=== PATIENT | male | born 1960 | race Caucasian/White ===

== ENCOUNTER → 2017-10-24 13:58 | Outpatient (CLI) | payer BC, SELFPAY ==
[2017-10-24 16:08] LABS: Absolute Lymphocyte Count 1.31 X10^3/ul (0.83-4.51); Absolute Neutrophil Count 2.4 X10^3/uL (2.0-7.7); Basophil% 2.2 % (0-1); Eosinophil# 0.24 X10^3/uL; Eosinophils% 5.2 % (0-5); Hematocrit 38.8 % (40-54); Hemoglobin 12.6 g/dl (13.0-16.5); Lymphocyte # 1.31 X10^3/ul (4.0); Lymphocyte % 28.4 % (19-41); Mean Corp Hgb Conc 32.5 g/gl (32-36); Mean Corpuscular Hgb 29.5 pg (27.0-32.0); Mean Corpuscular Volume 90.9 fL (80-94); Mean Platelet Vol. 10.8 fl (6.2-12.0); Monocyte% 10.8 % (0-10); Neutrophil % 52.1 % (47-70); Platelet Count 272 K/mm3 (150-450); RBC Distribution Width CV 14.1 % (11.6-14.6); RBC Distribution Width SD 45.7 fl (35.1-43.9); Red Blood Count 4.27 M/mm3 (4.6-6.2); White Blood Count 4.6 K/mm3 (4.4-11.0)
[2017-10-24 16:16] LABS: POSITIVE COUNT NO; POSITIVE DIFFERENTIAL NO; POSITIVE MORPHOLOGY NO
[2017-10-24 16:40] LABS: ALB/GLOB Ratio 1.1 RATIO (0.9-2.4); AST(SGOT) 14 U/L (15-37); Alanine Aminotransfer ALT/SGPT 26 U/L (16-61); Albumin, Serum 3.8 g/dL (3.2-5.0); Alkaline Phosphatase 80 U/L (45-117); Anion Gap 5 (5-15); BUN 19 mg/dL (7-18); BUN/Creat Ratio 21.9 RATIO (10-20); Calcium,Total 8.7 mg/dL (8.5-10.1); Chloride 103 mmol/L (98-107); Creatinine, Serum 0.87 mg/dL (0.70-1.30); EST Glomerular Filtration Rate 97 mL/min (>60); Est Glom Filt Rate - Afr Amer 117 mL/min (>60); Globulin 3.4 g/dL (2.2-4.2); Glucose 77 mg/dL (74-106); Potassium 3.8 mmol/L (3.5-5.1); Protein, Total 7.2 g/dL (6.4-8.2); Sodium Level 139 mmol/L (136-145)
== END ==
PROVIDERS: Family Provider Family Medicine; PCP Family Medicine; Visit Provider Internal Medicine Rheumatology
DX: L40.59 Other psoriatic arthropathy (principal); Z79.899 Other long term (current) drug therapy; L40.8 Other psoriasis; M18.11 Unilateral primary osteoarthritis of first carpometacarpal joint, right hand
CPT/HCPCS: 36415; 80053; 85025

== ENCOUNTER → 2018-01-25 16:25 | Outpatient (CLI) | payer BC, SELFPAY ==
[2018-01-25 17:05] LABS: Absolute Lymphocyte Count 1.27 X10^3/ul (0.83-4.51); Absolute Neutrophil Count 3.2 X10^3/uL (2.0-7.7); Basophil# 0.11 X10^3/uL; Basophil% 2.1 % (0-1); Eosinophil# 0.27 X10^3/uL; Hematocrit 38.2 % (40-54); Hemoglobin 12.3 g/dl (13.0-16.5); Lymphocyte # 1.27 X10^3/ul (4.0); Lymphocyte % 23.7 % (19-41); Mean Corp Hgb Conc 32.2 g/gl (32-36); Mean Corpuscular Hgb 29.2 pg (27.0-32.0); Mean Corpuscular Volume 90.7 fL (80-94); Mean Platelet Vol. 10.5 fl (6.2-12.0); Monocyte# 0.52 X10^3/uL; Monocyte% 9.7 % (0-10); Neutrophil # 3.16 X10^3/uL (2.7-7.7); Neutrophil % 58.9 % (47-70); Platelet Count 288 K/mm3 (150-450); RBC Distribution Width SD 45.9 fl (35.1-43.9); Red Blood Count 4.21 M/mm3 (4.6-6.2); White Blood Count 5.4 K/mm3 (4.4-11.0)
[2018-01-25 17:33] LABS: ALB/GLOB Ratio 1.3 RATIO (0.9-2.4); AST(SGOT) 24 U/L (15-37); Alanine Aminotransfer ALT/SGPT 30 U/L (16-61); Albumin, Serum 4.1 g/dL (3.2-5.0); Alkaline Phosphatase 76 U/L (45-117); Anion Gap 6 (5-15); BUN 17 mg/dL (7-18); BUN/Creat Ratio 16.3 RATIO (10-20); Calcium,Total 8.6 mg/dL (8.5-10.1); Chloride 106 mmol/L (98-107); Creatinine, Serum 1.04 mg/dL (0.70-1.30); EST Glomerular Filtration Rate 78 mL/min (>60); Est Glom Filt Rate - Afr Amer 95 mL/min (>60); Globulin 3.1 g/dL (2.2-4.2); Glucose 85 mg/dL (74-106); Potassium 3.7 mmol/L (3.5-5.1); Protein, Total 7.2 g/dL (6.4-8.2); Sodium Level 141 mmol/L (136-145)
[2018-01-25 17:41] LABS: POSITIVE COUNT NO; POSITIVE DIFFERENTIAL NO; POSITIVE MORPHOLOGY NO
== END ==
PROVIDERS: Family Provider Family Medicine; PCP Family Medicine; Visit Provider Internal Medicine Rheumatology
DX: L40.59 Other psoriatic arthropathy (principal); Z79.899 Other long term (current) drug therapy; L40.8 Other psoriasis; M18.11 Unilateral primary osteoarthritis of first carpometacarpal joint, right hand; M21.40 Flat foot [pes planus] (acquired), unspecified foot; I10 Essential (primary) hypertension; E03.9 Hypothyroidism, unspecified; E78.5 Hyperlipidemia, unspecified; M51.37 Other intervertebral disc degeneration, lumbosacral region
CPT/HCPCS: 36415; 80053; 85025

== ENCOUNTER → 2018-05-10 11:43 | Outpatient (CLI) | payer BC, SELFPAY ==
[2018-05-10 14:45] LABS: Absolute Lymphocyte Count 1.12 X10^3/ul (0.83-4.51); Absolute Neutrophil Count 2.6 X10^3/uL (2.0-7.7); Basophil# 0.08 X10^3/uL; Basophil% 1.8 % (0-1); Eosinophil# 0.17 X10^3/uL; Eosinophils% 3.9 % (0-5); Hematocrit 40.4 % (40-54); Hemoglobin 12.7 g/dl (13.0-16.5); Lymphocyte # 1.12 X10^3/ul (4.0); Lymphocyte % 25.7 % (19-41); Mean Corp Hgb Conc 31.4 g/gl (32-36); Mean Corpuscular Hgb 28.7 pg (27.0-32.0); Mean Corpuscular Volume 91.4 fL (80-94); Mean Platelet Vol. 10.6 fl (6.2-12.0); Monocyte# 0.41 X10^3/uL; Monocyte% 9.4 % (0-10); Neutrophil # 2.56 X10^3/uL (2.7-7.7); Platelet Count 277 K/mm3 (150-450); RBC Distribution Width SD 45.9 fl (35.1-43.9); Red Blood Count 4.42 M/mm3 (4.6-6.2); White Blood Count 4.4 K/mm3 (4.4-11.0)
[2018-05-10 14:50] LABS: POSITIVE COUNT NO; POSITIVE DIFFERENTIAL NO; POSITIVE MORPHOLOGY NO
[2018-05-10 14:59] LABS: ALB/GLOB Ratio 1.2 RATIO (0.9-2.4); AST(SGOT) 16 U/L (15-37); Alanine Aminotransfer ALT/SGPT 29 U/L (16-61); Albumin, Serum 3.9 g/dL (3.2-5.0); Alkaline Phosphatase 73 U/L (45-117); Anion Gap 8 (5-15); BUN 13 mg/dL (7-18); BUN/Creat Ratio 11.4 RATIO (10-20); Chloride 103 mmol/L (98-107); Creatinine, Serum 1.14 mg/dL (0.70-1.30); EST Glomerular Filtration Rate 70 mL/min (>60); Est Glom Filt Rate - Afr Amer 85 mL/min (>60); Globulin 3.2 g/dL (2.2-4.2); Glucose 86 mg/dL (74-106); Potassium 3.7 mmol/L (3.5-5.1); Protein, Total 7.1 g/dL (6.4-8.2); Sodium Level 140 mmol/L (136-145)
== END ==
PROVIDERS: Family Provider Family Medicine; PCP Family Medicine; Visit Provider Internal Medicine Rheumatology
DX: L40.59 Other psoriatic arthropathy (principal); Z79.899 Other long term (current) drug therapy; L40.8 Other psoriasis; M18.11 Unilateral primary osteoarthritis of first carpometacarpal joint, right hand
CPT/HCPCS: 36415; 80053; 85025

== ENCOUNTER → 2018-05-23 12:44 | Outpatient (CLI) | payer BC, SELFPAY ==
--- NOTE | 2018-05-23 12:46 | CT_ITS ---
STUDY: CT ABDOMEN AND PELVIS WITH CONTRAST REASON FOR EXAM: Male, 57 years old. Weight loss. Diarrhea. Abdominal pain RADIATION DOSAGE (If Supplied By Facility): CTDIvol = ( 17.05 ) mGy, DLP = ( 1172.72 ) mGycm TECHNIQUE: Transaxial images were obtained from the dome of the diaphragm to the symphysis pubis with oral contrast. 100 ml of Isovue 300 contrast was administered. Sagittal and coronal images were reconstructed. Individualized dose optimization techniques were used for this CT. COMPARISON: December 22, 2015 FINDINGS: The visualized lung bases are unremarkable. The visualized portions of the heart are within normal limits. There is hepatomegaly with diffuse hepatic enlargement. Normal gallbladder and extrahepatic biliary system. Normal spleen. There are pancreatic calcifications in the head and uncinate process consistent with chronic pancreatitis. Normal bilateral adrenal glands. Normal right kidney. Normal left kidney. Normal visualized stomach. Normal small intestine. There are multiple colonic diverticula consistent with diverticulosis. There is moderate stool. The appendix is visualized and appears normal. There is atherosclerotic calcification of the abdominal aorta with elongation and tortuosity, but without a demonstrated aneurysm. Normal inferior vena cava. Normal retroperitoneum. Normal urinary bladder. There is enlargement of the prostate gland. There is no free fluid in the abdomen or pelvis. Normal abdominal wall. There is levoscoliosis with degenerative change of the spine. There is sclerosis at the sacroiliac joints. CT/Abdomen/Pelvis WITH Contrast IMPRESSION: No dominant mass or obstruction. Colonic diverticulosis. Hepatomegaly. Pancreatic calcifications consistent with chronic pancreatitis Electronically Signed: Willis Jaffe MD at 9:49 EDT , Service support ,
== END ==
PROVIDERS: Family Provider Family Medicine; PCP Family Medicine; Visit Provider Surgery
DX: R10.10 Upper abdominal pain, unspecified (principal); R19.7 Diarrhea, unspecified; R63.4 Abnormal weight loss
CPT/HCPCS: 74177; Q9967

== ENCOUNTER 2018-05-29 09:30 | Day surgery (SDC) | payer BC, SELFPAY ==
--- NOTE | 2018-05-29 | COLBX_PTH ---
PATIENT: MYRANDA OLEA LOC: EN U#:[id number] AGE/SX: 57/M ROOM: RE05/29/[address]: Dr. Justin Aragon MD : 1960 BED: DIS: 05/29/2018 SPEC #: [id number] RECD: 05/29/18 11:47 STATUS: GERMAIN RADHA #: [id number] MIGUEL: 05/29/18 00:[address]: Justin Aragon DEPT: SURGICAL PATHOLOGY RECD BY: Antony Munoz ENTERED: 05/29/18 11:48 SP TYPE: COLON BX OTHR DR: Dr. William Amado DO Tissues: A - Small intestine biopsy B - Gastric mucous membrane C - Descending colon Procedures: Surgery Specimen Level IV HEADER OPERATION: Colonoscopy, EGD ([facility]) PRE-OP DIAGNOSIS: Pain of upper abdomen, diarrhea, weight loss TISSUE SUBMITTED: A - Small bowel biopsy, B - Antral biopsy for histo and H. pylori, C - Descending polyp MICROSCOPIC DIAGNOSIS A. Small bowel, biopsy: A fragment of small intestinal mucosa, no pathologic diagnosis. B. Antral biopsy: Mild gastritis. See microscopic description and comment. C. Descending colon polyp, biopsy: Tubular adenoma. SJ:ruthie 05/30/18 COMMENT B. The results of immunohistochemistry for Helicobacter pylori will be reported separately ([id number]). MICROSCOPIC DESCRIPTION Slides are reviewed. B. The specimen shows fragments of gastric mucosa with chronic inflammatory cell infiltrates in the lamina propria consisting of lymphocytes and plasma cells, consistent with mild chronic gastritis. GROSS DESCRIPTION A - Received in fixative is one container labeled with the patient's name and designated small bowel biopsy. The specimen consists of one irregular fragment of light dsouza soft tissue that measures 0.4 x 0.3 x 0.1 cm. The specimen is totally submitted in one cassette. B - Received in fixative is one container labeled with the patient's name and designated antral biopsy. The specimen consists of one irregular fragment of light dsouza soft tissue that measures 0.6 x 0.2 x 0.1 cm. The specimen is totally submitted in one cassette. C - Received in fixative is one container labeled with the patient's name and designated descending polyp. The specimen consists of a piece of dsouza-pink polyp measuring 0.4 x 0.4 x 0.3 cm. The specimen is totally submitted in one cassette. / SJ:rg 05/29/18 TC:4 CPT: 78394 x3
--- NOTE | 2018-05-29 | IMM_PTH ---
PATIENT: MYRANDA OLEA LOC: EN U#:[id number] AGE/SX: 57/M ROOM: RE05/29/[address]: Dr. Justin Aragon MD : 1960 BED: DIS: 05/29/2018 SPEC #: [id number] RECD: 05/29/18 11:54 STATUS: GERMAIN RENickolas #: [id number] MIGUEL: 05/29/18 00:[address]: Justin Aragon DEPT: IMMUNOHISTOCHEMISTRY RECD BY: Silvia Quintero ENTERED: 05/29/18 11:55 SP TYPE: IMMUNO OTHR DR: Dr. William Amado DO Tissues: B - Stomach, NOS Procedures: H Pylori (initial) PHYSICIAN & INSTITUTION [place] [id number] SPECIMEN INFORMATION: Tissue Source: B - Antral biopsy Clinical Info: Pain of upper abdomen, diarrhea, weight loss Specimen Number: [id number] CPT code: 42505 METHODOLOGY: Deparaffinized sections of prefer/formalin-fixed tissue or PAP/DQ stained slides are incubated with monoclonal/polyclonal antibodies/oligonucleotide probes. Localization is made via biotin free immunoperoxidase method. Appropriate controls are performed and reacted as expected. Results on target cell population are indicated in the following table: RESULTS: ANTIBODY / CLONE RESULT Block B H Pylori (polyclonal) negative These tests were developed and their performance characteristics determined by [facility]. They may not have been cleared or approved by the [place]. Food and Drug Administration. The FDA has determined that such clearance or approval is not necessary. INTERPRETATION: B. Antral biopsy: Negative for Helicobacter pylori organisms. SJ:ruthie 05/31/18
[2018-05-29 09:49] VITALS: BP 132/79; PULSE 57; RESP 16; TEMP 35.9; O2SAT 100; BMI 28.3
[2018-05-29 11:00] VITALS: BP 132/79; BP 96/62; PULSE 61; RESP 14; TEMP 36.8; O2SAT 99
--- NOTE | 2018-05-29 11:00 | OP.ENDO_ITS ---
Patient Name: Sunny Morrison Procedure Date: 05/29/2018 10:28 AM Date of : 1960 Age: 57 Procedure: Upper GI endoscopy Indications: Upper abdominal pain, Endoscopy to assess diarrhea in patient suspected of having celiac disease Providers: Justin Aragon MD Referring MD: Justin Aragon MD Medicines: See the Anesthesia note for documentation of the administered medications Patient Profile: Patient has symptoms of chronic epigastric abdominal pain and chronic abdominal pain. Complications: No immediate complications. Procedure: Pre-Anesthesia Assessment: - Prior to the procedure, a History and Physical was performed, and patient medications and allergies were reviewed. The patient's tolerance of previous anesthesia was also reviewed. The risks and benefits of the procedure and the sedation options and risks were discussed with the patient. All questions were answered, and informed consent was obtained. Prior Anticoagulants: The patient has taken aspirin, last dose was 1 day prior to procedure. ASA Grade Assessment: III - A patient with severe systemic disease. After reviewing the risks and benefits, the patient was deemed in satisfactory condition to undergo the procedure. After obtaining informed consent, the endoscope was passed under direct vision. Throughout the procedure, the patient's blood pressure, pulse, and oxygen saturations were monitored continuously. The gastroscope was introduced through the mouth, and advanced to the second part of duodenum. The upper GI endoscopy was accomplished without difficulty. The patient tolerated the procedure well. Scope In: 10:35:54 AM Scope Out: 10:38:43 AM Total Procedure Duration Time 0 hours 2 minutes 49 seconds Findings: The examined esophagus was normal. Diffuse moderate inflammation characterized by erythema and linear erosions was found in the gastric antrum. Biopsies were taken with a cold forceps for Helicobacter pylori testing. The examined duodenum was normal. Biopsies for histology were taken with a cold forceps for evaluation of celiac disease. Impression: - Normal esophagus. - Gastritis. Biopsied. - Normal examined duodenum. Biopsied. Recommendation: - Await pathology results. - Repeat upper endoscopy in 3 years for surveillance. - Return to my office in 1 week. - Continue present medications. Procedure Code(s): --- Professional --- 87590, Esophagogastroduodenoscopy, flexible, transoral; with biopsy, single or multiple Diagnosis Code(s): --- Professional --- K29.70, Gastritis, unspecified, without bleeding R10.10, Upper abdominal pain, unspecified R19.7, Diarrhea, unspecified CPT copyright 2017 [employer]. All rights reserved. The codes documented in this report are preliminary and upon coffee roaster helper review may be revised to meet current compliance requirements. MD Justin Martinez MD 05/29/2018 10:59:32 AM This report has been signed electronically. Number of Addenda: 0 Note Initiated On: 05/29/2018 10:28 AM
[2018-05-29 11:05] VITALS: BP 105/69; BP 132/79; PULSE 55; RESP 16; O2SAT 99
--- NOTE | 2018-05-29 11:06 | OP.ENDO_ITS ---
Patient Name: Sunny Morrison Procedure Date: 05/29/2018 10:40 AM Date of : 1960 Age: 57 Procedure: Colonoscopy Indications: Upper abdominal pain, Chronic diarrhea Providers: Justin Aragon MD Referring MD: Justin Aragon MD Medicines: See the Anesthesia note for documentation of the administered medications Patient Profile: Patient has symptoms of chronic epigastric abdominal pain and chronic abdominal pain. Last Colonoscopy: 2010. Patient has symptoms of chronic diarrhea. Complications: No immediate complications. Procedure: Pre-Anesthesia Assessment: - Prior to the procedure, a History and Physical was performed, and patient medications and allergies were reviewed. The patient's tolerance of previous anesthesia was also reviewed. The risks and benefits of the procedure and the sedation options and risks were discussed with the patient. All questions were answered, and informed consent was obtained. Prior Anticoagulants: The patient has taken aspirin, last dose was 1 day prior to procedure. ASA Grade Assessment: III - A patient with severe systemic disease. After reviewing the risks and benefits, the patient was deemed in satisfactory condition to undergo the procedure. - Prior to the procedure, a History and Physical was performed, and patient medications and allergies were reviewed. The patient's tolerance of previous anesthesia was also reviewed. The risks and benefits of the procedure and the sedation options and risks were discussed with the patient. All questions were answered, and informed consent was obtained. Prior Anticoagulants: The patient has taken aspirin, last dose was 7 days prior to procedure. ASA Grade Assessment: III - A patient with severe systemic disease. After reviewing the risks and benefits, the patient was deemed in satisfactory condition to undergo the procedure. After I obtained informed consent, the scope was passed under direct vision. Throughout the procedure, the patient's blood pressure, pulse, and oxygen saturations were monitored continuously. The adult colonoscope was introduced through the anus and advanced to the cecum, identified by appendiceal orifice and ileocecal valve. The colonoscopy was performed without difficulty. The patient tolerated the procedure well. The quality of the bowel preparation was good. Scope In: 10:41:06 AM Scope Withdrawal Time 0 hours 7 minutes 36 seconds Scope Out: 10:51:48 AM Total Procedure Duration Time 0 hours 10 minutes 42 seconds Findings: The perianal and digital rectal examinations were normal. Pertinent negatives include normal sphincter tone and normal prostate (size, shape, and consistency). A 5 mm polyp was found in the descending colon. The polyp was sessile. The polyp was removed with a hot snare. Resection and retrieval were complete. The exam was otherwise without abnormality on direct and retroflexion views. The mucosa of the entire colon was normal. No biopsy were done. A few small-mouthed diverticula were found in the sigmoid colon. Impression: - One 5 mm polyp in the descending colon, removed with a hot snare. Resected and retrieved. - The examination was otherwise normal on direct and retroflexion views. Recommendation: - Discharge patient to home. - Resume previous diet. - Continue present medications. - Await pathology results. - Repeat colonoscopy in 3 years for surveillance. - Return to my office in 1 week. Procedure Code(s): --- Professional --- 23617, Colonoscopy, flexible; with removal of tumor(s), polyp(s), or other lesion(s) by snare technique Diagnosis Code(s): --- Professional --- D12.4, Benign neoplasm of descending colon R10.10, Upper abdominal pain, unspecified K52.9, Noninfective gastroenteritis and colitis, unspecified CPT copyright 2017 [employer]. All rights reserved. The codes documented in this report are preliminary and upon associate software development engineer review may be revised to meet current compliance requirements. MD Justin Martinez MD 05/29/2018 11:05:58 AM This report has been signed electronically. Number of Addenda: 0 Note Initiated On: 05/29/2018 10:40 AM
[2018-05-29 11:10] VITALS: BP 108/72; BP 132/79; PULSE 56; RESP 16; O2SAT 99
[2018-05-29 11:15] VITALS: BP 109/76; BP 132/79; PULSE 56; RESP 16; TEMP 36.5; O2SAT 99
[2018-05-29 11:45] VITALS: BP 132/79
== END 2018-05-29 11:57 | disposition home or self-care (01) ==
LOC: EN 09:30 → AC 09:32
PROVIDERS: Family Provider Family Medicine; PCP Family Medicine; Visit Provider Surgery
PROC: 0DJD8ZZ Inspection of Lower Intestinal Tract, Via Natural or Artificial Opening Endoscopic (ICD-10-PCS; CPT 45378; principal; 2018-05-29 10:40)
DX: K29.70 Gastritis, unspecified, without bleeding (principal); D12.4 Benign neoplasm of descending colon; K57.30 Diverticulosis of large intestine without perforation or abscess without bleeding; E03.9 Hypothyroidism, unspecified; E78.00 Pure hypercholesterolemia, unspecified; D64.9 Anemia, unspecified; M06.9 Rheumatoid arthritis, unspecified; I10 Essential (primary) hypertension; E66.9 Obesity, unspecified; G47.30 Sleep apnea, unspecified; Z87.19 Personal history of other diseases of the digestive system; Z90.49 Acquired absence of other specified parts of digestive tract; Z79.82 Long term (current) use of aspirin; Z79.899 Other long term (current) drug therapy
CPT/HCPCS: 43239; 45385; 88305; 88342; J7120

== ENCOUNTER → 2018-07-11 10:59 | Outpatient (CLI) | payer BC, SELFPAY | PROVIDERS: Family Provider Family Medicine; PCP Family Medicine; Referring Provider Internal Medicine Gastroenterology; Visit Provider Internal Medicine Gastroenterology | DX: R19.7 Diarrhea, unspecified (principal) | CPT/HCPCS: 36415 ==

== ENCOUNTER → 2018-08-04 10:34 | Outpatient (CLI) | payer BC, SELFPAY ==
[2018-08-04 12:19] LABS: Absolute Lymphocyte Count 1.23 X10^3/ul (0.83-4.51); Absolute Neutrophil Count 2.9 X10^3/uL (2.0-7.7); Eosinophil# 0.26 X10^3/uL; Eosinophils% 5.1 % (0-5); Hematocrit 38.4 % (40-54); Hemoglobin 12.3 g/dl (13.0-16.5); Lymphocyte # 1.23 X10^3/ul (4.0); Lymphocyte % 24.1 % (19-41); Mean Corpuscular Hgb 29.4 pg (27.0-32.0); Mean Corpuscular Volume 91.9 fL (80-94); Mean Platelet Vol. 10.7 fl (6.2-12.0); Monocyte# 0.54 X10^3/uL; Monocyte% 10.6 % (0-10); Neutrophil # 2.92 X10^3/uL (2.7-7.7); Neutrophil % 57.2 % (47-70); Platelet Count 269 K/mm3 (150-450); RBC Distribution Width CV 14.3 % (11.6-14.6); RBC Distribution Width SD 46.9 fl (35.1-43.9); Red Blood Count 4.18 M/mm3 (4.6-6.2); White Blood Count 5.1 K/mm3 (4.4-11.0)
[2018-08-04 12:27] LABS: POSITIVE COUNT NO; POSITIVE DIFFERENTIAL NO; POSITIVE MORPHOLOGY NO
[2018-08-04 12:33] LABS: ALB/GLOB Ratio 1.2 RATIO (0.9-2.4); AST(SGOT) 22 U/L (15-37); Alanine Aminotransfer ALT/SGPT 52 U/L (16-61); Albumin, Serum 3.7 g/dL (3.2-5.0); Alkaline Phosphatase 89 U/L (45-117); Anion Gap 9 (5-15); BUN 23 mg/dL (7-18); BUN/Creat Ratio 24.2 RATIO (10-20); Calcium,Total 8.7 mg/dL (8.5-10.1); Chloride 104 mmol/L (98-107); Creatinine, Serum 0.95 mg/dL (0.70-1.30); EST Glomerular Filtration Rate 86 mL/min (>60); Est Glom Filt Rate - Afr Amer 105 mL/min (>60); Globulin 3.2 g/dL (2.2-4.2); Glucose 89 mg/dL (74-106); Potassium 3.4 mmol/L (3.5-5.1); Protein, Total 6.9 g/dL (6.4-8.2); Sodium Level 142 mmol/L (136-145)
--- OUTSIDE RECORDS SUMMARY | 2018-09-29 06:39 | XMS RPT_ITS ---
:1960 Author Organization OHIP Support Name Relationship Address Phone REDLOB Unavailable [address] + [place] [address] SIGIFREDO OLEAE Unavailable [address] + [place] [address] MERARI OLEA Unavailable [address] + [place] [address] ZOUP Unavailable [address] [place] [address] KATHRYN OLEAYCE Unavailable [address] + [place] [address] ZOUP Unavailable [address] [place] [address] KATHRYN OLEAYCE Unavailable [address] + [place] [address] ZOUP Unavailable [address] [place] [address] KATHRYN OLEAYCE Unavailable [address] + [place] [address] ZOUP Unavailable [address] [place] [address] KATHRYN OLEAYCE Unavailable [address] + [place] [address] ZOUP Unavailable [address] [place] [address] KATHRYN OLEAYCE Unavailable [address] + [place] [address] ZOUP Unavailable [address] [place] [address] KATHRYN OLEAYCE Unavailable [address] + [place] [address] ZOUP Unavailable [address] [place] [address] KATHRYN OLEAYCE Unavailable [address] + [place] [address] ZOUP Unavailable [address] [place] [address] KATHRYN OLEAYCE Unavailable [address] + [place] [address] ZOUP Unavailable [address] [place] [address] REDLOB Unavailable [address] + [place] [address] KATHRYN OLEAYCE Unavailable [address] + [place] [address] REDLOB Unavailable [address] + [place] [address] KATHRYN OLEAYCE Unavailable [address] + [place] [address] REDLOB Unavailable [address] + [place] [address] KATHRYN OLEAYCE Unavailable [address] + [place] [address] REDLOB Unavailable [address] + [place] [address] KATHRYN OLEAYCE Unavailable [address] + [place] [address] REDLOB Unavailable [address] + [place] [address] KATHRYN OLEAYCE Unavailable [address] + [place] [address] REDLOB Unavailable [address] + [place] [address] SIGIFREDO OLEAE Unavailable [address] + [place] [address] REDLOB Unavailable [address] + [place] [address] KATHRYN OLEAYCE Unavailable [address] + [place] [address] Care Team Providers Name Role Phone Jay Villegas Attending Unavailable RENETTA AMADO Referring Unavailable RENETTA AMADO Primary Care Unavailable Jay Villegas Attending Unavailable RENETTA AMADO Primary Care Unavailable Jay Villegas Attending Unavailable RENETTA AMADO Primary Care Unavailable Jay Villegas Attending Unavailable PETRILLA, RENETTA Referring Unavailable PETRILLA, RENETTA Primary Care Unavailable Vellanki, Argenis Attending Unavailable Vellanki, Argenis Referring Unavailable PETRILLA, RENETTA Primary Care Unavailable DossiIvette vargas D.C. Attending Unavailable PETRILLA, RENETTA Referring Unavailable PETRILLA, RENETTA Primary Care Unavailable Vellanki, Argenis Attending Unavailable Vellanki, Argenis Referring Unavailable PETRILLA, RENETTA Primary Care Unavailable DossiIvette vargas D.C. Attending Unavailable PETRILLA, RENETTA Referring Unavailable PETRILLA, RENETTA Primary Care Unavailable Vellanki, Argenis Attending Unavailable Vellanki, Argenis Referring Unavailable PETRILLA, RENETTA Primary Care Unavailable Mahesh, Justin Attending Unavailable PETRILLA, RENETTA Referring Unavailable PETRILLA, RENETTA Primary Care Unavailable Mahesh, Justin Attending Unavailable [place], Justin Referring Unavailable PETRILLA, RENETTA Primary Care Unavailable Mahesh, Justin Attending Unavailable [place], Justin Referring Unavailable PETRILLA, RENETTA Primary Care Unavailable [place], Justin Attending Unavailable PETRILLA, RENETTA Referring Unavailable [place], Justin Attending Unavailable Kefalas, Buzz H Attending Unavailable Kefalas, Buzz H Referring Unavailable PETRILLA, RENETTA Primary Care Unavailable Vellanki, Argenis Attending Unavailable Vellanki, Argenis Referring Unavailable PETRILLA, RENETTA Primary Care Unavailable DossieIvette D.C. Attending Unavailable PETRILLA, RENETTA Referring Unavailable PETRILLA, RENETTA Primary Care Unavailable PROBLEMS PROBLEMS DATE TYPE CONDITION / CODE ATTENDING STATUS SOURCE 07/17/2018 Unknown R19.7 - Diarrhea, Donald Scotts Active [place] unspecified / H Community R19.7(ICD-10) Hospital Repository 06/15/2018 Unknown R10.10 - Upper Justin Aragon Active [place] abdominal pain, Community unspecified / Hospital R10.10(ICD-10) Repository 06/15/2018 Unknown K29.70 - Gastritis, MaheshJustin Active [facility] unspecified, without Community bleeding / Hospital K29.70(ICD-10) Repository 05/17/2018 Unknown R63.4 - Abnormal Justin Aragon Active [place] weight loss / Community R63.4(ICD-10) Hospital Repository 10/24/2017 Unknown L40.59 - Other Vellanki, Argenis Active [facility] psoriatic arthropathy Community / L40.59(ICD-10) Hospital Repository 10/24/2017 Unknown Z79.899 - Other long Argenis Varela Active [place] term (current) drug Community therapy / Hospital Z79.899(ICD-10) Repository 10/24/2017 Unknown L40.8 - Other Argenis Varela Active [place] psoriasis / Community L40.8(ICD-10) Hospital Repository 10/24/2017 Unknown M18.11 - Unilateral Argenis Varela Active [facility] primary Community osteoarthritis of Hospital first carpometacarpal Repository joint, right hand / M18.11(ICD-10) 09/12/2017 Unknown M75.101 - Unspecified Jay Villegas Active [place] rotator cuff tear or Community rupture of right Hospital shoulder, not Repository specified as traumatic / M75.101(ICD-10) 08/24/2017 Unknown M25.511 - Pain in Jay Villegas Active [place] right shoulder / Community M25.511(ICD-10) Hospital Repository 08/18/2017 Unknown M99.05 - Segmental Dossie, Ivette Active [facility] and somatic D.C. Community dysfunction of pelvic Hospital region / Repository M99.05(ICD-10) 08/18/2017 Unknown M99.03 - Segmental Dossie, Ivette Active [place] and somatic [facility] Community dysfunction of lumbar Hospital region / Repository M99.03(ICD-10) 08/18/2017 Unknown M99.02 - Segmental Dossie, Ivette Active [facility] and somatic [facility] Community dysfunction of Hospital thoracic region / Repository M99.02(ICD-10) 08/18/2017 Unknown M06.9 - Rheumatoid Dossie, Ivette Active [place] arthritis, [facility] Community unspecified / Hospital M06.9(ICD-10) Repository 08/18/2017 Unknown M99.01 - Segmental Dossie, Ivette Active [place] and somatic [facility]. Community dysfunction of Hospital cervical region / Repository M99.01(ICD-10) PROCEDURES PROCEDURES No Procedure Records FoundRESULTS RESULTS CBC W/DIFF, AUTOMATED Collected: 08/04/2018 Status: F Source: [place] 10:39 AM [facility] TYPE CODE TESTS RESULT OUT OF RANGE REFERENCE UNITS LAB L100.1000 4.4-11.0 K/mm3 Normal WBC 5.1 LAB L100.1200 4.6-6.2 M/mm3 Low RBC 4.18 LAB L100.1300 13.0-16.5 g/dl Low HGB 12.3 LAB L100.1400 40-54 % Low HCT 38.4 LAB L100.1500 80-94 fL Normal MCV 91.9 LAB L100.1600 27.0-32.0 pg Normal MCH 29.4 LAB L100.1700 32-36 g/gl Normal MCHC 32.0 LAB L100.1810 11.6-14.6 % Normal RDW CV 14.3 LAB L100.1820 35.1-43.9 fl High RDW SD 46.9 LAB L100.1900 150-450 K/mm3 Normal PLT 269 LAB L100.2000 6.2-12.0 fl Normal MPV 10.7 LAB L100.2100 47-70 % Normal NEUT% 57.2 LAB L100.2200 19-41 % Normal LY% 24.1 LAB L100.2300 0-10 % High MONO% 10.6 LAB L100.2400 0-5 % High EO% 5.1 LAB L100.2500 0-1 % High BASO% 2.0 LAB L100.2550 0.0-0.9 % High IM GRAN % 1.000 Result Comment: IG% - Immature Granulocytes (promyelocytes, myelocytes and metamyelocytes) > 1% indicates that a LEFT SHIFT is Present. LAB L100.2620 2.0-7.7 X10 3/uL Normal Absolute Neut 2.9 LAB L100.2720 0.83-4.51 X10 3/ul Normal Absolute Lymph 1.23 Performed By: #### L100.0100 #### [facility] [address] [place], [place] [address], [address] COMPREHENSIVE METABOLIC Collected: 08/04/2018 Status: F Source: [facility] 10:39 AM [facility] REPOSITORY TYPE CODE TESTS RESULT OUT OF RANGE REFERENCE UNITS LAB L501.0100 74-106 mg/dL Normal GLU 89 Result Comment: Please note revised GLUCOSE reference range effective 2017. LAB L501.1000 7-18 mg/dL High BUN 23 LAB L501.1100 0.70-1.30 mg/dL Normal CREAT,SERUM 0.95 Result Comment: The validity of the calculated GFR AND GFRAA in patients over 70 years has not been determined. Clinical correlation is essential. LAB L501.1110 >60 mL/min Normal EST GFR 86 Result Comment: Non- GFR Calc LAB L501.1115 >60 mL/min Normal EST GFR - AA 105 Result Comment: GFR Calc LAB L501.1300 10-20 RATIO High BUN/CRE 24.2 LAB L501.1500 6.4-8.2 g/dL T Normal PROT 6.9 LAB L501.1800 3.2-5.0 g/dL Normal ALB 3.7 LAB L501.1950 2.2-4.2 g/dL Normal GLOB 3.2 LAB L501.2000 0.9-2.4 RATIO Normal A/G 1.2 LAB L501.2200 8.5-10.1 mg/dL CA Normal 8.7 LAB L501.4100 15-37 U/L Normal AST 22 LAB L501.4305 45-117 U/L Normal ALK P 89 LAB L501.4405 16-61 U/L Normal ALT 52 LAB L501.4600 0.20-1.00 mg/dL T Normal BILI 0.60 LAB L501.5300 136-145 mmol/L NA Normal 142 LAB L501.5600 3.5-5.1 mmol/L Low K 3.4 LAB L501.5900 98-107 mmol/L CL Normal 104 LAB L501.6100 21.0-32.0 mmol/L Normal CO2 29.0 LAB L501.6200 5-15 Normal GAP 9 Performed By: #### L500.4050 #### [facility] [address] [place], [place], [address] MISCELLANEOUS LAB Collected: 07/11/2018 Status: F Source: [place] PROCEDURE 2 11:03 AM [facility] REPOSITORY Order Comment: Comments: [id number] AND [id number] List Test(s) Ordered by Physician: GLIADIN IGG [id number] SST RT TYPE CODE TESTS RESULT OUT OF RANGE REFERENCE UNITS LAB L801.[address] [facility] [place] 2 Result Comment: TEST RESULT UNITS REF INTERVAL Antigliadin Abs, IgG Deamidated Gliadin Abs, IgG 2 units 0 - 19 Negative 0 - 19 Weak Positive 20 - 30 Moderate to Strong Positive >30 TESTING PERFORMED AT [facility]. ORIGINAL REPORT ON FILE IN LAB CONTAINS ADDITIONAL TEST SITE INFORMATION. Performed By: #### L801.1543 #### [facility] [address] [place], [address] MISCELLANEOUS LAB Collected: 07/11/2018 Status: F Source: [place] PROCEDURE 11:03 AM [facility] REPOSITORY Order Comment: Comments: [id number] AND [id number] Test(s) Ordered: GLIADIN IGA [id number] SST/RT TYPE CODE TESTS RESULT OUT OF RANGE REFERENCE UNITS LAB L801.[address] [facility] [place] Result Comment: TEST RESULT UNITS REF INTERVAL Antigliadin Abs, IgA Deamidated Gliadin Abs, IgA 5 units 0 - 19 Negative 0 - 19 Weak Positive 20 - 30 Moderate to Strong Positive >30 TESTING PERFORMED AT [facility]. ORIGINAL REPORT ON FILE IN LAB CONTAINS ADDITIONAL TEST SITE INFORMATION. Performed By: #### L801.1541 #### [facility] [address] [place], [address] SURGERY VISIT REPORT Observed: 06/06/2018 Status: F Source: [place] 9:47 AM [facility] REPOSITORY [facility] [address] [place] [address] OFFICE VISIT Date of Service: 06/05/18 MR#: [id number] Acct: [id number] Name: SUNNY OLEA Rep #: [id number] : 1960 Provider: Justin Aragon MD Age/Sex: 57/M Location: [facility] Status: Signed Intake Intake Visit Reasons: 1 WK F/U UPPER AND LOWER SCOPE 05/29 Chief Complaint: neck and back pain Allergies diltiazem [From Cardizem] Allergy (Unknown, Verified 06/05/18 08:13) Unknown gluten Allergy (Verified 06/05/18 08:13) Abd cramps/diarrhea Milk Containing Products Allergy (Verified 06/05/18 08:13) Diarrhea Medications Apremilast [Otezla] 30 mg PO BID 12/22/15 [History Confirmed 06/05/18] Aspirin [Adult Low Dose Aspirin EC] 81 mg PO DAILY 12/22/15 [History Confirmed 06/05/18] Carvedilol [Coreg] 25 mg PO BID 12/22/15 [History Confirmed 06/05/18] Finasteride [Proscar] 5 mg PO DAILY 12/22/15 [History Confirmed 06/05/18] Hydralazine HCl 100 mg PO TID 12/22/15 [History Confirmed 06/05/18] Levothyroxine [Synthroid] 50 mcg PO DAILY 12/22/15 [History Confirmed 06/05/18] Lisinopril [Zestril] 40 mg PO DAILY 12/22/15 [History Confirmed 06/05/18] Loratadine [Claritin] 10 mg PO DAILY PRN 12/22/15 [History Confirmed 06/05/18] Meloxicam [Mobic] 15 mg PO DAILY PRN PRN 12/22/15 [History Confirmed 06/05/18] methotrexate sodium 2.5 mg tablet 12.5 mg PO QWEEK 08/19/17 [History Confirmed 06/05/18] multivitamin tablet 1 tab PO QAM 08/19/17 [History Confirmed 06/05/18] clonidine HCl 0.1 mg tablet 0.1 mg PO BID tab 09/09/17 [History Confirmed 10/01/18] fluticasone 50 mcg/actuation nasal spray,suspension 1 spray INTRANASAL DAILY PRN 05/17/18 [History Confirmed 06/05/18] prednisone 10 mg tablet 10 mg PO DAILY PRN 05/17/18 [History Confirmed 06/05/18] Bismuth Subsalicylate [Pepto-Bismol] 262 mg PO TID 05/25/18 [History Confirmed 06/05/18] leucovorin tablet 15 mg PO QWEEK 05/25/18 [History Confirmed 06/05/18] Subjective Details: Patient is here for follow-up from an upper and lower endoscopy completed at [facility] on 05/29/2018. This was done for upper abdominal pain diarrhea and weight loss. Prior to this procedure obtain a CAT scan of his abdomen which showed some calcifications within the pancreas itself consistent with probable chronic pancreatitis. His upper endoscopy showed mild gastritis biopsy for H. pylori was negative. In addition I biopsied his small bowel which showed a fragment of small intestine with no pathologic diagnosis. Patient has been on a gluten-free diet for quite some time. Colonoscopy revealed entirely normal looking mucosa and a tubular adenoma in the descending colon which was subsequently removed. The patient has been using Nexium [id number] 2 pills daily and has noticed some improvement in his epigastric discomfort. He still is getting a lot of abdominal bloating. Objective Details: Patient's lungs are clear to auscultation Heart is regular rate and rhythm Abdomen is soft nontender nondistended normal active bowel sounds. No palpable masses and no abdominal bruits. Assessment AND Plan Problems 1. Abdominal pain R10.9 2. Diarrhea R19.7 3. Weight loss, non-intentional R63.4 4. Gastritis K29.70 5. Pancreatic calcification K86.89 Plan At this point I think I am going to have to get him to a bellhop service captain to be evaluated for chronic pancreatitis his CAT scan does not reveal any ductal dilatation and it is been over 2 years since I removed his gallbladder for acute cholecystitis. I have continued to encourage a low-fat diet. Patient is currently on methotrexate for his rheumatoid arthritis. And I have encouraged him to get back to the senior front end developer to make sure that his methotrexate dose does not need to be adjusted given the fact that he is taking a proton pump inhibitor. Patient would like to be seen by gastroenterology department at [facility] for evaluation for potential ERCP and/or pancreatic enzyme replacement. I will try to give the bellhop service captain to call to identify if there is any other test that he/she would like me to order prior to the appointment. Plan Detail Goals Decrease pain and spasm Barriers RA Coding Level of Care Code Off vis,est,level 2 Diagnoses Abdominal pain R10.9 Diarrhea R19.7 Weight loss, non-intentional R63.4 Gastritis K29.70 Pancreatic calcification K86.89 06/06/18 0947 <Electronically signed by Justin Aragon MD> Date Justin Aragon MD Cosigner Signature: Date (if applicable) CC: DIDI Amado OPERATIVE REPORT - Observed: 05/29/2018 Status: F Source: [facility] 11:06 AM [facility] REPOSITORY [facility] Medical Records Department [address] [place] [address] Operative Report - Endoscopy MR#: [id number] Acct: [id number] Name: SUNNY OLEA Rep #: [id number] : 1960 57 From: Justin Aragon MD PCP: DIDI Mar Status: REG [facility] Patient Name: Sunny Olea Procedure Date: 05/29/2018 10:40 AM Date of : 1960 Age: 57 Procedure: Colonoscopy Indications: Upper abdominal pain, Chronic diarrhea Providers: Justin Aragon MD Referring MD: Justin Aragon MD Medicines: See the Anesthesia note for documentation of the administered medications Patient Profile: Patient has symptoms of chronic epigastric abdominal pain and chronic abdominal pain. Last Colonoscopy: 2010. Patient has symptoms of chronic diarrhea. Complications: No immediate complications. Procedure: Pre-Anesthesia Assessment: - Prior to the procedure, a History and Physical was performed, and patient medications and allergies were reviewed. The patient's tolerance of previous anesthesia was also reviewed. The risks and benefits of the procedure and the sedation options and risks were discussed with the patient. All questions were answered, and informed consent was obtained. Prior Anticoagulants: The patient has taken aspirin, last dose was 1 day prior to procedure. ASA Grade Assessment: III - A patient with severe systemic disease. After reviewing the risks and benefits, the patient was deemed in satisfactory condition to undergo the procedure. - Prior to the procedure, a History and Physical was performed, and patient medications and allergies were reviewed. The patient's tolerance of previous anesthesia was also reviewed. The risks and benefits of the procedure and the sedation options and risks were discussed with the patient. All questions were answered, and informed consent was obtained. Prior Anticoagulants: The patient has taken aspirin, last dose was 7 days prior to procedure. ASA Grade Assessment: III - A patient with severe systemic disease. After reviewing the risks and benefits, the patient was deemed in satisfactory condition to undergo the procedure. After I obtained informed consent, the scope was passed under direct vision. Throughout the procedure, the patient's blood pressure, pulse, and oxygen saturations were monitored continuously. The adult colonoscope was introduced through the anus and advanced to the cecum, identified by appendiceal orifice and ileocecal valve. The colonoscopy was performed without difficulty. The patient tolerated the procedure well. The quality of the bowel preparation was good. Scope In: 10:41:06 AM Scope Withdrawal Time 0 hours 7 minutes 36 seconds Scope Out: 10:51:48 AM Total Procedure Duration Time 0 hours 10 minutes 42 seconds Findings: The perianal and digital rectal examinations were normal. Pertinent negatives include normal sphincter tone and normal prostate (size, shape, and consistency). A 5 mm polyp was found in the descending colon. The polyp was sessile. The polyp was removed with a hot snare. Resection and retrieval were complete. The exam was otherwise without abnormality on direct and retroflexion views. The mucosa of the entire colon was normal. No biopsy were done. A few small-mouthed diverticula were found in the sigmoid colon. Impression: - One 5 mm polyp in the descending colon, removed with a hot snare. Resected and retrieved. - The examination was otherwise normal on direct and retroflexion views. Recommendation: - Discharge patient to home. - Resume previous diet. - Continue present medications. - Await pathology results. - Repeat colonoscopy in 3 years for surveillance. - Return to my office in 1 week. Procedure Code(s): --- Professional --- 18421, Colonoscopy, flexible; with removal of tumor(s), polyp(s), or other lesion(s) by snare technique Diagnosis Code(s): --- Professional --- D12.4, Benign neoplasm of descending colon R10.10, Upper abdominal pain, unspecified K52.9, Noninfective gastroenteritis and colitis, unspecified CPT copyright 2017 [employer]. All rights reserved. The codes documented in this report are preliminary and upon controller mechanic review may be revised to meet current compliance requirements. MD Justin Martinez MD 05/29/2018 11:05:58 AM This report has been signed electronically. Number of Addenda: 0 Note Initiated On: 05/29/2018 10:40 AM 05/29/18 1106 Date [facility] Signature: Date (if indicated) CC: DIDI Amado; Justin Aragon MD Date Dictated: 05/29/18 1040 Date Transcribed: Marketing Specialist: GENARO Signed OPERATIVE REPORT - Observed: 05/29/2018 Status: F Source: [facility] 11:00 AM [facility] REPOSITORY [facility] Medical Records Department [address] [place] [address] Operative Report - Endoscopy MR#: [id number] Acct: [id number] Name: SUNNY OLEA Rep #: [id number] : 1960 57 From: Justin Aragon MD PCP: DIDI Mar Status: REG [facility] Patient Name: Sunny Olea Procedure Date: 05/29/2018 10:28 AM Date of : 1960 Age: 57 Procedure: Upper GI endoscopy Indications: Upper abdominal pain, Endoscopy to assess diarrhea in patient suspected of having celiac disease Providers: Justin Aragon MD Referring MD: Justin Araogn MD Medicines: See the Anesthesia note for documentation of the administered medications Patient Profile: Patient has symptoms of chronic epigastric abdominal pain and chronic abdominal pain. Complications: No immediate complications. Procedure: Pre-Anesthesia Assessment: - Prior to the procedure, a History and Physical was performed, and patient medications and allergies were reviewed. The patient's tolerance of previous anesthesia was also reviewed. The risks and benefits of the procedure and the sedation options and risks were discussed with the patient. All questions were answered, and informed consent was obtained. Prior Anticoagulants: The patient has taken aspirin, last dose was 1 day prior to procedure. ASA Grade Assessment: III - A patient with severe systemic disease. After reviewing the risks and benefits, the patient was deemed in satisfactory condition to undergo the procedure. After obtaining informed consent, the endoscope was passed under direct vision. Throughout the procedure, the patient's blood pressure, pulse, and oxygen saturations were monitored continuously. The gastroscope was introduced through the mouth, and advanced to the second part of duodenum. The upper GI endoscopy was accomplished without difficulty. The patient tolerated the procedure well. Scope In: 10:35:54 AM Scope Out: 10:38:43 AM Total Procedure Duration Time 0 hours 2 minutes 49 seconds Findings: The examined esophagus was normal. Diffuse moderate inflammation characterized by erythema and linear erosions was found in the gastric antrum. Biopsies were taken with a cold forceps for Helicobacter pylori testing. The examined duodenum was normal. Biopsies for histology were taken with a cold forceps for evaluation of celiac disease. Impression: - Normal esophagus. - Gastritis. Biopsied. - Normal examined duodenum. Biopsied. Recommendation: - Await pathology results. - Repeat upper endoscopy in 3 years for surveillance. - Return to my office in 1 week. - Continue present medications. Procedure Code(s): --- Professional --- 93755, Esophagogastroduodenoscopy, flexible, transoral; with biopsy, single or multiple Diagnosis Code(s): --- Professional --- K29.70, Gastritis, unspecified, without bleeding R10.10, Upper abdominal pain, unspecified R19.7, Diarrhea, unspecified CPT copyright 2017 [employer]. All rights reserved. The codes documented in this report are preliminary and upon controller mechanic review may be revised to meet current compliance requirements. MD Justin Martinez MD 05/29/2018 10:59:32 AM This report has been signed electronically. Number of Addenda: 0 Note Initiated On: 05/29/2018 10:28 AM 05/29/18 1059 Date Justin Aragon MD Cosign Signature: Date (if indicated) CC: DIDI Amado; Justin Aragon MD Date Dictated: 05/29/18 1028 Date Transcribed: Marketing Specialist: GENARO Signed COLON BIOPSY (CHOOSE Observed: 05/29/2018 Status: F Source: [facility]) 12:00 AM [facility] REPOSITORY Patient: SUNNY OLEA : 1960 (57/M) Acct Num: [id number] Phys: Justin Aragon MD Unit Num: [id number] Loc: EN Specimen: [id number] Received: 05/29/18 - 1147 Spec Type: COLON BX TISSUES 1 TISSUES: A. Small intestine biopsy B. Gastric mucous membrane C. Descending colon COMMENT B. The results of immunohistochemistry for Helicobacter pylori will be reported separately ([id number]). GROSS DESCRIPTION A - Received in fixative is one container labeled with the patient's name and designated small bowel biopsy. The specimen consists of one irregular fragment of light dsouza soft tissue that measures 0.4 x 0.3 x 0.1 cm. The specimen is totally submitted in one cassette. B - Received in fixative is one container labeled with the patient's name and designated antral biopsy. The specimen consists of one irregular fragment of light dsouza soft tissue that measures 0.6 x 0.2 x 0.1 cm. The specimen is totally submitted in one cassette. C - Received in fixative is one container labeled with the patient's name and designated descending polyp. The specimen consists of a piece of dsouza-pink polyp measuring 0.4 x 0.4 x 0.3 cm. The specimen is totally submitted in one cassette. / SJ:ruthie 05/29/18 TC:4 CPT: 17024 x3 HEADER OPERATION: Colonoscopy, EGD ([facility]) PRE-OP DIAGNOSIS: Pain of upper abdomen, diarrhea, weight loss TISSUE SUBMITTED: A - Small bowel biopsy, B - Antral biopsy for histo and H. pylori, C - Descending polyp MICROSCOPIC DESCRIPTION Slides are reviewed. B. The specimen shows fragments of gastric mucosa with chronic inflammatory cell infiltrates in the lamina propria consisting of lymphocytes and plasma cells, consistent with mild chronic gastritis. MICROSCOPIC DIAGNOSIS A. Small bowel, biopsy: A fragment of small intestinal mucosa, no pathologic diagnosis. B. Antral biopsy: Mild gastritis. See microscopic description and comment. C. Descending colon polyp, biopsy: Tubular adenoma. MIKE:ruthie 05/30/18 Signed Luis Wesley 05/30/18 <signature on file> Performed By: #### PCOLBX #### [facility] [address] [place], [address] IMMUNOHISTOCHEMISTRY Observed: 05/29/2018 Status: F Source: [place] 12:00 AM [facility] REPOSITORY Patient: SUNNY OLEA : 1960 (57/M) Acct Num: [id number] Phys: Justin Aragon MD Unit Num: [id number] Loc: EN Specimen: [id number] Received: 05/29/18 - 1154 Spec Type: IMMUNO TISSUES 1 TISSUES: B. Stomach, NOS SPECIMEN INFORMATION: Tissue Source: B - Antral biopsy Clinical Info: Pain of upper abdomen, diarrhea, weight loss Specimen Number: [id number] CPT code: 54475 METHODOLOGY: Deparaffinized sections of prefer/formalin-fixed tissue or PAP/DQ stained slides are incubated with monoclonal/polyclonal antibodies/oligonucleotide probes. Localization is made via biotin free immunoperoxidase method. Appropriate controls are performed and reacted as expected. Results on target cell population are indicated in the following table: RESULTS: ANTIBODY / CLONE RESULT Block B H Pylori (polyclonal) negative These tests were developed and their performance characteristics determined by [facility]. They may not have been cleared or approved by the U.S. Food and Drug Administration. The FDA has determined that such clearance or approval is not necessary. INTERPRETATION: B. Antral biopsy: Negative for Helicobacter pylori organisms. SJ:ruthie 05/31/18 PHYSICIAN AND INSTITUTION [facility] [address] [place] [address] Signed Luis Wesley 05/31/18 <signature on file> Performed By: #### PIMM #### [facility] [address] [place] [address]. [place], [address] ABDOMEN/PELVIS WITH Observed: 05/23/2018 Status: F Source: [place] CONTRAST 12:46 PM [facility] REPOSITORY [facility] Imaging Services [address] [place] [id number] Abdomen/Pelvis WITH Contrast MR#: [id number] Acct: [id number] Name: SUNNY OLEA Rep #: [id number] : 1960 M 57 From: Willis Jaffe MD PCP: DIDI Mar Status: REG CLI Study: Abdomen/Pelvis WITH Contrast Date of Exam: 05/23/18 Exam# [id number] Ordering Dr: Justin Aragon MD STUDY: CT ABDOMEN AND PELVIS WITH CONTRAST REASON FOR EXAM: Male, 57 years old. Weight loss. Diarrhea. Abdominal pain RADIATION DOSAGE (If Supplied By Facility): CTDIvol = ( 17.05 ) mGy, DLP = ( 1172.72 ) mGycm TECHNIQUE: Transaxial images were obtained from the dome of the diaphragm to the symphysis pubis with oral contrast. 100 ml of Isovue 300 contrast was administered. Sagittal and coronal images were reconstructed. Individualized dose optimization techniques were used for this CT. COMPARISON: December 22, 2015 FINDINGS: The visualized lung bases are unremarkable. The visualized portions of the heart are within normal limits. There is hepatomegaly with diffuse hepatic enlargement. Normal gallbladder and extrahepatic biliary system. Normal spleen. There are pancreatic calcifications in the head and uncinate process consistent with chronic pancreatitis. Normal bilateral adrenal glands. Normal right kidney. Normal left kidney. Normal visualized stomach. Normal small intestine. There are multiple colonic diverticula consistent with diverticulosis. There is moderate stool. The appendix is visualized and appears normal. There is atherosclerotic calcification of the abdominal aorta with elongation and tortuosity, but without a demonstrated aneurysm. Normal inferior vena cava. Normal retroperitoneum. Normal urinary bladder. There is enlargement of the prostate gland. There is no free fluid in the abdomen or pelvis. Normal abdominal wall. There is levoscoliosis with degenerative change of the spine. There is sclerosis at the sacroiliac joints. CT/Abdomen/Pelvis WITH Contrast IMPRESSION: No dominant mass or obstruction. Colonic diverticulosis. Hepatomegaly. Pancreatic calcifications consistent with chronic pancreatitis Electronically Signed: Willis Jaffe MD at 9:49 EDT , Service support , CC: DIDI Amado; Justin Aragon MD Marketing Specialist: Signed SURGERY VISIT REPORT Observed: 05/17/2018 Status: F Source: [place] 10:14 AM [facility] [address] [place] [address] [address] [place] [address] OFFICE VISIT Date of Service: 05/17/18 MR#: [id number] Acct: [id number] Name: SUNNY OLEA Rep #: [id number] : 1960 Provider: Justin Aragon MD Age/Sex: 57/M Location: [facility] Status: Signed Intake Intake Visit Reasons: Abdominal Pain/Diarrhea Chief Complaint: neck and back pain Allergies gluten Allergy (Verified 09/09/17 14:30) Abd cramps/diarrhea Milk Containing Products Allergy (Verified 09/09/17 14:30) Diarrhea Medications Apremilast [Otezla] 30 mg PO BID 12/22/15 [History Confirmed 09/09/17] Aspirin [Adult Low Dose Aspirin EC] 81 mg PO DAILY 12/22/15 [History Confirmed 09/09/17] Carvedilol [Coreg] 25 mg PO BID 12/22/15 [History Confirmed 09/09/17] Finasteride [Proscar] 5 mg PO DAILY 12/22/15 [History Confirmed 09/09/17] Hydralazine HCl 100 mg PO TID 12/22/15 [History Confirmed 09/09/17] Levothyroxine [Synthroid] 50 mcg PO DAILY 12/22/15 [History Confirmed 09/09/17] Lisinopril [Zestril] 40 mg PO DAILY 12/22/15 [History Confirmed 09/09/17] Loratadine [Claritin] 10 mg PO DAILY PRN 12/22/15 [History Confirmed 09/09/17] Meloxicam [Mobic] 15 mg PO DAILY PRN PRN 12/22/15 [History Confirmed 09/09/17] methotrexate sodium 2.5 mg tablet 2.5 mg PO ONCE 08/19/17 [History Confirmed 09/09/17] multivitamin tablet 1 tab PO QAM 08/19/17 [History Confirmed 09/09/17] tamsulosin 0.4 mg capsule 0.4 mg PO QDAY 08/19/17 [History Confirmed 09/09/17] clonidine HCl 0.1 mg tablet 0.1 mg PO BID tab 09/09/17 [History Confirmed 09/09/17] [facility] Medical History Lactose intolerance (Acute) DJD (degenerative joint disease), lumbar (Acute) Eosinophilic esophagitis (Acute) Hypothyroid (Acute) Hypertriglyceridemia (Acute) Anemia (Chronic) Seasonal allergies (Chronic) Bilateral cataracts (Chronic) Rheumatoid arthritis (Chronic) Hypertension (Chronic) Obesity (Chronic) Acute cholecystitis (Acute) Segmental and somatic dysfunction of lumbar region (Acute) Segmental and somatic dysfunction of thoracic region (Acute) Segmental and somatic dysfunction of cervical region (Acute) Surgical History History of esophagogastroduodenoscopy (EGD) (Acute) Hx of tonsillectomy (Acute) Hx of colonoscopy (Acute) Hx of cholecystectomy (Acute) S/P cholecystectomy (Inactive) Family History Mother Cancer Hypertension Father Diabetes Social History Smoking Status: Never smoker HPI HPI HPI: SUNNY OLEA, is a 57 M who presents to the office today for generalized upper abdominal pain, diarrhea, and abnormal weight loss. Patient has had about a 6 week history of stomach cramps bilaterally primarily coming on after he eats. In addition to this he has had significant burping as well as diarrhea with this initially started he thought he was having a flareup of his rheumatoid arthritis. He subsequently took some prednisone but this did not relieve his symptoms. Patient has also had some unintentional weight loss approximately 15 pounds over the last 6 weeks he has been complaining of a significant amount of fatigue he has not had any fevers or chills. Reports no real nausea or vomiting. Patient has had a battery of stool cultures all of which have been negative. Patient had a colonoscopy in 2010 and then approximately a couple years after that he had an upper endoscopy both of these done at the [facility] and I do not have access to these records. Exam Const General: well developed, no acute distress, well hydrated Orientation: oriented to person, oriented to place, oriented to time [facility] Head: normocephalic, atraumatic Ears: external ears normal Mouth: moist mucous membranes Eyes Sclera: sclerae normal Pupils: normal by confrontation Neck Neck: no lymphadenopathy noted Neck mass: No Thyroid: symmetrical, thyroid normal Chest Chest palpation AND inspection: normal inspection of the chest Resp Effort AND Inspection: normal respiratory effort Auscultation: clear to auscultation bilaterally Percussion: percussion normal Cardio Rate: regular rate Rhythm: regular rhythm GI Palpation: soft, no masses, no hepatosplenomegaly, nontender Rectal Exam: other Other: Rectal exam deferred. Extrem General: no clubbing, cyanosis or edema, normal to inspection Assessment AND Plan Problems 1. Pain of upper abdomen R10.10 2. Diarrhea, unspecified type R19.7 3. Weight loss, non-intentional R63.4 Plan I have discussed the above with the patient. I have offered the patient colonoscopy as well as an esophageal duodenoscopy for evaluation. I have explained the risks/benefits of the procedure and described the procedure. I have discussed the risks with the patient, including but not limited to: infection, bleeding, perforation of the GI tract requiring emergency surgery, inability to complete the procedure, injury to any internal organs, complications of anesthesia, etc. - the patient understands and agrees to proceed. I have answered all the patient's questions to the patient's satisfaction and the patient has no further questions. The patient has been given instructions for the colon cleansing preparation. Patient will need to have random colon biopsies as well as biopsies of his upper esophagus and duodenum and stomach. Prior to these tests being completed the patient will need to have a CAT scan of his abdomen and pelvis with IV and p.o. contrast. Orders Orders: Plan Detail Goals Decrease pain and spasm Barriers RA Coding Level of Care Code Off vis,est,level 3 Diagnoses Pain of upper abdomen R10.10 Abdominal location: upper abdomen, unspecified Diarrhea, unspecified type R19.7 Diarrhea type: unspecified type Weight loss, non-intentional R63.4 05/17/18 1014 <Electronically signed by Justin Aragon MD> Date Justin Aragon MD Cosigner Signature: Date (if applicable) CC: DIDI Amado CBC W/DIFF, AUTOMATED Collected: 05/10/2018 Status: F Source: [place] 11:46 AM [facility] REPOSITORY TYPE CODE TESTS RESULT OUT OF RANGE REFERENCE UNITS LAB L100.1000 4.4-11.0 K/mm3 Normal WBC 4.4 LAB L100.1200 4.6-6.2 M/mm3 Low RBC 4.42 LAB L100.1300 13.0-16.5 g/dl Low HGB 12.7 LAB L100.1400 40-54 % Normal HCT 40.4 LAB L100.1500 80-94 fL Normal MCV 91.4 LAB L100.1600 27.0-32.0 pg Normal MCH 28.7 LAB L100.1700 32-36 g/gl Low MCHC 31.4 LAB L100.1810 11.6-14.6 % Normal RDW CV 14.0 LAB L100.1820 35.1-43.9 fl High RDW SD 45.9 LAB L100.1900 150-450 K/mm3 Normal PLT 277 LAB L100.2000 6.2-12.0 fl Normal MPV 10.6 LAB L100.2100 47-70 % Normal NEUT% 59.0 LAB L100.2200 19-41 % Normal LY% 25.7 LAB L100.2300 0-10 % Normal MONO% 9.4 LAB L100.2400 0-5 % Normal EO% 3.9 LAB L100.2500 0-1 % High BASO% 1.8 LAB L100.2550 0.0-0.9 % Normal IM GRAN % 0.200 Result Comment: IG% - Immature Granulocytes (promyelocytes, myelocytes and metamyelocytes) > 1% indicates that a LEFT SHIFT is Present. LAB L100.2620 2.0-7.7 X10 3/uL Normal Absolute Neut 2.6 LAB L100.2720 0.83-4.51 X10 3/ul Normal Absolute Lymph 1.12 Performed By: #### L100.0100 #### [facility] [address] [place], [address] COMPREHENSIVE METABOLIC Collected: 05/10/2018 Status: F Source: [facility] 11:46 AM [facility] REPOSITORY TYPE CODE TESTS RESULT OUT OF RANGE REFERENCE UNITS LAB L501.0100 74-106 mg/dL Normal GLU 86 Result Comment: Please note revised GLUCOSE reference range effective 2017. LAB L501.1000 7-18 mg/dL Normal BUN 13 LAB L501.1100 0.70-1.30 mg/dL Normal CREAT,SERUM 1.14 Result Comment: The validity of the calculated GFR AND GFRAA in patients over 70 years has not been determined. Clinical correlation is essential. LAB L501.1110 >60 mL/min Normal EST GFR 70 Result Comment: Non- GFR Calc LAB L501.1115 >60 mL/min Normal EST GFR - AA 85 Result Comment: GFR Calc LAB L501.1300 10-20 RATIO Normal BUN/CRE 11.4 LAB L501.1500 6.4-8.2 g/dL T Normal PROT 7.1 LAB L501.1800 3.2-5.0 g/dL Normal ALB 3.9 LAB L501.1950 2.2-4.2 g/dL Normal GLOB 3.2 LAB L501.2000 0.9-2.4 RATIO Normal A/G 1.2 LAB L501.2200 8.5-10.1 mg/dL CA Normal 9.0 LAB L501.4100 15-37 U/L Normal AST 16 LAB L501.4305 45-117 U/L Normal ALK P 73 LAB L501.4405 16-61 U/L Normal ALT 29 LAB L501.4600 0.20-1.00 mg/dL T Normal BILI 0.80 LAB L501.5300 136-145 mmol/L NA Normal 140 LAB L501.5600 3.5-5.1 mmol/L K Normal 3.7 LAB L501.5900 98-107 mmol/L CL Normal 103 LAB L501.6100 21.0-32.0 mmol/L Normal CO2 29.0 LAB L501.6200 5-15 Normal GAP 8 Performed By: #### L500.4050 #### [facility] [address] [place], [place], [address] CHIROPRACTIC REPORT Observed: 04/05/2018 Status: F Source: [place] 2:20 PM [facility] REPOSITORY [facility] [address] [place], [place] [id number] OFFICE VISIT Date of Service: 03/30/18 MR#: [id number] Acct: [id number] Name: SUNNY OLEA Derrick Rep #: [id number] : 1960 Provider: Ivette Lai D.C. Age/Sex: 57/M Location: [facility] Status: Signed Intake Vital Signs04/03/18 Height 5 ft 8 in 04/03/18 Weight: 198 lb 04/03/18 Body Mass Index (BMI) 30.1 Intake Visit Reasons: neck pain Chief Complaint: neck and back pain Is patient in pain?: Yes Allergies gluten Allergy (Verified 09/09/17 14:30) Abd cramps/diarrhea Milk Containing Products Allergy (Verified 09/09/17 14:30) Diarrhea Medications Apremilast [Otezla] 30 mg PO BID 12/22/15 [History Confirmed 09/09/17] Aspirin [Adult Low Dose Aspirin EC] 81 mg PO DAILY 12/22/15 [History Confirmed 09/09/17] Carvedilol [Coreg] 25 mg PO BID 12/22/15 [History Confirmed 09/09/17] Finasteride [Proscar] 5 mg PO DAILY 12/22/15 [History Confirmed 09/09/17] Hydralazine HCl 100 mg PO TID 12/22/15 [History Confirmed 09/09/17] Levothyroxine [Synthroid] 50 mcg PO DAILY 12/22/15 [History Confirmed 09/09/17] Lisinopril [Zestril] 40 mg PO DAILY 12/22/15 [History Confirmed 09/09/17] Loratadine [Claritin] 10 mg PO DAILY PRN 12/22/15 [History Confirmed 09/09/17] Meloxicam [Mobic] 15 mg PO DAILY PRN PRN 12/22/15 [History Confirmed 09/09/17] methotrexate sodium 2.5 mg tablet 2.5 mg PO ONCE 08/19/17 [History Confirmed 09/09/17] multivitamin tablet 1 tab PO QAM 08/19/17 [History Confirmed 09/09/17] tamsulosin 0.4 mg capsule 0.4 mg PO QDAY 08/19/17 [History Confirmed 09/09/17] clonidine HCl 0.1 mg tablet 0.1 mg PO BID tab 09/09/17 [History Confirmed 09/09/17] [facility] Medical History Anemia (Chronic) Bilateral cataracts (Chronic) Seasonal allergies (Chronic) Surgical History S/P cholecystectomy (Inactive) Family History Mother Cancer Hypertension Father Diabetes Social History Smoking Status: Never smoker HPI neck pain : Chief Complaint: neck and low back pain Visit Number: 2 Details: SUNNY OLEA is a 57 year old M who presents with neck and low back pain. He states that recently he has been working more causing him to increase the amount of bending and lifting that he doing. Today the patient rates his pain a 4/10 and describes it as a deep ache that bands across the shoulder blades, Graeme also complains of low back pain. The low back pain is a dull ache that bands across the back with a tight pulling sensation. Bending, lifting, twisting and looking down all cause increased pain, although Graeme denies any numbness, tingling, or radiculopathy. Onset: 03/20/18 Location: neck and low back Duration: intermittent Aggravating or associated factors: bending, lifting and rotation of the neck Relieving factors: chiro Pain Quality: aching, dull, cramping, sharp Exam Musc General: Yes normal posture, normal gait and joint tenderness (C6, T5, T8, L3, L5) Cervical Spine: cervical spasm (upper traps, bilateral), loss of normal cervical lordosis Thoracic/Lumbar Spine: thoracic and lumbar spine normal to inspection, thoraco-lumbar spasm on the right greater than left (Lower trap and rhomboid, QL), lumbar spinal tenderness at L3, at L4 and at L5 Sacroiliac joints: on the right Office Procedures Chiropractic Treatments Procedures Manipulation: 3-4 regions (C6, T5, T8, L3, L5) Assessment AND Plan Problems 1. Segmental and somatic dysfunction of cervical region M99.01 2. Segmental and somatic dysfunction of thoracic region M99.02 3. Segmental and somatic dysfunction of lumbar region M99.03 Plan Follow up PRN. Orders Orders: Plan Detail Goals Decrease pain and spasm Barriers RA Follow Up PRN Coding Level of Care Code No Charge Diagnoses Segmental and somatic dysfunction of cervical region M99.01 Segmental and somatic dysfunction of thoracic region M99.02 Segmental and somatic dysfunction of lumbar region M99.03 Additional Codes Procedures - Manipulation: 3-4 regions (12259) 04/05/18 1420 <Electronically signed by Ivette Lai D.C.> Date Ivette Lai D.C. Cosigner Signature: Date (if applicable) CC: COMPREHENSIVE METABOLIC Collected: 01/25/2018 Status: F Source: [facility] 4:30 PM [facility] REPOSITORY TYPE CODE TESTS RESULT OUT OF RANGE REFERENCE UNITS LAB L501.0100 74-106 mg/dL Normal GLU 85 Result Comment: Please note revised GLUCOSE reference range effective 2017. LAB L501.1000 7-18 mg/dL Normal BUN 17 LAB L501.1100 0.70-1.30 mg/dL Normal CREAT,SERUM 1.04 Result Comment: The validity of the calculated GFR AND GFRAA in patients over 70 years has not been determined. Clinical correlation is essential. LAB L501.1110 >60 mL/min Normal EST GFR 78 Result Comment: Non- GFR Calc LAB L501.1115 >60 mL/min Normal EST GFR - AA 95 Result Comment: GFR Calc LAB L501.1300 10-20 RATIO Normal BUN/CRE 16.3 LAB L501.1500 6.4-8.2 g/dL T Normal PROT 7.2 LAB L501.1800 3.2-5.0 g/dL Normal ALB 4.1 LAB L501.1950 2.2-4.2 g/dL Normal GLOB 3.1 LAB L501.2000 0.9-2.4 RATIO Normal A/G 1.3 LAB L501.2200 8.5-10.1 mg/dL CA Normal 8.6 LAB L501.4100 15-37 U/L Normal AST 24 LAB L501.4305 45-117 U/L Normal ALK P 76 LAB L501.4405 16-61 U/L Normal ALT 30 LAB L501.4600 0.20-1.00 mg/dL T Normal BILI 0.80 LAB L501.5300 136-145 mmol/L NA Normal 141 LAB L501.5600 3.5-5.1 mmol/L K Normal 3.7 LAB L501.5900 98-107 mmol/L CL Normal 106 LAB L501.6100 21.0-32.0 mmol/L Normal CO2 29.0 LAB L501.6200 5-15 Normal GAP 6 Performed By: #### L500.4050 #### [facility] [address] [place], [address] CBC W/DIFF, AUTOMATED Collected: 01/25/2018 Status: F Source: [place] 4:30 PM [facility] REPOSITORY TYPE CODE TESTS RESULT OUT OF RANGE REFERENCE UNITS LAB L100.1000 4.4-11.0 K/mm3 Normal WBC 5.4 LAB L100.1200 4.6-6.2 M/mm3 Low RBC 4.21 LAB L100.1300 13.0-16.5 g/dl Low HGB 12.3 LAB L100.1400 40-54 % Low HCT 38.2 LAB L100.1500 80-94 fL Normal MCV 90.7 LAB L100.1600 27.0-32.0 pg Normal MCH 29.2 LAB L100.1700 32-36 g/gl Normal MCHC 32.2 LAB L100.1810 11.6-14.6 % Normal RDW CV 14.0 LAB L100.1820 35.1-43.9 fl High RDW SD 45.9 LAB L100.1900 150-450 K/mm3 Normal PLT 288 LAB L100.2000 6.2-12.0 fl Normal MPV 10.5 LAB L100.2100 47-70 % Normal NEUT% 58.9 LAB L100.2200 19-41 % Normal LY% 23.7 LAB L100.2300 0-10 % Normal MONO% 9.7 LAB L100.2400 0-5 % Normal EO% 5.0 LAB L100.2500 0-1 % High BASO% 2.1 LAB L100.2550 0.0-0.9 % Normal IM GRAN % 0.600 Result Comment: IG% - Immature Granulocytes (promyelocytes, myelocytes and metamyelocytes) > 1% indicates that a LEFT SHIFT is Present. LAB L100.2620 2.0-7.7 X10 3/uL Normal Absolute Neut 3.2 LAB L100.2720 0.83-4.51 X10 3/ul Normal Absolute Lymph 1.27 Performed By: #### L100.0100 #### [facility] [address] [place], [address] CHIROPRACTIC REPORT Observed: 12/12/2017 Status: F Source: [place] 8:03 AM [facility] REPOSITORY [facility] [address] [place] [id number] OFFICE VISIT Date of Service: 12/06/17 MR#: [id number] Acct: [id number] Name: SUNNY OLEA Rep #: [id number] : 1960 Provider: Ivette Lai D.C. Age/Sex: 57/M Location: [facility] Status: Signed Intake Vital Signs12/06/17 Height 5 ft 8 in 12/06/17 Weight: 200 lb 12/06/17 Body Mass Index (BMI) 30.4 Intake Visit Reasons: ADJUSTMENT Chief Complaint: neck and lower back pain Is patient in pain?: Yes (neck and lower back ) Pain scale (1-10): 2 Allergies gluten Allergy (Verified 09/09/17 14:30) Abd cramps/diarrhea Milk Containing Products Allergy (Verified 09/09/17 14:30) Diarrhea Medications Apremilast [Otezla] 30 mg PO BID 12/22/15 [History Confirmed 09/09/17] Aspirin [Adult Low Dose Aspirin EC] 81 mg PO DAILY 12/22/15 [History Confirmed 09/09/17] Carvedilol [Coreg] 25 mg PO BID 12/22/15 [History Confirmed 09/09/17] Finasteride [Proscar] 5 mg PO DAILY 12/22/15 [History Confirmed 09/09/17] Hydralazine HCl 100 mg PO TID 12/22/15 [History Confirmed 09/09/17] Levothyroxine [Synthroid] 50 mcg PO DAILY 12/22/15 [History Confirmed 09/09/17] Lisinopril [Zestril] 40 mg PO DAILY 12/22/15 [History Confirmed 09/09/17] Loratadine [Claritin] 10 mg PO DAILY PRN 12/22/15 [History Confirmed 09/09/17] Meloxicam [Mobic] 15 mg PO DAILY PRN PRN 12/22/15 [History Confirmed 09/09/17] methotrexate sodium 2.5 mg tablet 2.5 mg PO ONCE 08/19/17 [History Confirmed 09/09/17] multivitamin tablet 1 tab PO QAM 08/19/17 [History Confirmed 09/09/17] tamsulosin 0.4 mg capsule 0.4 mg PO QDAY 08/19/17 [History Confirmed 09/09/17] clonidine HCl 0.1 mg tablet 0.1 mg PO BID tab 09/09/17 [History Confirmed 09/09/17] [facility] Medical History Anemia (Chronic) Bilateral cataracts (Chronic) Seasonal allergies (Chronic) Surgical History S/P cholecystectomy (Inactive) Family History Mother Cancer Hypertension Father Diabetes Social History Smoking Status: Never smoker HPI ADJUSTMENT: Chief Complaint: neck and back pain Visit Number: 3 Details: SUNNY OLEA is a 57 year old M here today for intermittent low back and neck pain. Today, he rates his pain at a 2/10 and describes it as a dull ache. He states that stretching and laying flat helps to relieve the pain and discomfort. Prolonged standing and bending cause increased pain specifically after working a long shift. The pain stays localized to the low back, he denies any numbness or tingling. Location: neck and lower back Duration: intermittent Aggravating or associated factors: standing for prolonged periods, walking, and bending Relieving factors: rest, laying flat, and stretching Treatment: adjustments Pain Quality: aching, cramping, dull Exam Musc General: Yes normal posture, normal gait and joint tenderness (C6, T5, T8, L3, L5) Cervical Spine: cervical spasm (upper traps, bilateral), loss of normal cervical lordosis Thoracic/Lumbar Spine: thoracic and lumbar spine normal to inspection, thoraco-lumbar spasm on the right greater than left (Lower trap and rhomboid, QL), lumbar spinal tenderness at L3, at L4 and at L5 Sacroiliac joints: on the right Office Procedures Chiropractic Treatments Procedures Manipulation: 3-4 regions (C6, T5, T8, L3, L5) Assessment AND Plan Problems 1. Segmental and somatic dysfunction of lumbar region M99.03 2. Segmental and somatic dysfunction of thoracic region M99.02 3. Segmental and somatic dysfunction of cervical region M99.01 4. Rheumatoid arthritis involving right shoulder, unspecified rheumatoid factor presence M06.9 Plan Follow up PRN. Orders Orders: Plan Detail Goals Decrease pain and spasm Barriers RA Follow Up PRN Coding Level of Care Code No Charge Diagnoses Segmental and somatic dysfunction of lumbar region M99.03 Segmental and somatic dysfunction of thoracic region M99.02 Segmental and somatic dysfunction of cervical region M99.01 Rheumatoid arthritis involving right shoulder, unspecified rheumatoid factor presence M06.9 Rheumatoid arthritis location: shoulder Rheumatoid factor presence: unspecified presence Laterality: right Additional Codes Procedures - Manipulation: 3-4 regions (08662) 12/12/17 0803 <Electronically signed by Ivette Lai D.C.> Date Ivette Lai D.C. Cosigner Signature: Date (if applicable) CC: CBC W/DIFF, AUTOMATED Collected: 10/24/2017 Status: F Source: [place] 2:15 PM [facility] REPOSITORY TYPE CODE TESTS RESULT OUT OF RANGE REFERENCE UNITS LAB L100.1000 4.4-11.0 K/mm3 Normal WBC 4.6 LAB L100.1200 4.6-6.2 M/mm3 Low RBC 4.27 LAB L100.1300 13.0-16.5 g/dl Low HGB 12.6 LAB L100.1400 40-54 % Low HCT 38.8 LAB L100.1500 80-94 fL Normal MCV 90.9 LAB L100.1600 27.0-32.0 pg Normal MCH 29.5 LAB L100.1700 32-36 g/gl Normal MCHC 32.5 LAB L100.1810 11.6-14.6 % Normal RDW CV 14.1 LAB L100.1820 35.1-43.9 fl High RDW SD 45.7 LAB L100.1900 150-450 K/mm3 Normal PLT 272 LAB L100.2000 6.2-12.0 fl Normal MPV 10.8 LAB L100.2100 47-70 % Normal NEUT% 52.1 LAB L100.2200 19-41 % Normal LY% 28.4 LAB L100.2300 0-10 % High MONO% 10.8 LAB L100.2400 0-5 % High EO% 5.2 LAB L100.2500 0-1 % High BASO% 2.2 LAB L100.2550 0.0-0.9 % High IM GRAN % 1.300 Result Comment: IG% - Immature Granulocytes (promyelocytes, myelocytes and metamyelocytes) > 1% indicates that a LEFT SHIFT is Present. LAB L100.2620 2.0-7.7 X10 3/uL Normal Absolute Neut 2.4 LAB L100.2720 0.83-4.51 X10 3/ul Normal Absolute Lymph 1.31 Performed By: #### L100.0100 #### [facility] [address] [place], [address] COMPREHENSIVE METABOLIC Collected: 10/24/2017 Status: F Source: [facility] 2:15 PM [facility] REPOSITORY TYPE CODE TESTS RESULT OUT OF RANGE REFERENCE UNITS LAB L501.0100 74-106 mg/dL Normal GLU 77 Result Comment: Please note revised GLUCOSE reference range effective 2017. LAB L501.1000 7-18 mg/dL High BUN 19 LAB L501.1100 0.70-1.30 mg/dL Normal CREAT,SERUM 0.87 Result Comment: The validity of the calculated GFR AND GFRAA in patients over 70 years has not been determined. Clinical correlation is essential. LAB L501.1110 >60 mL/min Normal EST GFR 97 Result Comment: Non- GFR Calc LAB L501.1115 >60 mL/min Normal EST GFR - AA 117 Result Comment: GFR Calc LAB L501.1300 10-20 RATIO High BUN/CRE 21.9 LAB L501.1500 6.4-8.2 g/dL T Normal PROT 7.2 LAB L501.1800 3.2-5.0 g/dL Normal ALB 3.8 LAB L501.1950 2.2-4.2 g/dL Normal GLOB 3.4 LAB L501.2000 0.9-2.4 RATIO Normal A/G 1.1 LAB L501.2200 8.5-10.1 mg/dL CA Normal 8.7 LAB L501.4100 15-37 U/L Low AST 14 LAB L501.4305 45-117 U/L Normal ALK P 80 LAB L501.4405 16-61 U/L Normal ALT 26 Result Comment: Please note revised ALT reference range effective 2017. LAB L501.4600 0.20-1.00 mg/dL Normal T BILI 0.90 LAB L501.5300 136-145 mmol/L Normal NA 139 LAB L501.5600 3.5-5.1 mmol/L Normal K 3.8 LAB L501.5900 98-107 mmol/L Normal CL 103 LAB L501.6100 21.0-32.0 mmol/L Normal CO2 31.0 LAB L501.6200 5-15 Normal GAP 5 Performed By: #### L500.4050 #### [facility] [address] [place], [address] CHIROPRACTIC REPORT Observed: 10/18/2017 Status: F Source: [place] 11:13 AM [facility] REPOSITORY [facility] [address] [place] [address] [id number] OFFICE VISIT Date of Service: 08/10/17 MR#: [id number] Acct: [id number] Name: LEFTYSUNNY Derrick Rep #: [id number] : 1960 Provider: Ivette Lai D.C. Age/Sex: 57/M Location: [facility] [place] Status: Signed Intake Vital Signs08/10/17 Height 5 ft 8 in 08/10/17 Weight: 200 lb 08/10/17 Body Mass Index (BMI) 30.4 Intake Visit Reasons: ADJUSTMENT Chief Complaint: Neck AND low back pain Is patient in pain?: Yes Allergies gluten Allergy (Verified 12/24/15 07:38) Abd cramps/diarrhea Milk Containing Products Allergy (Verified 12/24/15 04:38) Diarrhea Medications Apremilast [Otezla] 30 mg PO BID 12/22/15 [History Confirmed 12/23/15] Aspirin [Adult Low Dose Aspirin EC] 81 mg PO DAILY 12/22/15 [History Confirmed 12/23/15] Carvedilol [Coreg] 25 mg PO BID 12/22/15 [History Confirmed 12/23/15] Finasteride [Proscar] 5 mg PO DAILY 12/22/15 [History Confirmed 12/23/15] Fluticasone 0.05% [Flonase Nasal [place]] 1 spray NASAL DAILY PRN 12/22/15 [History Confirmed 12/23/15] Hydralazine HCl 100 mg PO TID 12/22/15 [History Confirmed 12/23/15] Levothyroxine [Synthroid] 50 mcg PO DAILY 12/22/15 [History Confirmed 12/23/15] Lisinopril [Zestril] 40 mg PO DAILY 12/22/15 [History Confirmed 12/23/15] Loratadine [Claritin] 10 mg PO DAILY PRN 12/22/15 [History Confirmed 12/22/15] Meloxicam [Mobic] 15 mg PO DAILY PRN PRN 12/22/15 [History Confirmed 12/23/15] Prednisone 10 mg PO DAILY PRN PRN 12/22/15 [History Confirmed 12/23/15] Oxycodone HCl/Acetaminophen [Percocet 5-325] 1 - 2 tab PO Q6H PRN PRN #30 tab 12/25/15 [Rx] PFSH Medical History Rheumatoid arthritis (Chronic) Hypertension (Chronic) Obesity (Chronic) Acute cholecystitis (Acute) Social History Smoking Status: Never smoker HPI ADJUSTMENT: Chief Complaint: Neck AND low back pain Visit Number: 2 Details: SUNNY OLEA is a 57 year old M who presents with neck and low back pain. The patient presents with tightness and soreness in the neck and low back with slight radiation and tightness in the upper thighs. Today Graeme rates his pain a 3/10 and describes it as a tight ache that comes and goes; standing and prolonged walking increases the patients pain. Graeme denies any numbness or tingling. Location: Neck AND low back pain Duration: intermittent Aggravating or associated factors: standing, prolonged walking, and bending Relieving factors: rest Pain Quality: aching, cramping Exam Musc General: Yes normal posture, normal gait and joint tenderness (C6, T5, T8, L3, L5) Cervical Spine: cervical spasm (upper traps, bilateral), loss of normal cervical lordosis Thoracic/Lumbar Spine: thoracic and lumbar spine normal to inspection, thoraco-lumbar spasm on the right greater than left (Lower trap and rhomboid, QL), lumbar spinal tenderness at L3, at L4 and at L5 Sacroiliac joints: on the right Office Procedures Chiropractic Treatments Procedures Manipulation: 3-4 regions (C5, T4, T8, L3, L5) Assessment AND Plan Problems 1. Rheumatoid arthritis M06.9 2. Segmental and somatic dysfunction of cervical region M99.01 3. Segmental and somatic dysfunction of thoracic region M99.02 4. Segmental and somatic dysfunction of lumbar region M99.03 Plan Follow up PRN. Patient Instructions Reviewed piriformis stretch to loosen his hips. Orders Orders: Plan Detail Goals Decrease pain and spasm Barriers RA Follow Up PRN 10/18/17 1113 <Electronically signed by Ivette Lai D.C.> Date Ivette Lai D.C. Cosigner Signature: Date (if applicable) CC: ORTHOPEDIC VISIT Observed: 09/12/2017 Status: F Source: [facility]EL REPORT 9:[address] [facility] [address] [place] [address] OFFICE VISIT Date of Service: 09/09/17 MR#: [id number] Acct: [id number] Name: SUNNY OLEA Derrick Rep #: [id number] : 1960 Provider: Jay Villegas DO Age/Sex: 57/M Location: [facility] [place] Status: Signed Intake Intake Visit Reasons: RT SHOULDER Is patient in pain?: Yes Pain scale (1-10): 2 Allergies gluten Allergy (Verified 09/09/17 14:30) Abd cramps/diarrhea Milk Containing Products Allergy (Verified 09/09/17 14:30) Diarrhea Medications Apremilast [Otezla] 30 mg PO BID 12/22/15 [History Confirmed 09/09/17] Aspirin [Adult Low Dose Aspirin EC] 81 mg PO DAILY 12/22/15 [History Confirmed 09/09/17] Carvedilol [Coreg] 25 mg PO BID 12/22/15 [History Confirmed 09/09/17] Finasteride [Proscar] 5 mg PO DAILY 12/22/15 [History Confirmed 09/09/17] Hydralazine HCl 100 mg PO TID 12/22/15 [History Confirmed 09/09/17] Levothyroxine [Synthroid] 50 mcg PO DAILY 12/22/15 [History Confirmed 09/09/17] Lisinopril [Zestril] 40 mg PO DAILY 12/22/15 [History Confirmed 09/09/17] Loratadine [Claritin] 10 mg PO DAILY PRN 12/22/15 [History Confirmed 09/09/17] Meloxicam [Mobic] 15 mg PO DAILY PRN PRN 12/22/15 [History Confirmed 09/09/17] methotrexate sodium 2.5 mg tablet 2.5 mg PO ONCE 08/19/17 [History Confirmed 09/09/17] multivitamin tablet 1 tab PO QAM 08/19/17 [History Confirmed 09/09/17] tamsulosin 0.4 mg capsule 0.4 mg PO QDAY 08/19/17 [History Confirmed 09/09/17] clonidine HCl 0.1 mg tablet 0.1 mg PO BID tab 09/09/17 [History Confirmed 09/09/17] PFSH Medical History Rheumatoid arthritis (Chronic) Hypertension (Chronic) Obesity (Chronic) Acute cholecystitis (Acute) Segmental and somatic dysfunction of lumbar region (Acute) Segmental and somatic dysfunction of thoracic region (Acute) Segmental and somatic dysfunction of cervical region (Acute) Anemia (Chronic) Bilateral cataracts (Chronic) Seasonal allergies (Chronic) Surgical History S/P cholecystectomy (Inactive) Family History Mother Cancer Hypertension Father Diabetes Social History Smoking Status: Never smoker HPI RT SHOULDER: Details: SUNNY OLEA is a 57 year old M here today to discuss MRI of right shoulder. He complains of intermittent lateral and posterior shoulder pain that radiates slightly down his deltoid. No tingling/numbness. He denies clicking, popping or catching. He uses Aspercreme and stretches for pain. ROS Const Reports system reviewed and no additional complaints, except as docu Eyes Reports system reviewed and no additional complaints, except as docu ENT Reports system reviewed and no additional complaints, except as docu Card Reports system reviewed and no additional complaints, except as docu Resp Reports system reviewed and no additional complaints, except as docu GI Reports system reviewed and no additional complaints, except as docu Reports system reviewed and no additional complaints, except as docu Musc Reports joint pain Skin/Breast Reports system reviewed and no additional complaints, except as docu Psych Reports system reviewed and no additional complaints, except as docu Endo Reports system reviewed and no additional complaints, except as docu Adonay/Lymph Reports system reviewed and no additional complaints, except as docu Aller/Immun Reports system reviewed and no additional complaints, except as docu Ortho Exam Right Shoulder Testing: Positive Hawkin's and Neer's SHOULDER: Patient is alert oriented 3 in no distress with eye contact and affect. Patient still has a positive Molina and Neer's otherwise improved. He has mild tender palpation across the biceps. Continues have a O'Briens and crank maneuver but again these appear to be mildly improved as well. Patient's cuff strength in the abducted position is 5 out of 5 is negative belly press negative liftoff. Pain with empty can testing but improved. Overall passive range of motion has improved as well to about 160 for elevation abduction X rotation about 8585. External rotation at the side is about 40. MRI: Evaluated by myself with patient-rotator cuff appears to be normal fluid consistent with subacromial bursitis patient has signal change concerning for high-grade SLAP lesion from roughly the bicipital groove knee posteriorly to about 10:00. He has some thickening to the axillary capsule but no other obvious signs of arthrosis. He has some bone bruising anteriorly that is from a previous injection that he had more contusion but otherwise subscapularis appears to be normal. Left Shoulder Skin/Wound: Yes CDI Contralateral Normal: Yes Testing: Yes AROM-Forward Elevation 0-180, Yes AROM-External Rotation at side 0-60, Yes PROM-External Rotation at side 0-60, Yes AROM-External Rotation at 90 0-60, Yes PROM-Forward Elevation 0-180, Yes PROM-External Rotation at 90 0-60 Internal Rotation: Tip of Scapula Assessment AND Plan Problems 1. Rheumatoid arthritis involving right shoulder, unspecified rheumatoid factor presence M06.9; M06.9; M06.9; M06.9 2. Type 2 superior labrum extending from anterior to posterior (SLAP) lesion of right shoulder, initial encounter S43.431A; S43.431A 3. Impingement syndrome of right shoulder M75.41 Plan Assessment: Right shoulder pain right shoulder impingement right shoulder SLAP lesion history of rheumatoid arthritis. Plan: MRI and physical examination were evaluated myself with the patient. At this point time the patient's overall shoulder appears to be making some improvement. We will continue with his home exercise program and on the reissue the AOS program for him. If the patient were to fail conservative measures need to consider a repeat injection to include intra-articular injection especially in the face of rheumatoid arthritis or we talked about operative intervention. The surgery that I would recommend for the patient this point time would be a diagnostic shoulder scope evaluation of the capsule labral complex and biceps insertion site and whether not a labral tear would be appropriate for this patient or if this is just typical aging phenomenon to the superior labral tissue of the shoulder. If the patient were to show significant biceps issue and instability the biceps root and I talked to patient about a biceps tenotomy versus tenodesis and a subsequent subacromial bursectomy/decompression. For now continue physical therapy see the patient back 6 weeks as needed. The patient fails conservative measures will consider operative intervention at that time. Patient agrees with plan. Plan Detail Goals Decrease pain and spasm Barriers RA 09/12/17 0928 <Electronically signed by Jay Villegas DO> Date Jay Villegas DO Cosigner Signature: Date (if applicable) CC: UPPER EXT JOINT Observed: 09/02/2017 Status: F Source: [facility]HAEL ONLY(ROUTINE) 12:00 AM [facility] REPOSITORY [facility] Imaging Services [address] [place] [address] Upper Ext Joint Only(Routine) MR#: [id number] Acct: [id number] Name: SUNNY OLEA Rep #: [id number] : 1960 M 57 From: Willis Jaffe MD PCP: RENETTA AMADO Status: REG CLI Study: Upper Ext Joint Only(Routine) Date of Exam: 09/02/17 Exam# [id number] Ordering Dr: Jay Villegas DO STUDY: MRI RIGHT SHOULDER REASON FOR EXAM: Male, 57 years old. Right shoulder pain. TECHNIQUE: Standardized fat and water weighted pulse sequences were obtained in all 3 orthogonal planes. COMPARISON: X-ray August 24, 2017 FINDINGS: There is supraspinatus tendinosis with tendon thickening, but without a demonstrated tendon tear. Normal infraspinatus tendon. There is subscapularis tendinosis with tendon thickening, but without a demonstrated tendon tear. Normal teres minor tendon. Normal supraspinatus muscle. Normal infraspinatus muscle. Normal subscapularis muscle. Normal teres minor muscle. There is a small volume joint effusion of the glenohumeral joint. Normal humeral head and visualized proximal humerus. Normal biceps labral complex. Normal intracapsular long biceps tendon. There is tear of the superior labrum adjacent to the biceps anchor, series 4 images 08/24 and . There is tear of the posterior labrum with 0.3 cm perilabral cyst, series 6 images 06/26 and 07/27. Normal capsulo- ligamentous complex. Normal rotator interval. 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 There is a Type II morphology (curved acromion), with a neutral orientation. There is minimal fluid distention of the subacromial bursa, consistent with mild subacromial-subdeltoid bursitis. Normal visualized coracohumeral and coracoacromial ligaments. Normal quadrilateral space. Normal axillary space. Normal deltoid muscle. Normal trapezius muscle. MRI/Upper Ext Joint Only(Routine) IMPRESSION: Tears of the superior and posterior glenoid labrum. No rotator cuff tear. Tendinosis of the supraspinatus and subscapularis. Acromioclavicular spurring with impingement. Electronically Signed: Willis Jaffe MD at 15:59 EST , Service support , CC: RENETTA AMADO; Jay Villegas DO Marketing Specialist: Signed ORTHOPEDIC VISIT Observed: 08/25/2017 Status: F Source: [place] REPORT 10:[address] [facility] Orth[facility] [address] [place] [address] [place] [address] OFFICE VISIT Date of Service: 08/24/17 MR#: [id number] Acct: [id number] Name: SUNNY OLEA Rep #: [id number] : 1960 Provider: Jay Villegas DO Age/Sex: 57/M [place] [facility] [place] [place]: Signed Intake Vital Signs08/24/17 Height 5 ft 8 in 08/24/17 Weight: 200 lb 08/24/17 Body Mass Index (BMI) 30.4 08/24/17 Blood Pressure 161/88 08/24/17 Blood Pressure Location Lt popliteal Intake Visit Reasons: RIGHT SHOULDER Is patient in pain?: Yes Pain scale (1-10): 3 Allergies gluten Allergy (Verified 08/24/17 10:32) Abd cramps/diarrhea Milk Containing Products Allergy (Verified 08/24/17 10:32) Diarrhea Medications Apremilast [Otezla] 30 mg PO BID 12/22/15 [History Confirmed 08/24/17] Aspirin [Adult Low Dose Aspirin EC] 81 mg PO DAILY 12/22/15 [History Confirmed 08/24/17] Carvedilol [Coreg] 25 mg PO BID 12/22/15 [History Confirmed 08/24/17] Finasteride [Proscar] 5 mg PO DAILY 12/22/15 [History Confirmed 08/24/17] Hydralazine HCl 100 mg PO TID 12/22/15 [History Confirmed 08/24/17] Levothyroxine [Synthroid] 50 mcg PO DAILY 12/22/15 [History Confirmed 08/24/17] Lisinopril [Zestril] 40 mg PO DAILY 12/22/15 [History Confirmed 08/24/17] Loratadine [Claritin] 10 mg PO DAILY PRN 12/22/15 [History Confirmed 08/24/17] Meloxicam [Mobic] 15 mg PO DAILY PRN PRN 12/22/15 [History Confirmed 08/24/17] clonidine HCl 0.1 mg tablet 0.1 mg PO ONCE tab 08/19/17 [History Confirmed 08/24/17] methotrexate sodium 2.5 mg tablet 2.5 mg PO ONCE 08/19/17 [History Confirmed 08/24/17] multivitamin tablet 1 tab PO QAM 08/19/17 [History Confirmed 08/24/17] tamsulosin 0.4 mg capsule 0.4 mg PO QDAY 08/19/17 [History Confirmed 08/24/17] PFSH Medical History Rheumatoid arthritis (Chronic) Hypertension (Chronic) Obesity (Chronic) Acute cholecystitis (Acute) Segmental and somatic dysfunction of lumbar region (Acute) Segmental and somatic dysfunction of thoracic region (Acute) Segmental and somatic dysfunction of cervical region (Acute) Anemia (Chronic) Bilateral cataracts (Chronic) Seasonal allergies (Chronic) Surgical History S/P cholecystectomy (Inactive) Family History Mother Cancer Hypertension Father Diabetes Social History Smoking Status: Never smoker HPI RIGHT SHOULDER: Details: SUNNY OLEA is a 57 year old M here today for right shoulder pain, he was referred by Dr Varela who has treated him with injections for years but wants him to be evaluated by ortho for RTC tear. He has full rom, only pain in FE at the end range. He has no done any PT recently. Denies numbness, tingling or other associated symptoms. He also states that this morning his eye doctor wanted his BP checked and monitored because it's running high. ROS Const Reports system reviewed and no additional complaints, except as docu Eyes Reports system reviewed and no additional complaints, except as docu ENT Reports system reviewed and no additional complaints, except as docu Card Reports system reviewed and no additional complaints, except as docu Resp Reports system reviewed and no additional complaints, except as docu GI Reports system reviewed and no additional complaints, except as docu Musc Reports joint pain Skin/Breast Reports system reviewed and no additional complaints, except as docu Neuro Yes system reviewed and no additional complaints, except as docu Psych Reports system reviewed and no additional complaints, except as docu Endo Reports system reviewed and no additional complaints, except as docu Ortho Exam Right Shoulder Skin/Wound: Yes CDI Contralateral Normal: Yes Testing: Positive AROM-External Rotation at 90 0-60, PROM- External Rotation at side 0-60, PROM-Forward Elevation 0-180, PROM-External Rotation at 90 0-60, AROM-External Rotation at side 0-60, AROM-Forward Elevation 0-180, Hawkin's, Neer's, TTP Biceps and Yergason's Internal Rotation: Tip of Scapula SHOULDER: Alert and oriented 3 in no acute distress. From an eye contact affect. Otherwise intact from C5-T2 distributions. He has +2 pulses. He has no adenopathy. Right shoulder examination shows a positive Molina and Neer's. Patient has tenderness palpation across the posterior aspect of the shoulder with load shift. Patient has weakness with external rotation at the side of the abducted position of probably 4/5 which causes pain. Supraspinatus otherwise appears relatively normal though mildly painful. Patient has a negative belly press. Mild tender to palpation across the biceps with a positive speeds. He has no pain across the AC joint and negative crossarm. Range of motion otherwise remained supple. Left Shoulder Skin/Wound: Yes CDI Contralateral Normal: Yes Testing: Yes AROM-Forward Elevation 0-180, Yes AROM-External Rotation at side 0-60, Yes PROM-External Rotation at side 0-60, Yes AROM-External Rotation at 90 0-60, Yes PROM-Forward Elevation 0-180, Yes PROM-External Rotation at 90 0-60 Internal Rotation: Tip of Scapula Assessment AND Plan Problems 1. 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 Chronic right shoulder pain M25.511; M25.511; G89.29; G89.29 3. Impingement syndrome of right shoulder M75.41 Plan Assessment: Right shoulder rotator cuff tear, right shoulder pain, right shoulder impingement. Mild biceps tendinitis. X-rays: Evaluated by myself with the patient. No obvious bony abnormalities appreciated. Acromiohumeral distance is otherwise maintained. Glenohumeral joint appears to have limited degenerative change although the AP shows perhaps some cystic changes within the glenoid itself. Plan: At this point time the patient has failed conservative measures to include NSAIDs activity modifications physical therapy and home exercise program that was provided by an outside provider. Patient's had multiple injections into the shoulder. He has a history of rheumatoid arthritis. My recommendation is for an MRI to evaluate the glenohumeral joint and determine whether not there is more degenerative change and appreciated on the plain radiograph. Also of concern the patient may have a posterior superior tear pattern of his rotator cuff and recommend MRI for evaluation of rotator cuff pathology. Patient was reinstructed on physical therapy program to include AAOS shoulder regimen. Patient will follow-up after MRI completed. A major issues return. Orders Orders: Plan Detail Goals Decrease pain and spasm Barriers RA 08/25/17 1005 <Electronically signed by Jay Villegas DO> Date Jay Villegas DO Cosigner Signature: Date (if applicable) CC: SHOULDER MIN 2 VIEWS Observed: 08/24/2017 Status: F Source: [place] 10:27 AM [facility] REPOSITORY [facility] Imaging Services [address] [place] [id number] Shoulder min 2 Views MR#: [id number] Acct: [id number] Name: SUNNY OLEA Derrick Rep #: [id number] : 1960 M 57 From: Theodore Noel MD PCP: RENETTA AMADO Status: REG CLI Study: Shoulder min 2 Views Date of Exam: 08/24/17 Exam# [id number] Ordering Dr: Jay Villegas DO STUDY: X-RAY - RIGHT SHOULDER REASON FOR EXAM: Male, 57 years old. Pain TECHNIQUE: 3 view(s) of the shoulder. COMPARISON: None. FINDINGS: Normal glenohumeral articulation. Normal acromioclavicular joint. Normal acromion. Normal humeral head and visualized proximal humerus. The soft tissue structures are unremarkable. Normal visualized pulmonary apex. RAD/Shoulder min 2 Views IMPRESSION: Normal x-ray examination of the shoulder. Electronically Signed: Theodore Noel MD at 22:16 EST Tel , Service support , CC: RENETTA AMADO; Jay Villegas DO Marketing Specialist: Signed ALLERGIES ALLERGIES DATE TYPE / CODE NAME / CODE REACTION SEVERITY SOURCE 06/05/2018 Drug Milk Containing Diarrhea Unknown [place] Allergy/416 Products/[id number] Community 821467([place] [address](RXNORM) [facility] ED CT) Repository 06/05/2018 Drug gluten/[id number] Abd Unknown [place] Allergy/416 (RXNORM) cramps/diarrhea Community 417965([facility] ED CT) Repository 06/05/2018 Drug diltiazem/[id number] Unknown Unknown [place] Allergy/416 514(RXNORM) [facility] 824428([facility] ED CT) Repository ENCOUNTERS ENCOUNTERS ADMIT/DISCHARGE ACCOUNT ADMITTING ENCOUNTER LOCATION SOURCE NUMBER CLASS 08/04/2018 [id number] Ambulatory [place] [facility] 1 [facility] ing:MTLAB Repository 07/11/2018 [id number] Ambulatory [place] 4 [facility] ing:MTLAB Repository 06/05/2018/ [id number] Ambulatory BMSBuilding:B [place] 8 4 [facility] Repository 05/29/2018/ [id number] Ambulatory Michael [place] 8 9 [facility] ing:EN Repository 05/29/2018/ [id number] Ambulatory BMSBuilding:B [place] 8 9 MS.[facility] Repository 05/23/2018 [id number] Ambulatory [place] 5 [facility] ing:CT Repository 05/17/2018/ [id number] Ambulatory BMSBuilding:B [place] 8 3 [facility] Repository 05/10/2018 [id number] Ambulatory [place] 9 [facility] ing:LAB Repository 03/30/2018/ [id number] Ambulatory BMSBuilding:B [place] 8 2 [facility] Repository 01/25/2018 [id number] Ambulatory [place] 1 [facility] ing:LAB Repository 12/06/2017/ [id number] Ambulatory BMSBuilding:B [place] 8 5 [facility] Repository 10/24/2017 [id number] Ambulatory [place] 4 [facility] ing:LAB Repository 09/09/2017/ [id number] Ambulatory BMSBuilding:B [place] 8 0 [facility] Repository 09/02/2017 [id number] Ambulatory [place] 2 [facility] ing:MRI Repository 08/24/2017 [id number] Ambulatory Michael Michael 3 [facility] ing:HPRAD Repository 08/24/2017/ [id number] Ambulatory BMSBuilding:B [place] 7 8 [facility] Repository 08/10/2017/ [id number] Ambulatory BMSBuilding:B [place] 7 0 [facility] Repository PAYERS PAYERS ENCOUNTER GUARANTOR PAYER SUBSCRIBER SOURCE 08/04/2018 SUNNY Meza Primary MERARI A [place] [id number] Insurance:ANTHEMPolic SPEICHERDOB: [facility] Number: [id number] [place] [id number] Repository 43571Luw: 330) Date:4801-64-55FX [phone] () [place]OQAVZLC, [place] [address]SG: 08/04/2018 Secondary NOT GIVENUNK [place] Insurance:SELF PAY [facility] Number: Effective Repository Date:2018-08-04 07/11/2018 SUNNY Meza Primary MERARI A [place] [id number] Insurance:ANTHEMPolic SPEICHERDOB: [facility] y Number: [id number] [place] [id number] Repository 39[address]Yia: (330) Date:5729-54-40SV [phone] () [id number] [place] [address] 58[address]PX: 07/11/2018 Secondary NOT GIVENUNK [place] Insurance:SELF PAY [facility] Number: Effective Repository Date:2018-07-11 06/05/2018 SUNNY Meza Primary MERARI A Michael [id number] Insurance:ANTHEMPolic SPEICHERDOB: [facility] y Number: [id number] [place] [id number] Repository 100[address]Ynh: (330) Date:2750-06-19HL [phone] () [id number] [place] [address] 95348UU: 06/05/2018 Secondary NOT GIVENUNK [place] Insurance:SELF PAY [facility] Number: Effective Repository Date:2018-06-05 05/29/2018 SUNNY Meza Primary MERARI A [place] [id number] Insurance:ANTHEMPolic SPEICHERDOB: [facility] y Number: [id number] [place] [id number] Repository 946[address]Vzm: (330) Date:5332-22-82NA [phone] () [id number] [place] [address]14[address]OW: 05/29/2018 Secondary NOT GIVENUNK [place] Insurance:SELF PAY [facility] Number: Effective Repository Date:2018-05-17 05/29/2018 SUNNY Meza Primary MERARI A [place] [id number] Insurance:ANTHEMPolic SPEICHERDOB: [facility] y Number: [id number] [place] [id number] Repository 183[address]Nuc: (330) Date:4192-00-31WI [phone] () [address] [place] [address] [place] [address]ZF: 05/29/2018 Secondary NOT GIVENUNK [place] Insurance:SELF PAY [facility] Number: Effective Repository Date:2018-05-29 05/23/2018 SUNNY Meza Primary MERARI A [place] [id number] Insurance:ANTHEMPolic SPEICHERDOB: [facility] y Number: [id number] [place] [id number] Repository [address]Pab: (330) Date:4092-32-87SI [phone] () [id number] [place] [address] 300[address]YU: 05/23/2018 Secondary NOT GIVENUNK [place] Insurance:SELF PAY [facility] Number: Effective Repository Date:2018-05-17 05/17/2018 SUNNY Meza Primary MERARI A [place] [id number] Insurance:ANTHEMPolic SPEICHERDOB: [facility] y Number: [id number] [place] [id number] Repository 24[address]Lxe: (330) Date:9791-97-41GP [phone] () [address] [place] [address] [place] [address]FH: 05/17/2018 Secondary NOT GIVENUNK [place] Insurance:SELF PAY [facility] Number: Effective Repository Date:2018-05-17 05/10/2018 SUNNY Meza Primary MERARI A [place] [id number] Insurance:ANTHEMPolic SPEICHERDOB: [facility] y Number: [id number] [place] [id number] Repository 20[address]Uqs: (330) Date:9604-35-67GO [phone] () [address] [place] [address] [place] [address]ET: 05/10/2018 Secondary NOT GIVENUNK [place] Insurance:SELF PAY [facility] Number: Effective Repository Date:2018-05-10 03/30/2018 SUNNY Meza Primary MERARI A [place] [id number] Insurance:ANTHEMPolic SPEICHERDOB: [facility] y Number: [id number] [place] [id number] Repository 83[address]Xxw: (330) Date:0763-63-42GO [phone] () [id number], [place] [address]DF: 03/30/2018 Secondary NOT GIVENUNK [place] Insurance:SELF PAY [facility] Number: Effective Repository Date:2018-03-30 01/25/2018 SUNNY P Primary SUNNY P [place] [id number] Insurance:ANTHEMPolic SPEICHERDOB: [facility] y Number: [id number] [place] [id number] Repository [address]84[address]Gsl: (330) vijay Date:1854-26-36AX [phone] () [address]FWM, [place] [address]VC: 01/25/2018 Secondary NOT GIVENUNK [place] Insurance:SELF PAY [facility] Number: Effective Repository Date:2018-01-25 12/06/2017 SUNNY P Primary SUNNY P [place] [id number] Insurance:ANTHEMPolic SPEICHERDOB: [facility] y Number: [id number] [place], [place] [id number] Repository 307[address]Fre: (330) vijay Date:4705-63-83SS [phone] () [address]SMQFFCL, [place] [address]BG: 12/06/2017 Secondary NOT GIVENUNK [place] Insurance:SELF PAY [facility] Number: Effective Repository Date:2017-12-06 10/24/2017 SUNNY P Primary SUNNY P [place] [id number] Insurance:ANTHEMPolic SPEICHERDOB: [facility] y Number: [id number] [place] [id number] Repository [address]Epm: (330) vijay Date:3709-50-68ZY [phone] () [address]CZRKFUC, [place] [address]TM: 10/24/2017 Secondary NOT GIVENUNK [place] Insurance:SELF PAY [facility] Number: Effective Repository Date:2017-10-24 09/09/2017 SUNNY Meza Primary MERARI [place] [id number] Insurance:ANTHEMPolic SPEICHERDOB: [facility] y Number: [id number] [place], [place] [id number] Repository 933[address]Wir: (330) Date:2524-33-12TQ [phone] () [id number] [place] [address]SA: 09/09/2017 Secondary NOT GIVENUNK [place] Insurance:SELF PAY [facility] Number: Effective Repository Date:2017-09-06 09/02/2017 SUNNY Meza Primary MERARI [place] [id number] Insurance:ANTHEMPolic SPEICHERDOB: [facility] y Number: [id number] [place] [id number] Repository [address]Dhm: (330) Date:5105-67-35KL [phone] () [id number], [place] [address]TY: 09/02/2017 Secondary NOT GIVENUNK [place] Insurance:SELF PAY [facility] Number: Effective Repository Date:2017-08-26 08/24/2017 SUNNY Meza Primary MERARI [place] [id number] Insurance:ANTHEMPolic SPEICHERDOB: [facility] y Number: [id number] [place], [place] [id number] Repository 86[address]Emk: (330) Date:6025-24-79HK [phone] () 059291JBEHKLY, [place] [address]WN: 08/24/2017 Secondary NOT GIVENUNK [place] Insurance:SELF PAY [facility] Number: Effective Repository Date:2017-08-24 08/24/2017 SUNNY Meza Primary MERARI [place] [id number] Insurance:ANTHEMPolic SPEICHERDOB: [facility] y Number: [id number] [place] [id number] Repository 28[address]Ist: (330) Date:6624-49-78DC [phone] () [id number] [place] [address]LS: 08/24/2017 Secondary NOT GIVENUNK [place] Insurance:SELF PAY [facility] Number: Effective Repository Date:2017-08-24 08/10/2017 SUNNY Meza Primary MERARI [place] [id number] Insurance:VERNA UMANAB: Community [place] [employer] PPOPolicy [id number] [place], [place] Number: Repository 411[address]Dyb: 330 [id number] [phone] () Date:2975-71-08QT [address]FIZHILC, [place] [address]VV: 08/10/2017 Secondary NOT GIVENUNK [place] Insurance:SELF PAY [facility] Number: Effective Repository Date:2017-08-10
== END ==
PROVIDERS: Family Provider Family Medicine; PCP Family Medicine; Referring Provider Internal Medicine Rheumatology; Visit Provider Internal Medicine Rheumatology
DX: L40.59 Other psoriatic arthropathy (principal); Z79.899 Other long term (current) drug therapy; L40.8 Other psoriasis; M18.11 Unilateral primary osteoarthritis of first carpometacarpal joint, right hand; M21.40 Flat foot [pes planus] (acquired), unspecified foot; I10 Essential (primary) hypertension; E03.9 Hypothyroidism, unspecified; E78.5 Hyperlipidemia, unspecified; M51.37 Other intervertebral disc degeneration, lumbosacral region
CPT/HCPCS: 36415; 80053; 85025

== ENCOUNTER → 2018-10-31 17:18 | Outpatient (CLI) | payer BC, SELFPAY ==
[2018-10-31 17:50] LABS: Absolute Neutrophil Count 2.9 X10^3/uL (2.0-7.7); Basophil# 0.08 X10^3/uL; Basophil% 1.6 % (0-1); Eosinophil# 0.24 X10^3/uL; Eosinophils% 4.8 % (0-5); Hematocrit 37.5 % (40-54); Hemoglobin 12.2 g/dl (13.0-16.5); Mean Corp Hgb Conc 32.5 g/gl (32-36); Mean Corpuscular Hgb 29.8 pg (27.0-32.0); Mean Corpuscular Volume 91.7 fL (80-94); Mean Platelet Vol. 9.8 fl (6.2-12.0); Monocyte# 0.55 X10^3/uL; Neutrophil # 2.89 X10^3/uL (2.7-7.7); Platelet Count 224 K/mm3 (150-450); RBC Distribution Width CV 13.7 % (11.6-14.6); Red Blood Count 4.09 M/mm3 (4.6-6.2)
[2018-10-31 17:56] LABS: POSITIVE COUNT NO; POSITIVE DIFFERENTIAL NO; POSITIVE MORPHOLOGY NO
[2018-10-31 18:29] LABS: ALB/GLOB Ratio 1.3 RATIO (0.9-2.4); AST(SGOT) 21 U/L (15-37); Alanine Aminotransfer ALT/SGPT 40 U/L (16-61); Alkaline Phosphatase 91 U/L (45-117); Anion Gap 10 (5-15); BUN 18 mg/dL (7-18); BUN/Creat Ratio 17.8 RATIO (10-20); Calcium,Total 8.6 mg/dL (8.5-10.1); Chloride 104 mmol/L (98-107); Creatinine, Serum 1.01 mg/dL (0.70-1.30); EST Glomerular Filtration Rate 81 mL/min (>60); Est Glom Filt Rate - Afr Amer 98 mL/min (>60); Glucose 99 mg/dL (74-106); Potassium 3.6 mmol/L (3.5-5.1); Sodium Level 142 mmol/L (136-145)
== END ==
PROVIDERS: Family Provider Family Medicine; PCP Family Medicine; Referring Provider Internal Medicine Rheumatology; Visit Provider Internal Medicine Rheumatology
DX: L40.59 Other psoriatic arthropathy (principal); L40.8 Other psoriasis; M18.11 Unilateral primary osteoarthritis of first carpometacarpal joint, right hand; M21.40 Flat foot [pes planus] (acquired), unspecified foot; I10 Essential (primary) hypertension; E03.9 Hypothyroidism, unspecified; E78.5 Hyperlipidemia, unspecified; M51.37 Other intervertebral disc degeneration, lumbosacral region; Z79.899 Other long term (current) drug therapy
CPT/HCPCS: 36415; 80053; 85025

== ENCOUNTER → 2019-01-24 | Outpatient (CLI) | payer BC, SELFPAY ==
[2019-01-24 17:38] LABS: Absolute Lymphocyte Count 1.31 X10^3/ul (0.83-4.51); Absolute Neutrophil Count 3.7 X10^3/uL (2.0-7.7); Basophil# 0.06 X10^3/uL; Eosinophil# 0.23 X10^3/uL; Eosinophils% 3.9 % (0-5); Hematocrit 38.2 % (40-54); Hemoglobin 12.4 g/dl (13.0-16.5); Lymphocyte # 1.31 X10^3/ul (4.0); Lymphocyte % 22.2 % (19-41); Mean Corp Hgb Conc 32.5 g/gl (32-36); Mean Corpuscular Hgb 29.2 pg (27.0-32.0); Mean Corpuscular Volume 89.9 fL (80-94); Mean Platelet Vol. 10.1 fl (6.2-12.0); Monocyte# 0.57 X10^3/uL; Monocyte% 9.7 % (0-10); Neutrophil % 62.7 % (47-70); Platelet Count 261 K/mm3 (150-450); RBC Distribution Width CV 14.6 % (11.6-14.6); RBC Distribution Width SD 47.5 fl (35.1-43.9); Red Blood Count 4.25 M/mm3 (4.6-6.2); White Blood Count 5.9 K/mm3 (4.4-11.0)
[2019-01-24 17:44] LABS: POSITIVE COUNT NO; POSITIVE DIFFERENTIAL NO; POSITIVE MORPHOLOGY NO
[2019-01-24 18:01] LABS: ALB/GLOB Ratio 1.2 RATIO (0.9-2.4); AST(SGOT) 21 U/L (15-37); Alanine Aminotransfer ALT/SGPT 33 U/L (16-61); Alkaline Phosphatase 80 U/L (45-117); Anion Gap 6 (5-15); BUN 16 mg/dL (7-18); BUN/Creat Ratio 15.7 RATIO (10-20); Calcium,Total 8.7 mg/dL (8.5-10.1); Chloride 107 mmol/L (98-107); Creatinine, Serum 1.02 mg/dL (0.70-1.30); EST Glomerular Filtration Rate 80 mL/min (>60); Est Glom Filt Rate - Afr Amer 96 mL/min (>60); Globulin 3.4 g/dL (2.2-4.2); Glucose 86 mg/dL (74-106); Potassium 3.7 mmol/L (3.5-5.1); Protein, Total 7.4 g/dL (6.4-8.2); Sodium Level 141 mmol/L (136-145)
== END | disposition home or self-care (01) ==
LOC: LAB 17:19
PROVIDERS: Family Provider Family Medicine; PCP Family Medicine; Referring Provider Internal Medicine Rheumatology; Visit Provider Internal Medicine Rheumatology
DX: L40.59 Other psoriatic arthropathy (principal); Z79.899 Other long term (current) drug therapy; L40.8 Other psoriasis; M18.11 Unilateral primary osteoarthritis of first carpometacarpal joint, right hand; M21.40 Flat foot [pes planus] (acquired), unspecified foot; I10 Essential (primary) hypertension; E03.9 Hypothyroidism, unspecified; E78.5 Hyperlipidemia, unspecified; M51.37 Other intervertebral disc degeneration, lumbosacral region
CPT/HCPCS: 36415; 80053; 85025

== ENCOUNTER → 2019-04-18 | Outpatient (CLI) | payer BC, SELFPAY ==
[2019-04-18 18:29] LABS: Absolute Lymphocyte Count 1.28 X10^3/uL (0.83-4.51); Absolute Neutrophil Count 3.5 X10^3/uL (2.0-7.7); Basophil# 0.07 X10^3/uL; Basophil% 1.2 % (0-1); Eosinophil# 0.23 X10^3/uL; Hemoglobin 12.8 g/dL (13.0-16.5); Lymphocyte # 1.28 X10^3/ul (4.0); Lymphocyte % 22.3 % (19-41); Mean Corp Hgb Conc 32.8 g/dL (32-36); Mean Corpuscular Hgb 29.7 pg (27.0-32.0); Mean Corpuscular Volume 90.5 fL (80-94); Mean Platelet Vol. 10.1 fl (6.2-12.0); Monocyte# 0.59 X10^3/uL; Monocyte% 10.3 % (0-10); NRBC Flagged by Analyzer 0 % (0-5); Neutrophil # 3.52 X10^3/uL (2.7-7.7); Neutrophil % 61.3 % (47-70); Platelet Count 262 K/mm3 (150-450); RBC Distribution Width CV 13.9 % (11.6-14.6); RBC Distribution Width SD 45.6 fl (35.1-43.9); Red Blood Count 4.31 M/mm3 (4.6-6.2); White Blood Count 5.7 K/mm3 (4.4-11.0)
[2019-04-18 18:49] LABS: Anion Gap 9 (5-15); BUN 18 mg/dL (7-18); BUN/Creat Ratio 17.8 RATIO (10-20); Calcium,Total 8.8 mg/dL (8.5-10.1); Chloride 106 mmol/L (98-107); Creatinine, Serum 1.01 mg/dL (0.70-1.30); EST Glomerular Filtration Rate 80 mL/min (>60); Est Glom Filt Rate - Afr Amer 97 mL/min (>60); Glucose 94 mg/dL (74-106); Potassium 3.6 mmol/L (3.5-5.1); Sodium Level 143 mmol/L (136-145)
== END | disposition home or self-care (01) ==
PROVIDERS: Family Provider Family Medicine; PCP Family Medicine; Referring Provider Internal Medicine Rheumatology; Visit Provider Internal Medicine Rheumatology
DX: L40.59 Other psoriatic arthropathy (principal); Z79.899 Other long term (current) drug therapy; L40.8 Other psoriasis; M18.11 Unilateral primary osteoarthritis of first carpometacarpal joint, right hand; M21.40 Flat foot [pes planus] (acquired), unspecified foot; I10 Essential (primary) hypertension; E03.9 Hypothyroidism, unspecified; E78.5 Hyperlipidemia, unspecified; M51.37 Other intervertebral disc degeneration, lumbosacral region
CPT/HCPCS: 36415; 80048; 85025

== ENCOUNTER → 2019-04-24 | Outpatient (CLI) | payer BC, SELFPAY ==
[2019-04-24 17:58] LABS: AST(SGOT) 18 U/L (15-37); Alanine Aminotransfer ALT/SGPT 30 U/L (16-61); Albumin, Serum 3.9 g/dL (3.2-5.0); Alkaline Phosphatase 82 U/L (45-117); Bilirubin, Direct 0.19 mg/dL (0.00-0.30); Globulin 3.2 g/dL (2.2-4.2); Protein, Total 7.1 g/dL (6.4-8.2)
== END | disposition home or self-care (01) ==
LOC: MTLAB 16:35
PROVIDERS: Family Provider Family Medicine; PCP Family Medicine; Referring Provider Internal Medicine Rheumatology; Visit Provider Internal Medicine Rheumatology
DX: L40.59 Other psoriatic arthropathy (principal); Z79.899 Other long term (current) drug therapy; L40.8 Other psoriasis; M18.11 Unilateral primary osteoarthritis of first carpometacarpal joint, right hand; M21.40 Flat foot [pes planus] (acquired), unspecified foot; I10 Essential (primary) hypertension; E03.9 Hypothyroidism, unspecified; E78.5 Hyperlipidemia, unspecified; M51.37 Other intervertebral disc degeneration, lumbosacral region
CPT/HCPCS: 36415; 80076

== ENCOUNTER → 2019-06-23 09:35 | Outpatient (CLI) | payer BC, SELFPAY ==
[2019-06-23 11:13] LABS: Hemoglobin A1c 5.4 % (4.2-6.3)
[2019-06-23 11:33] LABS: Cholesterol 139 mg/dL (200); High Density Lipoprotein 34 mg/dL; PSA,Total - Annual Screen 1.47 ng/mL (0.00-4.00); Thyroid Stim Hormone (TSH) 2.58 uIU/mL (0.358-3.74); Triglycerides 137 mg/dL; Very Low Density Lipoprotein 27 mg/dL (5-40)
== END ==
PROVIDERS: Family Provider Family Medicine; PCP Family Medicine; Referring Provider Family Medicine; Visit Provider Family Medicine
DX: E78.1 Pure hyperglyceridemia (principal); Z12.5 Encounter for screening for malignant neoplasm of prostate; R73.03 Prediabetes; E03.9 Hypothyroidism, unspecified
CPT/HCPCS: 36415; 80061; 83036; 84153; 84443; G0103

== ENCOUNTER → 2019-07-14 10:36 | Outpatient (CLI) | payer BC, SELFPAY ==
[2019-07-14 11:03] LABS: Absolute Lymphocyte Count 1.11 X10^3/uL (0.83-4.51); Absolute Neutrophil Count 3.5 X10^3/uL (2.0-7.7); Basophil# 0.06 X10^3/uL; Basophil% 1.1 % (0-1); Eosinophil# 0.22 X10^3/uL; Eosinophils% 4.1 % (0-5); Hematocrit 39.2 % (40-54); Hemoglobin 12.7 g/dL (13.0-16.5); Lymphocyte # 1.11 X10^3/ul (4.0); Lymphocyte % 20.4 % (19-41); Mean Corp Hgb Conc 32.4 g/dL (32-36); Mean Corpuscular Hgb 29.3 pg (27.0-32.0); Mean Corpuscular Volume 90.3 fL (80-94); Mean Platelet Vol. 10.4 fl (6.2-12.0); Monocyte# 0.55 X10^3/uL; Monocyte% 10.1 % (0-10); NRBC Flagged by Analyzer 0 % (0-5); Neutrophil # 3.45 X10^3/uL (2.7-7.7); Neutrophil % 63.6 % (47-70); Platelet Count 270 K/mm3 (150-450); RBC Distribution Width CV 14.6 % (11.6-14.6); RBC Distribution Width SD 47.6 fl (35.1-43.9); Red Blood Count 4.34 M/mm3 (4.6-6.2); White Blood Count 5.4 K/mm3 (4.4-11.0)
[2019-07-14 11:35] LABS: AST(SGOT) 34 U/L (15-37); Alanine Aminotransfer ALT/SGPT 32 U/L (16-61); Albumin, Serum 3.8 g/dL (3.2-5.0); Alkaline Phosphatase 79 U/L (45-117); Anion Gap 7 (5-15); BUN 24 mg/dL (7-18); BUN/Creat Ratio 22.2 RATIO (10-20); Bilirubin, Direct 0.15 mg/dL (0.00-0.30); Calcium,Total 8.6 mg/dL (8.5-10.1); Chloride 107 mmol/L (98-107); Creatinine, Serum 1.08 mg/dL (0.70-1.30); EST Glomerular Filtration Rate 74 mL/min (>60); Est Glom Filt Rate - Afr Amer 90 mL/min (>60); Globulin 3.5 g/dL (2.2-4.2); Glucose 102 mg/dL (74-106); Protein, Total 7.3 g/dL (6.4-8.2); Sodium Level 140 mmol/L (136-145)
== END ==
PROVIDERS: Family Provider Family Medicine; PCP Family Medicine; Referring Provider Internal Medicine Rheumatology; Visit Provider Internal Medicine Rheumatology
DX: L40.59 Other psoriatic arthropathy (principal); Z79.899 Other long term (current) drug therapy; L40.8 Other psoriasis; M18.11 Unilateral primary osteoarthritis of first carpometacarpal joint, right hand; M21.40 Flat foot [pes planus] (acquired), unspecified foot; I10 Essential (primary) hypertension; E03.9 Hypothyroidism, unspecified; E78.5 Hyperlipidemia, unspecified; M51.37 Other intervertebral disc degeneration, lumbosacral region
CPT/HCPCS: 36415; 80048; 80076; 85025

== ENCOUNTER → 2019-10-20 09:35 | Outpatient (CLI) | payer BC, SELFPAY ==
[2019-10-20 10:17] LABS: Absolute Lymphocyte Count 1.22 X10^3/uL (0.83-4.51); Absolute Neutrophil Count 2.7 X10^3/uL (2.0-7.7); Basophil# 0.06 X10^3/uL; Basophil% 1.3 % (0-1); Eosinophils% 4.3 % (0-5); Hematocrit 40.1 % (40-54); Hemoglobin 12.8 g/dL (13.0-16.5); Lymphocyte # 1.22 X10^3/ul (4.0); Lymphocyte % 26.2 % (19-41); Mean Corp Hgb Conc 31.9 g/dL (32-36); Mean Corpuscular Hgb 28.9 pg (27.0-32.0); Mean Corpuscular Volume 90.5 fL (80-94); Mean Platelet Vol. 9.9 fl (6.2-12.0); Monocyte% 10.7 % (0-10); NRBC Flagged by Analyzer 0 % (0-5); Neutrophil # 2.65 X10^3/uL (2.7-7.7); Neutrophil % 56.9 % (47-70); Platelet Count 249 K/mm3 (150-450); RBC Distribution Width CV 14.3 % (11.6-14.6); RBC Distribution Width SD 47.8 fl (35.1-43.9); Red Blood Count 4.43 M/mm3 (4.6-6.2); White Blood Count 4.7 K/mm3 (4.4-11.0)
[2019-10-20 11:11] LABS: ALB/GLOB Ratio 1.2 RATIO (0.9-2.4); AST(SGOT) 14 U/L (15-37); Alanine Aminotransfer ALT/SGPT 26 U/L (16-61); Albumin, Serum 3.7 g/dL (3.2-5.0); Alkaline Phosphatase 66 U/L (45-117); Anion Gap 3 (5-15); BUN 22 mg/dL (7-18); BUN/Creat Ratio 20.6 RATIO (10-20); Calcium,Total 8.6 mg/dL (8.5-10.1); Chloride 108 mmol/L (98-107); Creatinine, Serum 1.07 mg/dL (0.70-1.30); EST Glomerular Filtration Rate 75 mL/min (>60); Est Glom Filt Rate - Afr Amer 91 mL/min (>60); Globulin 3.1 g/dL (2.2-4.2); Glucose 100 mg/dL (74-106); Potassium 3.6 mmol/L (3.5-5.1); Protein, Total 6.8 g/dL (6.4-8.2); Sodium Level 140 mmol/L (136-145)
== END ==
PROVIDERS: PCP Family Medicine; Referring Provider Internal Medicine Rheumatology; Visit Provider Internal Medicine Rheumatology
DX: L40.59 Other psoriatic arthropathy (principal); M18.11 Unilateral primary osteoarthritis of first carpometacarpal joint, right hand; M21.40 Flat foot [pes planus] (acquired), unspecified foot; I10 Essential (primary) hypertension; E03.9 Hypothyroidism, unspecified; E78.5 Hyperlipidemia, unspecified; M51.37 Other intervertebral disc degeneration, lumbosacral region; Z79.899 Other long term (current) drug therapy
CPT/HCPCS: 36415; 80053; 85025

== ENCOUNTER → 2019-12-29 08:57 | Outpatient (CLI) | payer BC, SELFPAY ==
[2019-12-29 09:46] LABS: Hemoglobin A1c 5.9 % (4.2-6.3)
[2019-12-29 10:02] LABS: Cholesterol 147 mg/dL (200); High Density Lipoprotein 34 mg/dL; PSA,Total - Annual Screen 1.18 ng/mL (0.00-4.00); Thyroid Stim Hormone (TSH) 2.56 uIU/mL (0.358-3.74); Triglycerides 171 mg/dL; Very Low Density Lipoprotein 34 mg/dL (5-40)
== END ==
PROVIDERS: PCP Family Medicine; Visit Provider Family Medicine
DX: Z12.5 Encounter for screening for malignant neoplasm of prostate (principal); E78.1 Pure hyperglyceridemia; R73.03 Prediabetes; E03.9 Hypothyroidism, unspecified
CPT/HCPCS: 36415; 80061; 83036; 84153; 84443; G0103

== ENCOUNTER → 2020-01-12 09:47 | Outpatient (CLI) | payer BC, SELFPAY ==
[2020-01-12 10:41] LABS: Absolute Lymphocyte Count 1.22 X10^3/uL (0.83-4.51); Absolute Neutrophil Count 3.4 X10^3/uL (2.0-7.7); Basophil# 0.07 X10^3/uL; Basophil% 1.3 % (0-1); Eosinophil# 0.23 X10^3/uL; Eosinophils% 4.1 % (0-5); Hematocrit 42.7 % (40-54); Hemoglobin 13.5 g/dL (13.0-16.5); Lymphocyte # 1.22 X10^3/ul (4.0); Lymphocyte % 21.9 % (19-41); Mean Corp Hgb Conc 31.6 g/dL (32-36); Mean Corpuscular Hgb 29.2 pg (27.0-32.0); Mean Corpuscular Volume 92.4 fL (80-94); Mean Platelet Vol. 10.6 fl (6.2-12.0); Monocyte# 0.58 X10^3/uL; Monocyte% 10.4 % (0-10); NRBC Flagged by Analyzer 0 % (0-5); Neutrophil # 3.42 X10^3/uL (2.7-7.7); Neutrophil % 61.2 % (47-70); Platelet Count 276 K/mm3 (150-450); RBC Distribution Width CV 14.1 % (11.6-14.6); RBC Distribution Width SD 47.4 fl (35.1-43.9); Red Blood Count 4.62 M/mm3 (4.6-6.2); White Blood Count 5.6 K/mm3 (4.4-11.0)
[2020-01-12 10:55] LABS: ALB/GLOB Ratio 1.2 RATIO (0.9-2.4); AST(SGOT) 18 U/L (15-37); Alanine Aminotransfer ALT/SGPT 29 U/L (16-61); Alkaline Phosphatase 78 U/L (45-117); Anion Gap 8 (5-15); BUN 20 mg/dL (7-18); BUN/Creat Ratio 18.7 RATIO (10-20); Calcium,Total 8.6 mg/dL (8.5-10.1); Chloride 106 mmol/L (98-107); Creatinine, Serum 1.07 mg/dL (0.70-1.30); EST Glomerular Filtration Rate 75 mL/min (>60); Est Glom Filt Rate - Afr Amer 91 mL/min (>60); Globulin 3.3 g/dL (2.2-4.2); Glucose 98 mg/dL (74-106); Potassium 3.5 mmol/L (3.5-5.1); Protein, Total 7.3 g/dL (6.4-8.2); Sodium Level 143 mmol/L (136-145)
== END ==
PROVIDERS: PCP Family Medicine; Referring Provider Internal Medicine Rheumatology; Visit Provider Internal Medicine Rheumatology
DX: L40.59 Other psoriatic arthropathy (principal); M18.11 Unilateral primary osteoarthritis of first carpometacarpal joint, right hand; M21.40 Flat foot [pes planus] (acquired), unspecified foot; I10 Essential (primary) hypertension; E03.9 Hypothyroidism, unspecified; E78.5 Hyperlipidemia, unspecified; M51.37 Other intervertebral disc degeneration, lumbosacral region; Z79.899 Other long term (current) drug therapy
CPT/HCPCS: 36415; 80053; 85025

== ENCOUNTER → 2020-04-05 08:12 | Outpatient (CLI) | payer BC, SELFPAY ==
[2020-02-14 17:53] VITALS: BMI 28.3
[2020-04-05 08:54] LABS: Absolute Lymphocyte Count 1.36 X10^3/uL (0.83-4.51); Absolute Neutrophil Count 3.1 X10^3/uL (2.0-7.7); Basophil# 0.08 X10^3/uL; Basophil% 1.5 % (0-1); Eosinophil# 0.25 X10^3/uL; Eosinophils% 4.5 % (0-5); Hematocrit 39.4 % (40-54); Hemoglobin 12.7 g/dL (13.0-16.5); Lymphocyte # 1.36 X10^3/ul (4.0); Lymphocyte % 24.7 % (19-41); Mean Corp Hgb Conc 32.2 g/dL (32-36); Mean Corpuscular Hgb 29.7 pg (27.0-32.0); Mean Corpuscular Volume 92.1 fL (80-94); Mean Platelet Vol. 10.2 fl (6.2-12.0); Monocyte# 0.63 X10^3/uL; Monocyte% 11.5 % (0-10); NRBC Flagged by Analyzer 0 % (0-5); Neutrophil % 56.3 % (47-70); Platelet Count 265 K/mm3 (150-450); RBC Distribution Width CV 14.5 % (11.6-14.6); RBC Distribution Width SD 48.2 fl (35.1-43.9); Red Blood Count 4.28 M/mm3 (4.6-6.2); White Blood Count 5.5 K/mm3 (4.4-11.0)
[2020-04-05 09:28] LABS: ALB/GLOB Ratio 1.2 RATIO (0.9-2.4); AST(SGOT) 15 U/L (15-37); Alanine Aminotransfer ALT/SGPT 26 U/L (16-61); Albumin, Serum 3.8 g/dL (3.2-5.0); Alkaline Phosphatase 78 U/L (45-117); Anion Gap 2 (5-15); BUN 18 mg/dL (7-18); Calcium,Total 8.4 mg/dL (8.5-10.1); Chloride 107 mmol/L (98-107); EST Glomerular Filtration Rate 81 mL/min (>60); Est Glom Filt Rate - Afr Amer 98 mL/min (>60); Globulin 3.3 g/dL (2.2-4.2); Glucose 100 mg/dL (74-106); Potassium 3.4 mmol/L (3.5-5.1); Protein, Total 7.1 g/dL (6.4-8.2); Sodium Level 140 mmol/L (136-145)
== END ==
PROVIDERS: PCP Family Medicine; Referring Provider Internal Medicine Rheumatology; Visit Provider Internal Medicine Rheumatology
DX: L40.59 Other psoriatic arthropathy (principal); M18.11 Unilateral primary osteoarthritis of first carpometacarpal joint, right hand; G56.02 Carpal tunnel syndrome, left upper limb; M21.40 Flat foot [pes planus] (acquired), unspecified foot; I10 Essential (primary) hypertension; E03.9 Hypothyroidism, unspecified; E78.5 Hyperlipidemia, unspecified; M51.37 Other intervertebral disc degeneration, lumbosacral region; Z79.899 Other long term (current) drug therapy
CPT/HCPCS: 36415; 80053; 85025

== ENCOUNTER → 2020-04-11 17:41 | Outpatient (CLI) | payer BC, SELFPAY ==
[2020-02-14 17:53] VITALS: BMI 28.3
--- NOTE | 2020-04-11 17:45 | CT_ITS ---
STUDY: CT FACIAL BONES WITHOUT CONTRAST REASON FOR EXAM: Male, 59 years old. PT STATED CHRONIC CONGESTION FOR YEARS, POSSIBLE [facility] SURGERY RADIATION DOSAGE (If Supplied By Facility): CTDIvol = ( 33.45 ) mGy, DLP = ( 905.99 ) mGycm TECHNIQUE: The patient was scanned in a multi detector CT scanner. Sagittal and coronal images were reconstructed. Individualized dose optimization techniques were used for this CT. COMPARISON: None. FINDINGS: Facial bones are intact. Paranasal sinuses are clear with miniscule right mucosal retention cyst in the maxillary sinus and retained unerupted tooth in the side the left maxillary sinus with mucosal coverage. There is no acute or chronic paranasal sinus disease. Orbits are normal. Sella turcica is enlarged with a dehiscent lower and mildly enlarged gland measuring 1.6 cm. There is probably no extension into the suprasellar compartment, although evaluation is limited on CT. CT/Sinus/Facial Bone IMPRESSION: 1. Unremarkable paranasal sinuses without acute or chronic illness. 2. 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 Refer to MR and endocrinologic laboratory assessment. Electronically Signed: Jerome Simons, at 18:22 EDT Tel , Service support ,
== END ==
PROVIDERS: PCP Family Medicine; Referring Provider Otolaryngology; Visit Provider Otolaryngology
DX: J32.9 Chronic sinusitis, unspecified (principal)
CPT/HCPCS: 70486

== ENCOUNTER → 2020-04-21 17:00 | Outpatient (CLI) | payer BC, SELFPAY ==
[2020-04-21 13:36] VITALS: BMI 28.3
== END ==
PROVIDERS: PCP Family Medicine; Referring Provider Physician Assistant Surgical; Visit Provider Physician Assistant Surgical
DX: Z20.828 Contact with and (suspected) exposure to other viral communicable diseases (principal)
CPT/HCPCS: 87635; 94799; U0003

== ENCOUNTER → 2020-06-25 17:27 | Outpatient (CLI) | payer BC, SELFPAY ==
[2020-06-11 13:07] VITALS: BMI 28.3
[2020-06-25 17:50] LABS: Absolute Lymphocyte Count 1.28 X10^3/uL (0.83-4.51); Absolute Neutrophil Count 4.2 X10^3/uL (2.0-7.7); Basophil# 0.07 X10^3/uL; Basophil% 1.1 % (0-1); Eosinophil# 0.18 X10^3/uL; Eosinophils% 2.9 % (0-5); Hematocrit 40.6 % (40-54); Hemoglobin 12.8 g/dL (13.0-16.5); Lymphocyte # 1.28 X10^3/ul (4.0); Lymphocyte % 20.3 % (19-41); Mean Corp Hgb Conc 31.5 g/dL (32-36); Mean Corpuscular Hgb 28.7 pg (27.0-32.0); Mean Platelet Vol. 9.5 fl (6.2-12.0); Monocyte# 0.53 X10^3/uL; Monocyte% 8.4 % (0-10); NRBC Flagged by Analyzer 0 % (0-5); Neutrophil # 4.18 X10^3/uL (2.7-7.7); Neutrophil % 66.3 % (47-70); Platelet Count 282 K/mm3 (150-450); RBC Distribution Width CV 14.1 % (11.6-14.6); RBC Distribution Width SD 46.5 fl (35.1-43.9); Red Blood Count 4.46 M/mm3 (4.6-6.2); White Blood Count 6.3 K/mm3 (4.4-11.0)
[2020-06-25 18:17] LABS: ALB/GLOB Ratio 1.1 RATIO (0.9-2.4); AST(SGOT) 18 U/L (15-37); Alanine Aminotransfer ALT/SGPT 30 U/L (16-61); Albumin, Serum 3.9 g/dL (3.2-5.0); Alkaline Phosphatase 81 U/L (45-117); Anion Gap 6 (5-15); BUN 21 mg/dL (7-18); BUN/Creat Ratio 13.2 RATIO (10-20); Calcium,Total 8.8 mg/dL (8.5-10.1); Chloride 104 mmol/L (98-107); Creatinine, Serum 1.59 mg/dL (0.70-1.30); EST Glomerular Filtration Rate 48 mL/min (>60); Est Glom Filt Rate - Afr Amer 57 mL/min (>60); Globulin 3.6 g/dL (2.2-4.2); Glucose 131 mg/dL (74-106); Potassium 3.8 mmol/L (3.5-5.1); Protein, Total 7.5 g/dL (6.4-8.2); Sodium Level 138 mmol/L (136-145)
== END ==
PROVIDERS: PCP Family Medicine; Referring Provider Internal Medicine Rheumatology; Visit Provider Internal Medicine Rheumatology
DX: L40.59 Other psoriatic arthropathy (principal); M18.11 Unilateral primary osteoarthritis of first carpometacarpal joint, right hand; G56.02 Carpal tunnel syndrome, left upper limb; M21.40 Flat foot [pes planus] (acquired), unspecified foot; I10 Essential (primary) hypertension; E03.9 Hypothyroidism, unspecified; E78.5 Hyperlipidemia, unspecified; M51.37 Other intervertebral disc degeneration, lumbosacral region; Z79.899 Other long term (current) drug therapy
CPT/HCPCS: 36415; 80053; 85025

== ENCOUNTER → 2020-07-14 17:34 | Outpatient (CLI) | payer BC, SELFPAY ==
[2020-06-11 13:07] VITALS: BMI 28.3
== END ==
PROVIDERS: PCP Family Medicine; Referring Provider Otolaryngology; Visit Provider Otolaryngology
DX: Z20.828 Contact with and (suspected) exposure to other viral communicable diseases (principal)
CPT/HCPCS: 87635; C9803; U0003

== ENCOUNTER → 2020-08-01 11:40 | Outpatient (CLI) | payer BC, SELFPAY ==
[2020-06-11 13:07] VITALS: BMI 28.3
[2020-08-01 12:39] LABS: ALB/GLOB Ratio 1.2 RATIO (0.9-2.4); AST(SGOT) 30 U/L (15-37); Alanine Aminotransfer ALT/SGPT 45 U/L (16-61); Albumin, Serum 3.8 g/dL (3.2-5.0); Alkaline Phosphatase 65 U/L (45-117); Anion Gap 2 (5-15); BUN 18 mg/dL (7-18); BUN/Creat Ratio 16.5 RATIO (10-20); Calcium,Total 8.6 mg/dL (8.5-10.1); Chloride 107 mmol/L (98-107); Creatinine, Serum 1.09 mg/dL (0.70-1.30); EST Glomerular Filtration Rate 73 mL/min (>60); Est Glom Filt Rate - Afr Amer 89 mL/min (>60); Globulin 3.3 g/dL (2.2-4.2); Glucose 118 mg/dL (74-106); Potassium 3.8 mmol/L (3.5-5.1); Protein, Total 7.1 g/dL (6.4-8.2); Sodium Level 141 mmol/L (136-145)
== END ==
PROVIDERS: PCP Family Medicine; Referring Provider Internal Medicine Rheumatology; Visit Provider Internal Medicine Rheumatology
DX: L40.59 Other psoriatic arthropathy (principal); M18.11 Unilateral primary osteoarthritis of first carpometacarpal joint, right hand; G56.02 Carpal tunnel syndrome, left upper limb; M21.40 Flat foot [pes planus] (acquired), unspecified foot; I10 Essential (primary) hypertension; E03.9 Hypothyroidism, unspecified; E78.5 Hyperlipidemia, unspecified; M51.37 Other intervertebral disc degeneration, lumbosacral region; Z79.899 Other long term (current) drug therapy
CPT/HCPCS: 36415; 80053

== ENCOUNTER → 2020-11-08 09:27 | Outpatient (CLI) | payer BC, SELFPAY ==
[2020-06-11 13:07] VITALS: BMI 28.3
[2020-11-08 09:56] LABS: Absolute Lymphocyte Count 1.44 X10^3/uL (0.83-4.51); Absolute Neutrophil Count 2.6 X10^3/uL (2.0-7.7); Basophil# 0.08 X10^3/uL; Basophil% 1.6 % (0-1); Eosinophil# 0.22 X10^3/uL; Eosinophils% 4.5 % (0-5); Hematocrit 41.1 % (40-54); Hemoglobin 13.2 g/dL (13.0-16.5); Lymphocyte # 1.44 X10^3/ul (4.0); Lymphocyte % 29.2 % (19-41); Mean Corp Hgb Conc 32.1 g/dL (32-36); Mean Corpuscular Hgb 28.9 pg (27.0-32.0); Mean Corpuscular Volume 89.9 fL (80-94); Mean Platelet Vol. 10.2 fl (6.2-12.0); Monocyte# 0.54 X10^3/uL; NRBC Flagged by Analyzer 0 % (0-5); Neutrophil # 2.57 X10^3/uL (2.7-7.7); Neutrophil % 52.1 % (47-70); Platelet Count 271 K/mm3 (150-450); RBC Distribution Width CV 13.2 % (11.6-14.6); RBC Distribution Width SD 43.1 fl (35.1-43.9); Red Blood Count 4.57 M/mm3 (4.6-6.2); White Blood Count 4.9 K/mm3 (4.4-11.0)
[2020-11-08 10:26] LABS: ALB/GLOB Ratio 1.1 RATIO (0.9-2.4); AST(SGOT) 19 U/L (15-37); Alanine Aminotransfer ALT/SGPT 32 U/L (16-61); Albumin, Serum 3.9 g/dL (3.2-5.0); Alkaline Phosphatase 77 U/L (45-117); Anion Gap 5 (5-15); BUN 21 mg/dL (7-18); BUN/Creat Ratio 19.3 RATIO (10-20); Calcium,Total 8.8 mg/dL (8.5-10.1); Chloride 105 mmol/L (98-107); Creatinine, Serum 1.09 mg/dL (0.70-1.30); EST Glomerular Filtration Rate 73 mL/min (>60); Est Glom Filt Rate - Afr Amer 89 mL/min (>60); Globulin 3.4 g/dL (2.2-4.2); Glucose 115 mg/dL (74-106); Potassium 3.7 mmol/L (3.5-5.1); Protein, Total 7.3 g/dL (6.4-8.2); Sodium Level 141 mmol/L (136-145)
== END ==
PROVIDERS: PCP Family Medicine; Referring Provider Internal Medicine Rheumatology; Visit Provider Internal Medicine Rheumatology
DX: L40.59 Other psoriatic arthropathy (principal); M18.11 Unilateral primary osteoarthritis of first carpometacarpal joint, right hand; G56.02 Carpal tunnel syndrome, left upper limb; M51.37 Other intervertebral disc degeneration, lumbosacral region; M21.40 Flat foot [pes planus] (acquired), unspecified foot; I10 Essential (primary) hypertension; E78.5 Hyperlipidemia, unspecified; E03.9 Hypothyroidism, unspecified
CPT/HCPCS: 36415; 80053; 85025

== ENCOUNTER → 2021-02-21 09:27 | Outpatient (CLI) | payer BC, SELFPAY ==
[2021-02-05 17:39] VITALS: BMI 35.2
[2021-02-21 10:25] LABS: Absolute Lymphocyte Count 1.32 X10^3/uL (0.83-4.51); Absolute Neutrophil Count 2.9 X10^3/uL (2.0-7.7); Basophil# 0.07 X10^3/uL; Basophil% 1.4 % (0-1); Eosinophil# 0.21 X10^3/uL; Eosinophils% 4.1 % (0-5); Hematocrit 41.7 % (40-54); Hemoglobin 13.3 g/dL (13.0-16.5); Lymphocyte # 1.32 X10^3/ul (0.83-4.51); Lymphocyte % 25.8 % (19-41); Mean Corp Hgb Conc 31.9 g/dL (32-36); Mean Corpuscular Hgb 28.2 pg (27.0-32.0); Mean Corpuscular Volume 88.5 fL (80-94); Mean Platelet Vol. 10.4 fl (6.2-12.0); Monocyte% 11.7 % (0-10); NRBC Flagged by Analyzer 0 % (0-5); Neutrophil # 2.85 X10^3/uL (2.7-7.7); Neutrophil % 55.8 % (47-70); Platelet Count 275 K/mm3 (150-450); RBC Distribution Width CV 13.5 % (11.6-14.6); RBC Distribution Width SD 43.9 fl (35.1-43.9); Red Blood Count 4.71 M/mm3 (4.6-6.2); White Blood Count 5.1 K/mm3 (4.4-11.0)
[2021-02-21 10:57] LABS: ALB/GLOB Ratio 1.1 RATIO (0.9-2.4); AST(SGOT) 24 U/L (15-37); Alanine Aminotransfer ALT/SGPT 41 U/L (16-61); Albumin, Serum 3.9 g/dL (3.2-5.0); Alkaline Phosphatase 85 U/L (45-117); Anion Gap 6 (5-15); BUN 12 mg/dL (7-18); BUN/Creat Ratio 12.1 RATIO (10-20); Calcium,Total 8.8 mg/dL (8.5-10.1); Chloride 102 mmol/L (98-107); Creatinine, Serum 0.99 mg/dL (0.70-1.30); EST Glomerular Filtration Rate 82 mL/min (>60); Est Glom Filt Rate - Afr Amer 99 mL/min (>60); Globulin 3.5 g/dL (2.2-4.2); Glucose 104 mg/dL (74-106); Potassium 3.7 mmol/L (3.5-5.1); Protein, Total 7.4 g/dL (6.4-8.2); Sodium Level 140 mmol/L (136-145)
== END ==
PROVIDERS: PCP Family Medicine; Referring Provider Internal Medicine Rheumatology; Visit Provider Internal Medicine Rheumatology
DX: L40.59 Other psoriatic arthropathy (principal); M18.11 Unilateral primary osteoarthritis of first carpometacarpal joint, right hand; G56.02 Carpal tunnel syndrome, left upper limb; M21.40 Flat foot [pes planus] (acquired), unspecified foot; I10 Essential (primary) hypertension; E03.9 Hypothyroidism, unspecified; E78.5 Hyperlipidemia, unspecified; M51.37 Other intervertebral disc degeneration, lumbosacral region; Z79.899 Other long term (current) drug therapy
CPT/HCPCS: 36415; 80053; 85025

== ENCOUNTER → 2021-05-16 09:40 | Outpatient (CLI) | payer BC, SELFPAY ==
[2021-05-16 10:24] LABS: Absolute Lymphocyte Count 1.48 X10^3/uL (0.83-4.51); Absolute Neutrophil Count 3.5 X10^3/uL (2.0-7.7); Basophil% 1.7 % (0-1); Eosinophil# 0.39 X10^3/uL; Eosinophils% 6.4 % (0-5); Hemoglobin 13.3 g/dL (13.0-16.5); Lymphocyte # 1.48 X10^3/ul (0.83-4.51); Lymphocyte % 24.5 % (19-41); Mean Corp Hgb Conc 31.7 g/dL (32-36); Mean Corpuscular Hgb 28.3 pg (27.0-32.0); Mean Corpuscular Volume 89.4 fL (80-94); Mean Platelet Vol. 10.2 fl (6.2-12.0); Monocyte# 0.54 X10^3/uL; Monocyte% 8.9 % (0-10); NRBC Flagged by Analyzer 0 % (0-5); Neutrophil # 3.46 X10^3/uL (2.7-7.7); Neutrophil % 57.2 % (47-70); Platelet Count 288 K/mm3 (150-450); RBC Distribution Width CV 13.4 % (11.6-14.6); RBC Distribution Width SD 44.3 fl (35.1-43.9); White Blood Count 6.1 K/mm3 (4.4-11.0)
[2021-05-16 10:53] LABS: AST(SGOT) 27 U/L (15-37); Alanine Aminotransfer ALT/SGPT 33 U/L (16-61); Albumin, Serum 3.7 g/dL (3.2-5.0); Alkaline Phosphatase 72 U/L (45-117); Anion Gap 5 (5-15); BUN 21 mg/dL (7-18); BUN/Creat Ratio 19.1 RATIO (10-20); Calcium,Total 8.8 mg/dL (8.5-10.1); Chloride 103 mmol/L (98-107); EST Glomerular Filtration Rate 72 mL/min (>60); Est Glom Filt Rate - Afr Amer 88 mL/min (>60); Globulin 3.7 g/dL (2.2-4.2); Glucose 118 mg/dL (74-106); Potassium 3.8 mmol/L (3.5-5.1); Protein, Total 7.4 g/dL (6.4-8.2); Sodium Level 140 mmol/L (136-145)
== END ==
PROVIDERS: PCP Family Medicine; Referring Provider Internal Medicine Rheumatology; Visit Provider Internal Medicine Rheumatology
DX: L40.59 Other psoriatic arthropathy (principal); M18.11 Unilateral primary osteoarthritis of first carpometacarpal joint, right hand; G56.02 Carpal tunnel syndrome, left upper limb; I10 Essential (primary) hypertension; E03.9 Hypothyroidism, unspecified; E78.5 Hyperlipidemia, unspecified; M51.37 Other intervertebral disc degeneration, lumbosacral region; M21.40 Flat foot [pes planus] (acquired), unspecified foot; Z79.899 Other long term (current) drug therapy
CPT/HCPCS: 36415; 80053; 85025

== ENCOUNTER → 2021-05-29 07:19 | Outpatient (CLI) | payer BC, SELFPAY ==
[2021-06-01 16:50] LABS: ANTINUCLEAR ANTIBODIES DIRECT Negative (Negative); Anti-Mitochondrial AB <20.0 Units (0.0-20.0)
[2021-06-01 16:54] LABS: Anti-Smooth Muscle ABS 17 Units (0-19); Carbohydrate Ag 19-9 2261 10 U/mL (0-35); Immunoglobulin G 781 mg/dL (603-1613)
== END ==
PROVIDERS: PCP Family Medicine; Referring Provider Internal Medicine Gastroenterology; Visit Provider Internal Medicine Gastroenterology
DX: K86.1 Other chronic pancreatitis (principal)
CPT/HCPCS: 36415; 82784; 83516; 86038; 86225; 86235; 86301

== ENCOUNTER 2021-06-15 07:00 | Day surgery (SDC) | payer BC, SELFPAY ==
[2021-06-15] VITALS (7 sets, daily range): BP systolic 101–159; BP diastolic 59–85; PULSE 57–65; RESP 16; TEMP 36.1–36.4; O2SAT 95–100; BMI 35.2
--- NOTE | 2021-06-15 | COLBX_PTH ---
PATIENT: MYRANDA OLEA LOC: EN U#:[id number] AGE/SX: 60/M ROOM: RE06/15/[address]: Dr. Mitchel Zuniga DO : 1960 BED: DIS: 06/15/2021 SPEC #: [id number] RECD: 06/15/21 12:33 STATUS: GERMAIN RADHA #: [id number] MIGUEL: 06/15/21 00:[address]: Mitchel Zuniga DEPT: SURGICAL PATHOLOGY RECD BY: Antony Munoz ENTERED: 06/15/21 12:34 SP TYPE: COLON BX OTHR DR: Dr. William Amado DO Tissues: A - Descending colon B - Sigmoid colon biopsy Procedures: Surgery Specimen Level IV HEADER OPERATION: Colonoscopy (MAC) PRE-OP DIAGNOSIS: Chronic pancreatitis, history of colon polyps TISSUE SUBMITTED: A ? Descending polyp biopsy, B ? Sigmoid polyps (2) MICROSCOPIC DIAGNOSIS A. Descending colon polyp, biopsy: Tubular adenoma. B. Sigmoid polyp, biopsy: Fragments of hyperplastic polyp (larger polyp). Tubular adenoma (smaller polyp). MIKE:ruthie 06/16/2021 MICROSCOPIC DESCRIPTION Slides are reviewed. GROSS DESCRIPTION A - Received in fixative is one container labeled with the patient's name and designated descending polyp biopsy. The specimen consists of one irregular fragment of light dsouza soft tissue that measures 0.3 x 0.3 x 0.1 cm. The specimen is totally submitted in one cassette. B - Received in fixative is one container labeled with the patient's name and designated sigmoid polyp. The specimen consists of three pieces of dsouza-pink polyp, the largest piece measuring 0.7 x 0.5 x 0.5 cm. This piece is bisected. The smaller two pieces measure in aggregate 1 x 0.5 x 0.3 cm. The entire specimen is submitted in one cassette. / MIKE:ruthie 06/15/21 TC:1 CPT: 83350 x2
[2021-06-15] MEDS: Lactated Ringers 1,000 ML 100 ML IV (07:40)
--- NOTE | 2021-06-15 08:37 | OP.COLON_ITS ---
Patient Name: Sunny Morrison Procedure Date: 06/15/2021 7:57 AM Date of : 1960 Age: 60 Procedure: Colonoscopy Indications: Last colonoscopy: May 2018 Providers: Mitchel Zuniga DO Medicines: Propofol per Anesthesia Patient Profile: This is a 60 year old male. Refer to note in patient chart for documentation of history and physical. Last Colonoscopy: 3 years ago. Complications: No immediate complications. Procedure: Pre-Anesthesia Assessment: - Prior to the procedure, a History and Physical was performed, and patient medications and allergies were reviewed. The patient is competent. The risks and benefits of the procedure and the sedation options and risks were discussed with the patient. All questions were answered and informed consent was obtained. Patient identification and proposed procedure were verified by the physician in the pre-procedure area. Mental Status Examination: alert and oriented. Airway Examination: normal oropharyngeal airway and neck mobility. Respiratory Examination: clear to auscultation. CV Examination: normal. Prophylactic Antibiotics: The patient does not require prophylactic antibiotics. Prior Anticoagulants: The patient has taken no previous anticoagulant or antiplatelet agents. ASA Grade Assessment: II - A patient with mild systemic disease. After reviewing the risks and benefits, the patient was deemed in satisfactory condition to undergo the procedure. The anesthesia plan was to use moderate sedation / analgesia (conscious sedation). Immediately prior to administration of medications, the patient was re-assessed for adequacy to receive sedatives. The heart rate, respiratory rate, oxygen saturations, blood pressure, adequacy of pulmonary ventilation, and response to care were monitored throughout the procedure. The physical status of the patient was re-assessed after the procedure. After I obtained informed consent, the scope was passed under direct vision. Throughout the procedure, the patient's blood pressure, pulse, and oxygen saturations were monitored continuously. The Colonoscope was introduced through the anus and advanced to the cecum, identified by appendiceal orifice and ileocecal valve. The colonoscopy was performed without difficulty. The patient tolerated the procedure well. The quality of the bowel preparation was good. Moderate Sedation: Moderate (conscious) sedation was administered by the endoscopy nurse and supervised by the endoscopist. The patient's oxygen saturation, heart rate, blood pressure and response to care were monitored. Total physician intraservice time was 15 minutes. Scope In: 8:10:55 AM Scope Withdrawal Time 0 hours 15 minutes 49 seconds Scope Out: 8:31:04 AM Total Procedure Duration Time 0 hours 20 minutes 9 seconds Findings: The perianal and digital rectal examinations were normal. Two sessile polyps were found in the sigmoid colon, proximal sigmoid colon and distal sigmoid colon. The polyps were 1 to 2 mm in size. These polyps were removed with a hot snare. Resection and retrieval were complete. Verification of patient identification for the specimen was done. Estimated blood loss was minimal. A 5 mm polyp was found in the descending colon. The polyp was sessile. The polyp was removed with a jumbo cold forceps. Resection and retrieval were complete. Verification of patient identification for the specimen was done. Estimated blood loss was minimal. Multiple medium-mouthed diverticula were found in the sigmoid colon, descending colon and splenic flexure. The exam was otherwise without abnormality on direct and retroflexion views. Impression: - Two 1 to 2 mm polyps in the sigmoid colon, in the proximal sigmoid colon and in the distal sigmoid colon, removed with a hot snare. Resected and retrieved. - One 5 mm polyp in the descending colon, removed with a jumbo cold forceps. Resected and retrieved. - Diverticulosis in the sigmoid colon, in the descending colon and at the splenic flexure. - The examination was otherwise normal on direct and retroflexion views. Recommendation: - Discharge patient to home. - Resume previous diet. - Continue present medications. - Await pathology results. - Repeat colonoscopy in 3 years for surveillance based on pathology results. - Return to GI office in 2 weeks. Procedure Code(s): --- Professional --- 86266, Colonoscopy, flexible; with removal of tumor(s), polyp(s), or other lesion(s) by snare technique 34274, 59, Colonoscopy, flexible; with biopsy, single or multiple G0500, Moderate sedation services provided by the same physician or other qualified health health care marketing specialist performing a gastrointestinal endoscopic service that sedation supports, requiring the presence of an independent trained observer to assist in the monitoring of the patient's level of consciousness and physiological status; initial 15 minutes of intra-service time; patient age 5 years or older (additional time may be reported with 08133, as appropriate) CPT copyright 2017 [employer]. All rights reserved. The codes documented in this report are preliminary and upon order processor review may be revised to meet current compliance requirements. Mitchel Zuniga DO 06/15/2021 8:37:34 AM This report has been signed electronically. Number of Addenda: 1 Note Initiated On: 06/15/2021 7:57 AM Addendum Number: 1 Addendum Date: 05/06/2022 4:28:19 PM MAC was used instead of moderate sedation for this patient. Mitchel Zuniga DO 05/06/2022 4:28:24 PM This report has been signed electronically.
--- NOTE | 2021-06-15 08:38 | OP.CCLET_ITS ---
05/06/2022 William Amado Re : Colonoscopy procedure for Sunny Morrison Dear Aneudy This procedure was performed on Tuesday, June 15, 2021. My impressions and recommendations are as follows: Impressions : - Two 1 to 2 mm polyps in the sigmoid colon, in the proximal sigmoid colon and in the distal sigmoid colon, removed with a hot snare. Resected and retrieved. - One 5 mm polyp in the descending colon, removed with a jumbo cold forceps. Resected and retrieved. - Diverticulosis in the sigmoid colon, in the descending colon and at the splenic flexure. - The examination was otherwise normal on direct and retroflexion views. Recommendations : - Discharge patient to home. - Resume previous diet. - Continue present medications. - Await pathology results. - Repeat colonoscopy in 3 years for surveillance based on pathology results. - Return to GI office in 2 weeks. My findings are described in the full procedure note, which is enclosed. If I can be of further assistance, please feel free to contact me at . Sincerely, Mitchel Zuniga, 06/15/2021 8:37:34 AM This report has been signed electronically.
--- NOTE | 2021-06-15 08:39 | HP.PCM_ITS ---
History and Physical Date of Admission: 06/15/21 [facility][1] [id number] [place] [address] OFFICE VISITDate of Service: 05/25/21 MR#:[id number]: LEFTYMYRANDA PRep #:[id number]:[id number] Provider:Mitchel Friend, DOAge/Sex: 60/M [place] [place] Intake Vital Signs 05/25/21 15:49 Height 5 ft 8 in Weight: 229 lb 2 oz BMI 34.8 Intake Visit Reasons: SCREEN FOR COLONOSCOPY Chief Complaint: Neck and Low Back Pain Allergies diltiazem [From Cardizem] Allergy (Unknown, Verified 05/25/21 15:48) Unknown gluten Allergy (Verified 05/25/21 15:48) Abd cramps/diarrhea Milk Containing Products Allergy (Verified 05/25/21 15:48) Diarrhea Medications apremilast 30 mg PO BID 12/22/15 [History Confirmed 05/25/21] carvedilol 25 mg PO BID 12/22/15 [History Confirmed 05/25/21] finasteride 5 mg PO DAILY 12/22/15 [History Confirmed 05/25/21] hydralazine 100 mg PO TID 12/22/15 [History Confirmed 05/25/21] levothyroxine 50 mcg PO DAILY 12/22/15 [History Confirmed 05/25/21] lisinopril 40 mg PO DAILY 12/22/15 [History Confirmed 05/25/21] methotrexate sodium 2.5 mg tablet 12.5 mg PO QWEEK 08/19/17 [History Confirmed 04/21/20] multivitamin 1 tab PO QAM 08/19/17 [History Confirmed 05/25/21] clonidine HCl 0.1 mg tablet 0.1 mg PO BID tab 09/09/17 [History Confirmed 05/25/21] prednisone 10 mg tablet 10 mg PO DAILY PRN 05/17/18 [History Confirmed 05/25/21] bismuth subsalicylate 262 mg PO TID 05/25/18 [History Confirmed 04/21/20] bisacodyl 5 mg tablet,delayed release 5 mg PO ONCE 1 Days #4 tab 05/25/21 [Rx Confirmed 05/25/21] hydrocortisone 2.5 % topical cream 1 applic TOPICAL BID PRN 05/25/21 [History Confirmed 05/25/21] ketoconazole 2 % shampoo 1 applic TOPICAL 2XW 05/25/21 [History Confirmed 05/25/21] mirabegron 50 mg tablet,extended release 24 hr 50 mg PO DAILY 05/25/21 [History Confirmed 05/25/21] oxybutynin chloride 10 mg tablet,extended release 24 hr 10 mg PO DAILY 05/25/21 [History Confirmed 05/25/21] polyethylene glycol 3350 17 gram/dose oral powder 17 g PO Q10M #238 g 05/25/21 [Rx Confirmed 05/25/21] [facility] Medical History (Updated 05/25/21 @ 16:[address] Grullon Friend, DO) Acute cholecystitis Anemia Bilateral cataracts Chronic pancreatitis DJD (degenerative joint disease), lumbar Eosinophilic esophagitis History of colon polyps Hypertension Hypertriglyceridemia Hypothyroid Lactose intolerance Obesity pre-diabetic Rheumatoid arthritis Seasonal allergies Segmental and somatic dysfunction of cervical region Segmental and somatic dysfunction of lumbar region Segmental and somatic dysfunction of thoracic region Surgical History History of esophagogastroduodenoscopy (EGD) History of esophagogastroduodenoscopy (EGD) (~05/29/18) Hx of cholecystectomy Hx of colonoscopy Hx of tonsillectomy S/P cholecystectomy S/P colonoscopy (~05/29/18) Family History Mother Cancer Hypertension Father Diabetes Social History Smoking Status: Never smoker HPI HPI Chief Complaint: Neck and Low Back Pain Details: MYRANDA OLEA, is a 60 M who presents to the office today for a personal history of adenomatous polyps. He had a colonoscopy 3 years ago. He had a large polyp which was removed. There was no cancer in the polyp. He was also discovered to have diverticular disease and mild hemorrhoids. He has been doing well without any change in bowel habits. He is not having any nausea vomiting or diarrhea. He been watching his weight. His blood pressures been stable. He was concerned because 3 years ago he had a CAT scan which did show some calcifications on his pancreas possibly secondary to chronic pancreatitis. He has no history of alcohol usage. He does not smoke. He has no family history of pancreatic disease. He has no history of cystic fibrosis. He has never had any infections that have affected the pancreas that he knows of. He is prediabetic but controls it with diet and exercise. ROS Const Constitutional: No anorexia, fatigue, fever(s), weight change or sleep problems Eyes Eyes: No change in vision ENT ENT: Positive for nasal congestion; No abnormal hearing Resp Respiratory: No cough or shortness of breath Cardio Cardiology: No chest pain at rest, chest pain with exertion, shortness of breath or dyspnea on exertion Gastro GI: Positive for bloating and heartburn Genitourinary Male: Positive for urinary frequency and urinary urgency Musc Musculoskeletal: Positive for joint pain, back pain, joint swelling, stiffness and Arthritis Skin Skin: Positive for itchy eyes Neuro Neurology: No abnormal hearing, abnormal movements, confusion, unsteady ga it/balance or memory loss Psych Psychiatric: No anxiety, No confusion and No memory loss Endo Endocrine: No fatigue or weight change Aller/Imm Allergy/Immunologic: Positive for itchy eyes Adonay/Lymp Hematologic/Lymphatic: No easy bleeding, easy bruising or enlarged lymph nodes Exam Const General: cooperative and comfortable Nutritional Appearance: average body habitus and well nourished HENMT Head: normal to inspection Ears: hearing grossly normal bilaterally Nose: external nose normal Face and sinus: normal facial exam Mouth: oral mucosae normal Throat: posterior oropharynx normal Eyes General: appearance normal, both eyes and all related structures Neck Neck: normal visual inspection Chest Chest palpation & inspection: normal inspection of the chest and normal palpation of entire chest wall Resp Effort & Inspection: normal respiratory effort Auscultation: Bilateral: Clear to Auscultation Cardio Palpation: normal PMI Rate: regular rate Rhythm: regular rhythm GI Inspection: normal to inspection Auscultation: normal bowel sounds Percussion: normal to percussion Palpation: no hepatosplenomegaly Skin General: no rashes or lesions noted Neuro General: patient alert Extrem General: normal to inspection Psych Affect: normal affect Quality Reporting Tobacco Screening ([facility] 138) Smoking Status: Never smoker Assessment and Plan Assessment and Plan (1) Chronic pancreatitis: Status: Chronic Orders: Orders: CA 19-9 Serial Monitor Today Plan - Dr. Grullon Friend, DO: He has some very small calcifications of his pancreas that I am not sure is secondary to chronic pancreatitis. This is because he has no risk factors for chronic pancreatitis. Asymptomatic calcifications of the pancreas. There is an entity called idiopathic calcifications of the pancreas but that is usually present in children. There is an entity such as autoimmune pancreatitis that could be the reason why he developed asymptomatic calcifications of the pancreas. I will check an IgG level, amylase, lipase, ESR, CRP, DEVEN, CA 19-9 (2) History of colon polyps: Status: Acute Plan - Dr. Grullon Friend, DO: Patient will undergo colonoscopy. He was explained alternatives, risk, benefits including not withstanding bleeding, infection, sepsis, perforation, need for emergent surgery . He will have a ASA of 1. Plan Details Other Medications: New: polyethylene glycol 3350 (Miralax) 17 grams PO Q10M 238 grams 0RF bisacodyl 5 mg PO ONCE 1 day 4 tabs 0RF Coding Level of Care Code Off vis,new,level 4 Diagnoses Chronic pancreatitis K86.1 History of colon polyps Z86.010
== END 2021-06-15 09:32 ==
LOC: EN 07:03 → AC 07:04
PROVIDERS: PCP Family Medicine; Referring Provider Family Medicine; Visit Provider Internal Medicine Gastroenterology
PROC: 0DJD8ZZ Inspection of Lower Intestinal Tract, Via Natural or Artificial Opening Endoscopic (ICD-10-PCS; CPT 45378; principal; 2021-06-15 07:55)
DX: Z12.11 Encounter for screening for malignant neoplasm of colon (principal); D12.4 Benign neoplasm of descending colon; D12.5 Benign neoplasm of sigmoid colon; K57.30 Diverticulosis of large intestine without perforation or abscess without bleeding; K86.1 Other chronic pancreatitis; I10 Essential (primary) hypertension; E03.9 Hypothyroidism, unspecified; E78.1 Pure hyperglyceridemia; R73.03 Prediabetes; M06.9 Rheumatoid arthritis, unspecified; E66.9 Obesity, unspecified; Z79.52 Long term (current) use of systemic steroids; Z79.890 Hormone replacement therapy; Z79.899 Other long term (current) drug therapy; Z86.010 Personal history of colon polyps
CPT/HCPCS: 45380; 45385; 88305; J7120; J2405

== ENCOUNTER 2021-10-19 16:28 | Outpatient (CLI) | payer BC, SELFPAY ==
--- NOTE | 2021-10-19 | IMM_PTH ---
PATIENT: MYRANDA OLEA LOC: [facility] U#:[id number] AGE/SX: 61/M ROOM: RE10/19/[address]: Dr. Phani Lutz MD : 1960 BED: DIS: 10/19/2021 SPEC #: [id number] RECD: 10/22/21 13:51 STATUS: GERMAIN REQ #: [id number] MIGUEL: 10/19/21 00:[address]: Phani Lutz DEPT: IMMUNOHISTOCHEMISTRY RECD BY: Silvia Quintero ENTERED: 10/22/21 13:52 SP TYPE: IMMUNO OTHR DR: Dr. William Amado, DO Tissues: D - PROSTATE LEFT B - PROSTATE RIGHT Procedures: 34BE12 (add) P40 (add) 34BE12 (initial) PHYSICIAN & INSTITUTION [place] [id number] SPECIMEN INFORMATION: Tissue Source: B ? Right prostate, mid, core biopsy, D - Left prostate, apex, core biopsy Clinical Info: Elevated PSA Specimen Number: [id number] B & D CPT code: 80465, 65297 x3 METHODOLOGY: Deparaffinized sections of prefer/formalin-fixed tissue or PAP/DQ stained slides are incubated with monoclonal/polyclonal antibodies/oligonucleotide probes. Localization is made via biotin free immunoperoxidase method. Appropriate controls are performed and reacted as expected. Results on target cell population are indicated in the following table: RESULTS: ANTIBODY / CLONE RESULT Block B P40 (BC28) positive 34BE12 (34BE12) positive Block D P40 (BC28) negative 34BE12 (34BE12) negative These tests were developed and their performance characteristics determined by [facility]. They may not have been cleared or approved by the U.S. Food and Drug Administration. The FDA has determined that such clearance or approval is not necessary. The above immunohistochemical/dualISH markers are ordered and reviewed by the Pathologist. INTERPRETATION: B. Right prostate, mid, core biopsy: Focal high-grade prostatic intraepithelial neoplasia (HGPIN). D. Left prostate, apex, core biopsy: Focal atypical small acinar proliferation (NED). SJ:ruthie 10/23/2021
--- NOTE | 2021-10-19 08:00 | PROSBIL_PTH ---
PATIENT: MYRANDA OLEA [facility] U#:[id number] AGE/SX: 61/M ROOM: RE10/19/[address]: Dr. Phani Lutz MD : 1960 BED: DIS: 10/19/2021 SPEC #: [id number] RECD: 10/20/21 09:58 STATUS: GERMAIN RENickolas #: [id number] MIGUEL: 10/19/21 08:[address]: Phani Lutz DEPT: SURGICAL PATHOLOGY RECD BY: Magaly Abdul ENTERED: 10/20/21 09:58 SP TYPE: PROST BX NEGRO DR: Dr. William Amado DO Tissues: A - PROSTATE RIGHT B - PROSTATE RIGHT C - PROSTATE RIGHT D - PROSTATE LEFT E - PROSTATE LEFT F - PROSTATE LEFT Procedures: PROSTATE BX HEADER OPERATION: Prostate biopsy PRE-OP DIAGNOSIS: Elevated PSA TISSUE SUBMITTED: A - Right apex, B - Right mid, C - Right base, D - Left apex, E - Left mid, F - Left base MICROSCOPIC DIAGNOSIS A. Right prostate, apex, core biopsy: Prostatic tissue, negative for malignancy. B. Right prostate, mid, core biopsy: Focal high-grade prostatic intraepithelial neoplasia (HGPIN). Focal mild chronic inflammation. See comment. C. Right prostate, base, core biopsy: Prostatic tissue, negative for malignancy. Focal mild chronic inflammation. D. Left prostate, apex, core biopsy: Focal atypical small acinar proliferation (NED). See comment. E. Left prostate, mid, core biopsy: Prostatic tissue, negative for malignancy. Focal mild chronic inflammation. F. Left prostate, base, core biopsy: Prostatic tissue, negative for malignancy. SJ:ruthie 10/21/2021 COMMENT B & D. Immunohistochemistry ([id number]) supports the above diagnosis. Case has been reviewed in consultation with Dr. Roman who concurs with the above diagnosis. IDC:AM MICROSCOPIC DESCRIPTION Slides are reviewed. GROSS DESCRIPTION A - Received is one container designated prostate, right apex. The specimen consists of two elongated fragments of light dsouza-white soft tissue each measuring 1 cm in length and 0.1 cm in diameter. The specimen is totally submitted in one cassette. B - Received is one container designated prostate, right mid. The specimen consists of two elongated fragments of light dsouza-white soft tissue each measuring 1 cm in length and 0.1 cm in diameter. The specimen is totally submitted in one cassette. C - Received is one container designated prostate, right base. The specimen consists of two elongated fragments of light dsouza-white soft tissue each measuring 0.9 cm in length and 0.1 cm in diameter. The specimen is totally submitted in one cassette. D - Received is one container designated prostate, left apex. The specimen consists of two elongated fragments of light dsouza-white soft tissue each measuring 1 cm in length and 0.1 cm in diameter. The specimen is totally submitted in one cassette. E - Received is one container designated prostate, left mid. The specimen consists of two elongated fragments of light dsouza-white soft tissue each measuring 1.3 cm in length and 0.1 cm in diameter. The specimen is totally submitted in one cassette. F - Received is one container designated prostate, left base. The specimen consists of two elongated fragments of light dsouza-white soft tissue each measuring 1 cm in length and 0.1 cm in diameter. The specimen is totally submitted in one cassette. / SJ:rg 10/20/2021 TC:5 CPT: 74554 x6
== END 2021-10-19 23:59 | disposition home or self-care (01) ==
LOC: LABSPEC 16:29
PROVIDERS: PCP Family Medicine; Visit Provider Urology
DX: R97.20 Elevated prostate specific antigen [PSA] (principal)
CPT/HCPCS: 88305; 88341; 88342; G0416

== ENCOUNTER 2021-11-09 17:26 | Outpatient (CLI) | payer BC, SELFPAY ==
[2021-11-09 18:07] LABS: Absolute Lymphocyte Count 1.22 X10^3/uL (0.83-4.51); Basophil# 0.08 X10^3/uL; Basophil% 1.5 % (0-1); Eosinophil# 0.27 X10^3/uL; Eosinophils% 5.2 % (0-5); Hematocrit 40.3 % (40-54); Hemoglobin 13.1 g/dL (13.0-16.5); Lymphocyte # 1.22 X10^3/ul (0.83-4.51); Lymphocyte % 23.4 % (19-41); Mean Corp Hgb Conc 32.5 g/dL (32-36); Mean Corpuscular Hgb 28.9 pg (27.0-32.0); Mean Platelet Vol. 10.1 fl (6.2-12.0); Monocyte# 0.59 X10^3/uL; Monocyte% 11.3 % (0-10); NRBC Flagged by Analyzer 0 % (0-5); Neutrophil # 2.96 X10^3/uL (2.7-7.7); Neutrophil % 56.7 % (47-70); Platelet Count 291 K/mm3 (150-450); RBC Distribution Width SD 45.4 fl (35.1-43.9); Red Blood Count 4.53 M/mm3 (4.6-6.2); White Blood Count 5.2 K/mm3 (4.4-11.0)
[2021-11-09 18:35] LABS: ALB/GLOB Ratio 1.1 RATIO (0.9-2.4); AST(SGOT) 19 U/L (15-37); Alanine Aminotransfer ALT/SGPT 38 U/L (16-61); Alkaline Phosphatase 78 U/L (45-117); Anion Gap 8 (5-15); BUN 15 mg/dL (7-18); BUN/Creat Ratio 15.6 RATIO (10-20); Calcium,Total 8.8 mg/dL (8.5-10.1); Chloride 104 mmol/L (98-107); Creatinine, Serum 0.96 mg/dL (0.70-1.30); EST Glomerular Filtration Rate 85 mL/min (>60); Est Glom Filt Rate - Afr Amer 102 mL/min (>60); Globulin 3.6 g/dL (2.2-4.2); Glucose 144 mg/dL (74-106); Potassium 3.2 mmol/L (3.5-5.1); Protein, Total 7.6 g/dL (6.4-8.2); Sodium Level 139 mmol/L (136-145)
[2021-11-09 19:13] LABS: Thyroid Stim Hormone (TSH) 2.27 uIU/mL (0.358-3.74)
[2021-11-14 16:08] LABS: Testosterone, Free 3.59 ng/dL (5.00-21.00)
[2021-11-14 22:45] LABS: Adrenocorticotropic Hormone 41.1 pg/mL (7.2-63.3); Somatomedin C 132 ng/mL (64-240); Testosterone, Total 138 ng/dL (264-916)
== END 2021-11-09 23:59 | disposition home or self-care (01) ==
LOC: LAB 17:28
PROVIDERS: Internal Medicine Endocrinology, Diabetes & Metabolism; PCP Family Medicine; Visit Provider Internal Medicine Rheumatology
DX: L40.59 Other psoriatic arthropathy (principal); L40.8 Other psoriasis; M18.11 Unilateral primary osteoarthritis of first carpometacarpal joint, right hand; G56.02 Carpal tunnel syndrome, left upper limb; M21.40 Flat foot [pes planus] (acquired), unspecified foot; I10 Essential (primary) hypertension; E03.9 Hypothyroidism, unspecified; E78.5 Hyperlipidemia, unspecified; M51.37 Other intervertebral disc degeneration, lumbosacral region; Z79.899 Other long term (current) drug therapy
CPT/HCPCS: 36415; 80053; 82024; 82533; 84305; 84402; 84403; 84439; 84443; 84481; 85025

== ENCOUNTER → 2022-04-24 | Outpatient (CLI) | payer BC, SELFPAY ==
[2022-04-24 09:43] LABS: PSA,Total - Annual Screen 1.73 ng/mL (0.00-4.00)
== END | disposition home or self-care (01) ==
LOC: LAB 08:47
PROVIDERS: PCP Family Medicine; Referring Provider Urology; Visit Provider Urology
DX: R97.20 Elevated prostate specific antigen [PSA] (principal)
CPT/HCPCS: 36415; 84153; G0103

== ENCOUNTER → 2022-05-13 | Outpatient (CLI) | payer BC, SELFPAY ==
[2022-05-13 10:08] LABS: Absolute Lymphocyte Count 1.71 X10^3/uL (0.83-4.51); Absolute Neutrophil Count 4.2 X10^3/uL (2.0-7.7); Basophil# 0.11 X10^3/uL; Basophil% 1.5 % (0-1); Eosinophil# 0.31 X10^3/uL; Eosinophils% 4.3 % (0-5); Hematocrit 41.4 % (40-54); Hemoglobin 13.4 g/dL (13.0-16.5); Lymphocyte # 1.71 X10^3/ul (0.83-4.51); Lymphocyte % 23.9 % (19-41); Mean Corp Hgb Conc 32.4 g/dL (32-36); Mean Corpuscular Hgb 29.6 pg (27.0-32.0); Mean Corpuscular Volume 91.4 fL (80-94); Monocyte# 0.65 X10^3/uL; Monocyte% 9.1 % (0-10); NRBC Flagged by Analyzer 0 % (0-5); Neutrophil # 4.19 X10^3/uL (2.7-7.7); Neutrophil % 58.8 % (47-70); Platelet Count 278 K/mm3 (150-450); RBC Distribution Width CV 13.8 % (11.6-14.6); RBC Distribution Width SD 47.2 fl (35.1-43.9); Red Blood Count 4.53 M/mm3 (4.6-6.2); White Blood Count 7.1 K/mm3 (4.4-11.0)
[2022-05-13 10:43] LABS: ALB/GLOB Ratio 1.1 RATIO (0.9-2.4); AST(SGOT) 16 U/L (15-37); Alanine Aminotransfer ALT/SGPT 43 U/L (16-61); Albumin, Serum 3.9 g/dL (3.2-5.0); Alkaline Phosphatase 63 U/L (45-117); Anion Gap 6 (5-15); BUN 24 mg/dL (7-18); BUN/Creat Ratio 18.3 RATIO (10-20); Calcium,Total 9.2 mg/dL (8.5-10.1); Chloride 102 mmol/L (98-107); Creatinine, Serum 1.31 mg/dL (0.70-1.30); EST Glomerular Filtration Rate 59 mL/min (>60); Est Glom Filt Rate - Afr Amer 71 mL/min (>60); Globulin 3.6 g/dL (2.2-4.2); Glucose 129 mg/dL (74-106); Potassium 4.6 mmol/L (3.5-5.1); Protein, Total 7.5 g/dL (6.4-8.2); Sodium Level 136 mmol/L (136-145)
== END | disposition home or self-care (01) ==
LOC: LAB 09:11
PROVIDERS: PCP Family Medicine; Referring Provider Internal Medicine Rheumatology; Visit Provider Internal Medicine Rheumatology
DX: L40.59 Other psoriatic arthropathy (principal); L40.8 Other psoriasis; M18.11 Unilateral primary osteoarthritis of first carpometacarpal joint, right hand; G56.02 Carpal tunnel syndrome, left upper limb; M21.40 Flat foot [pes planus] (acquired), unspecified foot; I10 Essential (primary) hypertension; E03.9 Hypothyroidism, unspecified; E78.5 Hyperlipidemia, unspecified; M51.37 Other intervertebral disc degeneration, lumbosacral region; Z79.899 Other long term (current) drug therapy
CPT/HCPCS: 36415; 80053; 85025

== ENCOUNTER → 2022-06-26 | Outpatient (CLI) | payer BC, SELFPAY ==
[2022-06-26 09:43] LABS: ALB/GLOB Ratio 1.2 RATIO (0.9-2.4); AST(SGOT) 24 U/L (15-37); Alanine Aminotransfer ALT/SGPT 47 U/L (16-61); Alkaline Phosphatase 64 U/L (45-117); Anion Gap 7 (5-15); BUN 25 mg/dL (7-18); BUN/Creat Ratio 17.9 RATIO (10-20); Calcium,Total 9.1 mg/dL (8.5-10.1); Chloride 101 mmol/L (98-107); EST Glomerular Filtration Rate 55 mL/min (>60); Est Glom Filt Rate - Afr Amer 66 mL/min (>60); Globulin 3.4 g/dL (2.2-4.2); Glucose 136 mg/dL (74-106); Potassium 4.2 mmol/L (3.5-5.1); Protein, Total 7.4 g/dL (6.4-8.2); Sodium Level 135 mmol/L (136-145)
== END | disposition home or self-care (01) ==
LOC: LAB 08:20
PROVIDERS: PCP Family Medicine; Referring Provider Internal Medicine Rheumatology; Visit Provider Internal Medicine Rheumatology
DX: L40.59 Other psoriatic arthropathy (principal); L40.8 Other psoriasis; Z79.899 Other long term (current) drug therapy
CPT/HCPCS: 36415; 80053

== ENCOUNTER → 2022-07-28 | Outpatient (CLI) | payer BC, SELFPAY ==
[2022-07-28 13:03] LABS: Vitamin D,25 Hydroxy 46.6 ng/mL
[2022-07-28 13:04] LABS: ALB/GLOB Ratio 1.2 RATIO (0.9-2.4); AST(SGOT) 16 U/L (15-37); Alanine Aminotransfer ALT/SGPT 35 U/L (16-61); Alkaline Phosphatase 62 U/L (45-117); Anion Gap 8 (5-15); BUN 33 mg/dL (7-18); BUN/Creat Ratio 19.3 RATIO (10-20); Calcium,Total 9.4 mg/dL (8.5-10.1); Chloride 102 mmol/L (98-107); Creatinine, Serum 1.71 mg/dL (0.70-1.30); EST Glomerular Filtration Rate 43 mL/min (>60); Est Glom Filt Rate - Afr Amer 52 mL/min (>60); Follicle Stimulating Hormone 2.5 mIU/mL; Free T3 1.6 pg/mL (2.18-3.98); Globulin 3.4 g/dL (2.2-4.2); Glucose 124 mg/dL (74-106); Luteinizing Hormone 2.6 mIU/mL; Potassium 4.5 mmol/L (3.5-5.1); Prolactin 13.7 ng/mL; Protein, Total 7.4 g/dL (6.4-8.2); Sodium Level 137 mmol/L (136-145); T4 Free Direct 1.11 ng/dL (0.76-1.46); Thyroid Stim Hormone (TSH) 2.01 uIU/mL (0.358-3.74)
[2022-07-28 13:17] LABS: Microalbumin,Random Urine 7.6 mg/L (NO RANGE EST.); Microalbumin:Creatinine Ratio 5.1 mg/g CRE (<30 mg/g CRE)
[2022-07-28 13:34] LABS: Hemoglobin A1c 6.6 % (3.8-5.6)
[2022-08-08 14:07] LABS: Red Blood Cell Count Test/G6PD 3.74 x10E6/uL (4.14-5.80); Testosterone, Free 5.78 ng/dL (5.00-21.00)
[2022-08-10 11:28] LABS: G6PD Quant Test 260 (127-427); Testosterone, Total 141 ng/dL (264-916)
== END | disposition home or self-care (01) ==
LOC: BIMLAB 09:31
PROVIDERS: PCP Family Medicine; Referring Provider Internal Medicine Endocrinology, Diabetes & Metabolism; Visit Provider Internal Medicine Endocrinology, Diabetes & Metabolism
DX: L40.59 Other psoriatic arthropathy (principal); D35.2 Benign neoplasm of pituitary gland; Z79.899 Other long term (current) drug therapy; L40.8 Other psoriasis; M18.11 Unilateral primary osteoarthritis of first carpometacarpal joint, right hand; G56.02 Carpal tunnel syndrome, left upper limb; M21.40 Flat foot [pes planus] (acquired), unspecified foot; I10 Essential (primary) hypertension; E03.9 Hypothyroidism, unspecified; E78.5 Hyperlipidemia, unspecified; M51.37 Other intervertebral disc degeneration, lumbosacral region; E03.8 Other specified hypothyroidism; E55.9 Vitamin D deficiency, unspecified
CPT/HCPCS: 80053; 82043; 82306; 82533; 82570; 82955; 83001; 83002; 83036; 84146; 84402; 84403; 84439; 84443; 84481

== ENCOUNTER → 2022-10-30 | Outpatient (CLI) | payer BC, SELFPAY ==
[2022-10-30 10:45] LABS: PSA,Total- Diagnostic 3.21 ng/mL (0.0-4.0)
== END | disposition home or self-care (01) ==
LOC: LAB 10:00
PROVIDERS: PCP Family Medicine; Visit Provider Urology
DX: R97.20 Elevated prostate specific antigen [PSA] (principal)
CPT/HCPCS: 36415; 84153

== ENCOUNTER → 2022-11-17 | Outpatient (CLI) | payer BC, SELFPAY ==
--- NOTE | 2022-11-17 17:51 | MRI_ITS ---
STUDY: MR PELVIS WITH AND WITHOUT CONTRAST (PROSTATE) REASON FOR EXAM: Male, 62 years old. Elevated PSA TECHNIQUE: Standardized multiparametric prostate MRI with T1, T2, DWI/ADC sequences were obtained in 3 orthogonal planes, and dynamic contrast enhancement sequences. 20CC CLARISCAN contrast material was administered intravenously for the contrast portion of the examination. COMPARISON: 05/23/2018 FINDINGS: The prostate volume measures 44.6 mm3. The contours of the prostate gland are smooth. There is not significant mass effect on the bladder base. The transition zone is homogenous. PI-RADS DWI score 2 - Hypointense within a BPH nodule on ADC. PI-RADS T2W score 2 - A mostly encapsulated nodule OR a homogeneous circumscribed nodule without encapsulation (atypical nodule) or a homogeneous mildly hypointense area between nodules.. Contrast enhancement no early or contemporaneous enhancement; or diffuse multifocal enhancement NOT corresponding to a focal finding on T2W and/or DWI or focal ehancement responding to a lesion demonstrating features of BPH onT2WI (including features of extruded BPH in the PZ). The peripheral zone is homogenous. PI-RADS DWI score 1 - No abnormality (normal) on ADC or high b-value DWI. PI-RADS T2W score 1 - Uniformaly hyperintense (normal). Contrast enhancement no early or contemporaneous enhancement; or diffuse multifocal enhancement NOT corresponding to a focal finding on T2W and/or DWI or focal enhancement responding to a lesion demonstrating features of BPH onT2WI (including features of extruded BPH in the PZ). The seminal vesicles demonstrate normal margins and T2 signal pattern. No mass lesion or invasion depicted. The rectoprostatic angles are normal. Urinary bladder is normal without wall thickening. The vascular structures of the are normal. The visualized hollow viscus structures are normal. No bone marrow edema or mass lesion depicted. Benign bone island of right ischium is stable since CT 05/23/2018. MRI/Pelvis W/WO Contrast IMPRESSION: 1. PIRADS v2.1 2019 -- 2 - Low (clinically significant cancer is unlikely). Electronically Signed: Keo Wallace (Brooks), at 8:41 EDT ,
[2022-11-17 18:20] LABS: EGFR FINGERSTICK > 60.0000 mL/min (>60)
== END | disposition home or self-care (01) ==
PROVIDERS: PCP Family Medicine; Visit Provider Registered Nurse
DX: R97.20 Elevated prostate specific antigen [PSA] (principal)
CPT/HCPCS: 72197; A9575

== ENCOUNTER → 2022-11-23 | Outpatient (CLI) | payer BC, SELFPAY ==
[2022-11-23 17:08] LABS: Basophil# 0.09 X10^3/uL; Basophil% 1.3 % (0-1); Eosinophil# 0.24 X10^3/uL; Eosinophils% 3.5 % (0-5); Hematocrit 41.7 % (40-54); Hemoglobin 13.1 g/dL (13.0-16.5); Lymphocyte % 24.6 % (19-41); Mean Corp Hgb Conc 31.4 g/dL (32-36); Mean Corpuscular Hgb 28.6 pg (27.0-32.0); Mean Platelet Vol. 9.9 fl (6.2-12.0); Monocyte# 0.81 X10^3/uL; Monocyte% 11.7 % (0-10); NRBC Flagged by Analyzer 0 % (0-5); Neutrophil # 4.03 X10^3/uL (2.7-7.7); Neutrophil % 58.2 % (47-70); Platelet Count 297 K/mm3 (150-450); RBC Distribution Width CV 13.4 % (11.6-14.6); RBC Distribution Width SD 45.1 fl (35.1-43.9); Red Blood Count 4.58 M/mm3 (4.6-6.2); White Blood Count 6.9 K/mm3 (4.4-11.0)
[2022-11-23 17:38] LABS: ALB/GLOB Ratio 1.3 RATIO (0.9-2.4); AST(SGOT) 22 U/L (15-37); Alanine Aminotransfer ALT/SGPT 40 U/L (16-61); Alkaline Phosphatase 59 U/L (45-117); Anion Gap 5 (5-15); BUN 22 mg/dL (7-18); BUN/Creat Ratio 20.2 RATIO (10-20); Calcium,Total 8.9 mg/dL (8.5-10.1); Chloride 103 mmol/L (98-107); Creatinine, Serum 1.09 mg/dL (0.70-1.30); EST Glomerular Filtration Rate 73 mL/min (>60); Est Glom Filt Rate - Afr Amer 88 mL/min (>60); Globulin 3.1 g/dL (2.2-4.2); Glucose 118 mg/dL (74-106); Potassium 3.7 mmol/L (3.5-5.1); Protein, Total 7.1 g/dL (6.4-8.2); Sodium Level 137 mmol/L (136-145)
== END | disposition home or self-care (01) ==
LOC: LAB 16:46
PROVIDERS: PCP Family Medicine; Visit Provider Internal Medicine Rheumatology
DX: L40.59 Other psoriatic arthropathy (principal); Z79.899 Other long term (current) drug therapy
CPT/HCPCS: 36415; 80053; 85025

== ENCOUNTER → 2023-05-14 | Outpatient (CLI) | payer BC, SELFPAY ==
[2023-05-14 09:41] LABS: Absolute Lymphocyte Count 1.46 X10^3/uL (0.83-4.51); Absolute Neutrophil Count 3.4 X10^3/uL (2.0-7.7); Basophil# 0.08 X10^3/uL; Basophil% 1.3 % (0-1); Eosinophil# 0.35 X10^3/uL; Eosinophils% 5.9 % (0-5); Hematocrit 39.3 % (40-54); Hemoglobin 12.7 g/dL (13.0-16.5); Lymphocyte # 1.46 X10^3/ul (0.83-4.51); Lymphocyte % 24.4 % (19-41); Mean Corp Hgb Conc 32.3 g/dL (32-36); Mean Corpuscular Hgb 27.5 pg (27.0-32.0); Mean Corpuscular Volume 85.1 fL (80-94); Mean Platelet Vol. 10.3 fl (6.2-12.0); Monocyte# 0.59 X10^3/uL; Monocyte% 9.9 % (0-10); NRBC Flagged by Analyzer 0 % (0-5); Neutrophil # 3.37 X10^3/uL (2.7-7.7); Neutrophil % 56.3 % (47-70); Platelet Count 308 K/mm3 (150-450); RBC Distribution Width CV 13.6 % (11.6-14.6); RBC Distribution Width SD 41.9 fl (35.1-43.9); Red Blood Count 4.62 M/mm3 (4.6-6.2)
[2023-05-14 10:01] LABS: ALB/GLOB Ratio 1.1 RATIO (0.9-2.4); AST(SGOT) 18 U/L (15-37); Alanine Aminotransfer ALT/SGPT 36 U/L (16-61); Albumin, Serum 3.8 g/dL (3.2-5.0); Alkaline Phosphatase 95 U/L (45-117); Anion Gap 4 (5-15); BUN 14 mg/dL (7-18); BUN/Creat Ratio 12.4 RATIO (10-20); Calcium,Total 8.8 mg/dL (8.5-10.1); Chloride 102 mmol/L (98-107); Creatinine, Serum 1.13 mg/dL (0.70-1.30); EST Glomerular Filtration Rate 70 mL/min (>60); Est Glom Filt Rate - Afr Amer 84 mL/min (>60); Globulin 3.4 g/dL (2.2-4.2); Glucose 252 mg/dL (74-106); Potassium 3.4 mmol/L (3.5-5.1); Protein, Total 7.2 g/dL (6.4-8.2); Sodium Level 135 mmol/L (136-145)
== END | disposition home or self-care (01) ==
LOC: LAB 08:52
PROVIDERS: PCP Family Medicine; Referring Provider Internal Medicine Rheumatology; Visit Provider Internal Medicine Rheumatology
DX: L40.59 Other psoriatic arthropathy (principal); L40.8 Other psoriasis; Z79.899 Other long term (current) drug therapy
CPT/HCPCS: 36415; 80053; 85025

== ENCOUNTER → 2023-12-15 | Outpatient (CLI) | payer BC, SELFPAY ==
[2023-12-15 17:14] LABS: PSA,Total- Diagnostic 3.65 ng/mL (0.0-4.0)
== END | disposition home or self-care (01) ==
PROVIDERS: PCP Family Medicine; Referring Provider Urology; Visit Provider Urology
DX: R97.20 Elevated prostate specific antigen [PSA] (principal)
CPT/HCPCS: 36415; 84153

== ENCOUNTER 2024-04-04 17:30 | Outpatient (RCR) | payer SELFPAY | END 2024-04-04 23:59 | LOC: NS 17:30 | PROVIDERS: PCP Family Medicine | DX: Z71.3 Dietary counseling and surveillance (principal) ==

== ENCOUNTER → 2024-04-07 | Outpatient (CLI) | payer BC, SELFPAY ==
[2024-04-07 08:27] LABS: Microalbumin,Random Urine 43.3 mg/L (NO RANGE EST.); Microalbumin:Creatinine Ratio 124.4 mg/g CRE (<30 mg/g CRE)
[2024-04-07 08:33] LABS: ALB/GLOB Ratio 1.2 RATIO (0.9-2.4); AST(SGOT) 31 U/L (15-37); Alanine Aminotransfer ALT/SGPT 58 U/L (16-61); Albumin, Serum 4.1 g/dL (3.2-5.0); Alkaline Phosphatase 69 U/L (45-117); Anion Gap 5 (5-15); BUN 17 mg/dL (7-18); Calcium,Total 8.8 mg/dL (8.5-10.1); Chloride 107 mmol/L (98-107); Cholesterol 109 mg/dL (200); Creatinine, Serum 1.21 mg/dL (0.70-1.30); EST Glomerular Filtration Rate 64 mL/min (>60); Est Glom Filt Rate - Afr Amer 78 mL/min (>60); Free T3 1.5 pg/mL (2.18-3.98); Globulin 3.3 g/dL (2.2-4.2); Glucose 103 mg/dL (74-106); High Density Lipoprotein 35 mg/dL; Potassium 3.4 mmol/L (3.5-5.1); Protein, Total 7.4 g/dL (6.4-8.2); Sodium Level 141 mmol/L (136-145); T4 Free Direct 0.91 ng/dL (0.76-1.46); Triglycerides 196 mg/dL; Very Low Density Lipoprotein 39 mg/dL (5-40)
[2024-04-10 11:09] LABS: Testosterone, % Free 4.13 % (1.50-4.20); Testosterone, Free 9.71 ng/dL (5.00-21.00); Testosterone, Total 235 ng/dL (264-916)
== END | disposition home or self-care (01) ==
LOC: LAB 07:38
PROVIDERS: PCP Family Medicine; Referring Provider Internal Medicine Endocrinology, Diabetes & Metabolism; Visit Provider Internal Medicine Endocrinology, Diabetes & Metabolism
DX: E11.65 Type 2 diabetes mellitus with hyperglycemia (principal); E66.01 Morbid (severe) obesity due to excess calories; E78.2 Mixed hyperlipidemia; E29.1 Testicular hypofunction; E27.49 Other adrenocortical insufficiency; I10 Essential (primary) hypertension; Z68.38 Body mass index [BMI] 38.0-38.9, adult
CPT/HCPCS: 36415; 80053; 80061; 82043; 82570; 83001; 83002; 84402; 84403; 84439; 84481

== ENCOUNTER → 2024-04-28 | Outpatient (CLI) | payer BC, SELFPAY ==
[2024-04-28 09:41] LABS: Absolute Lymphocyte Count 1.75 X10^3/uL (0.83-4.51); Absolute Neutrophil Count 2.6 X10^3/uL (2.0-7.7); Basophil# 0.08 X10^3/uL; Basophil% 1.5 % (0-1); Eosinophils% 3.8 % (0-5); Hematocrit 37.1 % (40-54); Hemoglobin 11.8 g/dL (13.0-16.5); Lymphocyte # 1.75 X10^3/ul (0.83-4.51); Lymphocyte % 33.2 % (19-41); Mean Corp Hgb Conc 31.8 g/dL (32-36); Mean Corpuscular Hgb 29.1 pg (27.0-32.0); Mean Corpuscular Volume 91.6 fL (80-94); Mean Platelet Vol. 9.6 fl (6.2-12.0); Monocyte# 0.62 X10^3/uL; Monocyte% 11.8 % (0-10); NRBC Flagged by Analyzer 0 % (0-5); Neutrophil # 2.55 X10^3/uL (2.7-7.7); Neutrophil % 48.4 % (47-70); Platelet Count 261 K/mm3 (150-450); RBC Distribution Width CV 14.6 % (11.6-14.6); RBC Distribution Width SD 48.9 fl (35.1-43.9); Red Blood Count 4.05 M/mm3 (4.6-6.2); White Blood Count 5.3 K/mm3 (4.4-11.0)
== END | disposition home or self-care (01) ==
LOC: LAB 09:18
PROVIDERS: PCP Family Medicine; Referring Provider Internal Medicine Rheumatology; Visit Provider Internal Medicine Rheumatology
DX: D64.9 Anemia, unspecified (principal)
CPT/HCPCS: 36415; 85025

== ENCOUNTER → 2024-06-09 | Outpatient (CLI) | payer BC, SELFPAY ==
[2024-06-09 09:01] LABS: Platelet Count 262 K/mm3 (150-450)
== END | disposition home or self-care (01) ==
LOC: LAB 08:47
PROVIDERS: PCP Family Medicine; Referring Provider Internal Medicine Rheumatology; Visit Provider Internal Medicine Rheumatology
DX: D69.6 Thrombocytopenia, unspecified (principal)
CPT/HCPCS: 36415; 85049

== ENCOUNTER 2024-06-18 06:09 | Day surgery (SDC) | payer BC, SELFPAY ==
[2024-06-18] VITALS (9 sets, daily range): BP systolic 83–129; BP diastolic 55–73; PULSE 64–70; RESP 12–18; TEMP 36.1–36.4; O2SAT 90–97; BMI 36.6
--- NOTE | 2024-06-18 06:42 | PCM.HP.STD ---
HPI - General General Date of Admission: 06/18/24 Date of Service: 06/18/24 Chief Complaint: Personal history of polyps HPI Narrative MYRANDA OLEA, is a 63 M who presents today for follow-up colonoscopy. He had a colonoscopy back in 2020. He had multiple adenomatous polyps with only a fair prep during that time. He also has a history of chronic pancreatitis and eosinophilic esophagitis. He is not have any other problems at this time. [facility] Medical History Mixed hyperlipidemia Secondary male hypogonadism Secondary adrenal insufficiency Uncontrolled hypertension Acute sinusitis, unspecified Diabetes Secondary hypothyroidism Pancreatic calcification Wears glasses Diabetes Thyroid disease Rheumatoid arthritis Bladder disease Anemia Excessive bleeding Back pain Non-smoker CPAP (continuous positive airway pressure) dependence Leg cramps Hypertension History of colon polyps Chronic pancreatitis Lactose intolerance DJD (degenerative joint disease), lumbar Eosinophilic esophagitis Hypertriglyceridemia Bilateral cataracts Seasonal allergies Anemia Segmental and somatic dysfunction of lumbar region Segmental and somatic dysfunction of thoracic region Segmental and somatic dysfunction of cervical region Acute cholecystitis Obesity Hypertension Rheumatoid arthritis Home Medications ?Medication ?Instructions ?Recorded ?Last Taken ?Type carvedilol 25 mg tablet 25 mg PO BID 12/22/15 06/18/24 History finasteride 5 mg tablet 5 mg PO DAILY 12/22/15 06/17/24 History hydralazine 100 mg tablet 100 mg PO TID 12/22/15 06/18/24 History lisinopril 40 mg tablet 40 mg PO DAILY 12/22/15 06/18/24 History multivitamin 1 tab PO DAILY 08/19/17 06/17/24 History hydrocortisone 2.5 % topical cream 1 applic topical BID PRN Skin 05/25/21 Unknown History Cleansing ketoconazole 2 % shampoo 1 applic topical QODAY 05/25/21 06/16/24 History oxybutynin chloride 10 mg 10 mg PO DAILY 05/25/21 06/17/24 History tablet,extended release 24 hr cholecalciferol (vitamin D3) 25 25 mcg PO DAILY 12/10/22 06/17/24 History mcg (1,000 unit) capsule blood sugar diagnostic ([employer] #100 ea 06/30/23 Unknown Rx Verio test strips) blood-glucose meter ([employer] #1 ea 06/30/23 Unknown Rx Verio Reflect Meter) lancets 33 gauge ([employer] #100 ea 07/05/23 Unknown Rx Plus Lancet) sulfasalazine 500 mg 1,000 mg PO BID 12/15/23 06/17/24 History tablet,delayed release Trulicity 1.5 mg/0.5 mL 1.5 mg (0.5 mL) subcut QWEEK #2 mL 03/29/24 06/06/24 Rx subcutaneous pen injector (dulaglutide) atorvastatin 20 mg tablet 20 mg PO QPM #90 tabs 03/29/24 06/17/24 Rx clonidine HCl 0.3 mg tablet 0.3 mg PO TID 03/29/24 06/18/24 History hydrocortisone 10 mg tablet 10 mg PO TID #270 tabs 03/29/24 06/17/24 Rx levothyroxine 75 mcg tablet 75 mcg PO DAILY 06/14/24 06/18/24 History levothyroxine 75 mcg tablet 150 mcg PO CLEARY 06/14/24 06/17/24 History (Euthyrox) Allergy/AdvReac Type Severity Reaction Status Date / Time diltiazem (From Cardizem) Allergy Unknown PT UNSURE Verified 06/18/24 06:29 OF REACTION Family History Mother Cancer Hypertension Father Diabetes Surgical History History of pituitary surgery History of esophagogastroduodenoscopy (EGD) (~05/29/18) S/P colonoscopy (~05/29/18) History of esophagogastroduodenoscopy (EGD) Hx of tonsillectomy Hx of colonoscopy Hx of cholecystectomy S/P cholecystectomy Social History household members: spouse current occupational status: employed current occupation: [employer] Smoking Status: Never smoker substance use type: does not use ROS Review of Systems ROS Unobtainable: other Constitutional Constitutional: Denies fatigue, fever(s), poor appetite, weight gain or weight loss ENT HEENT: Denies mouth lesions Cardiovascular Cardiovascular: Denies abdominal bloating, abdominal edema or abdominal pain Respiratory/Chest Respiratory/Chest: Denies change in mental status, change in phlegm color, chest congestion or chest tightness Gastrointestinal Gastrointestinal: Denies belching, bloating, change in bowel habits, change in stool character, chewing difficulty, coffee ground emesis, constipation, cramping, diarrhea, dyspepsia, dysphagia, early satiety, excessive flatus, fecal incontinence, heartburn, hematemesis, hematochezia, hemorrhoids, loose stools, melena, nausea, odynophagia, rectal bleeding, tenesmus, vomiting or weight changes Genitourinary Genitourinary: Denies abdominal discomfort, burning urination or itching Musculoskeletal Musculoskeletal: Reports as per HPI; Denies muscle weakness or myalgias Integumentary Integumentary: Denies jaundice Neurologic Neurologic: Denies lack of coordination or weakness Psychiatric Psychiatric: Denies confusion, depression, memory loss, mood swings, paranoia or suicidal ideation Endocrine Endocrinology: Denies systems reviewed and no addt'l complaints, except as documented Hematologic/Lymphatic Hematologic/Lymphatic: Denies anemia, easy bleeding, easy bruising or lymphadenopathy Allergic/Immunologic Allergic/Immunologic: Denies systems reviewed and no addt'l complaints, except as documented Vital Signs Vital Signs Vital Signs: 06/18/24 06:31 06/18/24 06:31 Temperature 97.0 F L Temperature Source Temporal Pulse Rate 64 Respiratory Rate 12 Respiratory Pattern Normal Blood Pressure 129/73 H Blood Pressure Mean 91 Blood Pressure Source Monitor Blood Pressure Position Semi-Fowlers Blood Pressure Location Left Arm Pulse Ox 97 Oxygen Delivery Method Room Air Weight Weight: 230 lb 2.601 oz Body Mass Index (BMI) 36.6 Physical Exam Const alert General Appearance: cooperative Orientation / Consciousness: oriented to person HEENT hearing grossly normal bilaterally Head and Scalp: normal to inspection Face and Sinus: face symmetric Nose: external nose normal Mouth: oral and palatal mucosa normal Eyes conjunctivae normal General Eye: normal appearance of both eyes Neck full ROM General: normal visual inspection Lymph Lymphatic: no lymphadenopathy noted Chest inspection of chest normal and palpation of chest normal Chest: symmetrical chest wall rise Resp normal respiratory effort Effort and Inspection: able to speak in complete sentences Cardio regular rate GI non-distended Percussion: normal to percussion Rectal Exam: deferred Neuro Speech: speech normal Gait (Neuro): normal gait Assessment & Plan Assessment/Plan (1) Encounter for screening for malignant neoplasm of colon: PLAN: He was explained alternatives including not withstanding bleeding, infection, sepsis, perforation, need for emergent urgent . He will have an ASA of 3.
--- NOTE | 2024-06-18 06:46 | PRE.ANES_ITS ---
ASA Classification* ASA Classification ASA Classification: 3 Assessment & Plan Anesthesia* Anesthesia Assessment Anesthesia Assessment: Discussed sedation and/or anesthesia options, risks, benefits, and alternatives with patient/parents/legal guardian/POA. Questions invited. The patient/parents/legal guardian/POA seems to understand and agrees to proceed with anesthesia plan. Reviewed the physical assessment, medical history, allergy history and patient home medications list prior to surgery/procedure/anesthetic and documented any changes. Performed airway and anesthesia risk assessments. Anesthesia Type Anesthesia Type: MAC Anesthesia Focused Assessment* Temperature: 97.0 F Pulse Rate: 64 Blood Pressure: 129/73 Respiratory Rate: 12 Pulse Ox: 97 Airway Assessment Mouth opens: >3 cm Mallampati Score: II Focused Labs Anesthesia Preop lab: CBC WBC 5.3 K/mm3 (4.4-11.0) 04/28/24 09:30 RBC 4.05 M/mm3 (4.6-6.2) L 04/28/24 09:30 Hgb 11.8 g/dL (13.0-16.5) L 04/28/24 09:30 Hct 37.1 % (40-54) L 04/28/24 09:30 Plt Count 262 K/mm3 (150-450) 06/09/24 08:51 CHEMISTRY Potassium 3.4 mmol/L (3.5-5.1) L 04/07/24 07:40 Sodium 141 mmol/L (136-145) 04/07/24 07:40 Magnesium 2.1 mg/dL (1.8-2.4) 12/24/15 07:15 BUN 17 mg/dL (7-18) 04/07/24 07:40 Creatinine 1.21 mg/dL (0.70-1.30) 04/07/24 07:40 Glucose 125 mg/dL (74-106) H 06/14/24 07:21 TSH 2.01 uIU/mL (0.358-3.74) 07/28/22 09:32 COAG PT 16.1 SECONDS (11.7-14.9) H 12/23/15 05:34 Pre-Assessment Diagnosis/Proposed Procedure Planned Operative Procedure(s): COLONOSCOPY Anesthesia History 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 When Was Last Pacemaker Check QUESTION #4 FULL TEXT: You/Your Family Experience fever (hyperthermia) with Anesthesia Last Oral Intake Last Oral intake: Last Oral Intake NPO since 03:15 06/18/24 06:31 Meds taken in AM with sips of Yes 06/18/24 06:31 water? Meds patient instructed to take am of surgery PONV PONV - web development intern: PONV - web development intern Female No 06/14/24 10:55 HX of Motion Sickness No 06/14/24 10:55 HX of N/V After Surgery No 06/14/24 10:55 Non-Smoker Yes 06/14/24 10:55 Duration of Surgery greater No 06/14/24 10:55 than 60 minutes Number of Risk Factors 1 06/14/24 10:55 PONV Score Low Risk 06/14/24 10:55 Height & Weight Height & Weight: Anesthesia: Height & Weight Height 5 ft 6.5 in 06/18/24 06:31 Weight: 104.4 kg 06/18/24 06:31 Body Mass Index (BMI) 36.6 06/18/24 06:31 Respiratory Assessment Respiratory Assessment - web development intern: Respiratory Tract Infection Hx - web development intern Hx Respiratory Tract Infection No 06/14/24 10:55 STOP Sleep Apnea STOP Sleep Apnea - web development intern: STOP Sleep Apnea - web development intern Hx Hypertension Yes: BP FLUCUATES 06/14/24 10:55 Hx Sleep Apnea Yes 06/14/24 10:55 CPAP No 06/14/24 10:55 BIPAP Yes 06/14/24 10:55 Do you snore loudly (louder than talking or can be heard Do you often feel tired/ fatigued/ sleepy during daytime? Has anyone observed you stop breathing during sleep? STOP Results Positive 06/14/24 10:55 QUESTION #5 FULL TEXT : Do you snore loudly (louder than talking or can be heard through closed doors)? Tobacco Use History Tobacco Use History - web development intern: Tobacco Use History - web development intern Tobacco Use Smoking Status Never smoker 06/14/24 10:55 Hx Tobacco Use No 06/14/24 10:55 Years Smoking Packs Smoked per Day Smoking Cessation Date was within the last 15 years Hx Smoking Cessation Date Hx Smoking Cessation Counseling Hematologic Medial History Hematologic Hx - web development intern: Hematologic Medical Hx - environmental safety specialist Hx of Blood Transfusion No 06/14/24 10:55 Hx of Transfusion in last 3 No 06/14/24 10:55 Months Date of Last Transfusion (if within last 3 months) Ever experience any problems No 06/14/24 10:55 with transfusion(s)? Specify any problems Hx of Preganancy in last 3 N/A 06/14/24 10:55 Months Nurse Filling Out Transfusion [email or web address] 06/14/24 10:55 & Questions: Date: 06/14/24 06/14/24 10:55 Time: 10:58 06/14/24 10:55 Patient unable to answer at this time (ie. confused, unrespo /Reproduction History /Reproductive History - web development intern: /Reproductive Hx- web development intern Hx Now Gestational Age (in weeks): EDC: Hx Hx Para Hx Section SAB No 03/31/23 15:51 PFSH Medical History Mixed hyperlipidemia Secondary male hypogonadism Secondary adrenal insufficiency Uncontrolled hypertension Acute sinusitis, unspecified Diabetes Secondary hypothyroidism Pancreatic calcification Wears glasses Diabetes Thyroid disease Rheumatoid arthritis Bladder disease Anemia Excessive bleeding Back pain Non-smoker CPAP (continuous positive airway pressure) dependence Leg cramps Hypertension History of colon polyps Chronic pancreatitis Lactose intolerance DJD (degenerative joint disease), lumbar Eosinophilic esophagitis Hypertriglyceridemia Bilateral cataracts Seasonal allergies Anemia Segmental and somatic dysfunction of lumbar region Segmental and somatic dysfunction of thoracic region Segmental and somatic dysfunction of cervical region Acute cholecystitis Obesity Hypertension Rheumatoid arthritis Home Medications ?Medication ?Instructions ?Recorded ?Last Taken ?Type carvedilol 25 mg tablet 25 mg PO BID 12/22/15 06/18/24 History finasteride 5 mg tablet 5 mg PO DAILY 12/22/15 06/17/24 History hydralazine 100 mg tablet 100 mg PO TID 12/22/15 06/18/24 History lisinopril 40 mg tablet 40 mg PO DAILY 12/22/15 06/18/24 History multivitamin 1 tab PO DAILY 08/19/17 06/17/24 History hydrocortisone 2.5 % topical cream 1 applic topical BID PRN Skin 05/25/21 Unknown History Cleansing ketoconazole 2 % shampoo 1 applic topical QODAY 05/25/21 06/16/24 History oxybutynin chloride 10 mg 10 mg PO DAILY 05/25/21 06/17/24 History tablet,extended release 24 hr cholecalciferol (vitamin D3) 25 25 mcg PO DAILY 12/10/22 06/17/24 History mcg (1,000 unit) capsule blood sugar diagnostic (OneTouch #100 ea 06/30/23 Unknown Rx Verio test strips) blood-glucose meter (OneTouch #1 ea 06/30/23 Unknown Rx Verio Reflect Meter) lancets 33 gauge (OneTouch Delica #100 ea 07/05/23 Unknown Rx Plus Lancet) sulfasalazine 500 mg 1,000 mg PO BID 12/15/23 06/17/24 History tablet,delayed release Trulicity 1.5 mg/0.5 mL 1.5 mg (0.5 mL) subcut QWEEK #2 mL 03/29/24 06/06/24 Rx subcutaneous pen injector (dulaglutide) atorvastatin 20 mg tablet 20 mg PO QPM #90 tabs 03/29/24 06/17/24 Rx clonidine HCl 0.3 mg tablet 0.3 mg PO TID 03/29/24 06/18/24 History hydrocortisone 10 mg tablet 10 mg PO TID #270 tabs 03/29/24 06/17/24 Rx levothyroxine 75 mcg tablet 75 mcg PO DAILY 06/14/24 06/18/24 History levothyroxine 75 mcg tablet 150 mcg PO CLEARY 06/14/24 06/17/24 History (Euthyrox) Allergy/AdvReac Type Severity Reaction Status Date / Time diltiazem (From Cardizem) Allergy Unknown PT UNSURE Verified 06/18/24 06:29 OF REACTION Family History Mother Cancer Hypertension Father Diabetes Surgical History History of pituitary surgery History of esophagogastroduodenoscopy (EGD) (~05/29/18) S/P colonoscopy (~05/29/18) History of esophagogastroduodenoscopy (EGD) Hx of tonsillectomy Hx of colonoscopy Hx of cholecystectomy S/P cholecystectomy Social History household members: spouse current occupational status: employed current occupation: [employer] Smoking Status: Never smoker substance use type: does not use Review of Systems (Anesthesia) ROS Narrative System reviewed and no additional complaints, except as documented.
--- NOTE | 2024-06-18 07:15 | COLBX_PTH ---
PATIENT: MYRANDA OLEA LOC: EN U#:[id number] AGE/SX: 63/M ROOM: RE06/18/[address]: Dr. Mitchel Zuniga DO : 1960 BED: DIS: 06/18/2024 SPEC #: [id number] RECD: 06/18/24 11:33 STATUS: GERMAIN RENickolas #: [id number] MIGUEL: 06/18/24 07:[address]: Mitchel Zuniga DEPT: SURGICAL PATHOLOGY RECD BY: Magaly Abdul ENTERED: 06/18/24 13:25 SP TYPE: COLON BX OTHR DR: Dr. William Amado DO Tissues: A - Transverse colon B - COLON BIOPSY C - Descending colon D - Rectum, NOS Procedures: Surgery Specimen Level IV HEADER OPERATION: Colonoscopy with biopsy of polyp PRE-OP DIAGNOSIS: Personal history of polyps TISSUE SUBMITTED: A- Transverse colon polyp biopsy, B- Splenic flexure polyp biopsy, C- Descending colon polyp biopsy, D- Rectum polyp biopsy MICROSCOPIC DIAGNOSIS A. Transverse colon polyp, biopsy: Fragments of tubular adenoma. Fragments of fecal material. B. Splenic flexure polyp, biopsy: Hyperplastic polyp. Fragments of fecal material. C. Descending colon polyp, biopsy: Tubular adenoma. D. Rectum polyp, biopsy: Inflammatory polyp. 06/19/2024 MICROSCOPIC DESCRIPTION Slides are reviewed. GROSS DESCRIPTION A. Received in fixative is one container labeled with the patient's name and designated Transverse colon polyp biopsy. The specimen consists of multiple irregular fragments of light dsouza soft tissue that in aggregate measure 2.5 x 1.0 x 0.3 cm. The specimen is totally submitted in one cassette. B. Received in fixative is one container labeled with the patient's name and designated Splenic flexure polyp biopsy. The specimen consists of multiple irregular fragments of light dsouza soft tissue mixed with fecal material that in aggregate measure 1.0 x 0.5 x 0.1 cm. The specimen is totally submitted in one cassette. C. Received in fixative is one container labeled with the patient's name and designated Descending colon polyp biopsy. The specimen consists of one irregular fragment of light dsouza soft tissue that measures 0.3 x 0.3 x 0.1 cm. The specimen is totally submitted in one cassette. D. Received in fixative is one container labeled with the patient's name and designated Rectum polyp biopsy. The specimen consists of one irregular fragment of light dsouza soft tissue that measures 0.3 x 0.3 x 0.1 cm. The specimen is totally submitted in one cassette. SJCarlosmr 06/18/2024 TC:1 CPT:98877b5
[2024-06-18 07:30] LABS: Bedside Glucose 108 mg/dL (74-106)
--- NOTE | 2024-06-18 08:00 | OP.CCLET_ITS ---
06/18/2024 William Amado Re : Colonoscopy procedure for Sunny Morrison Dear Aneudy This procedure was performed on Tuesday, June 18, 2024. My impressions and recommendations are as follows: Impressions : - Diverticulosis in the recto-sigmoid colon and in the sigmoid colon. - Four 1 to 2 mm polyps in the rectum, in the sigmoid colon, in the descending colon and in the transverse colon, removed with a cold snare. Resected and retrieved. - One 3 mm polyp in the sigmoid colon, removed with a jumbo cold forceps. Resected and retrieved. - Stool in the cecum. Recommendations : - Discharge patient to home. - Resume previous diet. - Continue present medications. - Await pathology results. - Repeat colonoscopy in 3 years for surveillance. My findings are described in the full procedure note, which is enclosed. If I can be of further assistance, please feel free to contact me at . Sincerely, Mitchel Zuniga, 06/18/2024 8:00:17 AM This report has been signed electronically.
--- NOTE | 2024-06-18 08:00 | OP.COLON_ITS ---
Patient Name: Sunny Morrison Procedure Date: 06/18/2024 7:18 AM Date of : 1960 Age: 63 Procedure: Colonoscopy Indications: High risk colon cancer surveillance: Personal history of colonic polyps Providers: Mitchel Zuniga DO Referring MD: William Amado Medicines: Monitored Anesthesia Care Patient Profile: This is a 63 year old male. Refer to note in patient chart for documentation of history and physical. Last Colonoscopy: more than 3 years ago. Complications: No immediate complications. Procedure: Pre-Anesthesia Assessment: - Prior to the procedure, a History and Physical was performed, and patient medications and allergies were reviewed. The patient is competent. The risks and benefits of the procedure and the sedation options and risks were discussed with the patient. All questions were answered and informed consent was obtained. Patient identification and proposed procedure were verified by the physician in the pre-procedure area. Mental Status Examination: alert and oriented. Airway Examination: normal oropharyngeal airway and neck mobility. Respiratory Examination: clear to auscultation. CV Examination: normal. Prophylactic Antibiotics: The patient does not require prophylactic antibiotics. Prior Anticoagulants: The patient has taken no anticoagulant or antiplatelet agents except for NSAID medication. ASA Grade Assessment: II - A patient with mild systemic disease. After reviewing the risks and benefits, the patient was deemed in satisfactory condition to undergo the procedure. The anesthesia plan was to use monitored anesthesia care (MAC). Immediately prior to administration of medications, the patient was re-assessed for adequacy to receive sedatives. The heart rate, respiratory rate, oxygen saturations, blood pressure, adequacy of pulmonary ventilation, and response to care were monitored throughout the procedure. The physical status of the patient was re-assessed after the procedure. After I obtained informed consent, the scope was passed under direct vision. Throughout the procedure, the patient's blood pressure, pulse, and oxygen saturations were monitored continuously. The pediatric colonoscope was introduced through the anus and advanced to the cecum, identified by the ileocecal valve. The colonoscopy was performed without difficulty. The patient tolerated the procedure well. The quality of the bowel preparation was adequate. Scope In: 7:29:12 AM Scope Withdrawal Time 0 hours 15 minutes 49 seconds Scope Out: 7:52:38 AM Total Procedure Duration Time 0 hours 23 minutes 26 seconds Findings: The perianal and digital rectal examinations were normal. Multiple small and large-mouthed diverticula were found in the recto-sigmoid colon and sigmoid colon. Four sessile polyps were found in the rectum, sigmoid colon, descending colon and transverse colon. The polyps were 1 to 2 mm in size. These polyps were removed with a cold snare. Resection and retrieval were complete. Verification of patient identification for the specimen was done. Estimated blood loss was minimal. A 3 mm polyp was found in the sigmoid colon. The polyp was sessile. The polyp was removed with a jumbo cold forceps. Resection and retrieval were complete. Verification of patient identification for the specimen was done. Estimated blood loss was minimal. Stool was found in the cecum, precluding visualization. Impression: - Diverticulosis in the recto-sigmoid colon and in the sigmoid colon. - Four 1 to 2 mm polyps in the rectum, in the sigmoid colon, in the descending colon and in the transverse colon, removed with a cold snare. Resected and retrieved. - One 3 mm polyp in the sigmoid colon, removed with a jumbo cold forceps. Resected and retrieved. - Stool in the cecum. Recommendation: - Discharge patient to home. - Resume previous diet. - Continue present medications. - Await pathology results. - Repeat colonoscopy in 3 years for surveillance. Procedure Code(s): --- Professional --- 78431, Colonoscopy, flexible; with removal of tumor(s), polyp(s), or other lesion(s) by snare technique 05864, 59, Colonoscopy, flexible; with biopsy, single or multiple CPT copyright 2021 [employer]. All rights reserved. The codes documented in this report are preliminary and upon interactive media marketing strategist review may be revised to meet current compliance requirements. Mitchel Zuniga DO 06/18/2024 8:00:17 AM This report has been signed electronically. Number of Addenda: 0 Note Initiated On: 06/18/2024 7:18 AM
--- NOTE | 2024-06-18 08:01 | PCM.POST.ANE ---
Anesthesia: Postop Eval I Current Vital Signs Temperature: 97.2 F Pulse Rate: 67 Blood Pressure: 93/59 Respiratory Rate: 16 Pulse Ox: 91 Oxygen Delivery Method: Room Air Assessment Airway patent: Yes Spontaneous unlabored respirations: Yes Mental status: Asleep nausea: No Vomiting: No Anesthesia Complication: No Fluid Hydration Crystalloid volume administer (ml): 30 Total IV fluid infused: 30 Progress Note Anesthesia document: Postop Eval 1 completed: Yes
--- NOTE | 2024-06-18 08:19 | PCM.POSTANE2 ---
Anesthesia Postop Eval I Sum Postop Eval Completion status Anesthesia document: Postop Eval 1 completed: Yes Anesthesia Postop Eval I Summary Anesthesia Postop Eval I Summary: Anesthesia Postop Eval I: Assessment Summary Airway patent Yes 06/18/24 08:02 [email or web address] Spontaneous unlabored Yes 06/18/24 08:02 [email or web address] respirations Mental status Asleep 06/18/24 08:02 [email or web address] nausea No 06/18/24 08:02 [email or web address] Vomiting No 06/18/24 08:02 [email or web address] Anesthesia Postop Eval I: Fluid Summary Crystalloid volume administer 30 06/18/24 08:02 [email or web address] (ml) Colloids volume administered ( ml) Blood Product volume administered (ml) Total IV fluid infused 30 06/18/24 08:02 [email or web address] Anesthesia Postop Eval I: Summary Notes Anesthesia Complication No 06/18/24 08:02 [email or web address] Anesthesia Complication Comment: Post-operative progress note Anesthesia: Postop Eval II Evaluation Mental status: Awake Pain Level: 0 nausea: No Vomiting: No
== END 2024-06-18 08:37 | disposition home or self-care (01) ==
LOC: EN 06:09 → AC 06:10
PROVIDERS: PCP Family Medicine; Referring Provider Family Medicine; Visit Provider Internal Medicine Gastroenterology
PROC: 0DJD8ZZ Inspection of Lower Intestinal Tract, Via Natural or Artificial Opening Endoscopic (ICD-10-PCS; CPT 45378; principal; 2024-06-18 07:10)
DX: Z12.11 Encounter for screening for malignant neoplasm of colon (principal); E11.9 Type 2 diabetes mellitus without complications; D12.3 Benign neoplasm of transverse colon; D12.4 Benign neoplasm of descending colon; K57.30 Diverticulosis of large intestine without perforation or abscess without bleeding; I10 Essential (primary) hypertension; K62.1 Rectal polyp; K63.5 Polyp of colon; E78.2 Mixed hyperlipidemia; Z79.85 Long-term (current) use of injectable non-insulin antidiabetic drugs; Z79.890 Hormone replacement therapy; Z79.899 Other long term (current) drug therapy; Z86.0100 Personal history of colon polyps, unspecified
CPT/HCPCS: 45380; 45385; 82962; 88305; A4216; J2405

== ENCOUNTER → 2024-08-03 | Outpatient (CLI) | payer BC, SELFPAY ==
[2024-08-03 10:40] LABS: Absolute Lymphocyte Count 2.28 X10^3/uL (0.83-4.51); Basophil# 0.13 X10^3/uL; Basophil% 1.7 % (0-1); Eosinophil# 0.22 X10^3/uL; Eosinophils% 2.9 % (0-5); Hematocrit 38.2 % (40-54); Hemoglobin 12.3 g/dL (13.0-16.5); Lymphocyte # 2.28 X10^3/ul (0.83-4.51); Lymphocyte % 30.3 % (19-41); Mean Corp Hgb Conc 32.2 g/dL (32-36); Mean Corpuscular Volume 90.1 fL (80-94); Mean Platelet Vol. 9.5 fl (6.2-12.0); Monocyte# 0.84 X10^3/uL; Monocyte% 11.2 % (0-10); NRBC Flagged by Analyzer 0 % (0-5); Neutrophil # 3.98 X10^3/uL (2.7-7.7); Neutrophil % 52.8 % (47-70); Platelet Count 309 K/mm3 (150-450); RBC Distribution Width CV 14.6 % (11.6-14.6); RBC Distribution Width SD 47.9 fl (35.1-43.9); Red Blood Count 4.24 M/mm3 (4.6-6.2); White Blood Count 7.5 K/mm3 (4.4-11.0)
[2024-08-03 11:08] LABS: Ferritin 104 ng/mL (26-388); Iron 53 ug/dL (65-175); Iron Binding Capacity,Total 306 ug/dL (250-450); PERCENT IRON SATURATION 17.3 % (15.0-55.0)
== END | disposition home or self-care (01) ==
PROVIDERS: PCP Family Medicine; Referring Provider Internal Medicine Rheumatology; Visit Provider Internal Medicine Rheumatology
DX: D64.9 Anemia, unspecified (principal)
CPT/HCPCS: 36415; 82728; 83540; 83550; 85025

== ENCOUNTER → 2024-09-15 | Outpatient (CLI) | payer BC, SELFPAY ==
[2024-09-15 11:00] LABS: Absolute Lymphocyte Count 1.75 X10^3/uL (0.83-4.51); Absolute Neutrophil Count 2.6 X10^3/uL (2.0-7.7); Basophil% 1.9 % (0-1); Eosinophil# 0.21 X10^3/uL; Hematocrit 38.2 % (40-54); Hemoglobin 12.3 g/dL (13.0-16.5); Lymphocyte # 1.75 X10^3/ul (0.83-4.51); Mean Corp Hgb Conc 32.2 g/dL (32-36); Mean Corpuscular Hgb 28.3 pg (27.0-32.0); Mean Platelet Vol. 10.1 fl (6.2-12.0); Monocyte# 0.63 X10^3/uL; Monocyte% 11.9 % (0-10); NRBC Flagged by Analyzer 0 % (0-5); Neutrophil # 2.55 X10^3/uL (2.7-7.7); Neutrophil % 48.1 % (47-70); Platelet Count 261 K/mm3 (150-450); RBC Distribution Width CV 14.9 % (11.6-14.6); RBC Distribution Width SD 48.1 fl (35.1-43.9); Red Blood Count 4.34 M/mm3 (4.6-6.2); White Blood Count 5.3 K/mm3 (4.4-11.0)
== END | disposition home or self-care (01) ==
LOC: LAB 09:59
PROVIDERS: PCP Family Medicine; Referring Provider Internal Medicine Rheumatology; Visit Provider Internal Medicine Rheumatology
DX: D64.9 Anemia, unspecified (principal)
CPT/HCPCS: 36415; 85025

== ENCOUNTER → 2024-10-27 | Outpatient (CLI) | payer BC, SELFPAY ==
[2024-10-27 10:05] LABS: Absolute Lymphocyte Count 1.92 X10^3/uL (0.83-4.51); Absolute Neutrophil Count 2.3 X10^3/uL (2.0-7.7); Basophil# 0.11 X10^3/uL; Basophil% 2.1 % (0-1); Eosinophil# 0.18 X10^3/uL; Eosinophils% 3.5 % (0-5); Hematocrit 35.5 % (40-54); Hemoglobin 11.5 g/dL (13.0-16.5); Lymphocyte # 1.92 X10^3/ul (0.83-4.51); Lymphocyte % 37.5 % (19-41); Mean Corp Hgb Conc 32.4 g/dL (32-36); Mean Corpuscular Volume 89.4 fL (80-94); Mean Platelet Vol. 9.9 fl (6.2-12.0); Monocyte# 0.56 X10^3/uL; Monocyte% 10.9 % (0-10); NRBC Flagged by Analyzer 0 % (0-5); Neutrophil # 2.28 X10^3/uL (2.7-7.7); Neutrophil % 44.6 % (47-70); Platelet Count 258 K/mm3 (150-450); RBC Distribution Width CV 15.7 % (11.6-14.6); RBC Distribution Width SD 51.5 fl (35.1-43.9); Red Blood Count 3.97 M/mm3 (4.6-6.2); White Blood Count 5.1 K/mm3 (4.4-11.0)
[2024-10-27 10:36] LABS: ALB/GLOB Ratio 1.4 RATIO (0.9-2.4); Ferritin 99 ng/mL (26-388); Free T3 1.7 pg/mL (2.18-3.98); Globulin 2.9 g/dL (2.2-4.2); Iron 83 ug/dL (65-175); Iron Binding Capacity,Total 291 ug/dL (250-450); PERCENT IRON SATURATION 28.5 % (15.0-55.0); Protein, Total 6.9 g/dL (6.4-8.2); T4 Free Direct 0.99 ng/dL (0.76-1.46)
[2024-10-29 08:26] LABS: Vitamin B12 493 pg/mL (211-911); Vitamin D,25 Hydroxy 42.8 ng/mL
[2024-10-29 15:07] LABS: Folate, RBC (Hct) Test 35.4 % (37.5-51.0); Folates, RBC Test 1390 ng/mL (>498); PROEL- A/G Ratio 1.7 (0.7-1.7); PROEL- Albumin 4.1 g/dL (2.9-4.4); PROEL- Alpha-1 Globulin 0.1 g/dL (0.0-0.4); PROEL- Alpha-2 Globulin 0.5 g/dL (0.4-1.0); PROEL- Beta Globulin 0.8 g/dL (0.7-1.3); PROEL- Globulin, Total 2.4 g/dL (2.2-3.9); PROEL- TOTAL PROTEIN 6.5 g/dL (6.0-8.5); PROEL-M-Spike Not Observed g/dL (Not Observed)
== END | disposition home or self-care (01) ==
LOC: LAB 09:10
PROVIDERS: PCP Family Medicine; Referring Provider Family Medicine; Visit Provider Family Medicine
DX: D64.9 Anemia, unspecified (principal)
CPT/HCPCS: 36415; 82306; 82607; 82728; 82747; 83540; 83550; 84155; 84165; 84439; 84443; 84481; 85014; 85025

== ENCOUNTER → 2024-11-17 | Outpatient (CLI) | payer BC, SELFPAY ==
[2024-11-17 10:18] LABS: Creatinine, Serum 1.05 mg/dL (0.70-1.20); EST Glomerular Filtration Rate 79 (>60)
== END | disposition home or self-care (01) ==
LOC: LAB 09:36
PROVIDERS: PCP Family Medicine
DX: R76.0 Raised antibody titer (principal)
CPT/HCPCS: 36415; 82565

== ENCOUNTER → 2024-12-06 | Outpatient (CLI) | payer BC, SELFPAY | END | disposition home or self-care (01) | LOC: LABSPEC 09:59 | PROVIDERS: PCP Family Medicine; Referring Provider Internal Medicine Medical Oncology; Visit Provider Internal Medicine Medical Oncology | DX: D64.9 Anemia, unspecified (principal) | CPT/HCPCS: 82274 ==

== ENCOUNTER → 2024-12-29 | Outpatient (CLI) | payer BC, SELFPAY ==
[2024-12-29 11:18] LABS: PSA,Total- Diagnostic 4.07 ng/mL (0.00-4.00)
== END | disposition home or self-care (01) ==
LOC: LAB 09:45
PROVIDERS: PCP Family Medicine; Referring Provider Urology; Visit Provider Urology
DX: R97.20 Elevated prostate specific antigen [PSA] (principal)
CPT/HCPCS: 36415; 84153

== ENCOUNTER → 2025-01-04 | Outpatient (CLI) | payer BC, SELFPAY ==
--- NOTE | 2025-01-04 15:25 | CT_ITS ---
PROCEDURE: CT CHEST, ABD, PEL W/CONTRAST 01/04/2025 REASON FOR EXAM: HIGH SERUM ERYTHROPOIETIN-IV ONLY TECHNIQUE: Chest, abdomen and pelvis CT with intravenous contrast. Coronal and Sagittal reconstruction series were provided. One or more dose reduction techniques were used (e.g., Automated exposure control, adjustment of the mA and/or kV according to patient size, use of iterative reconstruction technique. PATIENT PREPARATION: Per protocol ORAL CONTRAST TYPE: None. CONTRAST: Isovue 370 VOLUME: 100mL RADIATION DOSE SUMMARY: CTDlvol: 75 mGy DLP: 2500 mGycm COMPARISON: CT abdomen pelvis 05/23/2018. FINDINGS: CT CHEST: Hardware: None. Lymph nodes: No axillary, mediastinal or hilar lymphadenopathy. Heart and Vasculature: The heart is normal in size without pericardial effusion. Mild coronary artery and thoracic aortic calcifications. The great vessels are normal in caliber. Lungs and Airways: The central airways are patent. Low lung volumes. Visualization is slightly limited by expiratory phase imaging. Trace right pleural effusion with adjacent linear atelectasis/scarring. No pneumothorax. Bones: Cervical and thoracic spondylosis with multilevel anterior bridging vertebral body osteophytes, compatible with DISH. CT ABDOMEN/PELVIS: Liver: Normal in size with scattered hypodensities, likely cysts. The major portal veins are patent. No biliary ductal dilation. Gallbladder: Prior cholecystectomy. Spleen: Normal size. Pancreas: Unremarkable pancreas. Adrenals: No adrenal mass. Kidneys: Small bilateral renal cysts and additional hypodensities. Bilateral lower pole renal calculi. No hydronephrosis. Bladder: Moderately distended and unremarkable. Reproductive Organs: Mildly enlarged prostate which indents the bladder base. Bowel: The bowel loops are nondilated. No ascites or pneumoperitoneum. Normal appendix. Lymph nodes: No suspicious lymphadenopathy. Vasculature: The aortoiliac vessels are normal in caliber with mild mixed atherosclerotic plaque. Bones/soft tissues: Thoracolumbar spondylosis and severe degenerative disc disease, greatest in the lumbar spine. Small fat containing inguinal hernias. CT/CT Chest, Abd, Pel w/Contrast IMPRESSION: CT chest: 1. Trace right pleural effusion and adjacent atelectasis. 2. Mild coronary artery calcifications. CT abdomen/pelvis: Tiny nonobstructing renal calculi. Reading Location: [facility]
[2025-01-04 16:07] LABS: Absolute Lymphocyte Count 1.63 X10^3/uL (0.83-4.51); Absolute Neutrophil Count 3.7 X10^3/uL (2.0-7.7); Basophil# 0.11 X10^3/uL; Basophil% 1.8 % (0-1); Eosinophil# 0.17 X10^3/uL; Eosinophils% 2.8 % (0-5); Hemoglobin 12.2 g/dL (13.0-16.5); Lymphocyte # 1.63 X10^3/ul (0.83-4.51); Lymphocyte % 26.6 % (19-41); Mean Corp Hgb Conc 32.1 g/dL (32-36); Mean Corpuscular Hgb 29.1 pg (27.0-32.0); Mean Corpuscular Volume 90.7 fL (80-94); Mean Platelet Vol. 9.9 fl (6.2-12.0); Monocyte# 0.52 X10^3/uL; Monocyte% 8.5 % (0-10); NRBC Flagged by Analyzer 0 % (0-5); Neutrophil # 3.66 X10^3/uL (2.7-7.7); Neutrophil % 59.6 % (47-70); Platelet Count 267 K/mm3 (150-450); RBC Distribution Width CV 14.2 % (11.6-14.6); RBC Distribution Width SD 46.6 fl (35.1-43.9); RET-HE 31.7 pg (30-35); Red Blood Count 4.19 M/mm3 (4.6-6.2); Reticulocyte Count 2.12 % (0.5-1.5); White Blood Count 6.1 K/mm3 (4.4-11.0)
[2025-01-04 16:30] LABS: Erythrocyte Sedimentation Rate 3 mm/hr (0-20)
[2025-01-04 16:35] LABS: ALB/GLOB Ratio 1.8 RATIO (0.9-2.4); AST(SGOT) 36 U/L (<=37); Alanine Aminotransfer ALT/SGPT 44 U/L (<=46); Albumin, Serum 4.8 g/dL (3.4-4.8); Alkaline Phosphatase 69 U/L (40-129); Anion Gap 12 (5-15); BUN 17 mg/dL (4-19); BUN/Creat Ratio 15.4 RATIO (10-20); Calcium,Total 9.3 mg/dL (7.6-11.0); Carbon Dioxide 26.1 mmol/L (21.0-32.0); Chloride 103 mmol/L (98-108); Creatinine, Serum 1.11 mg/dL (0.70-1.20); EST Glomerular Filtration Rate 74 (>60); Ferritin 123 ng/mL (37-417); Globulin 2.7 g/dL (2.2-4.2); Glucose 110 mg/dL (70-99); Potassium 3.8 mmol/L (3.3-5.1); Protein, Total 7.6 g/dL (5.9-8.4); Sodium Level 141 mmol/L (133-145); Total Bilirubin 0.83 mg/dL (0.00-1.30)
[2025-01-04 17:00] LABS: CRP < 3.00 mg/L (0.0-3.0); Iron 62 ug/dL (65-175); Iron Binding Capacity,Total 289 ug/dL (250-450); Iron Binding Capacity,Unsat 227 ug/dL (228-428); LDH 231 U/L (87-241); Magnesium 2.5 mg/dL (1.5-2.2); PERCENT IRON SATURATION 21.5 % (9-55); Phosphorus 3.3 mg/dL (2.7-4.5)
[2025-01-08 07:07] LABS: Deamidated Gliadin IgA 5 units (0-19); Deamidated Gliadin IgG 2 units (0-19); Endomysial Antibody IgA Negative (Negative); Erythropoietin 19.8 mIU/mL (2.6-18.5); Immunoglobulin A 178 mg/dL (61-437); t-Transglutaminase IgA <2 U/mL (0-3)
== END | disposition home or self-care (01) ==
LOC: CT 15:14
PROVIDERS: PCP Family Medicine; Referring Provider Internal Medicine Medical Oncology; Visit Provider Internal Medicine Medical Oncology
DX: R71.8 Other abnormality of red blood cells (principal); E61.1 Iron deficiency
CPT/HCPCS: 36415; 71260; 74177; 80053; 82668; 82728; 82784; 83516; 83540; 83550; 83615; 83735; 84100; 85025; 85045; 85652; 86140; 86255; Q9967; A4216

== ENCOUNTER 2025-03-01 05:55 | Day surgery (SDC) | payer BC, SELFPAY ==
[2025-03-01] VITALS (7 sets, daily range): BP systolic 110–160; BP diastolic 81–91; PULSE 61–90; RESP 16–20; TEMP 36.2–36.8; O2SAT 96–98; BMI 36.5
[2025-03-01 06:38] LABS: Bedside Glucose 108 mg/dL (74-106)
[2025-03-01] MEDS: Lactated Ringers 1,000 ML 15 ML IV (06:45)
== END 2025-03-01 08:33 | disposition home or self-care (01) ==
LOC: EN 05:56 → AC 06:01
PROVIDERS: PCP Family Medicine; Referring Provider Family Medicine; Visit Provider Internal Medicine Gastroenterology
PROC: 0DJ08ZZ Inspection of Upper Intestinal Tract, Via Natural or Artificial Opening Endoscopic (ICD-10-PCS; CPT 43235; principal; 2025-03-01 06:55)
DX: D50.9 Iron deficiency anemia, unspecified (principal); E11.43 Type 2 diabetes mellitus with diabetic autonomic (poly)neuropathy; E78.2 Mixed hyperlipidemia; I10 Essential (primary) hypertension; K90.0 Celiac disease; Z79.899 Other long term (current) drug therapy
CPT/HCPCS: 43239; 82962; 88305; J2405

== ENCOUNTER → 2025-04-27 | Outpatient (CLI) | payer BC, SELFPAY ==
--- OUTSIDE RECORDS SUMMARY | 2025-04-27 09:26 | XMS RPT_ITS | CCD ---
Author Organization [facility] Care Team Providers Care Journeyman Glazier Name Role Phone Zhane Jones Eugene F Primary Care Provider Dr. William Amado Primary Care Provider [phone] Dr. William Amado Referring Provider Ming, Dr. Steele Attending Provider 1([facility])- 25 Dr. William Amado Primary Care Provider Dr. William Amado Referring Provider Dr. Ivette Lai Attending Provider 1([facility])-[address] Monika Lovett Attending Provider Dr. William Amado Primary Care Provider Dr. William Amado Referring Provider [phone] Ivette Lai Attending Provider 1([facility])-22 25 LINDY Leon Attending Provider Dr. William Amado Primary Care Provider Dr. William Amado Referring Provider Dr. Ivette Lai Attending Provider 1([facility])-22 25 LINDY Leon Attending Provider Dr. William Amado Primary Care Provider Dr. William Amado Referring Provider Dr. Ivette Lai Attending Provider 1([facility])-22 25 William Amado Primary Care Provider Aneudy [place] [facility] [place] [phone] ANEUDY, [facility] [place] Unavailable PROVIDER, UNKNOWN Referring Unavailable Kameron Segal Unavailable Dr. William Amado Primary Care Provider Dr. William Amado Referring Provider [phone] Ivette Lai Attending Provider [phone] Monika Lovett Attending Provider Kameron Segal MD Unavailable [phone] Aneudy NICK, [facility] [place] Aneudy NICK, [facility] [place] Provider [phone] Aneudy, Dr. Thomas Primary Care Provider Dr. William Amado Referring Provider 1([facility])[phone] Dr. Ivette Lai Attending Provider [phone] Monika Lovett Attending Provider Aneudy NICK, William Primary Care Provider Dr. William Amado DO Primary Care Provider [phone] RENETTA JESUS MD Attending Provider RENETTA JESUS MD Referring Provider 1([facility])[phone] Dr. William Amado DO Referring Provider Dr. Ivette Lai DC Attending Provider Dr. William Amado DO Attending Provider RAY GUAMAN Attending Provider RAY GUAMAN Referring Provider [phone] Estephania Scott Attending Provider Unavailable Aneudy NICK, Dr. Thomas Primary Care Provider RENETTA JESUS MD Attending Provider RENETTA JESUS MD Referring Provider Renée CONN, Dr. Ramirez Attending Provider Renée CONN, Dr. Ramirez Referring Provider Aneudy NICK, William Patel Primary Care Provide r Philipp CONN, Kameron Living[place] Unavailable MELLORS, DOLLY Referring Unavailable PETRILLA, [facility] Primary Care Unavail able MELLORS, DOLLY Attending Unavailable MELLORS, DOLLY Referring Unavailable PETRILLA, [facility] Primary Care Unavail able Petrilla DO, Dr. Thomas Primary Care Provider Aneudy NICK, Dr. Thomas Referring Provider Doscristi BARKER, Dr. Steele Attending Provider Gene ONION FARMER-C, Rayna Attending Provider Nelda CONN, Dr. Phani Arroyo Attending Provider Nelda CONN, Dr. Phani Arroyo Referring Provider ANEUDY, WILLIAM Primary Care Unavailable PETRILLA, WILLIAM Attending Unavailable PETRILLA, WILLIAM Primary Care Unavailable PETRILLA, WILLIAM Attending Unavailable PETRILLA, WILLIAM Attending Unavailable PETRILLA, [place] Primary Care Unavailable Petrilla DO, Dr. Thomas Primary Care Provider Aneudy NICK, Dr. Thomas Referring Provider Dossi DC, Dr. Steele Attending Provider Efrain NICK, Dr. Grullon Attending Provider King FABIEN, Dr. Can Attending Provider [phone] Aneudy NICK, Dr. Thomas Primary Care Provider Aneudy NICK, Dr. Thomas Referring Provider [phone] Efrain NICK, Dr. Grullon Other Provider Aneudy NICK, Dr. Thomas Primary Care Provider Aneudy NICK, Dr. Thomas Referring Provider [phone] Dossi DC, Dr. Steele Attending Provider RENETTA JESUS Referring Unavailable RENETTA JESUS Attending Unavailable Aneudy, William Primary Care Unavailable RENETTA JESUS Referring Unavailable RENETTA JESUS Attending Unavailable Petrilla, William Primary Care Unavailable Petrilla, William Primary Care Unavailable NeldaPhani Attending Unavailable NeldaPhani Referring Unavailable Petrilla, William Primary Care Unavailable Petrilla, William Referring Unavailable Petrilla, William Attending Unavailable Petrilla, William Primary Care Unavailable Assessment, Health Risk Attending Unavaila adolfo Praearl, James Attending Unavailable Prah, James Referring Unavailable Petrilla, William Primary Care Unavailable Prah, James Attending Unavailable Petrilla, William Primary Care Unavailable Prah, James Referring Unavailable Prah, James Attending Unavailable Petrilla, William Primary Care Unavailable Petrilla, William Referring Unavailable Friend, Mitchel Attending Unavailable Petrilla, William Primary Care Unavailable Petrilla, William Referring Unavailable DossiIvette Attending Unavailable Petrilla, William Primary Care Unavailable Petrilla, William Referring Unavailable DossiIvette Attending Unavailable Petrilla, William Primary Care Unavailable Petrilla, William Referring Unavailable Prah, James Attending Unavailable Petrilla, William Primary Care Unavailable Petrilla, William Referring Unavailable DossiIvette Attending Unavailable Petrilla, William Primary Care Unavailable Petrilla, William Referring Unavailable DossiIvette Attending Unavailable Petrilla, William Primary Care Unavailable Petrilla, William Referring Unavailable Monika Lovett Attending Unavailable Petrilla, William Primary Care Unavailable Petrilla, William Referring Unavailable RENETTA JESUS Attending Unavailable RENETTA JESUS Referring Unavailable Petrilla, William Primary Care Unavailable RENETTA JESUS Referring Unavailable NICKWSRENETTA MELENDEZ Attending Unavailable Petrilla, William Primary Care Unavailable Friend, Mitchel Attending Unavailable Friend, Mitchel Consulting Unavailable Petrilla, William Primary Care Unavailable Petrilla, William Referring Unavailable Friend, Mitchel Consulting Unavailable Petrilla, William Primary Care Unavailable Friend, Mitchel Attending Unavailable Petrilla, William Referring Unavailable DossiIvette Attending Unavailable Petrilla, William Primary Care Unavailable Petrilla, William Referring Unavailable BonyMonika Attending Unavailable Petrilla, William Primary Care Unavailable Petrilla, William Referring Unavailable Friend, Mitchel Attending Unavailable Petrilla, William Primary Care Unavailable Petrilla, William Referring Unavailable Friend, Mitchel Attending Unavailable Petrilla, William Primary Care Unavailable Petrilla, William Referring Unavailable Prah, James Attending Unavailable Prah, James Referring Unavailable Petrilla, William Primary Care Unavailable Dossi, Ivette Attending Unavailable Petrilla, William Primary Care Unavailable Petrilla, William Referring Unavailable Dossi, Ivette Attending Unavailable Petrilla, William Primary Care Unavailable Petrilla, William Referring Unavailable Dossi, Ivette Attending Unavailable Petrilla, William Primary Care Unavailable Petrilla, William Referring Unavailable Dossi, Ivette Attending Unavailable Petrilla, William Primary Care Unavailable Petrilla, William Referring Unavailable Dossi, Ivette Attending Unavailable Petrilla, William Primary Care Unavailable Petrilla, William Referring Unavailable Petrilla, William Primary Care Unavailable Rayna Mills Attending Unavailable Petrilla, William Referring Unavailable Mitchel Zuniga Attending Unavailable Petrilla, William Primary Care Unavailable Petrilla, William Referring Unavailable Prah, James Attending Unavailable Petrilla, William Primary Care Unavailable Petrilla, William Referring Unavailable Dossi, Ivette Attending Unavailable Petrilla, William Primary Care Unavailable Petrilla, William Referring Unavailable Dossi, Ivette Attending Unavailable Petrilla, William Primary Care Unavailable Petrilla, William Referring Unavailable Petrilla, William Primary Care Unavailable Giovana Lovett Attending Unavailable Petrilla, William Primary Care Unavailable Estephania Scott Attending Unavailable SAEKEVIN Referring Unavailable Petrilla, William Primary Care Unavailable KEVIN QUEVEDO Attending Unavailable Allergies Allergy Classification Reported Allergen(s) Allergy Type Date of Onset Reaction(s) Facility (20 sources) Milk; Translations: [MILK] food allergy 3 GI Upset [facility] Work Phone: (4 sources) Wheat gluten extract Drug Allergy 5 Intolerance [facility] Work Phone: (20 sources) dilTIAZem Drug Allergy 5 Unknown, PT UNSURE OF REACTION [facility] (15 sources) Milk Containing Products Allergy to substance 2 Diarrhea, unknown [facility] (15 sources) Cow milk Allergy to substance 3 [facility] (1 source) Gluten Allergy to substance 5 [facility] (15 sources) Milk-Related Compounds Drug Allergy 5 [facility] (1 source) dilTIAZem Drug Allergy 5 [facility] (1 source) Milk Containing Products (Dairy) Drug allergy (disorder) [facility] Medications Current Medications Medication Drug Class(es) Dates Sig (Normalized) Sig (Original) amoxicillin 875 mg / clavulanate 125 mg oral tablet (4 sources) Penicillin-class Antibacterial Start: 07-09-2023 End: 07-19-2023 take 1 tablet by mouth twice daily amoxicillin-clav ulanate potassium (AUGMENTIN) 875-125 mg per tablet Take 1 tablet by mouth two times a day for 10 days. 20 tablet 0 07/09/2023 07/19/2023 Active Start: 03-16-2023 End: 03-30-2023 take 1 tablet by mouth twice daily amoxicillin-clavulanic acid (AUGMENTIN) 875-125 mg per tablet Take 1 tablet by mouth twice daily for 14 days. 28 tablet 0 03/16/2023 03/30/2023 Active Comment on above: Take 1 tablet by cee th twice daily for 14 days. Take 1 tablet by cee two times a day for 10 days. atorvastatin 20 mg oral tablet (20 sources) HMG-CoA Reductase Inhibitor Start: take 10 mg by mouth at bedtime Atorvastatin 20 mg tablet Active 10 mg PO AT BEDTIME December 05, 2024 2:05pm Start: 07-20-2023 End: 01-05-2026 take 1 tablet by mouth once daily atorvastatin (Lipitor) 10 MG tablet Take 1 tablet (10 mg) by mouth Nightly for 360 doses. 90 tablet 1 07/11/2024 01/10/2025 Discontinued (Reorder) Start: 08-13-2022 End: 12-05-2024 take 1 tablet by mouth once daily in the evening Atorvastatin 20 mg tablet Discontinued 20 mg PO EVERY EVENING 90 3 March 29, 2024 3:48pm December 05, 2024 2:08pm benzonatate 100 mg oral capsule (6 sources) Non-narcotic Antitussive Start: 10-13-2023 take 1 capsule by mouth every eight hours as needed benzonatate (TESSALON PERLES) 100 mg capsule Take 1 capsule by mouth three times a day as needed for cough. 14 capsule 10/13/2023 Active Comment on above: Take 1 capsule by mo [facility] three times a day as needed for cough. Blood Glucose Monitoring Suppl (OneTouch Verio Flex System) w/Device kit (1 source) Start: 07-26-2024 Blood Glucose Monitoring Suppl (OneTouch Verio Flex System) w/Device kit 07/26/2024 Active Blood-Glucose Meter (Freestyle Cora Lite) kit (3 sources) Start: 02-22-2025 Blood-Glucose Meter (Freestyle Cora Lite) kit Active 0 .Route 1 0 February 22, 2025 12:00am As directed Start: 02-22-2025 Blood-Glucose Meter (Freestyle Cora Lite) kit Active 0 .Route 1 February 22, 2025 12:00am As directed carvedilol 25 mg oral tablet (20 sources) alpha-Adrenergic Molly, beta-Adrenergic Molly Start: 12-22-2015 End: 01-10-2025 take 1 tablet by mouth twice daily Carvedilol 25 MG tablet Active 25 mg PO TWICE A DAY December 22, 2015 12:00am Comment on above: Take 25 mg by mouth twice daily with meals. cholecalciferol 0.025 mg oral capsule (20 sources) Vitamin D Start: 12-10-2022 take 1 capsule by mouth once daily Cholecalciferol (Vitamin D3) 25 mcg (1,000 unit) capsule Active 25 ug PO DAILY December 10, 2022 12:00am cholecalciferol (Vitamin D3) 25 MCG (1000 UT) tablet Take by mouth daily. Active cloNIDine hydrochloride 0.3 mg oral tablet (20 sources) Central alpha-2 Adrenergic Agonist Start: 12-05-2024 take 1 tablet by mouth twice daily Clonidine Hcl 0.3 mg tablet Active 0.3 mg PO TWICE A DAY December 05, 2024 2:05pm Start: 12-05-2024 take 2 tablets by [facility] at bedtime Clonidine Hcl 0.3 mg tablet Active 0.6 mg PO AT BEDTIME December 05, 2024 12:00am Start: 07-11-2024 End: 01-10-2025 cloNIDine (Catapres) 0.3 MG tablet One q AM , one q afternoon, then 2 q PM 360 tablet 1 01/10/2025 Active Start: 12-15-2023 End: 03-29-2024 take 0.3 mg by mouth three times daily Clonidine Hcl (Catapres) 0.1 mg tablet Discontinued 0.3 mg PO THREE TIMES A DAY December 15, 2023 3:25pm March 29, 2024 3:32pm Start: 09-15-2023 End: 12-15-2023 take 2 tablets by mouth three times daily Clonidine Hcl (Catapres) 0.1 mg tablet Discontinued 0.2 mg PO THREE TIMES A DAY September 15, 2023 9:07am December 15, 2023 3:26pm Start: 07-20-2023 End: 12-05-2024 take 1 tablet by mouth three times daily Clonidine Hcl 0.3 mg tablet Discontinued 0.3 mg PO THREE TIMES A DAY March 29, 2024 12:00am December 05, 2024 2:08pm Start: 08-13-2022 End: 07-20-2023 cloNIDine (Catapres) 0.2 MG tablet Inc to 0.2 mg tab TID Strength: 0.2 mg 270 tablet 1 01/13/2023 07/20/2023 Discontinued (Reorder) Start: 09-09-2017 End: 09-15-2023 take 1 tablet by mouth twice daily Clonidine Hcl (Catapres) 0.1 mg tablet Discontinued 0.1 mg PO TWICE A DAY September 09, 2017 3:30pm September 15, 2023 9:07am Start: 08-19-2017 End: 09-09-2017 take 1 tablet by mouth once Clonidine Hcl (Catapres) 0 .1 mg tablet Discontinued 0.1 mg PO ONCE August 19, 2017 1:00am September 09, 2017 3:30pm Start: 06-22-2017 CATAPRES 0.1 M G TABS once at night CLONIDINE HCL [id number] Ivette Lai DC take 1 tablet by cee th twice daily cloNIDine HCl (CATAPRES) 0.2 mg tablet Take 0.2 mg by mouth twice daily. 0 Active Comment on above: Take 0.2 mg by mouth twice daily. Take 0.2 mg by mouth three times daily. docusate sodium 50 mg / sennosides, senior care 8.6 mg oral tablet (20 sources) Start: 02-04-2023 take 1 tablet by mouth twice daily senna-docusate (SENNA-S) 8.6-50 mg per tablet 1 tablet by ORAL/FEEDING TUBE route twice daily. 60 tablet 02/04/2023 Active Start: 02-04-2023 take 1 tablet by cee th twice daily senna-docusate (SENNA-S) 8.6-50 mg per tablet 1 tablet by ORAL/FEEDING TUBE route twice daily. 60 tablet 0 02/04/2023 Active Comment on above: 1 tablet by ORAL/FEE DING TUBE route twice daily. Dulaglutide (20 sources) GLP-1 Receptor Agonist Start: 03-11-2025 Dulaglutide (Trulicity) 3 mg/0.5 mL pen injector Active 3 mg SC EVERY WEEK 2 3 March 11, 2025 12:00am Start: 02-27-2025 End: 03-11-2025 Dulaglutide (Trulicity) 1.5 mg/0.5 mL pen injector Discontinued 1.5 mg SC WE February 27, 2025 12:00am March 11, 2025 10:31am Start: 10-25-2023 End: 02-27-2025 Dulaglutide (Trulicity) 1.5 mg/0.5 mL pen injector Discontinued 1.5 mg SC EVERY WEEK 2 8 December 20, 2024 7:42am February 27, 2025 4:14pm Start: 09-15-2023 End: 03-29-2024 Dulaglutide (Trulicity) 0.75 mg/0.5 mL pen injector Discontinued 0.75 mg SC EVERY WEEK 2 3 October 27, 2023 1:42pm March 29, 2024 3:34pm ferrous sulfate 325 mg oral tablet (8 sources) Start: 12-20-2024 Ferrous Sulfat e (Feosol) 325 mg (65 mg iron) tablet Active 325 mg PO .2XWK December 20, 2024 12:00am take 1 tablet by cee th three times daily at mealtime ferrous sulfate 325 (65 Fe) MG EC tablet Take 325 mg by mouth 3 times daily (with meals). Do not crush, chew, or split. Active take 1 tablet by mouth two times weekly Ferrous Sulfate (iron) 325 (65 Fe) MG tablet Take 65 mg by mouth Twice a Week. Active finasteride 5 mg oral tablet (20 sources) 5-alpha Reductase Inhibitor Start: 12-22-2015 End: 07-11-2024 take 1 tablet by mouth once daily Finasteride 5 MG tablet Active 5 mg PO DAILY December 22, 2015 12:00am Comment on above: Take 5 mg by mouth o nce daily. hydrALAZINE hydrochloride 100 mg oral tablet (20 sources) Arteriolar Vasodilator Start: 06-22-2017 HYDRALAZINE HCL 10 MG TABS three times daily HYDRALAZINE HCL [id number] Ivette Lai DC Start: 12-22-2015 End: 01-10-2025 take 1 tablet by mouth three times daily Hydralazine 100 MG tablet Active 100 mg PO THREE TIMES A DAY December 22, 2015 12:00am Comment on above: Take 100 mg by mouth three times daily. hydroCHLOROthiazide 25 mg oral tablet (4 sources) Thiazide Diuretic Start : 01-10 End: 07-09 take 1 tablet by mouth once daily Hydrochlorothiazide 25 mg tablet Active 25 mg PO DAILY February 27, 2025 12:00am hydrocortisone 10 mg oral tablet (20 sources) Corticosteroid Start : 12-05 take 2 tablets by mouth three times daily in the morning, then take 1 tablet by mouth in the evening Hydrocortisone 10 mg tablet Active 10 mg PO THREE TIMES A DAY December 05, 2024 2:06pm 2 tabs in the morning and 1 tab in the evening Start: 12-05-2024 take 2 tablets by mo uth twice daily in the morning, then take 1 tablet by mouth in the evening Hydrocortisone 10 mg tablet Active 10 mg PO TWICE A DAY December 05, 2024 2:06pm 2 tabs in the morning and 1 tab in the evening Start: 08-01-2024 End: 12-05-2024 take 1 tablet by mouth three times daily Hydrocortisone 5 mg tablet Discontinued 5 mg PO THREE TIMES A DAY 90 August 01, 2024 1:00am December 05, 2024 2:08pm Start: 03-10-2023 hydrocortisone (CORTEF) 5 mg tablet Take 3 tablets daily according to the steroid weaning schedule 270 tablet 3 03/10/2023 Active Start: 02-24-2023 End: 12-05-2024 take 1 tablet by mouth three times daily Hydrocortisone 10 mg tablet Discontinued 10 mg PO THREE TIMES A DAY 270 July 27, 2024 8:26am December 05, 2024 2:08pm Start: 05-25-2021 Hydrocortisone 2.5 % cream Active 1 NMA TOPICAL TWICE A DAY as needed for Skin Cleansing May 25, 2021 12:00am Start: 05-25-2021 hydrocortisone 2.5 % cream Apply topically. 05/25/2021 Active Comment on above: Apply 1 application to affected area twice daily as needed (Skin irritation). Take 1 tablet by cee th as directed. Take 2 tabs in am and 1 tab at 2pm Take 3 tablets daily according to the steroid weaning schedule iv contrast (will be provided with radiology test) (3 sources) Start: 12-22-2023 End: 12-23-2023 iv contrast (will be provided with radiology test) MRI Pituitary Inject, intravenously, once for 1 dose. No IV access, insert saline lock prior to the beginning of sedation, infusion, injection of imaging exam. Discontinue saline lock post exam. If Pt. has a central line or IVAD, may access for administration according to line specific nursing protocol. Once exam is complete flush line and de-access according to line specific nursing protocol in the MR contrast administration guidelines link. 1 Each 0 12/22/2023 12/23/2023 Active Start: 03-17-2023 End: 03-18-2023 iv contrast (will be provide d with radiology test) Indications: Pituitary adenoma (HCC) MRI Pituitary Inject, intravenously, once for 1 dose. No IV access, insert saline lock prior to the beginning of sedation, infusion, injection of imaging exam. Discontinue saline lock post exam. If Pt. has a central line or IVAD, may access for administration according to line specific nursing protocol. Once exam is complete flush line and de-access according to line specific nursing protocol in the MR contrast administration guidelines link. 1 Each 0 03/17/2023 03/18/2023 Active Start: 12-09-2021 End: 12-10-2021 iv contrast (will be provide d with radiology test) MRI Pituitary Inject, intravenously, once for 1 dose. No IV access, insert saline lock prior to the beginning of sedation, infusion, injection of imaging exam. Discontinue saline lock post exam. If Pt. has a central line or IVAD, may access for administration according to line specific nursing protocol. Once exam is complete flush line and de-access according to line specific nursing protocol in the MR contrast administration guidelines link. 1 Each 0 12/09/2021 12/10/2021 Active Comment on above: MRI Pituitary Inject , intravenously, once for 1 dose. No IV access, insert saline lock prior to the beginning of sedation, infusion, injection of imaging exam. Discontinue saline lock post exam. If Pt. has a central line or IVAD, may access for administration according to line specific nursing protocol. Once exam is complete flush line and de-access according to line specific nursing protocol in the MR contrast administration guidelines link. ketoconazole 20 mg/ml medicated shampoo (20 sources) Azole Antifungal Start: 05-25-2021 Ketoconazole 2 % shampoo Active 1 NMA TOPICAL EVERY OTHER DAY May 25, 2021 12:00am Start: 05-25-2021 Ketoconazole A ctive 1 APPLIC TOPICAL TWICE A WEEK May 25, 2021 12:00am Start: 11-17-2020 ketoconazole ( NIZOral) 2 % shampoo 11/17/2020 Active lactobacillus acidophilus [id number] unt oral capsule (20 sources) take 1 capsule by mo ut once daily Lactobacillus acidophilus (PROBIOTIC) 10 billion cell cap Take 1 capsule by mouth once daily. Active End: 07-20-2023 Probiotic, Lactobacillus, ca psule Take by mouth daily. 0 07/20/2023 Discontinued (Therapy completed) Comment on above: Take by mouth once d aily. Take 1 capsule by mo ut once daily. lisinopril 40 mg oral tablet (20 sources) Angiotensin Converting Enzyme Inhibitor Start: 12-22-2015 End: 01-10-2025 take 1 tablet by mouth once daily Lisinopril 40 MG tablet Active 40 mg PO DAILY December 22, 2015 12:00am Comment on above: Take 40 mg by mouth once daily. Multiple Vitamins-Iron (MULTI-VITAMIN/IRON PO) (15 sources) Multiple Vitamins-Iron (MULTI-VITAMIN/IRON PO) Take by mouth. Active Multiple Vitamin s-Iron (MULTI-VITAMIN/IRON PO) Take by mouth. 0 Active Multivitamin preparation (7 sources) Start: 08-19-2017 take 1 tablet by mouth once daily in the morning Multivitamin Active 1 TABLET PO EVERY MORNING August 19, 2017 12:00am Start: 08-19-2017 [facility] daily in the [facility] Multivitamin Active 1 TABLET PO EVERY MORNING August 19, 2017 1:00am Multivitamin tablet (8 sources) Start: 08-19-2017 Multivitamin tablet Active 1 {tbl} PO DAILY August 19, 2017 1:00am mupirocin 0.02 mg/mg topical ointment (12 sources) RNA Synthetase Inhibitor Antibacterial Start: 04-04-2023 mupirocin (CENTANY) 2 % ointment Use as directed twice daily. Dispense 22 gm tubes. 7 tubes = 1mos supply 154 g 3 04/04/2023 Active Comment on above: Use as directed twic e daily. Dispense 22 gm tubes. 7 tubes = 1mos supply 24 hr oxybutynin chloride 10 mg extended release oral tablet (20 sources) Cholinergic Muscarinic Antagonist Start: 05-25-2021 take 1 tablet by mouth once daily Oxybutynin Chloride 10 mg tablet extended release 24hr Active 10 mg PO DAILY May 25, 2021 12:00am Start: 01-19-2021 oxybutynin XL (Ditropan-XL) 10 MG 24 hr tablet 01/19/2021 Active Comment on above: Take 10 mg by mouth once daily. microencapsulated potassium chloride 20 meq extended release oral tablet (20 sources) Start: 3 End: 4 take 1 tablet by mouth twice daily potassium chloride ER (KLOR-CON) 20 mEq tablet Take 1 tablet by mouth twice daily. 2 tablet 02/24/2023 Active Comment on above: Take 1 tablet by cee th twice daily. sodium chloride 0.154 meq/ml irrigation solution (20 sources) Start: 3 sodium chloride 0.9 % irrigation solution Irrigate as directed each nostril with 60cc of solution twice daily. Dispense one liter bottles 04/04/2023 Active Start: 02-04-2023 take 2 spray(s) nasa l route four times daily sodium chloride 0.65 % nasal spray Use 2 Sprays in each nostril four times daily. 208 mL 1 02/04/2023 Active Start: 02-04-2023 End: 01-18-2024 [place] 0.65 % nasal spray Comment on above: Use 2 Sprays in each nostril four times daily. Irrigate as directed each nostril with 60cc of solution twice daily. Dispense one liter bottles sulfaSALAzine 500 mg delayed release oral tablet (20 sources) Aminosalicylate Start: 12-15-19 take 1.5 g by mouth twice daily Sulfasalazine 500 mg tablet,delayed release (DR/EC) Active 1.5 g PO TWICE A DAY December 15, 2023 12:00am Start: 12-15-2023 take 2 tablets by mo uth twice daily Sulfasalazine 500 mg tablet,delayed release (DR/EC) Active 1000 mg PO TWICE A DAY December 15, 2023 12:00am Start: 12-15-2023 take 1000 mg by mout h twice daily Sulfasalazine Active 1000 MG PO TWICE A DAY December 15, 2023 12:00am Completed/Discontinued Medications Medication Drug Class(es) Dates Sig (Normalized) Sig (Original) 8 hr acetaminophen 650 mg extended release oral tablet (20 sources) Start: 11-20-2024 End: 02-21-2025 take 1 tablet by mouth every eight hours Acetaminophen 650 mg tablet extended release Discontinued 650 mg PO Q8H November 20, 2024 12:00am February 21, 2025 4:16pm Start: 02-04-2023 take 2 tablets enter al route every six hours as needed acetaminophen (TYLENOL) 500 mg tablet 2 tablets by ORAL/FEEDING TUBE route every 6 hours as needed for pain. 02/04/2023 Active Start: 02-04-2023 take 2 tablets by mo uth every six hours as needed acetaminophen (TYLENOL) 500 mg tablet 2 tablets by ORAL/FEEDING TUBE route every 6 hours as needed for pain. 0 02/04/2023 Active Comment on above: 2 tablets by ORAL/FE EDING TUBE route every 6 hours as needed for pain. acetaminophen 325 mg / oxyCODONE hydrochloride 5 mg oral tablet (15 sources) Opioid Agonist Start: 12-25-2015 End: 08-19-2017 Oxycodone-Acetaminophen 1 TABLET tablet Discontinued 1 - 2 {tbl} PO EVERY 6 HOURS NEEDED as needed for Mod/Severe (pain scale 6-10) 30 0 December 25, 2015 12:00am August 19, 2017 11:48am Start: 12-25-2015 End: 08-19-2017 take 1 tablet by mouth every six hours as needed Oxycodone-Acetaminophen Discontinued 1 - 2 TABLET PO EVERY 6 HOURS NEEDED December 25, 2015 12:00am August 19, 2017 11:48am amoxicillin 500 mg oral capsule (13 sources) Penicillin-class Antibacterial Start: 09-22-2022 End: 10-02-2022 take 1 capsule by mouth three times daily Amoxicillin 500 mg capsule Discontinued 500 mg PO THREE TIMES A DAY 30 10 0 September 22, 2022 1:00am October 01, 2022 1:00am October 02, 2022 1:11am apremilast 30 mg oral tablet (20 sources) Start: 12-22-2015 End: 01-18-2024 take 1 tablet by mouth twice daily Apremilast 30 MG tablet Discontinued 30 mg PO TWICE A DAY December 22, 2015 12:00am December 15, 2023 3:26pm Comment on above: Take 30 mg by mouth twice daily. Take 1 tablet by cee th twice daily. PLEASE DO NOT TAKE THIS MEDICATION UNTIL CLEARED TO DO SO BY ENT AT YOUR FOLLOW UP APPOINTMENT FOR WOUND CHECK aspirin 81 mg delayed release oral tablet (17 sources) Platelet Aggregation Inhibitor, Nonsteroidal Anti-inflammatory Drug Start: 12-22-2015 End: 01-13-2023 take 1 tablet by mouth once daily Aspirin 81 MG tablet,delayed release (DR/EC) Discontinued 81 mg PO DAILY December 22, 2015 12:00am May 25, 2021 3:57pm bisacodyl 5 mg delayed release oral tablet (15 sources) Stimulant Laxative Start: 05-25-2021 End: 05-26-2021 take 1 tablet by mouth once Bisacodyl 5 mg tablet,delayed release (DR/EC) Discontinued 5 mg PO ONCE 4 1 0 May 25, 2021 12:00am May 25, 2021 12:00am May 26, 2021 12:01am bismuth subsalicylate 262 mg chewable tablet (15 sources) Bismuth Start: 05-25-2018 End: 03-29-2024 take 1 tablet by mouth three times daily Bismuth Subsalicylate 262 MG tablet,chewable Discontinued 262 mg PO THREE TIMES A DAY May 25, 2018 12:00am March 29, 2024 3:32pm Blood-Glucose Meter (Onetouch Verio Reflect Meter) misc (17 sources) Start: 07-26-2024 End: 02-21-2025 Blood-Glucose Meter (Onetouch Verio Reflect Meter) misc Discontinued 0 .Route 1 0 July 26, 2024 6:02pm February 21, 2025 4:40pm Diabetes mellitus Type 2 diabetes mellitus with hyperglycemia As directed Start: 07-26-2024 End: 02-21-2025 Blood-Glucose Meter (Onetouc h Verio Reflect Meter) misc Discontinued 0 .Route 1 July 26, 2024 6:02pm February 21, 2025 4:40pm As directed Start: 07-26-2024 Blood-Glucose Meter (Onetouch Verio Reflect Meter) misc Active 0 .Route 1 July 26, 2024 6:02pm As directed Start: 06-30-2023 End: 07-26-2024 Blood-Glucose Meter (Onetouc h Verio Reflect Meter) misc Discontinued 0 .Route 1 0 June 30, 2023 12:00am July 26, 2024 6:02pm Diabetes mellitus Type 2 diabetes mellitus with hyperglycemia As directed Start: 06-30-2023 End: 07-26-2024 Blood-Glucose Meter (Onetouc h Verio Reflect Meter) misc Discontinued 0 .Route 1 June 30, 2023 12:00am July 26, 2024 6:02pm As directed Start: 06-30-2023 Blood-Glucose Meter (Onetouch Verio Reflect Meter) misc Active 0 .Route 1 June 30, 2023 12:00am As directed fluticasone propionate 0.05 mg/actuat metered dose nasal spray (20 sources) Corticosteroid Start: 05-17-2018 End: 05-25-2021 Fluticasone Propionate 50 mcg/actuation spray,suspension Discontinued 1 NMA INTRANASAL DAILY as needed for Nasal Congestion May 17, 2018 12:00am May 25, 2021 3:57pm Start: 05-17-2018 End: 05-25-2021 Fluticasone Propionate Disco ntinued 1 SPRAY INTRANASAL DAILY May 17, 2018 12:00am May 25, 2021 3:57pm Start: 12-22-2015 End: 08-19-2017 Fluticasone Propionate 1 SPR AY spray,suspension Discontinued 1 NMA NASAL DAILY as needed for Allergies December 22, 2015 12:00am August 19, 2017 11:48am Start: 12-22-2015 End: 08-19-2017 Fluticasone Propionate Disco ntinued 1 SPRAY NASAL DAILY December 22, 2015 12:00am August 19, 2017 11:48am End: 01-26-2023 FLUTICASONE PROPIONATE (FLON ASE NASAL) Use in the nose. 0 01/26/2023 Discontinued (Discontinued by Patient) FLUTICASONE PROP IONATE (FLONASE NASAL) Use in the nose. 0 Active Comment on above: Use in the nose. glimepiride 1 mg oral tablet (20 sources) Sulfonylurea Start: 12-15-2023 End: 03-29-2024 take 1 tablet by mouth once daily Glimepiride 1 mg tablet Discontinued 1 mg PO DAILY 30 3 December 15, 2023 12:00am March 29, 2024 3:33pm Start: 06-16-2023 End: 07-11-2024 take 1 tablet by mouth once daily Glimepiride 2 mg tablet Discontinued 2 mg PO DAILY 90 1 June 16, 2023 12:00am December 15, 2023 3:49pm Comment on above: Take by mouth. Inulin (5 sources) End: 01-26-2023 FIBER CHOICE ORAL Take by mo [facility]. 0 01/26/2023 Discontinued (Course of therapy completed) FIBER CHOICE ORA L Take by mouth. 0 Active Comment on above: Take by mouth. Lactobacillus Combination No.9 (Adult 50 Plus Probiotic) 4 billion cell capsule (10 sources) Start: End: take 4 capsules by mouth once daily Lactobacillus Combination No.9 (Adult 50 Plus Probiotic) 4 billion cell capsule Discontinued 4000 NMA PO DAILY December 10, 2022 12:00am March 29, 2024 3:34pm administer with a meal Start: 12-10-2022 take 4 capsules by m out once daily Lactobacillus Combination No.9 (Adult 50 Plus Probiotic) 4 billion cell capsule Active 4000 MMU CELLS PO DAILY December 10, 2022 12:00am administer with a meal leucovorin 15 mg oral tablet (20 sources) Folate Analog Start: 05-25-2018 End: 05-25-2021 take 1 tablet by mouth every week Leucovorin Calcium 15 MG tablet Discontinued 15 mg PO EVERY WEEK May 25, 2018 12:00am May 25, 2021 3:57pm End: 01-26-2023 take 1 tablet by mouth once daily leucovorin (LEUCOVORIN) 15 mg tablet Take 15 mg by mouth once daily. 0 01/26/2023 Discontinued (Course of therapy completed) Comment on above: Take 15 mg by mouth once daily. levothyroxine sodium 0.075 mg oral tablet (20 sources) l-Thyroxine Start: 01-08-2023 Levothyroxine 75 mcg tablet Active 75 ug PO MOTUWETHFRSA June 14, 2024 12:00am Start: 08-13-2022 End: 01-13-2023 levothyroxine (Synthroid, Le voxyl) 50 MCG tablet One q day except Tuesday takes 2 35 tablet 5 08/13/2022 01/13/2023 Discontinued (Med list cleanup) Start: 08-10-2022 End: 02-27-2025 take 2 tablets by mouth once daily Levothyroxine 75 mcg tablet Discontinued 75 ug PO .qd, 2 on Sundays 102 3 February 07, 2025 3:51pm February 27, 2025 4:14pm Start: 12-01-2021 End: 08-10-2022 take 1 tablet by mouth once daily Levothyroxine 75 mcg tablet Discontinued 75 ug PO DAILY 90 June 08, 2022 8:55am August 10, 2022 1:10pm Start: 12-22-2015 End: 12-01-2021 take 1 tablet by mouth once daily Levothyroxine 50 MCG tablet Discontinued 50 ug PO DAILY December 22, 2015 12:00am December 01, 2021 1:04pm take 1 capsule by [facility] once daily Levothyroxine 50 mcg cap Take 1 capsule by mouth once daily. Active Comment on above: Take 1 capsule by mo [facility] once daily. loratadine 10 mg oral capsule (20 sources) Start: 06-22-2017 CLARITIN 10 MG CAPS as needed LORATADINE [id number] Ivette Lai DC Start: 12-22-2015 End: 01-18-2024 take 1 tablet by mouth once daily as needed Loratadine 10 MG tablet Discontinued 10 mg PO DAILY as needed for Allergies December 22, 2015 12:00am May 25, 2021 3:57pm LORATADINE (CLAR ITIN ORAL) Take by mouth. 0 Active Comment on above: Take by mouth. Take 10 mg by mouth once daily. melatonin 5 mg oral tablet (1 source) End: 01-14-20 take 1 tablet by mouth every twenty-four hours as needed melatonin 5 MG tablet Take 5 mg by mouth every 24 hours as needed. 0 01/13/2023 Discontinued (Therapy completed) meloxicam 15 mg oral tablet (20 sources) Nonsteroidal Anti-inflammatory Drug Start: 12-22-19 End: 01-27-20 23 take 1 tablet by mouth once daily as needed for arthritis Meloxicam 15 MG tablet Discontinued 15 mg PO DAILY NEEDED as needed for RHEUMATOID ARTHRITIS December 22, 2015 12:00am May 25, 2021 3:57pm Comment on above: Take 15 mg by mouth as needed. methotrexate 2.5 mg oral tablet (6 sources) Folate Analog Metabolic Inhibitor Start: 06-22-20 METHOTREXATE 2.5 MG TABS 5 days per week METHOTREXATE SODIUM [id number] Ivette Lai DC End: 01-26-2023 METHOTREXATE ORAL Take 2.5 m g by mouth. 0 01/26/2023 Discontinued (Course of therapy completed) Comment on above: Take 2.5 mg by mouth . 24 hr mirabegron 50 mg extended release oral tablet (20 sources) beta3-Adrenergic Agonist Start: 08-09-2021 End: 07-11-2024 mirabegron ER (Myrbetriq) 50 MG 24 hr tablet 08/09/2021 07/11/2024 Discontinued (Therapy completed) Start: 05-25-2021 End: 03-29-2024 take 1 tablet by mouth once daily Mirabegron (Myrbetriq) 50 mg tablet extended release 24 hr Discontinued 50 mg PO DAILY May 25, 2021 12:00am March 29, 2024 3:34pm Comment on above: Take 50 mg by mouth once daily. MULTIPLE VITAMINS-MINERALS (1 source) Start: 06-22-20 KP ADULTS 50+ DAILY FORMULA TABS Once daily MULTIPLE VITAMINS-MINERALS [id number] Ivette Lai DC polyethylene glycol 3350 54245 mg powder for oral solution (20 sources) Osmotic Laxative Start: 05-25-20 End: 12-11-19 23 take 17 g by mouth once daily Polyethylene Glycol 3350 17 gram/dose powder Discontinued 17 g PO DAILY 238 0 May 29, 2021 12:00am May 29, 2021 10:17am Take starting at 4:00pm as directed for prep instructions. predniSONE 10 mg oral tablet (20 sources) Start: 12-22-19 16 End: 05-13-20 take 1 tablet by mouth once daily as needed Prednisone 10 mg tablet Discontinued 10 mg PO DAILY as needed for ra flare May 17, 2018 12:00am May 13, 2023 9:28am Comment on above: Take 10 mg by mouth as needed. SITagliptin 100 mg oral tablet (15 sources) Dipeptidyl Peptidase 4 Inhibitor Start: 04-01-20 23 End: 01-18-20 24 take 1 tablet by mouth once daily Sitagliptin Phosphate (Januvia) 100 mg tablet Discontinued 100 mg PO DAILY April 01, 2023 12:00am September 15, 2023 9:43am spironolactone 50 mg oral tablet (14 sources) Aldosterone Antagonist Start: 06-08-20 End: 12-11-19 Spironolactone 50 mg tablet Discontinued 50 mg PO June 08, 2022 12:00am December 10, 2022 4:07pm tamsulosin hydrochloride 0.4 mg oral capsule (16 sources) alpha-Adrenergic Molly Start: 08-19-20 17 End: 05-17-20 18 take 1 capsule by mouth once daily Tamsulosin (Flomax) 0.4 mg capsule,extended release 24hr Discontinued 0.4 mg PO daily August 19, 2017 1:00am May 17, 2018 10:35am Start: 06-22-2017 FLOMAX 0.4 MG CAPS PRN TAMSULOSIN HCL [id number] Ivette Lai DC Tirzepatide (Mounjaro) 5 mg/ 0.5 mL pen injector (5 sources) Start: 02-21-2025 End: 03-11-2025 Tirzepatide (Mounjaro) 5 mg/ 0.5 mL pen injector Discontinued 5 mg SC EVERY WEEK 2 February 21, 2025 12:00am March 11, 2025 10:27am On Hold: HAS NOT STARTED Start: 02-21-2025 Tirzepatide (M ounjaro) 5 mg/0.5 mL pen injector Active 5 mg SC EVERY WEEK 2 February 21, 2025 12:00am On Hold: HAS NOT STARTED Start: 02-21-2025 Tirzepatide (M ounjaro) 5 mg/0.5 mL pen injector Active 5 mg SC EVERY WEEK 2 February 21, 2025 12:00am Problems Active Problems Problem Classification Problem Date Documented Da te Episodic/Chronic Biliary tract disease (15 sources) Acute cholecystitis; Translations: [Acute cholecystitis] 05-17-2018 Episodic Cancer; other and unspecified primary (2 sources) History of pituitary adenoma; Translations: [Personal history of other benign neoplasm] Episodic Cataract (16 sources) Bilateral cataracts; Translations: [Unspecified cataract] Onset: 06-22-2017 06-22-2017 Chronic Coagulation and hemorrhagic disorders (1 source) Thrombocytopenia, unspecified; Translations: [Thrombocytopenia, unspecified] Onset: 07-03-2024 Chronic Complications of surgical procedures or medical care (6 sources) Complication of procedure; Translations: [Other postprocedural endocrine and metabolic complications and disorders] Onset: 12-24-2024 Episodic Deficiency and other anemia (17 sources) Anemia of chronic disease; Translations: [Anemia in other chronic diseases classified elsewhere] Onset: 05-07-2015 06-20-2022 Chronic Deficiency and other anemia (2 sources) Anemia in other chronic diseases classified elsewhere; Translations: [Anemia in other chronic diseases classified elsewhere] Onset: 06-20-2022 Chronic Deficiency and other anemia (20 sources) Anemia; Translations: [Anemia, unspecified] Onset: 06-09-2012 06-22-2017 Episodic Comment on above: Discussed causes of anemia and evaluation. Deficiency and other anemia (9 sources) Normocytic normochromic anemia; Translations: [Anemia, unspecified] 10-25-2024 Episodic Deficiency and other anemia (1 source) Iron deficiency anemia, unspecified; Translations: [Iron deficiency anemia, unspecified] Onset: 03-20-2025 Episodic Deficiency and other anemia (2 sources) Anemia, unspecified; Translations: [Anemia, unspecified] Onset: 12-11-2024 Episodic Diabetes mellitus with complications (3 sources) Hyperglycemia due to diabetes mellitus; Translations: [Type 2 diabetes mellitus with hyperglycemia] Onset: 02-22-2025 Chronic Diabetes mellitus without complication (20 sources) Diabetes mellitus; Translations: [Type 2 diabetes mellitus without complications] Onset: 07-20-2023 07-09-2022 Chronic Diabetes mellitus without complication (20 sources) Prediabetes; Translations: [Prediabetes] Onset: 06-06-2016 Episodic Disorders of lipid metabolism (20 sources) Hypertriglyceridemia; Translations: [Pure hyperglyceridemia] Onset: 05-07-2015 05-17-2018 Chronic Esophageal disorders (20 sources) Eosinophilic esophagitis; Translations: [Eosinophilic esophagitis] Onset: 05-07-2015 05-17-2018 Chronic Essential hypertension (20 sources) Hypertensive disorder; Translations: [Essential (primary) hypertension] Onset: 05-07-2015 06-22-2017 Chronic Hyperplasia of prostate (20 sources) Benign prostatic hyperplasia; Translations: [Benign prostatic hyperplasia without lower urinary tract symptoms] Onset: 01-26-2023 02-04-2023 Chronic Osteoarthritis (20 sources) Arthritis; Translations: [Unspecified osteoarthritis, unspecified site] Onset: 05-07-2015 06-20-2022 Chronic Other aftercare (2 sources) Follow-up status; Translations: [Encounter for follow-up examination after completed treatment for conditions other than malignant neoplasm] Episodic Other and unspecified benign neoplasm (1 source) Neoplasm of meninges; Translations: [Benign neoplasm of meninges, unspecified] 03-17-2023 Chronic Other and unspecified benign neoplasm (3 sources) Benign adenomatous neoplasm; Translations: [Benign neoplasm, unspecified site] Episodic Other and unspecified benign neoplasm (15 sources) Pituitary macroadenoma; Translations: [Benign neoplasm of pituitary gland] 09-03-2020 Episodic Other and unspecified benign neoplasm (20 sources) History of polyp of colon; Translations: [Personal history of colonic polyps] Onset: 08-10-2021 05-25-2021 Episodic Other bone disease and musculoskeletal deformities (20 sources) Segmental and somatic dysfunction; Translations: [Segmental and somatic dysfunction of cervical region] Onset: 06-22-2017 06-23-2017 Episodic Other bone disease and musculoskeletal deformities (20 sources) Segmental and somatic dysfunction of cervical region; Translations: [Nonallopathic lesions, cervical region] Onset: 04-15-2025 Episodic Other bone disease and musculoskeletal deformities (20 sources) Segmental and somatic dysfunction of lumbar region; Translations: [Nonallopathic lesions, lumbar region] Onset: 04-15-2025 Episodic Other bone disease and musculoskeletal deformities (20 sources) Segmental and somatic dysfunction of thoracic region; Translations: [Nonallopathic lesions, thoracic region] Onset: 04-15-2025 Episodic Other bone disease and musculoskeletal deformities (20 sources) Segmental and somatic dysfunction of pelvic region; Translations: [Nonallopathic lesions, pelvic region] Onset: 04-15-2025 Episodic Other diseases of bladder and urethra (20 sources) Overactive bladder; Translations: [Overactive bladder] Onset: 01-26-2023 01-26-2023 Chronic Other endocrine disorders (4 sources) Male hypogonadism; Translations: [Testicular hypofunction] Chronic Other endocrine disorders (2 sources) Disorder of pituitary gland; Translations: [Disorder of pituitary gland, unspecified] Chronic Other endocrine disorders (13 sources) Hypocortisolism secondary to another disorder; Translations: [Other adrenocortical insufficiency] 04-01-2023 Chronic Other endocrine disorders (4 sources) Other adrenocortical insufficiency; Translations: [Glucocorticoid deficiency] 04-01-2023 Chronic Other endocrine disorders (3 sources) Testicular hypofunction; Translations: [Other testicular hypofunction] 04-01-2023 Chronic Other gastrointestinal disorders (18 sources) Celiac disease; Translations: [Celiac disease] Onset: 01-10-2025 01-09-2025 Chronic Comment on above: Has tTG IgG which ma y be a sign of Gluten sensitivity. Other gastrointestinal disorders (2 sources) Celiac disease; Translations: [Celiac disease] Onset: 01-10-2025 Chronic Other inflammatory condition of skin (18 sources) Psoriatic arthritis; Translations: [Arthropathic psoriasis, unspecified] Onset: 05-07-2015 06-20-2022 Chronic Other inflammatory condition of skin (1 source) Psoriasis; Translations: [Psoriasis, unspecified] 01-18-2024 Chronic Other inflammatory condition of skin (2 sources) Arthropathic psoriasis, unspecified; Translations: [Arthropathic psoriasis, unspecified (HCC)] Onset: 06-20-2022 Chronic Other nutritional; endocrine; and metabolic disorders (20 sources) Intolerance to lactose; Translations: [Lactose intolerance, unspecified] Onset: 05-07-2015 05-17-2018 Chronic Other nutritional; endocrine; and metabolic disorders (18 sources) Obesity; Translations: [Obesity, unspecified] 05-17-2018 Chronic Other nutritional; endocrine; and metabolic disorders (20 sources) Body mass index 30+ - obesity; Translations: [Obesity, unspecified] Onset: 01-26-2023 02-04-2023 Chronic Other nutritional; endocrine; and metabolic disorders (2 sources) Obesity, unspecified; Translations: [Obesity, unspecified] 09-15-2023 Chronic Other upper respiratory disease (1 source) Seasonal allergy; Translations: [Other seasonal allergic rhinitis] Onset: 06-22-2017 06-22-2017 Chronic Other upper respiratory disease (20 sources) Seasonal allergic rhinitis; Translations: [Other seasonal allergic rhinitis] Onset: 08-10-2021 04-21-2020 Chronic Other upper respiratory infections (1 source) Chronic sinusitis, unspecified; Translations: [Unspecified sinusitis (chronic)] 07-09-2023 Chronic Other upper respiratory infections (17 sources) Acute sinusitis; Translations: [Acute sinusitis, unspecified] 09-22-2022 Episodic Pancreatic disorders (not diabetes) (15 sources) Chronic pancreatitis; Translations: [Other chronic pancreatitis] 05-25-2021 Chronic Pancreatic disorders (not diabetes) (16 sources) Disorder of pancreas; Translations: [Other specified diseases of pancreas] 07-01-2021 Episodic Residual codes; unclassified (20 sources) Sleep apnea; Translations: [Sleep apnea, unspecified] Onset: 05-07-2015 06-20-2022 Chronic Residual codes; unclassified (15 sources) Past history of procedure; Translations: [Other specified postprocedural states] 05-17-2018 Episodic Comment on above: 2011 Residual codes; unclassified (15 sources) History of colonoscopy; Translations: [Other specified postprocedural states] 05-17-2018 Episodic Comment on above: 04/2011 Residual codes; unclassified (1 source) Other specified postprocedural states; Translations: [Other postprocedural status] 04-01-2023 Episodic Residual codes; unclassified (1 source) Viral syndrome; Translations: [Other general symptoms and signs] 10-13-2023 Episodic Rheumatoid arthritis and related disease (20 sources) Rheumatoid arthritis; Translations: [Rheumatoid arthritis, unspecified] Onset: 06-22-2017 06-22-2017 Chronic Spondylosis; intervertebral disc disorders; other back problems (20 sources) Lumbar spondylosis; Translations: [Spondylosis without myelopathy or radiculopathy, lumbar region] Onset: 12-30-2016 10-08-2021 Chronic Spondylosis; intervertebral disc disorders; other back problems (20 sources) Backache; Translations: [Dorsalgia, unspecified] 09-24-2024 Episodic Comment on above: OCC Thyroid disorders (20 sources) Hypothyroidism; Translations: [Hypothyroidism, unspecified] Onset: 05-07-2015 07-09-2022 Chronic Unclassified (14 sources) High serum erythropoietin; Translations: [E61.1 - Iron deficiency,R71.8 - Other abnormality of red blood cells] Unclassified (1 source) Personal history of colon polyps, unspecified; Translations: [Personal history of colon polyps, unspecified] Onset: 06-20-2022 Unclassified (1 source) Low back pain, unspecified; Translations: [Low back pain, unspecified] Onset: 01-24-2025 Past or Other Problems Problem Classification Problem Date Documented Da te Episodic/Chronic Diseases of white blood cells (3 sources) Leukopenia; Translations: [Decreased white blood cell count, unspecified] Onset: 11-24-2012 Resolved: 03-15-2014 03-15-2014 Chronic Fluid and electrolyte disorders (20 sources) Hypokalemia; Translations: [Hypokalemia] Onset: 02-04-2023 02-04-2023 Episodic Immunizations and screening for infectious disease (17 sources) Contact with and (suspected) exposure to other viral communicable diseases; Translations: [Contact with or suspected exposure to other viral communicable disease] Onset: 11-24-2024 04-21-2020 Episodic Neoplasms of unspecified nature or uncertain behavior (17 sources) Neoplasm of pituitary gland; Translations: [Neoplasm of unspecified behavior of endocrine glands and other parts of nervous system] Onset: 02-06-2021 Episodic Nutritional deficiencies (20 sources) Iron deficiency; Translations: [Iron deficiency] Onset: 12-20-2024 Episodic Comment on above: Iron level is improv ing, now 62. Other and unspecified benign neoplasm (20 sources) Pituitary adenoma; Translations: [Benign neoplasm of pituitary gland] Onset: 02-03-2023 Episodic Other and unspecified benign neoplasm (3 sources) Benign neoplasm of pituitary gland; Translations: [Pituitary adenoma (HCC)] Onset: 02-03-2023 Episodic Other bone disease and musculoskeletal deformities (1 source) Pelvic somatic dysfunction; Translations: [Segmental and somatic dysfunction of pelvic region] Onset: 06-22-2017 06-23-2017 Episodic Other hematologic conditions (19 sources) Other abnormality of red blood cells; Translations: [High serum erythropoietin] Onset: 01-10-2025 01-09-2025 Episodic Comment on above: Need to R/O Malignan cy. CT on 01/04/2025 shows no malignancy. Other screening for suspected conditions (not mental disorders or infectious disease) (20 sources) Raised prostate specific antigen; Translations: [Elevated prostate specific antigen [PSA]] Onset: 02-11-2022 Episodic Pneumonia (except that caused by tuberculosis or sexually transmitted disease) (15 sources) Pneumonia; Translations: [Pneumonia, unspecified organism] Onset: 05-07-2015 06-20-2022 Episodic Residual codes; unclassified (16 sources) Family history of prostate cancer; Translations: [Family history of malignant neoplasm of prostate] Onset: 05-07-2015 06-20-2022 Episodic Residual codes; unclassified (15 sources) Family history of diabetes mellitus in first degree relative; Translations: [Family history of diabetes mellitus] Onset: 08-10-2021 06-20-2022 Episodic Residual codes; unclassified (2 sources) Family history of malignant neoplasm of prostate; Translations: [Family history of malignant neoplasm of prostate] Onset: 06-20-2022 Episodic Unclassified (2 sources) pre-diabetic Unclassified (1 source) Personal history of colon polyps, unspecified; Translations: [Personal history of colon polyps, unspecified] Onset: 07-11-2024 Results Test Name Value Interpretation Reference Range Facility Chiropractic Reporton 2024 Chiropractic Report [facility] Chiropractic [address] [place] [address] OFFICE VISIT Date of Service: 03/28/25 MR#: [id number] Acct: [id number] Name: MYRANDA OLEA Derrick Rep #: [id number] : 1960 Provider: MJ Pemberton Age/Sex: 64/M Location: [facility] [place] Status: Signed Intake Vital Signs 07/26/24 16:07 12/20/24 14:37 03/01/25 06:42 Height 5 ft 6.5 in 5 ft 6 in 5 ft 8 in Intake Visit Reasons: Back Pain Chief Complaint: neck and low back pain Allergies diltiazem (From Cardizem) Allergy (Unknown, Verified 03/28/25 17:24) PT UNSURE OF REACTION Milk Containing Products (Dairy) Adverse Reaction (Unknown, Verified 03/28/25 17:24) unknown Medications ???Medication ???Instructions ???Recorded ???Confirmed ???Type carvedilol 25 mg tablet 25 mg PO BID 12/22/15 03/28/25 His tory finasteride 5 mg tablet 5 mg PO DAILY 12/22/15 03/28/25 Hi story hydralazine 100 mg tablet 100 mg PO TID 12/22/15 03/28/25 Hi story lisinopril 40 mg tablet 40 mg PO DAILY 12/22/15 03/28/25 H istory multivitamin 1 tab PO DAILY 08/19/17 03/28/25 H istory hydrocortisone 2.5 % topical cream 1 applic topical BID PRN Skin 03/28/25 History Cleansing ketoconazole 2 % shampoo 1 applic topical QODAY 05/25/21 History oxybutynin chloride 10 mg 10 mg PO DAILY 05/25/21 03/28/25 H istory tablet,extended release 24 hr cholecalciferol (vitamin D3) 25 25 mcg PO DAILY 12/10/22 03/28/25 History mcg (1,000 unit) capsule sulfasalazine 500 mg 1.5 g PO BID 12/15/23 03/28/25 His tory tablet,delayed release levothyroxine 75 mcg tablet 75 mcg PO MOTUWETHFRSA 06/14/24 History lancets 33 gauge (OneTouch Delica #100 ea 10/15/24 03/28/25 Rx Plus Lancet) atorvastatin 20 mg tablet 10 mg PO QHS 12/05/24 03/28/25 His tory clonidine HCl 0.3 mg tablet 0.3 mg PO BID 12/05/24 03/28/25 Hi story clonidine HCl 0.3 mg tablet 0.6 mg PO QHS 12/05/24 03/28/25 Hi story hydrocortisone 10 mg tablet 10 mg PO TID 12/05/24 03/28/25 His tory ferrous sulfate 325 mg (65 mg 325 mg PO .2XWK 12/20/24 03/28/25 History iron) tablet (Feosol) blood sugar diagnostic (FreeStyle #100 ea 02/22/25 03/28/25 Rx Lite Strips) blood-glucose meter (FreeStyle #1 ea 02/22/25 03/28/25 Rx Cora Lite kit) lancets 28 gauge (FreeStyle #100 ea 02/22/25 03/28/25 Rx Lancets) hydrochlorothiazide 25 mg tablet 25 mg PO DAILY 02/27/25 03/28/25 H istory levothyroxine 75 mcg tablet 150 mcg PO CLEARY 02/27/25 03/28/25 Hi story dulaglutide 3 mg/0.5 mL 3 mg (0.5 mL) subcut QWEEK #2 mL 0 03/11/25 03/28/25 Rx subcutaneous pen injector ([employer]) [facility] Medical History Prostate disease Low iron Injury of back Dietary restriction Shortness of breath on exertion History of pain when walking History of edema Mixed hyperlipidemia Secondary adrenal insufficiency Acute sinusitis, unspecified Secondary hypothyroidism Pancreatic calcification Wears glasses Diabetes Thyroid disease Rheumatoid arthritis Bladder disease Anemia Back pain Non-smoker CPAP (continuous positive airway pressure) dependence Leg cramps Hypertension History of colon polyps Chronic pancreatitis Lactose intolerance DJD (degenerative joint disease), lumbar Eosinophilic esophagitis Hypertriglyceridemia Bilateral cataracts Seasonal allergies Anemia Segmental and somatic dysfunction of lumbar region Segmental and somatic dysfunction of thoracic region Segmental and somatic dysfunction of cervical region Acute cholecystitis Obesity Hypertension Rheumatoid arthritis Surgical History Hx of colonoscopy with polypectomy History of pituitary surgery History of esophagogastroduodenosco py (EGD) ( 05/29/18) S/P colonoscopy ( 05/29/18) History of esophagogastroduodenosco py (EGD) Hx of tonsillectomy Hx of colonoscopy Hx of cholecystectomy S/P cholecystectomy Family History Mother Cancer Hypertension Father Diabetes Prostate cancer Heart disease stent placed High cholesterol Hypertension Social History household members: spouse current occupational status: employed current occupation: [employer] Smoking Status: Never smoker alcohol intake: never substance use type: does not use HPI Back Pain Chief Complaint: Neck and Low Back Pain Visit Number: 6 Details: MYRANDA OLEA is a 64 year old male here to follow up on ongoing neck and low back discomfort. Pt. states he is experiencing some mild neck stiffness equal bilaterally. The discomfort extends into his traps and across hi (more content not included)... [facility] Gastroenterology Visit Repor ton 03-12-2025 Gastroenterology Visit Report [facility] Gastroenterology [address] [place] [address] OFFICE VISIT Date of Service: 03/12/25 MR#: [id number] Acct: [id number] Name: MYRANDA OLEA Rep #: [id number] : 1960 Provider: Mitchel Zuniga DO Age/Sex: 64/M Location: [facility] [place] Status: Signed Intake Vital Signs 03/01/25 06:42 Height 5 ft 8 in Intake Visit Reasons: Test Result Allergies diltiazem (From Cardizem) Allergy (Unknown, Verified 02/27/25 16:06) PT UNSURE OF REACTION Milk Containing Products (Dairy) Adverse Reaction (Unknown, Verified 02/27/25 16:06) unknown Medications ???Medication ???Instructions ???Recorded ???Confirmed ???Type carvedilol 25 mg tablet 25 mg PO BID 12/22/15 03/12/25 His tory finasteride 5 mg tablet 5 mg PO DAILY 12/22/15 03/12/25 Hi story hydralazine 100 mg tablet 100 mg PO TID 12/22/15 03/12/25 Hi story lisinopril 40 mg tablet 40 mg PO DAILY 12/22/15 03/12/25 H istory multivitamin 1 tab PO DAILY 08/19/17 03/12/25 H istory hydrocortisone 2.5 % topical cream 1 applic topical BID PRN Skin 03/12/25 History Cleansing ketoconazole 2 % shampoo 1 applic topical QODAY 05/25/21 History oxybutynin chloride 10 mg 10 mg PO DAILY 05/25/21 03/12/25 H istory tablet,extended release 24 hr cholecalciferol (vitamin D3) 25 25 mcg PO DAILY 12/10/22 03/12/25 History mcg (1,000 unit) capsule sulfasalazine 500 mg 1.5 g PO BID 12/15/23 03/12/25 His tory tablet,delayed release levothyroxine 75 mcg tablet 75 mcg PO MOTUWETHFRSA 06/14/24 History lancets 33 gauge ([employer] #100 ea 10/15/24 03/12/25 Rx Plus Lancet) atorvastatin 20 mg tablet 10 mg PO QHS 12/05/24 03/12/25 His tory clonidine HCl 0.3 mg tablet 0.3 mg PO BID 12/05/24 03/12/25 Hi story clonidine HCl 0.3 mg tablet 0.6 mg PO QHS 12/05/24 03/12/25 Hi story hydrocortisone 10 mg tablet 10 mg PO TID 12/05/24 03/12/25 His tory ferrous sulfate 325 mg (65 mg 325 mg PO .2XWK 12/20/24 03/12/25 History iron) tablet (Feosol) blood sugar diagnostic (FreeStyle #100 ea 02/22/25 03/12/25 Rx Lite Strips) blood-glucose meter (FreeStyle #1 ea 02/22/25 03/12/25 Rx Cora Lite kit) lancets 28 gauge (FreeStyle #100 ea 02/22/25 03/12/25 Rx Lancets) hydrochlorothiazide 25 mg tablet 25 mg PO DAILY 02/27/25 03/12/25 H istory levothyroxine 75 mcg tablet 150 mcg PO CLEARY 02/27/25 03/12/25 Hi story dulaglutide 3 mg/0.5 mL 3 mg (0.5 mL) subcut QWEEK #2 mL 0 03/11/25 03/12/25 Rx subcutaneous pen injector ([employer]) [facility] Medical History Prostate disease Low iron Injury of back Dietary restriction Shortness of breath on exertion History of pain when walking History of edema Mixed hyperlipidemia Secondary adrenal insufficiency Acute sinusitis, unspecified Secondary hypothyroidism Pancreatic calcification Wears glasses Diabetes Thyroid disease Rheumatoid arthritis Bladder disease Anemia Back pain Non-smoker CPAP (continuous positive airway pressure) dependence Leg cramps Hypertension History of colon polyps Chronic pancreatitis Lactose intolerance DJD (degenerative joint disease), lumbar Eosinophilic esophagitis Hypertriglyceridemia Bilateral cataracts Seasonal allergies Anemia Segmental and somatic dysfunction of lumbar region Segmental and somatic dysfunction of thoracic region Segmental and somatic dysfunction of cervical region Acute cholecystitis Obesity Hypertension Rheumatoid arthritis Surgical History Hx of colonoscopy with polypectomy History of pituitary surgery History of esophagogastroduodenosco py (EGD) ( 05/29/18) S/P colonoscopy ( 05/29/18) History of esophagogastroduodenosco py (EGD) Hx of tonsillectomy Hx of colonoscopy Hx of cholecystectomy S/P cholecystectomy Family History Mother Cancer Hypertension Father Diabetes Prostate cancer Heart disease stent placed High cholesterol Hypertension Social History household members: spouse current occupational status: employed current occupation: [employer] Smoking Status: Never smoker alcohol intake: never substance use type: does not use HPI HPI Details: MYRANDA OLEA, is a 64 M who presents to the office today for follow up. *BGI established 4.17.25, referred by Oncology/ Hematology for Anemia. LV reports Labs completed 12/05/2024 reveal hemoglobin of 12.4. Colonoscopy revealed tubular adenomas June 2024. He denies any heartburn, nausea, vomiting, weight loss or pain. EGD 6.27.25 Z-line irregu (more content not included)... [facility] Bedside Glucoseon 03-01-2025 FINGERSTICK GLU 108 mg/dL High 74-106 [facility] Comment on above: Result Comment: ANASTACIA KEYS OF PATIENT CARE PER NURSING PROTOCOL Performed By: #### L [id number] ####[facility] [id number] [facility] [address] [place], [place], [id number] EGD Reporton 03-01-2025 EGD Report [facility] Medical Records Department [address] [place] [address] EGD Report MR#: [id number] Acct: [id number] Name: LEFTYMYRANDA Meza Rep #: [id number] : 1960 64 From: Mitchel Zuniga DO PCP: Dr. William Amado DO Status:[facility] Patient Name: Myranda Olea Procedure Date: 03/01/2025 7:23 AM Date of : 1960 Age: 64 Procedure: Upper GI endoscopy Indications: Iron deficiency anemia, Celiac disease, Positive celiac serologies Providers: Mitchel Zuniga DO Referring MD: William Amado Medicines: Monitored Anesthesia Care Patient Profile: This is a 64 year old male. Refer to note in patient chart for documentation of history and physical. Patient has symptoms. Complications: No immediate complications. Procedure: Pre-Anesthesia Assessment: - Prior to the procedure, a History and Physical was performed, and patient medications and allergies were reviewed. The patient is competent. The risks and benefits of the procedure and the sedation options and risks were discussed with the patient. All questions were answered and informed consent was obtained. Patient identification and proposed procedure were verified by the physician. Mental Status Examination: normal. Respiratory Examination: clear to auscultation. Prophylactic Antibiotics: The patient does not require prophylactic antibiotics. Prior Anticoagulants: The patient has taken no anticoagulant or antiplatelet agents except for NSAID medication. ASA Grade Assessment: II - A patient with mild systemic disease. After reviewing the risks and benefits, the patient was deemed in satisfactory condition to undergo the procedure. The anesthesia plan was to use general anesthesia. Immediately prior to administration of medications, the patient was re-assessed for adequacy to receive sedatives. The heart rate, respiratory rate, oxygen saturations, blood pressure, adequacy of pulmonary ventilation, and response to care were monitored throughout the procedure. The physical status of the patient was re-assessed after the procedure. After obtaining informed consent, the endoscope was passed under direct vision. Throughout the procedure, the patient's blood pressure, pulse, and oxygen saturations were monitored continuously. The Endoscope was introduced through the mouth, and advanced to the fourth part of the duodenum. Small bowel enteroscopy was deemed necessary. The upper GI endoscopy was accomplished without difficulty. The patient tolerated the procedure well. Scope In: 7:42:03 AM Scope Out: 7:46:54 AM Total Procedure Duration Time 0 hours 4 minutes 51 seconds Findings: The Z-line was irregular and was found 40 cm from the incisors. Biopsies were taken with a cold forceps for histology. Verification of patient identification for the specimen was done. Estimated blood loss was minimal. Suspect gastroparesis due to absence of peristalsis, patient symptoms and retained gastric contents. Decreased folds were found in the duodenal bulb, scalloped mucosa was found in the entire duodenum and thickened folds were found in the entire duodenum. Biopsies for histology were taken with a cold forceps for evaluation of celiac disease. Verification of patient identification for the specimen was done. Estimated blood loss was minimal. Impression: - Z-line irregular, 40 cm from the incisors. Biopsied. - Gastroparesis, secondary to diabetes mellitus type II. - Duodenal mucosal changes seen, diagnostic of celiac disease. Biopsied. Recommendation: - Discharge patient to home. - Resume previous diet. - Continue present medications. - Await pathology results. Procedure Code(s): --- Professional --- 30530, Small intestinal endoscopy, enteroscopy beyond second portion of duodenum, not including ileum; with biopsy, single or multiple CPT copyright 2021 [employer]. All rights reserved. The codes documented in this report are preliminary and upon clinical manager review may be revised to meet current compliance requirements. Mitchel Zuniga DO 03/01/2025 7:52:13 AM This report has been signed electronically. Number of Addenda: 0 Note Initiated On: 03/01/2025 7:23 AM 03/01/25 0752 Date Mitchel Zuniga DO Cosigner Signature: Date (if indicated) CC: Dr. William Amado DO; Mitchel Zuniga DO Date Dictated: 03/01/25 07 Date Transcribed: Contractor General Building: [facility] Signed [facility] deOrdered By: Mitchel Zuniga on 03-01-2025 Glucose [Mass/Vol] 108 mg/dL High 74-106 [facility] Comment on above: MANAGEMENT OF PATIEN T CARE PER NURSING PROTOCOL MR/POSTOP.Ruben 03-01-2025 MR/POSTOP.[facility] Medical Records Department [address] [place] [address] Anesthesia Postop Eval I 03/01/25 075 MR#: [id number] Acct: [id number] Name: MYRANDA OLEA P Rep #: [id number] : 1960 64 From: Estelle Palmer CRNA PCP: Dr. William Amado, DO Status:[facility] Y Race: C Location: [place] [address] Anesthesia: Postop Eval I Current Vital Signs Temperature: 97.2 F Pulse Rate: 90 Blood Pressure: 110/87 Respiratory Rate: 20 Pulse Ox: 98 Assessment Airway patent: Yes Spontaneous unlabored respirations: Yes nausea: No Vomiting: No Anesthesia Complication: No Fluid Hydration Crystalloid volume administer (ml): 300 Total IV fluid infused: 300 Progress Note Anesthesia document: Postop Eval 1 completed: Yes 03/01/25753 Date Estelle Palmer CRNA Cosigner Signature: Date CC: Signed [facility] MR/[id number] 03-01-2025 /[facility] Medical Records Department [address] [place] [address] Anesthesia Postop Eval II 03/01/25 0903 MR#: [id number] Acct: [id number] Name: MYRANDA OLEA P Rep #: [id number] : 1960 64 From: Estelle Palmer CRNA PCP: Dr. William Amado, DO Status:[facility] Y Race: C Location: [place] Anesthesia Postop Eval I Sum Postop Eval Completion status Anesthesia document: Postop Eval 1 completed: Yes Anesthesia Postop Eval I Summary Anesthesia Postop Eval I Summary: Anesthesia Postop Eval I: Assessment Summary Airway patent Yes 03/01/25 07:53 PRIMARY COUNSELOR.CSIR Spontaneous unlabored Yes 03/01/25 07:53 PRIMARY COUNSELOR.CSIR respirations Mental status nausea No 03/01/25 07:53 PRIMARY COUNSELOR.CSIR Vomiting No 03/01/25 07:53 PRIMARY COUNSELOR.CSIR Anesthesia Postop Eval I: Fluid Summary Crystalloid volume administer 300 03/01/25 07:53 PRIMARY COUNSELOR.CSIR (ml) Colloids volume administered ( ml) Blood Product volume administered (ml) Total IV fluid infused 300 03/01/25 07:53 PRIMARY COUNSELOR.CSIR Anesthesia Postop Eval I: Summary Notes Anesthesia Complication No 03/01/25 07:53 PRIMARY COUNSELOR.CSIR Anesthesia Complication Comment: Post-operative progress note Anesthesia: Postop Eval II Evaluation Mental status: Awake Pain Level: 0 nausea: No Vomiting: No 03/01/25902 Date Estelle Palmer PRIMARY COUNSELOR Cosigner Signature: Date CC: Signed [facility] Surgery Specimen Level Wing 03-01-2025 Surgery Specimen Level IV Patient Age/Sex Location Account Attending Physician MYRANDA OLEA P 64/M EN [id number] Mitchel Zuniga DO Specimen: [id number] Received: 03/01/25 Status: GERMAIN Tao Num: [id number] Spec Type: EGD BIOPSY Subm Dr: DO GIANNA Rodriguez OPERATION: EGD and biopsy PRE-OP DIAGNOSIS: Anemia, celiac disease TISSUE SUBMITTED: A- Duodenum biopsy, B- Distal esophagus biopsy MICROSCOPIC DIAGNOSIS A. Duodenum, biopsy: - Normal villous architecture with Bogdan gland hyperplasia. - Negative for increased intraepithelial lymphocytes. B. Distal esophagus, biopsy: - Columnar mucosa with reactive changes, negative for goblet cell metaplasia. - No squamous mucosa seen in these sections. MICROSCOPIC DESCRIPTION Slides are reviewed. GROSS DESCRIPTION A. Received in fixative is one container labeled with the patient's name and designated Duodenum biopsy. The specimen consists of multiple irregular fragments of light dsouza soft tissue that in aggregate measure 1.3 x 0.5 x 0.1 cm. The specimen is totally submitted in one cassette. B. Received in fixative is one container labeled with the patient's name and designated Distal esophagus biopsy. The specimen consists of three irregular fragments of light dsouza soft tissue that in aggregate measure 0.4 to 0.5 cm. The specimen is totally submitted in one cassette. AKCarlos 03/01/2025 CPT:52286s2 Patient Age/Sex Location Account Attending Physician MYRANDA OLEA 64/M EN [id number] Mitchel Zuniga DO Signed (signature on file) Dr. Jaci Li MD 03/11/25 1539 [facility] Comment on above: Performed By: #### L [id number] #### [facility] [address] [place], [id number] /Sean 02-27-2025 /MELISSA [facility] Medical Records Department [address] [place] [address] PAT - Anesthesia 02/27/25 2259 MR#: [id number] Acct: [id number] Name: MYRANDA OLEA Rep #: [id number] : 1960 64 From: Amrit Koehler MD PCP: Dr. 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 When Was Last Pacemaker Check QUESTION #4 FULL TEXT: You/Your Family Experience fever (hyperthermia) with Anesthesia Last Oral Intake Last Oral intake: Last Oral Intake NPO since Meds taken in AM with sips of water? 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 Female No 02/27/25 16:15 HX of Motion Sickness No 02/27/25 16:15 HX of N/V After Surgery No 02/27/25 16:15 Non-Smoker Yes 02/27/25 16:15 Duration of Surgery greater No 02/27/25 16:15 than 60 minutes Number of Risk Factors 1 02/27/25 16:15 PONV Score Low Risk 02/27/25 16:15 Height Weight Height Weight: Anesthesia: Height Weight Height 5 ft 6 in 12/20/24 14:37 Respiratory Assessment Respiratory Assessment - executive chairman of the board: Respiratory Tract Infection Hx - executive chairman of the board Hx Respiratory Tract Infection No 02/27/25 16:15 STOP Sleep Apnea STOP Sleep Apnea - executive chairman of the board: STOP Sleep Apnea - executive chairman of the board Hx Hypertension Yes: CONTROLLED WITH MEDS 02/27/25 16:15 Hx Sleep Apnea Yes 02/27/25 16:15 CPAP Yes 02/27/25 16:15 BIPAP No 02/27/25 16:15 Do you snore loudly (louder than talking or can be heard Do you often feel tired/ fatigued/ sleepy during daytime? Has anyone observed you stop breathing during sleep? STOP Results Positive 02/27/25 16:15 QUESTION #5 FULL TEXT : Do you snore loudly (louder than talking or can be heard through closed doors)? 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 Specify any problems Hx of Preganancy in last 3 N/A 02/27/25 16:15 Months Nurse Filling Out Transfusion DSCHRIBER 02/27/25 16:15 Questions: Date: 02/27/25 02/27/25 16:15 Time: 16:16 02/27/25 16:15 Patient unable to answer at this time (ie. 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: /Reproductive Hx- executive chairman of the board Hx Now No 02/27/25 16:15 Gestational Age (in weeks): EDC: Hx Hx Para Hx Section SAB No 02/27/25 16:15 PFSH Medical History (Updated 02/27/25 @ 16:23 by Milady Morris) Prostate disease Low iron Injury of back Dietary restriction Shortness of breath on exertion History of pain when walking History of edema Mixed hyperlipidemia Secondary adrenal insufficiency Acute sinusitis, unspecified Secondary hypothyroidism Pancreatic calcification Wears glasses Diabetes Thyroid disease Rheumatoid arthritis Bladder disease Anemia Back pain Non-smoker CPAP (continuous positive airway pressure) dependence Leg cramps Hypertension History of colon polyps Chronic pancreatitis Lactose intolerance DJD (degenerative joint disease), lumbar Eosinophilic esophagitis Hypertriglyceridemia Bilateral cataracts Seasonal allergies Anemia Segmental and somatic dysfunction of lumbar region Segmental and somatic dysfunction of thoracic region Segmental and somatic dysfunction of cervical region Acute cholecystitis Obesity Hypertension Rheumatoid arthritis Home M (more content not included)... [facility] Chiropractic Reporton 2024 Chiropractic Report [facility] Chiropractic [facility] [place] [address] OFFICE VISIT Date of Service: 02/21/25 MR#: [id number] Acct: [id number] Name: MYRANDA OLEA Rep #: [id number] : 1960 Provider: MJ Steele Do ssi Age/Sex: 64/M Location: [facility] [place] Status: Signed Intake Vital Signs 07/26/24 16:07 02/21/25 16:11 Height 5 ft 6.5 in 5 ft 6 in Weight: 242 lb 4 oz BMI 39.1 BP 153/88 H Blood Pressure Location Rt brachial Position Sitting Pulse 63 Pulse Source Monitor Pulse Oximetry (%) 96 Oxygen Delivery Method room air Intake Visit Reasons: Back Pain Chief Complaint: neck and low back pain Allergies diltiazem (From Cardizem) Allergy (Unknown, Verified 02/21/25 17:35) PT UNSURE OF REACTION Milk Containing Products (Dairy) Adverse Reaction (Unknown, Verified 02/21/25 17:35) unknown PFSH Medical History Mixed hyperlipidemia Secondary adrenal insufficiency Uncontrolled hypertension Acute sinusitis, unspecified Diabetes Secondary hypothyroidism Pancreatic calcification Wears glasses Diabetes Thyroid disease Rheumatoid arthritis Bladder disease Anemia Excessive bleeding Back pain Non-smoker CPAP (continuous positive airway pressure) dependence Leg cramps Hypertension History of colon polyps Chronic pancreatitis Lactose intolerance DJD (degenerative joint disease), lumbar Eosinophilic esophagitis Hypertriglyceridemia Bilateral cataracts Seasonal allergies Anemia Segmental and somatic dysfunction of lumbar region Segmental and somatic dysfunction of thoracic region Segmental and somatic dysfunction of cervical region Acute cholecystitis Obesity Hypertension Rheumatoid arthritis Surgical History History of pituitary surgery History of esophagogastroduodenosco py (EGD) ( 05/29/18) S/P colonoscopy ( 05/29/18) History of esophagogastroduodenosco py (EGD) Hx of tonsillectomy Hx of colonoscopy Hx of cholecystectomy S/P cholecystectomy Family History Mother Cancer Hypertension Father Diabetes Prostate cancer Heart disease stent placed High cholesterol Hypertension Social History household members: spouse current occupational status: employed current occupation: [employer] Smoking Status: Never smoker alcohol intake: never substance use type: does not use HPI Back Pain Chief Complaint: Neck and Low Back Pain Visit Number: 5 Details: MYRANDA OLEA is a 64 year old male here to follow up on ongoing neck and low back discomfort. Pt. states he is experiencing some mild neck stiffness equal bilaterally. The discomfort extends into his traps and across his shoulder blades. He also c/o low back soreness equal L injury, numbness, tingling or radiculopathy at this time. Graeme reports chiropractic adjustments are effective in relieving his discomfort but it gradually returns. Location: Neck, low back Duration: Frequent Aggravating or associated factors: Bending, reaching, cold weather Relieving factors: Chiro Pain Quality: aching, dull and cramping Exam Musc General: Yes normal posture, normal gait, joint tenderness and decreased range of motion Cervical Spine: Yes loss of normal cervical lordosis, Yes cervical muscular tenderness right greater than left lower trapezius, Yes cervical spasm (scalene, trap) right greater than left lower trapezius and paracervical muscles and Yes misalignment misalignment: C5 and C6 Thoracic/Lumber: Yes thoracic and lumbar spine normal to inspection, Yes paraspinal tenderness bilaterally in the upper thoracic and in the mid thoracic and on the left greater than right (lumbopelvic), Yes thoraco-lumbar spasm bilaterally (trap, QL) in the upper thoracic (trap, levator) and in the mid thoracic and on the left greater than right (paraspinal L3-S1, glute med) and Yes misalignment T1, T2, T3, T6, T7, T8, L3, L4, L5 and LIL Sacroiliac joints: on the left tender to palpation Office Procedures Procedures - Chiropractic Procedures Manipulation: Cervical C6, Lumbar L4, Thoracic T2 and T7 and Pelvis LIL Manipulation: 3-4 regions Traction, Mechanical: Yes Patient Response: positive Results POC A1C POC A1C 5.2 % Last Edit by Jae Goel RN on 02/21/25 16:21 Assessment and Plan Assessment and Plan (1) Segmental and somatic dysfunction of cervical region: Status: Acute (2) Segmental and somatic dysfunction of thoracic region: Status: Acute (3) Segmental and somatic dysfunction of lumbar region: Status: Acute (4) Rheumatoid arthritis: Status: Chronic Qualifiers: Rheum (more content not included)... Normal [facility] Endocrinology Visit Reporton 02-21-2025 Endocrinology Visit Report [facility] [address] [place] [address] OFFICE VISIT Date of Service: 02/21/25 MR#: [id number] Acct: [id number] Name: MYRANDA OLEA Derrick Rep #: [id number] : 1960 Provider: Adi Houser Age/Sex: 64/M Location: [facility] [place] Status: Signed Intake Vital Signs 07/26/24 16:07 12/05/24 13:55 01/09/25 13:42 02/21/25 16:11 Height 5 ft 6.5 in 5 ft 6.5 in 5 ft 6 in 5 ft 6 in Weight: 242 lb 4 oz BMI 39.1 BP 153/88 H Blood Pressure Location Rt brachial Position Sitting Pulse 63 Pulse Source Monitor Pulse Oximetry (%) 96 Oxygen Delivery Method room air Intake Visit Reasons: 6 M FU Chief Complaint: Diabetes/pituitary Is patient in pain?: No Allergies diltiazem (From Cardizem) Allergy (Unknown, Verified 02/21/25 17:35) PT UNSURE OF REACTION Milk Containing Products (Dairy) Adverse Reaction (Unknown, Verified 02/21/25 17:35) unknown Medications ???Medication ???Instructions ???Recorded ???Confirmed ???Type carvedilol 25 mg tablet 25 mg PO BID 12/22/15 02/21/25 His tory finasteride 5 mg tablet 5 mg PO DAILY 12/22/15 02/21/25 Hi story hydralazine 100 mg tablet 100 mg PO TID 12/22/15 02/21/25 Hi story lisinopril 40 mg tablet 40 mg PO DAILY 12/22/15 02/21/25 H istory multivitamin 1 tab PO DAILY 08/19/17 02/21/25 H istory hydrocortisone 2.5 % topical cream 1 applic topical BID PRN Skin 02/21/25 History Cleansing ketoconazole 2 % shampoo 1 applic topical QODAY 05/25/21 History oxybutynin chloride 10 mg 10 mg PO DAILY 05/25/21 02/21/25 H istory tablet,extended release 24 hr cholecalciferol (vitamin D3) 25 25 mcg PO DAILY 12/10/22 02/21/25 History mcg (1,000 unit) capsule sulfasalazine 500 mg 1,000 mg PO BID 12/15/23 02/21/25 History tablet,delayed release levothyroxine 75 mcg tablet 75 mcg PO DAILY 06/14/24 02/21/25 History lancets 33 gauge (OneHaouch Milvia #100 ea 10/15/24 01/24/25 Rx Plus Lancet) atorvastatin 20 mg tablet 10 mg PO QPM 12/05/24 02/21/25 His tory clonidine HCl 0.3 mg tablet 0.3 mg PO BID 12/05/24 02/21/25 Hi story clonidine HCl 0.3 mg tablet 0.6 mg PO QHS 12/05/24 02/21/25 Hi story hydrocortisone 10 mg tablet 10 mg PO BID 12/05/24 02/21/25 His tory Trulicity 1.5 mg/0.5 mL 1.5 mg (0.5 mL) subcut QWEEK #2 mL 12/20/24 02/21/25 Rx subcutaneous pen injector (dulaglutide) ferrous sulfate 325 mg (65 mg 325 mg PO .2XWK 12/20/24 02/21/25 History iron) tablet (Feosol) levothyroxine 75 mcg tablet 75 mcg PO .qd, 2 on Sundays #102 0 02/07/25 02/21/25 Rx tabs tirzepatide 5 mg/0.5 mL 5 mg (0.5 mL) subcut QWEEK #2 mL 0 02/21/25 02/21/25 Rx subcutaneous pen injector (Mounjaro) blood sugar diagnostic (FreeStyle #100 ea 02/22/25 Rx Lite Strips) blood-glucose meter (FreeStyle #1 ea 02/22/25 Rx Cora Lite kit) lancets 28 gauge (FreeStyle #100 ea 02/22/25 Rx Lancets) [facility] Medical History Mixed hyperlipidemia Secondary adrenal insufficiency Uncontrolled hypertension Acute sinusitis, unspecified Diabetes Secondary hypothyroidism Pancreatic calcification Wears glasses Diabetes Thyroid disease Rheumatoid arthritis Bladder disease Anemia Excessive bleeding Back pain Non-smoker CPAP (continuous positive airway pressure) dependence Leg cramps Hypertension History of colon polyps Chronic pancreatitis Lactose intolerance DJD (degenerative joint disease), lumbar Eosinophilic esophagitis Hypertriglyceridemia Bilateral cataracts Seasonal allergies Anemia Segmental and somatic dysfunction of lumbar region Segmental and somatic dysfunction of thoracic region Segmental and somatic dysfunction of cervical region Acute cholecystitis Obesity Hypertension Rheumatoid arthritis Surgical History History of pituitary surgery History of esophagogastroduodenosco py (EGD) ( 05/29/18) S/P colonoscopy ( 05/29/18) History of esophagogastroduodenosco py (EGD) Hx of tonsillectomy Hx of colonoscopy Hx of cholecystectomy S/P cholecystectomy Family History Mother Cancer Hypertension Father Diabetes Prostate cancer Heart disease stent placed High cholesterol Hypertension Social History household members: spouse current occupational status: employed current occupation: [employer] Smoking Status: Never smoker alcohol intake: never substance use type: does not use HPI HPI Chief Complaint: Diabetes/pituitary Details: MYRANDA OLEA, is a 64 M who presents to (more content not included)... Normal [facility] Laboratory - Hematology and Cell countsOrdered By: Monika Lovett on 02-21-2025 HbA1c (Bld) [Mass fraction] 5.2 % 4.2-6.3 [facility] 36on 01-25-2025 36 Recent Visits Date Type Provider Dept 01/10/25 Office Visit William Amado DO [facility] 07/11/24 Office Visit William Amado DO [facility] Showing recent visits within past 365 days and meeting all other requirements Future Appointments No visits were found meeting these conditions. Showing future appointments within next 90 days and meeting all other requirements Requested Prescriptions Pending Prescriptions Disp Refills hydrALAZINE (Apresoline) 100 MG tablet [Pharmacy Med Name: HYDRALAZINE HCL 100MG TABS] 270 tablet 1 Sig: TAKE ONE TABLET BY MOUTH THREE TIMES A DAY Provider: William Amado DO Verified pharmacy: yes Verified day(s) supplied: yes Verified refill(s) needed (previous prescription showing no refills in chart): Yes Have you received any controlled medications from any other provider? N/A Overdue for visit: No If yes - patient scheduled? Yes - 07/25/2025 Most recent labs completed in chart? Yes Hypertension: Lab Results Component Value Date NA 140 02/11/2022 K 4.4 02/11/2022 BUN 23 (H) 02/11/2022 CREATININE 0.95 02/11/2022 Normal [facility] Chiropractic Reporton 2024 Chiropractic Report [facility] Chiropractic [facility] [place] [address] OFFICE VISIT Date of Service: 01/24/25 MR#: [id number] Acct: [id number] Name: MYRANDA OLEA Derrick Rep #: [id number] : 1960 Provider: MJ Pemberton Age/Sex: 64/M Location[place] [facility] [place] Status: Signed Intake Vital Signs 07/26/24 16:07 01/09/25 13:42 Height 5 ft 6.5 in 5 ft 6 in Intake Visit Reasons: Back Pain Chief Complaint: Back pain Is patient in pain?: Yes (Neck, back) Pain scale (1-10): 9 Allergies diltiazem (From Cardizem) Allergy (Unknown, Verified 01/24/25 17:35) PT UNSURE OF REACTION Milk Containing Products (Dairy) Adverse Reaction (Unknown, Verified 01/24/25 17:35) unknown Medications ???Medication ???Instructions ???Recorded ???Confirmed ???Type carvedilol 25 mg tablet 25 mg PO BID 12/22/15 01/24/25 His tory finasteride 5 mg tablet 5 mg PO DAILY 12/22/15 01/24/25 Hi story hydralazine 100 mg tablet 100 mg PO TID 12/22/15 01/24/25 Hi story lisinopril 40 mg tablet 40 mg PO DAILY 12/22/15 01/24/25 H istory multivitamin 1 tab PO DAILY 08/19/17 01/24/25 H istory hydrocortisone 2.5 % topical cream 1 applic topical BID PRN Skin 01/24/25 History Cleansing ketoconazole 2 % shampoo 1 applic topical QODAY 05/25/21 History oxybutynin chloride 10 mg 10 mg PO DAILY 05/25/21 01/24/25 H istory tablet,extended release 24 hr cholecalciferol (vitamin D3) 25 25 mcg PO DAILY 12/10/22 01/24/25 History mcg (1,000 unit) capsule sulfasalazine 500 mg 1,000 mg PO BID 12/15/23 01/24/25 History tablet,delayed release levothyroxine 75 mcg tablet 75 mcg PO DAILY 06/14/24 01/24/25 History levothyroxine 75 mcg tablet 150 mcg PO CLEARY 06/14/24 01/24/25 Hi story (Euthyrox) blood sugar diagnostic (OneTouch #100 ea 07/26/24 01/24/25 Rx Verio test strips) blood-glucose meter (OneTouch #1 ea 07/26/24 01/24/25 Rx Verio Reflect Meter) lancets 33 gauge (OneTouch Delica #100 ea 10/15/24 01/24/25 Rx Plus Lancet) acetaminophen 650 mg 650 mg PO Q8H 11/20/24 01/24/25 Hi story tablet,extended release atorvastatin 20 mg tablet 10 mg PO QPM 12/05/24 01/24/25 His tory clonidine HCl 0.3 mg tablet 0.3 mg PO BID 12/05/24 01/24/25 Hi story clonidine HCl 0.3 mg tablet 0.6 mg PO QHS 12/05/24 01/24/25 Hi story hydrocortisone 10 mg tablet 10 mg PO BID 12/05/24 01/24/25 His tory Trulicity 1.5 mg/0.5 mL 1.5 mg (0.5 mL) subcut QWEEK #2 mL 12/20/24 01/24/25 Rx subcutaneous pen injector (dulaglutide) ferrous sulfate 325 mg (65 mg 325 mg PO .2XWK 12/20/24 01/24/25 History iron) tablet (Feosol) [facility] Medical History Mixed hyperlipidemia Secondary adrenal insufficiency Uncontrolled hypertension Acute sinusitis, unspecified Diabetes Secondary hypothyroidism Pancreatic calcification Wears glasses Diabetes Thyroid disease Rheumatoid arthritis Bladder disease Anemia Excessive bleeding Back pain Non-smoker CPAP (continuous positive airway pressure) dependence Leg cramps Hypertension History of colon polyps Chronic pancreatitis Lactose intolerance DJD (degenerative joint disease), lumbar Eosinophilic esophagitis Hypertriglyceridemia Bilateral cataracts Seasonal allergies Anemia Segmental and somatic dysfunction of lumbar region Segmental and somatic dysfunction of thoracic region Segmental and somatic dysfunction of cervical region Acute cholecystitis Obesity Hypertension Rheumatoid arthritis Surgical History History of pituitary surgery History of esophagogastroduodenosco py (EGD) ( 05/29/18) S/P colonoscopy ( 05/29/18) History of esophagogastroduodenosco py (EGD) Hx of tonsillectomy Hx of colonoscopy Hx of cholecystectomy S/P cholecystectomy Family History Mother Cancer Hypertension Father Diabetes Prostate cancer Heart disease stent placed High cholesterol Hypertension Social History household members: spouse current occupational status: employed current occupation: [employer] Smoking Status: Never smoker alcohol intake: never substance use type: does not use HPI Back Pain Chief Complaint: Neck and Low Back Pain Visit Number: 4 Details: MYRANDA OLEA is a 64 year old male here to follow up on ongoing neck and low back discomfort. He complains of increased pain due to the cool rainy weather. He also has been doing a lot of yard work which has also exacerbated his pain. Pt. complains of neck pain and stiffness that is worse on the right. The pain extends into his traps and across his shoulder bl (more content not included)... [facility] 36on 01-10-2025 36 PT stated he has ano ther Doc appointment in a few weeks wanted to call in and let us know what the BP is. Said he is in [place] and to get here during times he would have to take off work and is trying not to have to do that. Normal [facility] Gastroenterology Visit Repor ton 01-10-2025 Gastroenterology Visit Report [facility]enter[facility] [address] [place] [address] OFFICE VISIT Date of Service: 01/10/25 MR#: [id number] Acct: [id number] Name: MYRANDA OLEA Rep #: [id number] : 1960 Provider: Mitchel Zuniga DO Age/Sex: 64/M Location: [facility] [place] Status: Signed Intake Vital Signs 12/20/24 14:37 01/09/25 13:42 Height 5 ft 6 in 5 ft 6 in Weight: 241 lb 8 oz BMI 38.9 BP 185/94 H Blood Pressure Location Lt brachial Position Sitting Respiration 18 Pulse 64 Pulse Source Monitor Temp 98.4 F Pulse Oximetry (%) 97 Oxygen Delivery Method room air Intake Visit Reasons: Anemia Chief Complaint: F/u for CT results. Allergies diltiazem (From Cardizem) Allergy (Unknown, Verified 01/09/25 13:41) PT UNSURE OF REACTION Milk Containing Products (Dairy) Adverse Reaction (Unknown, Verified 01/09/25 13:41) unknown PFSH Medical History Mixed hyperlipidemia Secondary adrenal insufficiency Uncontrolled hypertension Acute sinusitis, unspecified Diabetes Secondary hypothyroidism Pancreatic calcification Wears glasses Diabetes Thyroid disease Rheumatoid arthritis Bladder disease Anemia Excessive bleeding Back pain Non-smoker CPAP (continuous positive airway pressure) dependence Leg cramps Hypertension History of colon polyps Chronic pancreatitis Lactose intolerance DJD (degenerative joint disease), lumbar Eosinophilic esophagitis Hypertriglyceridemia Bilateral cataracts Seasonal allergies Anemia Segmental and somatic dysfunction of lumbar region Segmental and somatic dysfunction of thoracic region Segmental and somatic dysfunction of cervical region Acute cholecystitis Obesity Hypertension Rheumatoid arthritis Surgical History History of pituitary surgery History of esophagogastroduodenosco py (EGD) ( 05/29/18) S/P colonoscopy ( 05/29/18) History of esophagogastroduodenosco py (EGD) Hx of tonsillectomy Hx of colonoscopy Hx of cholecystectomy S/P cholecystectomy Family History Mother Cancer Hypertension Father Diabetes Prostate cancer Heart disease stent placed High cholesterol Hypertension Social History household members: spouse current occupational status: employed current occupation: [employer] Smoking Status: Never smoker alcohol intake: never substance use type: does not use HPI HPI Chief Complaint: F/u for CT results. Details: MYRANDA OLEA, is a 64 M who presents to the office today for follow up. [facility]GI established 4.., referred by Oncology/ Hematology for Anemia. LV reports Labs completed 12/05/2024 reveal hemoglobin of 12.4. Colonoscopy revealed tubular adenomas June 2024. He denies any heartburn, nausea, vomiting, weight loss or pain. ROS Const Constitutional: Positive for fatigue; No fever(s) or weight change ENT ENT: No difficulty swallowing Gastro GI: Positive for bloating and excessive flatus; No abdominal pain, belching, change in bowel habits, change in stool character, coffee ground emesis, constipation, cramping, diarrhea, heartburn, difficulty swallowing, feeling full early, incontinent of stools, Vomiting blood/hematemesis, Blood in stool, loose stools, Black,tarry stools, nausea/dyspepsia, pain with swallowing, vomiting or other Musc Musculoskeletal: Positive for joint pain and joint swelling Skin Skin: No yellowing of the eye or itchy eyes Psych Psychiatric: No anxiety and No depression Endo Endocrine: Positive for fatigue; No weight change Aller/Imm Allergy/Immunologic: No itchy eyes Adonay/Lymp Hematologic/Lymphatic: No easy bleeding or easy bruising Exam Const General: cooperative, healthy appearing, no acute distress and well developed Nutritional Appearance: average body habitus and well nourished Orientation: alert and oriented x3 [facility] Head: normocephalic Ears: hearing grossly normal bilaterally Mouth: moist mucous membranes Teeth and gingiva: dentition normal Eyes Conjunctivae: conjunctivae normal Sclera: sclerae normal Neck Neck: normal visual inspection, full ROM and trachea midline Resp Effort Inspection: normal respiratory effort, able to speak in complete sentences and symmetric chest movement Auscultation: Bilateral: Clear to Auscultation Cardio Rate: regular rate Rhythm: regular rhythm GI Inspection: normal to inspection Auscultation: normal bowel sounds Palpation: soft and no hepatosplenomegaly Rectal Exam: deferred Skin General: no rashes or lesions noted and turgor normal Neuro General: patient alert and patient oriented x3 Cranial Nerve (more content not included)... Normal [facility] Office Visiton 01-10-2025 Follow-up visit [id number] Paolo Olea 1960 M Date Provider Department Center 01/10/2025 [id number] AMADO Catina [facility] Family History Problem Relation Age of Onset Lung cancer Mother 79 Comments: adeno [place], nonsmoker, age 81 in 07/2022 High Blood Pressure Mother Lymphoma Mother Comments: lymphoma Diabetes Father Prostate cancer Father 55 Comments: at age 70 in 2008 Coronary artery disease Father Prostate cancer Brother 52 Comments: s/p prostatectomy Hypertension Brother Comments: alive age 54 Prostate cancer Brother 55 Comments: age 60 in 03/26 mets to bone, spinal cord comp Hypertension Maternal Grandmother Comments: in 80s, COPD Maternal Grandfather Comments: miners lung, [place] Diabetes Paternal Grandmother Comments: age 70 Diabetes Paternal Grandfather Family Status - Relation Status Age at Mother Father 70 Brother Alive Brother Maternal Grandmother Maternal Grandfather Paternal Grandmother Paternal Grandfather Level of Service:[id number] [place] OFFICE/OUTPATIENT ESTABLISHED MOD MDM 30 MIN Reason for Visit and Comments: Follow-up [917956] - Med check Normal [facility] Progress Noteon 01-10-2025 Progress Note [facility] - [address] [facility] [id number] Visit type: Established Patient Reason for Visit: Follow-up (Med check) Assessment / Plan: Graeme was seen today for follow-up. Diagnoses and all orders for this visit: Essential hypertension (Primary) Comments: Uncontrolled, add HCTZ, continue all meds recheck BP 4 weeks Hypertriglyceridemia Comments: Stable, continue Lipitor Orders: - Lipid panel; Future - Lipid panel Anemia of chronic disease Comments: Improved, await EGD Elevated prostate specific antigen less than 10 ng/ml Comments: Noted, follow-up with urology for refills on Proscar Prediabetes Comments: Improving, recommend increasing Trulicity Inflammatory arthritis Comments: Stable, continue sulfasalazine Celiac disease Other orders - atorvastatin (Lipitor) 10 MG tablet; Take 1 tablet (10 mg) by mouth Nightly for 360 doses. - hydrALAZINE (Apresoline) 100 MG tablet; Take 1 tablet (100 mg) by mouth 3 times daily. - cloNIDine (Catapres) 0.3 MG tablet; One q AM , one q afternoon, then 2 q PM - carvedilol (Coreg) 25 MG tablet; Take 1 tablet (25 mg) by mouth 2 times daily (with meals). - lisinopril 40 MG tablet; Take 1 tablet (40 mg) by mouth daily. - Pneumococcal conjugate vaccine 20-valent IM (PREVNAR 20) - hydroCHLOROthiazide (HYDRODiuril) 25 MG tablet; Take 1 tablet (25 mg) by mouth daily. Subjective: Patient ID: Myranda Olea is a 64 y.o. male. HPI hypertension lipid management patient with prediabetes, history of elevated PSA, hypertriglyceridemia and chronic anemia probably due to either inflammatory arthritis or even celiac disease. Extensive records reviewed. Will be getting EGD for complete workup for anemia. Recent CT of the abdomen and chest apparently unremarkable. Colonoscopy was negative in June 2020 for Review of Systems he feels better. Little more energy. No recent earache sore throat or cough. Recent MRI of the head for surveillance for pituitary adenoma also very stable. No chest pain shortness of breath or cough or wheezing. No dysphagia abdominal pain. No melena or blood or early satiety. Bowels are pretty regular. No dysuria. Of note sees urology for elevated PSA and on Proscar. It is now above 4. To have a recheck study done in 6 months Allergies Allergen Reactions Milk (Cow) Other reaction(s): GI Upset cough, diarrhea, scratchy throat Other reaction(s): GI Upset Diltiazem Other reaction(s): Other (See Comments) edema Other reaction(s): Unknown Milk-Related Compounds Other reaction(s): Other (See Comments) Lactose intolerant Other reaction(s): Diarrhea Other reaction(s): Diarrhea Current Outpatient Medications: acetaminophen (Tylenol 8 Hour) 650 MG ER tablet, Take 650 mg by mouth every 8 hours as needed for mild pain (1-3). Do not crush, chew, or split., Disp: , Rfl: Blood Glucose Monitoring Suppl ([employer] Verio Flex System) w/Device kit, , Disp: , Rfl: cholecalciferol (Vitamin D3) 25 MCG (1000 UT) tablet, Take by mouth daily., Disp: , Rfl: Ferrous Sulfate (iron) 325 (65 Fe) MG tablet, Take 65 mg by mouth Twice a Week., Disp: , Rfl: finasteride (Proscar) 5 MG tablet, Take 1 tablet (5 mg) by mouth daily., Disp: 90 tablet, Rfl: 1 hydrocortisone (Cortef) 10 MG tablet, , Disp: , Rfl: hydrocortisone 2.5 % cream, Apply topically., Disp: , Rfl: ketoconazole (NIZOral) 2 % shampoo, , Disp: , Rfl: levothyroxine (Synthroid, Levoxyl) 75 MCG tablet, , Disp: , Rfl: Multiple Vitamins-Iron (MULTI-VITAMIN/IRON PO), Take by mouth., Disp: , Rfl: oxybutynin XL (Ditropan-XL) 10 MG 24 hr tablet, , Disp: , Rfl: sodium chloride 0.9 % irrigation solution, Irrigate as directed each nostril with 60cc of solution twice daily. Dispense one liter bottles, Disp: , Rfl: sulfaSALAzine 500 MG EC tablet, Take 1,000 mg by mouth 2 times daily., Disp: , Rfl: Trulicity 0.75 MG/0.5ML solution pen-injector, Inject 0.75 mg under the skin 1 (one) time per week., Disp: , Rfl: atorvastatin (Lipitor) 10 MG tablet, Take 1 tablet (10 mg) by mouth Nightly for 360 doses., Disp: 90 tablet, Rfl: 1 carvedilol (Coreg) 25 MG tablet, Take 1 tablet (25 mg) by mouth 2 times daily (with meals)., Disp: 180 tablet, Rfl: 1 cloNIDine (Catapres) 0.3 MG tablet, One q AM , one q afternoon, then 2 q PM, Disp: 360 tablet, Rfl: 1 ferrous sulfate 325 (65 Fe) MG EC tablet, Take 325 mg by mouth 3 times daily (with meals). Do not crush, chew, or split., Disp: , Rfl: Glucose Blood (Blood Glucose Test) strip, 100 strips by Other route., Disp: , Rfl: hydrALAZINE (Apresoline) 100 MG tablet, Take 1 tablet (100 mg) by mouth 3 times daily., Disp: 270 tablet, Rfl: 1 hydroCHLOROthiazide (HYDRODiuril) 25 MG tablet, Take 1 tablet (25 mg) by mouth daily., Disp: 30 tablet, Rfl: 5 Lancets (OneTouch Delica Plus [id number]) [facility] [place]p: , Rfl: lisinopril 40 MG tablet, Take 1 tablet (40 mg) by mo (more content not included)... Normal [facility] Oncology Visit Reporton Oncology Visit Report [facility] [address] [place] [address] OFFICE VISIT Date of Service: 01/09/25 1337 MR#: [id number] Acct: [id number] Name: MYRANDA OLEA Derrick Rep #: [id number] : 1960 From: James Chinchilla MD Age/Sex: 64/M Location: [facility] [place] Status: Signed HPI Subjective Date of Service 01/09/25 Chief Complaint F/u for CT results. History of Present Illness 64 y.o.man was found to have mild anemia and referred for further evaluation. He had colonoscopy last year, found to have diverticulosis and polyps. Had blood work, stool occult blood done was negative. Was found to have high Erythropoietin level. Had CT to R/O malignancy and comes for follow up. [facility] Medical History Mixed hyperlipidemia Secondary adrenal insufficiency Uncontrolled hypertension Acute sinusitis, unspecified Diabetes Secondary hypothyroidism Pancreatic calcification Wears glasses Diabetes Thyroid disease Rheumatoid arthritis Bladder disease Anemia Excessive bleeding Back pain Non-smoker CPAP (continuous positive airway pressure) dependence Leg cramps Hypertension History of colon polyps Chronic pancreatitis Lactose intolerance DJD (degenerative joint disease), lumbar Eosinophilic esophagitis Hypertriglyceridemia Bilateral cataracts Seasonal allergies Anemia Segmental and somatic dysfunction of lumbar region Segmental and somatic dysfunction of thoracic region Segmental and somatic dysfunction of cervical region Acute cholecystitis Obesity Hypertension Rheumatoid arthritis Surgical History History of pituitary surgery History of esophagogastroduodenosco py (EGD) ( 05/29/18) S/P colonoscopy ( 05/29/18) History of esophagogastroduodenosco py (EGD) Hx of tonsillectomy Hx of colonoscopy Hx of cholecystectomy S/P cholecystectomy Family History Mother Cancer Hypertension Father Diabetes Prostate cancer Heart disease stent placed High cholesterol Hypertension Social History household members: spouse current occupational status: employed current occupation: [employer] Smoking Status: Never smoker alcohol intake: never substance use type: does not use Intake Vital Signs 12/13/24 09:12 12/20/24 14:37 01/09/25 13:38 01/09/25 13:42 Height 5 ft 6.5 in 5 ft 6 in 5 ft 6 in 5 ft 6 in Weight: 109.543 kg BMI 38.9 BP 185/94 H Blood Pressure Location Lt brachial Position Sitting Respiration 18 Pulse 64 Pulse Source Monitor Temp 98.4 F Temperature Source Temporal Artery Pulse Oximetry (%) 97 Oxygen Delivery Method room air Intake Is patient in pain?: No Allergies diltiazem (From [facility]) Allergy (Unknown, Verified 01/09/25 13:41) PT UNSURE OF REACTION Milk Containing Products (Dairy) Adverse Reaction (Unknown, Verified 01/09/25 13:41) unknown Medications ???Medication ???Instructions ???Recorded ???Confirmed ???Type carvedilol 25 mg tablet 25 mg PO BID 12/22/15 01/09/25 His tory finasteride 5 mg tablet 5 mg PO DAILY 12/22/15 01/09/25 Hi story hydralazine 100 mg tablet 100 mg PO TID 12/22/15 01/09/25 Hi story lisinopril 40 mg tablet 40 mg PO DAILY 12/22/15 01/09/25 H istory multivitamin 1 tab PO DAILY 08/19/17 01/09/25 H istory hydrocortisone 2.5 % topical cream 1 applic topical BID PRN Skin 01/09/25 History Cleansing ketoconazole 2 % shampoo 1 applic topical QODAY 05/25/21 History oxybutynin chloride 10 mg 10 mg PO DAILY 05/25/21 01/09/25 H istory tablet,extended release 24 hr cholecalciferol (vitamin D3) 25 25 mcg PO DAILY 12/10/22 01/09/25 History mcg (1,000 unit) capsule sulfasalazine 500 mg 1,000 mg PO BID 12/15/23 01/09/25 History tablet,delayed release levothyroxine 75 mcg tablet 75 mcg PO DAILY 06/14/24 01/09/25 History levothyroxine 75 mcg tablet 150 mcg PO CLEARY 06/14/24 01/09/25 Hi story (Euthyrox) blood sugar diagnostic (OneTouch #100 ea 07/26/24 01/09/25 Rx Verio test strips) blood-glucose meter (OneTouch #1 ea 07/26/24 01/09/25 Rx Verio Reflect Meter) lancets 33 gauge (OneTouch Delica #100 ea 10/15/24 01/09/25 Rx Plus Lancet) acetaminophen 650 mg 650 mg PO Q8H 11/20/24 01/09/25 Hi story tablet,extended release atorvastatin 20 mg tablet 10 mg PO QPM 12/05/24 01/09/25 His tory clonidine HCl 0.3 mg tablet 0.3 mg PO BID 12/05/24 01/09/25 Hi story clonidine HCl 0.3 mg tablet 0.6 mg PO QHS 12/05/24 01/09/25 Hi story hydrocortisone 10 mg tablet 10 mg PO BID 12/05/24 01/09/25 His tory Trulicity 1.5 mg/0.5 mL 1.5 mg (0.5 m (more content not included)... Normal [facility] Celiac AB,Comprehensiveon ANTIGLIADIN IGA 5 units Normal 0-19 [facility] Comment on above: Result Comment: Nega tive 0 - 19 Weak Positive 20 - 30 Moderate to Strong Positive >30 Performed By: #### L 400.0001, L500.4050, L101.9900, L3100.1850, L100.9950, L504.2610, L503.0106, L503.6550, L3100.1350, L501.6710, L100.0100, L503.6030 #### [facility] [address] [place], [address] ANTIGLIADIN IGG 2 units Normal 0-19 [facility] Comment on above: Result Comment: Nega tive 0 - 19 Weak Positive 20 - 30 Moderate to Strong Positive >30 Performed By: #### L 400.0001, L500.4050, L101.9900, L3100.1850, L100.9950, L504.2610, L503.0106, L503.6550, L3100.1350, L501.6710, L100.0100, L503.6030 #### [facility] [address] [place], [place], [id number] ENDOMYSIAL IGA Negative Normal Negative [facility] Comment on above: Performed By: #### L 400.0001, L500.4050, L101.9900, L3100.1850, L100.9950, L504.2610, L503.0106, L503.6550, L3100.1350, L501.6710, L100.0100, L503.6030 #### [facility] [address] [place], [place], [id number] IMMUNOGLOB A QN 178 mg/dL Normal 61-437 [facility] Comment on above: Performed By: #### L 400.0001, L500.4050, L101.9900, L3100.1850, L100.9950, L504.2610, L503.0106, L503.6550, L3100.1350, L501.6710, L100.0100, L503.6030 #### [facility] [address] [facility] [place], [place], [id number] tTG IGA <2 Normal 0-3 [facility] Comment on above: Result Comment: Nega tive 0 - 3 Weak Positive 4 - 10 Positive >10 Tissue Transglutaminase (tTG) has been identified as the endomysial antigen. Studies have demonstr- ated that endomysial IgA antibodies have over 99% specificity for gluten sensitive enteropathy. Performed By: #### L 400.0001, L500.4050, L101.9900, L3100.1850, L100.9950, L504.2610, L503.0106, L503.6550, L3100.1350, L501.6710, L100.0100, L503.6030 #### [facility] [address] [place], [place], [id number] tTG IGG 7 U/mL Abnormal 0-5 [facility] Comment on above: Result Comment: Nega tive 0 - 5 Weak Positive 6 - 9 Positive >9 Performed By: #### L 400.0001, L500.4050, L101.9900, L3100.1850, L100.9950, L504.2610, L503.0106, L503.6550, L3100.1350, L501.6710, L100.0100, L503.6030 #### [facility] [address] [place], [address] Erythropoietinon 01-08-2025 ERYTHROPOIETIN 19.8 mIU/mL High 2.6-18.5 [facility] Comment on above: Result Comment: [employer] DxI 800 Immunoassay System Values obtained with different assay methods or kits cannot be used interchangeably. Results cannot be interpreted as absolute evidence of the presence or absence of malignant disease. Performed at: [address] [id number] Yoghurt Maker: Axel Cronin PhD, Phone: [phone] Performed By: #### L 400.0001, L500.4050, L101.9900, L3100.1850, L100.9950, L504.2610, L503.0106, L503.6550, L3100.1350, L501.6710, L100.0100, L503.6030 #### [facility] [address] [facility] [place], [address] Absolute lymphocyte countOrd ered By: James Chinchilla on 01-04-2025 Lymphocytes Auto (Unsp spec) [#/Vol] 1.63 10*3/uL 0.83-4.51 [facility] Absolute neutrophil countOrd ered By: James Chinchilla on 01-04-2025 Neutrophils (Bld) [#/Vol] 3.7 10*3/uL 2.0-7.7 [facility] Anion gap in Serum or Plasma Ordered By: James Karoline on 01-04-2025 Anion gap [Moles/Vol] 12 mmol/L 5-15 [facility] Automated lymphocyte count a s percentage of total leukocytesOrdered By: [facility] on 01-04-2025 Lymphocytes/100 WBC Auto (Unsp spec) 26.6 % 19- [facility] BUN/creatinine ratioOrdered By: [facility] on 01-04-2025 Urea nitrogen/Creatinine [Mass ratio] 15.4 mg/mg 10-20 [facility] Basophil percentageOrdered B y: James [facility] on 01-04-2025 Basophils/100 WBC (Bld) 1.8 % High 0-1 [facility] Bilirubin, totalOrdered By: [facility] on 01-04-2025 Bilirubin [Mass/Vol] 0.83 mg/dL 0.00-1.30 [facility] CBC W/Diff, Automatedon Absolute Lymph 1.63 X10 3/uL Normal 0.83-4.51 [facility] Comment on above: Performed By: #### L 400.0001, L500.4050, L101.9900, L3100.1850, L100.9950, L504.2610, L503.0106, L503.6550, L3100.1350, L501.6710, L100.0100, L503.6030 #### [facility] [address] [place], [place], [id number] Absolute Neut 3.7 X10 3/uL Normal 2.0-7.7 [facility] Comment on above: Performed By: #### L 400.0001, L500.4050, L101.9900, L3100.1850, L100.9950, L504.2610, L503.0106, L503.6550, L3100.1350, L501.6710, L100.0100, L503.6030 #### [facility] [address] [place], [place], [id number] (624) Basophils/100 WBC (Bld) 1.8 % High 0-1 [facility] Comment on above: Performed By: #### L 400.0001, L500.4050, L101.9900, L3100.1850, L100.9950, L504.2610, L503.0106, L503.6550, L3100.1350, L501.6710, L100.0100, L503.6030 #### [facility] [address] [place], [place], [id number] (319) Eosinophils/100 WBC (Bld) 2.8 % Normal 0-5 [facility] Comment on above: Performed By: #### L 400.0001, L500.4050, L101.9900, L3100.1850, L100.9950, L504.2610, L503.0106, L503.6550, L3100.1350, L501.6710, L100.0100, L503.6030 #### [facility] [address] [place], [address] Erythrocyte distribution width (RBC) [Ratio] 14.2 % Normal 11.6-14.6 [facility] Comment on above: Performed By: #### L 400.0001, L500.4050, L101.9900, L3100.1850, L100.9950, L504.2610, L503.0106, L503.6550, L3100.1350, L501.6710, L100.0100, L503.6030 #### [facility] [address] [place], [address] Hematocrit (Bld) [Volume fraction] 38.0 % Low 40-54 [facility] Comment on above: Performed By: #### L 400.0001, L500.4050, L101.9900, L3100.1850, L100.9950, L504.2610, L503.0106, L503.6550, L3100.1350, L501.6710, L100.0100, L503.6030 #### [facility] [address] [place], [address] (613) Hemoglobin (Bld) [Mass/Vol] 12.2 g/dL Low 13.0-16.5 [facility] Comment on above: Performed By: #### L 400.0001, L500.4050, L101.9900, L3100.1850, L100.9950, L504.2610, L503.0106, L503.6550, L3100.1350, L501.6710, L100.0100, L503.6030 #### [facility] [address] [place], [address] (493) IG% 0.700 Normal 0.0-0.9 [facility] Comment on above: Result Comment: IG% - Immature Granulocytes (promyelocytes, myelocytes and metamyelocytes) > 1% indicates that a LEFT SHIFT is Present. Performed By: #### L 400.0001, L500.4050, L101.9900, L3100.1850, L100.9950, L504.2610, L503.0106, L503.6550, L3100.1350, L501.6710, L100.0100, L503.6030 #### [facility] [address] [place], [address] (511) Lymphocytes/100 WBC (Bld) 26.6 % Normal 19-41 [facility] Comment on above: Performed By: #### L 400.0001, L500.4050, L101.9900, L3100.1850, L100.9950, L504.2610, L503.0106, L503.6550, L3100.1350, L501.6710, L100.0100, L503.6030 #### [facility] [address] [place], [address] (979) MCH (RBC) [Entitic mass] 29.1 pg Normal 27.0-32.0 [facility] Comment on above: Performed By: #### L 400.0001, L500.4050, L101.9900, L3100.1850, L100.9950, L504.2610, L503.0106, L503.6550, L3100.1350, L501.6710, L100.0100, L503.6030 #### [facility] [address] [place], [address] MCHC (RBC) [Mass/Vol] 32.1 g/dL Normal 32-36 [facility] Comment on above: Performed By: #### L 400.0001, L500.4050, L101.9900, L3100.1850, L100.9950, L504.2610, L503.0106, L503.6550, L3100.1350, L501.6710, L100.0100, L503.6030 #### [facility] [address], [address] MCV (RBC) [Entitic vol] 90.7 fL Normal 80-94 [facility] Comment on above: Performed By: #### L 400.0001, L500.4050, L101.9900, L3100.1850, L100.9950, L504.2610, L503.0106, L503.6550, L3100.1350, L501.6710, L100.0100, L503.6030 #### [facility] [address] [place], [address] Monocytes/100 WBC (Bld) 8.5 % Normal 0-10 [facility] Comment on above: Performed By: #### L 400.0001, L500.4050, L101.9900, L3100.1850, L100.9950, L504.2610, L503.0106, L503.6550, L3100.1350, L501.6710, L100.0100, L503.6030 #### [facility] [address] [place], [address] Neutrophils/100 WBC (Bld) 59.6 % Normal 47-70 [facility] Comment on above: Performed By: #### L 400.0001, L500.4050, L101.9900, L3100.1850, L100.9950, L504.2610, L503.0106, L503.6550, L3100.1350, L501.6710, L100.0100, L503.6030 #### [facility] [address] [place], [address] Nucleated RBC (Bld) [#/Vol] 0 10*3/uL Normal 0-5 [facility] Comment on above: Performed By: #### L 400.0001, L500.4050, L101.9900, L3100.1850, L100.9950, L504.2610, L503.0106, L503.6550, L3100.1350, L501.6710, L100.0100, L503.6030 #### [facility] [address] [place], [address] Platelet mean volume (Bld) [Entitic vol] 9.9 fL Normal 6.2-12.0 [facility] Comment on above: Performed By: #### L 400.0001, L500.4050, L101.9900, L3100.1850, L100.9950, L504.2610, L503.0106, L503.6550, L3100.1350, L501.6710, L100.0100, L503.6030 #### [facility] [address] [place], [address] Platelets (Bld) [#/Vol] 267 10*3/uL Normal 150-450 [facility] Comment on above: Performed By: #### L 400.0001, L500.4050, L101.9900, L3100.1850, L100.9950, L504.2610, L503.0106, L503.6550, L3100.1350, L501.6710, L100.0100, L503.6030 #### [facility] [address] [place], [place], [phone] (432) RBC (Bld) [#/Vol] 4.19 10*6/uL Low 4.6-6.2 [facility] Comment on above: Performed By: #### L 400.0001, L500.4050, L101.9900, L3100.1850, L100.9950, L504.2610, L503.0106, L503.6550, L3100.1350, L501.6710, L100.0100, L503.6030 #### [facility] [address] [place], [place], [phone] (672) RDW SD 46.6 fl High 35.1-43.9 [facility] Comment on above: Performed By: #### L 400.0001, L500.4050, L101.9900, L3100.1850, L100.9950, L504.2610, L503.0106, L503.6550, L3100.1350, L501.6710, L100.0100, L503.6030 #### [facility] [address] [place], [place], [id number] (237) WBC (Bld) [#/Vol] 6.1 10*3/uL Normal 4.4-11.0 [facility] Comment on above: Performed By: #### L 400.0001, L500.4050, L101.9900, L3100.1850, L100.9950, L504.2610, L503.0106, L503.6550, L3100.1350, L501.6710, L100.0100, L503.6030 #### [facility] [address] [place], [address] CRPon 01-04-2025 C-REACTIVE PROT < 3.00 Normal 0.0-3.0 [facility] Comment on above: Performed By: #### L 400.0001, L500.4050, L101.9900, L3100.1850, L100.9950, L504.2610, L503.0106, L503.6550, L3100.1350, L501.6710, L100.0100, L503.6030 #### [facility] [address] [facility] [place], [place], [id number] CT Chest, Abd, Pel w/Contras ton 01-04-2025 CT Chest, Abd, Pel w/Contrast [facility] [address] [place], [place] [address] CT Chest, Abd, Pel w/Contrast MR#: [id number] Acct: [id number] Name: MYRANDA OLEA Rep #: [id number] : 1960 M 64 From: Sofai Lunsford nd, MD PCP: Dr. William Amado, DO Status: REG CLI Study: CT Chest, Abd, Pel w/Contrast Date of Exam: Exam# [id number] Ordering Dr: James Chinchilla MD PROCEDURE: CT CHEST, ABD, PEL W/CONTRAST 01/04/2025 REASON FOR EXAM: HIGH SERUM ERYTHROPOIETIN-IV ONLY TECHNIQUE: Chest, abdomen and pelvis CT with intravenous contrast. Coronal and Sagittal reconstruction series were provided. One or more dose reduction techniques were used (e.g., Automated exposure control, adjustment of the mA and/or kV according to patient size, use of iterative reconstruction technique. PATIENT PREPARATION: Per protocol ORAL CONTRAST TYPE: None. CONTRAST: Isovue 370 VOLUME: 100mL RADIATION DOSE SUMMARY: CTDlvol: 75 mGy DLP: 2500 mGycm COMPARISON: CT abdomen pelvis 05/23/2018. FINDINGS: CT CHEST: Hardware: None. Lymph nodes: No axillary, mediastinal or hilar lymphadenopathy. Heart and Vasculature: The heart is normal in size without pericardial effusion. Mild coronary artery and thoracic aortic calcifications. The great vessels are normal in caliber. Lungs and Airways: The central airways are patent. Low lung volumes. Visualization is slightly limited by expiratory phase imaging. Trace right pleural effusion with adjacent linear atelectasis/scarring. No pneumothorax. Bones: Cervical and thoracic spondylosis with multilevel anterior bridging vertebral body osteophytes, compatible with DISH. CT ABDOMEN/PELVIS: Liver: Normal in size with scattered hypodensities, likely cysts. The major portal veins are patent. No biliary ductal dilation. Gallbladder: Prior cholecystectomy. Spleen: Normal size. Pancreas: Unremarkable pancreas. Adrenals: No adrenal mass. Kidneys: Small bilateral renal cysts and additional hypodensities. Bilateral lower pole renal calculi. No hydronephrosis. Bladder: Moderately distended and unremarkable. Reproductive Organs: Mildly enlarged prostate which indents the bladder base. Bowel: The bowel loops are nondilated. No ascites or pneumoperitoneum. Normal appendix. Lymph nodes: No suspicious lymphadenopathy. Vasculature: The aortoiliac vessels are normal in caliber with mild mixed atherosclerotic plaque. Bones/soft tissues: Thoracolumbar spondylosis and severe degenerative disc disease, greatest in the lumbar spine. Small fat containing inguinal hernias. CT/CT Chest, Abd, Pel w/Contrast IMPRESSION: CT chest: 1. Trace right pleural effusion and adjacent atelectasis. 2. Mild coronary artery calcifications. CT abdomen/pelvis: Tiny nonobstructing renal calculi. Reading Location: [facility] CC: Dr. Wliliam Amado DO; Dr. James Chinchilla MD [employer] Building: Signed Normal [facility] Carbon dioxide, total [Moles /volume] in Central venous bloodOrdered By: James Chinchilla on 01-04-2025 CO2 [Moles/Vol] 26.1 mmol/L 21.0-32.0 [facility] Chloride assayOrdered By: Shonna Chinchilla on 01-04-2025 Chloride [Moles/Vol] 103 mmol/L 98-108 [facility] Comprehensive Metabolic Prof ilon 01-04-2025 Albumin [Mass/Vol] 4.8 g/dL Normal 3.4-4.8 [facility] Comment on above: Performed By: #### L 400.0001, L500.4050, L101.9900, L3100.1850, L100.9950, L504.2610, L503.0106, L503.6550, L3100.1350, L501.6710, L100.0100, L503.6030 #### [facility] [address] [place], [address] (726) Albumin/Globulin [Mass ratio] 1.8 {ratio} Normal 0.9-2.4 [facility] Comment on above: Performed By: #### L 400.0001, L500.4050, L101.9900, L3100.1850, L100.9950, L504.2610, L503.0106, L503.6550, L3100.1350, L501.6710, L100.0100, L503.6030 #### [facility] [address] [place], [address] (748) ALK PHOS 69 U/L Normal 40-129 [facility] Comment on above: Performed By: #### L 400.0001, L500.4050, L101.9900, L3100.1850, L100.9950, L504.2610, L503.0106, L503.6550, L3100.1350, L501.6710, L100.0100, L503.6030 #### [facility] [address] [facility] [place], [place], [id number] (481) ALT [Catalytic activity/Vol] 44 U/L Normal <=46 [facility] Comment on above: Performed By: #### L 400.0001, L500.4050, L101.9900, L3100.1850, L100.9950, L504.2610, L503.0106, L503.6550, L3100.1350, L501.6710, L100.0100, L503.6030 #### [facility] [address] [place], [address] (112) AST [Catalytic activity/Vol] 36 U/L Normal <=37 [facility] Comment on above: Performed By: #### L 400.0001, L500.4050, L101.9900, L3100.1850, L100.9950, L504.2610, L503.0106, L503.6550, L3100.1350, L501.6710, L100.0100, L503.6030 #### [facility] [address] [place], [address] (497) Bilirubin [Mass/Vol] 0.83 mg/dL Normal 0.00-1.30 [facility] Comment on above: Performed By: #### L 400.0001, L500.4050, L101.9900, L3100.1850, L100.9950, L504.2610, L503.0106, L503.6550, L3100.1350, L501.6710, L100.0100, L503.6030 #### [facility] [address] [place], [address] BUN/CRE 15.4 RATIO Normal 10-20 [facility] Comment on above: Performed By: #### L 400.0001, L500.4050, L101.9900, L3100.1850, L100.9950, L504.2610, L503.0106, L503.6550, L3100.1350, L501.6710, L100.0100, L503.6030 #### [facility] [address] [place], [place], [id number] Calcium [Mass/Vol] 9.3 mg/dL Normal 7.6-11.0 [facility] Comment on above: Performed By: #### L 400.0001, L500.4050, L101.9900, L3100.1850, L100.9950, L504.2610, L503.0106, L503.6550, L3100.1350, L501.6710, L100.0100, L503.6030 #### [facility] [address] [place], [address] Chloride [Moles/Vol] 103 mmol/L Normal 98-108 [facility] Comment on above: Performed By: #### L 400.0001, L500.4050, L101.9900, L3100.1850, L100.9950, L504.2610, L503.0106, L503.6550, L3100.1350, L501.6710, L100.0100, L503.6030 #### [facility] [address] [place], [place], [id number] (204) CO2 [Moles/Vol] 26.1 mmol/L Normal 21.0-32.0 [facility] Comment on above: Performed By: #### L 400.0001, L500.4050, L101.9900, L3100.1850, L100.9950, L504.2610, L503.0106, L503.6550, L3100.1350, L501.6710, L100.0100, L503.6030 #### [facility] [address] [place], [place], [id number] Creatinine [Mass/Vol] 1.11 mg/dL Normal 0.70-1.20 [facility] Comment on above: Performed By: #### L 400.0001, L500.4050, L101.9900, L3100.1850, L100.9950, L504.2610, L503.0106, L503.6550, L3100.1350, L501.6710, L100.0100, L503.6030 #### [facility] [address] [place], [place], [id number] GAP 12 Normal 5-15 [facility] Comment on above: Performed By: #### L 400.0001, L500.4050, L101.9900, L3100.1850, L100.9950, L504.2610, L503.0106, L503.6550, L3100.1350, L501.6710, L100.0100, L503.6030 #### [facility] [address] [place], [address] GFR/1.73 sq M.predicted among non-blacks MDRD (S/P/Bld) [Vol rate/Area] 74 mL/min/{1.73_m2} Normal >60 [facility] Comment on above: Result Comment: mL/m in/1.73m2 CKD-EPI Creatinine Equation (2020) Performed By: #### L 400.0001, L500.4050, L101.9900, L3100.1850, L100.9950, L504.2610, L503.0106, L503.6550, L3100.1350, L501.6710, L100.0100, L503.6030 #### [facility] [address] [place], [address] Globulin (S) [Mass/Vol] 2.7 g/dL Normal 2.2-4.2 [facility] Comment on above: Performed By: #### L 400.0001, L500.4050, L101.9900, L3100.1850, L100.9950, L504.2610, L503.0106, L503.6550, L3100.1350, L501.6710, L100.0100, L503.6030 #### [facility] [address] [place], [address] Glucose [Mass/Vol] 110 mg/dL High 70-99 [facility] Comment on above: Performed By: #### L 400.0001, L500.4050, L101.9900, L3100.1850, L100.9950, L504.2610, L503.0106, L503.6550, L3100.1350, L501.6710, L100.0100, L503.6030 #### [facility] [address] [place], [address] Potassium [Moles/Vol] 3.8 mmol/L Normal 3.3-5.1 [facility] Comment on above: Performed By: #### L 400.0001, L500.4050, L101.9900, L3100.1850, L100.9950, L504.2610, L503.0106, L503.6550, L3100.1350, L501.6710, L100.0100, L503.6030 #### [facility] [address] [place], [place], [id number] ([phone]) Sodium [Moles/Vol] 141 mmol/L Normal 133-145 [facility] Comment on above: Performed By: #### L 400.0001, L500.4050, L101.9900, L3100.1850, L100.9950, L504.2610, L503.0106, L503.6550, L3100.1350, L501.6710, L100.0100, L503.6030 #### [facility] [address] [place], [place], [id number] T PROT 7.6 g/dL Normal 5.9-8.4 [facility] Comment on above: Performed By: #### L 400.0001, L500.4050, L101.9900, L3100.1850, L100.9950, L504.2610, L503.0106, L503.6550, L3100.1350, L501.6710, L100.0100, L503.6030 #### [facility] [address] [place], [place], [id number] Urea nitrogen [Mass/Vol] 17 mg/dL Normal 4-19 [facility] Comment on above: Performed By: #### L 400.0001, L500.4050, L101.9900, L3100.1850, L100.9950, L504.2610, L503.0106, L503.6550, L3100.1350, L501.6710, L100.0100, L503.6030 #### [facility] [address] [place], [address] Eosinophil percentageOrdered By: James Chinchilla on 01-04-2025 Eosinophils/100 WBC (Bld) 2.8 % 0-5 [facility] Erythrocyte Sed Rateon 01-04 SED RATE 3 mm/hr Normal 0-20 [facility] Comment on above: Performed By: #### L 400.0001, L500.4050, L101.9900, L3100.1850, L100.9950, L504.2610, L503.0106, L503.6550, L3100.1350, L501.6710, L100.0100, L503.6030 #### [facility] [address] [place], [address] Erythrocyte distribution wid th ratioOrdered By: James Chinchilla on 01-04-2025 Erythrocyte distribution width (RBC) [Ratio] 14.2 % 11.6-14.6 [facility] Erythrocyte distribution wid th standard deviationOrdered By: James Chinchilla on 01-04-2025 Erythrocyte distribution width (RBC) [Ratio] 46.6 fl High 35.1-43.9 [facility] Erythrocyte sedimentation ra teOrdered By: James Chinchilla on 01-04-2025 ESR (Bld) [Velocity] 3 mm/h 0-20 [facility] Ferritinon 01-04-2025 Ferritin [Mass/Vol] 123 ng/mL Normal 37-417 [facility] Comment on above: Performed By: #### L 400.0001, L500.4050, L101.9900, L3100.1850, L100.9950, L504.2610, L503.0106, L503.6550, L3100.1350, L501.6710, L100.0100, L503.6030 #### [facility] [address] [place], [address] Glomerular filtration rate ( GFR) estimation/1.73 sq m using serum, plasma, or whole bOrdered By: James Chinchilla on 01-04-2025 GFR/1.73 sq M.predicted among non-blacks MDRD (S/P/Bld) [Vol rate/Area] 74 mL/min/{1.73_m2} >60 [facility] Comment on above: mL/min/1.73m2 CKD-EP I Creatinine Equation (2020) Hematocrit Auto (Bld) [Volum e fraction]Ordered By: James Chinchilla on 01-04-2025 Hematocrit (Bld) [Volume fraction] 38.0 % Low 40-54 [facility] Hemoglobin measurementOrdere d By: James Chinchilla on 01-04-2025 Hemoglobin (Bld) [Mass/Vol] 12.2 g/dL Low 13.0-16.5 [facility] Immature granulocytes/100 WB C Auto (Bld)Ordered By: James Chinchilla on 01-04-2025 Immature granulocytes/100 WBC (Bld) 0.700 % 0.0-0.9 [facility] Comment on above: IG% - Immature Granu locytes (promyelocytes, myelocytes and metamyelocytes) > 1% indicates that a LEFT SHIFT is Present. Iron measurement (mass/mass) Ordered By: James Chinchilla on 01-04-2025 Iron (Unsp spec) [Mass/Mass] 62 ug/dL Low 65-175 [facility] Iron+Iron Binding Capacityon 01-04-2025 Iron [Mass/Vol] 62 ug/dL Low 65-175 [facility] Comment on above: Performed By: #### L 400.0001, L500.4050, L101.9900, L3100.1850, L100.9950, L504.2610, L503.0106, L503.6550, L3100.1350, L501.6710, L100.0100, L503.6030 #### [facility] [address] [place], [address] UIBC 227 ug/dL Low 228-428 [facility] Comment on above: Performed By: #### L 400.0001, L500.4050, L101.9900, L3100.1850, L100.9950, L504.2610, L503.0106, L503.6550, L3100.1350, L501.6710, L100.0100, L503.6030 #### [facility] [address] [place], [address] LDHon 01-04-2025 LDH 231 U/L Normal 87-241 [facility] Comment on above: Order Comment: 1 Performed By: #### L 400.0001, L500.4050, L101.9900, L3100.1850, L100.9950, L504.2610, L503.0106, L503.6550, L3100.1350, L501.6710, L100.0100, L503.6030 #### [facility] [address] [place], [address] Laboratory - Chemistry and C hemistry - challengeOrdered By: James Chinchilla on 01-04-2025 AST [Catalytic activity/Vol] 36 U/L <38 [facility] Lactate dehydrogenase (LDH) measurementOrdered By: James Chinchilla on 01-04-2025 LDH [Catalytic activity/Vol] 231 U/L 87-241 [facility] MCV (mean corpuscular volume ) determinationOrdered By: James Chinchilla on 01-04-2025 MCV (RBC) [Entitic vol] 90.7 fL 80-94 [facility] Magnesiumon 01-04-2025 Magnesium [Mass/Vol] 2.5 mg/dL High 1.5-2.2 [facility] Comment on above: Performed By: #### L 400.0001, L500.4050, L101.9900, L3100.1850, L100.9950, L504.2610, L503.0106, L503.6550, L3100.1350, L501.6710, L100.0100, L503.6030 #### [facility] [address] [place], [place], [id number] Magnesium measurement (mass/ volume)Ordered By: James Chinchilla on 01-04-2025 Magnesium (Unsp spec) [Mass/Vol] 2.5 mg/dL High 1.5-2.2 [facility] Mean corpuscular hemoglobin (MCH) determinationOrdered By: James Chinchilla on 01-04-2025 MCH (RBC) [Entitic mass] 29.1 pg 27.0-32.0 [facility] Mean corpuscular hemoglobin concentration (MCHC) determinationOrdered By: James Chinchilla on 01-04-2025 MCHC (RBC) [Mass/Vol] 32.1 g/dL 32-36 [facility] Mean platelet volume determi nationOrdered By: James Chinchilla on 01-04-2025 Platelet mean volume (Bld) [Entitic vol] 9.9 fL 6.2-12.0 [facility] Monocyte percentageOrdered B y: James Chinchilla on 01-04-2025 Monocytes/100 WBC (Bld) 8.5 % 0-10 [facility] Neutrophil percentageOrdered By: James Chinchilla on 01-04-2025 Neutrophils/100 WBC (Bld) 59.6 % 47-70 [facility] No Panel InformationOrdered By: James Chinchilla on 01-04-2025 Tissue Transglutaminase IgG Ab 7 U/mL High 0-5 [facility] Comment on above: Negative 0 - 5 Weak Positive 6 - 9 Positive >9 Unsaturated Iron Binding Capacity 227 ug/dL Low 228-428 [facility] Nucleated red blood cell per centageOrdered By: James Chinchilla on 01-04-2025 Nucleated RBC/100 WBC (Bld) [Ratio] 0 % 0-5 [facility] Phosphoruson 01-04-2025 Phosphate [Mass/Vol] 3.3 mg/dL Normal 2.7-4.5 [facility] Comment on above: Performed By: #### L 400.0001, L500.4050, L101.9900, L3100.1850, L100.9950, L504.2610, L503.0106, L503.6550, L3100.1350, L501.6710, L100.0100, L503.6030 #### [facility] [address] [place], [address] Platelet countOrdered By: Shonna Chinchilla on 01-04-2025 Platelets (Bld) [#/Vol] 267 10*3/uL 150-450 [facility] Potassium measurement (mass/ volume)Ordered By: James Chinchilla on 01-04-2025 Potassium (Unsp spec) [Mass/Vol] 3.8 mmol/L 3.3-5.1 [facility] RBC Auto (Bld) [#/Vol]Ordere d By: James Chinchilla on 01-04-2025 RBC (Bld) [#/Vol] 4.19 10*6/uL Low 4.6-6.2 [facility] Retic Panelon 01-04-2025 IM RET FRACTION 14.30 Normal 3.00-15.90 [facility] Comment on above: Performed By: #### L 400.0001, L500.4050, L101.9900, L3100.1850, L100.9950, L504.2610, L503.0106, L503.6550, L3100.1350, L501.6710, L100.0100, L503.6030 #### [facility] [address] [place], [place], [id number] RET-HE 31.7 pg Normal 30-35 [facility] Comment on above: Performed By: #### L 400.0001, L500.4050, L101.9900, L3100.1850, L100.9950, L504.2610, L503.0106, L503.6550, L3100.1350, L501.6710, L100.0100, L503.6030 #### [facility] [address] [place], [address] Retic Count 2.12 High 0.5-1.5 [facility] Comment on above: Performed By: #### L 400.0001, L500.4050, L101.9900, L3100.1850, L100.9950, L504.2610, L503.0106, L503.6550, L3100.1350, L501.6710, L100.0100, L503.6030 #### [facility] [address] [place], [address] Reticulocyte hemoglobin equi valent (RET-He) measurementOrdered By: James Chinchilla on 01-04-2025 Hemoglobin (Reticulocytes) [Entitic mass] 31.7 pg 30-35 [facility] Reticulocytes Auto (Bld) [#/ Vol]Ordered By: James Chinchilla on 01-04-2025 Reticulocytes/100 RBC (Bld) 2.12 % High 0.5-1.5 [facility] Serum creatinine measurement (mass/volume)Ordered By: James Chinchilla on 01-04-2025 Creatinine [Mass/Vol] 1.11 mg/dL 0.70-1.20 [facility] Serum globulin measurementOr dered By: James Chinchilla on 01-04-2025 Globulin (S) [Mass/Vol] 2.7 g/dL 2.2-4.2 [facility] Serum glucose measurement (m ass/volume)Ordered By: James Chinchilla on 01-04-2025 Glucose [Mass/Vol] 110 mg/dL High 70-99 [facility] Serum or plasma C reactive p rotein measurement (mass/volume)Ordered By: James Chinchilla on 01-04-2025 CRP [Mass/Vol] mg/L 0.0-3.0 [facility] Serum or plasma alanine mims otransferase (ALT) measurementOrdered By: James Chinchilla on 01-04-2025 ALT [Catalytic activity/Vol] 44 U/L <47 [facility] Serum or plasma albumin brenda urement (mass/volume)Ordered By: James Chinchilla on 01-04-2025 Albumin [Mass/Vol] 4.8 g/dL 3.4-4.8 [facility] Serum or plasma albumin/glob ulin mass ratioOrdered By: James Chinchilla on 01-04-2025 Albumin/Globulin [Mass ratio] 1.8 {ratio} 0.9-2.4 [facility] Serum or plasma alkaline leighann sphatase measurementOrdered By: James Chinchilla on 01-04-2025 ALP [Catalytic activity/Vol] 69 U/L 40-129 [facility] Serum or plasma calcium brenda urement (mass/volume)Ordered By: James Chinchilla on 01-04-2025 Calcium [Mass/Vol] 9.3 mg/dL 7.6-11.0 [facility] Serum or plasma erythropoiet in (EPO) measurement (units/volume)Ordered By: James Chinchilla on 01-04-2025 Erythropoietin (EPO) Qn 19.8 mIU/mL High 2.6-18.5 [facility] Comment on above: Alek beneSol UniC el DxI 800 Immunoassay SystemValues obtained with different assay methods or kits cannotbe used interchangeably. Results cannot be interpreted asabsolute evidence of the presence or absence of malignantdisease.Performed at: [facility] [employer] [id number] Director: Axel Croinn PhD, Phone: [phone] Serum or plasma ferritin ella surement (mass/volume)Ordered By: James Chinchilla on 01-04-2025 Ferritin [Mass/Vol] 123 ng/mL 37-417 [facility] Serum or plasma iron saturat ion measurement (mass fraction)Ordered By: James Chinchilla on 01-04-2025 Iron saturation [Mass fraction] 21.5 % 9-55 [facility] Comment on above: Previous reported re sult: 21.0 %Edited by: EARL on 01/04/25:1700 AMENDED REPORT 01/04/25 1700 IRON SATURATION previously reported as: 21.0 % Serum or plasma urea nitroge n measurement (mass/volume)Ordered By: James Chinchilla on 01-04-2025 Urea nitrogen [Mass/Vol] 17 mg/dL 4-19 [facility] Serum tissue transglutaminas e (tTG) IgA antibody assay (units/volume)Ordered By: James Chinchilla on 01-04-2025 tTG IgA Qn (S) <2 U/mL 0-3 [facility] Comment on above: Negative 0 - 3 Weak Positive 4 - 10 Positive >10 Tissue Transglutaminase (tTG) has been identified as the endomysial antigen. Studies have demonstr- ated that endomysial IgA antibodies have over 99% specificity for gluten sensitive enteropathy. Sodium levelOrdered By: Eze Chinchilla on 01-04-2025 Sodium [Moles/Vol] 141 mmol/L 133-145 [facility] Total proteinOrdered By: Sha Chinchilla on 01-04-2025 Protein [Mass/Vol] 7.6 g/dL 5.9-8.4 [facility] White blood cell (WBC) count Ordered By: James Chinchilla on 01-04-2025 WBC (Bld) [#/Vol] 6.1 10*3/uL 4.4-11.0 [facility] PSA,Total- Diagnosticon 04- PSA, DIAGNOSTIC 4.07 ng/mL High 0.00-4.00 [facility] Comment on above: Result Comment: This test was performed using the [employer] tPSA method. Measured values of a patient??sample can vary depending on the testing procedure used. PSA values determined on patient samples by different testing procedures cannot be used interchangeably. If there is a change in PSA assays while monitoring therapy, sequential testing should be performed to confirm baseline values. Performed By: #### L 501.9940 #### [facility] [address] [place], [address] MR Pituitary and Sella turci ca WO and W contrast Wing 12-24-2024 Radiology Study observation (narrative) [facility] IMPRESSION: Unchanged examination. Postsurgical changes of pituitary adenoma resection without evidence of enlarging lesion. [facility] Transcribe Date/Time: Dec 24 2024 2:19P Dictated by : DANNA JORGE MD This examination was interpreted and the report reviewed and electronically signed by: ADNNA JORGE MD on Dec 24 2024 2:29PM [facility] DIVISION OF RADIOLOGY * * *Final Report* * * DATE OF EXAM: Dec 24 2024 12:47PM [facility] 0314 - MRI PITUITARY WO/W IVCON / PROCEDURE REASON: Other postprocedural endocrine and metabolic complications and disorders * * * * Physician Interpretation * * * * EXAMINATION: MRI PITUITARY WO/W IVCON CLINICAL HISTORY: Incidental asymptomatic pituitary adenoma status post endoscopic endonasal transsphenoidal resection on 02/03/2023. TECHNIQUE: High resolution sagittal and coronal T1, coronal T2, and gadolinium enhanced, fat-suppressed sagittal and coronal T1-weighted images of the pituitary region. Contrast: 5 mL Elucirem IV COMPARISON: Multiple prior MRIs of the pituitary, most recently 12/20/2023 RESULT: Postop Changes: Remote postsurgical changes of endoscopic endonasal resection of pituitary adenoma. Adenohypophysis: Residual pituitary tissue is noted along the floor and dorsal aspect of the sella. Thickening of the pituitary stalk appears grossly unchanged since 12/20/2023. Neurohypophysis: Suspected residual neurohypophysis along the dorsal aspect of the sella in close proximity to the thickened pituitary infundibulum. Suprasellar Region: No evidence of a suprasellar mass. The optic apparatus is normal in appearance. Cavernous Sinuses: The cavernous sinuses are normal in appearance. A normal flow void is noted in the carotid siphons suggesting patency by spin echo criteria. Brain Parenchyma: Scattered T2 hyperintensities in the visualized brain parenchyma, compatible with mild chronic microvascular ischemia. Skull Base: No evidence of a marrow replacement process in the underlying skull base. Mucous retention cyst in the right maxillary sinus. Paranasal sinuses otherwise appear well aerated. DIVISION OF RADIOLOGY Provider, [facility] - 12/24/2024 * * *Final Report* * * DATE OF EXAM: Dec 24 2024 12:47PM [facility] 0314 - MRI PITUITARY WO/W IVCON / PROCEDURE REASON: Other postprocedural endocrine and metabolic complications and disorders * * * * Physician Interpretation * * * * EXAMINATION: MRI PITUITARY WO/W IVCON CLINICAL HISTORY: Incidental asymptomatic pituitary adenoma status post endoscopic endonasal transsphenoidal resection on 02/03/2023. TECHNIQUE: High resolution sagittal and coronal T1, coronal T2, and gadolinium enhanced, fat-suppressed sagittal and coronal T1-weighted images of the pituitary region. Contrast: 5 mL Elucirem IV COMPARISON: Multiple prior MRIs of the pituitary, most recently 12/20/2023 RESULT: Postop Changes: Remote postsurgical changes of endoscopic endonasal resection of pituitary adenoma. Adenohypophysis: Residual pituitary tissue is noted along the floor and dorsal aspect of the sella. Thickening of the pituitary stalk appears grossly unchanged since 12/20/2023. Neurohypophysis: Suspected residual neurohypophysis along the dorsal aspect of the sella in close proximity to the thickened pituitary infundibulum. Suprasellar Region: No evidence of a suprasellar mass. The optic apparatus is normal in appearance. Cavernous Sinuses: The cavernous sinuses are normal in appearance. A normal flow void is noted in the carotid siphons suggesting patency by spin echo criteria. Brain Parenchyma: Scattered T2 hyperintensities in the visualized brain parenchyma, compatible with mild chronic microvascular ischemia. Skull Base: No evidence of a marrow replacement process in the underlying skull base. Mucous retention cyst in the right maxillary sinus. Paranasal sinuses otherwise appear well aerated. IMPRESSION IMPRESSION: Unchanged examination. Postsurgical changes of pituitary adenoma resection without evidence of enlarging lesion. [employer] Building: [facility] Transcribe Date/Time: Dec 24 2024 2:19P Dictated by : DANNA JORGE MD This examination was interpreted and the report reviewed and electronically signed by: DANNA JORGE MD on Dec 24 2024 2:29PM EST [facility] MR Pituitary and Sella turci ca WO and W contrast IVOrdered By: [facility] Provider on 12-24-2024 [facility] MRI PITUITARY WO/W IVCONon 0 12-24-2024 MRI PITUITARY WO/W IVCON * * *Final Report* * * DATE OF EXAM: Dec 24 2024 12:47PM [facility] 0314 - MRI PITUITARY WO/W IVCON / PROCEDURE REASON: Other postprocedural endocrine and metabolic complications and disorders * * * * Physician Interpretation * * * * EXAMINATION: MRI PITUITARY WO/W IVCON CLINICAL HISTORY: Incidental asymptomatic pituitary adenoma status post endoscopic endonasal transsphenoidal resection on 02/03/2023. TECHNIQUE: High resolution sagittal and coronal T1, coronal T2, and gadolinium enhanced, fat-suppressed sagittal and coronal T1-weighted images of the pituitary region. Contrast: 5 mL Elucirem IV COMPARISON: Multiple prior MRIs of the pituitary, most recently 12/20/2023 RESULT: Postop Changes: Remote postsurgical changes of endoscopic endonasal resection of pituitary adenoma. Adenohypophysis: Residual pituitary tissue is noted along the floor and dorsal aspect of the sella. Thickening of the pituitary stalk appears grossly unchanged since 12/20/2023. Neurohypophysis: Suspected residual neurohypophysis along the dorsal aspect of the sella in close proximity to the thickened pituitary infundibulum. Suprasellar Region: No evidence of a suprasellar mass. The optic apparatus is normal in appearance. Cavernous Sinuses: The cavernous sinuses are normal in appearance. A normal flow void is noted in the carotid siphons suggesting patency by spin echo criteria. Brain Parenchyma: Scattered T2 hyperintensities in the visualized brain parenchyma, compatible with mild chronic microvascular ischemia. Skull Base: No evidence of a marrow replacement process in the underlying skull base. Mucous retention cyst in the right maxillary sinus. Paranasal sinuses otherwise appear well aerated. IMPRESSION: Unchanged examination. Postsurgical changes of pituitary adenoma resection without evidence of enlarging lesion. [employer] Building: [facility] Transcribe Date/Time: Dec 24 2024 2:19P Dictated by : DANNA JORGE MD This examination was interpreted and the report reviewed and electronically signed by: DANNA JORGE MD on Dec 24 2024 2:29PM EST [id number] Normal [facility] Chiropractic Reporton 2024 Chiropractic Report [facility] [address] [place] [address] OFFICE VISIT Date of Service: 12/20/24 MR#: [id number] Acct: [id number] Name: MYRANDA OLEA Rep #: [id number] : 1960 Provider: MJ Pemberton Age/Sex: 64/M Location: [facility] Status: Signed Intake Vital Signs 07/26/24 16:07 12/20/24 14:37 Height 5 ft 6.5 in 5 ft 6 in Intake Visit Reasons: Back Pain Chief Complaint: neck and low back pain Is patient in pain?: Yes (low back ) Pain scale (1-10): 8 Allergies diltiazem (From Cardizem) Allergy (Unknown, Verified 12/20/24 17:32) PT UNSURE OF REACTION Milk Containing Products (Dairy) Adverse Reaction (Unknown, Verified 12/20/24 17:32) unknown Medications ???Medication ???Instructions ???Recorded ???Confirmed ???Type carvedilol 25 mg tablet 25 mg PO BID 12/22/15 12/20/24 His tory finasteride 5 mg tablet 5 mg PO DAILY 12/22/15 12/20/24 Hi story hydralazine 100 mg tablet 100 mg PO TID 12/22/15 12/20/24 Hi story lisinopril 40 mg tablet 40 mg PO DAILY 12/22/15 12/20/24 H istory multivitamin 1 tab PO DAILY 08/19/17 12/20/24 H istory hydrocortisone 2.5 % topical cream 1 applic topical BID PRN Skin 12/20/24 History Cleansing ketoconazole 2 % shampoo 1 applic topical QODAY 05/25/21 History oxybutynin chloride 10 mg 10 mg PO DAILY 05/25/21 12/20/24 H istory tablet,extended release 24 hr cholecalciferol (vitamin D3) 25 25 mcg PO DAILY 12/10/22 12/20/24 History mcg (1,000 unit) capsule sulfasalazine 500 mg 1,000 mg PO BID 12/15/23 12/20/24 History tablet,delayed release levothyroxine 75 mcg tablet 75 mcg PO DAILY 06/14/24 12/20/24 History levothyroxine 75 mcg tablet 150 mcg PO CLEARY 06/14/24 12/20/24 Hi story (Euthyrox) blood sugar diagnostic (OneTouch #100 ea 07/26/24 12/20/24 Rx Verio test strips) blood-glucose meter (OneTouch #1 ea 07/26/24 12/20/24 Rx Verio Reflect Meter) lancets 33 gauge (OneTouch Delica #100 ea 10/15/24 12/20/24 Rx Plus Lancet) acetaminophen 650 mg 650 mg PO Q8H 11/20/24 12/20/24 Hi story tablet,extended release atorvastatin 20 mg tablet 10 mg PO QPM 12/05/24 12/20/24 His tory clonidine HCl 0.3 mg tablet 0.3 mg PO BID 12/05/24 12/20/24 Hi story clonidine HCl 0.3 mg tablet 0.6 mg PO QHS 12/05/24 12/20/24 Hi story hydrocortisone 10 mg tablet 10 mg PO BID 12/05/24 12/20/24 His tory Trulicity 1.5 mg/0.5 mL 1.5 mg (0.5 mL) subcut QWEEK #2 mL 12/20/24 12/20/24 Rx subcutaneous pen injector (dulaglutide) ferrous sulfate 325 mg (65 mg 325 mg PO .2XWK 12/20/24 12/20/24 History iron) tablet (Feosol) [facility] Medical History Mixed hyperlipidemia Secondary adrenal insufficiency Uncontrolled hypertension Acute sinusitis, unspecified Diabetes Secondary hypothyroidism Pancreatic calcification Wears glasses Diabetes Thyroid disease Rheumatoid arthritis Bladder disease Anemia Excessive bleeding Back pain Non-smoker CPAP (continuous positive airway pressure) dependence Leg cramps Hypertension History of colon polyps Chronic pancreatitis Lactose intolerance DJD (degenerative joint disease), lumbar Eosinophilic esophagitis Hypertriglyceridemia Bilateral cataracts Seasonal allergies Anemia Segmental and somatic dysfunction of lumbar region Segmental and somatic dysfunction of thoracic region Segmental and somatic dysfunction of cervical region Acute cholecystitis Obesity Hypertension Rheumatoid arthritis Surgical History History of pituitary surgery History of esophagogastroduodenosco py (EGD) ( 05/29/18) S/P colonoscopy ( 05/29/18) History of esophagogastroduodenosco py (EGD) Hx of tonsillectomy Hx of colonoscopy Hx of cholecystectomy S/P cholecystectomy Family History Mother Cancer Hypertension Father Diabetes Prostate cancer Heart disease stent placed High cholesterol Hypertension Social History household members: spouse current occupational status: employed current occupation: [employer] Smoking Status: Never smoker alcohol intake: never substance use type: does not use HPI Back Pain Chief Complaint: Neck and Low Back Pain Visit Number: 4 Details: MYRANDA OLEA is a 64 year old male here to follow up on ongoing neck and low back discomfort. Pt. complains of neck pain and stiffness but denies recent headaches today. He rates his neck/upper back pain 7/10 and states his pain is equal bilaterally and extends into his upper back. He also states his low back is a deep, constant, painful, ache equal bi (more content not included)... Normal [facility] Gastroenterology Visit Repor ton 12-20-2024 Gastroenterology Visit Report [facility] G[facility]enter[facility] [address] [place] [address] OFFICE VISIT Date of Service: 12/20/24 MR#: [id number] Acct: [id number] Name: MYRANDA OLEA Rep #: [id number] : 1960 Provider: ONION FARMER-C Rayna A nthony Age/Sex: 64/M Location: [facility] Status: Signed Intake Vital Signs 12/13/24 09:12 12/20/24 14:37 Height 5 ft 6.5 in 5 ft 6 in Weight: 243 lb 5 oz 241 lb 4 oz BMI 38.7 38.9 BP 168/90 H 165/94 H Blood Pressure Location Lt brachial Position Sitting Respiration 18 16 Pulse 71 64 Pulse Source Monitor Temp 98.6 F Pulse Oximetry (%) 96 94 Oxygen Delivery Method room air room air Intake Visit Reasons: CONSULT UPPER GI ENDOSCOPY Chief Complaint: F/u for anemia evaluation. Reel Film Inspector Required: No Accompanied by: Is patient in pain?: No Allergies diltiazem (From Cardizem) Allergy (Unknown, Verified 12/20/24 14:44) PT UNSURE OF REACTION Milk Containing Products (Dairy) Adverse Reaction (Unknown, Verified 12/20/24 14:44) unknown Medications ???Medication ???Instructions ???Recorded ???Confirmed ???Type carvedilol 25 mg tablet 25 mg PO BID 12/22/15 12/20/24 His tory finasteride 5 mg tablet 5 mg PO DAILY 12/22/15 12/20/24 Hi story hydralazine 100 mg tablet 100 mg PO TID 12/22/15 12/20/24 Hi story lisinopril 40 mg tablet 40 mg PO DAILY 12/22/15 12/20/24 H istory multivitamin 1 tab PO DAILY 08/19/17 12/20/24 H istory hydrocortisone 2.5 % topical cream 1 applic topical BID PRN Skin 12/20/24 History Cleansing ketoconazole 2 % shampoo 1 applic topical QODAY 05/25/21 History oxybutynin chloride 10 mg 10 mg PO DAILY 05/25/21 12/20/24 H istory tablet,extended release 24 hr cholecalciferol (vitamin D3) 25 25 mcg PO DAILY 12/10/22 12/20/24 History mcg (1,000 unit) capsule sulfasalazine 500 mg 1,000 mg PO BID 12/15/23 12/20/24 History tablet,delayed release levothyroxine 75 mcg tablet 75 mcg PO DAILY 06/14/24 12/20/24 History levothyroxine 75 mcg tablet 150 mcg PO CLEARY 06/14/24 12/20/24 Hi story (Euthyrox) blood sugar diagnostic (OneTouch #100 ea 07/26/24 12/20/24 Rx Verio test strips) blood-glucose meter (OneTouch #1 ea 07/26/24 12/20/24 Rx Verio Reflect Meter) lancets 33 gauge (OneTouch Delica #100 ea 10/15/24 12/20/24 Rx Plus Lancet) acetaminophen 650 mg 650 mg PO Q8H 11/20/24 12/20/24 Hi story tablet,extended release atorvastatin 20 mg tablet 10 mg PO QPM 12/05/24 12/20/24 His tory clonidine HCl 0.3 mg tablet 0.3 mg PO BID 12/05/24 12/20/24 Hi story clonidine HCl 0.3 mg tablet 0.6 mg PO QHS 12/05/24 12/20/24 Hi story hydrocortisone 10 mg tablet 10 mg PO BID 12/05/24 12/20/24 His tory Trulicity 1.5 mg/0.5 mL 1.5 mg (0.5 mL) subcut QWEEK #2 mL 12/20/24 12/20/24 Rx subcutaneous pen injector (dulaglutide) ferrous sulfate 325 mg (65 mg 325 mg PO .2XWK 12/20/24 12/20/24 History iron) tablet (Feosol) [facility] Medical History Mixed hyperlipidemia Secondary adrenal insufficiency Uncontrolled hypertension Acute sinusitis, unspecified Diabetes Secondary hypothyroidism Pancreatic calcification Wears glasses Diabetes Thyroid disease Rheumatoid arthritis Bladder disease Anemia Excessive bleeding Back pain Non-smoker CPAP (continuous positive airway pressure) dependence Leg cramps Hypertension History of colon polyps Chronic pancreatitis Lactose intolerance DJD (degenerative joint disease), lumbar Eosinophilic esophagitis Hypertriglyceridemia Bilateral cataracts Seasonal allergies Anemia Segmental and somatic dysfunction of lumbar region Segmental and somatic dysfunction of thoracic region Segmental and somatic dysfunction of cervical region Acute cholecystitis Obesity Hypertension Rheumatoid arthritis Surgical History History of pituitary surgery History of esophagogastroduodenosco py (EGD) ( 05/29/18) S/P colonoscopy ( 05/29/18) History of esophagogastroduodenosco py (EGD) Hx of tonsillectomy Hx of colonoscopy Hx of cholecystectomy S/P cholecystectomy Family History Mother Cancer Hypertension Father Diabetes Prostate cancer Heart disease stent placed High cholesterol Hypertension Social History household members: spouse current occupational status: employed current occupation: [employer] Smoking Status: Never smoker alcohol intake: never substance use type: does not use HPI HPI Chief Complaint: F/u for anemia evaluation. Details: aron LANDIN (more content not included)... Normal [facility] Oncology Visit Reporton 12-04 Oncology Visit Report [facility] [address] [place] [address] OFFICE VISIT Date of Service: 12/13/24911 MR#: [id number] Acct: [id number] Name: SRINIVASDIANAMYRANDA Meza Rep #: [id number] : 1960 From: James Chinchilla MD Age/Sex: 64/M Location: [place] Status: Signed HPI Subjective Date of Service 12/13/24 Chief Complaint F/u for anemia evaluation. History of Present Illness 64 y.o.man was found to have mild anemia and referred for further evaluation. He had colonoscopy last year, found to have diverticulosis and polyps. Had blood work, stool occult blood done and comes for follow up. [facility] Medical History Mixed hyperlipidemia Secondary adrenal insufficiency Uncontrolled hypertension Acute sinusitis, unspecified Diabetes Secondary hypothyroidism Pancreatic calcification Wears glasses Diabetes Thyroid disease Rheumatoid arthritis Bladder disease Anemia Excessive bleeding Back pain Non-smoker CPAP (continuous positive airway pressure) dependence Leg cramps Hypertension History of colon polyps Chronic pancreatitis Lactose intolerance DJD (degenerative joint disease), lumbar Eosinophilic esophagitis Hypertriglyceridemia Bilateral cataracts Seasonal allergies Anemia Segmental and somatic dysfunction of lumbar region Segmental and somatic dysfunction of thoracic region Segmental and somatic dysfunction of cervical region Acute cholecystitis Obesity Hypertension Rheumatoid arthritis Surgical History History of pituitary surgery History of esophagogastroduodenosco py (EGD) ( 05/29/18) S/P colonoscopy ( 05/29/18) History of esophagogastroduodenosco py (EGD) Hx of tonsillectomy Hx of colonoscopy Hx of cholecystectomy S/P cholecystectomy Family History Mother Cancer Hypertension Father Diabetes Prostate cancer Heart disease stent placed Social History household members: spouse current occupational status: employed current occupation: [employer] Smoking Status: Never smoker alcohol intake: never substance use type: does not use Intake Vital Signs 12/05/24 13:55 12/13/24 09:12 Height 5 ft 6.5 in 5 ft 6.5 in Weight: 111.385 kg 110.365 kg BMI 39.0 38.7 BP 166/80 H 168/90 H Blood Pressure Location Lt brachial Lt brachial Position Sitting Sitting Respiration 18 18 Pulse 65 71 Pulse Source Monitor Monitor Temp 98.4 F 98.6 F Temperature Source Temporal Artery Temporal Artery Pulse Oximetry (%) 97 96 Oxygen Delivery Method room air room air Intake Is patient in pain?: No Allergies diltiazem (From Cardizem) Allergy (Unknown, Verified 12/13/24 09:14) PT UNSURE OF REACTION Milk Containing Products (Dairy) Adverse Reaction (Unknown, Verified 12/13/24 09:14) unknown Medications ???Medication ???Instructions ???Recorded ???Confirmed ???Type carvedilol 25 mg tablet 25 mg PO BID 12/22/15 12/13/24 His tory finasteride 5 mg tablet 5 mg PO DAILY 12/22/15 12/13/24 Hi story hydralazine 100 mg tablet 100 mg PO TID 12/22/15 12/13/24 Hi story lisinopril 40 mg tablet 40 mg PO DAILY 12/22/15 12/13/24 H istory multivitamin 1 tab PO DAILY 08/19/17 12/13/24 H istory hydrocortisone 2.5 % topical cream 1 applic topical BID PRN Skin 12/13/24 History Cleansing ketoconazole 2 % shampoo 1 applic topical QODAY 05/25/21 History oxybutynin chloride 10 mg 10 mg PO DAILY 05/25/21 12/13/24 H istory tablet,extended release 24 hr cholecalciferol (vitamin D3) 25 25 mcg PO DAILY 12/10/22 12/13/24 History mcg (1,000 unit) capsule sulfasalazine 500 mg 1,000 mg PO BID 12/15/23 12/13/24 History tablet,delayed release Trulicity 1.5 mg/0.5 mL 1.5 mg (0.5 mL) subcut QWEEK #2 mL 03/29/24 12/13/24 Rx subcutaneous pen injector (dulaglutide) Held on 06/14/24. Instructions: FOR COLONOSCOPY 06/18/2024 levothyroxine 75 mcg tablet 75 mcg PO DAILY 06/14/24 12/13/24 History levothyroxine 75 mcg tablet 150 mcg PO CLEARY 06/14/24 12/13/24 Hi story (Euthyrox) blood sugar diagnostic (OneTouch #100 ea 07/26/24 12/13/24 Rx Verio test strips) blood-glucose meter (OneTouch #1 ea 07/26/24 12/13/24 Rx Verio Reflect Meter) lancets 33 gauge (OneTouch Delica #100 ea 10/15/24 12/13/24 Rx Plus Lancet) acetaminophen 650 mg 650 mg PO Q8H 11/20/24 12/13/24 Hi story tablet,extended release atorvastatin 20 mg tablet 10 mg PO QPM 12/05/24 12/13/24 His tory clonidine HCl 0.3 mg tablet 0.3 mg PO BID 12/05/24 12/13/24 Hi story clonidine HCl 0.3 mg tablet 0.6 mg PO QHS (more content not included)... Normal [facility] Erythropoietinon 12-07-2024 ERYTHROPOIETIN 23.3 mIU/mL High 2.6-18.5 [facility] Comment on above: Result Comment: [employer] DxI 800 Immunoassay System Values obtained with different assay methods or kits cannot be used interchangeably. Results cannot be interpreted as absolute evidence of the presence or absence of malignant disease. Performed By: #### L 400.0001, L500.4050, L101.9900, L3100.1850, L100.9950, L504.2610, L503.0106, L503.6550, L3100.1350, L501.6710, L100.0100, L503.6030 ####[facility] [address] [place], [place], [address] Haptoglobinon 12-07-2024 HAPTOGLOBIN 73 mg/dL Normal 32-363 [facility] Comment on above: Result Comment: Perf ormed at: - [facility] [address] [id number] Yoghurt Maker: Axel Cronin PhD, Phone: [phone] Performed By: #### L 400.0001, L500.4050, L101.9900, L3100.1850, L100.9950, L504.2610, L503.0106, L503.6550, L3100.1350, L501.6710, L100.0100, L503.6030 ####[facility] [address] [place], [place], [phone] Lower GI hemoglobin IA Ql (S tl)Ordered By: James Chinchilla on 12-06-2024 Stool Occult Blood (SHERICE) [facility] Stool Occult Blood iFOBon STOB Negative Normal [facility] Comment on above: Performed By: #### L 501.9940 #### [facility] [address] [facility] [place], [place], [phone] Stool gastrointestinal hemog lobin detection by immunologic methodOrdered By: James Chinchilla on 12-06-2024 Lower GI hemoglobin IA Ql (Stl) [facility] Absolute lymphocyte countOrd ered By: James Chinchilla on 12-05-2024 Lymphocytes Auto (Unsp spec) [#/Vol] 1.68 10*3/uL 0.83-4.51 [facility] Absolute neutrophil countOrd ered By: James Chinchilla on 12-05-2024 Neutrophils (Bld) [#/Vol] 4.1 10*3/uL 2.0-7.7 [facility] Anion gap in Serum or Plasma Ordered By: James Chinchilla on 12-05-2024 Anion gap [Moles/Vol] 10 mmol/L 5-15 [facility] Automated lymphocyte count a s percentage of total leukocytesOrdered By: James Rameyearl on 12-05-2024 Lymphocytes/100 WBC Auto (Unsp spec) 25.0 % 19-41 [facility] BUN/creatinine ratioOrdered By: [facility] on 12-05-2024 Urea nitrogen/Creatinine [Mass ratio] 17.9 mg/mg 10-20 [facility] Basophil percentageOrdered B y: James Rameyearl on 12-05-2024 Basophils/100 WBC (Bld) 1.5 % High 0-1 [facility] Bilirubin Test strip Ql (U)O rdered By: James Rameyearl on 12-05-2024 Bilirubin Ql (U) Negative Negative [facility] Bilirubin, totalOrdered By: James Rameyearl on 12-05-2024 Bilirubin [Mass/Vol] 0.67 mg/dL 0.00-1.30 [facility] CBC W/Diff, Automatedon Absolute Lymph 1.68 X10 3/uL Normal 0.83-4.51 [facility] Comment on above: Performed By: #### L 400.0001, L500.4050, L101.9900, L3100.1850, L100.9950, L504.2610, L503.0106, L503.6550, L3100.1350, L501.6710, L100.0100, L503.6030 #### [facility] [address] [facility] [place], [place], [phone] Absolute Neut 4.1 X10 3/uL Normal 2.0-7.7 [facility] Comment on above: Performed By: #### L 400.0001, L500.4050, L101.9900, L3100.1850, L100.9950, L504.2610, L503.0106, L503.6550, L3100.1350, L501.6710, L100.0100, L503.6030 #### [facility] [address] [facility] [place], [address] Basophils/100 WBC (Bld) 1.5 % High 0-1 [facility] Comment on above: Performed By: #### L 400.0001, L500.4050, L101.9900, L3100.1850, L100.9950, L504.2610, L503.0106, L503.6550, L3100.1350, L501.6710, L100.0100, L503.6030 #### [facility] [address] [place], [place], [phone] ([phone] Eosinophils/100 WBC (Bld) 3.1 % Normal 0-5 [facility] Comment on above: Performed By: #### L 400.0001, L500.4050, L101.9900, L3100.1850, L100.9950, L504.2610, L503.0106, L503.6550, L3100.1350, L501.6710, L100.0100, L503.6030 #### [facility] [address] [place], [address] (115) Erythrocyte distribution width (RBC) [Ratio] 14.1 % Normal 11.6-14.6 [facility] Comment on above: Performed By: #### L 400.0001, L500.4050, L101.9900, L3100.1850, L100.9950, L504.2610, L503.0106, L503.6550, L3100.1350, L501.6710, L100.0100, L503.6030 #### [facility] [address] [place], [address] (840) Hematocrit (Bld) [Volume fraction] 38.2 % Low 40-54 [facility] Comment on above: Performed By: #### L 400.0001, L500.4050, L101.9900, L3100.1850, L100.9950, L504.2610, L503.0106, L503.6550, L3100.1350, L501.6710, L100.0100, L503.6030 #### [facility] [address] [place], [address] Hemoglobin (Bld) [Mass/Vol] 12.4 g/dL Low 13.0-16.5 [facility] Comment on above: Performed By: #### L 400.0001, L500.4050, L101.9900, L3100.1850, L100.9950, L504.2610, L503.0106, L503.6550, L3100.1350, L501.6710, L100.0100, L503.6030 #### [facility] [address] [place], [address] IG% 0.700 Normal 0.0-0.9 [facility] Comment on above: Result Comment: IG% - Immature Granulocytes (promyelocytes, myelocytes and metamyelocytes) > 1% indicates that a LEFT SHIFT is Present. Performed By: #### L 400.0001, L500.4050, L101.9900, L3100.1850, L100.9950, L504.2610, L503.0106, L503.6550, L3100.1350, L501.6710, L100.0100, L503.6030 #### [facility] [address] [place], [address] Lymphocytes/100 WBC (Bld) 25.0 % Normal 19-41 [facility] Comment on above: Performed By: #### L 400.0001, L500.4050, L101.9900, L3100.1850, L100.9950, L504.2610, L503.0106, L503.6550, L3100.1350, L501.6710, L100.0100, L503.6030 #### [facility] [address] [place], [address] MCH (RBC) [Entitic mass] 29.6 pg Normal 27.0-32.0 [facility] Comment on above: Performed By: #### L 400.0001, L500.4050, L101.9900, L3100.1850, L100.9950, L504.2610, L503.0106, L503.6550, L3100.1350, L501.6710, L100.0100, L503.6030 #### [facility] [address] [place], [place], [phone] MCHC (RBC) [Mass/Vol] 32.5 g/dL Normal 32-36 [facility] Comment on above: Performed By: #### L 400.0001, L500.4050, L101.9900, L3100.1850, L100.9950, L504.2610, L503.0106, L503.6550, L3100.1350, L501.6710, L100.0100, L503.6030 #### [facility] [address] [place], [place], [phone] MCV (RBC) [Entitic vol] 91.2 fL Normal 80-94 [facility] Comment on above: Performed By: #### L 400.0001, L500.4050, L101.9900, L3100.1850, L100.9950, L504.2610, L503.0106, L503.6550, L3100.1350, L501.6710, L100.0100, L503.6030 #### [facility] [address] [place], [place], [id number] Monocytes/100 WBC (Bld) 8.6 % Normal 0-10 [facility] Comment on above: Performed By: #### L 400.0001, L500.4050, L101.9900, L3100.1850, L100.9950, L504.2610, L503.0106, L503.6550, L3100.1350, L501.6710, L100.0100, L503.6030 #### [facility] [address] [place], [address] Neutrophils/100 WBC (Bld) 61.1 % Normal 47-70 [facility] Comment on above: Performed By: #### L 400.0001, L500.4050, L101.9900, L3100.1850, L100.9950, L504.2610, L503.0106, L503.6550, L3100.1350, L501.6710, L100.0100, L503.6030 #### [facility] [address] [place], [address] Nucleated RBC (Bld) [#/Vol] 0 10*3/uL Normal 0-5 [facility] Comment on above: Performed By: #### L 400.0001, L500.4050, L101.9900, L3100.1850, L100.9950, L504.2610, L503.0106, L503.6550, L3100.1350, L501.6710, L100.0100, L503.6030 #### [facility] [address] [facility] [place], [address] Platelet mean volume (Bld) [Entitic vol] 9.9 fL Normal 6.2-12.0 [facility] Comment on above: Performed By: #### L 400.0001, L500.4050, L101.9900, L3100.1850, L100.9950, L504.2610, L503.0106, L503.6550, L3100.1350, L501.6710, L100.0100, L503.6030 #### [facility] [address] [place], [address] Platelets (Bld) [#/Vol] 251 10*3/uL Normal 150-450 [facility] Comment on above: Performed By: #### L 400.0001, L500.4050, L101.9900, L3100.1850, L100.9950, L504.2610, L503.0106, L503.6550, L3100.1350, L501.6710, L100.0100, L503.6030 #### [facility] [address] [place], [address] RBC (Bld) [#/Vol] 4.19 10*6/uL Low 4.6-6.2 [facility] Comment on above: Performed By: #### L 400.0001, L500.4050, L101.9900, L3100.1850, L100.9950, L504.2610, L503.0106, L503.6550, L3100.1350, L501.6710, L100.0100, L503.6030 #### [facility] [address] [place], [address] RDW SD 47.0 fl High 35.1-43.9 [facility] Comment on above: Performed By: #### L 400.0001, L500.4050, L101.9900, L3100.1850, L100.9950, L504.2610, L503.0106, L503.6550, L3100.1350, L501.6710, L100.0100, L503.6030 #### [facility] [address] [place], [address] WBC (Bld) [#/Vol] 6.7 10*3/uL Normal 4.4-11.0 [facility] Comment on above: Performed By: #### L 400.0001, L500.4050, L101.9900, L3100.1850, L100.9950, L504.2610, L503.0106, L503.6550, L3100.1350, L501.6710, L100.0100, L503.6030 #### [facility] [address] [place], [address] CRPon 12-05-2024 C-REACTIVE PROT < 3.00 Normal 0.0-3.0 [facility] Comment on above: Performed By: #### L 400.0001, L500.4050, L101.9900, L3100.1850, L100.9950, L504.2610, L503.0106, L503.6550, L3100.1350, L501.6710, L100.0100, L503.6030 ####[facility] [address] [place], [address] CRP [Mass/Vol]Ordered By: Shonna Chinchilla on 12-05-2024 C-Reactive Protein Extended Range < 3.00 mg/L 0.0-3.0 [facility] Calculated total iron bindin g capacityOrdered By: James Chinchilla on 12-05-2024 Total Iron Binding Capacity 290 ug/dL 250-450 [facility] Carbon dioxide, total [Moles /volume] in Central venous bloodOrdered By: James Chinchilla on 12-05-2024 CO2 [Moles/Vol] 26.7 mmol/L 21.0-32.0 [facility] Chloride assayOrdered By: Shonna Chinchilla on 12-05-2024 Chloride [Moles/Vol] 101 mmol/L 98-108 [facility] Comprehensive Metabolic Prof ilon 12-05-2024 Albumin [Mass/Vol] 5.0 g/dL High 3.4-4.8 [facility] Comment on above: Performed By: #### L 400.0001, L500.4050, L101.9900, L3100.1850, L100.9950, L504.2610, L503.0106, L503.6550, L3100.1350, L501.6710, L100.0100, L503.6030 #### [facility] [address] [place], [place], [id number] Albumin/Globulin [Mass ratio] 1.9 {ratio} Normal 0.9-2.4 [facility] Comment on above: Performed By: #### L 400.0001, L500.4050, L101.9900, L3100.1850, L100.9950, L504.2610, L503.0106, L503.6550, L3100.1350, L501.6710, L100.0100, L503.6030 #### [facility] [address] [place], [address] (514) ALK PHOS 64 U/L Normal 40-129 [facility] Comment on above: Performed By: #### L 400.0001, L500.4050, L101.9900, L3100.1850, L100.9950, L504.2610, L503.0106, L503.6550, L3100.1350, L501.6710, L100.0100, L503.6030 #### [facility] [address] [facility] [place], [address] ALT [Catalytic activity/Vol] 42 U/L Normal <=46 [facility] Comment on above: Performed By: #### L 400.0001, L500.4050, L101.9900, L3100.1850, L100.9950, L504.2610, L503.0106, L503.6550, L3100.1350, L501.6710, L100.0100, L503.6030 #### [facility] [address] [facility] [place], [address] (127) AST [Catalytic activity/Vol] 32 U/L Normal <=37 [facility] Comment on above: Performed By: #### L 400.0001, L500.4050, L101.9900, L3100.1850, L100.9950, L504.2610, L503.0106, L503.6550, L3100.1350, L501.6710, L100.0100, L503.6030 #### [facility] [address] [place], [address] Bilirubin [Mass/Vol] 0.67 mg/dL Normal 0.00-1.30 [facility] Comment on above: Performed By: #### L 400.0001, L500.4050, L101.9900, L3100.1850, L100.9950, L504.2610, L503.0106, L503.6550, L3100.1350, L501.6710, L100.0100, L503.6030 #### [facility] [address] [place], [place], [phone] (160) BUN/CRE 17.9 RATIO Normal 10-20 [facility] Comment on above: Performed By: #### L 400.0001, L500.4050, L101.9900, L3100.1850, L100.9950, L504.2610, L503.0106, L503.6550, L3100.1350, L501.6710, L100.0100, L503.6030 #### [facility] [address] [place], [place], [phone] (369) Calcium [Mass/Vol] 9.5 mg/dL Normal 7.6-11.0 [facility] Comment on above: Performed By: #### L 400.0001, L500.4050, L101.9900, L3100.1850, L100.9950, L504.2610, L503.0106, L503.6550, L3100.1350, L501.6710, L100.0100, L503.6030 #### [facility] [address] [place], [place], [phone] (875) Chloride [Moles/Vol] 101 mmol/L Normal 98-108 [facility] Comment on above: Performed By: #### L 400.0001, L500.4050, L101.9900, L3100.1850, L100.9950, L504.2610, L503.0106, L503.6550, L3100.1350, L501.6710, L100.0100, L503.6030 #### [facility] [address] [place], [place], [phone] (789) CO2 [Moles/Vol] 26.7 mmol/L Normal 21.0-32.0 [facility] Comment on above: Performed By: #### L 400.0001, L500.4050, L101.9900, L3100.1850, L100.9950, L504.2610, L503.0106, L503.6550, L3100.1350, L501.6710, L100.0100, L503.6030 #### [facility] [address] [place], [place], [id number] Creatinine [Mass/Vol] 0.99 mg/dL Normal 0.70-1.20 [facility] Comment on above: Performed By: #### L 400.0001, L500.4050, L101.9900, L3100.1850, L100.9950, L504.2610, L503.0106, L503.6550, L3100.1350, L501.6710, L100.0100, L503.6030 #### [facility] [address] [place], [place], [id number] GAP 10 Normal 5-15 [facility] Comment on above: Performed By: #### L 400.0001, L500.4050, L101.9900, L3100.1850, L100.9950, L504.2610, L503.0106, L503.6550, L3100.1350, L501.6710, L100.0100, L503.6030 #### [facility] [address] [place], [place], [id number] GFR/1.73 sq M.predicted among non-blacks MDRD (S/P/Bld) [Vol rate/Area] 85 mL/min/{1.73_m2} Normal >60 [facility] Comment on above: Result Comment: mL/m in/1.73m2 CKD-EPI Creatinine Equation (2020) Performed By: #### L 400.0001, L500.4050, L101.9900, L3100.1850, L100.9950, L504.2610, L503.0106, L503.6550, L3100.1350, L501.6710, L100.0100, L503.6030 #### [facility] [address] [place], [address] Globulin (S) [Mass/Vol] 2.6 g/dL Normal 2.2-4.2 [facility] Comment on above: Performed By: #### L 400.0001, L500.4050, L101.9900, L3100.1850, L100.9950, L504.2610, L503.0106, L503.6550, L3100.1350, L501.6710, L100.0100, L503.6030 #### [facility] [address] [place], [address] Glucose [Mass/Vol] 116 mg/dL High 70-99 [facility] Comment on above: Performed By: #### L 400.0001, L500.4050, L101.9900, L3100.1850, L100.9950, L504.2610, L503.0106, L503.6550, L3100.1350, L501.6710, L100.0100, L503.6030 #### [facility] [address] [place], [address] Potassium [Moles/Vol] 3.9 mmol/L Normal 3.3-5.1 [facility] Comment on above: Performed By: #### L 400.0001, L500.4050, L101.9900, L3100.1850, L100.9950, L504.2610, L503.0106, L503.6550, L3100.1350, L501.6710, L100.0100, L503.6030 #### [facility] [address] [place], [address] Sodium [Moles/Vol] 138 mmol/L Normal 133-145 [facility] Comment on above: Performed By: #### L 400.0001, L500.4050, L101.9900, L3100.1850, L100.9950, L504.2610, L503.0106, L503.6550, L3100.1350, L501.6710, L100.0100, L503.6030 #### [facility] [address] [place], [address] T PROT 7.5 g/dL Normal 5.9-8.4 [facility] Comment on above: Performed By: #### L 400.0001, L500.4050, L101.9900, L3100.1850, L100.9950, L504.2610, L503.0106, L503.6550, L3100.1350, L501.6710, L100.0100, L503.6030 #### [facility] [address] [place], [address] Urea nitrogen [Mass/Vol] 18 mg/dL Normal 4-19 [facility] Comment on above: Performed By: #### L 400.0001, L500.4050, L101.9900, L3100.1850, L100.9950, L504.2610, L503.0106, L503.6550, L3100.1350, L501.6710, L100.0100, L503.6030 #### [facility] [address] [place], [address] Eosinophil percentageOrdered By: James Chinchilla on 12-05-2024 Eosinophils/100 WBC (Bld) 3.1 % 0-5 [facility] Epithelial cells.squamous LM Ql (Urine sed)Ordered By: James Chinchilla on 12-05-2024 Epithelial cells.squamous LM.HPF (Urine sed) [#/Area] 0 /[HPF] 0-5 [facility] Erythrocyte Sed Rateon 12-05 SED RATE 4 mm/hr Normal 0-20 [facility] Comment on above: Performed By: #### L 400.0001, L500.4050, L101.9900, L3100.1850, L100.9950, L504.2610, L503.0106, L503.6550, L3100.1350, L501.6710, L100.0100, L503.6030 #### [facility] [address] [place], [place], [id number] Erythrocyte distribution wid th (RBC) [Ratio]Ordered By: James Chinchilla on 12-05-2024 Erythrocyte distribution width (RBC) [Entitic vol] 47.0 fL High 35.1-43.9 [facility] Erythrocyte distribution wid th ratioOrdered By: [facility] on 12-05-2024 Erythrocyte distribution width (RBC) [Ratio] 14.1 % 11.6-14.6 [facility] Erythrocyte distribution wid th standard deviationOrdered By: [facility] on 12-05-2024 Erythrocyte distribution width (RBC) [Ratio] 47.0 fl High 35.1-43.9 [facility] Erythrocyte sedimentation ra teOrdered By: James [facility] on 12-05-2024 ESR (Bld) [Velocity] 4 mm/h 0-20 [facility] Erythropoietin (EPO) QnOrder ed By: James Chinchilla on 12-05-2024 Erythropoietin 23.3 mIU/mL High 2.6-18.5 [facility] Comment on above: [employer] el DxI 800 Immunoassay SystemValues obtained with different assay methods or kits cannotbe used interchangeably. Results cannot be interpreted asabsolute evidence of the presence or absence of malignantdisease. Ferritinon 12-05-2024 Ferritin [Mass/Vol] 113 ng/mL Normal 37-417 [facility] Comment on above: Performed By: #### L 400.0001, L500.4050, L101.9900, L3100.1850, L100.9950, L504.2610, L503.0106, L503.6550, L3100.1350, L501.6710, L100.0100, L503.6030 ####[facility] [address] [place], [place], [id number] GFR/1.73 sq M.predicted bina g non-blacks MDRD (S/P/Bld) [Vol rate/Area]Ordered By: James Chinchilla on 12-05-2024 Estimated GFR (MDRD) Non-Af Amer 85 >60 [facility] Comment on above: mL/min/1.73m2 CKD-EP I Creatinine Equation (2020) Glomerular filtration rate ( GFR) estimation/1.73 sq m using serum, plasma, or whole bOrdered By: James Chinchilla on 12-05-2024 GFR/1.73 sq M.predicted among non-blacks MDRD (S/P/Bld) [Vol rate/Area] 85 mL/min/{1.73_m2} >60 [facility] Comment on above: mL/min/1.73m2 CKD-EP I Creatinine Equation (2020) Glucose Ql (U)Ordered By: Shonna Chinchilla on 12-05-2024 Urine Glucose (UA) Normal mg/dl Normal [facility] HaptoglobinOrdered By: Gilmer Chinchilla on 12-05-2024 Haptoglobin 73 mg/dL 32-363 [facility] Comment on above: Performed at: [address] Director: Axel Cronin PhD, Phone: [phone] Hematocrit Auto (Bld) [Volum e fraction]Ordered By: James Chinchilla on 12-05-2024 Hematocrit (Bld) [Volume fraction] 38.2 % Low 40-54 [facility] Hemoglobin (Reticulocytes) [ Entitic mass]Ordered By: James Chinchilla on 12-05-2024 Reticulocyte Hemoglobin Equivalent 32.2 pg 30-35 [facility] Hemoglobin measurementOrdere d By: James Chinchilla on 12-05-2024 Hemoglobin (Bld) [Mass/Vol] 12.4 g/dL Low 13.0-16.5 [facility] Immature granulocytes/100 WB C Auto (Bld)Ordered By: James Chinchilla on 12-05-2024 Immature granulocytes/100 WBC (Bld) 0.700 % 0.0-0.9 [facility] Comment on above: IG% - Immature Granu locytes (promyelocytes, myelocytes and metamyelocytes) > 1% indicates that a LEFT SHIFT is Present. Immature reticulocyte fracti onOrdered By: James Chinchilla on 12-05-2024 Immature Reticulocyte Fraction 17.40 % High 3.00-15.90 [facility] Iron (Unsp spec) [Mass/Mass] Ordered By: James Chinchilla on 12-05-2024 Iron [Mass/Vol] 54 ug/dL Low 65-175 [facility] Iron measurement (mass/mass) Ordered By: James Chinchilla on 12-05-2024 Iron (Unsp spec) [Mass/Mass] 54 ug/dL Low 65-175 [facility] Iron saturation [Mass fracti on]Ordered By: James Chinchilla on 12-05-2024 Iron Saturation 18.6 % 9-55 [facility] Comment on above: Previous reported re sult: 19.0 %Edited by: EARL on 12/05/24:1606 AMENDED REPORT 12/05/24 1606 IRON SATURATION previously reported as: 19.0 % Iron+Iron Binding Capacityon 12-05-2024 Iron [Mass/Vol] 54 ug/dL Low 65-175 [facility] Comment on above: Performed By: #### L 400.0001, L500.4050, L101.9900, L3100.1850, L100.9950, L504.2610, L503.0106, L503.6550, L3100.1350, L501.6710, L100.0100, L503.6030 ####[facility] [address] [place], [place], [id number] UIBC 236 ug/dL Normal 228-428 [facility] Comment on above: Performed By: #### L 400.0001, L500.4050, L101.9900, L3100.1850, L100.9950, L504.2610, L503.0106, L503.6550, L3100.1350, L501.6710, L100.0100, L503.6030 ####[facility] [address] [place], [place], [id number] Ketones Test strip Ql (U)Ord ered By: James Chinchilla on 12-05-2024 Ketones Ql (U) Negative Negative [facility] L503.0106on 12-05-2024 Cobalamin (Vitamin B12) [Mass/Vol] 609 pg/mL Normal 180-914 [facility] Comment on above: Performed By: #### L 400.0001, L500.4050, L101.9900, L3100.1850, L100.9950, L504.2610, L503.0106, L503.6550, L3100.1350, L501.6710, L100.0100, L503.6030 #### [facility] [address] [place], [place], [id number] LDHon 12-05-2024 LDH 221 U/L Normal 87-241 [facility] Comment on above: Order Comment: 1 Performed By: #### L 400.0001, L500.4050, L101.9900, L3100.1850, L100.9950, L504.2610, L503.0106, L503.6550, L3100.1350, L501.6710, L100.0100, L503.6030 ####[facility] [address] [facility] [place], [place], [id number] Laboratory - Chemistry and C hemistry - challengeOrdered By: James Chinchilla on 12-05-2024 AST [Catalytic activity/Vol] 32 U/L <38 [facility] Lactate dehydrogenase (LDH) measurementOrdered By: James Chinchilla on 12-05-2024 LDH [Catalytic activity/Vol] 221 U/L 87-241 [facility] Lymphocytes Auto (Unsp spec) [#/Vol]Ordered By: James Chinchilla on 12-05-2024 Lymphocytes (Bld) [#/Vol] 1.68 10*3/uL 0.83-4.51 [facility] Lymphocytes/100 WBC Auto (Un sp spec)Ordered By: James Chinchilla on 12-05-2024 Lymphocytes/100 WBC (Bld) 25.0 % 19-41 [facility] MCV (mean corpuscular volume ) determinationOrdered By: James Chinchilla on 12-05-2024 MCV (RBC) [Entitic vol] 91.2 fL 80-94 [facility] Mean corpuscular hemoglobin (MCH) determinationOrdered By: James Chinchilla on 12-05-2024 MCH (RBC) [Entitic mass] 29.6 pg 27.0-32.0 [facility] Mean corpuscular hemoglobin concentration (MCHC) determinationOrdered By: James Chinchilla on 12-05-2024 MCHC (RBC) [Mass/Vol] 32.5 g/dL 32-36 [facility] Mean platelet volume determi nationOrdered By: James Chinchilla on 12-05-2024 Platelet mean volume (Bld) [Entitic vol] 9.9 fL 6.2-12.0 [facility] Microscopic analysis of urin e for red blood cells (RBC)Ordered By: James Chinchilla on 12-05-2024 Microscopic analysis of urine for red blood cells (RBC) 0 SEEN /hpf 0-5 [facility] Urine RBC 0 SEEN /hpf 0-5 [facility] Monocyte percentageOrdered B y: James Chinchilla on 12-05-2024 Monocytes/100 WBC (Bld) 8.6 % 0-10 [facility] Mucus LM Ql (Urine sed)Order ed By: James Chinchilla on 12-05-2024 Mucus Ql (Urine sed) 0 SEEN /hpf [facility] Neutrophil percentageOrdered By: James Chinchilla on 12-05-2024 Neutrophils/100 WBC (Bld) 61.1 % 47-70 [facility] Nitrite Test strip Ql (U)Ord ered By: James Chinchilla on 12-05-2024 Nitrite Ql (U) Negative Negative [facility] No Panel InformationOrdered By: James Chinchilla on 12-05-2024 Unsaturated Iron Binding Capacity 236 ug/dL 228-428 [facility] Nucleated red blood cell per centageOrdered By: James Chinchilla on 12-05-2024 Nucleated RBC/100 WBC (Bld) [Ratio] 0 % 0-5 [facility] Oncology Visit Reporton Oncology Visit Report [facility] [place] [address] OFFICE VISIT Date of Service: 12/05/24 1355 MR#: [id number] Acct: [id number] Name: MYRANDA OLEA Rep #: [id number] : 1960 From: James Chinchilla MD Age/Sex: 64/M Location: [facility] Status: Signed HPI Subjective Date of Service 12/05/24 Chief Complaint Referred for anemia evaluation. History of Present Illness 64 y.o.man was found to have mild anemia and referred for further evaluation. He had colonoscopy last year, found to have diverticulosis and polyps. [facility] Medical History Mixed hyperlipidemia Secondary adrenal insufficiency Uncontrolled hypertension Acute sinusitis, unspecified Diabetes Secondary hypothyroidism Pancreatic calcification Wears glasses Diabetes Thyroid disease Rheumatoid arthritis Bladder disease Anemia Excessive bleeding Back pain Non-smoker CPAP (continuous positive airway pressure) dependence Leg cramps Hypertension History of colon polyps Chronic pancreatitis Lactose intolerance DJD (degenerative joint disease), lumbar Eosinophilic esophagitis Hypertriglyceridemia Bilateral cataracts Seasonal allergies Anemia Segmental and somatic dysfunction of lumbar region Segmental and somatic dysfunction of thoracic region Segmental and somatic dysfunction of cervical region Acute cholecystitis Obesity Hypertension Rheumatoid arthritis Surgical History History of pituitary surgery History of esophagogastroduodenosco py (EGD) ( 05/29/18) S/P colonoscopy ( 05/29/18) History of esophagogastroduodenosco py (EGD) Hx of tonsillectomy Hx of colonoscopy Hx of cholecystectomy S/P cholecystectomy Family History Mother Cancer Hypertension Father Diabetes Prostate cancer Heart disease stent placed Social History household members: spouse current occupational status: employed current occupation: [employer] Smoking Status: Never smoker alcohol intake: never substance use type: does not use ROS Constitutional Constitutional: Reports systems reviewed and no addt'l complaints, except as documented Eyes Eyes: Reports systems reviewed and no addt'l complaints, except as documented ENT HEENT: Reports systems reviewed and no addt'l complaints, except as documented Cardiovascular Cardiovascular: Reports systems reviewed and no addt'l complaints, except as documented Respiratory/Chest Respiratory/Chest: Reports systems reviewed and no addt'l complaints, except as documented Gastrointestinal Gastrointestinal: Reports systems reviewed and no addt'l complaints, except as documented Genitourinary Genitourinary: Reports systems reviewed and no addt'l complaints, except as documented Musculoskeletal Musculoskeletal: Reports systems reviewed and no addt'l complaints, except as documented Integumentary Integumentary: Reports systems reviewed and no addt'l complaints, except as documented Neurologic Neurologic: Reports systems reviewed and no addt'l complaints, except as documented Psychiatric Psychiatric: Reports systems reviewed and no addt'l complaints, except as documented Endocrine Endocrinology: Reports systems reviewed and no addt'l complaints, except as documented Hematologic/Lymphatic Hematologic/Lymphatic: Reports systems reviewed and no addt'l complaints, except as documented Allergic/Immunologic Allergic/Immunologic: Reports systems reviewed and no addt'l complaints, except as documented Intake Vital Signs 07/26/24 16:07 12/05/24 13:55 Height 5 ft 6.5 in 5 ft 6.5 in Weight: 111.385 kg BMI 39.0 BP 166/80 H Blood Pressure Location Lt brachial Position Sitting Respiration 18 Pulse 65 Pulse Source Monitor Temp 98.4 F Temperature Source Temporal Artery Pulse Oximetry (%) 97 Oxygen Delivery Method room air Intake Is patient in pain?: No Allergies diltiazem (From Cardizem) Allergy (Unknown, Verified 12/05/24 14:05) PT UNSURE OF REACTION Milk Containing Products (Dairy) Adverse Reaction (Unknown, Verified 12/05/24 14:05) unknown Medications ???Medication ???Instructions ???Recorded ???Confirmed ???Type carvedilol 25 mg tablet 25 mg PO BID 12/22/15 12/05/24 His tory finasteride 5 mg tablet 5 mg PO DAILY 12/22/15 12/05/24 Hi story hydralazine 100 mg tablet 100 mg PO TID 12/22/15 12/05/24 Hi story lisinopril 40 mg tablet 40 mg PO DAILY 12/22/15 12/05/24 H istory multivitamin 1 tab PO DAILY 08/19/17 12/05/24 H istory hydrocortisone 2.5 % topical cream 1 applic topical BID PRN Skin 12/05/24 History (more content not included)... Normal [facility] Platelet countOrdered By: Shonna linton Renée on 12-05-2024 Platelets (Bld) [#/Vol] 251 10*3/uL 150-450 [facility] Potassium (Unsp spec) [Mass/ Vol]Ordered By: James Renée on 12-05-2024 Potassium [Moles/Vol] 3.9 mmol/L 3.3-5.1 [facility] Potassium measurement (mass/ volume)Ordered By: James Chinchilla on 12-05-2024 Potassium (Unsp spec) [Mass/Vol] 3.9 mmol/L 3.3-5.1 [facility] Protein Test strip Ql (U)Ord ered By: James Chinchilla on 12-05-2024 Protein Ql (U) 15 mg/dl High Negative [facility] RBC Auto (Bld) [#/Vol]Ordere d By: James Chinchilla on 12-05-2024 RBC (Bld) [#/Vol] 4.19 10*6/uL Low 4.6-6.2 [facility] Retic Panelon 12-05-2024 IM RET FRACTION 17.40 High 3.00-15.90 [facility] Comment on above: Performed By: #### L 400.0001, L500.4050, L101.9900, L3100.1850, L100.9950, L504.2610, L503.0106, L503.6550, L3100.1350, L501.6710, L100.0100, L503.6030 #### [facility] [address] [place], [place], [id number] RET-HE 32.2 pg Normal 30-35 [facility] Comment on above: Performed By: #### L 400.0001, L500.4050, L101.9900, L3100.1850, L100.9950, L504.2610, L503.0106, L503.6550, L3100.1350, L501.6710, L100.0100, L503.6030 #### [facility] [address] [place], [address] Retic Count 2.32 High 0.5-1.5 [facility] Comment on above: Performed By: #### L 400.0001, L500.4050, L101.9900, L3100.1850, L100.9950, L504.2610, L503.0106, L503.6550, L3100.1350, L501.6710, L100.0100, L503.6030 #### [facility] [address] [place], [place], [id number] Reticulocyte hemoglobin equi valent (RET-He) measurementOrdered By: James Chinchilla on 12-05-2024 Hemoglobin (Reticulocytes) [Entitic mass] 32.2 pg 30-35 [facility] Reticulocytes Auto (Bld) [#/ Vol]Ordered By: James Chinchilla on 12-05-2024 Reticulocyte Count 2.32 % High 0.5-1.5 [facility] Reticulocytes/100 RBC (Bld) 2.32 % High 0.5-1.5 [facility] Serum creatinine measurement (mass/volume)Ordered By: James Chinchilla on 12-05-2024 Creatinine [Mass/Vol] 0.99 mg/dL 0.70-1.20 [facility] Serum globulin measurementOr dered By: James Chinchilla on 12-05-2024 Globulin (S) [Mass/Vol] 2.6 g/dL 2.2-4.2 [facility] Serum glucose measurement (m ass/volume)Ordered By: James Chinchilla on 12-05-2024 Glucose [Mass/Vol] 116 mg/dL High 70-99 [facility] Serum or plasma C reactive p rotein measurement (mass/volume)Ordered By: James Chinchilla on 12-05-2024 CRP [Mass/Vol] mg/L 0.0-3.0 [facility] Serum or plasma alanine mims otransferase (ALT) measurementOrdered By: James Chinchilla on 12-05-2024 ALT [Catalytic activity/Vol] 42 U/L <47 [facility] Serum or plasma albumin brenda urement (mass/volume)Ordered By: James Chinchilla on 12-05-2024 Albumin [Mass/Vol] 5.0 g/dL High 3.4-4.8 [facility] Serum or plasma albumin/glob ulin mass ratioOrdered By: James Chinchilla on 12-05-2024 Albumin/Globulin [Mass ratio] 1.9 {ratio} 0.9-2.4 [facility] Serum or plasma alkaline leighann sphatase measurementOrdered By: James Chinchilla on 12-05-2024 ALP [Catalytic activity/Vol] 64 U/L 40-129 [facility] Serum or plasma calcium brenda urement (mass/volume)Ordered By: James Chinchilla on 12-05-2024 Calcium [Mass/Vol] 9.5 mg/dL 7.6-11.0 [facility] Serum or plasma erythropoiet in (EPO) measurement (units/volume)Ordered By: James Chinchilla on 12-05-2024 Erythropoietin (EPO) Qn 23.3 mIU/mL High 2.6-18.5 [facility] Comment on above: [employer] DxI 800 Immunoassay SystemValues obtained with different assay methods or kits cannotbe used interchangeably. Results cannot be interpreted asabsolute evidence of the presence or absence of malignantdisease. Serum or plasma ferritin ella surement (mass/volume)Ordered By: James Chinchilla on 12-05-2024 Ferritin [Mass/Vol] 113 ng/mL 37-417 [facility] Serum or plasma iron saturat ion measurement (mass fraction)Ordered By: James Chinchilla on 12-05-2024 Iron saturation [Mass fraction] 18.6 % 9-55 [facility] Comment on above: Previous reported re sult: 19.0 %Edited by: EARL on 12/05/24:1606 AMENDED REPORT 12/05/24 1606 IRON SATURATION previously reported as: 19.0 % Serum or plasma urea nitroge n measurement (mass/volume)Ordered By: James Chinchilla on 12-05-2024 Urea nitrogen [Mass/Vol] 18 mg/dL 4-19 [facility] Sodium levelOrdered By: Eze Chinchilla on 12-05-2024 Sodium [Moles/Vol] 138 mmol/L 133-145 [facility] Squamous epithelial cells de tection in urine sediment by light microscopyOrdered By: James Chinchilla on 12-05-2024 Epithelial cells.squamous LM Ql (Urine sed) 0 SEEN /hpf 0-5 [facility] Total proteinOrdered By: Sha Chinchilla on 12-05-2024 Protein [Mass/Vol] 7.5 g/dL 5.9-8.4 [facility] Urinalysis, Completeon 12-05 BACTERIA 0 SEEN Normal None Seen [facility] Comment on above: Order Comment: ARABELLA CTOR TO SPECIFY Performed By: #### L 400.0001, L500.4050, L101.9900, L3100.1850, L100.9950, L504.2610, L503.0106, L503.6550, L3100.1350, L501.6710, L100.0100, L503.6030 #### [facility] [address] [place], [place], [id number] EPI,SQUAMOUS 0 SEEN Normal 0-5 [facility] Comment on above: Order Comment: ARABELLA CTOR TO SPECIFY Performed By: #### L 400.0001, L500.4050, L101.9900, L3100.1850, L100.9950, L504.2610, L503.0106, L503.6550, L3100.1350, L501.6710, L100.0100, L503.6030 #### [facility] [address] [place], [place], [id number] Mucus Ql (Urine sed) 0 SEEN Normal [facility] Comment on above: Order Comment: ARABELLA CTOR TO SPECIFY Performed By: #### L 400.0001, L500.4050, L101.9900, L3100.1850, L100.9950, L504.2610, L503.0106, L503.6550, L3100.1350, L501.6710, L100.0100, L503.6030 #### [facility] [address] [place], [place], [id number] RBC 0 SEEN Normal 0-5 [facility] Comment on above: Order Comment: ARABELLA CTOR TO SPECIFY Performed By: #### L 400.0001, L500.4050, L101.9900, L3100.1850, L100.9950, L504.2610, L503.0106, L503.6550, L3100.1350, L501.6710, L100.0100, L503.6030 #### [facility] [address] [place], [place], [id number] WBC 0 SEEN Normal 0-5 [facility] Comment on above: Order Comment: ARABELLA CTOR TO SPECIFY Performed By: #### L 400.0001, L500.4050, L101.9900, L3100.1850, L100.9950, L504.2610, L503.0106, L503.6550, L3100.1350, L501.6710, L100.0100, L503.6030 #### [facility] [address] [place], [place], [id number] Urine blood detectionOrdered By: James Chinchilla on 12-05-2024 Urine Occult Blood Negative Negative [facility] Urine clarityOrdered By: Sha Chinchilla on 12-05-2024 Clarity (U) Clear Clear [facility] Urine color determinationOrd ered By: James Chinchilla on 12-05-2024 Color (U) Yellow Yellow [facility] Urine glucose detectionOrder ed By: James Chinchilla on 12-05-2024 Glucose Ql (U) Normal mg/dl Normal [facility] Urine leukocyte esterase det ection by dipstickOrdered By: James Chinchilla on 12-05-2024 Leukocyte esterase Test strip Ql (U) Negative Negative [facility] Urine pHOrdered By: James herman on 12-05-2024 pH (U) 7.0 [pH] 5.0 - 8.0 [facility] Urine sediment bacteria coun t by microscopy (number/high power field)Ordered By: James Chinchilla on 12-05-2024 Bacteria LM.HPF (Urine sed) [#/Area] 0 /[HPF] None Seen [facility] Urine specific gravity measu rementOrdered By: Jmaes Chinchilla on 12-05-2024 Specific gravity (U) [Rel density] 1.005 1.002-1.03 0 [facility] Urine urobilinogen measureme ntOrdered By: James Chinchilla on 12-05-2024 Urobilinogen Ql (U) Normal mg/dl Normal [facility] Urobilinogen Ql (U)Ordered B y: James Chinchilla on 12-05-2024 Urine Urobilinogen Normal mg/dl Normal [facility] Vitamin B12 ser/plasOrdered By: James Chinchilla on 12-05-2024 Cobalamin (Vitamin B12) [Mass/Vol] 609 pg/mL 180-914 [facility] White blood cell (WBC) count Ordered By: James Chinchilla on 12-05-2024 WBC (Bld) [#/Vol] 6.7 10*3/uL 4.4-11.0 [facility] White blood cell countOrdere d By: James Chinchilla on 12-05-2024 Urine WBC 0 SEEN /hpf 0-5 [facility] White blood cell count 0 SEEN /hpf 0-5 [facility] GFR/1.73 sq M.predicted bina g non-blacks MDRD (S/P/Bld) [Vol rate/Area]on 11-17-2024 Estimated GFR (MDRD) Non-Af Amer 79 >60 [facility] Comment on above: mL/min/1.73m2 CKD-EP I Creatinine Equation (2020) Glomerular filtration rate ( GFR) estimation/1.73 sq m using serum, plasma, or whole bon 11-17-2024 GFR/1.73 sq M.predicted among non-blacks MDRD (S/P/Bld) [Vol rate/Area] 79 mL/min/{1.73_m2} >60 [facility] Comment on above: mL/min/1.73m2 CKD-EP I Creatinine Equation (2020) Serum Creatinine AND GFRon 0 11-17-2024 Creatinine [Mass/Vol] 1.05 mg/dL Normal 0.70-1.20 [facility] Comment on above: Performed By: #### L 501.1105 ####[facility] [id number] [place], [place], [id number] GFR/1.73 sq M.predicted among non-blacks MDRD (S/P/Bld) [Vol rate/Area] 79 mL/min/{1.73_m2} Normal >60 [facility] Comment on above: Result Comment: mL/m in/1.73m2 CKD-EPI Creatinine Equation (2020) Performed By: #### L 501.1105 ####[facility] [address] [place], [place], [address] Serum creatinine measurement (mass/volume)on 11-17-2024 Creatinine [Mass/Vol] 1.05 mg/dL 0.70-1.20 [facility] 36on 11-16-2024 36 Referral and records faxed [facility] 36 To Sharda to follow up [facility] 36 Name of caller: Dereck santana Contact phone number: [phone] Relationship to Patient: [facility] Care Provider: Dr. Amado Practice: [facility] Chief Complaint/Reason for Call: Indigo states that she received a call from the patient's stating the patient was referred to them with diagnosis of anemia. Indigo states they have not received a referral yet. Indigo states to please fax a referral to them at fax [phone] and please include all office notes, related labs, and blood work. Please send referral. Best time of day caller can be reached: any Patient advised that office/PCP has 24-48 business hours to return their call: N/A [facility] 29on 11-15-2024 29 Addended by: WILLIAM SQUIRES on: 11/15/2024 12:06 PM Modules accepted: Orders [facility] 29 Addended by: CLAUDIA SAAVEDAR on: 11/15/2024 08:43 AM Modules accepted: Orders [facility] Chiropractic Reporton 2024 Chiropractic Report [facility] Chiropractic [facility] [place], [place] [address] OFFICE VISIT Date of Service: 11/15/24 MR#: [id number] Acct: [id number] Name: MYRANDA OLEA Rep #: [id number] : 1960 Provider: MJ Steele Do ssi Age/Sex: 64/M Location: [facility] Status: Signed Intake Vital Signs 07/26/24 16:07 Height 5 ft 6.5 in Intake Visit Reasons: Back Pain Chief Complaint: neck and low Back pain Is patient in pain?: Yes (neck and low back) Pain scale (1-10): 7 Allergies diltiazem (From Cardizem) Allergy (Unknown, Verified 11/15/24 17:04) PT UNSURE OF REACTION Medications ???Medication ???Instructions ???Recorded ???Confirmed ???Type carvedilol 25 mg tablet 25 mg PO BID 12/22/15 11/15/24 His tory finasteride 5 mg tablet 5 mg PO DAILY 12/22/15 11/15/24 Hi story hydralazine 100 mg tablet 100 mg PO TID 12/22/15 11/15/24 Hi story lisinopril 40 mg tablet 40 mg PO DAILY 12/22/15 11/15/24 H istory multivitamin 1 tab PO DAILY 08/19/17 11/15/24 H istory hydrocortisone 2.5 % topical cream 1 applic topical BID PRN Skin 11/15/24 History Cleansing ketoconazole 2 % shampoo 1 applic topical QODAY 05/25/21 History oxybutynin chloride 10 mg 10 mg PO DAILY 05/25/21 11/15/24 H istory tablet,extended release 24 hr cholecalciferol (vitamin D3) 25 25 mcg PO DAILY 12/10/22 11/15/24 History mcg (1,000 unit) capsule sulfasalazine 500 mg 1,000 mg PO BID 12/15/23 11/15/24 History tablet,delayed release Trulicity 1.5 mg/0.5 mL 1.5 mg (0.5 mL) subcut QWEEK #2 mL 03/29/24 11/15/24 Rx subcutaneous pen injector (dulaglutide) Held on 06/14/24. Instructions: FOR COLONOSCOPY 06/18/2024 atorvastatin 20 mg tablet 20 mg PO QPM #90 tabs 03/29/24 Rx clonidine HCl 0.3 mg tablet 0.3 mg PO TID 03/29/24 11/15/24 Hi story levothyroxine 75 mcg tablet 75 mcg PO DAILY 06/14/24 11/15/24 History levothyroxine 75 mcg tablet 150 mcg PO CLEARY 06/14/24 11/15/24 Hi story (Euthyrox) blood sugar diagnostic (Reg[employer] BiomaterialsTouch #100 ea 07/26/24 11/15/24 Rx Verio test strips) blood-glucose meter (OneTouch #1 ea 07/26/24 11/15/24 Rx Verio Reflect Meter) hydrocortisone 10 mg tablet 10 mg PO TID #270 tabs 07/27/24 Rx hydrocortisone 5 mg tablet 5 mg PO TID #90 tabs 08/01/2411/03 Rx lancets 33 gauge (OneTouch Delica #100 ea 10/15/24 11/15/24 Rx Plus Lancet) Have you fallen in the past year?: No PFSH Medical History Mixed hyperlipidemia Secondary adrenal insufficiency Uncontrolled hypertension Acute sinusitis, unspecified Diabetes Secondary hypothyroidism Pancreatic calcification Wears glasses Diabetes Thyroid disease Rheumatoid arthritis Bladder disease Anemia Excessive bleeding Back pain Non-smoker CPAP (continuous positive airway pressure) dependence Leg cramps Hypertension History of colon polyps Chronic pancreatitis Lactose intolerance DJD (degenerative joint disease), lumbar Eosinophilic esophagitis Hypertriglyceridemia Bilateral cataracts Seasonal allergies Anemia Segmental and somatic dysfunction of lumbar region Segmental and somatic dysfunction of thoracic region Segmental and somatic dysfunction of cervical region Acute cholecystitis Obesity Hypertension Rheumatoid arthritis Surgical History History of pituitary surgery History of esophagogastroduodenosco py (EGD) ( 05/29/18) S/P colonoscopy ( 05/29/18) History of esophagogastroduodenosco py (EGD) Hx of tonsillectomy Hx of colonoscopy Hx of cholecystectomy S/P cholecystectomy Family History Mother Cancer Hypertension Father Diabetes Social History household members: spouse current occupational status: employed current occupation: [employer] Smoking Status: Never smoker substance use type: does not use HPI Back Pain Chief Complaint: Neck and Low Back Pain Visit Number: 3 Details: MYRANDA OLEA is a 64 year old male here to follow up on ongoing neck and low back discomfort. Pt continues to complains of neck pain and stiffness but denies recent headaches today. He also states his low back is a painful ache equal bilaterally across. He rates his overall pain 7/10 today. Pt. denies new injury, numbness, tingling or radiculopathy at this time. Graeme reports chiropractic adjustments are effective in relieving his discomfort but it gradually returns. Location: Neck, low back Duration: Frequent Aggravating or associated factors: Bending, reaching, cold weather Relieving factors: Chiro Pain Quality: aching, dull and cramping Exa (more content not included)... [facility] 11-13-2024 Patient read his [employer] message [facility] 11-12-2024 Spoke with Adela and let her know we have received the labs they are on Dr Amado's desk to review. [facility] 11-11-2024 36 Report patient that I received all the lab work on his workup for his anemia. In summary I think he has anemia of chronic disease specifically his inflammatory arthritis. He has had a waxing and waning of his blood count for at least 14 years. Recent labs shows no evidence of iron or B12 deficiency, thyroid issues, or chronic renal or liver issues that can contribute to anemia. There is no signs of abnormal bone marrow proteins like multiple myeloma. To reassure his physician surgeon and himself I would recommend an opinion from staff physician. Refer to [place] Dr. Atkinson for another opinion. Of note because he is not iron deficient I do not think he is bleeding anywhere but for completeness sake he should consider getting an upper endoscopy again. In my previous notes Dr. Aragon recommended him to have 1 in follow-up after getting an EGD in 2018. But hematology and rheumatology might recommend that as well. Send a copy of this lab to his talent acquisition specialist Dr. Zuniga who just did his colonoscopy last fall for him to consider doing an EGD. At this time I have no recommendations on his meds. [facility] 11-09-2024 36 Name of caller: Bonita vargas Contact phone number: [phone] Relationship to Patient: spouse/SO Provider: Dr. Amado Practice: [facility] Chief Complaint/Reason for Call: Adela is calling back to see if the office received a fax regarding the patients lab results from [facility]. Please advise. Best time of day caller can be reached: Any Patient advised that office/PCP has 24-48 business hours to return their call: No Normal [facility] 36on 11-08-2024 36 Name of caller: Bonita vargas Contact phone number: [phone] Relationship to Patient: patient Provider: Dr Amado Practice: [facility] Chief Complaint/Reason for Call: Adela is calling to see if [facility] faxed over the recent lab results. Adela states okay to send a [employer] message to let her know that you have received them. Thank you Best time of day caller can be reached: any Patient advised that office/PCP has 24-48 business hours to return their call: No Normal [facility] Folates, RBCon 10-29-2024 Fol.,Hemolysate 492.0 ng/mL Normal Not Estab. [facility] Comment on above: Performed By: #### L 501.89939, L503.6030, L501.9520, L506.1000, L100.0100, L506.0400, L503.0105, L3100.1725, L503.6550, L3100.3450, L001.0705 ####[facility] [address] [place], [place], [id number] Folate, RBC 1390 ng/mL Normal >498 [facility] Comment on above: Result Comment: Perf ormed at: - [facility] [id number] Yoghurt Maker: Axel Cronin PhD, Phone: [phone] Performed By: #### L 501.98620, L503.6030, L501.9520, L506.1000, L100.0100, L506.0400, L503.0105, L3100.1725, L503.6550, L3100.3450, L001.0705 ####[facility] [address] [place], [address] Hematocrit (Bld) [Volume fraction] 35.4 % Low 37.5-51.0 [facility] Comment on above: Performed By: #### L 501.86267, L503.6030, L501.9520, L506.1000, L100.0100, L506.0400, L503.0105, L3100.1725, L503.6550, L3100.3450, L001.0705 ####[facility] [address] [place], [address] Protein Electroph, Son 10-29 Albumin [Mass/Vol] 4.1 g/dL Normal 2.9-4.4 [facility] Comment on above: Performed By: #### L 501.72662, L503.6030, L501.9520, L506.1000, L100.0100, L506.0400, L503.0105, L3100.1725, L503.6550, L3100.3450, L001.0705 ####[facility] [address] [place], [address] Albumin/Globulin [Mass ratio] 1.7 {ratio} Normal 0.7-1.7 [facility] Comment on above: Performed By: #### L 501.96917, L503.6030, L501.9520, L506.1000, L100.0100, L506.0400, L503.0105, L3100.1725, L503.6550, L3100.3450, L001.0705 ####[facility] [address] [place], [address] ALPHA-1 GLOBUL 0.1 g/dL Normal 0.0-0.4 [facility] Comment on above: Performed By: #### L 501.98715, L503.6030, L501.9520, L506.1000, L100.0100, L506.0400, L503.0105, L3100.1725, L503.6550, L3100.3450, L001.0705 ####[facility] [address] [place], [address] ALPHA-2 GLOBUL 0.5 g/dL Normal 0.4-1.0 [facility] Comment on above: Performed By: #### L 501.58124, L503.6030, L501.9520, L506.1000, L100.0100, L506.0400, L503.0105, L3100.1725, L503.6550, L3100.3450, L001.0705 ####[facility] [address] [place], [address] BETA GLOBULIN 0.8 g/dL Normal 0.7-1.3 [facility] Comment on above: Performed By: #### L 501.71736, L503.6030, L501.9520, L506.1000, L100.0100, L506.0400, L503.0105, L3100.1725, L503.6550, L3100.3450, L001.0705 ####[facility] [address] [place], [address] GAMMA GLOBULIN 1.0 g/dL Normal 0.4-1.8 [facility] Comment on above: Performed By: #### L 501.81391, L503.6030, L501.9520, L506.1000, L100.0100, L506.0400, L503.0105, L3100.1725, L503.6550, L3100.3450, L001.0705 ####[facility] [address] [place], [address] Globulin (S) [Mass/Vol] 2.4 g/dL Normal 2.2-3.9 [facility] Comment on above: Performed By: #### L 501.38059, L503.6030, L501.9520, L506.1000, L100.0100, L506.0400, L503.0105, L3100.1725, L503.6550, L3100.3450, L001.0705 ####[facility] [address] [place], [place], [phone](363) INTERPRETATION Comment Normal . [facility] Comment on above: Result Comment: Prot ein electrophoresis scan will follow via computer, mail, or drum sander setter delivery. Performed By: #### L 501.45449, L503.6030, L501.9520, L506.1000, L100.0100, L506.0400, L503.0105, L3100.1725, L503.6550, L3100.3450, L001.0705 ####[facility] [address] [place], [place], [id number] M-SPIKE Not Observed Normal Not Observed [facility] Comment on above: Performed By: #### L 501.59266, L503.6030, L501.9520, L506.1000, L100.0100, L506.0400, L503.0105, L3100.1725, L503.6550, L3100.3450, L001.0705 ####[facility] [address] [place], [place], [id number] NOTE: Comment Normal . [facility] Comment on above: Result Comment: The SPE pattern appears unremarkable. Evidence of monoclonal protein is not apparent. Performed By: #### L 501.72932, L503.6030, L501.9520, L506.1000, L100.0100, L506.0400, L503.0105, L3100.1725, L503.6550, L3100.3450, L001.0705 ####[facility] [address] [place], [place], [id number] Protein [Mass/Vol] 6.5 g/dL Normal 6.0-8.5 [facility] Comment on above: Performed By: #### L 501.65880, L503.6030, L501.9520, L506.1000, L100.0100, L506.0400, L503.0105, L3100.1725, L503.6550, L3100.3450, L001.0705 ####[facility] [address] [place], [place], [phone](379) Vitamin B12on 10-29-2024 Cobalamin (Vitamin B12) [Mass/Vol] 493 pg/mL Normal 211-911 [facility] Comment on above: Performed By: #### L 501.00558, L503.6030, L501.9520, L506.1000, L100.0100, L506.0400, L503.0105, L3100.1725, L503.6550, L3100.3450, L001.0705 ####[facility] [address] [place], [place], [id number] Vitamin D,25 Hydroxyon 10-29 Vitamin D 25-OH 42.8 ng/mL Normal [facility] Comment on above: Result Comment: Svetlana min D 25(OH) Status Range Deficiency <20 ng/mL (50nmol/L) Insufficiency 20 - 30 ng/mL (50 - 75 nmol/L) Sufficiency 30 - 100 ng/mL (75 - 250 nmol/L) Toxicity >100 ng/mL (>250 nmol/L) Performed By: #### L 501.03403, L503.6030, L501.9520, L506.1000, L100.0100, L506.0400, L503.0105, L3100.1725, L503.6550, L3100.3450, L001.0705 ####[facility] [address] [place], [place], [id number] 18-RB-Ikfrfdk DOrdered By: Desean Amado on 10-27-2024 Vitamin D 25-Hydroxy 42.8 ng/mL [facility] Comment on above: Vitamin D 25(OH) Sta tus Range Deficiency <20 ng/mL (50nmol/L) Insufficiency 20 - 30 ng/mL (50 - 75 nmol/L) Sufficiency 30 - 100 ng/mL (75 - 250 nmol/L) Toxicity >100 ng/mL (>250 nmol/L) Absolute lymphocyte countOrd ered By: William Amado on 10-27-2024 Lymphocytes Auto (Unsp spec) [#/Vol] 1.92 10*3/uL 0.83-4.51 [facility] Absolute neutrophil countOrd ered By: William Amado on 10-27-2024 Neutrophils (Bld) [#/Vol] 2.3 10*3/uL 2.0-7.7 [facility] Addendum DocumentOrdered By: William Amado on 10-27-2024 Protein Electrophoresis Note Comment . [facility] Comment on above: The SPE pattern appe ars unremarkable. Evidence ofmonoclonal protein is not apparent. Albumin Elph [Mass/Vol]Order ed By: William Amado on 10-27-2024 Albumin [Mass/Vol] 4.1 g/dL 2.9-4.4 [facility] Albumin to globulin ratioOrd ered By: William Amado on 10-27-2024 Albumin/Globulin [Mass ratio] 1.4 {ratio} 0.9-2.4 [facility] Albumin/Globulin Elph [Mass ratio]Ordered By: William Amado on 10-27-2024 Albumin/Globulin (PEP) 1.7 0.7-1.7 [facility] Mgfxk-3-ykqhifqx measurement by protein electrophoresisOrdered By: William Amado on 10-27-2024 Qbdzh-1-Itlzcgupy 0.1 g/dL 0.0-0.4 [facility] Lvpre-7-pwlozcdi measurement by protein electrophoresisOrdered By: William Amado on 10-27-2024 Skxjg-9-Iqwczkcbu 0.5 g/dL 0.4-1.0 [facility] Automated lymphocyte count a s percentage of total leukocytesOrdered By: William Amado on 10-27-2024 Lymphocytes/100 WBC Auto (Unsp spec) 37.5 % 19-41 [facility] Basophil percentageOrdered B y: William Amado on 10-27-2024 Basophils/100 WBC (Bld) 2.1 % High 0-1 [facility] Beta globulin Elph [Mass/Vol ]Ordered By: William Amado on 10-27-2024 Beta Globulins 0.8 g/dL 0.7-1.3 [facility] CBC W/Diff, Automatedon 10-07 Absolute Lymph 1.92 X10 3/uL Normal 0.83-4.51 [facility] Comment on above: Performed By: #### L 501.25997, L503.6030, L501.9520, L506.1000, L100.0100, L506.0400, L503.0105, L3100.1725, L503.6550, L3100.3450, L001.0705 ####[facility] [address] [place], [address] Absolute Neut 2.3 X10 3/uL Normal 2.0-7.7 [facility] Comment on above: Performed By: #### L 501.94595, L503.6030, L501.9520, L506.1000, L100.0100, L506.0400, L503.0105, L3100.1725, L503.6550, L3100.3450, L001.0705 ####[facility] [address] [place], [address] Basophils/100 WBC (Bld) 2.1 % High 0-1 [facility] Comment on above: Performed By: #### L 501.70455, L503.6030, L501.9520, L506.1000, L100.0100, L506.0400, L503.0105, L3100.1725, L503.6550, L3100.3450, L001.0705 ####[facility] [address] [place], [address] Eosinophils/100 WBC (Bld) 3.5 % Normal 0-5 [facility] Comment on above: Performed By: #### L 501.34337, L503.6030, L501.9520, L506.1000, L100.0100, L506.0400, L503.0105, L3100.1725, L503.6550, L3100.3450, L001.0705 ####[facility] [address] [place], [place], [phone](124) Erythrocyte distribution width (RBC) [Ratio] 15.7 % High 11.6-14.6 [facility] Comment on above: Performed By: #### L 501.28949, L503.6030, L501.9520, L506.1000, L100.0100, L506.0400, L503.0105, L3100.1725, L503.6550, L3100.3450, L001.0705 ####[facility] [address] [place], [place], [phone](101) Hematocrit (Bld) [Volume fraction] 35.5 % Low 40-54 [facility] Comment on above: Performed By: #### L 501.57463, L503.6030, L501.9520, L506.1000, L100.0100, L506.0400, L503.0105, L3100.1725, L503.6550, L3100.3450, L001.0705 ####[facility] [address] [place], [place], [phone](096) Hemoglobin (Bld) [Mass/Vol] 11.5 g/dL Low 13.0-16.5 [facility] Comment on above: Performed By: #### L 501.27737, L503.6030, L501.9520, L506.1000, L100.0100, L506.0400, L503.0105, L3100.1725, L503.6550, L3100.3450, L001.0705 ####[facility] [address] [place], [place], [phone](364) IG% 1.400 High 0.0-0.9 [facility] Comment on above: Result Comment: IG% - Immature Granulocytes (promyelocytes, myelocytes and metamyelocytes) > 1% indicates that a LEFT SHIFT is Present. Performed By: #### L 501.94784, L503.6030, L501.9520, L506.1000, L100.0100, L506.0400, L503.0105, L3100.1725, L503.6550, L3100.3450, L001.0705 ####[facility] [address] [place], [address] Lymphocytes/100 WBC (Bld) 37.5 % Normal 19-41 [facility] Comment on above: Performed By: #### L 501.07438, L503.6030, L501.9520, L506.1000, L100.0100, L506.0400, L503.0105, L3100.1725, L503.6550, L3100.3450, L001.0705 ####[facility] [address] [place], [address] MCH (RBC) [Entitic mass] 29.0 pg Normal 27.0-32.0 [facility] Comment on above: Performed By: #### L 501.74678, L503.6030, L501.9520, L506.1000, L100.0100, L506.0400, L503.0105, L3100.1725, L503.6550, L3100.3450, L001.0705 ####[facility] [address] [place], [address] MCHC (RBC) [Mass/Vol] 32.4 g/dL Normal 32-36 [facility] Comment on above: Performed By: #### L 501.97812, L503.6030, L501.9520, L506.1000, L100.0100, L506.0400, L503.0105, L3100.1725, L503.6550, L3100.3450, L001.0705 ####[facility] [address] [place], [address] MCV (RBC) [Entitic vol] 89.4 fL Normal 80-94 [facility] Comment on above: Performed By: #### L 501.37849, L503.6030, L501.9520, L506.1000, L100.0100, L506.0400, L503.0105, L3100.1725, L503.6550, L3100.3450, L001.0705 ####[facility] [address] [place], [address] Monocytes/100 WBC (Bld) 10.9 % High 0-10 [facility] Comment on above: Performed By: #### L 501.40221, L503.6030, L501.9520, L506.1000, L100.0100, L506.0400, L503.0105, L3100.1725, L503.6550, L3100.3450, L001.0705 ####[facility] [address] [place], [address] Neutrophils/100 WBC (Bld) 44.6 % Low 47-70 [facility] Comment on above: Performed By: #### L 501.08041, L503.6030, L501.9520, L506.1000, L100.0100, L506.0400, L503.0105, L3100.1725, L503.6550, L3100.3450, L001.0705 ####[facility] [address] [place], [address] Nucleated RBC (Bld) [#/Vol] 0 10*3/uL Normal 0-5 [facility] Comment on above: Performed By: #### L 501.59394, L503.6030, L501.9520, L506.1000, L100.0100, L506.0400, L503.0105, L3100.1725, L503.6550, L3100.3450, L001.0705 ####[facility] [address] [place], [address] Platelet mean volume (Bld) [Entitic vol] 9.9 fL Normal 6.2-12.0 [facility] Comment on above: Performed By: #### L 501.65753, L503.6030, L501.9520, L506.1000, L100.0100, L506.0400, L503.0105, L3100.1725, L503.6550, L3100.3450, L001.0705 ####[facility] [address] [place], [address] Platelets (Bld) [#/Vol] 258 10*3/uL Normal 150-450 [facility] Comment on above: Performed By: #### L 501.70753, L503.6030, L501.9520, L506.1000, L100.0100, L506.0400, L503.0105, L3100.1725, L503.6550, L3100.3450, L001.0705 ####[facility] [address] [place], [address] RBC (Bld) [#/Vol] 3.97 10*6/uL Low 4.6-6.2 [facility] Comment on above: Performed By: #### L 501.02176, L503.6030, L501.9520, L506.1000, L100.0100, L506.0400, L503.0105, L3100.1725, L503.6550, L3100.3450, L001.0705 ####[facility] [address] [place], [address] RDW SD 51.5 fl High 35.1-43.9 [facility] Comment on above: Performed By: #### L 501.45483, L503.6030, L501.9520, L506.1000, L100.0100, L506.0400, L503.0105, L3100.1725, L503.6550, L3100.3450, L001.0705 ####[facility] [address] [place], [place], [address] WBC (Bld) [#/Vol] 5.1 10*3/uL Normal 4.4-11.0 [facility] Comment on above: Performed By: #### L 501.63593, L503.6030, L501.9520, L506.1000, L100.0100, L506.0400, L503.0105, L3100.1725, L503.6550, L3100.3450, L001.0705 ####[facility] [address] [place], [place], [id number] Direct serum free thyroxine (FT4) measurementOrdered By: William Amado on 10-27-2024 Free T4 [Mass/Vol] 0.99 ng/dL 0.76-1.46 [facility] Eosinophil percentageOrdered By: William Amado on 10-27-2024 Eosinophils/100 WBC (Bld) 3.5 % 0-5 [facility] Erythrocyte distribution wid th ratioOrdered By: William Amado on 10-27-2024 Erythrocyte distribution width (RBC) [Ratio] 15.7 % High 11.6-14.6 [facility] Erythrocyte distribution wid th standard deviationOrdered By: William Amado on 10-27-2024 Erythrocyte distribution width (RBC) [Entitic vol] 51.5 fL High 35.1-43.9 [facility] Erythrocyte distribution width (RBC) [Ratio] 51.5 fl High 35.1-43.9 [facility] Erythrocyte folate measureme ntOrdered By: William Amado on 10-27-2024 RBC Folate Hemolysate 492.0 ng/mL Not Estab. [facility] Red Blood Cell Folate 1390 ng/mL >498 [facility] Comment on above: Performed at: [address] [place], [place] [id number] Director: Axel Cronin PhD, Phone: [phone] Erythrocyte folate measureme nt with hematocritOrdered By: William Amado on 10-27-2024 Hematocrit (Bld) [Volume fraction] 35.4 % Low 37.5-51.0 [facility] Ferritinon 10-27-2024 Ferritin [Mass/Vol] 99 ng/mL Normal 26-388 [facility] Comment on above: Performed By: #### L 501.93384, L503.6030, L501.9520, L506.1000, L100.0100, L506.0400, L503.0105, L3100.1725, L503.6550, L3100.3450, L001.0705 ####[facility] [address] [place], [place], [id number] Ferritin measurementOrdered By: William Amado on 10-27-2024 Ferritin [Mass/Vol] 99 ng/mL 26-388 [facility] Free T3on 10-27-2024 Free T3 [Mass/Vol] 1.7 pg/mL Low 2.18-3.98 [facility] Comment on above: Performed By: #### L 501.40400, L503.6030, L501.9520, L506.1000, L100.0100, L506.0400, L503.0105, L3100.1725, L503.6550, L3100.3450, L001.0705 ####[facility] [id number] [place], [place], [id number] Free A6Vgmahqe By: William beckman on 10-27-2024 Free T3 [Mass/Vol] 1.7 pg/mL Low 2.18-3.98 [facility] Free Triiodothyronine (T3) pg/dL 1.7 pg/mL Low 2.18-3.98 [facility] Gamma globulin measurement b y protein electrophoresisOrdered By: William Amado on 10-27-2024 Gamma Globulins 1.0 g/dL 0.4-1.8 [facility] Globulin (S) [Mass/Vol]Order ed By: William Amado on 10-27-2024 Globulin (PEP) 2.4 g/dL 2.2-3.9 [facility] Hematocrit Auto (Bld) [Volum e fraction]Ordered By: William Amado on 10-27-2024 Hematocrit (Bld) [Volume fraction] 35.5 % Low 40-54 [facility] Hemoglobin measurementOrdere d By: William Amado on 10-27-2024 Hemoglobin (Bld) [Mass/Vol] 11.5 g/dL Low 13.0-16.5 [facility] Immature granulocytes/100 WB C Auto (Bld)Ordered By: William Amado on 10-27-2024 Immature granulocytes/100 WBC (Bld) 1.400 % High 0.0-0.9 [facility] Comment on above: IG% - Immature Granu locytes (promyelocytes, myelocytes and metamyelocytes) > 1% indicates that a LEFT SHIFT is Present. Iron (Unsp spec) [Mass/Mass] Ordered By: William Amado on 10-27-2024 Iron [Mass/Vol] 83 ug/dL 65-175 [facility] Iron measurement (mass/mass) Ordered By: William Amado on 10-27-2024 Iron (Unsp spec) [Mass/Mass] 83 ug/dL 65-175 [facility] Iron saturation [Mass fracti on]Ordered By: William Amado on 10-27-2024 Iron Saturation 28.5 % 15.0-55.0 [facility] Iron+Iron Binding Capacityon 10-27-2024 Iron [Mass/Vol] 83 ug/dL Normal 65-175 [facility] Comment on above: Performed By: #### L 501.71606, L503.6030, L501.9520, L506.1000, L100.0100, L506.0400, L503.0105, L3100.1725, L503.6550, L3100.3450, L001.0705 ####[facility] [id number] [place], [place], [id number] IRON SATURATION 28.5 Normal 15.0-55.0 [facility] Comment on above: Performed By: #### L 501.92685, L503.6030, L501.9520, L506.1000, L100.0100, L506.0400, L503.0105, L3100.1725, L503.6550, L3100.3450, L001.0705 ####[facility] [address] [place], [place], [address] TIBC 291 ug/dL Normal 250-450 [facility] Comment on above: Performed By: #### L 501.31823, L503.6030, L501.9520, L506.1000, L100.0100, L506.0400, L503.0105, L3100.1725, L503.6550, L3100.3450, L001.0705 ####[facility] [address] [place], [place], [id number] Lymphocytes Auto (Unsp spec) [#/Vol]Ordered By: William Amado on 10-27-2024 Lymphocytes (Bld) [#/Vol] 1.92 10*3/uL 0.83-4.51 [facility] Lymphocytes/100 WBC Auto (Un sp spec)Ordered By: William Amado on 10-27-2024 Lymphocytes/100 WBC (Bld) 37.5 % 19-41 [facility] MCV (mean corpuscular volume ) determinationOrdered By: William Amado on 10-27-2024 MCV (RBC) [Entitic vol] 89.4 fL 80-94 [facility] Mean corpuscular hemoglobin (MCH) determinationOrdered By: William Amado on 10-27-2024 MCH (RBC) [Entitic mass] 29.0 pg 27.0-32.0 [facility] Mean corpuscular hemoglobin concentration (MCHC) determinationOrdered By: William Amado on 10-27-2024 MCHC (RBC) [Mass/Vol] 32.4 g/dL 32-36 [facility] Mean platelet volume determi nationOrdered By: William Amado on 10-27-2024 Platelet mean volume (Bld) [Entitic vol] 9.9 fL 6.2-12.0 [facility] Monocyte percentageOrdered B y: William Arangored on 10-27-2024 Monocytes/100 WBC (Bld) 10.9 % High 0-10 [facility] Neutrophil percentageOrdered By: William Aneudy on 10-27-2024 Neutrophils/100 WBC (Bld) 44.6 % Low 47-70 [facility] No Panel InformationOrdered By: William Aneudy on 10-27-2024 Addendum Document Comment . [facility] Comment on above: The SPE pattern appe ars unremarkable. Evidence ofmonoclonal protein is not apparent. Nucleated red blood cell per centageOrdered By: William Aneudy on 10-27-2024 Nucleated RBC/100 WBC (Bld) [Ratio] 0 % 0-5 [facility] Platelet countOrdered By: Phong Amado on 10-27-2024 Platelets (Bld) [#/Vol] 258 10*3/uL 150-450 [facility] Protein Fractions Elph [Inte rp]Ordered By: William Amado on 10-27-2024 Protein Electrophoresis Interpret Comment . [facility] Comment on above: Protein electrophore sis scan will follow via computer,mail, or drum sander setter delivery. Protein Fractions [Interp] Comment . [facility] Comment on above: Protein electrophore sis scan will follow via computer,mail, or drum sander setter delivery. Protein, Totalon 10-27-2024 Albumin/Globulin [Mass ratio] 1.4 {ratio} Normal 0.9-2.4 [facility] Comment on above: Performed By: #### L 501.31348, L503.6030, L501.9520, L506.1000, L100.0100, L506.0400, L503.0105, L3100.1725, L503.6550, L3100.3450, L001.0705 ####[facility] [id number] [place], [address] Globulin (S) [Mass/Vol] 2.9 g/dL Normal 2.2-4.2 [facility] Comment on above: Performed By: #### L 501.35469, L503.6030, L501.9520, L506.1000, L100.0100, L506.0400, L503.0105, L3100.1725, L503.6550, L3100.3450, L001.0705 ####[facility] [address] [place], [address] T PROT 6.9 g/dL Normal 6.4-8.2 [facility] Comment on above: Performed By: #### L 501.98990, L503.6030, L501.9520, L506.1000, L100.0100, L506.0400, L503.0105, L3100.1725, L503.6550, L3100.3450, L001.0705 ####[facility] [address] [place], [address] Protein.monoclonal Elph [Mas s/Vol]Ordered By: William Amado on 10-27-2024 Protein Electrophoresis M-Woody Not Observed g/dL Not Observed [facility] RBC Auto (Bld) [#/Vol]Ordere d By: William Amado on 10-27-2024 RBC (Bld) [#/Vol] 3.97 10*6/uL Low 4.6-6.2 [facility] Serum albumin to globulin ra lisa by protein electrophoresisOrdered By: William Amado on 10-27-2024 Albumin/Globulin Elph [Mass ratio] 1.7 0.7-1.7 [facility] Serum globulin measurementOr dered By: William Amado on 10-27-2024 Globulin (S) [Mass/Vol] 2.9 g/dL 2.2-4.2 [facility] Serum globulin measurement ( mass/volume)Ordered By: William Amado on 10-27-2024 Globulin (S) [Mass/Vol] 2.4 g/dL 2.2-3.9 [facility] Serum or plasma beta globuli n measurement by electrophoresis (mass/volume)Ordered By: William Amado on 10-27-2024 Beta globulin Elph [Mass/Vol] 0.8 g/dL 0.7-1.3 [facility] Serum or plasma iron saturat ion measurement (mass fraction)Ordered By: William Amado on 10-27-2024 Iron saturation [Mass fraction] 28.5 % 15.0-55.0 [facility] Serum or plasma protein brenda urement (mass/volume)Ordered By: William Amado on 10-27-2024 Protein [Mass/Vol] 6.5 g/dL 6.0-8.5 [facility] Serum or plasma protein mono clonal measurement by electrophoresis (mass/volume)Ordered By: William Amado on 10-27-2024 Protein.monoclonal Elph [Mass/Vol] Not Observed g/dL Not Observed [facility] Serum or plasma thyroid stim ulating hormone (TSH) measurement (units/volume)Ordered By: William Amado on 10-27-2024 TSH Qn 2.990 uIU/mL 0.358-3.74 0 [facility] T4 Free Directon 10-27-2024 T4 FREE DIRECT 0.99 ng/dL Normal 0.76-1.46 [facility] Comment on above: Performed By: #### L 501.59164, L503.6030, L501.9520, L506.1000, L100.0100, L506.0400, L503.0105, L3100.1725, L503.6550, L3100.3450, L001.0705 ####[facility] [address] [place], [address] TIBCOrdered By: William cooley on 10-27-2024 Total Iron Binding Capacity 291 ug/dL 250-450 [facility] TSH QnOrdered By: William connell on 10-27-2024 Thyroid Stimulating Hormone (TSH) 2.990 uIU/mL 0.358-3.74 0 [facility] Thyroid Stim Hormone (TSH)on 10-27-2024 TSH 2.990 uIU/mL Normal 0.358-3.74 0 [facility] Comment on above: Performed By: #### L 501.49329, L503.6030, L501.9520, L506.1000, L100.0100, L506.0400, L503.0105, L3100.1725, L503.6550, L3100.3450, L001.0705 ####[facility] [address] [place], [address] Total proteinOrdered By: Annalisa suarez Aneudy on 10-27-2024 Protein [Mass/Vol] 6.9 g/dL 6.4-8.2 [facility] Vitamin B12 measurementOrder ed By: William Amado on 10-27-2024 Cobalamin (Vitamin B12) [Mass/Vol] 493 pg/mL 211-911 [facility] White blood cell (WBC) count Ordered By: William Amado on 10-27-2024 WBC (Bld) [#/Vol] 5.1 10*3/uL 4.4-11.0 [facility] 36on 10-25-2024 36 Pt aware. Normal [facility] 36 faxed [facility] 36 Please fax the lab orders that were done today to [facility] where this patient wants to get his lab. Thank you confirm for me and the patient that has been done. [facility] Progress Noteon 10-25-2024 Progress Note [facility] - [address] [facility] [address] Dept: [phone] Dept Loc: [phone] Patient was identified and seen today via Telehealth by agreement and consent. I used the following Telehealth technology: Audio and video capabilities. Patient location: Patient Location: Home. This patient encounter is appropriate and reasonable under the circumstances: consultation . The patient has been advised of the potential risks and limitations of this mode of treatment (including but not limited to the absence of in-person examination) and has agreed to be treated in a remote fashion in spite of them. Any and all of the patient's/patient's family's questions on this issue have been answered and I have made no promises or guarantees to the patient. The patient has also been advised to contact this office for worsening conditions or problems, and seek emergency medical treatment and/or call 911 if the patient deems either necessary. The patient stated that they are currently in the state of [place]. If the patient is a minor, permission has been obtained by the parent or guardian for the patient to receive medical care at this visit. Assessment/Plan Diagnoses and all orders for this visit: Normochromic normocytic anemia (Primary) - Ferritin; Future - Protein, Total and Protein Electrophoresis - Vitamin B12; Future - Iron and TIBC; Future - Vitamin D Deficiency Screening (Vit D 25); Future - Folate RBC; Future - CBC auto differential; Future - T4, free; Future - T3, free; Future - TSH; Future - Ferritin - Vitamin B12 - Iron and TIBC - Vitamin D Deficiency Screening (Vit D 25) - Folate RBC - CBC auto differential - T4, free - T3, free - TSH Inflammatory arthritis Psoriatic arthritis (HCC) On the video certainly alert and oriented. No acute distress. No follow-ups on file. Might need hematology versus gastroenterology consultation. See above lab orders. Subjective Myranda Olea is a 64 y.o. who presents on the video for a remote visit. Chief complaint: No chief complaint on file. Consultation for anemia workup HPI Non-smoker with a history of autoimmune arthritis/psoriatic arthritis, glucose intolerance, pituitary adenoma, eosinophilic esophagitis and colonic polyps presents to discuss recurrent mild normochromic normocytic anemia recently found on his rheumatologic lab. Interview in my records it states the patient has had mild anemia as far back as 2010. At that time he underwent upper and lower endoscopy for workup that showed no substantial GI bleeding source. Since about 2014 he has had episodes where his hemoglobin drops in the 11/2-12 and half range. Presently is in the high 12 range. Appears to be normochromic and normocytic. And in the past he has had hemoglobins as low as 11. His past ferritin was normal and iron slightly low at 53 with low normal being 65. Normal percent saturation and TIBC. Has not had any B12 or serum protein electrophoresis levels drawn. He has no upper GI complaints. No PPI use. Has not had an upper endoscopy for 6 years. Recent colonoscopy in June showed some polyps and recommended recheck in 5 years. Of note he does state his talent acquisition specialist recommended vitamin D therapy to prevent polyps. He would like that level drawn. He denies dysphagia or heartburn. No abdominal pain. Bowels are regular. No melena or blood. No constipation diarrhea. He is not a vegetarian. Allergies Allergen Reactions Milk (Cow) Other reaction(s): GI Upset cough, diarrhea, scratchy throat Other reaction(s): GI Upset Diltiazem Other reaction(s): Other (See Comments) edema Other reaction(s): Unknown Milk-Related Compounds Other reaction(s): Other (See Comments) Lactose intolerant Other reaction(s): Diarrhea Other reaction(s): Diarrhea [] PMH, allergies, and social history reviewed and updated as appropriate [] Medication list reviewed/updated [] Allergies reviewed/updated [] Problem list reviewed/updated [] Patient requests medication refills, see below for orders. William Amado, DO 10/25/2024 12:56 PM [facility] 10-23-2024 36 Name of caller: Bonita vargas Contact phone number: [phone] Relationship to Patient: spouse/SO Provider: Dr. Amado Practice: [facility] Chief Complaint/Reason for Call: The patient received a message through his My Chart : per Dr. Amado This patient had this mild anemia for 14 years. Probably due to his inflammatory arthritis. However I acknowledge he recently had a colonoscopy that excluded some type of GI bleeding from below but he should make an appointment to discuss options for either doing an upper endoscopy to exclude a GI bleed from his esophagitis or consideration for referral to staff physician. He also needs some other lab work for his anemia. The patients would like a call back as to what they should do because they didn't understand the message. Please advise. Best time of day caller can be reached: Any Patient advised that office/PCP has 24-48 business hours to return their call: No [facility] 10-22-2024 36 Last OV:07/11/24 Scheduled:01/10/25 Called and spoke to . Stated the obstetrics gynecology md advised anemia work up to due trending results from [employer]: 07/06/24- 10.8 08/03/24- 12.3 09/15/24- 12.3 - 11.7 stated they feel this is from patients medication sulfaSALAzine 500mg [facility] 36 Name of caller: Bonita vargas Contact phone number: [phone] Relationship to Patient: spouse/SO Provider: Practice: [facility] Chief Complaint/Reason for Call: Patients calling and states the obstetrics gynecology md recommends an anemia work up. requesting the orders be sent to [facility]. Please advise. Best time of day caller can be reached: any Patient advised that office/PCP has 24-48 business hours to return their call: no Normal [facility] Chiropractic Reporton 2024 Chiropractic Report [facility] [address] [place] [address] OFFICE VISIT Date of Service: 10/18/24 MR#: [id number] Acct: [id number] Name: MYRANDA OLEA Rep #: [id number] : 1960 Provider: MJ Steele Do ssi Age/Sex: 64/M Location: [facility] Status: Signed Intake Vital Signs 07/26/24 16:07 Height 5 ft 6.5 in Intake Visit Reasons: Back Pain Chief Complaint: neck and low Back pain Allergies diltiazem (From Cardizem) Allergy (Unknown, Verified 10/18/24 17:40) PT UNSURE OF REACTION Medications ???Medication ???Instructions ???Recorded ???Confirmed ???Type carvedilol 25 mg tablet 25 mg PO BID 12/22/15 10/18/24 His tory finasteride 5 mg tablet 5 mg PO DAILY 12/22/15 10/18/24 Hi story hydralazine 100 mg tablet 100 mg PO TID 12/22/15 10/18/24 Hi story lisinopril 40 mg tablet 40 mg PO DAILY 12/22/15 10/18/24 H istory multivitamin 1 tab PO DAILY 08/19/17 10/18/24 H istory hydrocortisone 2.5 % topical cream 1 applic topical BID PRN Skin 10/18/24 History Cleansing ketoconazole 2 % shampoo 1 applic topical QODAY 05/25/21 History oxybutynin chloride 10 mg 10 mg PO DAILY 05/25/21 10/18/24 H istory tablet,extended release 24 hr cholecalciferol (vitamin D3) 25 25 mcg PO DAILY 12/10/22 10/18/24 History mcg (1,000 unit) capsule sulfasalazine 500 mg 1,000 mg PO BID 12/15/23 10/18/24 History tablet,delayed release Trulicity 1.5 mg/0.5 mL 1.5 mg (0.5 mL) subcut QWEEK #2 mL 03/29/24 10/18/24 Rx subcutaneous pen injector (dulaglutide) Held on 06/14/24. Instructions: FOR COLONOSCOPY 06/18/2024 atorvastatin 20 mg tablet 20 mg PO QPM #90 tabs 03/29/24 Rx clonidine HCl 0.3 mg tablet 0.3 mg PO TID 03/29/24 10/18/24 Hi story levothyroxine 75 mcg tablet 75 mcg PO DAILY 06/14/24 10/18/24 History levothyroxine 75 mcg tablet 150 mcg PO CLEARY 06/14/24 10/18/24 Hi story (Euthyrox) blood sugar diagnostic (NavigatorMDuch #100 ea 07/26/24 10/18/24 Rx Verio test strips) blood-glucose meter (NavigatorMDuch #1 ea 07/26/24 10/18/24 Rx Verio Reflect Meter) hydrocortisone 10 mg tablet 10 mg PO TID #270 tabs 07/27/24 Rx hydrocortisone 5 mg tablet 5 mg PO TID #90 tabs 08/01/2410/06 Rx lancets 33 gauge ([employer] #100 ea 10/15/24 10/18/24 Rx Plus Lancet) [facility] Medical History Mixed hyperlipidemia Secondary adrenal insufficiency Uncontrolled hypertension Acute sinusitis, unspecified Diabetes Secondary hypothyroidism Pancreatic calcification Wears glasses Diabetes Thyroid disease Rheumatoid arthritis Bladder disease Anemia Excessive bleeding Back pain Non-smoker CPAP (continuous positive airway pressure) dependence Leg cramps Hypertension History of colon polyps Chronic pancreatitis Lactose intolerance DJD (degenerative joint disease), lumbar Eosinophilic esophagitis Hypertriglyceridemia Bilateral cataracts Seasonal allergies Anemia Segmental and somatic dysfunction of lumbar region Segmental and somatic dysfunction of thoracic region Segmental and somatic dysfunction of cervical region Acute cholecystitis Obesity Hypertension Rheumatoid arthritis Surgical History History of pituitary surgery History of esophagogastroduodenosco py (EGD) ( 05/29/18) S/P colonoscopy ( 05/29/18) History of esophagogastroduodenosco py (EGD) Hx of tonsillectomy Hx of colonoscopy Hx of cholecystectomy S/P cholecystectomy Family History Mother Cancer Hypertension Father Diabetes Social History household members: spouse current occupational status: employed current occupation: [employer] Smoking Status: Never smoker substance use type: does not use HPI Back Pain Chief Complaint: Neck and Low Back Pain Visit Number: 2 Details: MYRANDA OLEA is a 64 year old male here to follow up on ongoing neck and low back discomfort. Pt complains of neck stiffness but denies recent headaches today. He also states his low back is achy equal bilaterally across. He believes his increase in discomfort is d/t the cold temperatures. Pt. denies new injury, numbness, tingling or radiculopathy at this time. Graeme reports chiropractic adjustments are effective in relieving his discomfort but it gradually returns. Location: Neck, low back Duration: Frequent Aggravating or associated factors: Bending, reaching, cold weather Relieving factors: Chiro Pain Quality: aching, dull and cramping Exam Musc General: Yes normal posture, normal gait, joint tenderness and decreased range of motion Cervica (more content not included)... Normal [facility] Chiropractic Reporton 2024 Chiropractic Report [facility] [address] [place] [address] OFFICE VISIT Date of Service: 09/20/24 MR#: [id number] Acct: [id number] Name: MYRANDA OLEA Rep #: [id number] : 1960 Provider: MJ Pemberton Age/Sex: 64/M Location: [facility] Status: Signed Intake Vital Signs 07/26/24 16:07 Height 5 ft 6.5 in Intake Visit Reasons: Back Pain Chief Complaint: neck and low Back pain Is patient in pain?: Yes (neck and low back ) Pain scale (1-10): 7 Allergies diltiazem (From Cardizem) Allergy (Unknown, Verified 09/20/24 17:37) PT UNSURE OF REACTION Medications ???Medication ???Instructions ???Recorded ???Confirmed ???Type carvedilol 25 mg tablet 25 mg PO BID 12/22/15 09/20/24 History finasteride 5 mg tablet 5 mg PO DAILY 12/22/15 09/20/24 History hydralazine 100 mg tablet 100 mg PO TID 12/22/15 09/20/24 History lisinopril 40 mg tablet 40 mg PO DAILY 12/22/15 09/20/24 History multivitamin 1 tab PO DAILY 08/19/17 09/20/24 History hydrocortisone 2.5 % topical cream 1 applic topical BID PRN Skin 05/25/21 09/20/24 History Cleansing ketoconazole 2 % shampoo 1 applic topical QODAY 05/25/21 09/20/24 History oxybutynin chloride 10 mg 10 mg PO DAILY 05/25/21 09/20/24 History tablet,extended release 24 hr cholecalciferol (vitamin D3) 25 25 mcg PO DAILY 12/10/22 09/20/24 History mcg (1,000 unit) capsule lancets 33 gauge ([employer] #100 ea 07/05/23 09/20/24 Rx Plus Lancet) sulfasalazine 500 mg 1,000 mg PO BID 12/15/23 09/20/24 History tablet,delayed release Trulicity 1.5 mg/0.5 mL 1.5 mg (0.5 mL) subcut QWEEK #2 mL 03/29/24 09/20/24 Rx subcutaneous pen injector (dulaglutide) atorvastatin 20 mg tablet 20 mg PO QPM #90 tabs 03/29/24 09/20/24 Rx clonidine HCl 0.3 mg tablet 0.3 mg PO TID 03/29/24 09/20/24 History levothyroxine 75 mcg tablet 75 mcg PO DAILY 06/14/24 09/20/24 History levothyroxine 75 mcg tablet 150 mcg PO CLEARY 06/14/24 09/20/24 History (Euthyrox) blood sugar diagnostic (NavigatorMDuch #100 ea 07/26/24 09/20/24 Rx Verio test strips) blood-glucose meter (OneTouch #1 ea 07/26/24 09/20/24 Rx Verio Reflect Meter) hydrocortisone 10 mg tablet 10 mg PO TID #270 tabs 07/27/24 09/20/24 Rx hydrocortisone 5 mg tablet 5 mg PO TID #90 tabs 08/01/24 09/20/24 Rx PFSH Medical History (Updated 09/24/24 @ 11:[address] Ivette Lai, MJ) Mixed hyperlipidemia Secondary adrenal insufficiency Uncontrolled hypertension Acute sinusitis, unspecified Diabetes Secondary hypothyroidism Pancreatic calcification Wears glasses Diabetes Thyroid disease Rheumatoid arthritis Bladder disease Anemia Excessive bleeding Back pain Non-smoker CPAP (continuous positive airway pressure) dependence Leg cramps Hypertension History of colon polyps Chronic pancreatitis Lactose intolerance DJD (degenerative joint disease), lumbar Eosinophilic esophagitis Hypertriglyceridemia Bilateral cataracts Seasonal allergies Anemia Segmental and somatic dysfunction of lumbar region Segmental and somatic dysfunction of thoracic region Segmental and somatic dysfunction of cervical region Acute cholecystitis Obesity Hypertension Rheumatoid arthritis Surgical History History of pituitary surgery History of esophagogastroduodenosco py (EGD) ( 05/29/18) S/P colonoscopy ( 05/29/18) History of esophagogastroduodenosco py (EGD) Hx of tonsillectomy Hx of colonoscopy Hx of cholecystectomy S/P cholecystectomy Family History Mother Cancer Hypertension Father Diabetes Social History household members: spouse current occupational status: employed current occupation: [employer] Smoking Status: Never smoker substance use type: does not use HPI Back Pain Chief Complaint: Neck and Low Back Pain Visit Number: 1 Details: MYRANDA OLEA is a 64 year old male here to follow up on ongoing neck and low back discomfort. Pt complains of increased pain with the cold weather. He states his neck is stiff and painful but denies recent headaches today. He also complains of low back pain and achiness that is equal bilaterally. He rates his overall pain 5/10. Pt. denies new injury, numbness, tingling or radiculopathy at this time. Graeme reports chiropractic adjustments are effective in relieving some of his pain but it gradually returns. Location: Neck, low back Duration: Frequent Aggravating or associated factors: Bending, reaching, cold weather Relieving factors: Chiro Pain Quality: aching, dull and cramping Exam Musc General: Yes normal posture, normal gait, joint tenderness and decreased range of motion Cervic (more content not included)... Normal [facility] Absolute lymphocyte countOrd ered By: RENETTA JESUS on 09-15-2024 Lymphocytes Auto (Unsp spec) [#/Vol] 1.75 10*3/uL 0.83-4.51 [facility] Absolute neutrophil countOrd ered By: RENETTA JESUS on 09-15-2024 Neutrophils (Bld) [#/Vol] 2.6 10*3/uL 2.0-7.7 [facility] Automated blood erythrocyte countOrdered By: RENETTA JESUS on 09-15-2024 RBC (Bld) [#/Vol] 4.34 10*6/uL Low 4.6-6.2 [facility] Comment on above: Performed By: #### L 400.0001, L500.4050, L101.9900, L3100.1850, L100.9950, L504.2610, L503.0106, L503.6550, L3100.1350, L501.6710, L100.0100, L503.6030 #### [facility] [address] [place], [place], [id number] Automated blood hematocrit ( percentage)Ordered By: RENETTA JESUS on 09-15-2024 Hematocrit (Bld) [Volume fraction] 38.2 % Low 40-54 [facility] Comment on above: Performed By: #### L 400.0001, L500.4050, L101.9900, L3100.1850, L100.9950, L504.2610, L503.0106, L503.6550, L3100.1350, L501.6710, L100.0100, L503.6030 #### [facility] [address] [place], [address] Automated lymphocyte count a s percentage of total leukocytesOrdered By: RENETTA JESUS on 09-15-2024 Lymphocytes/100 WBC (Bld) 33.0 % Normal - [facility] Comment on above: Performed By: #### L 400.0001, L500.4050, L101.9900, L3100.1850, L100.9950, L504.2610, L503.0106, L503.6550, L3100.1350, L501.6710, L100.0100, L503.6030 #### [facility] [address] [place], [place], [id number] Lymphocytes/100 WBC Auto (Unsp spec) 33.0 % [facility] Basophil percentageOrdered B y: RENETTA JESUS on 09-15-2024 Basophils/100 WBC (Bld) 1.9 % High 0-1 [facility] Comment on above: Performed By: #### L 400.0001, L500.4050, L101.9900, L3100.1850, L100.9950, L504.2610, L503.0106, L503.6550, L3100.1350, L501.6710, L100.0100, L503.6030 #### [facility] [address] [place], [place], [id number] CBC W/Diff, Automatedon 09-05 Absolute Lymph 1.75 X10 3/uL Normal 0.83-4.51 [facility] Comment on above: Performed By: #### L 400.0001, L500.4050, L101.9900, L3100.1850, L100.9950, L504.2610, L503.0106, L503.6550, L3100.1350, L501.6710, L100.0100, L503.6030 #### [facility] [address] [place], [place], [id number] Absolute Neut 2.6 X10 3/uL Normal 2.0-7.7 [facility] Comment on above: Performed By: #### L 400.0001, L500.4050, L101.9900, L3100.1850, L100.9950, L504.2610, L503.0106, L503.6550, L3100.1350, L501.6710, L100.0100, L503.6030 #### [facility] [address] [place], [place], [id number] (738) IG% 1.100 High 0.0-0.9 [facility] Comment on above: Result Comment: IG% - Immature Granulocytes (promyelocytes, myelocytes and metamyelocytes) > 1% indicates that a LEFT SHIFT is Present. Performed By: #### L 400.0001, L500.4050, L101.9900, L3100.1850, L100.9950, L504.2610, L503.0106, L503.6550, L3100.1350, L501.6710, L100.0100, L503.6030 #### [facility] [address] [place], [place], [id number] Nucleated RBC (Bld) [#/Vol] 0 10*3/uL Normal 0-5 [facility] Comment on above: Performed By: #### L 400.0001, L500.4050, L101.9900, L3100.1850, L100.9950, L504.2610, L503.0106, L503.6550, L3100.1350, L501.6710, L100.0100, L503.6030 #### [facility] [address] [place], [place], [id number] RDW SD 48.1 fl High 35.1-43.9 [facility] Comment on above: Performed By: #### L 400.0001, L500.4050, L101.9900, L3100.1850, L100.9950, L504.2610, L503.0106, L503.6550, L3100.1350, L501.6710, L100.0100, L503.6030 #### [facility] [address] [place], [address] Eosinophil percentageOrdered By: RENETTA JESUS on 09-15-2024 Eosinophils/100 WBC (Bld) 4.0 % Normal 0-5 [facility] Comment on above: Performed By: #### L 400.0001, L500.4050, L101.9900, L3100.1850, L100.9950, L504.2610, L503.0106, L503.6550, L3100.1350, L501.6710, L100.0100, L503.6030 #### [facility] [address] [place], [address] Erythrocyte distribution wid th ratioOrdered By: RENETTA JESUS on 09-15-2024 Erythrocyte distribution width (RBC) [Ratio] 14.9 % High 11.6-14.6 [facility] Comment on above: Performed By: #### L 400.0001, L500.4050, L101.9900, L3100.1850, L100.9950, L504.2610, L503.0106, L503.6550, L3100.1350, L501.6710, L100.0100, L503.6030 #### [facility] [address] [place], [address] Erythrocyte distribution wid th standard deviationOrdered By: RENETTA JESUS on 09-15-2024 Erythrocyte distribution width (RBC) [Entitic vol] 48.1 fL High 35.1-43.9 [facility] Erythrocyte distribution width (RBC) [Ratio] 48.1 fl High 35.1-43.9 [facility] Hemoglobin measurementOrdere d By: RENETTA JESUS on 09-15-2024 Hemoglobin (Bld) [Mass/Vol] 12.3 g/dL Low 13.0-16.5 [facility] Comment on above: Performed By: #### L 400.0001, L500.4050, L101.9900, L3100.1850, L100.9950, L504.2610, L503.0106, L503.6550, L3100.1350, L501.6710, L100.0100, L503.6030 #### [facility] [address] [facility] [place], [place], [id number] Immature granulocytes/100 WB C Auto (Bld)Ordered By: RENETTA JESUS on 09-15-2024 Immature granulocytes/100 WBC (Bld) 1.100 % High 0.0-0.9 [facility] Comment on above: IG% - Immature Granu locytes (promyelocytes, myelocytes and metamyelocytes) > 1% indicates that a LEFT SHIFT is Present. Lymphocytes Auto (Unsp spec) [#/Vol]Ordered By: RENETTA JESUS on 09-15-2024 Lymphocytes (Bld) [#/Vol] 1.75 10*3/uL 0.83-4.51 [facility] MCV (mean corpuscular volume ) determinationOrdered By: RENETTA JESUS on 09-15-2024 MCV (RBC) [Entitic vol] 88.0 fL Normal 80-94 [facility] Comment on above: Performed By: #### L 400.0001, L500.4050, L101.9900, L3100.1850, L100.9950, L504.2610, L503.0106, L503.6550, L3100.1350, L501.6710, L100.0100, L503.6030 #### [facility] [address] [facility] [place], [place], [id number] Mean corpuscular hemoglobin (MCH) determinationOrdered By: RENETTA JESUS on 09-15-2024 MCH (RBC) [Entitic mass] 28.3 pg Normal 27.0-32.0 [facility] Comment on above: Performed By: #### L 400.0001, L500.4050, L101.9900, L3100.1850, L100.9950, L504.2610, L503.0106, L503.6550, L3100.1350, L501.6710, L100.0100, L503.6030 #### [facility] [address] [place], [place], [id number] Mean corpuscular hemoglobin concentration (MCHC) determinationOrdered By: RENETAT JESUS on 09-15-2024 MCHC (RBC) [Mass/Vol] 32.2 g/dL Normal 32-36 [facility] Comment on above: Performed By: #### L 400.0001, L500.4050, L101.9900, L3100.1850, L100.9950, L504.2610, L503.0106, L503.6550, L3100.1350, L501.6710, L100.0100, L503.6030 #### [facility] [address] [place], [address] Mean platelet volume determi nationOrdered By: RENETTA JESUS on 09-15-2024 Platelet mean volume (Bld) [Entitic vol] 10.1 fL Normal 6.2-12.0 [facility] Comment on above: Performed By: #### L 400.0001, L500.4050, L101.9900, L3100.1850, L100.9950, L504.2610, L503.0106, L503.6550, L3100.1350, L501.6710, L100.0100, L503.6030 #### [facility] [address] [place], [place], [id number] Monocyte percentageOrdered B y: RENETTA JESUS on 09-15-2024 Monocytes/100 WBC (Bld) 11.9 % High 0-10 [facility] Comment on above: Performed By: #### L 400.0001, L500.4050, L101.9900, L3100.1850, L100.9950, L504.2610, L503.0106, L503.6550, L3100.1350, L501.6710, L100.0100, L503.6030 #### [facility] [address] [place], [address] (448) Neutrophil percentageOrdered By: RENETTA JESUS on 09-15-2024 Neutrophils/100 WBC (Bld) 48.1 % Normal 47-70 [facility] Comment on above: Performed By: #### L 400.0001, L500.4050, L101.9900, L3100.1850, L100.9950, L504.2610, L503.0106, L503.6550, L3100.1350, L501.6710, L100.0100, L503.6030 #### [facility] [address] [place], [address] Nucleated red blood cell per centageOrdered By: RENETTA JESUS on 09-15-2024 Nucleated RBC/100 WBC (Bld) [Ratio] 0 % 0-5 [facility] Platelet countOrdered By: ME MINERVA JESUS on 09-15-2024 Platelets (Bld) [#/Vol] 261 10*3/uL Normal 150-450 [facility] Comment on above: Performed By: #### L 400.0001, L500.4050, L101.9900, L3100.1850, L100.9950, L504.2610, L503.0106, L503.6550, L3100.1350, L501.6710, L100.0100, L503.6030 #### [facility] [address] [place], [address] (957) White blood cell (WBC) count Ordered By: RENETTA JESUS on 09-15-2024 WBC (Bld) [#/Vol] 5.3 10*3/uL Normal 4.4-11.0 [facility] Comment on above: Performed By: #### L 400.0001, L500.4050, L101.9900, L3100.1850, L100.9950, L504.2610, L503.0106, L503.6550, L3100.1350, L501.6710, L100.0100, L503.6030 #### [facility] [address] [place], [place], [address] Chiropractic Reporton 2023 Chiropractic Report [facility] [address] [place], [place] [address] OFFICE VISIT Date of Service: 08/23/24 MR#: [id number] Acct: [id number] Name: MYRANDA OLEA Rep #: [id number] : 1960 Provider: MJ Steele Do ssi Age/Sex: 64/M Location: [facility] [place] Status: Signed Intake Vital Signs 06/18/24 06:31 07/26/24 16:07 Height 5 ft 6.5 in 5 ft 6.5 in Weight: 234 lb 6 oz BMI 37.2 BP 148/83 H Blood Pressure Location Rt brachial Position Sitting Pulse 63 Pulse Source Monitor Pulse Oximetry (%) 96 Oxygen Delivery Method room air Intake Visit Reasons: Back Pain Chief Complaint: Back pain Is patient in pain?: Yes (Neck, LBP) Pain scale (1-10): 8 Allergies diltiazem (From Cardizem) Allergy (Unknown, Verified 08/23/24 17:28) PT UNSURE OF REACTION Medications ???Medication ???Instructions ???Recorded ???Confirmed ???Type carvedilol 25 mg tablet 25 mg PO BID 12/22/15 08/23/24 History finasteride 5 mg tablet 5 mg PO DAILY 12/22/15 08/23/24 History hydralazine 100 mg tablet 100 mg PO TID 12/22/15 08/23/24 History lisinopril 40 mg tablet 40 mg PO DAILY 12/22/15 08/23/24 History multivitamin 1 tab PO DAILY 08/19/17 08/23/24 History hydrocortisone 2.5 % topical cream 1 applic topical BID PRN Skin 05/25/21 08/23/24 History Cleansing ketoconazole 2 % shampoo 1 applic topical QODAY 05/25/21 08/23/24 History oxybutynin chloride 10 mg 10 mg PO DAILY 05/25/21 08/23/24 History tablet,extended release 24 hr cholecalciferol (vitamin D3) 25 25 mcg PO DAILY 12/10/22 08/23/24 History mcg (1,000 unit) capsule lancets 33 gauge ([employer] Milvia #100 ea 07/05/23 08/23/24 Rx Plus Lancet) sulfasalazine 500 mg 1,000 mg PO BID 12/15/23 08/23/24 History tablet,delayed release Trulicity 1.5 mg/0.5 mL 1.5 mg (0.5 mL) subcut QWEEK #2 mL 03/29/24 08/23/24 Rx subcutaneous pen injector (dulaglutide) atorvastatin 20 mg tablet 20 mg PO QPM #90 tabs 03/29/24 08/23/24 Rx clonidine HCl 0.3 mg tablet 0.3 mg PO TID 03/29/24 08/23/24 History levothyroxine 75 mcg tablet 75 mcg PO DAILY 06/14/24 08/23/24 History levothyroxine 75 mcg tablet 150 mcg PO CLEARY 06/14/24 08/23/24 History (Euthyrox) blood sugar diagnostic ([employer] #100 ea 07/26/24 08/23/24 Rx Verio test strips) blood-glucose meter ([employer] #1 ea 07/26/24 08/23/24 Rx Verio Reflect Meter) hydrocortisone 10 mg tablet 10 mg PO TID #270 tabs 07/27/24 08/23/24 Rx hydrocortisone 5 mg tablet 5 mg PO TID #90 tabs 08/01/24 08/23/24 Rx PFSH Medical History Mixed hyperlipidemia Secondary adrenal insufficiency Uncontrolled hypertension Acute sinusitis, unspecified Diabetes Secondary hypothyroidism Pancreatic calcification Wears glasses Diabetes Thyroid disease Rheumatoid arthritis Bladder disease Anemia Excessive bleeding Back pain Non-smoker CPAP (continuous positive airway pressure) dependence Leg cramps Hypertension History of colon polyps Chronic pancreatitis Lactose intolerance DJD (degenerative joint disease), lumbar Eosinophilic esophagitis Hypertriglyceridemia Bilateral cataracts Seasonal allergies Anemia Segmental and somatic dysfunction of lumbar region Segmental and somatic dysfunction of thoracic region Segmental and somatic dysfunction of cervical region Acute cholecystitis Obesity Hypertension Rheumatoid arthritis Surgical History History of pituitary surgery History of esophagogastroduodenosco py (EGD) ( 05/29/18) S/P colonoscopy ( 05/29/18) History of esophagogastroduodenosco py (EGD) Hx of tonsillectomy Hx of colonoscopy Hx of cholecystectomy S/P cholecystectomy Family History Mother Cancer Hypertension Father Diabetes Social History household members: spouse current occupational status: employed current occupation: [employer] Smoking Status: Never smoker substance use type: does not use HPI Back Pain Chief Complaint: Neck and Low Back Pain Visit Number: 12 Details: MYRANDA OLEA is a 64 year old male here to follow up on ongoing neck and low back discomfort. He complains of increased pain with the cold weather and getting ready for the holiday. He complains of neck pain and stiffness. He has been experiencing headaches lately. He also complains of low back pain and stiffness that is equal bilaterally and has increased since his last visit. He rates his pain 8/10.Pt. denies new injury, numbness or tingling at this time. Graeme reports chiropractic adjustments are effective in relieving some of his pain but it gradually returns. Location: Neck, low b (more content not included)... Normal [facility] Absolute neutrophil countOrd ered By: RENETTA JESUS on 08-03-2024 Neutrophils (Bld) [#/Vol] 4.0 10*3/uL 2.0-7.7 [facility] Basophil percentageOrdered B y: RENETTA JESUS on 08-03-2024 Basophils/100 WBC (Bld) 1.7 % High 0-1 [facility] CBC W/Diff, Automatedon 07-07 Absolute Lymph 2.28 X10 3/uL Normal 0.83-4.51 [facility] Comment on above: Performed By: #### L 400.0001, L500.4050, L101.9900, L3100.1850, L100.9950, L504.2610, L503.0106, L503.6550, L3100.1350, L501.6710, L100.0100, L503.6030 #### [facility] [address] [place], [address] Absolute Neut 4.0 X10 3/uL Normal 2.0-7.7 [facility] Comment on above: Performed By: #### L 400.0001, L500.4050, L101.9900, L3100.1850, L100.9950, L504.2610, L503.0106, L503.6550, L3100.1350, L501.6710, L100.0100, L503.6030 #### [facility] [address] [place], [address] Basophils/100 WBC (Bld) 1.7 % High 0-1 [facility] Comment on above: Performed By: #### L 400.0001, L500.4050, L101.9900, L3100.1850, L100.9950, L504.2610, L503.0106, L503.6550, L3100.1350, L501.6710, L100.0100, L503.6030 #### [facility] [address] [place], [address] Eosinophils/100 WBC (Bld) 2.9 % Normal 0-5 [facility] Comment on above: Performed By: #### L 400.0001, L500.4050, L101.9900, L3100.1850, L100.9950, L504.2610, L503.0106, L503.6550, L3100.1350, L501.6710, L100.0100, L503.6030 #### [facility] [address] [place], [address] Erythrocyte distribution width (RBC) [Ratio] 14.6 % Normal 11.6-14.6 [facility] Comment on above: Performed By: #### L 400.0001, L500.4050, L101.9900, L3100.1850, L100.9950, L504.2610, L503.0106, L503.6550, L3100.1350, L501.6710, L100.0100, L503.6030 #### [facility] [address] [place], [place], [phone] (526) Hematocrit (Bld) [Volume fraction] 38.2 % Low 40-54 [facility] Comment on above: Performed By: #### L 400.0001, L500.4050, L101.9900, L3100.1850, L100.9950, L504.2610, L503.0106, L503.6550, L3100.1350, L501.6710, L100.0100, L503.6030 #### [facility] [address] [facility] [place], [place], [id number] Hemoglobin (Bld) [Mass/Vol] 12.3 g/dL Low 13.0-16.5 [facility] Comment on above: Performed By: #### L 400.0001, L500.4050, L101.9900, L3100.1850, L100.9950, L504.2610, L503.0106, L503.6550, L3100.1350, L501.6710, L100.0100, L503.6030 #### [facility] [address] [facility] [place], [place], [id number] IG% 1.100 High 0.0-0.9 [facility] Comment on above: Result Comment: IG% - Immature Granulocytes (promyelocytes, myelocytes and metamyelocytes) > 1% indicates that a LEFT SHIFT is Present. Performed By: #### L 400.0001, L500.4050, L101.9900, L3100.1850, L100.9950, L504.2610, L503.0106, L503.6550, L3100.1350, L501.6710, L100.0100, L503.6030 #### [facility] [address] [facility] [place], [address] Lymphocytes/100 WBC (Bld) 30.3 % Normal 19-41 [facility] Comment on above: Performed By: #### L 400.0001, L500.4050, L101.9900, L3100.1850, L100.9950, L504.2610, L503.0106, L503.6550, L3100.1350, L501.6710, L100.0100, L503.6030 #### [facility] [address] [place], [address] MCH (RBC) [Entitic mass] 29.0 pg Normal 27.0-32.0 [facility] Comment on above: Performed By: #### L 400.0001, L500.4050, L101.9900, L3100.1850, L100.9950, L504.2610, L503.0106, L503.6550, L3100.1350, L501.6710, L100.0100, L503.6030 #### [facility] [address] [place], [address] MCHC (RBC) [Mass/Vol] 32.2 g/dL Normal 32-36 [facility] Comment on above: Performed By: #### L 400.0001, L500.4050, L101.9900, L3100.1850, L100.9950, L504.2610, L503.0106, L503.6550, L3100.1350, L501.6710, L100.0100, L503.6030 #### [facility] [address] [place], [address] MCV (RBC) [Entitic vol] 90.1 fL Normal 80-94 [facility] Comment on above: Performed By: #### L 400.0001, L500.4050, L101.9900, L3100.1850, L100.9950, L504.2610, L503.0106, L503.6550, L3100.1350, L501.6710, L100.0100, L503.6030 #### [facility] [address] [place], [place], [phone] ([address] Monocytes/100 WBC (Bld) 11.2 % High 0-10 [facility] Comment on above: Performed By: #### L 400.0001, L500.4050, L101.9900, L3100.1850, L100.9950, L504.2610, L503.0106, L503.6550, L3100.1350, L501.6710, L100.0100, L503.6030 #### [facility] [address] [place], [address] (801 Neutrophils/100 WBC (Bld) 52.8 % Normal 47-70 [facility] Comment on above: Performed By: #### L 400.0001, L500.4050, L101.9900, L3100.1850, L100.9950, L504.2610, L503.0106, L503.6550, L3100.1350, L501.6710, L100.0100, L503.6030 #### [facility] [address] [place], [place], [phone] (896 Nucleated RBC (Bld) [#/Vol] 0 10*3/uL Normal 0-5 [facility] Comment on above: Performed By: #### L 400.0001, L500.4050, L101.9900, L3100.1850, L100.9950, L504.2610, L503.0106, L503.6550, L3100.1350, L501.6710, L100.0100, L503.6030 #### [facility] [address] [place], [address] (981 Platelet mean volume (Bld) [Entitic vol] 9.5 fL Normal 6.2-12.0 [facility] Comment on above: Performed By: #### L 400.0001, L500.4050, L101.9900, L3100.1850, L100.9950, L504.2610, L503.0106, L503.6550, L3100.1350, L501.6710, L100.0100, L503.6030 #### [facility] [address] [place], [address] Platelets (Bld) [#/Vol] 309 10*3/uL Normal 150-450 [facility] Comment on above: Performed By: #### L 400.0001, L500.4050, L101.9900, L3100.1850, L100.9950, L504.2610, L503.0106, L503.6550, L3100.1350, L501.6710, L100.0100, L503.6030 #### [facility] [address] [place], [address] RBC (Bld) [#/Vol] 4.24 10*6/uL Low 4.6-6.2 [facility] Comment on above: Performed By: #### L 400.0001, L500.4050, L101.9900, L3100.1850, L100.9950, L504.2610, L503.0106, L503.6550, L3100.1350, L501.6710, L100.0100, L503.6030 #### [facility] [address] [place], [place], [id number] (225) RDW SD 47.9 fl High 35.1-43.9 [facility] Comment on above: Performed By: #### L 400.0001, L500.4050, L101.9900, L3100.1850, L100.9950, L504.2610, L503.0106, L503.6550, L3100.1350, L501.6710, L100.0100, L503.6030 #### [facility] [address] [place], [address] WBC (Bld) [#/Vol] 7.5 10*3/uL Normal 4.4-11.0 [facility] Comment on above: Performed By: #### L 400.0001, L500.4050, L101.9900, L3100.1850, L100.9950, L504.2610, L503.0106, L503.6550, L3100.1350, L501.6710, L100.0100, L503.6030 #### [facility] [address] [facility] [place], [address] Eosinophil percentageOrdered By: RENETTA JESUS on 08-03-2024 Eosinophils/100 WBC (Bld) 2.9 % 0-5 [facility] Erythrocyte distribution wid th ratioOrdered By: RENETTA JESUS on 08-03-2024 Erythrocyte distribution width (RBC) [Ratio] 14.6 % 11.6-14.6 [facility] Erythrocyte distribution wid th standard deviationOrdered By: RENETTA JESUS on 08-03-2024 Erythrocyte distribution width (RBC) [Entitic vol] 47.9 fL High 35.1-43.9 [facility] Ferritinon 08-03-2024 Ferritin [Mass/Vol] 104 ng/mL Normal -388 [facility] Comment on above: Order Comment: SUNIL Performed By: #### L 400.0001, L500.4050, L101.9900, L3100.1850, L100.9950, L504.2610, L503.0106, L503.6550, L3100.1350, L501.6710, L100.0100, L503.6030 #### [facility] [address] [place], [address] Ferritin measurementOrdered By: RENETTA JESUS on 08-03-2024 Ferritin [Mass/Vol] 104 ng/mL -388 [facility] Hematocrit Auto (Bld) [Volum e fraction]Ordered By: RENETTA JESUS on 08-03-2024 Hematocrit (Bld) [Volume fraction] 38.2 % Low 40-54 [facility] Hemoglobin measurementOrdere d By: RENETTA JESUS on 08-03-2024 Hemoglobin (Bld) [Mass/Vol] 12.3 g/dL Low 13.0-16.5 [facility] Immature granulocytes/100 WB C Auto (Bld)Ordered By: RENETTA JESUS on 08-03-2024 Immature granulocytes/100 WBC (Bld) 1.100 % High 0.0-0.9 [facility] Comment on above: IG% - Immature Granu locytes (promyelocytes, myelocytes and metamyelocytes) > 1% indicates that a LEFT SHIFT is Present. Iron (Unsp spec) [Mass/Mass] Ordered By: RENETTA JESUS on 08-03-2024 Iron [Mass/Vol] 53 ug/dL Low 65-175 [facility] Iron saturation [Mass fracti on]Ordered By: RENETTA JESUS on 08-03-2024 Iron Saturation 17.3 % 15.0-55.0 [facility] Iron+Iron Binding Capacityon 08-03-2024 Iron [Mass/Vol] 53 ug/dL Low 65-175 [facility] Comment on above: Order Comment: SUNIL Performed By: #### L 400.0001, L500.4050, L101.9900, L3100.1850, L100.9950, L504.2610, L503.0106, L503.6550, L3100.1350, L501.6710, L100.0100, L503.6030 #### [facility] [address] [place], [place], [id number] IRON SATURATION 17.3 Normal 15.0-55.0 [facility] Comment on above: Order Comment: SUNIL Performed By: #### L 400.0001, L500.4050, L101.9900, L3100.1850, L100.9950, L504.2610, L503.0106, L503.6550, L3100.1350, L501.6710, L100.0100, L503.6030 #### [facility] [address] [place], [place], [id number] TIBC 306 ug/dL Normal 250-450 [facility] Comment on above: Order Comment: SUNIL Performed By: #### L 400.0001, L500.4050, L101.9900, L3100.1850, L100.9950, L504.2610, L503.0106, L503.6550, L3100.1350, L501.6710, L100.0100, L503.6030 #### [facility] [address] [place], [place], [id number] Lymphocytes Auto (Unsp spec) [#/Vol]Ordered By: RENETTA JESUS on 08-03-2024 Lymphocytes (Bld) [#/Vol] 2.28 10*3/uL 0.83-4.51 [facility] Lymphocytes/100 WBC Auto (Un sp spec)Ordered By: RENETTA JESUS on 08-03-2024 Lymphocytes/100 WBC (Bld) 30.3 % 19-41 [facility] MCV (mean corpuscular volume ) determinationOrdered By: RENETTA JESUS on 08-03-2024 MCV (RBC) [Entitic vol] 90.1 fL 80-94 [facility] Mean corpuscular hemoglobin (MCH) determinationOrdered By: RENETTA JESUS on 08-03-2024 MCH (RBC) [Entitic mass] 29.0 pg 27.0-32.0 [facility] Mean corpuscular hemoglobin concentration (MCHC) determinationOrdered By: RENETTA JESUS on 08-03-2024 MCHC (RBC) [Mass/Vol] 32.2 g/dL 32-36 [facility] Mean platelet volume determi nationOrdered By: RENETTA JESUS on 08-03-2024 Platelet mean volume (Bld) [Entitic vol] 9.5 fL 6.2-12.0 [facility] Monocyte percentageOrdered B y: RENETTA JESUS on 08-03-2024 Monocytes/100 WBC (Bld) 11.2 % High 0-10 [facility] Neutrophil percentageOrdered By: RENETTA JESUS on 08-03-2024 Neutrophils/100 WBC (Bld) 52.8 % 47-70 [facility] Nucleated red blood cell per centageOrdered By: RENETTA JESUS on 08-03-2024 Nucleated RBC/100 WBC (Bld) [Ratio] 0 % 0-5 [facility] [facility] Platelet countOrdered By: ME MINERVA JESUS on 08-03-2024 Platelets (Bld) [#/Vol] 309 10*3/uL 150-450 [facility] RBC Auto (Bld) [#/Vol]Ordere d By: RENETTA JESUS on 08-03-2024 RBC (Bld) [#/Vol] 4.24 10*6/uL Low 4.6-6.2 [facility] TIBCOrdered By: RENETTA JACKSON on 08-03-2024 Total Iron Binding Capacity 306 ug/dL 250-450 [facility] White blood cell (WBC) count Ordered By: RENETTA JESUS on 08-03-2024 WBC (Bld) [#/Vol] 7.5 10*3/uL 4.4-11.0 [facility] Chiropractic Reporton 2023 Chiropractic Report [facility] [address] [place] [address] OFFICE VISIT Date of Service: 07/26/24 MR#: [id number] Acct: [id number] Name: MYRANDA OLEA Derrick Rep #: [id number] : 1960 Provider: MJ Steele Do ssi Age/Sex: 63/M [place] [facility] [place] Status: Signed Intake Vital Signs 05/15/24 11:18 07/26/24 16:07 Height 5 ft 6.5 in 5 ft 6.5 in Weight: 234 lb 6 oz BMI 37.2 BP 148/83 H Blood Pressure Location Rt brachial Position Sitting Pulse 63 Pulse Source Monitor Pulse Oximetry (%) 96 Oxygen Delivery Method room air Intake Visit Reasons: Back Pain Chief Complaint: Back pain/neck Is patient in pain?: Yes (Neck, LBP) Pain scale (1-10): 6 Allergies diltiazem (From Cardizem) Allergy (Unknown, Verified 07/26/24 17:30) PT UNSURE OF REACTION Medications ???Medication ???Instructions ???Recorded ???Confirmed ???Type carvedilol 25 mg tablet 25 mg PO BID 12/22/15 07/26/24 History finasteride 5 mg tablet 5 mg PO DAILY 12/22/15 07/26/24 History hydralazine 100 mg tablet 100 mg PO TID 12/22/15 07/26/24 History lisinopril 40 mg tablet 40 mg PO DAILY 12/22/15 07/26/24 History multivitamin 1 tab PO DAILY 08/19/17 07/26/24 History hydrocortisone 2.5 % topical cream 1 applic topical BID PRN Skin 05/25/21 07/26/24 History Cleansing ketoconazole 2 % shampoo 1 applic topical QODAY 05/25/21 07/26/24 History oxybutynin chloride 10 mg 10 mg PO DAILY 05/25/21 07/26/24 History tablet,extended release 24 hr cholecalciferol (vitamin D3) 25 25 mcg PO DAILY 12/10/22 07/26/24 History mcg (1,000 unit) capsule lancets 33 gauge ([employer] BiomaterialsTouch Delica #100 ea 07/05/23 07/26/24 Rx Plus Lancet) sulfasalazine 500 mg 1,000 mg PO BID 12/15/23 07/26/24 History tablet,delayed release Trulicity 1.5 mg/0.5 mL 1.5 mg (0.5 mL) subcut QWEEK #2 mL 03/29/24 07/26/24 Rx subcutaneous pen injector (dulaglutide) atorvastatin 20 mg tablet 20 mg PO QPM #90 tabs 03/29/24 07/26/24 Rx clonidine HCl 0.3 mg tablet 0.3 mg PO TID 03/29/24 07/26/24 History levothyroxine 75 mcg tablet 75 mcg PO DAILY 06/14/24 07/26/24 History levothyroxine 75 mcg tablet 150 mcg PO CLEARY 06/14/24 07/26/24 History (Euthyrox) blood sugar diagnostic ([employer] Bi[employer]Touch #100 ea 07/26/24 07/26/24 Rx Verio test strips) blood-glucose meter ([employer]Touch #1 ea 07/26/24 07/26/24 Rx Verio Reflect Meter) hydrocortisone 10 mg tablet 10 mg PO TID #270 tabs 07/27/24 Rx PFSH Medical History (Updated 07/30/24 @ 11:[address] Monika Lovett MD) Mixed hyperlipidemia Secondary adrenal insufficiency Uncontrolled hypertension Acute sinusitis, unspecified Diabetes Secondary hypothyroidism Pancreatic calcification Wears glasses Diabetes Thyroid disease Rheumatoid arthritis Bladder disease Anemia Excessive bleeding Back pain Non-smoker CPAP (continuous positive airway pressure) dependence Leg cramps Hypertension History of colon polyps Chronic pancreatitis Lactose intolerance DJD (degenerative joint disease), lumbar Eosinophilic esophagitis Hypertriglyceridemia Bilateral cataracts Seasonal allergies Anemia Segmental and somatic dysfunction of lumbar region Segmental and somatic dysfunction of thoracic region Segmental and somatic dysfunction of cervical region Acute cholecystitis Obesity Hypertension Rheumatoid arthritis Surgical History History of pituitary surgery History of esophagogastroduodenosco py (EGD) ( 05/29/18) S/P colonoscopy ( 05/29/18) History of esophagogastroduodenosco py (EGD) Hx of tonsillectomy Hx of colonoscopy Hx of cholecystectomy S/P cholecystectomy Family History Mother Cancer Hypertension Father Diabetes Social History household members: spouse current occupational status: employed current occupation: [employer] Smoking Status: Never smoker substance use type: does not use HPI Back Pain Chief Complaint: Neck and Low Back Pain Visit Number: 11 Details: MYRANDA OLEA is a 63 year old male here to follow up on ongoing neck and low back discomfort. He complains of increased pain with the cold weather. He complains of neck pain, stiffness and limited ROM. He denies any recent headaches. He also complains of low back pain and stiffness that is equal bilaterally. He rates his pain 6/10. Pt. continues to care for his who previously had surgery, as well as extra help around the house. Pt. denies new injury, numbness or tingling at this time. Graeme reports chiropractic adjustments are effective in relieving some of his pain but it gradually returns. Location: Neck, low back Duration: Frequent Aggravating (more content not included)... Normal [facility] Endocrinology Visit Reporton 07-26-2024 Endocrinology Visit Report [facility] [address] [place] [address] OFFICE VISIT Date of Service: 07/26/24 MR#: [id number] Acct: [id number] Name: MYRANDA OLEA Rep #: [id number] : 1960 Provider: Adi Houser Age/Sex: 63/M Location: [facility] [place] Status: Signed Intake Vital Signs 03/29/24 15:27 06/18/24 06:31 07/26/24 16:07 Height 5 ft 6.5 in 5 ft 6.5 in 5 ft 6.5 in Weight: 234 lb 6 oz BMI 37.2 BP 148/83 H Blood Pressure Location Rt brachial Position Sitting Pulse 63 Pulse Source Monitor Pulse Oximetry (%) 96 Oxygen Delivery Method room air Intake Visit Reasons: 4 M FU Chief Complaint: Diabetes/pituitary Is patient in pain?: No Allergies diltiazem (From [facility]) Allergy (Unknown, Verified 07/26/24 17:30) PT UNSURE OF REACTION Medications ???Medication ???Instructions ???Recorded ???Confirmed ???Type carvedilol 25 mg tablet 25 mg PO BID 12/22/15 07/26/24 History finasteride 5 mg tablet 5 mg PO DAILY 12/22/15 07/26/24 History hydralazine 100 mg tablet 100 mg PO TID 12/22/15 07/26/24 History lisinopril 40 mg tablet 40 mg PO DAILY 12/22/15 07/26/24 History multivitamin 1 tab PO DAILY 08/19/17 07/26/24 History hydrocortisone 2.5 % topical cream 1 applic topical BID PRN Skin 05/25/21 07/26/24 History Cleansing ketoconazole 2 % shampoo 1 applic topical QODAY 05/25/21 07/26/24 History oxybutynin chloride 10 mg 10 mg PO DAILY 05/25/21 07/26/24 History tablet,extended release 24 hr cholecalciferol (vitamin D3) 25 25 mcg PO DAILY 12/10/22 07/26/24 History mcg (1,000 unit) capsule lancets 33 gauge (OneTouch [employer] #100 ea 07/05/23 07/26/24 Rx Plus Lancet) sulfasalazine 500 mg 1,000 mg PO BID 12/15/23 07/26/24 History tablet,delayed release Trulicity 1.5 mg/0.5 mL 1.5 mg (0.5 mL) subcut QWEEK #2 mL 03/29/24 07/26/24 Rx subcutaneous pen injector (dulaglutide) atorvastatin 20 mg tablet 20 mg PO QPM #90 tabs 03/29/24 07/26/24 Rx clonidine HCl 0.3 mg tablet 0.3 mg PO TID 03/29/24 07/26/24 History levothyroxine 75 mcg tablet 75 mcg PO DAILY 06/14/24 07/26/24 History levothyroxine 75 mcg tablet 150 mcg PO CLEARY 06/14/24 07/26/24 History (Euthyrox) blood sugar diagnostic (OneTouch #100 ea 07/26/24 07/26/24 Rx Verio test strips) blood-glucose meter (OneTouch #1 ea 07/26/24 07/26/24 Rx Verio Reflect Meter) hydrocortisone 10 mg tablet 10 mg PO TID #270 tabs 07/27/24 Rx PFSH Medical History (Updated 07/30/24 @ 11:[address] Monika Lovett MD) Mixed hyperlipidemia Secondary adrenal insufficiency Uncontrolled hypertension Acute sinusitis, unspecified Diabetes Secondary hypothyroidism Pancreatic calcification Wears glasses Diabetes Thyroid disease Rheumatoid arthritis Bladder disease Anemia Excessive bleeding Back pain Non-smoker CPAP (continuous positive airway pressure) dependence Leg cramps Hypertension History of colon polyps Chronic pancreatitis Lactose intolerance DJD (degenerative joint disease), lumbar Eosinophilic esophagitis Hypertriglyceridemia Bilateral cataracts Seasonal allergies Anemia Segmental and somatic dysfunction of lumbar region Segmental and somatic dysfunction of thoracic region Segmental and somatic dysfunction of cervical region Acute cholecystitis Obesity Hypertension Rheumatoid arthritis Surgical History History of pituitary surgery History of esophagogastroduodenosco py (EGD) ( 05/29/18) S/P colonoscopy ( 05/29/18) History of esophagogastroduodenosco py (EGD) Hx of tonsillectomy Hx of colonoscopy Hx of cholecystectomy S/P cholecystectomy Family History Mother Cancer Hypertension Father Diabetes Social History household members: spouse current occupational status: employed current occupation: [employer] Smoking Status: Never smoker substance use type: does not use HPI HPI Chief Complaint: Diabetes/pituitary Details: MYRANDA OLEA, is a 63 M who presents to the office today for follow up. A1C is 5.1% He is taking Trulicity 1.5 mg weekly. H has history of pituitary surgery. He is taking levothyroxine. Last set of testosterone labs were normal. He is on hydrocortisone. He is on statin and [place] He is feeling some fatigue. He has systemic arthritis and he has joint pain. ROS Const Constitutional: Positive for fatigue; No weight change or change in appetite Eyes Eyes: No change in vision ENT ENT: No dizziness/vertigo or difficulty swallowing Cardio Cardiology: No chest pain at rest, chest pain with exertion, shortness of breath or palpitations Musc Musculo (more content not included)... Normal [facility] Office Visiton 07-11-2024 Follow-up visit [id number] Paolo Olea 1960 M Date Provider Department Center 07/11/2024 [id number] DURAN [facility] Family History Problem Relation Age of Onset Lung cancer Mother 79 Comments: adeno [place], nonsmoker, age 81 in 07/2022 High Blood Pressure Mother Lymphoma Mother Comments: lymphoma Diabetes Father Prostate cancer Father 55 Comments: at age 70 in 2008 Coronary artery disease Father Prostate cancer Brother 52 Comments: s/p prostatectomy Hypertension Brother Prostate cancer Brother 55 Comments: age 60 in 03/26 mets to bone, spinal cord comp Hypertension Maternal Grandmother Comments: in 80s, COPD Maternal Grandfather Comments: miners lung, [place] Diabetes Paternal Grandmother Comments: age 70 Diabetes Paternal Grandfather Family Status - Relation Status Age at Mother Father 70 Brother Alive Brother Maternal Grandmother Maternal Grandfather Paternal Grandmother Paternal Grandfather Level of Service:06254 [place] PERIODIC PREVENTIVE MED EST PATIENT 40-64YRS Reason for Visit and Comments: Annual Exam [83] - Physical Normal [facility] Progress Noteon 07-11-2024 Progress Note [facility] [place] [address] [facility] [id number] Visit type: Established Patient Reason for Visit: Annual Exam (Physical ) Assessment / Plan: Graeme was seen today for annual exam. Diagnoses and all orders for this visit: Annual physical exam (Primary) Inflammatory arthritis Anemia of chronic disease Comments: Stable, follow-up with endocrine and rheumatology Psoriatic arthritis (HCC) Hx of colonic polyps Comments: Noted, colonoscopy 3 years Family history of prostate cancer Hypertriglyceridemia Comments: Stable, continue Lipitor Essential hypertension Comments: Uncontrolled, increase clonidine. BP check 4 weeks continue all other meds Pituitary adenoma (HCC) Type 2 diabetes mellitus without complication, without long-term current use of insulin (CMS/HCC) (HCC) Comments: Stable, continue Trulicity Acquired hypothyroidism Comments: Stable, continue Levothyroid Elevated prostate specific antigen less than 10 ng/ml Comments: Stable, continue Proscar and obtain PSA per urology in a few months Other orders - atorvastatin (Lipitor) 10 MG tablet; Take 1 tablet (10 mg) by mouth Nightly for 360 doses. - carvedilol (Coreg) 25 MG tablet; Take 1 tablet (25 mg) by mouth 2 times daily (with meals). - cloNIDine (Catapres) 0.3 MG tablet; One q AM , one q afternoon, then 2 q PM - finasteride (Proscar) 5 MG tablet; Take 1 tablet (5 mg) by mouth daily. - hydrALAZINE (Apresoline) 100 MG tablet; Take 1 tablet (100 mg) by mouth 3 times daily. - lisinopril 40 MG tablet; Take 1 tablet (40 mg) by mouth daily. Subjective: Patient ID: Myranda Olea is a 63 y.o. male. HPI annual physical for well-controlled diabetic on Trulicity, with history of hypertension, hyperlipidemia. Pituitary tumor and elevated PSA. Overall has felt well. Last A1c per endocrine was 5.0. He recently underwent a colonoscopy show recurrent polyps and needs an exam in 3 years. Also gets his PSA followed which has been slightly elevated by urology in a few months. Review of Systems has had struggles getting off Solu-Medrol for his pituitary lesion. Still at 2030 mg a day. Glucose levels are excellent. Blood pressure does run above 130 at home and other appointments. He does not feel ill. Vaccinations up-to-date. No recent earache sore throat or cough. Denies chest pain or dyspnea. No heartburn. No abdominal pain. Bowels are regular. No melena or blood. Some nocturia but denies dysuria hematuria. No change in arthralgias. His rheumatoid is well treated with sulfasalazine. Allergies Allergen Reactions Milk (Cow) Other reaction(s): GI Upset cough, diarrhea, scratchy throat Other reaction(s): GI Upset Diltiazem Other reaction(s): Other (See Comments) edema Other reaction(s): Unknown Milk-Related Compounds Other reaction(s): Other (See Comments) Lactose intolerant Other reaction(s): Diarrhea Other reaction(s): Diarrhea Current Outpatient Medications on File Prior to Visit Medication Sig Dispense Refill acetaminophen (Tylenol 8 Hour) 650 MG ER tablet Take 650 mg by mouth every 8 hours as needed for mild pain (1-3). Do not crush, chew, or split. cholecalciferol (Vitamin D3) 25 MCG (1000 UT) tablet Take by mouth daily. hydrocortisone (Cortef) 10 MG tablet hydrocortisone 2.5 % cream Apply topically. ketoconazole (NIZOral) 2 % shampoo levothyroxine (Synthroid, Levoxyl) 75 MCG tablet Multiple Vitamins-Iron (MULTI-VITAMIN/IRON PO) Take by mouth. oxybutynin XL (Ditropan-XL) 10 MG 24 hr tablet sodium chloride 0.9 % irrigation solution Irrigate as directed each nostril with 60cc of solution twice daily. Dispense one liter bottles sulfaSALAzine 500 MG EC tablet Take 1,000 mg by mouth 2 times daily. Trulicity 0.75 MG/0.5ML solution pen-injector Inject 0.75 mg under the skin 1 (one) time per week. (Patient taking differently: Inject 0.75 mg under the skin 1 (one) time per week. 1.5) [DISCONTINUED] atorvastatin (Lipitor) 10 MG tablet Take 1 tablet (10 mg) by mouth Nightly for 360 doses. 90 tablet 1 [DISCONTINUED] carvedilol (Coreg) 25 MG tablet Take 1 tablet (25 mg) by mouth in the morning and 1 tablet (25 mg) in the evening. Take with meals. 180 tablet 1 [DISCONTINUED] cloNIDine (Catapres) 0.3 MG tablet Inc to 0.3 mg tab TID 270 tablet 1 [DISCONTINUED] finasteride (Proscar) 5 MG tablet Take 1 tablet (5 mg) by mouth daily. 90 tablet 1 [DISCONTINUED] hydrALAZINE (Apresoline) 100 MG tablet Take 1 tablet (100 mg) by mouth 3 times daily. 270 tablet 1 [DISCONTINUED] lisinopril 40 MG tablet Take 1 tablet (40 mg) by mouth daily. 90 tablet 1 Glucose Blood (Blood Glucose Test) strip 100 strips by Other route. Lancets (OneTouch Delica Plus [id number]) [facility] [place] Verio test strip [DISCONTINUED] glimepiride (Amaryl) 2 MG tablet (Patient not taking: Reported on 07/11/2024) [DISCONTINUED] mirabegron ER (Myrbetriq) 50 MG 24 (more content not included)... Normal [facility] Chiropractic Reporton 2023 Chiropractic Report [facility] [address] [place] [address] OFFICE VISIT Date of Service: 07/05/24 MR#: [id number] Acct: [id number] Name: MYRANDA OLEA Derrick Rep #: [id number] : 1960 Provider: MJ Steele Do ssi Age/Sex: 63/M Location[place] [facility] [place] Status: Signed Intake Vital Signs 03/29/24 15:27 06/18/24 06:31 Height 5 ft 6.5 in 5 ft 6.5 in Intake Visit Reasons: Back Pain Chief Complaint: Back pain/neck Is patient in pain?: Yes (Neck, LBp) Pain scale (1-10): 7 Allergies diltiazem (From Cardizem) Allergy (Unknown, Verified 07/05/24 17:33) PT UNSURE OF REACTION Medications ???Medication ???Instructions ???Recorded ???Confirmed ???Type carvedilol 25 mg tablet 25 mg PO BID 12/22/15 07/05/24 History finasteride 5 mg tablet 5 mg PO DAILY 12/22/15 07/05/24 History hydralazine 100 mg tablet 100 mg PO TID 12/22/15 07/05/24 History lisinopril 40 mg tablet 40 mg PO DAILY 12/22/15 07/05/24 History multivitamin 1 tab PO DAILY 08/19/17 07/05/24 History hydrocortisone 2.5 % topical cream 1 applic topical BID PRN Skin 05/25/21 07/05/24 History Cleansing ketoconazole 2 % shampoo 1 applic topical QODAY 05/25/21 07/05/24 History oxybutynin chloride 10 mg 10 mg PO DAILY 05/25/21 07/05/24 History tablet,extended release 24 hr cholecalciferol (vitamin D3) 25 25 mcg PO DAILY 12/10/22 07/05/24 History mcg (1,000 unit) capsule blood sugar diagnostic ([employer] #100 ea 06/30/23 07/05/24 Rx Verio test strips) blood-glucose meter (OneTouch #1 ea 06/30/23 07/05/24 Rx Verio Reflect Meter) lancets 33 gauge (OneTouch [employer]ica #100 ea 07/05/23 07/05/24 Rx Plus Lancet) sulfasalazine 500 mg 1,000 mg PO BID 12/15/23 07/05/24 History tablet,delayed release Trulicity 1.5 mg/0.5 mL 1.5 mg (0.5 mL) subcut QWEEK #2 mL 03/29/24 07/05/24 Rx subcutaneous pen injector (dulaglutide) atorvastatin 20 mg tablet 20 mg PO QPM #90 tabs 03/29/24 07/05/24 Rx clonidine HCl 0.3 mg tablet 0.3 mg PO TID 03/29/24 07/05/24 History hydrocortisone 10 mg tablet 10 mg PO TID #270 tabs 03/29/24 07/05/24 Rx levothyroxine 75 mcg tablet 75 mcg PO DAILY 06/14/24 07/05/24 History levothyroxine 75 mcg tablet 150 mcg PO CLEARY 06/14/24 07/05/24 History (Euthyrox) [facility] Medical History Mixed hyperlipidemia Secondary male hypogonadism Secondary adrenal insufficiency Uncontrolled hypertension Acute sinusitis, unspecified Diabetes Secondary hypothyroidism Pancreatic calcification Wears glasses Diabetes Thyroid disease Rheumatoid arthritis Bladder disease Anemia Excessive bleeding Back pain Non-smoker CPAP (continuous positive airway pressure) dependence Leg cramps Hypertension History of colon polyps Chronic pancreatitis Lactose intolerance DJD (degenerative joint disease), lumbar Eosinophilic esophagitis Hypertriglyceridemia Bilateral cataracts Seasonal allergies Anemia Segmental and somatic dysfunction of lumbar region Segmental and somatic dysfunction of thoracic region Segmental and somatic dysfunction of cervical region Acute cholecystitis Obesity Hypertension Rheumatoid arthritis Surgical History History of pituitary surgery History of esophagogastroduodenosco py (EGD) ( 05/29/18) S/P colonoscopy ( 05/29/18) History of esophagogastroduodenosco py (EGD) Hx of tonsillectomy Hx of colonoscopy Hx of cholecystectomy S/P cholecystectomy Family History Mother Cancer Hypertension Father Diabetes Social History household members: spouse current occupational status: employed current occupation: [employer] Smoking Status: Never smoker substance use type: does not use HPI Back Pain Chief Complaint: Neck and Low Back Pain Visit Number: 10 Details: MYRANDA OLEA is a 63 year old M here to f/u on ongoing neck and low back discomfort. He complains of increased pain in his neck today, he denies headaches. He reports limited ROM in his neck. Rates his neck pain at a 6/10. He also complains of low back pain that has also increased today he continues this to the weather change. He rates his back pain 7/10. Pt. continues to care for his who previously had surgery, as well as extra help around the house. Pt. denies new injury, numbness or tingling at this time. Graeme reports chiropractic adjustments are effective in relieving some of his pain but it gradually returns. Location: Neck, low back Duration: Frequent Aggravating or associated factors: Bending, reaching, lifting Relieving factors: Chiro Pain Quality: aching, dull and cramping Exam Musc General: Yes norm (more content not included)... Normal [facility] Bedside Glucoseon 06-18-2024 FINGERSTICK GLU 108 mg/dL High 74-106 [facility] Comment on above: Result Comment: ANASTACIA KEYS OF PATIENT CARE PER NURSING PROTOCOL Performed By: #### L 501.080 ####[facility] [id number] [place], [address] Colonoscopy Reporton 024 Colonoscopy Report [facility] Medical Records Department [address] [place] [address] Colonoscopy Report MR#: [id number] Acct: [id number] Name: MYRANDA OLEA Rep #: [id number] : 1960 63 From: Mitchel Zuniga DO PCP: Dr. William Amado DO Status:[facility] Patient Name: Myranda Olea Procedure Date: 06/18/2024 7:18 AM Date of : 1960 Age: 63 Procedure: Colonoscopy Indications: High risk colon cancer surveillance: Personal history of colonic polyps Providers: Mitchel Zuniga DO Referring MD: William Amado Medicines: Monitored Anesthesia Care Patient Profile: This is a 63 year old male. Refer to note in patient chart for documentation of history and physical. Last Colonoscopy: more than 3 years ago. Complications: No immediate complications. Procedure: Pre-Anesthesia Assessment: - Prior to the procedure, a History and Physical was performed, and patient medications and allergies were reviewed. The patient is competent. The risks and benefits of the procedure and the sedation options and risks were discussed with the patient. All questions were answered and informed consent was obtained. Patient identification and proposed procedure were verified by the physician in the pre-procedure area. Mental Status Examination: alert and oriented. Airway Examination: normal oropharyngeal airway and neck mobility. Respiratory Examination: clear to auscultation. CV Examination: normal. Prophylactic Antibiotics: The patient does not require prophylactic antibiotics. Prior Anticoagulants: The patient has taken no anticoagulant or antiplatelet agents except for NSAID medication. ASA Grade Assessment: II - A patient with mild systemic disease. After reviewing the risks and benefits, the patient was deemed in satisfactory condition to undergo the procedure. The anesthesia plan was to use monitored anesthesia care (MAC). Immediately prior to administration of medications, the patient was re-assessed for adequacy to receive sedatives. The heart rate, respiratory rate, oxygen saturations, blood pressure, adequacy of pulmonary ventilation, and response to care were monitored throughout the procedure. The physical status of the patient was re-assessed after the procedure. After I obtained informed consent, the scope was passed under direct vision. Throughout the procedure, the patient's blood pressure, pulse, and oxygen saturations were monitored continuously. The pediatric colonoscope was introduced through the anus and advanced to the cecum, identified by the ileocecal valve. The colonoscopy was performed without difficulty. The patient tolerated the procedure well. The quality of the bowel preparation was adequate. Scope In: 7:29:12 AM Scope Withdrawal Time 0 hours 15 minutes 49 seconds Scope Out: 7:52:38 AM Total Procedure Duration Time 0 hours 23 minutes 26 seconds Findings: The perianal and digital rectal examinations were normal. Multiple small and large-mouthed diverticula were found in the recto-sigmoid colon and sigmoid colon. Four sessile polyps were found in the rectum, sigmoid colon, descending colon and transverse colon. The polyps were 1 to 2 mm in size. These polyps were removed with a cold snare. Resection and retrieval were complete. Verification of patient identification for the specimen was done. Estimated blood loss was minimal. A 3 mm polyp was found in the sigmoid colon. The polyp was sessile. The polyp was removed with a jumbo cold forceps. Resection and retrieval were complete. Verification of patient identification for the specimen was done. Estimated blood loss was minimal. Stool was found in the cecum, precluding visualization. Impression: - Diverticulosis in the recto-sigmoid colon and in the sigmoid colon. - Four 1 to 2 mm polyps in the rectum, in the sigmoid colon, in the descending colon and in the transverse colon, removed with a cold snare. Resected and retrieved. - One 3 mm polyp in the sigmoid colon, removed with a jumbo cold forceps. Resected and retrieved. - Stool in the cecum. Recommendation: - Discharge patient to home. - Resume previous diet. - Continue present medications. - Await pathology results. - Repeat colonoscopy in 3 years for surveillance. Procedure Code(s): --- Professional --- 41040, Colonoscopy, flexible; with removal of tumor(s), polyp(s), or other lesion(s) by snare technique 67056, 59, Colonoscopy, flexible; with biopsy, single or multiple CPT copyright 2021 [employer]. All rights reserved. The codes documented in this report are preliminary and upon clinical manager review may be revised to meet current compliance requirements. Mitchel Zuniga DO 06/18/2024 8:00:17 AM This report has been signed electronically. Number of Addenda: 0 Note Initiated On: 06/18/2024 7 (more content not included)... [facility] [email or web address] 06-18-2024 MR/POSTOP.[facility] Medical Records Department [address] [place] [address] Anesthesia Postop Eval I 06/18/24 08 MR#: [id number] Acct: [id number] Name: MYRANDA OLEA P Rep #: [id number] : 1960 63 From: Tommy Martinez PCP: Dr. William Amado, DO Status:REG SDC Y Race: C Location: [place] [address] Anesthesia: Postop Eval I Current Vital Signs Temperature: 97.2 F Pulse Rate: 67 Blood Pressure: 93/59 Respiratory Rate: 16 Pulse Ox: 91 Oxygen Delivery Method: Room Air Assessment Airway patent: Yes Spontaneous unlabored respirations: Yes Mental status: Asleep nausea: No Vomiting: No Anesthesia Complication: No Fluid Hydration Crystalloid volume administer (ml): 30 Total IV fluid infused: 30 Progress Note Anesthesia document: Postop Eval 1 completed: Yes 06/18/24801 Date Tommy Salinas Signature: Date CC: Signed [facility] [email or web address] 06-18-2024 MR/POSTOPAN2 [facility] Medical Records Department [address] [place] [address] Anesthesia Postop Eval II 06/18/24818 MR#: [id number] Acct: [id number] Name: MYRANDA OLEA P Rep #: [id number] : 1960 63 From: Jovan Kapoor MD PCP: Dr. William Amado, DO Status:REG SDC Y Race: C Location: [place] [address] Anesthesia Postop Eval I Sum Postop Eval Completion status Anesthesia document: Postop Eval 1 completed: Yes Anesthesia Postop Eval I Summary Anesthesia Postop Eval I Summary: Anesthesia Postop Eval I: Assessment Summary Airway patent Yes 06/18/24 08:02 [email or web address] Spontaneous unlabored Yes 06/18/24 08:02 [email or web address] respirations Mental status Asleep 06/18/24 08:02 [email or web address] nausea No 06/18/24 08:02 [email or web address] Vomiting No 06/18/24 08:02 [email or web address] Anesthesia Postop Eval I: Fluid Summary Crystalloid volume administer 30 06/18/24 08:02 [email or web address] (ml) Colloids volume administered ( ml) Blood Product volume administered (ml) Total IV fluid infused 30 06/18/24 08:02 [email or web address] Anesthesia Postop Eval I: Summary Notes Anesthesia Complication No 06/18/24 08:02 [email or web address] Anesthesia Complication Comment: Post-operative progress note Anesthesia: Postop Eval II Evaluation Mental status: Awake Pain Level: 0 nausea: No Vomiting: No 06/18/24818 Date Jovan Salinas Signature: Date CC: Signed Normal [facility] Surgery Specimen Level Wing 06-18-2024 Surgery Specimen Level IV Patient Age/Sex Location Account Attending Physician MYRANDA OLEA 63/M EN [id number] Mitchel Zuniga DO Specimen: [id number] Received: 06/18/24 Status: GERMAIN Tao Num: [id number] Spec Type: COLON BX Subm Dr: DO GIANNA Rodriguez OPERATION: Colonoscopy with biopsy of polyp PRE-OP DIAGNOSIS: Personal history of polyps TISSUE SUBMITTED: A- Transverse colon polyp biopsy, B- Splenic flexure polyp biopsy, C- Descending colon polyp biopsy, D- Rectum polyp biopsy MICROSCOPIC DIAGNOSIS A. Transverse colon polyp, biopsy: Fragments of tubular adenoma. Fragments of fecal material. B. Splenic flexure polyp, biopsy: Hyperplastic polyp. Fragments of fecal material. C. Descending colon polyp, biopsy: Tubular adenoma. D. Rectum polyp, biopsy: Inflammatory polyp. MIKE. 06/19/2024 MICROSCOPIC DESCRIPTION Slides are reviewed. GROSS DESCRIPTION A. Received in fixative is one container labeled with the patient's name and designated Transverse colon polyp biopsy. The specimen consists of multiple irregular fragments of light dsouza soft tissue that in aggregate measure 2.5 x 1.0 x 0.3 cm. The specimen is totally submitted in one cassette. B. Received in fixative is one container labeled with the patient's name and designated Splenic flexure polyp biopsy. The specimen consists of multiple irregular fragments of light dsouza soft tissue mixed with fecal material that in aggregate measure 1.0 x 0.5 x 0.1 cm. The specimen is totally submitted in one cassette. C. Received in fixative is one container labeled with the patient's name and designated Descending colon polyp biopsy. The specimen consists of one irregular fragment of light dsouza soft tissue that measures 0.3 x 0.3 x 0.1 cm. The specimen is totally submitted in one cassette. D. Received in fixative is one container labeled with the patient's name and designated Rectum polyp biopsy. The specimen consists of one irregular fragment of light dsouza soft tissue that measures 0.3 x 0.3 x 0.1 cm. The specimen is totally submitted in one cassette. 06/18/2024 TC:1 [facility]:[id number] Patient Age/Sex Location Account Attending Physician MYRANDA OLEA/Adi EN [id number] Mitchel Zuniga DO Signed (signature on file) Dr. Luis Wesley MD 06/19/24 1230 Normal [facility] Comment on above: Performed By: #### L 400.0001, L500.4050, L101.9900, L3100.1850, L100.9950, L504.2610, L503.0106, L503.6550, L3100.1350, L501.6710, L100.0100, L503.6030 #### [facility] [address] [place], [place], [address] Glucoseon 06-14-2024 Glucose [Mass/Vol] 125 mg/dL High 74-106 [facility] Comment on above: Result Comment: Fast ing Glucose result from 100 to 125 mg/dL suggests IMPAIRED HOMEOSTASIS per A.D.A. criteria. Performed By: #### L 501.9940 #### [facility] [address] [place], [place], [address] Lipid Profileon 06-14-2024 Cholesterol [Mass/Vol] 129 mg/dL Normal 200 [facility] Comment on above: Result Comment: <200 mg/dL Desirable 200-240 mg/dL Borderline >240 mg/dL High Risk Performed By: #### L 501.9940 #### [facility] [address] [place], [place], [address] Cholesterol in HDL [Mass/Vol] 34 mg/dL Low [facility] Comment on above: Result Comment: The drugs N-Acetylcysteine and Metamizole may falsely depress this assay. Reference Range HDL <40 mg/dL Low HDL Cholesterol HDL >or= 60 mg/dL High HDL Cholesterol Performed By: #### L 501.9940 #### [facility] [address] [place], [address] Cholesterol in LDL [Mass/Vol] 56 mg/dL Normal 0-130 [facility] Comment on above: Performed By: #### L 501.9940 #### [facility] [address] [place], [address] Cholesterol in VLDL [Mass/Vol] 39 mg/dL Normal 5-40 [facility] Comment on above: Performed By: #### L 501.9940 #### [facility] [address] [place], [address] Triglyceride [Mass/Vol] 197 mg/dL Normal [facility] Comment on above: Result Comment: The drugs N-Acetylcysteine and Metamizole may falsely depress this assay. Serum Triglycerides Reference Interval Normal <150 mg/dL Borderline high 150 - 199 mg/dL High 200 - 499 mg/dL Very High > or = 500 mg/dL Performed By: #### L 501.9940 #### [facility] [address] [place], [address] PLATELET COUNTon 06-09-2024 Platelets (Bld) [#/Vol] 262 10*3/uL Normal 150-450 [facility] Comment on above: Performed By: #### L 400.0001, L500.4050, L101.9900, L3100.1850, L100.9950, L504.2610, L503.0106, L503.6550, L3100.1350, L501.6710, L100.0100, L503.6030 #### [facility] [address] [place], [address] Chiropractic Reporton 2023 Chiropractic Report [facility] Chiropractic [facility] [place] [address] OFFICE VISIT Date of Service: 06/07/24 MR#: [id number] Acct: [id number] Name: MYRANDA OLEA Rep #: [id number] : 1960 Provider: MJ Pemberton Age/Sex: 63/M Location: [facility] Status: Signed Intake Vital Signs 03/29/24 15:27 05/15/24 11:18 Height 5 ft 6.5 in 5 ft 6.5 in Intake Visit Reasons: Back Pain Chief Complaint: Back pain/neck Is patient in pain?: Yes Pain scale (1-10): 7 Allergies diltiazem (From Cardizem) Allergy (Unknown, Verified 06/07/24 17:29) PT UNSURE OF REACTION PFSH Medical History Mixed hyperlipidemia Secondary male hypogonadism Secondary adrenal insufficiency Uncontrolled hypertension Acute sinusitis, unspecified Diabetes Secondary hypothyroidism Pancreatic calcification Wears glasses Diabetes Thyroid disease Rheumatoid arthritis Bladder disease Anemia Excessive bleeding Back pain Non-smoker CPAP (continuous positive airway pressure) dependence Leg cramps Hypertension History of colon polyps Chronic pancreatitis Lactose intolerance DJD (degenerative joint disease), lumbar Eosinophilic esophagitis Hypertriglyceridemia Bilateral cataracts Seasonal allergies Anemia Segmental and somatic dysfunction of lumbar region Segmental and somatic dysfunction of thoracic region Segmental and somatic dysfunction of cervical region Acute cholecystitis Obesity Hypertension Rheumatoid arthritis Surgical History History of pituitary surgery History of esophagogastroduodenosco py (EGD) ( 05/29/18) S/P colonoscopy ( 05/29/18) History of esophagogastroduodenosco py (EGD) Hx of tonsillectomy Hx of colonoscopy Hx of cholecystectomy S/P cholecystectomy Family History Mother Cancer Hypertension Father Diabetes Social History household members: spouse current occupational status: employed current occupation: [employer] Smoking Status: Never smoker substance use type: does not use HPI Back Pain Chief Complaint: Neck and Low Back Pain Visit Number: 9 Details: MYRANDA OLEA is a 63 year old M here to f/u on ongoing neck and low back discomfort. He complains of neck pain and stiffness that is equal bilaterally, but denies any headache or radiating into the arms. He does state that he has limited ROM when turning his head. Rates his neck pain at a 8/10. He also c/o low back pain and tightness that is equal bilaterally, this pain is a 7/10. Pt. continues to care for his who previously had surgery, as well as extra help around the house. Pt. denies new injury, numbness or tingling at this time. Graeme reports chiropractic adjustments are effective in relieving some of his pain but it gradually returns. Location: Neck, low back Duration: Frequent Aggravating or associated factors: Bending, reaching, lifting Relieving factors: Chiro Pain Quality: aching, dull and cramping Exam Musc General: Yes normal posture, normal gait, joint tenderness and decreased range of motion Cervical Spine: Yes loss of normal cervical lordosis, Yes cervical muscular tenderness right greater than left lower trapezius, Yes cervical spasm (scalene, trap) right greater than left lower trapezius and paracervical muscles and Yes misalignment misalignment: C5 and C6 Thoracic/Lumber: Yes thoracic and lumbar spine normal to inspection, Yes paraspinal tenderness bilaterally in the upper thoracic and in the mid thoracic and on the left greater than right (lumbopelvic), Yes thoraco-lumbar spasm bilaterally (trap, QL) in the upper thoracic (trap, levator) and in the mid thoracic and on the left greater than right (paraspinal L3-S1, glute med) and Yes misalignment T1, T2, T3, T6, T7, T8, L3, L4, L5 and LIL Sacroiliac joints: on the left tender to palpation Office Procedures Procedures - Chiropractic Procedures Manipulation: Cervical C6, Lumbar L3, Thoracic T3 and Pelvis LIL Manipulation: 3-4 regions Patient Response: positive Assessment and Plan Assessment and Plan (1) Segmental and somatic dysfunction of cervical region: Status: Acute (2) Segmental and somatic dysfunction of thoracic region: Status: Acute (3) Segmental and somatic dysfunction of lumbar region: Status: Acute (4) DJD (degenerative joint disease), lumbar: Status: Chronic Qualifiers: 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 Normal [facility] Chiropractic Reporton 2023 Chiropractic Report [facility] Chiropractic [address] [place] [address] OFFICE VISIT Date of Service: 05/10/24 MR#: [id number] Acct: [id number] Name: MYRANDA OLEA Rep #: [id number] : 1960 Provider: MJ Pemberton Age/Sex: 63/M Location[place] [facility] [place]: Signed Intake Vital Signs 12/15/23 15:20 03/29/24 15:27 Height 5 ft 6.5 in 5 ft 6.5 in Intake Visit Reasons: Back Pain Chief Complaint: Back pain Is patient in pain?: Yes Pain scale (1-10): 8 Allergies diltiazem (From Cardizem) Allergy (Unknown, Verified 05/10/24 17:33) Unknown Milk Containing Products (Dairy) (Milk Containing Products) Allergy (Verified 05/10/24 17:33) Diarrhea PFSH Medical History Mixed hyperlipidemia Secondary male hypogonadism Secondary adrenal insufficiency Uncontrolled hypertension Acute sinusitis, unspecified Diabetes Secondary hypothyroidism Pancreatic calcification Wears glasses Diabetes Thyroid disease Rheumatoid arthritis Bladder disease Anemia Excessive bleeding Back pain Non-smoker CPAP (continuous positive airway pressure) dependence Leg cramps Hypertension History of colon polyps Chronic pancreatitis Lactose intolerance DJD (degenerative joint disease), lumbar Eosinophilic esophagitis Hypertriglyceridemia Bilateral cataracts Seasonal allergies Anemia Segmental and somatic dysfunction of lumbar region Segmental and somatic dysfunction of thoracic region Segmental and somatic dysfunction of cervical region Acute cholecystitis Obesity Hypertension Rheumatoid arthritis Surgical History History of pituitary surgery History of esophagogastroduodenosco py (EGD) ( 05/29/18) S/P colonoscopy ( 05/29/18) History of esophagogastroduodenosco py (EGD) Hx of tonsillectomy Hx of colonoscopy Hx of cholecystectomy S/P cholecystectomy Family History Mother Cancer Hypertension Father Diabetes Social History Smoking Status: Never smoker HPI Back Pain Chief Complaint: Neck and Low Back Pain Visit Number: 8 Details: MYRANDA OLEA is a 63 year old M here to f/u on ongoing neck and low back discomfort. He complains of neck pain and stiffness that is equal bilaterally, states it was a very stressful day and that contributed to his discomfort. Rates his neck pain at a 8/10. He also c/o low back pain that is equal bilaterally, this pain is a 7/10. Pt. continues to care for his who recently had back surgery and he is having to do all the cooking and cleaning. Pt. denies new injury, numbness or tingling at this time. Graeme reports chiropractic adjustments are effective in relieving some of his pain but it gradually returns. Location: Neck, low back Duration: Frequent Aggravating or associated factors: Bending, reaching, lifting Relieving factors: Chiro Pain Quality: aching, dull and cramping Exam Musc General: Yes normal posture, normal gait, joint tenderness and decreased range of motion Cervical Spine: Yes loss of normal cervical lordosis, Yes cervical muscular tenderness right greater than left lower trapezius, Yes cervical spasm (scalene, trap) right greater than left lower trapezius and paracervical muscles and Yes misalignment misalignment: C5 and C6 Thoracic/Lumber: Yes thoracic and lumbar spine normal to inspection, Yes paraspinal tenderness bilaterally in the upper thoracic and in the mid thoracic and on the left greater than right (lumbopelvic), Yes thoraco-lumbar spasm bilaterally (trap, QL) in the upper thoracic (trap, levator) and in the mid thoracic and on the left greater than right (paraspinal L3-S1, glute med) and Yes misalignment T1, T2, T3, T6, T7, T8, L3, L4, L5 and LIL Sacroiliac joints: on the left tender to palpation Office Procedures Procedures - Chiropractic Procedures Manipulation: Cervical C6, Lumbar L3, Thoracic T3 and Pelvis LIL Manipulation: 3-4 regions Patient Response: positive Assessment and Plan Assessment and Plan (1) Segmental and somatic dysfunction of cervical region: Status: Acute (2) Segmental and somatic dysfunction of thoracic region: Status: Acute (3) Segmental and somatic dysfunction of lumbar region: Status: Acute (4) DJD (degenerative joint disease), lumbar: Status: Chronic Qualifiers: Spinal osteoarthritis complication: without myelopathy or radiculopathy Qualified Code(s): M47.816 - Spondylosis without myelopathy or radiculopathy, lumbar region (5) Rheumatoid arthritis: Status: Chronic Qualifiers: Rheumatoid arthritis location: multiple sites Rheumatoid factor presence: unspecified presence Qualified Code(s): M06.9 - Rheumatoi (more content not included)... Normal [facility] CBC W/Diff, Automatedon 08-2 Absolute Lymph 1.75 X10 3/uL Normal 0.83-4.51 [facility] Comment on above: Performed By: #### L 400.0001, L500.4050, L101.9900, L3100.1850, L100.9950, L504.2610, L503.0106, L503.6550, L3100.1350, L501.6710, L100.0100, L503.6030 #### [facility] [address] [place], [address] Absolute Neut 2.6 X10 3/uL Normal 2.0-7.7 [facility] Comment on above: Performed By: #### L 400.0001, L500.4050, L101.9900, L3100.1850, L100.9950, L504.2610, L503.0106, L503.6550, L3100.1350, L501.6710, L100.0100, L503.6030 #### [facility] [address] [place], [address] Basophils/100 WBC (Bld) 1.5 % High 0-1 [facility] Comment on above: Performed By: #### L 400.0001, L500.4050, L101.9900, L3100.1850, L100.9950, L504.2610, L503.0106, L503.6550, L3100.1350, L501.6710, L100.0100, L503.6030 #### [facility] [address] [place], [address] Eosinophils/100 WBC (Bld) 3.8 % Normal 0-5 [facility] Comment on above: Performed By: #### L 400.0001, L500.4050, L101.9900, L3100.1850, L100.9950, L504.2610, L503.0106, L503.6550, L3100.1350, L501.6710, L100.0100, L503.6030 #### [facility] [address] [place], [place], [id number] (987) Erythrocyte distribution width (RBC) [Ratio] 14.6 % Normal 11.6-14.6 [facility] Comment on above: Performed By: #### L 400.0001, L500.4050, L101.9900, L3100.1850, L100.9950, L504.2610, L503.0106, L503.6550, L3100.1350, L501.6710, L100.0100, L503.6030 #### [facility] [address] [place], [place], [id number] (689) Hematocrit (Bld) [Volume fraction] 37.1 % Low 40-54 [facility] Comment on above: Performed By: #### L 400.0001, L500.4050, L101.9900, L3100.1850, L100.9950, L504.2610, L503.0106, L503.6550, L3100.1350, L501.6710, L100.0100, L503.6030 #### [facility] [address] [place], [place], [id number] (167) Hemoglobin (Bld) [Mass/Vol] 11.8 g/dL Low 13.0-16.5 [facility] Comment on above: Performed By: #### L 400.0001, L500.4050, L101.9900, L3100.1850, L100.9950, L504.2610, L503.0106, L503.6550, L3100.1350, L501.6710, L100.0100, L503.6030 #### [facility] [address] [place], [place], [id number] (713) IG% 1.300 High 0.0-0.9 [facility] Comment on above: Result Comment: IG% - Immature Granulocytes (promyelocytes, myelocytes and metamyelocytes) > 1% indicates that a LEFT SHIFT is Present. Performed By: #### L 400.0001, L500.4050, L101.9900, L3100.1850, L100.9950, L504.2610, L503.0106, L503.6550, L3100.1350, L501.6710, L100.0100, L503.6030 #### [facility] [address] [place], [address] (245) Lymphocytes/100 WBC (Bld) 33.2 % Normal 19-41 [facility] Comment on above: Performed By: #### L 400.0001, L500.4050, L101.9900, L3100.1850, L100.9950, L504.2610, L503.0106, L503.6550, L3100.1350, L501.6710, L100.0100, L503.6030 #### [facility] [address] [place], [place], [phone] (706) MCH (RBC) [Entitic mass] 29.1 pg Normal 27.0-32.0 [facility] Comment on above: Performed By: #### L 400.0001, L500.4050, L101.9900, L3100.1850, L100.9950, L504.2610, L503.0106, L503.6550, L3100.1350, L501.6710, L100.0100, L503.6030 #### [facility] [address] [place], [address] MCHC (RBC) [Mass/Vol] 31.8 g/dL Low 32-36 [facility] Comment on above: Performed By: #### L 400.0001, L500.4050, L101.9900, L3100.1850, L100.9950, L504.2610, L503.0106, L503.6550, L3100.1350, L501.6710, L100.0100, L503.6030 #### [facility] [address] [place], [address] MCV (RBC) [Entitic vol] 91.6 fL Normal 80-94 [facility] Comment on above: Performed By: #### L 400.0001, L500.4050, L101.9900, L3100.1850, L100.9950, L504.2610, L503.0106, L503.6550, L3100.1350, L501.6710, L100.0100, L503.6030 #### [facility] [address] [place], [address] Monocytes/100 WBC (Bld) 11.8 % High 0-10 [facility] Comment on above: Performed By: #### L 400.0001, L500.4050, L101.9900, L3100.1850, L100.9950, L504.2610, L503.0106, L503.6550, L3100.1350, L501.6710, L100.0100, L503.6030 #### [facility] [address] [place], [address] Neutrophils/100 WBC (Bld) 48.4 % Normal 47-70 [facility] Comment on above: Performed By: #### L 400.0001, L500.4050, L101.9900, L3100.1850, L100.9950, L504.2610, L503.0106, L503.6550, L3100.1350, L501.6710, L100.0100, L503.6030 #### [facility] [address] [place], [address] Nucleated RBC (Bld) [#/Vol] 0 10*3/uL Normal 0-5 [facility] Comment on above: Performed By: #### L 400.0001, L500.4050, L101.9900, L3100.1850, L100.9950, L504.2610, L503.0106, L503.6550, L3100.1350, L501.6710, L100.0100, L503.6030 #### [facility] [address] [place], [address] Platelet mean volume (Bld) [Entitic vol] 9.6 fL Normal 6.2-12.0 [facility] Comment on above: Performed By: #### L 400.0001, L500.4050, L101.9900, L3100.1850, L100.9950, L504.2610, L503.0106, L503.6550, L3100.1350, L501.6710, L100.0100, L503.6030 #### [facility] [address] [place], [address] Platelets (Bld) [#/Vol] 261 10*3/uL Normal 150-450 [facility] Comment on above: Performed By: #### L 400.0001, L500.4050, L101.9900, L3100.1850, L100.9950, L504.2610, L503.0106, L503.6550, L3100.1350, L501.6710, L100.0100, L503.6030 #### [facility] [address] [place], [address] RBC (Bld) [#/Vol] 4.05 10*6/uL Low 4.6-6.2 [facility] Comment on above: Performed By: #### L 400.0001, L500.4050, L101.9900, L3100.1850, L100.9950, L504.2610, L503.0106, L503.6550, L3100.1350, L501.6710, L100.0100, L503.6030 #### [facility] [address] [place], [place], [address] RDW SD 48.9 fl High 35.1-43.9 [facility] Comment on above: Performed By: #### L 400.0001, L500.4050, L101.9900, L3100.1850, L100.9950, L504.2610, L503.0106, L503.6550, L3100.1350, L501.6710, L100.0100, L503.6030 #### [facility] [address] [place], [place], [id number] WBC (Bld) [#/Vol] 5.3 10*3/uL Normal 4.4-11.0 [facility] Comment on above: Performed By: #### L 400.0001, L500.4050, L101.9900, L3100.1850, L100.9950, L504.2610, L503.0106, L503.6550, L3100.1350, L501.6710, L100.0100, L503.6030 #### [facility] [address] [address] [place], [place], [id number] [facility] Telephone ([facility]) -------- MYRANDA OLEA ([id number]) 1960 M Date Time Provider Department 01/24/24 MONIKA PATEL [facility] During your visit today, we recorded the following information about you: Monika Patel RN 01/24/2024 11:16 AM Signed Unable to reach patient by phone at this time. Left voicemail with contact information for call back. Allergies As of Date: 01/24/2024 Noted Allergy Reaction MILK 10/25/2012 8 - GI Upset Comments: cough, diarrhea, scratchy throat Date Reviewed: 10/13/2023 Reviewed by: Hoa Alcala LPN - Fully Assessed Reason for Visit: Appointment [186] Prescriptions as of 01/24/2024 - TRULICITY 0.75 mg/0.5 mL pen injector - benzonatate (TESSALON PERLES) 100 mg capsule Take 1 capsule by mouth three times a day as needed for cough. - glimepiride (AMARYL) 2 mg tablet Take by mouth. - mupirocin (CENTANY) 2 % ointment Use as directed twice daily. Dispense 22 gm tubes. 7 tubes = 1mos supply - sodium chloride 0.9 % IRRIGATION Irrigate as directed each nostril with 60cc of solution twice daily. Dispense one liter bottles - hydrocortisone (CORTEF) 5 mg tablet Take 3 tablets daily according to the steroid weaning schedule - potassium chloride ER (KLOR-CON) 20 mEq tablet Take 1 tablet by mouth twice daily. - hydrocortisone (CORTEF) 10 mg tablet Take 1 tablet by mouth as directed. Take 2 tabs in am and 1 tab at 2pm - apremilast (OTEZLA) 30 mg tablet Take 1 tablet by mouth twice daily. PLEASE DO NOT TAKE THIS MEDICATION UNTIL CLEARED TO DO SO BY ENT AT YOUR FOLLOW UP APPOINTMENT FOR WOUND CHECK - acetaminophen (TYLENOL) 500 mg tablet 2 tablets by ORAL/FEEDING TUBE route every 6 hours as needed for pain. - senna-docusate (SENNA-S) 8.6-50 mg per tablet 1 tablet by ORAL/FEEDING TUBE route twice daily. - sodium chloride 0.65 % nasal spray Use 2 Sprays in each nostril four times daily. - hydrocortisone 2.5 % cream Apply 1 application to affected area twice daily as needed (Skin irritation). - mirabegron (MYRBETRIQ) 50 mg Tb24 Take 50 mg by mouth once daily. - oxybutynin ER (DITROPAN XL) 10 mg 24 hr tablet Take 10 mg by mouth once daily. - cloNIDine HCl (CATAPRES) 0.2 mg tablet Take 0.2 mg by mouth three times daily. - Lactobacillus acidophilus (PROBIOTIC) 10 billion cell cap Take 1 capsule by mouth once daily. - loratadine (CLARITIN) 10 mg tablet Take 10 mg by mouth once daily. - finasteride 5 mg tablet Take 5 mg by mouth once daily. - hydrALAZINE 100 mg tablet Take 100 mg by mouth three times daily. - carvedilol 25 mg tablet Take 25 mg by mouth twice daily with meals. - Levothyroxine 50 mcg cap Take 1 capsule by mouth once daily. - lisinopril 40 mg tablet Take 40 mg by mouth once daily. Problem List As Of Date 01/24/2024 Noted Resolved Anemia, unspecified [D64.9] 06/09/2012 Leukopenia [D72.819] 11/24/2012 03/15/2014 Eosinophilic esophagitis [K20.0] 05/07/2015 Essential hypertension [I10] 05/07/2015 Hypothyroid [E03.9] 05/07/2015 Prediabetes [R73.03] 06/06/2016 Sleep apnea [G47.30] 05/07/2015 Rheumatoid arthritis (HCC) [M06.9] 06/22/2017 OAB (overactive bladder) [N32.81] 01/26/2023 BPH (benign prostatic hyperplasia) [N40.0] 01/26/2023 Obesity (BMI 35.0-39.9 without comorbidity) [E6*01/26/2023 Pituitary adenoma (HCC) [D35.2] 02/03/2023 Hypokalemia [E87.6] 02/04/2023 Encounter Status:Closed by MONIKA PATEL on 01/24/24 [facility] 01-23-2024 CNPN Telephone ([facility]) -------- MYRANDA OLEA ([id number]) 1960 M Date Time Provider Department 01/23/24 DOLLY LUCAS [facility] During your visit today, we recorded the following information about you: Dolly Lucas APRN.CNP 01/23/2024 9:21 AM Signed Reviewed case with Dr. Weaver and he is recommending patient see Dr. Causey to see if cortef can be weaned. Left voicemail for patient to call back. VIKY Acevedo Beth, APRN.CNP 01/23/2024 9:51 AM Signed Per the patient was weaned from cortef, but become symptomatic with adrenal insufficiency. Goal with OSH obstetrics gynecology md is to trial the wean again. Patient declines referral to see Dr. Job Tracy. Dolly Lucas APRN.CNP Allergies As of Date: 01/23/2024 Noted Allergy Reaction MILK 10/25/2012 8 - GI Upset Comments: cough, diarrhea, scratchy throat Date Reviewed: 10/13/2023 Reviewed by: Hoa Alcala LPN - Fully Assessed Reason for Visit: Results [95] Prescriptions as of 01/23/2024 - TRULICITY 0.75 mg/0.5 mL pen injector - benzonatate (TESSALON PERLES) 100 mg capsule Take 1 capsule by mouth three times a day as needed for cough. - glimepiride (AMARYL) 2 mg tablet Take by mouth. - mupirocin (CENTANY) 2 % ointment Use as directed twice daily. Dispense 22 gm tubes. 7 tubes = 1mos supply - sodium chloride 0.9 % IRRIGATION Irrigate as directed each nostril with 60cc of solution twice daily. Dispense one liter bottles - hydrocortisone (CORTEF) 5 mg tablet Take 3 tablets daily according to the steroid weaning schedule - potassium chloride ER (KLOR-CON) 20 mEq tablet Take 1 tablet by mouth twice daily. - hydrocortisone (CORTEF) 10 mg tablet Take 1 tablet by mouth as directed. Take 2 tabs in am and 1 tab at 2pm - apremilast (OTEZLA) 30 mg tablet Take 1 tablet by mouth twice daily. PLEASE DO NOT TAKE THIS MEDICATION UNTIL CLEARED TO DO SO BY ENT AT YOUR FOLLOW UP APPOINTMENT FOR WOUND CHECK - acetaminophen (TYLENOL) 500 mg tablet 2 tablets by ORAL/FEEDING TUBE route every 6 hours as needed for pain. - senna-docusate (SENNA-S) 8.6-50 mg per tablet 1 tablet by ORAL/FEEDING TUBE route twice daily. - sodium chloride 0.65 % nasal spray Use 2 Sprays in each nostril four times daily. - hydrocortisone 2.5 % cream Apply 1 application to affected area twice daily as needed (Skin irritation). - mirabegron (MYRBETRIQ) 50 mg Tb24 Take 50 mg by mouth once daily. - oxybutynin ER (DITROPAN XL) 10 mg 24 hr tablet Take 10 mg by mouth once daily. - cloNIDine HCl (CATAPRES) 0.2 mg tablet Take 0.2 mg by mouth three times daily. - Lactobacillus acidophilus (PROBIOTIC) 10 billion cell cap Take 1 capsule by mouth once daily. - loratadine (CLARITIN) 10 mg tablet Take 10 mg by mouth once daily. - finasteride 5 mg tablet Take 5 mg by mouth once daily. - hydrALAZINE 100 mg tablet Take 100 mg by mouth three times daily. - carvedilol 25 mg tablet Take 25 mg by mouth twice daily with meals. - Levothyroxine 50 mcg cap Take 1 capsule by mouth once daily. - lisinopril 40 mg tablet Take 40 mg by mouth once daily. Problem List As Of Date 01/23/2024 Noted Resolved Anemia, unspecified [D64.9] 06/09/2012 Leukopenia [D72.819] 11/24/2012 03/15/2014 Eosinophilic esophagitis [K20.0] 05/07/2015 Essential hypertension [I10] 05/07/2015 Hypothyroid [E03.9] 05/07/2015 Prediabetes [R73.03] 06/06/2016 Sleep apnea [G47.30] 05/07/2015 Rheumatoid arthritis (HCC) [M06.9] 06/22/2017 OAB (overactive bladder) [N32.81] 01/26/2023 BPH (benign prostatic hyperplasia) [N40.0] 01/26/2023 Obesity (BMI 35.0-39.9 without comorbidity) [E6*01/26/2023 Pituitary adenoma (HCC) [D35.2] 02/03/2023 Hypokalemia [E87.6] 02/04/2023 Encounter Status:Closed by DOLLY LUCAS on 01/23/24 Normal [facility] MR Pituitary and Sella turci ca WO and W contrast Wing 12-20-2023 [facility] Basophil percentageOrdered B y: ONION FARMER Kylie Mora on 12-15-2023 Basophil percentage 3.65 ng/mL 0.0-4.0 [facility] Comment on above: This test was perfor med using the TPSA assay method for theLela chemistry system. Values obtained with differentassay methods cannot be used interchangably.When changing PSA assays in the course of monitoring apatient, additional sequential testing should be carriedout to confirm baseline values. Laboratory - Hematology and Cell countson 12-15-2023 HbA1c (Bld) [Mass fraction] 6.0 % 4.2-6.3 [facility] INFLUENZA A&B MOLECULAR (POC )on 10-13-2023 Flu A (POCT) Negative Negative [facility] Flu B (POCT) Negative Negative [facility] Procedural Control Valid [facility] Laboratory - Hematology and Cell countson 09-15-2023 HbA1c (Bld) [Mass fraction] 7.5 % 4.2-6.3 [facility] Absolute lymphocyte countOrd ered By: Argenis Varela on 05-14-2023 Lymphocytes Auto (Unsp spec) [#/Vol] 1.46 10*3/uL 0.83-4.51 [facility] Basophil percentageOrdered B y: Argenis Varela on 05-14-2023 Basophils/100 WBC (Bld) 1.3 % 0-1 [facility] Bilirubin [Mass/Vol] 0.70 mg/dL 0.20-1.00 [facility] Comment on above: For patients on eltr ombopag therapy, use of Dimension [place] TBIL is not recommended. Chloride [Moles/Vol] 102 mmol/L 98-107 [facility] Eosinophils/100 WBC (Bld) 5.9 % 0-5 [facility] Glucose [Mass/Vol] 252 mg/dL 74-106 [facility] Comment on above: Glucose result great er than or equal to 200 mg/dLsuggests DIABETES MELLITUS per A.D.A. criteria. Neutrophils (Bld) [#/Vol] 3.4 10*3/uL 2.0-7.7 [facility] Neutrophils/100 WBC (Bld) 56.3 % 47-70 [facility] Potassium [Moles/Vol] 3.4 mmol/L 3.5-5.1 [facility] Protein [Mass/Vol] 7.2 g/dL 6.4-8.2 [facility] Sodium [Moles/Vol] 135 mmol/L 136-145 [facility] WBC (Bld) [#/Vol] 6.0 10*3/uL 4.4-11.0 [facility] Blood erythrocytes count (nu mber/volume)Ordered By: Argenis Varela on 05-14-2023 RBC (Bld) [#/Vol] 4.62 10*6/uL 4.6-6.2 [facility] Blood hemoglobin measurement (mass/volume)Ordered By: Argenis Varela on 05-14-2023 Hemoglobin (Bld) [Mass/Vol] 12.7 g/dL 13.0-16.5 [facility] Blood lymphocytes/100 leukoc ytesOrdered By: Argenis Varela on 05-14-2023 Lymphocytes/100 WBC (Bld) 24.4 % 19-41 [facility] Blood monocytes/100 leukocyt esOrdered By: Argenis Varela on 05-14-2023 Monocytes/100 WBC (Bld) 9.9 % 0-10 [facility] Blood platelet mean volumeOr dered By: Argenis Varela on 05-14-2023 Platelet mean volume (Bld) [Entitic vol] 10.3 fL 6.2-12.0 [facility] Determination of erythrocyte mean corpuscular volume (MCV)Ordered By: Argenis Varela on 05-14-2023 MCV (RBC) [Entitic vol] 85.1 fL 80-94 [facility] Hematocrit Auto (Bld) [Volum e fraction]Ordered By: Argenis Varela on 05-14-2023 Hematocrit (Bld) [Volume fraction] 39.3 % 40-54 [facility] Laboratory - Chemistry and C hemistry - challengeOrdered By: Argenis Varela on 05-14-2023 ALP [Catalytic activity/Vol] 95 U/L 45-117 [facility] ALT [Catalytic activity/Vol] 36 U/L 16-61 [facility] CO2 [Moles/Vol] 29.0 mmol/L 21.0-32.0 [facility] Globulin (S) [Mass/Vol] 3.4 g/dL 2.2-4.2 [facility] Urea nitrogen/Creatinine [Mass ratio] 12.4 mg/mg 10-20 [facility] Laboratory - Hematology and Cell countsOrdered By: Argenis Varela on 05-14-2023 Erythrocyte distribution width (RBC) [Entitic vol] 41.9 fL 35.1-43.9 [facility] Erythrocyte distribution width (RBC) [Ratio] 13.6 % 11.6-14.6 [facility] Immature granulocytes/100 WBC (Bld) 2.200 % 0.0-0.9 [facility] Comment on above: IG% - Immature Granu locytes (promyelocytes, myelocytes and metamyelocytes) > 1% indicates that a LEFT SHIFT is Present. MCH (RBC) [Entitic mass] 27.5 pg 27.0-32.0 [facility] Nucleated RBC/100 WBC (Bld) [Ratio] 0 % 0-5 [facility] MCHC Auto (RBC) [Mass/Vol]Or dered By: Argenis Varela on 05-14-2023 MCHC (RBC) [Mass/Vol] 32.3 g/dL 32-36 [facility] No Panel InformationOrdered By: Argenis Varela on 05-14-2023 Estimated GFR (MDRD) Amer 84 mL/min >60 [facility] Comment on above: GFR Calc Estimated GFR (MDRD) Non-Af Amer 70 mL/min >60 [facility] Comment on above: Non- GFR Calc Platelets bldOrdered By: Tyler Varela on 05-14-2023 Platelets (Bld) [#/Vol] 308 10*3/uL 150-450 [facility] Serum or plasma albumin brenda urement (mass/volume)Ordered By: Argenis Varela on 05-14-2023 Albumin [Mass/Vol] 3.8 g/dL 3.2-5.0 [facility] Serum or plasma albumin/glob ulin mass ratioOrdered By: Argenis Varela on 05-14-2023 Albumin/Globulin [Mass ratio] 1.1 {ratio} 0.9-2.4 [facility] Serum or plasma calcium brenda urement (mass/volume)Ordered By: Argenis Varela on 05-14-2023 Calcium [Mass/Vol] 8.8 mg/dL 8.5-10.1 [facility] Serum or plasma creatinine m easurement (mass/volume)Ordered By: Argenismiguel ángel Varela on 05-14-2023 Creatinine [Mass/Vol] 1.13 mg/dL 0.70-1.30 [facility] Comment on above: The validity of the calculated GFR & GFRAA in patients over 70 years has not been determined. Clinical correlation is essential. Serum or plasma urea nitroge n measurement (mass/volume)Ordered By: Argenismiguel ángel Varela on 05-14-2023 Urea nitrogen [Mass/Vol] 14 mg/dL 7-18 [facility] Thin prep Papanicolaou smear with manual screeningOrdered By: [facility] [place] Nichole on 05-14-2023 Thin prep Papanicolaou smear with manual screening 18 U/L 15-37 [facility] Thin prep Papanicolaou smear with manual screening 4 5-15 [facility] Laboratory - Hematology and Cell countson 04-01-2023 HbA1c (Bld) [Mass fraction] 7.0 % 4.2-6.3 [facility] MRI PITUITARY WO/W IVCONon 0 03-16-2023 MRI PITUITARY WO/W IVCON * * *Final Report* * * DATE OF EXAM: Mar 16 2023 6:16PM [facility] 0314 - MRI PITUITARY WO/W IVCON / PROCEDURE REASON: D35.2-Pituitary adenoma (HCC) * * * * Physician Interpretation * * * * EXAMINATION: MRI PITUITARY WO/W IVCON CLINICAL HISTORY: 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 TECHNIQUE: High resolution sagittal and coronal T1, coronal T2, and gadolinium enhanced, fat-suppressed sagittal and coronal T1-weighted images of the pituitary region. Contrast: 10 mL Dotarem IV COMPARISON: 01/26/2023 and 12/20/2022 RESULT: Postop Changes: There are bony defects in the nasal septum, the margins of the sphenoid and posterior ethmoid air cells and the floor of the sella from a prior transphenoidal procedure. There is thick irregular enhancement of the mucosal flap with gadolinium along the planum sphenoidale, floor of the sella and margins of the sphenoid sinuses. Adenohypophysis: The large bilobed extra-axial soft tissue mass within the sella and subjacent sphenoid sinuses has been decompressed and likely resected in entirety. There is residual confluent soft tissue within the sella which is now hypointense on T2 in contrast to the heterogeneous hyperintensity preoperatively and the residual tissue enhances more heterogeneously than the original mass, suggesting the mass has been resected in entirety and the current findings reflect postop granulation tissue. Neurohypophysis: Posterior pituitary gland is again noted to be situated at the caudal extent of the infundibulum. Suprasellar Region: There is no evidence of a suprasellar mass. There is only slight caudal tethering of the cisternal segment of the left optic nerve. Cavernous Sinuses: The cavernous sinuses are normal in appearance. A normal flow void is noted in the carotid siphons suggesting patency by spin echo criteria. Brain Parenchyma: The overlying hypothalamus appears to be within normal limits. A few scattered punctate and linear foci of hyperintensity are noted in the visualized supratentorial white matter on T2 which may represent prominent perivascular spaces. The visualized brain parenchyma is otherwise within normal limits of signal intensity and morphology. Skull Base: No evidence of a marrow replacement process in the underlying skull base. Retained fluid is noted in the residual sphenoid sinuses, prominent lobulated mucosal thickening is noted in the maxillary sinuses and moderate mucosal thickening is noted in the residual posterior ethmoid air cells compatible with the recent manipulation. IMPRESSION: Postop changes with findings suggesting gross total resection of the pituitary macroadenoma since 12/20/2022 as outlined above. [employer] Building: JONAS Transcribe Date/Time: Mar 17 2023 7:32A Dictated by : REBEL MACDONALD MD This examination was interpreted and the report reviewed and electronically signed by: REBEL MACDONALD MD on Mar 17 2023 7:47AM EST [id number] [facility] Basic metabolic 2000 panelon 02-23-2023 Anion gap [Moles/Vol] 12 mmol/L 9 - 18 mmol/L [facility] Calcium [Mass/Vol] 9.1 mg/dL 8.5 - 10. 2 mg/dL [facility] Chloride [Moles/Vol] 101 mmol/L 97 - 10 5 mmol/L [facility] CO2 [Moles/Vol] 26 mmol/L 22 - 30 mmol/L [facility] Creatinine [Mass/Vol] 1.17 mg/dL 0.73 - 1.22 mg/dL [facility] Estimated Glomerular Filtration Rate 70 mL/min/1.73m >=60 mL/min/1.7 3m [facility] Glucose [Mass/Vol] 131 mg/dL High 74 - 99 mg/dL [facility] Potassium [Moles/Vol] 3.3 mmol/L Low 3.7 - 5.1 mmol/L [facility] Sodium [Moles/Vol] 139 mmol/L 136 - 144 mmol/L [facility] Urea nitrogen [Mass/Vol] 11 mg/dL 9 - 24 mg/dL [facility] CBC panel Auto (Bld)on 02-23 Erythrocyte distribution width (RBC) [Ratio] 13.5 % 11.5 - 15.0 % [facility] Hematocrit (Bld) [Volume fraction] 36.6 % Low 39.0 - 51.0 % [facility] Hemoglobin (Bld) [Mass/Vol] 12.1 g/dL Low 13.0 - 17.0 g/dL [facility] MCH (RBC) [Entitic mass] 28.1 pg 26.0 - 34.0 pg [facility] MCHC (RBC) [Mass/Vol] 33.1 g/dL 30.5 - 36.0 g/dL [facility] MCV (RBC) [Entitic vol] 85.1 fL 80.0 - 100.0 fL [facility] Nucleated RBC (Bld) [#/Vol] <0.01 k/uL [facility] Platelet mean volume (Bld) [Entitic vol] 9.8 fL 9.0 - 12.7 fL [facility] Platelets (Bld) [#/Vol] 295 10*3/uL 150 - 400 k/uL [facility] RBC (Bld) [#/Vol] 4.30 10*6/uL 4.20 - 6.00 m/uL [facility] WBC (Bld) [#/Vol] 5.63 10*3/uL 3.70 - 11.00 k/uL [facility] MRI PITUITARY WO/W IVCONon 0 - [facility] Absolute lymphocyte countOrd ered By: Dr. Varela on 11-23-2022 Lymphocytes Auto (Unsp spec) [#/Vol] 1.70 10*3/uL 0.83-4.51 [facility] Basophil percentageOrdered B y: Dr. Varela on 11-23-2022 Basophils/100 WBC (Bld) 1.3 % 0-1 [facility] Bilirubin [Mass/Vol] 0.60 mg/dL 0.20-1.00 [facility] Comment on above: For patients on eltr ombopag therapy, use of Dimension [place] TBIL is not recommended. Chloride [Moles/Vol] 103 mmol/L 98-107 [facility] Eosinophils/100 WBC (Bld) 3.5 % 0-5 [facility] Glucose [Mass/Vol] 118 mg/dL 74-106 [facility] Comment on above: Fasting Glucose resu lt from 100 to 125 mg/dL suggests IMPAIRED HOMEOSTASIS per A.D.A. criteria. Neutrophils (Bld) [#/Vol] 4.0 10*3/uL 2.0-7.7 [facility] Neutrophils/100 WBC (Bld) 58.2 % 47-70 [facility] Potassium [Moles/Vol] 3.7 mmol/L 3.5-5.1 [facility] Protein [Mass/Vol] 7.1 g/dL 6.4-8.2 [facility] Sodium [Moles/Vol] 137 mmol/L 136-145 [facility] WBC (Bld) [#/Vol] 6.9 10*3/uL 4.4-11.0 [facility] Blood erythrocytes count (nu mber/volume)Ordered By: Dr. Varela on 11-23-2022 RBC (Bld) [#/Vol] 4.58 10*6/uL 4.6-6.2 [facility] Blood hemoglobin measurement (mass/volume)Ordered By: Dr. Varela on 11-23-2022 Hemoglobin (Bld) [Mass/Vol] 13.1 g/dL 13.0-16.5 [facility] Blood lymphocytes/100 leukoc ytesOrdered By: Dr. Varela on 11-23-2022 Lymphocytes/100 WBC (Bld) 24.6 % 19-41 [facility] Blood monocytes/100 leukocyt esOrdered By: Dr. Varela on 11-23-2022 Monocytes/100 WBC (Bld) 11.7 % 0-10 [facility] Blood platelet mean volumeOr dered By: Dr. Varela on 11-23-2022 Platelet mean volume (Bld) [Entitic vol] 9.9 fL 6.2-12.0 [facility] Determination of erythrocyte mean corpuscular volume (MCV)Ordered By: Dr. Varela on 11-23-2022 MCV (RBC) [Entitic vol] 91.0 fL 80-94 [facility] Hematocrit Auto (Bld) [Volum e fraction]Ordered By: Dr. Varela on 11-23-2022 Hematocrit (Bld) [Volume fraction] 41.7 % 40-54 [facility] Laboratory - Chemistry and C hemistry - challengeOrdered By: Dr. Varela on 11-23-2022 ALP [Catalytic activity/Vol] 59 U/L 45-117 [facility] ALT [Catalytic activity/Vol] 40 U/L 16-61 [facility] CO2 [Moles/Vol] 29.0 mmol/L 21.0-32.0 [facility] Globulin (S) [Mass/Vol] 3.1 g/dL 2.2-4.2 [facility] Urea nitrogen/Creatinine [Mass ratio] 20.2 mg/mg 10-20 [facility] Laboratory - Hematology and Cell countsOrdered By: Dr. Varela on 11-23-2022 Erythrocyte distribution width (RBC) [Entitic vol] 45.1 fL 35.1-43.9 [facility] Erythrocyte distribution width (RBC) [Ratio] 13.4 % 11.6-14.6 [facility] Immature granulocytes/100 WBC (Bld) 0.700 % 0.0-0.9 [facility] Comment on above: IG% - Immature Granu locytes (promyelocytes, myelocytes and metamyelocytes) > 1% indicates that a LEFT SHIFT is Present. MCH (RBC) [Entitic mass] 28.6 pg 27.0-32.0 [facility] Nucleated RBC/100 WBC (Bld) [Ratio] 0 % 0-5 [facility] MCHC Auto (RBC) [Mass/Vol]Or dered By: Dr. Varela on 11-23-2022 MCHC (RBC) [Mass/Vol] 31.4 g/dL 32-36 [facility] No Panel InformationOrdered By: Dr. Varela on 11-23-2022 Estimated GFR (MDRD) Amer 88 mL/min >60 [facility] Comment on above: GFR Calc Estimated GFR (MDRD) Non-Af Amer 73 mL/min >60 [facility] Comment on above: Non- GFR Calc Platelets bldOrdered By: Dr. Varela on 11-23-2022 Platelets (Bld) [#/Vol] 297 10*3/uL 150-450 [facility] Serum or plasma albumin brenda urement (mass/volume)Ordered By: Dr. Varela on 11-23-2022 Albumin [Mass/Vol] 4.0 g/dL 3.2-5.0 [facility] Serum or plasma albumin/glob ulin mass ratioOrdered By: Dr. Varela on 11-23-2022 Albumin/Globulin [Mass ratio] 1.3 {ratio} 0.9-2.4 [facility] Serum or plasma calcium brenda urement (mass/volume)Ordered By: Dr. Varela on 11-23-2022 Calcium [Mass/Vol] 8.9 mg/dL 8.5-10.1 [facility] Serum or plasma creatinine m easurement (mass/volume)Ordered By: Dr. Varela on 11-23-2022 Creatinine [Mass/Vol] 1.09 mg/dL 0.70-1.30 [facility] Comment on above: The validity of the calculated GFR & GFRAA in patients over 70 years has not been determined. Clinical correlation is essential. Serum or plasma urea nitroge n measurement (mass/volume)Ordered By: Dr. Varela on 11-23-2022 Urea nitrogen [Mass/Vol] 22 mg/dL 7-18 [facility] Thin prep Papanicolaou smear with manual screeningOrdered By: Dr. Varela on 11-23-2022 Thin prep Papanicolaou smear with manual screening 22 U/L 15-37 [facility] Thin prep Papanicolaou smear with manual screening 5 5-15 [facility] Basophil percentageOrdered B y: ONION FARMER Kylie Morgan on 11-17-2022 Creatinine [Mass/Vol] 1.0 mg/dL 0.70-1.30 [facility] No Panel InformationOrdered By: ONION FARMER Kylie Morgan on 11-17-2022 Bedside Estimated GFR (eGFR) > 60.0000 mL/min >60 [facility] No Panel InformationOrdered By: Dr. Lutz on 10-30-2022 Prostate Specific Antigen Total 3.21 ng/mL 0.0-4.0 [facility] Comment on above: This test was perfor med using the TPSA assay method for theLela chemistry system. Values obtained with differentassay methods cannot be used interchangably.When changing PSA assays in the course of monitoring apatient, additional sequential testing should be carriedout to confirm baseline values. Basophil percentageOrdered B y: Dr. Lovett on 07-28-2022 Bilirubin [Mass/Vol] 0.60 mg/dL 0.20-1.00 [facility] [facility] Comment on above: For patients on eltr ombopag therapy, use of Dimension [place] TBIL is not recommended. Chloride [Moles/Vol] 102 mmol/L 98-107 [facility] Glucose [Mass/Vol] 124 mg/dL 74-106 [facility] Comment on above: Fasting Glucose resu lt from 100 to 125 mg/dL suggests IMPAIRED HOMEOSTASIS per A.D.A. criteria. Potassium [Moles/Vol] 4.5 mmol/L 3.5-5.1 [facility] Protein [Mass/Vol] 7.4 g/dL 6.4-8.2 [facility] Sodium [Moles/Vol] 137 mmol/L 136-145 [facility] Testosterone [Mass/Vol] 141 ng/dL [phone] [facility] Comment on above: Adult male reference interval is based on a population ofhealthy nonobese males (BMI <30) between 19 and 39 yearsold. juan ramon [place]. JCEM 2017,102;[id number]. PMID:[id number]. Blood erythrocytes count (nu mber/volume)Ordered By: Dr. Lovett on 07-28-2022 RBC (Bld) [#/Vol] 3.74 10*6/uL 4.14-5.80 [facility] Erythrocyte [id number] ate dehydrogenase (enzymatic activity/mass)Ordered By: Dr. Lovett on 07-28-2022 G6PD (RBC) [Catalytic activity/Mass] 260 127-427 [facility] Comment on above: Result Units: U/10E1 2 RBCWhen decreased, G-6-PD, Quant. values are associated withacute hemolytic anemia when deficient individuals areexposed to oxidative stress, such as with certainmedications (e.g., primaquine), infection, or ingestion offava beans. Caution: In patients with acute hemolysis(e.g., abnormally low RBC values), testing for G-6-PD maybe falsely normal because older erythrocytes with a higherenzyme deficiency have been hemolyzed. Young erythrocytesand reticulocytes have normal or near-normal enzymeactivity. Normal values of G-6-PD may be measured forseveral weeks following a hemolytic event. Free testosterone percentage Ordered By: Dr. Lovett on 07-28-2022 Testosterone Free/Testosterone.total [Mass fraction] 4.10 % 1.50-4.20 [facility] Comment on above: Performed at: [address] [id number] Director: Axel Cronin PhD, Phone: [phone] at: [facility] [address] [id number] Director: Eden Dominguez MD, Phone: [phone] Laboratory - Chemistry and C hemistry - challengeOrdered By: Dr. Lovett on 07-28-2022 ALP [Catalytic activity/Vol] 62 U/L 45-117 [facility] ALT [Catalytic activity/Vol] 35 U/L 16-61 [facility] CO2 [Moles/Vol] 27.0 mmol/L 21.0-32.0 [facility] Free T4 [Mass/Vol] 1.11 ng/dL 0.76-1.46 [facility] Globulin (S) [Mass/Vol] 3.4 g/dL 2.2-4.2 [facility] Urea nitrogen/Creatinine [Mass ratio] 19.3 mg/mg 10-20 [facility] No Panel InformationOrdered By: Dr. Lovett on 07-28-2022 Urine Microalbumin/Creatinine Ratio 5.1 mg/g CRE <30 [facility] Estimated GFR (MDRD) Amer 52 mL/min >60 [facility] Comment on above: GFR Calc Estimated GFR (MDRD) Non-Af Amer 43 mL/min >60 [facility] Comment on above: Non- GFR Calc Follicle Stimulating Hormone 2.5 mIU/mL [facility] Comment on above: NORMAL REFERENCE RAN [facility] FEMALE FOLLICULAR 2.3 - 12.6 mIU/mL MID-CYCLE PEAK 5.2 - 17.5 mIU/mL LUTEAL 1.7 - 12.9 mIU/mL POST-MENOPAUSAL ON MHT 5.9 - 72.8 mIU/mL NOT ON MHT 12.7 - 132.2 mlU/mL MALE 0.7 - 10.8 mIU/mL Free Triiodothyronine (T3) pg/dL 1.6 pg/mL 2.18-3.98 [facility] Luteinizing Hormone 2.6 mIU/mL [facility] Comment on above: NORMAL REFERENCE [facility] FEMALE FOLLICULAR 1.9 - 26.2 mIU/mL MID-CYCLE PEAK 22.8 - 76.1 mIU/mL LUTEAL 0.6 - 16.6 mIU/mL POST-MENOPAUSAL ON MHT 1.1 - 52.4 mIU/mL NOT ON MHT 8.6 - 61.8 mIU/mL MALE 1.2 - 10.6 mIU/mL Thyroid Stimulating Hormone (TSH) 2.01 uIU/mL 0.358-3.74 [facility] Vitamin D 25-Hydroxy 46.6 ng/mL [facility] Comment on above: Vitamin D 25(OH) Sta tus Range Deficiency <20 ng/mL (50nmol/L) Insufficiency 20 - 30 ng/mL (50 - 75 nmol/L) Sufficiency 30 - 100 ng/mL (75 - 250 nmol/L) Toxicity >100 ng/mL (>250 nmol/L) Serum or plasma albumin brenda urement (mass/volume)Ordered By: Dr. Lovett on 07-28-2022 Albumin [Mass/Vol] 4.0 g/dL 3.2-5.0 [facility] Serum or plasma albumin/glob ulin mass ratioOrdered By: Dr. Lovett on 07-28-2022 Albumin/Globulin [Mass ratio] 1.2 {ratio} 0.9-2.4 [facility] Serum or plasma calcium bredna urement (mass/volume)Ordered By: Dr. Lovett on 07-28-2022 Calcium [Mass/Vol] 9.4 mg/dL 8.5-10.1 [facility] Serum or plasma cortisol ella surement (mass/volume)Ordered By: Dr. Lovett on 07-28-2022 Cortisol [Mass/Vol] 17.00 ug/dL 3.44-22.45 [facility] Comment on above: Adult (AM) 5.27 - 22 .45 ug/dL Adult (PM) 3.44 - 16.76 ug/dLPlease note revised CORTISOL reference range effective 2019. Serum or plasma creatinine m easurement (mass/volume)Ordered By: Dr. Lovett on 07-28-2022 Creatinine [Mass/Vol] 1.71 mg/dL 0.70-1.30 [facility] Comment on above: The validity of the calculated GFR & GFRAA in patients over 70 years has not been determined. Clinical correlation is essential. Serum or plasma prolactin me asurement (mass/volume)Ordered By: Dr. Lovett on 07-28-2022 Prolactin [Mass/Vol] 13.7 ng/mL [facility] Comment on above: NORMAL REFERENCE RAN GES FEMALE NON- 2.2 - 30.3 ng/mL 8.1 - 347.6 ng/mL POST-MENOPAUSAL 0.7 - 31.5 ng/mL MALE 2.5 - 17.4 ng/mL Serum or plasma testosterone free measurement (mass/volume)Ordered By: Dr. Lovett on 07-28-2022 Testosterone Free [Mass/Vol] 5.78 ng/dL 5.00-21.00 [facility] Serum or plasma urea nitroge n measurement (mass/volume)Ordered By: Dr. Lovett on 07-28-2022 Urea nitrogen [Mass/Vol] 33 mg/dL 7-18 [facility] Thin prep Papanicolaou smear with manual screeningOrdered By: Dr. Lovett on 07-28-2022 Thin prep Papanicolaou smear with manual screening 7.6 mg/L NO RANGE EST. [facility] Thin prep Papanicolaou smear with manual screening 16 U/L 15-37 [facility] Thin prep Papanicolaou smear with manual screening 8 5-15 [facility] Urine creatinine measurement (mass/volume)Ordered By: Dr. Lovett on 07-28-2022 Creatinine (U) [Mass/Vol] 148.00 mg/dL NO RANGE EST. [facility] Whole blood hemoglobin A1c/t otal hemoglobin ratio (mass fraction)Ordered By: Dr. Lovett on 07-28-2022 HbA1c (Bld) [Mass fraction] 6.6 % 3.8-5.6 [facility] Comment on above: Normal < 5.7 % Predi abetic 5.7 - 6.4 % Diabetic >or= 6.5 % Please note range changes. Basophil percentageon 2021 Bilirubin [Mass/Vol] 0.70 mg/dL 0.20-1.00 [facility] Work Phone: Comment on above: For patients on eltr ombopag therapy, use of Dimension [place] TBIL is not recommended. Chloride [Moles/Vol] 101 mmol/L 98-107 [facility] Work Phone: Glucose [Mass/Vol] 136 mg/dL 74-106 [facility] Work Phone: Comment on above: Fasting Glucose resu lt greater than or equal to 126 mg/dL suggests DIABETES MELLITUS per A.D.A. criteria. Potassium [Moles/Vol] 4.2 mmol/L 3.5-5.1 [facility] Work Phone: Protein [Mass/Vol] 7.4 g/dL 6.4-8.2 [facility] Work Phone: Sodium [Moles/Vol] 135 mmol/L 136-145 [facility] Work Phone: Laboratory - Chemistry and C hemistry - challengeon 06-26-2022 ALP [Catalytic activity/Vol] 64 U/L 45-117 [facility] Work Phone: ALT [Catalytic activity/Vol] 47 U/L 16-61 [facility] Work Phone: CO2 [Moles/Vol] 27.0 mmol/L 21.0-32.0 [facility] Work Phone: Globulin (S) [Mass/Vol] 3.4 g/dL 2.2-4.2 [facility] Work Phone: Urea nitrogen/Creatinine [Mass ratio] 17.9 mg/mg 10-20 [facility] Work Phone: No Panel Informationon 06-26 Estimated GFR (MDRD) Amer 66 mL/min >60 [facility] Work Phone: Comment on above: GFR Calc Estimated GFR (MDRD) Non-Af Amer 55 mL/min >60 [facility] Work Phone: Comment on above: Non- GFR Calc Serum or plasma albumin brenda urement (mass/volume)on 06-26-2022 Albumin [Mass/Vol] 4.0 g/dL 3.2-5.0 [facility] Work Phone: Serum or plasma albumin/glob ulin mass ratioon 06-26-2022 Albumin/Globulin [Mass ratio] 1.2 {ratio} 0.9-2.4 [facility] Work Phone: Serum or plasma calcium brenda urement (mass/volume)on 06-26-2022 Calcium [Mass/Vol] 9.1 mg/dL 8.5-10.1 [facility] Work Phone: Serum or plasma creatinine m easurement (mass/volume)on 06-26-2022 Creatinine [Mass/Vol] 1.40 mg/dL 0.70-1.30 [facility] Work Phone: Comment on above: The validity of the calculated GFR & GFRAA in patients over 70 years has not been determined. Clinical correlation is essential. Serum or plasma urea nitroge n measurement (mass/volume)on 06-26-2022 Urea nitrogen [Mass/Vol] 25 mg/dL 7-18 [facility] Work Phone: Thin prep Papanicolaou smear with manual screeningon 06-26-2022 Thin prep Papanicolaou smear with manual screening 24 U/L 15-37 [facility] Work Phone: Thin prep Papanicolaou smear with manual screening 7 5-15 [facility] Work Phone: Laboratory - Hematology and Cell countson 06-08-2022 HbA1c (Bld) [Mass fraction] 6.6 % [facility] Work Phone: Absolute lymphocyte counton 05-13-2022 Lymphocytes Auto (Unsp spec) [#/Vol] 1.71 10*3/uL 0.83-4.51 [facility] Work Phone: Basophil percentageon 2021 Basophils/100 WBC (Bld) 1.5 % 0-1 [facility] Work Phone: Bilirubin [Mass/Vol] 0.80 mg/dL 0.20-1.00 [facility] Work Phone: Comment on above: For patients on eltr ombopag therapy, use of Dimension [place] TBIL is not recommended. Chloride [Moles/Vol] 102 mmol/L 98-107 [facility] Work Phone: Eosinophils/100 WBC (Bld) 4.3 % 0-5 [facility] Work Phone: Glucose [Mass/Vol] 129 mg/dL 74-106 [facility] Work Phone: Comment on above: Fasting Glucose resu lt greater than or equal to 126 mg/dL suggests DIABETES MELLITUS per A.D.A. criteria. Neutrophils (Bld) [#/Vol] 4.2 10*3/uL 2.0-7.7 [facility] Work Phone: Neutrophils/100 WBC (Bld) 58.8 % 47-70 [facility] Work Phone: Potassium [Moles/Vol] 4.6 mmol/L 3.5-5.1 [facility] Work Phone: Protein [Mass/Vol] 7.5 g/dL 6.4-8.2 [facility] Work Phone: Sodium [Moles/Vol] 136 mmol/L 136-145 [facility] Work Phone: WBC (Bld) [#/Vol] 7.1 10*3/uL 4.4-11.0 [facility] Work Phone: Blood erythrocytes count (nu mber/volume)on 05-13-2022 RBC (Bld) [#/Vol] 4.53 10*6/uL 4.6-6.2 [facility]: Blood hemoglobin measurement (mass/volume)on 05-13-2022 Hemoglobin (Bld) [Mass/Vol] 13.4 g/dL 13.0-16.5 [facility] Work Phone: Blood lymphocytes/100 leukoc yteson 05-13-2022 Lymphocytes/100 WBC (Bld) 23.9 % 19-41 [facility] Work Phone: Blood monocytes/100 leukocyt eson 05-13-2022 Monocytes/100 WBC (Bld) 9.1 % 0-10 [facility] Work Phone: Blood platelet mean volumeon 05-13-2022 Platelet mean volume (Bld) [Entitic vol] 10.0 fL 6.2-12.0 [facility] Work Phone: Determination of erythrocyte mean corpuscular volume (MCV)on 05-13-2022 MCV (RBC) [Entitic vol] 91.4 fL 80-94 [facility] Work Phone: Hematocrit Auto (Bld) [Volum e fraction]on 05-13-2022 Hematocrit (Bld) [Volume fraction] 41.4 % 40-54 [facility] Work Phone: Laboratory - Chemistry and C hemistry - challengeon 05-13-2022 ALP [Catalytic activity/Vol] 63 U/L 45-117 [facility] Work Phone: [phone] ALT [Catalytic activity/Vol] 43 U/L 16-61 [facility] Work Phone: [phone] CO2 [Moles/Vol] 28.0 mmol/L 21.0-32.0 [facility] Work Phone: [phone] Globulin (S) [Mass/Vol] 3.6 g/dL 2.2-4.2 [facility] Work Phone: [phone] Urea nitrogen/Creatinine [Mass ratio] 18.3 mg/mg 10-20 [facility] Work Phone: [phone] Laboratory - Hematology and Cell countson 05-13-2022 Erythrocyte distribution width (RBC) [Entitic vol] 47.2 fL 35.1-43.9 [facility] Work Phone: [phone] Erythrocyte distribution width (RBC) [Ratio] 13.8 % 11.6-14.6 [facility] Work Phone: [phone] Immature granulocytes/100 WBC (Bld) 2.400 % 0.0-0.9 [facility] Work Phone: Comment on above: IG% - Immature Granu locytes (promyelocytes, myelocytes and metamyelocytes) > 1% indicates that a LEFT SHIFT is Present. MCH (RBC) [Entitic mass] 29.6 pg 27.0-32.0 [facility] Work Phone: [phone] Nucleated RBC/100 WBC (Bld) [Ratio] 0 % 0-5 [facility] Work Phone: [phone] MCHC Auto (RBC) [Mass/Vol]on 05-13-2022 MCHC (RBC) [Mass/Vol] 32.4 g/dL 32-36 [facility] Work Phone: No Panel Informationon 05-13 Estimated GFR (MDRD) Amer 71 mL/min >60 [facility] Work Phone: Comment on above: GFR Calc Estimated GFR (MDRD) Non-Af Amer 59 mL/min >60 [facility] Work Phone: Comment on above: Non- GFR Calc Platelets bldon 05-13-2022 Platelets (Bld) [#/Vol] 278 10*3/uL 150-450 [facility] Work Phone: Serum or plasma albumin brenda urement (mass/volume)on 05-13-2022 Albumin [Mass/Vol] 3.9 g/dL 3.2-5.0 [facility] Work Phone: Serum or plasma albumin/glob ulin mass ratioon 05-13-2022 Albumin/Globulin [Mass ratio] 1.1 {ratio} 0.9-2.4 [facility] Work Phone: Serum or plasma calcium brenda urement (mass/volume)on 05-13-2022 Calcium [Mass/Vol] 9.2 mg/dL 8.5-10.1 [facility] Work Phone: Serum or plasma creatinine m easurement (mass/volume)on 05-13-2022 Creatinine [Mass/Vol] 1.31 mg/dL 0.70-1.30 [facility] Work Phone: Comment on above: The validity of the calculated GFR & GFRAA in patients over 70 years has not been determined. Clinical correlation is essential. Serum or plasma urea nitroge n measurement (mass/volume)on 05-13-2022 Urea nitrogen [Mass/Vol] 24 mg/dL 7-18 [facility] Work Phone: Thin prep Papanicolaou smear with manual screeningon 05-13-2022 Thin prep Papanicolaou smear with manual screening 16 U/L 15-37 [facility] Work Phone: Thin prep Papanicolaou smear with manual screening 6 5-15 [facility] Work Phone: No Panel Informationon 04-24 Prostate Specific Antigen Screen 1.73 ng/mL 0.00-4.00 [facility] Work Phone: Comment on above: This test was perfor med using the TPSA assay method for [employer] chemistry system. Values obtained with differentassay methods cannot be used interchangably.When changing PSA assays in the course of monitoring apatient, additional sequential testing should be carriedout to confirm baseline values. MRI PITUITARY WO/W IVCONon 0 12-07-2021 [facility] Office Visit: Spine Visit- N EWon 06-22-2017 Protein mass conc Done Invalid Interpretation Code [facility] Work Phone: [phone] Tobacco smoking status NHIS Never Invalid Interpretation Code [facility] Work Phone: [phone] Tobacco smoking status [facility] Never smoker Invalid Interpretation Code [facility] Work Phone: [phone] Vital Signs Date Time Vital Sign Value Performing Clinician Facility 03-01-2025 08:01-0400 Body temperature 98.2 [degF] Dr. William Amado DO Work Phone: [facility] 03-01-2025 08:01-0400 Diastolic blood pressure 81 mm[Hg] Dr. William Amado DO Work Phone: [facility] 03-01-2025 08:01-0400 Heart rate 61 /min Dr. William Amado DO Work Phone: [facility] 03-01-2025 08:01-0400 Respiratory rate 16 /min Dr. William Amado DO Work Phone: [facility] 03-01-2025 08:01-0400 SaO2% (BldA) [Mass fraction] 96 % Dr. William Amado DO Work Phone: [facility] 03-01-2025 08:01-0400 Systolic blood pressure 144 mm[Hg] Dr. William Amado DO Work Phone: [facility] 03-01-2025 06:42-0400 Body height 172.[address] William Amado DO Work Phone: [facility] 03-01-2025 06:42-0400 Body mass index (BMI) [Ratio] 36.5 kg/m2 Dr. William Amado DO Work Phone: [facility] 03-01-2025 06:42-0400 Body weight [address] William Amado DO Work Phone: [facility] 02-21-2025 16:11-0400 Body height 167.[address] William Amado DO Work Phone: [facility] 02-21-2025 16:11-0400 Body mass index (BMI) [Ratio] 39.1 kg/m2 Dr. William Amado DO Work Phone: [facility] 02-21-2025 16:11-0400 Body weight 109.[address] William Amado DO Work Phone: [facility] 02-21-2025 16:11-0400 Diastolic blood pressure 88 mm[Hg] Dr. William Amado DO Work Phone: [facility] 02-21-2025 16:11-0400 Heart rate 63 /min Dr. William Amado DO Work Phone: [facility] 02-21-2025 16:11-0400 SaO2% (BldA) [Mass fraction] 96 % Dr. William Amado DO Work Phone: [facility] 02-21-2025 16:11-0400 Systolic blood pressure 153 mm[Hg] Dr. William Amado DO Work Phone: [facility] 01-10-2025 07:20-0400 Diastolic blood pressure 78 mm[Hg] William Amado DO Work Phone: [facility] 01-10-2025 07:20-0400 Heart rate 68 /min William Amado DO Work Phone: [facility] 01-10-2025 07:20-0400 Systolic blood pressure 144 mm[Hg] William Amado DO Work Phone: [facility] 01-10-2025 06:51-0400 Body height 172.7 cm William Amado DO Work Phone: [facility] 01-10-2025 06:51-0400 Body mass index (BMI) [Ratio] 36.34 kg/m2 William Amado DO Work Phone: [facility] 01-10-2025 06:51-0400 Body temperature 98.2 [degF] William Amado DO Work Phone: [facility] 01-10-2025 06:51-0400 Body weight 108.41 kg William Amado DO Work Phone: [facility] 01-10-2025 06:51-0400 SaO2% (BldA) [Mass fraction] 98 % William Amado DO Work Phone: [facility] 01-09-2025 13:42-0400 Body height 167.[address] William Amado DO Work Phone: [facility] 01-09-2025 13:42-0400 Body mass index (BMI) [Ratio] 38.9 kg/m2 Dr. William Amado DO Work Phone: [facility] 01-09-2025 13:42-0400 Body temperature 98.4 [degF] Dr. William Amado DO Work Phone: [facility] 01-09-2025 13:42-0400 Body weight 109.[address] William Amado DO Work Phone: [facility] 01-09-2025 13:42-0400 Diastolic blood pressure 94 mm[Hg] Dr. William Amado DO Work Phone: [facility] 01-09-2025 13:42-0400 Heart rate 64 /min Dr. William Amado DO Work Phone: [facility] 01-09-2025 13:42-0400 Respiratory rate 18 /min Dr. William Amado DO Work Phone: [facility] 01-09-2025 13:42-0400 SaO2% (BldA) [Mass fraction] 97 % Dr. William Amado DO Work Phone: [facility] 01-09-2025 13:42-0400 Systolic blood pressure 185 mm[Hg] Dr. William Amado DO Work Phone: [facility] 12-20-2024 14:37-0400 Body mass index (BMI) [Ratio] 38.9 kg/m2 Dr. William Amado DO Work Phone: [facility] 12-20-2024 14:37-0400 Body weight 109.[address] William Amado DO Work Phone: [facility] 12-20-2024 14:37-0400 Diastolic blood pressure 94 mm[Hg] Dr. William Amado DO Work Phone: [facility] 12-20-2024 14:37-0400 Heart rate 64 /min Dr. William Amado DO Work Phone: [facility] 12-20-2024 14:37-0400 Respiratory rate 16 /min Dr. William Amado DO Work Phone: [facility] 12-20-2024 14:37-0400 SaO2% (BldA) [Mass fraction] 94 % Dr. William Amado DO Work Phone: [facility] 12-20-2024 14:37-0400 Systolic blood pressure 165 mm[Hg] Dr. William Amado DO Work Phone: [facility] 12-13-2024 09:12-0400 Body mass index (BMI) [Ratio] 38.7 kg/m2 Dr. William Amado DO Work Phone: [facility] 12-13-2024 09:12-0400 Body temperature 98.6 [degF] Dr. William Amado DO Work Phone: [facility] 12-13-2024 09:12-0400 Body weight 110.[address] William Amado DO Work Phone: [facility] 12-13-2024 09:12-0400 Diastolic blood pressure 90 mm[Hg] Dr. William Amado DO Work Phone: [facility] 12-13-2024 09:12-0400 Heart rate 71 /min Dr. William Amado DO Work Phone: [facility] 12-13-2024 09:12-0400 Respiratory rate 18 /min Dr. William Amado DO Work Phone: [facility] 12-13-2024 09:12-0400 SaO2% (BldA) [Mass fraction] 96 % Dr. William Amado DO Work Phone: [facility] 12-13-2024 09:12-0400 Systolic blood pressure 168 mm[Hg] Dr. William Amado DO Work Phone: [facility] 12-05-2024 13:55-0400 Body height 168.[address] William Amado DO Work Phone: [facility] 12-05-2024 13:55-0400 Body mass index (BMI) [Ratio] 39 kg/m2 Dr. William Amado DO Work Phone: [facility] 12-05-2024 13:55-0400 Body temperature 98.4 [degF] Dr. William Amado DO Work Phone: [facility] 12-05-2024 13:55-0400 Body weight 111.[address] William Amado DO Work Phone: [facility] 12-05-2024 13:55-0400 Diastolic blood pressure 80 mm[Hg] Dr. William Amado DO Work Phone: [facility] 12-05-2024 13:55-0400 Heart rate 65 /min Dr. William Amado DO Work Phone: [facility] 12-05-2024 13:55-0400 Respiratory rate 18 /min Dr. William Amado DO Work Phone: [facility] 12-05-2024 13:55-0400 SaO2% (BldA) [Mass fraction] 97 % Dr. William Amado DO Work Phone: [facility] 12-05-2024 13:55-0400 Systolic blood pressure 166 mm[Hg] Dr. William Amado DO Work Phone: [facility] 07-11-2024 08:03-0500 Diastolic blood pressure 84 mm[Hg] William Amado DO Work Phone: [facility] 07-11-2024 08:03-0500 Heart rate 68 /min William Amado DO Work Phone: [facility] 07-11-2024 08:03-0500 Systolic blood pressure 142 mm[Hg] William Amado DO Work Phone: [facility] 07-11-2024 07:06-0500 Body height 172.7 cm William Amado DO Work Phone: [facility] 07-11-2024 07:06-0500 Body mass index (BMI) [Ratio] 35.73 kg/m2 William Amado DO Work Phone: [facility] 07-11-2024 07:06-0500 Body temperature 97.5 [degF] William Amado DO Work Phone: [facility] 07-11-2024 07:06-0500 Body weight 106.59 kg William Amado DO Work Phone: [facility] 07-11-2024 07:06-0500 SaO2% (BldA) [Mass fraction] 96 % William Amado DO Work Phone: [facility] 01-18-2024 07:52-0400 Body height 172.7 cm William Amado DO Work Phone: [facility] 01-18-2024 07:52-0400 Body mass index (BMI) [Ratio] 36.95 kg/m2 William Ortizmiltonred NICK Work Phone: [facility] 01-18-2024 07:52-0400 Body temperature 97.3 [degF] William Amado DO Work Phone: [facility] 01-18-2024 07:52-0400 Body weight 110.22 kg William Amado DO Work Phone: [facility] 01-18-2024 07:52-0400 Diastolic blood pressure 70 mm[Hg] William Ardenmiltonred NICK Work Phone: [facility] 01-18-2024 07:52-0400 Heart rate 76 /min William Ardenmiltonred NICK Work Phone: [facility] 01-18-2024 07:52-0400 SaO2% (BldA) [Mass fraction] 96 % William Amado DO Work Phone: [facility] 01-18-2024 07:52-0400 Systolic blood pressure 132 mm[Hg] William Amado Work Phone: [facility] 12-15-2023 15:20-0400 Body height 168.[address] William Amado Work Phone: [facility] 12-15-2023 15:20-0400 Body mass index (BMI) [Ratio] 38.1 kg/m2 Dr. William Amado Work Phone: [facility] 12-15-2023 15:20-0400 Body weight 108.[address] William Amado Work Phone: [facility] 12-15-2023 15:20-0400 Diastolic blood pressure 88 mm[Hg] Dr. William mAado Work Phone: [facility] 12-15-2023 15:20-0400 Heart rate 69 /min Dr. William Amado Work Phone: [facility] 12-15-2023 15:20-0400 SaO2% (BldA) [Mass fraction] 96 % Dr. William Amado Work Phone: [facility] 12-15-2023 15:20-0400 Systolic blood pressure 156 mm[Hg] Dr. William Amado Work Phone: [facility] 10-13-2023 15:57-0500 Body temperature 99 [degF] Krislyn Aberegg PA Work Phone: [facility] 10-13-2023 15:57-0500 Body weight 109.32 kg Krislyn Aberegg PA Work Phone: [facility] 10-13-2023 15:57-0500 Diastolic blood pressure 90 mm[Hg] Krislyn Aberegg PA Work Phone: [facility] 10-13-2023 15:57-0500 Heart rate 78 /min Krislyn Aberegg PA Work Phone: [facility] 10-13-2023 15:57-0500 Respiratory rate 20 /min Krislyn Aberegg PA Work Phone: [facility] 10-13-2023 15:57-0500 SaO2% (BldA) [Mass fraction] 97 % Krislyn Aberegg PA Work Phone: [facility] 10-13-2023 15:57-0500 Systolic blood pressure 153 mm[Hg] Krislyn Aberegg PA Work Phone: [facility] 09-15-2023 07:58-0500 Body mass index (BMI) [Ratio] 39.3 kg/m2 Dr. William Amado Work Phone: [facility] 09-15-2023 07:58-0500 Body temperature 98.9 [degF] Dr. William Amado Work Phone: [facility] 09-15-2023 07:58-0500 Body weight 112.[address] William Amado Work Phone: [facility] 09-15-2023 07:58-0500 Diastolic blood pressure 74 mm[Hg] Dr. William Amado Work Phone: [facility] 09-15-2023 07:58-0500 Heart rate 72 /min Dr. William Amado Work Phone: [facility] 09-15-2023 07:58-0500 Respiratory rate 16 /min Dr. William Amado Work Phone: [facility] 09-15-2023 07:58-0500 SaO2% (BldA) [Mass fraction] 98 % Dr. William Amado Work Phone: [facility] 09-15-2023 07:58-0500 Systolic blood pressure 134 mm[Hg] Dr. William Amado Work Phone: [facility] 07-20-2023 07:57-0500 Body height 172.7 cm William Amado DO Work Phone: [facility] 07-20-2023 07:57-0500 Body mass index (BMI) [Ratio] 36.04 kg/m2 William Amado DO Work Phone: [facility] 07-20-2023 07:57-0500 Body temperature 98.1 [degF] William Amado DO Work Phone: [facility] 07-20-2023 07:57-0500 Body weight 107.5 kg William Amado DO Work Phone: [facility] 07-20-2023 07:57-0500 Diastolic blood pressure 89 mm[Hg] William Amado DO Work Phone: [facility] 07-20-2023 07:57-0500 Heart rate 75 /min William Amado DO Work Phone: [facility] 07-20-2023 07:57-0500 SaO2% (BldA) [Mass fraction] 99 % William Amado DO Work Phone: [facility] 07-20-2023 07:57-0500 Systolic blood pressure 139 mm[Hg] William Amado DO Work Phone: [facility] 07-09-2023 13:47-0400 Body temperature 99.1 [degF] Jodi Richardson [employer].STRATEGIC ACCOUNTS MANAGER Work Phone: [facility] 07-09-2023 13:47-0400 Body weight 108.23 kg Jodi Richardson MECH[employer]IC GENERAL [employer]PERATIONAL TEST.STRATEGIC ACCOUNTS MANAGER Work Phone: [facility] 07-09-2023 13:47-0400 Diastolic blood pressure 82 mm[Hg] Jodi Richardson MECH[employer]IC GENERAL OPERATIONAL TEST.STRATEGIC ACCOUNTS MANAGER Work Phone: [facility] 07-09-2023 13:47-0400 Heart rate 83 /min Jodi Richardson MECH[employer]IC GENERAL OPERATIONAL TEST.STRATEGIC ACCOUNTS MANAGER Work Phone: [facility] 07-09-2023 13:47-0400 Respiratory rate 16 /min Jodi Richardson MECH[employer]IC GENERAL OPERATIONAL TEST.STRATEGIC ACCOUNTS MANAGER Work Phone: [facility] 07-09-2023 13:47-0400 SaO2% (BldA) [Mass fraction] 96 % Jodi Richardson MECH[employer]IC GENERAL OPERATIONAL TEST.STRATEGIC ACCOUNTS MANAGER Work Phone: [facility] 07-09-2023 13:47-0400 Systolic blood pressure 144 mm[Hg] Jodi Richardson MECH[employer]IC GENERAL OPERATIONAL TEST.STRATEGIC ACCOUNTS MANAGER Work Phone: [facility] 05-13-2023 08:34-0400 Body height 168.[address] William Amado Work Phone: [facility] 05-13-2023 08:34-0400 Body mass index (BMI) [Ratio] 38.9 kg/m2 Dr. William Amado Work Phone: [facility] 05-13-2023 08:34-0400 Body temperature 98.2 [degF] Dr. William Amado Work Phone: [facility] 05-13-2023 08:34-0400 Body weight 111.[address] William Amado Work Phone: [facility] 05-13-2023 08:34-0400 Diastolic blood pressure 72 mm[Hg] Dr. William Amado Work Phone: [facility] 05-13-2023 08:34-0400 Heart rate 82 /min Dr. William Amado Work Phone: [facility] 05-13-2023 08:34-0400 Respiratory rate 18 /min Dr. William Amado Work Phone: [facility] 05-13-2023 08:34-0400 SaO2% (BldA) [Mass fraction] 97 % Dr. William Amado Work Phone: [facility] 05-13-2023 08:34-0400 Systolic blood pressure 160 mm[Hg] Dr. William Amado Work Phone: [facility] 04-01-2023 09:00-0400 Body mass index (BMI) [Ratio] 37 kg/m2 Dr. William Amado Work Phone: [facility] 04-01-2023 09:00-0400 Body temperature 98.6 [degF] Dr. William Amado Work Phone: [facility] 04-01-2023 09:00-0400 Body weight 105.[address] William Amado Work Phone: [facility] 04-01-2023 09:00-0400 Diastolic blood pressure 100 mm[Hg] Dr. William Amado Work Phone: [facility] 04-01-2023 09:00-0400 Heart rate 73 /min Dr. William Amado Work Phone: [facility] 04-01-2023 09:00-0400 Respiratory rate 16 /min Dr. William Amado Work Phone: [facility] 04-01-2023 09:00-0400 SaO2% (BldA) [Mass fraction] 96 % Dr. William Amado Work Phone: [facility] 04-01-2023 09:00-0400 Systolic blood pressure 174 mm[Hg] Dr. William Amado Work Phone: [facility] 03-17-2023 12:18-0400 Body temperature 98.1 [degF] Misha Weaver MD Work Phone: [facility] 03-17-2023 12:18-0400 Body weight 104.51 kg Misha Weaver MD Work Phone: [facility] 03-17-2023 12:18-0400 Diastolic blood pressure 79 mm[Hg] Misha Weaver MD Work Phone: [facility] 03-17-2023 12:18-0400 Heart rate 70 /min Misha Weaver MD Work Phone: [facility] 03-17-2023 12:18-0400 Respiratory rate 17 /min Misha Weaver MD Work Phone: [facility] 03-17-2023 12:18-0400 SaO2% (BldA) [Mass fraction] 98 % Misha Weaver MD Work Phone: [facility] 03-17-2023 12:18-0400 Systolic blood pressure 162 mm[Hg] Misha Weaver MD Work Phone: [facility] 01-13-2023 08:25-0400 Diastolic blood pressure 80 mm[Hg] William Amado DO Work Phone: [facility] 01-13-2023 08:25-0400 Heart rate 68 /min William Amado DO Work Phone: [facility] 01-13-2023 08:25-0400 Systolic blood pressure 138 mm[Hg] William Amado DO Work Phone: [facility] 01-13-2023 07:53-0400 Body height 172.7 cm William Amado DO Work Phone: [facility] 01-13-2023 07:53-0400 Body mass index (BMI) [Ratio] 35.34 kg/m2 William Amado DO Work Phone: [facility] 01-13-2023 07:53-0400 Body temperature 97.5 [degF] William Amado DO Work Phone: [facility] 01-13-2023 07:53-0400 Body weight 105.42 kg William Amado DO Work Phone: [facility] 01-13-2023 07:53-0400 SaO2% (BldA) [Mass fraction] 99 % William Amado DO Work Phone: [facility] 09-22-2022 17:22-0500 Body temperature 97.8 [degF] Dr. William Amado Work Phone: [facility] 09-22-2022 17:22-0500 Diastolic blood pressure 88 mm[Hg] Dr. William Amado Work Phone: [facility] 09-22-2022 17:22-0500 Heart rate 62 /min Dr. William Amado Work Phone: [facility] 09-22-2022 17:22-0500 Respiratory rate 14 /min Dr. William Amado Work Phone: [facility] 09-22-2022 17:22-0500 SaO2% (BldA) [Mass fraction] 99 % Dr. William Amado Work Phone: [facility] 09-22-2022 17:22-0500 Systolic blood pressure 176 mm[Hg] Dr. William Amado Work Phone: [facility] 06-08-2022 08:09-0400 Body height 168.[address] William Amado Work Phone: [facility] Work Phone: 06-08-2022 08:09-0400 Body mass index (BMI) [Ratio] 38.3 kg/m2 Dr. William Amado Work Phone: [facility] Work Phone: 06-08-2022 08:09-0400 Body temperature 96.4 [degF] Dr. William Amado Work Phone: [facility] Work Phone: 06-08-2022 08:09-0400 Body weight 109.[address] William Amado Work Phone: [facility] Work Phone: 06-08-2022 08:09-0400 Diastolic blood pressure 69 mm[Hg] Dr. William Amado Work Phone: [facility] Work Phone: 06-08-2022 08:09-0400 Heart rate 80 /min Dr. William Amado Work Phone: [facility] Work Phone: 06-08-2022 08:09-0400 Respiratory rate 18 /min Dr. William Amado Work Phone: [facility] Work Phone: 06-08-2022 08:09-0400 SaO2% (BldA) [Mass fraction] 94 % Dr. William Amado Work Phone: [facility] Work Phone: 06-08-2022 08:09-0400 Systolic blood pressure 133 mm[Hg] Dr. William Amado Work Phone: [facility] Work Phone: 06-22-2017 08:49-0400 BMI (Body Mass Index) 30.41 kg/m2 Zhane Jones [facility] Work Phone: 06-22-2017 08:49-0400 Height 172.72 cm [facility] Work Phone: 06-22-2017 08:49-0400 Pulse (Heart Rate) 83 /min Zhane Jones [facility] Work Phone: 06-22-2017 08:49-0400 Respiratory Rate 19 /min Zhane Buenoimes [facility] Work Phone: 06-22-2017 08:49-0400 Weight 90.72 kg [facility]ane [facility] Work Phone: Encounters Encounter Date Encounter Type Care Provider Facility Start: 03-28-2025 End: 03-28-[address] William Amado DO Work Phone: -[facility] Start: 03-28-2025 End: 03-28-[address] Ivette Lai DC -[facility] Work Phone: Start: 03-12-2025 End: 03-12-2025 Patient encounter procedure Mitchel Zuniga DO -[facility] Work Phone: Start: 03-12-2025 End: 03-12-[address] William Amado DO Work Phone: -[facility] Start: 03-01-2025 ambulatory Mitchel Zuniga Facility :[facility] Start: 03-01-2025 Non-patient / Non-visit Mitchel Marcumdesean shira DO -[facility] Start: 03-01-2025 End: 03-01-2025 Admission to same day surgery center Mitchel Zuniga DO -Endoscopy Work Phone: Start: 03-01-2025 End: 03-01-[address] William Amado DO Work Phone: [facility] Work Phone: Start: 02-21-2025 End: 02-21-[address] Ivette Lai DC -[facility] Work Phone: Start: 02-21-2025 End: 02-21-[address] William Amado DO Work Phone: [facility] Work Phone: Start: 02-21-2025 End: 02-21-[address] Monika Lovett MD -[facility] Work Phone: Start: 02-21-2025 End: 02-21-[address] William Amado DO Work Phone: [facility] Work Phone: Start: 01-24-2025 End: 01-24-[address] Ivette Lai DC -[facility] Work Phone: Start: 01-24-2025 End: 01-24-2025 ambulatory Ivette Lai Facility:[facility] Start: 01-10-2025 End: 01-10-2025 Patient encounter procedure Mitchel Zuniga DO -[facility] Work Phone: Start: 01-10-2025 End: 01-10-2025 ambulatory Mitchel Zuniga Facility:[facility] Start: 01-10-2025 End: 01-10-2025 Office outpatient visit 25 minutes William Amado DO Work Phone: [facility] [place] Comment on above: Essential hypertensi on (Primary Dx); Hypertriglyceridemia; Anemia of chronic disease; Elevated prostate specific antigen less than 10 ng/ml; Prediabetes; Inflammatory arthritis; Celiac disease Start: 01-10-2025 End: 01-10-2025 ambulatory WILLIAM [facility] Start: 01-09-2025 End: 01-09-[address] James Chinchilla MD -[facility] Work Phone: Start: 01-09-2025 End: 01-09-2025 ambulatory James Chinchilla Facility:[facility] Start: 01-04-2025 End: 01-04-[address] William Amado DO Work Phone: [facility] Work Phone: Start: 01-04-2025 End: 01-04-[address] James Chinchilla MD -Cat Scan, [facility] Work Phone: Start: 01-04-2025 End: 01-04-[facility] Start: 12-29-2024 End: 12-29-[address] Phani Lutz MD -Laboratory Work Phone: Start: 12-29-2024 End: 12-29-2024 ambulatory William Amado Facility:[facility] Start: 12-26-2024 End: 12-26-2024 ambulatory [facility] Facility:[facility] Start: 12-24-2024 ambulatory [facility] Facility:[facility] Start: 12-24-2024 End: 12-24-2024 Subsequent hospital visit by physician [facility] (I-Stat/1.5t) Work Phone: Radiology Comment on above: Other postprocedural endocrine and metabolic complications and disorders [E89.89] Start: 12-20-2024 End: 12-20-[address] Ivette Lai DC -[facility] Work Phone: Start: 12-20-2024 End: 12-20-2024 ambulatory Ivette Lai Facility:[facility] Start: 12-20-2024 End: 12-20-2024 Patient encounter procedure Rayna LLANES -[facility] Work Phone: Start: 12-20-2024 End: 12-20-2024 ambulatory William Amado Facility:[facility] Start: 12-13-2024 End: 12-13-[address] James Chinchilla MD -[facility] Work Phone: Start: 12-13-2024 End: 12-13-2024 ambulatory James Chinchilla Facility:[facility] Start: 12-06-2024 End: 12-06-[address] William Amado DO Work Phone: [facility] Work Phone: Start: 12-06-2024 End: 12-06-[address] James Chinchilla MD -Laboratory, Specimen Work Phone: Start: 12-05-[address] James Chinchilla MD -[facility] Start: 12-05-2024 End: 12-05-[address] James Chinchilla MD -[facility] Work Phone: Start: 12-05-2024 End: 12-06-2024 ambulatory James Chinchilla Facility:[facility] Start: 11-20-2024 Non-patient / Non-visit Estephania Garcia -[facility] Work Phone: Start: 11-20-2024 ambulatory William Amado Facilit y:[facility] Start: 11-17-2024 End: 11-17-[address] William Amado DO Work Phone: [facility] Work Phone: Start: 11-17-2024 End: 11-17-[address] William Amado DO Work Phone: -Laboratory Work Phone: Start: 11-17-2024 End: 11-17-2024 ambulatory [facility] Facility:[facility] Start: 11-16-2024 End: 11-29-2024 Telephone encounter William Amado DO Work Phone: [facility] Comment on above: Referral Start: 11-15-2024 End: 11-15-[address] Ivette Lai DC -[facility] Work Phone: Start: 11-15-2024 End: 11-15-2024 ambulatory Ivette Lai Facility:[facility] Start: 11-11-2024 End: 11-13-2024 Telephone encounter William Amado DO Work Phone: [facility] Comment on above: Referral (Dr Evert delacruz) Start: 10-27-2024 End: 10-27-[address] William Amado DO -Laboratory Work Phone: Start: 10-27-2024 End: 10-27-2024 ambulatory William Amado Facility:[facility] Start: 10-25-2024 End: 10-25-2024 Office outpatient visit 15 minutes William Amado DO Work Phone: [facility] [place] Comment on above: Normochromic normocy tic anemia (Primary Dx); Inflammatory arthritis; Psoriatic arthritis (HCC) Start: 10-25-2024 End: 10-25-2024 ambulatory [facility] Start: 10-23-2024 End: 11-01-2024 Telephone encounter William Amado DO Work Phone: [facility] Comment on above: Other Start: 10-22-2024 End: 12-07-2024 Telephone encounter William Amado DO Work Phone: [facility] Comment on above: Labs Only Start: 10-18-2024 End: 10-18-[address] Ivette Lai DC -[facility] Work Phone: Start: 10-18-2024 End: 10-18-2024 ambulatory Ivette Lai Facility:[facility] Start: 09-20-2024 End: 09-20-[address] Ivette Lai DC -[facility] Work Phone: Start: 09-20-2024 End: 09-20-2024 ambulatory Ivette Lai Facility:[facility] Start: 09-15-2024 End: 09-15-2024 Patient encounter procedure RENETTA JESUS MD -Laboratory Work Phone: Start: 09-15-2024 End: 09-15-2024 ambulatory RENETTA JESUS Facility:[facility] Start: 08-23-2024 End: 08-23-[address] Ivette Lai DC -[facility] Work Phone: Start: 08-23-2024 End: 08-23-2024 ambulatory Ivette Lai Facility:[facility] Start: 08-03-2024 End: 08-03-2024 Patient encounter procedure RENETTA JESUS MD -Laboratory Work Phone: Start: 08-03-2024 End: 08-03-2024 ambulatory RENETTA JESUS Facility:[facility] Start: 07-26-2024 End: 07-26-2024 ambulatory Ivette Lai Facility:[facility] Start: 07-26-2024 End: 07-26-2024 ambulatory Monika Lovett Facility:[facility] Start: 07-11-2024 End: 07-11-2024 Patient encounter procedure William Dominique Nbared DO Work Phone: [facility] Start: 07-11-2024 End: 07-11-2024 Periodic preventive med est patient 40-64yrs William Dominique Aneudy DO Work Phone: [facility] [place] Comment on above: Annual physical exam (Primary Dx); Inflammatory arthritis; Anemia of chronic disease; Psoriatic arthritis (HCC); Hx of colonic polyps; Family history of prostate cancer; Hypertriglyceridemia; Essential hypertension; Pituitary adenoma (HCC); Type 2 diabetes mellitus without complication, without long-term current use of insulin (CMS/HCC) (HCC); Acquired hypothyroidism; Elevated prostate specific antigen less than 10 ng/ml Start: 07-11-2024 End: 07-11-2024 ambulatory [facility] Start: 07-11-2024 End: 07-11-2024 Encounter for general adult medical examination without abnormal findings [facility] Start: 07-05-2024 End: 07-05-2024 ambulatory Ivette Lai Facility:[facility] Start: 06-18-2024 End: 06-18-2024 ambulatory Mitchel Zuniga Facility:[facility] Start: 06-14-2024 ambulatory William Ardenlenora Roel y:[facility] Start: 06-09-2024 End: 06-09-2024 ambulatory RENETTA JESUS Facility:[facility] Start: 06-07-2024 End: 06-07-2024 ambulatory Ivette Lai Facility:[facility] Start: 05-15-2024 ambulatory William Amado Roel y:[facility] Start: 05-10-2024 End: 05-10-2024 ambulatory Ivette Lai Facility:[facility] Start: 04-28-2024 End: 04-28-2024 ambulatory RENETTA JESUS Facility:[facility] Start: 01-24-2024 Telephone encounter Monika Patel RN [facility] [place] Comment on above: Appointment Start: 01-23-2024 Telephone encounter Dolly de la rosa MECH[employer] GENERAL [employer]PERATIONAL TEST.STRATEGIC ACCOUNTS MANAGER Work Phone: [facility] Comment on above: Results Start: 01-19-2024 Refill William cooley DO Work Phone: [facility] Start: 01-18-2024 End: 01-18-2024 Office outpatient visit 15 minutes William Amado DO Work Phone: [facility] Comment on above: Essential hypertensi on (Primary Dx); Rheumatoid arthritis, involving unspecified site, unspecified whether rheumatoid factor present (HCC); Hypertriglyceridemia; Acquired hypothyroidism; Psoriasis; Type 2 diabetes mellitus without complication, without long-term current use of insulin ([facility]/HCC) (HCC); Pituitary adenoma (HCC) Start: 12-22-2023 End: 12-22-2023 [facility] Dolly Lucas MECHANIC GENERAL OPERATIONAL TEST.STRATEGIC ACCOUNTS MANAGER Work Phone: [facility] Comment on above: Other postprocedural endocrine and metabolic complications and disorders (Primary Dx) Start: 12-20-2023 End: 12-20-2023 Subsequent hospital visit by physician [facility] (I-Stat/1.5t) Work Phone: Radiology Comment on above: Pituitary adenoma (H CC) [D35.2] Start: 12-15-2023 End: 12-15-[address] William Amado Work Phone: [facility] Work Phone: Start: 12-15-2023 End: 12-15-[address] William Amado Work Phone: [facility] Work Phone: Start: 12-15-2023 End: 12-15-[address] William Amado Work Phone: [facility] Work Phone: Start: 11-17-2023 End: 11-17-[address] William Amado Work Phone: [facility] Work Phone: Start: 10-20-2023 End: 10-20-[address] William Amado Work Phone: [facility] Work Phone: Start: 10-13-2023 End: 10-13-2023 Patient encounter procedure Chaparro ISRAEL Work Phone: [facility] Comment on above: Flu-like symptoms (P rimary Dx); Exposure to influenza; Essential hypertension Start: 09-22-2023 End: 09-22-[address] William Amado Work Phone: [facility] Work Phone: Start: 09-15-2023 End: 09-15-[address] William Amado Work Phone: [facility] Work Phone: Start: 08-25-2023 End: 08-25-[address] William Amado Work Phone: [facility] Work Phone: Start: 08-09-2023 Refill William cooley DO Work Phone: [facility] Start: 07-20-2023 End: 07-20-2023 Office outpatient visit 15 minutes William Amado DO Work Phone: [facility] Comment on above: Essential hypertensi on (Primary Dx); Inflammatory arthritis; Type 2 diabetes mellitus without complication, without long-term current use of insulin ([facility]) (HCC); Pituitary neoplasm; Psoriatic arthritis (HCC); Hypothyroidism, unspecified type; Hypertriglyceridemia Start: 07-09-2023 End: 07-09-2023 Patient encounter procedure Jodi Dylan WALDRONSTRATEGIC ACCOUNTS MANAGER Work Phone: [facility] Comment on above: Rhinosinusitis (Prim fidel Dx) Start: 05-14-2023 End: 05-14-[address] William Amado Work Phone: [facility] Work Phone: Start: 05-14-2023 End: 05-14-[address] William Amado Work Phone: [facility] Work Phone: Start: 05-13-2023 End: 05-13-[address] William Amado Work Phone: [facility] Work Phone: Start: 05-12-2023 End: 05-12-[address] William Amado Work Phone: [facility] Work Phone: Start: 04-18-2023 ambulatory Alayna glynn MD Work Phone: [facility] Comment on above: APPT Start: 04-18-2023 E-mail encounter fro m caregiver Alayna Causey MD Work Phone: [facility] Start: 04-14-2023 End: 04-14-2023 [facility] Alayna Causey MD Work Phone: Endocrinology Comment on above: History of pituitary adenoma (Primary Dx); History of pituitary surgery; Low testosterone; Hypogonadism in male; Acquired hypothyroidism; Pituitary disorder (HCC); Other postprocedural endocrine and metabolic complications and disorders; Follow-up exam Start: 04-13-2023 End: 04-13-[address] William Amado Work Phone: [facility] Work Phone: Start: 04-11-2023 Telephone encounter Alayna Malcolm MD Work Phone: Endocrinology Comment on above: Labs Returning Patient's Call Start: 04-01-2023 ambulatory Adelaida Lagunas [employer].STRATEGIC ACCOUNTS MANAGER Work Phone: Otolaryngology Comment on above: Infection Start: 04-01-2023 End: 04-01-[address] William Amado Work Phone: [facility] Work Phone: Start: 03-18-2023 Orders Only Alayna glynn MD Work Phone: [facility] Comment on above: Pituitary adenoma (H CC) (Primary Dx) Start: 03-17-2023 End: 03-17-2023 Patient encounter procedure Misha Weaevr MD Work Phone: [facility] Comment on above: Meningioma (HCC) (Pr imary Dx) Start: 03-16-2023 ambulatory WILLIAM AMADO [facility] Start: 03-16-2023 End: 03-16-2023 Patient encounter procedure Adelaida Lagunas APRN.STRATEGIC ACCOUNTS MANAGER Work Phone: Otolaryngology Comment on above: Pituitary adenoma (H CC) (Primary Dx); Acute sphenoidal sinusitis, recurrence not specified Start: 03-11-2023 ambulatory Alayna glynn MD Work Phone: [facility] Comment on above: APPT Start: 03-11-2023 E-mail encounter fro m caregiver Alayna Causey MD Work Phone: [facility] Start: 03-10-2023 End: 03-10-2023 [facility] Alayna Causey MD Work Phone: Endocrinology Comment on above: History of pituitary adenoma (Primary Dx); History of pituitary surgery; Low testosterone; Hypogonadism in male; Acquired hypothyroidism; Pituitary disorder (HCC); Oth postproc endocrine and metabolic comp and disorders; Follow-up exam Start: 02-24-2023 Telephone encounter Dolly de la rosa APRN.CNP Work Phone: [facility] Comment on above: Results NED f/u 2 weeks Start: 02-23-2023 Orders Only Dolly Lucas APRN.CNP Work Phone: [facility] Comment on above: Pituitary adenoma (H CC) (Primary Dx) Start: 02-07-2023 Telephone encounter Cna Pct RN [facility] Comment on above: Post Op Start: 01-13-2023 End: 01-13-2023 Office outpatient visit 15 minutes William Amado DO Work Phone: [facility] Comment on above: Essential hypertensi on (Primary Dx); Hypothyroidism, unspecified type; Hypertriglyceridemia; Pituitary neoplasm; Prediabetes; Elevated prostate specific antigen less than 10 ng/ml Start: 12-27-2022 Admission to [facility] Katherin Ruff RN Work Phone: [facility] Comment on above: Surgery Dates Start: 12-27-2022 E-mail encounter fro m caregiver Katherin Ruff RN Work Phone: [facility] Start: 12-24-2022 Telephone encounter Dolly de la rosa APRN.CNP Work Phone: [facility] Comment on above: Results Start: 12-20-2022 End: 12-20-2022 Subsequent hospital visit by physician [facility] (I-Stat/1.5t) Work Phone: Radiology Comment on above: Microadenoma [D36.9] Start: 11-25-2022 End: 11-25-[address] William Amado Work Phone: [facility] Start: 11-23-2022 End: 11-23-[address] William Amado Work Phone: [facility] Work Phone: Start: 11-23-2022 End: 11-23-[address] William Amado Work Phone: [facility] Start: 11-17-2022 End: 11-17-[address] William Amado Work Phone: [facility] Work Phone: Start: 11-17-2022 End: 11-17-[address] William Amado Work Phone: [facility] Start: 10-30-2022 End: 10-30-[address] William Amado Work Phone: [facility] Work Phone: Start: 10-30-2022 End: 10-30-[address] William Amado Work Phone: [facility] Start: 10-21-2022 End: 10-21-[address] William Amado Work Phone: [facility] Start: 09-23-2022 End: 09-23-[address] William Amado Work Phone: [facility] Start: 09-22-2022 End: 09-22-[address] William Amado Work Phone: [facility] Start: 08-24-2022 End: 08-24-[address] William Amado Work Phone: [facility] Start: 08-05-2022 End: 08-05-[address] William Amado Work Phone: [facility] Start: 07-28-2022 End: 07-28-[address] William Amado Work Phone: [facility] Start: 07-28-2022 End: 07-28-[address] William Amado Work Phone: [facility] [place] Start: 06-26-2022 End: 06-26-[address] William Amado Work Phone: [facility] Work Phone: Start: 06-26-2022 End: 06-26-[address] William Amado Work Phone: [facility] Start: 06-24-2022 End: 06-24-[address] William Amado Work Phone: [facility] Start: 06-08-2022 End: 06-08-[address] William Amado Work Phone: [facility] Start: 05-13-2022 End: 05-13-[address] William Amado Work Phone: [facility] Start: 05-13-2022 End: 05-13-[address] William Amado Work Phone: [facility] Start: 04-24-2022 End: 04-24-[address] William Amado Work Phone: [facility] Work Phone: Start: 04-24-2022 End: 04-24-[address] William Amado Work Phone: [facility] Start: 04-22-2022 End: 04-22-[address] William Amado Work Phone: [facility] Start: 03-25-2022 End: 03-25-[address] William Amado Work Phone: [facility] Start: 03-11-2022 End: 03-11-[address] William Amado Work Phone: [facility] Start: 02-25-2022 End: 02-25-[address] William Amado Work Phone: [facility] Start: 01-28-2022 End: 01-28-[address] William Amado Work Phone: [facility] Start: 12-31-2021 End: 12-31-[address] William Amado Work Phone: [facility] Start: 12-09-2021 End: 12-09-2021 ambulatory Dolly Lucas VIKY Work Phone: [facility] Comment on above: Microadenoma Start: 12-09-2021 End: 12-09-2021 Telemedicine consultation with patient Dolly Lucas APRSTEPHEN Work Phone: [facility] Start: 12-07-2021 End: 12-07-2021 Subsequent hospital visit by physician [facility] (I-Stat/1.5t) Work Phone: Radiology Comment on above: Microadenoma [D36.9] Procedures Date Procedure Procedure Detail Performing Clinician Start: 03-01-[address] William Amado DO Work Phone: Start: 01-04-2025 CT of thorax, abdomen and pelvis with contrast Dr. William Amado DO Work Phone: Start: 01-04-2025 Endomysial antibody IgA level Dr. William Amado DO Work Phone: Start: 01-04-2025 Gliadin antibody, IgA measurement Dr. Phong Amado DO Work Phone: Comment on above: Negative 0 - 19 Weak Positive 20 - 30 Mo derate to Strong Positive >30 Start: 01-04-2025 Gliadin antibody, IgG measurement Dr. Phong Amado DO Work Phone: Comment on above: Negative 0 - 19 Weak Positive 20 - 30 Mo derate to Strong Positive >30 Start: 01-04-[address] Esme Amado DO Work Phone: Start: 01-04-2025 Measurement of immunoglobulin A in serum specimen Dr. William Amado DO Work Phone: Start: 01-04-2025 Serum inorganic phosphate measurement Dr. William Amado DO Work Phone: Start: 01-04-2025 Total iron binding capacity measurement Dr. William Amado DO Work Phone: Start: 12-29-2024 Assay of prostate specific antigen total Dr. William Amado DO Work Phone: Comment on above: This test was performed using the [employer] tPSA method. Measured values of a patient sample can vary depending on the testing procedure used. PSA values determined on patient samples by different testing procedures cannot be used interchangeably. If there is a change in PSA assays while monitoring therapy, sequential testing should be performed to confirm baseline values. Start: 12-24-2024 Mri brain brain stem w/o w/contrast material Dolly Lucas APRN.STRATEGIC ACCOUNTS MANAGER Work Phone: Start: 12-06-2024 Measurement of occult blood in stool specimen using immunoassay Dr. William Amado DO Work Phone: Start: 12-05-[address] Esme Amado DO Work Phone: Start: 12-05-[address] William Amado DO Work Phone: Comment on above: Performed [facility] [id number] [place], [place] [id number] Director: Axel Cronin PhD, Phone: [phone] Start: 12-05-2024 Total iron binding capacity measurement Dr. William Amado DO Work Phone: Start: 12-05-2024 Urnls dip stick/tablet reagent auto microscopy Dr. William Amado DO Work Phone: Start: 10-27-2024 Electrophoresis: [id number] Dr. Phong Amado DO Work Phone: Start: 10-27-2024 Electrophoresis: [id number] Dr. Phong Amado DO Work Phone: Start: 10-27-2024 Electrophoresis: gamma globulin Dr. Timoteo Amado DO Work Phone: Start: 10-27-2024 Folic acid measurement, RBC Dr. William Amado DO Work Phone: Comment on above: Performed at: [employer] [id number] [place], [place] [id number] Director: Axel Cronin PhD, Phone: [phone] Start: 10-27-2024 Total iron binding capacity measurement Dr. William Amado DO Work Phone: Start: 10-27-2024 Vitamin D, 25-hydroxy measurement Dr. Phong Amado DO Work Phone: Comment on above: Vitamin D 25(OH) Status Range Deficiency <20 ng/mL (50nmol/L) Insufficiency 20 - 30 ng/mL (50 - 75 nmol/L) Sufficiency 30 - 100 ng/mL (75 - 250 nmol/L) Toxicity >100 ng/mL (>250 nmol/L) Start: 10-25-2024 Adult depression screening assessment William Amado DO Work Phone: Start: 07-11-2024 Adult depression screening assessment William Amado DO Work Phone: Start: 06-18-2024 Colonoscopy William Amado DO Work Phone: Start: 01-18-2024 Lipid 1996 panel - Serum or Plasma William Amado DO Work Phone: Start: 12-20-2023 Mri brain brain stem w/o w/contrast material Misha Weaver MD Work Phone: Start: 10-13-2023 INFLUENZA A&B MOLECULAR (POC) [place] Work Phone: Start: 04-12-2023 Thyrotropin [Units/volume] in Serum or Plasma William Amado DO Work Phone: Start: 01-13-2023 Lipid 1996 panel - Serum or Plasma William Amado DO Work Phone: Start: 12-20-2022 Mri brain brain stem w/o w/contrast material Dolly Lucas APRN.STRATEGIC ACCOUNTS MANAGER Work Phone: Start: 11-17-2022 MRI of pelvis with contrast Dr. William Amado Work Phone: Start: 05-13-2022 Lipid 1996 panel - Serum or Plasma William Amado DO Work Phone: Start: 12-07-2021 Mri brain brain stem w/o w/contrast material Dolly Lucas [employer]CH[employer]IC GENERAL [employer]PERATIONAL TEST.STRATEGIC ACCOUNTS MANAGER Work Phone: Start: 06-15-2021 Colonoscopy William Ortizmiltonred DO Work Phone: Start: 05-29-2018 Colonoscopy Mri (I-Stat/1.5t) Work Phone: Start: 06-22-2017 End: 06-23-2017 Appl modality 1/> areas elec stimj unattended Ivette B Dossi DC Work Phone: Start: 06-22-2017 End: 06-23-2017 Appl modality 1/> areas traction mechanical Ivette B Dossi DC Work Phone: Start: 06-22-2017 End: 06-23-2017 Chiropractic manipulative tx spinal 3-4 regions Ivette B Dossi DC Work Phone: Start: 06-22-2017 End: 06-22-2017 Dietary management education, guidance, and counseling Zhane Jones Start: 04-21-2011 Colonoscopy Dolly Lucas APRN.CNP Work Phone: H/O: surgery History of pitui tary surgery Alayna Causey MD Work Phone: H/O: surgery History of pitui tary surgery Alayna Causey MD Work Phone: H/O: surgery History of pitui tary surgery Dr. William Amado Work Phone: Comment on above: BRAIN SURGERY FOR PITUITARY TUMOR 2022 History of cholecystectomy Hx of cholecys tectomy Dr. William Amado Work Phone: Comment on above: 12/2015 History of tonsillectomy Hx of tonsillect michelle Dr. William Amado Work Phone: Plan of Treatment Date Care Activity Detail Author Start: 06-15-2031 Screening for malignant neoplasm of colon [facility] Start: 01-17-2029 Lipid panel Lipid Screening [facility] Start: 05-29-2028 Colonoscopy COLONOSCOPY [facility] Start: 05-29-2028 COLORECTAL CANCER SCREENING COLORECTAL CANCER SCREENING [facility] Start: 01-14-2028 Lipid panel Lipid Screening [facility] Start: 06-18-2027 Screening for malignant neoplasm of colon [facility] Start: 02-23-2026 Diabetes Screening Diabetes Screening [facility] Start: 12-19-2025 Glaucoma screening Diabetes: Retinopathy Screening [facility] Start: 10-25-2025 Depression Screening Depression Screening [facility] Start: 2025 Pneumococcal Vaccine: Pediatrics (0 to 5 Years) and At-Risk Patients (6 to 64 Years) (3 - PPSV23 or PCV20) Pneumococcal Vaccine: Pediatrics (0 to 5 Years) and At-Risk Patients (6 to 64 Years) (3 - PPSV23 or PCV20) [facility] Start: 2025 Pneumococcal Vaccine: Pediatrics (0 to 5 Years) and At-Risk Patients (6 to 64 Years) (3 of 3 - PPSV23 or PCV20) Pneumococcal Vaccine: Pediatrics (0 to 5 Years) and At-Risk Patients (6 to 64 Years) (3 of 3 - PPSV23 or PCV20) [facility] Start: 07-25-2025 End: 07-25-2025 Patient encounter procedure 07/25/2025 7:00 AM EST Office Visit [facility] [place] [address] [place] [id number] William Amado, [address] [place] [address] [facility] Start: 07-11-2025 Depression Screening Depression Screening [facility] Start: 03-01-2025 Egd transoral biopsy single/multiple EGD BIOPSY SINGLE/MULTIPLE [facility] Start: 03-01-2025 Patient discharge [facility] Start: 01-17-2025 Lipid panel Lipid Panel [facility] Start: 01-16-2025 Covid-19 Vaccine (7 - Moderna risk season) Covid-19 Vaccine (7 - Moderna risk season) [facility] Start: 01-10-2025 End: 01-10-2026 Lipid 1996 panel - Serum or Plasma Lipid panel Lab Routine Hypertriglyceridemia Expected: 01/10/2025 (Approximate), Expires: 01/10/2026 [facility] Work Phone: Comment on above: Expected: 01/10/2025 (Approximate), Expi res: 01/10/2026 Start: 01-10-2025 End: 01-10-2025 Patient encounter procedure 01/10/2025 7:00 AM EDT Office Visit [facility] [place] [address] [place] [address] William Amado, [address] [place] [address] [facility] Start: 12-13-2024 Patient referral [facility] Work Phone: Start: 12-01-2024 Glaucoma screening Diabetes: Retinopathy Screening [facility] Start: 10-25-2024 End: 10-25-2025 25-hydroxyvitamin D3 [Mass/volume] in Serum or Plasma Vitamin D Deficiency Screening (Vit D 25) Lab Routine Normochromic normocytic anemia Expected: 10/25/2024 (Approximate), Expires: 10/25/2025 [facility] Comment on above: Expected: 10/25/2024 (Approximate), Expi res: 10/25/2025 Start: 10-25-2024 End: 10-25-2025 CBC W Auto Differential panel - Blood CBC auto differential Lab Routine Normochromic normocytic anemia Expected: 10/25/2024 (Approximate), Expires: 10/25/2025 [facility] Comment on above: Expected: 10/25/2024 (Approximate), Expi res: 10/25/2025 Start: 10-25-2024 End: 10-25-2025 Cobalamin (Vitamin B12) [Mass/volume] in Serum or Plasma Vitamin B12 Lab Routine Normochromic normocytic anemia Expected: 10/25/2024 (Approximate), Expires: 10/25/2025 [facility] Comment on above: Expected: 10/25/2024 (Approximate), Expi res: 10/25/2025 Start: 10-25-2024 End: 10-25-2025 Ferritin [Mass/volume] in Serum or Plasma Ferritin Lab Routine Normochromic normocytic anemia Expected: 10/25/2024 (Approximate), Expires: 10/25/2025 [facility] Work Phone: Comment on above: Expected: 10/25/2024 (Approximate), Expi res: 10/25/2025 Start: 10-25-2024 End: 10-25-2025 Folate RBC Folate RBC Lab Routine Normochromic normocytic anemia Expected: 10/25/2024 (Approximate), Expires: 10/25/2025 [facility] Comment on above: Expected: 10/25/2024 (Approximate), Expi res: 10/25/2025 Start: 10-25-2024 End: 10-25-2025 Iron and Iron binding capacity panel - Serum or Plasma Iron and TIBC Lab Routine Normochromic normocytic anemia Expected: 10/25/2024 (Approximate), Expires: 10/25/2025 [facility] Comment on above: Expected: 10/25/2024 (Approximate), Expi res: 10/25/2025 Start: 10-25-2024 End: 10-25-2025 Thyrotropin [Units/volume] in Serum or Plasma TSH Lab Routine Normochromic normocytic anemia Expected: 10/25/2024 (Approximate), Expires: 10/25/2025 [facility] Comment on above: Expected: 10/25/2024 (Approximate), Expi res: 10/25/2025 Start: 10-25-2024 End: 10-25-2025 Thyroxine (T4) free [Mass/volume] in Serum or Plasma T4, free Lab Routine Normochromic normocytic anemia Expected: 10/25/2024 (Approximate), Expires: 10/25/2025 [facility] Comment on above: Expected: 10/25/2024 (Approximate), Expi res: 10/25/2025 Start: 10-25-2024 End: 10-25-2025 Triiodothyronine (T3) Free [Mass/volume] in Serum or Plasma T3, free Lab Routine Normochromic normocytic anemia Expected: 10/25/2024 (Approximate), Expires: 10/25/2025 [facility] Comment on above: Expected: 10/25/2024 (Approximate), Expi res: 10/25/2025 Start: 07-11-2024 End: 07-11-2024 Patient encounter procedure 07/11/2024 7:30 AM EST Office Visit [facility] [address] [place] [address] William Amado DO [address] [place] [address] [place] [address] [facility] Start: 05-06-2024 COVID-19 Vaccine ( season) COVID-19 Vaccine ( season) [facility] Start: 05-06-2024 Influenza vaccination Influenza Vaccine (Season Ended) [facility] Start: 04-12-2024 Thyroid stimulating hormone measurement TSH Level [facility] Start: 02-24-2024 Diabetes: Estimated Glomerular Filtration Rate for Kidney Health Diabetes: Estimated Glomerular Filtration Rate for Kidney Health [facility] Start: 01-18-2024 End: 01-17-2025 Lipid 1996 panel - Serum or Plasma Lipid panel Lab Routine Hypertriglyceridemia Expected: 01/18/2024 (Approximate), Expires: 01/17/2025 [facility] Work Phone: Comment on above: Expected: 01/18/2024 (Approximate), Expi res: 01/17/2025 Start: 01-18-2024 End: 01-18-2024 Patient encounter procedure 01/18/2024 8:00 AM EDT Office Visit [facility] [address] [place] [address] William Amado DO [address] [place] [address] [facility] Start: 01-14-2024 Hepatitis B surface antibody level LDL CHOLESTEROL [facility] Start: 01-14-2024 Lipid panel Lipid Panel [facility] Start: 11-28-2023 Glaucoma screening Diabetes: Retinopathy Screening [facility] Start: 10-27-2023 Covid-19 Vaccine () Covid-19 Vaccine () [facility] Start: 09-05-2023 Behavioral Health Screening Behavioral Health Screening [facility] Start: 09-05-2023 Depression Assessment Depression Assessment [facility] Start: 07-20-2023 End: 07-20-2023 Patient encounter procedure 07/20/2023 Office Visit Family Medicine William Amado DO [address] [place] [address] [facility] Start: 05-13-2023 Lipid panel Lipid Panel [facility] Start: 05-06-2023 Covid-19 Vaccine () Covid-19 Vaccine () [facility] Start: 05-06-2023 Influenza vaccination [facility] Start: 04-14-2023 End: 06-14-2023 Corticotropin [Mass/volume] in Plasma ACTH BLD Lab Routine History of pituitary adenoma History of pituitary surgery Low testosterone Hypogonadism in male Acquired hypothyroidism Pituitary disorder (HCC) Other postprocedural endocrine and metabolic complications and disorders Follow-up exam Expected: 04/14/2023, Expires: 06/14/2023 [facility] Work Phone: Comment on above: Expected: 04/14/2023, Expires: 3 Start: 04-14-2023 End: 06-14-2023 Cortisol [Mass/volume] in Serum or Plasma CORTISOL BLD Lab Routine History of pituitary adenoma History of pituitary surgery Low testosterone Hypogonadism in male Acquired hypothyroidism Pituitary disorder (HCC) Other postprocedural endocrine and metabolic complications and disorders Follow-up exam Expected: 04/14/2023, Expires: 06/14/2023 [facility] Work Phone: Comment on above: Expected: 04/14/2023, Expires: 3 Start: 03-18-2023 End: 05-18-2023 Corticotropin [Mass/volume] in Plasma ACTH BLD Lab Routine Pituitary adenoma (HCC) Expected: 03/18/2023, Expires: 05/18/2023 [facility] Work Phone: Comment on above: Expected: 03/18/2023, Expires: 3 Start: 03-16-2023 End: 05-16-2023 Corticotropin [Mass/volume] in Plasma ACTH BLD Lab Routine History of pituitary adenoma History of pituitary surgery Low testosterone Hypogonadism in male Acquired hypothyroidism Pituitary disorder (HCC) Oth postproc endocrine and metabolic comp and disorders Follow-up exam Expected: 03/16/2023, Expires: 05/16/2023 [facility] Work Phone: Comment on above: Expected: 03/16/2023, Expires: 3 Start: 03-16-2023 End: 05-16-2023 Cortisol [Mass/volume] in Serum or Plasma CORTISOL BLD Lab Routine History of pituitary adenoma History of pituitary surgery Low testosterone Hypogonadism in male Acquired hypothyroidism Pituitary disorder (HCC) Oth postproc endocrine and metabolic comp and disorders Follow-up exam Expected: 03/16/2023, Expires: 05/16/2023 [facility] Work Phone: Comment on above: Expected: 03/16/2023, Expires: 3 Start: 03-16-2023 End: 05-16-2023 Follitropin [Units/volume] in Serum or Plasma FSH BLD Lab Routine History of pituitary adenoma History of pituitary surgery Low testosterone Hypogonadism in male Acquired hypothyroidism Pituitary disorder (HCC) Oth postproc endocrine and metabolic comp and disorders Follow-up exam Expected: 03/16/2023, Expires: 05/16/2023 [facility] Work Phone: Comment on above: Expected: 03/16/2023, Expires: 3 Start: 03-16-2023 End: 05-16-2023 INSULIN LIK GR FAC I INSULIN LIK GR FAC I Lab Routine History of pituitary adenoma History of pituitary surgery Low testosterone Hypogonadism in male Acquired hypothyroidism Pituitary disorder (HCC) Oth postproc endocrine and metabolic comp and disorders Follow-up exam Expected: 03/16/2023, Expires: 05/16/2023 [facility] Work Phone: Comment on above: Expected: 03/16/2023, Expires: 3 Start: 03-16-2023 End: 05-16-2023 Lutropin [Units/volume] in Serum or Plasma LUTEINIZING HORMONE Lab Routine History of pituitary adenoma History of pituitary surgery Low testosterone Hypogonadism in male Acquired hypothyroidism Pituitary disorder (HCC) Oth postproc endocrine and metabolic comp and disorders Follow-up exam Expected: 03/16/2023, Expires: 05/16/2023 [facility] Work Phone: Comment on above: Expected: 03/16/2023, Expires: 3 Start: 03-16-2023 End: 05-16-2023 Prolactin [Mass/volume] in Serum or Plasma PROLACTIN BLD Lab Routine History of pituitary adenoma History of pituitary surgery Low testosterone Hypogonadism in male Acquired hypothyroidism Pituitary disorder (HCC) Oth postproc endocrine and metabolic comp and disorders Follow-up exam Expected: 03/16/2023, Expires: 05/16/2023 [facility] Work Phone: Comment on above: Expected: 03/16/2023, Expires: 3 Start: 03-16-2023 End: 05-16-2023 Somatostatin [Mass/volume] in Plasma GROWTH HORMONE Lab Routine History of pituitary adenoma History of pituitary surgery Low testosterone Hypogonadism in male Acquired hypothyroidism Pituitary disorder (HCC) Oth postproc endocrine and metabolic comp and disorders Follow-up exam Expected: 03/16/2023, Expires: 05/16/2023 [facility] Work Phone: Comment on above: Expected: 03/16/2023, Expires: 3 Start: 03-16-2023 End: 05-16-2023 Thyrotropin [Units/volume] in Serum or Plasma TSH BLD Lab Routine History of pituitary adenoma History of pituitary surgery Low testosterone Hypogonadism in male Acquired hypothyroidism Pituitary disorder (HCC) Oth postproc endocrine and metabolic comp and disorders Follow-up exam Expected: 03/16/2023, Expires: 05/16/2023 [facility] Work Phone: Comment on above: Expected: 03/16/2023, Expires: 3 Start: 03-16-2023 End: 05-16-2023 Thyroxine (T4) free [Mass/volume] in Serum or Plasma T4 FREE/FREE THYROX Lab Routine History of pituitary adenoma History of pituitary surgery Low testosterone Hypogonadism in male Acquired hypothyroidism Pituitary disorder (HCC) Oth postproc endocrine and metabolic comp and disorders Follow-up exam Expected: 03/16/2023, Expires: 05/16/2023 [facility] Work Phone: Comment on above: Expected: 03/16/2023, Expires: 3 Start: 02-23-2023 End: 04-25-2023 Cortisol [Mass/volume] in Serum or Plasma [facility] Work Phone: Comment on above: Expected: 02/23/2023, Expires: 3 Start: 02-23-2023 End: 04-25-2023 Thyrotropin [Units/volume] in Serum or Plasma [facility] Work Phone: Comment on above: Expected: 02/23/2023, Expires: 3 Start: 02-23-2023 End: 04-25-2023 Thyroxine (T4) free [Mass/volume] in Serum or Plasma [facility] Work Phone: Comment on above: Expected: 02/23/2023, Expires: 3 Start: 02-11-2023 Diabetes: Estimated Glomerular Filtration Rate for [facility] Diabetes: Estimated Glomerular Filtration Rate for Kid[facility] Health [facility] Start: 02-11-2023 Hemoglobin A1c measurement Diabetes: Hemoglobin A1C [facility] Start: 01-13-2023 End: 01-14-2024 Lipid 1996 panel - Serum or Plasma Lipid panel Lab Routine Hypertriglyceridemia Expected: 01/13/2023 (Approximate), Expires: 01/14/2024 [facility] Work Phone: Comment on above: Expected: 01/13/2023 (Approximate), Expi res: 01/14/2024 Start: 09-05-2022 DEPRESSION ASSESSMENT DEPRESSION ASSESSMENT [facility] Start: 08-13-2022 Hemoglobin A1c measurement HbA1C [facility] Start: 05-14-2022 Hemoglobin A1c measurement Diabetes: Hemoglobin A1C [facility] Start: 05-03-2022 COVID-19 VACCINE (5 - Booster for Moderna series) COVID-19 VACCINE (5 - Booster for Moderna series) [facility] Start: 05-03-2022 COVID-19 VACCINE (5 - Moderna risk series) COVID-19 VACCINE (5 - Moderna risk series) [facility] Start: 11-17-2021 Pneumococcal Vaccine: 50+ Years (3 of 3 - PCV20 or PCV21) Pneumococcal Vaccine: 50+ Years (3 of 3 - PCV20 or PCV21) [facility] Start: 11-04-2021 COVID-19 VACCINE (4 - Booster for Moderna series) COVID-19 VACCINE (4 - Booster for Moderna series) [facility] Start: 04-30-2021 DTaP/Tdap/Td Vaccines (2 - Td or Tdap) DTaP/Tdap/Td Vaccines (2 - Td or Tdap) [facility] Start: 04-30-2021 Urine microalbumin profile DTaP,Tdap,Td Vaccine (2 - Td or Tdap) [facility] Start: 04-21-2021 Colonoscopy COLONOSCOPY [facility] Start: 04-21-2021 COLORECTAL CANCER SCREENING COLORECTAL CANCER SCREENING [facility] Start: 04-21-2021 Screening for malignant neoplasm of colon [facility] Start: 2020 Hepatitis B Vaccine (1 of 3 - Risk 3-dose series) Hepatitis B Vaccine (1 of 3 - Risk 3-dose series) [facility] Start: 2020 RSV Immunization aged 60 or older (1 - 1-dose 60+ series) RSV Immunization aged 60 or older (1 - 1-dose 60+ series) [facility] Start: 2020 RSV Vaccine (1 - 1-dose 60+ series) RSV Vaccine (1 - 1-dose 60+ series) [facility] Start: 11-17-2017 Pneumococcal vaccination Pneumococcal Vaccine (3 - PPSV23 or PCV20) [facility] Start: 04-21-2017 LIPID SCREEN LIPID SCREEN [facility] Start: 04-21-2017 Pneumococcal vaccination Pneumococcal Vaccine (3 of 3 - PPSV23 or PCV20) [facility] Start: 04-21-2017 Pneumococcal Vaccine: 50+ (3 of 3 - PPSV23, PCV20 or PCV21) Pneumococcal Vaccine: 50+ (3 of 3 - PPSV23, PCV20 or PCV21) [facility] Start: 03-09-2017 DIABETES SCREEN DIABETES SCREEN [facility] Start: 2015 PROSTATE CANCER SCREENING DISCUSSION PROSTATE CANCER SCREENING DISCUSSION [facility] Start: 2015 Prostate specific antigen measurement Prostate Cancer Screening Discussion [facility] Start: 2010 SHINGRIX VACCINE (1 of 2) SHINGRIX VACCINE (1 of 2) [facility] Start: 2005 COLOGUARD (FIT-DNA) COLOGUARD (FIT-DNA) [facility] Start: [address] COLONOGRAPHY [facility] Start: 2005 FECAL OCCULT BLOOD FECAL OCCULT BLOOD [facility] Start: 2005 Screening for malignant neoplasm of colon [facility] Start: 2005 SIGMOIDOSCOPY SIGMOIDOSCOPY [facility] Start: 1979 SHINGRIX VACCINE (1 of 2) SHINGRIX VACCINE (1 of 2) [facility] Start: 1979 Urine microalbumin profile DTAP,TDAP,TD (1 - Tdap) [facility] Start: 1979 Urine screening for protein Diabetes: Urine Protein Screening [facility] Start: 1978 ANNUAL PCP TEAM CHRONIC DISEASE VISIT ANNUAL PCP TEAM CHRONIC DISEASE VISIT [facility] Start: 1978 Anxiety Screening Anxiety Screening [facility] Start: 1978 BP CONTROLLED (<130/80) BP CONTROLLED (<130/80) [facility] Start: 1978 Depression Screening Depression Screening [facility] Start: 1978 Diabetes: Urine Albumin-Creatinine Ratio for Kidney Health Diabetes: Urine Albumin-Creatinine Ratio for Kid[facility] Start: 1978 HEPATITIS C SCREENING HEPATITIS C SCREENING [facility] Start: 1978 Hepatitis C screening Hepatitis C Screening [facility] Start: 1978 HIV SCREENING HIV SCREENING [facility] Start: 1978 HIV screening HIV Screening [facility] Start: 1972 Adult depression screening assessment DEPRESSION SCREENING [facility] Start: 1970 3 comp foot exam completed DIABETIC FOOT EXAM [facility] Start: 1970 Diabetic foot examination [facility] Start: 1970 Glaucoma screening [facility] Start: 1970 Hepatitis B screening URINE ALBUMIN:CREATININE RATIO [facility] Start: 1970 Hepatitis C antibody, confirmatory test DILATED RETINAL EXAM [facility] Start: 1970 Preventive dental service Diabetes: Dental Exam [facility] Start: 1966 PNEUMOCOCCAL (1 - PCV) PNEUMOCOCCAL (1 - PCV) [facility] Start: 1965 Hemoglobin A1c/Hemoglobin.total in Blood HBA1C [facility] Start: 1961 MMR Vaccines (1 of 1 - Standard series) MMR Vaccines (1 of 1 - Standard series) [facility] Start: 1960 Hepatitis B Vaccines (1 of 3 - 3-dose series) Hepatitis B Vaccines (1 of 3 - 3-dose series) [facility] Start: 1960 HIV screening HIV Screening [facility] Start: 1960 Screening for malignant neoplasm of colon [facility] Start: 1960 Thyroglobulin Test Thyroglobulin Test [facility] Start: 1960 Thyroid Cancer Ultrasound Thyroid Cancer Ultrasound [facility] Start: 1960 Thyroid stimulating hormone measurement TSH Level [facility] CBC W Auto Different ial panel - Blood [facility] Cobalamin (Vitamin B 12) [Mass/volume] in Serum or Plasma [facility] Comprehensive metabo lic 2000 panel - Serum or Plasma [facility] COVID & INFLUENZA A/ B & RSV NAAT, ROUTINE COVID & INFLUENZA A/B & RSV NAAT, ROUTINE Microbiology Routine Flu-like symptoms 10/13/2023 4:50 PM EST [facility] Work Phone: Erythropoietin (EPO) [Units/volume] in Serum or Plasma [facility] Ferritin [Mass/volum e] in Serum or Plasma [facility] Folate [Moles/volume ] in Serum or Plasma [facility] Folate [Moles/volume ] in Serum or Plasma [facility] Iron and Iron bindin g capacity panel - Serum or Plasma [facility] Laboratory test [facility] Lactate dehydrogenas e measurement [facility] End: 01-20-2025 MR Pituitary and Sella turcica WO and W contrast IV MRI PITUITARY WO/W IVCON Radiology Routine Other postprocedural endocrine and metabolic complications and disorders 1 Occurrences starting 12/22/2023 until 01/20/2025 [facility] Work Phone: Comment on above: 1 Occurrences starting 12/22/2023 until 01/20/2025 End: 01-08-2023 Mri brain brain stem w/o w/contrast material MRI PITUITARY WO/W IVCON Radiology Routine Microadenoma 1 Occurrences starting 12/09/2021 until 01/08/2023 [facility] Work Phone: Comment on above: 1 Occurrences starting 12/09/2021 until 01/08/2023 Patient referral [facility] Work Phone: Protein [Mass/volume ] in Serum or Plasma Protein, total Lab Routine Normochromic normocytic anemia Ordered: 10/25/2024 [facility] Comment on above: Ordered: 10/25/2024 Protein, Total and Protein Electrophoresis Protein, Total and Protein Electrophoresis Lab Routine Normochromic normocytic anemia Ordered: 10/25/2024 [facility] Comment on above: Ordered: 10/25/2024 Serum Electrophoresis Serum Elec trophoresis Lab Routine Normochromic normocytic anemia Ordered: 10/25/2024 [facility] Comment on above: Ordered: 10/25/2024 Vitamin B12 measurement [facility] Work Phone: [facility] Immunizations Immunization Date Immunization Notes Care Provider Fa cility 01-10-2025 Pneumococcal Conjuga te PCV20, Pf (Prevnar 20) William Amado DO Work Phone: [facility] 07-19-2024 COVID-19, mRNA, LNP- S, PF, 50 mcg/0.5 mL William Amado DO Work Phone: [facility] 07-09-2024 influenza, seasonal, injectable William Amado DO Work Phone: [facility] 07-06-2024 influenza, high dose seasonal, preservative-free William Amado DO Work Phone: [facility] 09-01-2023 RSV, recombinant, pr otein subunit RSVpreF, adjuvant reconstituted, 0.5 mL, PF William Amado DO Work Phone: [facility] 06-10-2023 influenza, high dose seasonal, preservative-free William Arangoa DO Work Phone: [facility] 07-24-2022 zoster vaccine recombinant E ugene Petrilla DO Work Phone: [facility] 04-24-2022 zoster vaccine recombinant E ugene Ardenlla DO Work Phone: [facility] 07-05-2021 influenza, injectabl e, quadrivalent, contains preservative William Amado DO Work Phone: [facility] 07-05-2021 influenza virus vacc ine, unspecified formulation William Amado DO Work Phone: [facility] 06-13-2020 influenza, injectabl e, quadrivalent, preservative free William Ortizlla DO Work Phone: [facility] 06-16-2018 influenza, injectabl e, quadrivalent, contains preservative William Ortizlla DO Work Phone: [facility] 11-17-2016 pneumococcal conjuga te vaccine, 13 valent William Ortizlla DO Work Phone: [facility] 06-06-2015 influenza virus vacc ine, unspecified formulation William Ortizlla DO Work Phone: [facility] 06-06-2015 influenza virus vacc ine, whole virus William Ortizlla DO Work Phone: [facility] 11-04-2014 influenza virus vacc ine, whole virus William Ortizlla DO Work Phone: [facility] 07-06-2013 influenza virus vacc ine, unspecified formulation William Arangoa DO Work Phone: [facility] 07-06-2013 influenza virus vacc ine, whole virus William Ortizlla DO Work Phone: [facility] 04-21-2012 pneumococcal polysac charide vaccine, 23 valent William Ortizlla DO Work Phone: [facility] 04-30-2011 tetanus toxoid, redu eduardo diphtheria toxoid, and acellular pertussis vaccine, adsorbed William Amado DO Work Phone: [facility] 07-04-2009 influenza virus vacc ine, whole virus William Ortizlla DO Work Phone: [facility] Payers Date Payer Category Payer Self-pay [id number] 2022 Justo Wilkins [facility] VERNA BREWER [id number] 2019 [employer] Blue Shield BLUE ACCE SS PPO [id number] 2019 Unknown ANTHEM BLUE ACCE SS PPO [id number] 2019-Present [phone] [id number] PPO [id number] 2019 Unknown [id number]. [id number] 2015 Unknown [id number] Medicare ANTHEM MEDICARE PPO [id number] Unknown [id number] [id number]. 2.462 Unknown [id number] 2.0.1.446296.3.579. 2.462 Unknown [id number] 2.0.1.908144.3.579. 2.462 Unknown [id number] 2.0.1.717442.3.579. 2.462 Unknown [id number] 2.16.840.1.105145.3.579. 2.462 Unknown [id number] 2.16.840.1.014654.3.579. 2.462 Unknown [id number] 2.16.840.1.369143.3.579. 2.462 Unknown [id number] 2.16.840.1.120454.3.579. 2.462 Unknown [id number] 2.16840.1.450883.3.579. 2.462 Unknown [id number] 2.16840.1.940816.3.579. 2.462 Unknown [id number] 2.16840.1.725176.3.579. 2.462 Unknown [id number] 2.840.1.446552.3.579. 2.462 Unknown [id number] 2.840.1.237716.3.579. 2.462 Unknown [id number] 2.840.1.677383.3.579. 2.462 Unknown [id number] 2.840.1.623222.3.579. 2.462 Unknown [id number] 2.840.1.331325.3.579. 2.462 Unknown [id number] 2.840.1.666797.3.579. 2.462 Unknown [id number] 2.16840.1.477606.3.579. 2.462 Unknown [id number] 2.16840.1.895407.3.579. 2.462 Unknown [id number] 2.16.840.1.446656.3.579. 2.462 Unknown [id number] 2.16840.1.540588.3.579. 2.462 Unknown [id number] 2.16840.1.605656.3.579. 2.462 Unknown [id number] 2.16.840.1.184123.3.579. 2.462 Unknown [id number] 2.16.840.1.983103.3.579. 2.462 Unknown [id number] 2.16.840.1.805931.3.579. 2.462 Unknown [id number] 2.16.840.1.767899.3.579. 2.462 Unknown [id number] 2.16.840.1.558002.3.579. 2.462 Unknown [id number] 2.16.840.1.506446.3.579. 2.462 Unknown [id number] 2.16.840.1.116589.3.579. 2.462 Unknown [id number] 2.16840.1.935662.3.579. 2.462 Unknown [id number] 2.16840.1.105841.3.579. 2.462 Unknown [id number] 2.16.840.1.911809.3.579. 2.462 Unknown [id number] 2.16840.1.564574.3.579. 2.462 Unknown [id number] 2.16840.1.679825.3.579. 2.462 Unknown [id number] 2.16840.1.579156.3.579. 2.462 Unknown [id number] 2.16840.1.975230.3.579. 2.462 Unknown [id number] 2.16840.1.022481.3.579. 2.462 Social History Date Type Detail Facility Start: 05-24-2012 End: 02-27-2025 Tobacco smoking status NHIS Never smoked tobacco [facility] Start: 05-24-2012 Tobacco use and exposure Smokeless tobacco non-user [facility] Start: 05-14-2020 End: 01-10-2025 Alcohol intake Current non-drinker of alcohol (finding) [facility] Start: 1960 Sex Assigned At Not on file [facility] Start: 04-22-2022 End: 12-15-2023 Tobacco smoking status NHIS Unknown if ever smoked [facility] Start: 1960 Sex Assigned At Male [facility] Start: 01-13-2023 End: 07-11-2024 Alcohol intake [facility] Start: 01-03-2023 End: 01-13-2023 Exposure to SARS-CoV-2 (event) Not sure [facility] Start: 03-16-2023 End: 07-11-2024 Tobacco use panel [facility] National Score (1-10 0), lower number is lower risk 99 [facility] Start: 08-11-2022 Gender identity Identifies as male gender (finding) [facility] Has the [employer], [employer], oil, or water company threatened to shut off services in your home in past 12Mo No [facility] Are you now , , , , never or living with a partner? [facility] Do you feel stress - tense, restless, nervous, or anxious, or unable to sleep at night because your mind is troubled all the time - these days [OSQ] Not at all [facility] (I/We) worried wheth er (my/our) food would run out before (I/we) got money to buy more. Never true [facility] Start: 04-05-2022 End: 12-11-2024 Sex Male (finding) [facility] Medical Equipment Procedure Code Equipment Code Equipment Origin al Text Equipment Identifier Dates [id number] Start: 02-11-2022 Lancets (OneTouc h Delica Plus [id number]) [facility] [place] [id number] Start: 02-11-2022 OneTouch Verio t est strip [id number] Start: 02-11-2022 Patch Durepair Bovine Collagen Matrix 1x1in Dural Resorbable Duraplasty - [id number] Start: 02-03-2023 Blood Sugar Diagnostic (Onetouch Verio Test Strips) strip Start: 06-30-2023 Lancets (Onetouc h Delica Plus Lancet) 33 gauge [facility] [place] Start: 07-05-2023 Blood Sugar Diagnostic (Onetouch Verio Test Strips) strip Start: 07-26-2024 Lancets (Onetouc h Delica Plus Lancet) 33 gauge misc Start: 10-15-2024 Blood Sugar Diagnostic (Onetouch Verio Test Strips) strip Start: 06-30-2023 End: 07-26-2024 Lancets (Onetouc h Delica Plus Lancet) 33 gauge misc Start: 07-05-2023 End: 10-15-2024 Lancets (Onetouc h Delica Plus Lancet) 33 gauge misc Start: 10-15-2024 End: 10-15-2024 Blood Sugar Diagnostic (Onetouch Verio Test Strips) strip Start: 07-26-2024 Lancets (Onetouc h Delica Plus Lancet) 33 gauge misc Start: 10-15-2024 Blood Sugar Diagnostic (Onetouch Verio Test Strips) strip Start: 06-30-2023 End: 07-26-2024 Lancets (Onetouc h Delica Plus Lancet) 33 gauge misc Start: 07-05-2023 End: 10-15-2024 Lancets (Onetouc h Delica Plus Lancet) 33 gauge misc Start: 10-15-2024 End: 10-15-2024 Blood Sugar Diagnostic (Onetouch Verio Test Strips) strip Start: 07-26-2024 Lancets (Onetouc h Delica Plus Lancet) 33 gauge misc Start: 10-15-2024 Blood Sugar Diagnostic (Onetouch Verio Test Strips) strip Start: 06-30-2023 End: 07-26-2024 Lancets (Onetouc h Delica Plus Lancet) 33 gauge misc Start: 07-05-2023 End: 10-15-2024 Lancets (Onetouc h Delica Plus Lancet) 33 gauge misc Start: 10-15-2024 End: 10-15-2024 Lancets (Onetouc h Delica Plus Lancet) 33 gauge misc Start: 10-15-2024 Blood Sugar Diagnostic (Onetouch Verio Test Strips) strip Start: 07-26-2024 End: 02-21-2025 Blood Sugar Diagnostic (Onetouch Verio Test Strips) strip Start: 06-30-2023 End: 07-26-2024 Lancets (Onetouc h Delica Plus Lancet) 33 gauge misc Start: 07-05-2023 End: 10-15-2024 Lancets (Onetouc h Delica Plus Lancet) 33 gauge misc Start: 10-15-2024 End: 10-15-2024 Lancets (Onetouc h Delica Plus Lancet) 33 gauge misc Start: 10-15-2024 Blood Sugar Diagnostic (Onetouch Verio Test Strips) strip Start: 07-26-2024 End: 02-21-2025 Blood Sugar Diagnostic (Onetouch Verio Test Strips) strip Start: 06-30-2023 End: 07-26-2024 Lancets (Onetouc h Delica Plus Lancet) 33 gauge misc Start: 07-05-2023 End: 10-15-2024 Lancets (Onetouc h Delica Plus Lancet) 33 gauge misc Start: 10-15-2024 End: 10-15-2024 Blood Sugar Diagnostic (Freestyle Lite Strips) strip Start: 02-22-2025 Lancets (Freesty le Lancets) 28 gauge misc Start: 02-22-2025 Lancets (Onetouc h Delica Plus Lancet) 33 gauge misc Start: 10-15-2024 Blood Sugar Diagnostic (Onetouch Verio Test Strips) strip Start: 07-26-2024 End: 02-21-2025 Blood Sugar Diagnostic (Onetouch Verio Test Strips) strip Start: 06-30-2023 End: 07-26-2024 Lancets (Onetouc h Delica Plus Lancet) 33 gauge misc Start: 07-05-2023 End: 10-15-2024 Lancets (Onetouc h Delica Plus Lancet) 33 gauge misc Start: 10-15-2024 End: 10-15-2024 Blood Sugar Diagnostic (Freestyle Lite Strips) strip Start: 02-22-2025 Lancets (Freesty le Lancets) 28 gauge misc Start: 02-22-2025 Lancets (Onetouc h Delica Plus Lancet) 33 gauge misc Start: 10-15-2024 Blood Sugar Diagnostic (Onetouch Verio Test Strips) strip Start: 07-26-2024 End: 02-21-2025 Blood Sugar Diagnostic (Onetouch Verio Test Strips) strip Start: 06-30-2023 End: 07-26-2024 Lancets (Onetouc h Delica Plus Lancet) 33 gauge misc Start: 07-05-2023 End: 10-15-2024 Lancets (Onetouc h Delica Plus Lancet) 33 gauge misc Start: 10-15-2024 End: 10-15-2024 Blood Sugar Diagnostic (Freestyle Lite Strips) strip Start: 02-22-2025 Lancets (Freesty le Lancets) 28 gauge misc Start: 02-22-2025 Lancets (Onetouc h Delica Plus Lancet) 33 gauge misc Start: 10-15-2024 Blood Sugar Diagnostic (Onetouch Verio Test Strips) strip Start: 07-26-2024 End: 02-21-2025 Blood Sugar Diagnostic (Onetouch Verio Test Strips) strip Start: 06-30-2023 End: 07-26-2024 Lancets (Onetouc h Delica Plus Lancet) 33 gauge misc Start: 07-05-2023 End: 10-15-2024 Lancets (Onetouc h Delica Plus Lancet) 33 gauge misc Start: 10-15-2024 End: 10-15-2024 Goals Date Patient Goal Desired Activity /State Functional Status Date Assessment Result Facility 02-05-2023 Are you deaf, or do you have serious difficulty hearing No 02/05/2023 9:47 AM Ifrah Sorto, DHIRAJ No [facility] 02-05-2023 Are you blind, or do you have serious difficulty seeing, even when wearing glasses No 02/05/2023 9:47 AM Ifrah Sorto, DHIRAJ No [facility] 02-05-2023 Do you have serious difficulty walking or climbing stairs No 02/05/2023 9:47 AM Ifrah Sorto, DHIRAJ No [facility] 02-05-2023 Do you have difficul ty dressing or bathing No 02/05/2023 9:47 AM Ifrah Sorto, DHIRAJ No [facility] 02-05-2023 Because of a physica l, mental, or emotional condition, do you have difficulty doing errands alone such as visiting a physician's office or shopping No 02/05/2023 9:47 AM EDT Ifrah Hi RN No [facility] Mental Status Date Assessment Result Facility 03-01-2025 Cognitive function Voice/Name [facility] Work Phone: 02-05-2023 Because of a physica l, mental, or emotional condition, do you have serious difficulty concentrating, remembering, or making decisions No 02/05/2023 9:47 AM EDT Ifrah Hi RN No [facility] Clinical Notes 11-24-2012 to 03-01-2025 Note Date & Type Note Facility 03-01-2025 Consult note Note Date/Time March 01, 2025 6:25am [facility] Medical Records Department [address] [place] [address] Pre-Anesthesia Evaluation 03/01/25620 MR#: [id number] Acct: [id number] Name: MYRANDA OLEA Rep #:[id number] : 1960 64 From: Estelle Palmer CRNA PCP: Dr. William Amado, DO Status: G [facility] Y Race: C Location: [place] [address] ASA Classification* ASA Classification ASA Classification: 3 Assessment & Plan Anesthesia* Anesthesia Assessment Anesthesia Assessment: Discussed sedation and/or anesthesia options, risks, benefits, and alternatives with patient/parents/legal guardian/POA. Questions invited. The patient/parents/legal guardian/POA seems to understand and agrees to proceedwith anesthesia plan. Reviewed the physical assessment, medical history, allergy history and patient home medications list prior to surgery/procedure/anesthetic and documented any changes. Performed airway and anesthesia risk assessments. Anesthesia Type Anesthesia Type: MAC History Source History Obtained from:: Patient and Chart Anesthesia Focused Assessment* Temperature: 97.7 F Pulse Rate: 63 Blood Pressure: 160/89 Respiratory Rate: 16 Pulse Ox: 98 Oxygen Delivery Method: Room Air Airway Assessment Mouth opens: >3 cm Mallampati Score: III Teeth Condition: Intact Neck Range of motion (ROM): Full ROM Labs Anesthesia Preop lab: CBC WBC 6.1 K/mm3 (4.4-11.0) 01/04/25 15:20 01/04/25 RBC 4.19 M/mm3 (4.6-6.2) L 01/04/25 15:20 01/04/25 Hgb 12.2 g/dL (13.0-16.5) L 01/04/25 15:20 5 Hct 38.0 % (40-54) L 01/04/25 15:20 01/04/25 Plt Count 267 K/mm3 (150-450) 01/04/25 15:20 01/04/25 CHEMISTRY Potassium 3.8 mmol/L (3.3-5.1) 01/04/25 15:20 01/04/25 Sodium 141 mmol/L (133-145) 01/04/25 15:20 01/04/25 Magnesium 2.5 mg/dL (1.5-2.2) H 01/04/25 15:20 01/04/25 Phosphorus 3.3 mg/dL (2.7-4.5) 01/04/25 15:20 01/04/25 BUN 17 mg/dL (4-19) 01/04/25 15:20 01/04/25 Creatinine 1.11 mg/dL (0.70-1.20) 01/04/25 15:20 01/04/25 Glucose 110 mg/dL (70-99) H 01/04/25 15:20 01/04/25 POC Glucose 108 mg/dL (74-106) H 06/18/24 06:28 06/18/24 TSH 2.990 uIU/mL (0.358-3.740) 10/27/24 09:18 10/07 10/30 COAG PT 16.1 SECONDS (11.7-14.9) H 12/23/15 05:34 12/04 05/21 Pre-Assessment Diagnosis/Proposed Procedure Planned Operative Procedure(s): EGD Anesthesia History 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 When Was Last Pacemaker Check QUESTION #4 FULL TEXT: You/Your Family Experience fever (hyperthermia) with Anesthesia Any additional information?: No Last Oral Intake Last Oral intake: Last Oral Intake NPO since Meds taken in AM with sips of water? 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 Female No 02/27/25 16:15 HX of Motion Sickness No 02/27/25 16:15 HX of N/V After Surgery No 02/27/25 16:15 Non-Smoker Yes 02/27/25 16:15 Duration of Surgery greater No 02/27/25 16:15 than 60 minutes Number of Risk Factors 1 02/27/25 16:15 PONV Score Low Risk 02/27/25 16:15 Any additional information?: No Height & Weight Height & Weight: Anesthesia: Height & Weight Height 5 ft 6 in 02/21/25 16:11 Respiratory Assessment Respiratory Assessment - executive chairman of the board: Respiratory Tract Infection Hx - executive chairman of the board Hx Respiratory Tract Infection No 02/27/25 16:15 Any additional information?: No STOP Sleep Apnea STOP Sleep Apnea - executive chairman of the board: STOP Sleep Apnea - executive chairman of the board Hx Hypertension Yes: CONTROLLED WITH MEDS 02/27/25 16:15 Hx Sleep Apnea Yes 02/27/25 16:15 CPAP Yes 02/27/25 16:15 BIPAP No 02/27/25 16:15 Do you snore loudly (louder than talking or can be heard Do you often feel tired/ fatigued/ sleepy during daytime? Has anyone observed you stop breathing during sleep? STOP Results Positive 02/27/25 16:15 QUESTION #5 FULL TEXT : Do you snore loudly (louder than talking or can be heard through closed doors)? 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 Specify any problems Hx of Preganancy in last 3 N/A 02/27/25 16:15 Months Nurse Filling Out Transfusion DSCHRIBER 02/27/25 16:15 & Questions: Date: 02/27/25 02/27/25 16:15 Time: 16:16 02/27/25 16:15 Patient unable to answer at this time (ie. 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: /Reproductive Hx- executive chairman of the board Hx Now No 02/27/25 16:15 Gestational Age (in weeks): EDC: Hx Hx Para Hx Section SAB No 02/27/25 16:15 Any additional information?: No Active Medications Active Medications: Current Medications Generic Name Dose Route Start Last Admin Trade Name Freq PRN Reason Stop Dose Admin Lactated Ringer's 1,000 mls @ 15 mls/hr 03/01/25 06:15 IV .Q48H KRISTINE PFSH Medical History Prostate disease Low iron Injury of back Dietary restriction Shortness of breath on exertion History of pain when walking History of edema Mixed hyperlipidemia Secondary adrenal insufficiency Acute sinusitis, unspecified Secondary hypothyroidism Pancreatic calcification Wears glasses Diabetes Thyroid disease Rheumatoid arthritis Bladder disease Anemia Back pain Non-smoker CPAP (continuous positive airway pressure) dependence Leg cramps Hypertension History of colon polyps Chronic pancreatitis Lactose intolerance DJD (degenerative joint disease), lumbar Eosinophilic esophagitis Hypertriglyceridemia Bilateral cataracts Seasonal allergies Anemia Segmental and somatic dysfunction of lumbar region Segmental and somatic dysfunction of thoracic region Segmental and somatic dysfunction of cervical region Acute cholecystitis Obesity Hypertension Rheumatoid arthritis Home Medications ?Medication ?Instructions ?Recorded ?Last Taken ?Type carvedilol 25 mg tablet 25 mg PO BID 12/22/15 History finasteride 5 mg tablet 5 mg PO DAILY 12/22/1506/17 History hydralazine 100 mg tablet 100 mg PO TID 12/22/1506/18 History lisinopril 40 mg tablet 40 mg PO DAILY 12/22/1506/05 History multivitamin 1 tab PO DAILY 08/19/1706/05 History hydrocortisone 2.5 % topical cream 1 applic topical BI D PRN Skin 05/25/21 Unknown History Cleansing ketoconazole 2 % shampoo 1 applic topical QODAY 05/2506/16/24 History oxybutynin chloride 10 mg 10 mg PO DAILY 05/25/2106/05 History tablet,extended release 24 hr cholecalciferol (vitamin D3) 25 25 mcg PO DAILY 06/17/24 History mcg (1,000 unit) capsule sulfasalazine 500 mg 1.5 g PO BID 12/15/23 History tablet,delayed release levothyroxine 75 mcg tablet 75 mcg PO MOTUWETHFRSA 06/2806/18/24 History lancets 33 gauge (OneTouch Delica #100 ea 10/15/24 Unk nown Rx Plus Lancet) atorvastatin 20 mg tablet 10 mg PO QHS 12/05/24 Unknow n History clonidine HCl 0.3 mg tablet 0.3 mg PO BID 12/05/24 Unk nown History clonidine HCl 0.3 mg tablet 0.6 mg PO QHS 12/05/24 Unk nown History hydrocortisone 10 mg tablet 10 mg PO TID 12/05/24 Unkn own History ferrous sulfate 325 mg (65 mg 325 mg PO .2XWK 12/20/24 Unknown History iron) tablet (Feosol) tirzepatide 5 mg/0.5 mL 5 mg (0.5 mL) subcut QWEEK # 2 mL 02/21/25 Unknown Rx subcutaneous pen injector (Ioana) Held on 02/27/25. Instructions: HAS NOT STARTED blood sugar diagnostic (FreeStyle #100 ea 02/22/25 Unk nown Rx Lite Strips) blood-glucose meter (FreeStyle #1 ea 02/22/25 Unknown Rx Cora Lite kit) lancets 28 gauge (FreeStyle #100 ea 02/22/25 Unknown R x Lancets) dulaglutide 1.5 mg/0.5 mL 1.5 mg subcut WE 02/27/25 History subcutaneous pen injector (Trulicity) hydrochlorothiazide 25 mg tablet 25 mg PO DAILY Unknown History levothyroxine 75 mcg tablet 150 mcg PO CLEARY 02/27/25 Unk nown History Allergy/AdvReac Type Severity Reaction Status Date / Time diltiazem (From Cardizem) Allergy Unknown PT UNSURE Verified 02/27/25 16:06 OF REACTION Milk Containing Products AdvReac Unknown unknown Verified 02/27/25 16:06 (Dairy) Family History Mother Cancer Hypertension Father Diabetes Prostate cancer Heart disease stent placed High cholesterol Hypertension Surgical History Hx of colonoscopy with polypectomy History of pituitary surgery History of esophagogastroduodenoscopy (EGD) (~05/29/18) S/P colonoscopy (~05/29/18) History of esophagogastroduodenoscopy (EGD) Hx of tonsillectomy Hx of colonoscopy Hx of cholecystectomy S/P cholecystectomy Social History household members: spouse current occupational status: employed current occupation: [employer] Smoking Status: Never smoker alcohol intake: never substance use type: does not use Review of Systems (Anesthesia) ROS Narrative System reviewed and no additional complaints, except as documented. 03/01/25624 <Electronically signed by Estelle moon CRNA> Date _ Estelle Palmer CRNA Cosigner Signature: Date CC: ~ Signed [facility] Work Phone: [phone] 319-362706-27-2025 Consult note [facility] Medical Records Department [facility] [place] [address] Anesthesia Postop Eval I 03/01/25 7733 MR#: [id number] Acct: [id number] Name: MYRANDA OLEA Derrick Rep #:[id number] : 1960 64 From: Estelle Palmer CRNA PCP: Dr. William Amado, DO Status:BRISA GOMEZ Y Race: C Location: [place] [address] Anesthesia: Postop Eval I Current Vital Signs Temperature: 97.2 F Pulse Rate: 90 Blood Pressure: 110/87 Respiratory Rate: 20 Pulse Ox: 98 Assessment Airway patent: Yes Spontaneous unlabored respirations: Yes nausea: No Vomiting: No Anesthesia Complication: No Fluid Hydration Crystalloid volume administer (ml): 300 Total IV fluid infused: 300 Progress Note Anesthesia document: Postop Eval 1 completed: Yes 03/01/25 0754 a PRIMARY COUNSELOR> Date _ Estelle Palmer PRIMARY COUNSELOR Cosigner Signature: Date CC: ~ Signed [facility]06-27-2025 Procedure note [facility] Medical Records Department [address] [place] [id number] EGD Report MR#: [id number] Acct: [id number] Name: MYRANDA OLEA Rep #:[id number] : 1960 64 From: Mitchel Zuniga DO PCP: Dr. William Amado, DO Status:BRISA Valentin [facility] Patient Name: Myranda Olea Procedure Date: 03/01/2025 7:23 AM Date of : 1960 Age: 64 Procedure: Upper GI endoscopy Indications: Iron deficiency anemia, Celiac disease, Positive celiac serologies Providers: Mitchel Zuniga DO Referring MD: William Amado Medicines: Monitored Anesthesia Care Patient Profile: This is a 64 year old male. Refer to note in patient chart for documentation of history and physical. Patient has symptoms. Complications: No immediate complications. Procedure: Pre-Anesthesia Assessment: - Prior to the procedure, a History and Physical was performed, and patient medications and allergies were reviewed. The patient is competent. The risks and benefits of the procedure and the sedation options and risks were discussed with the patient. All questions were answered and informed consent was obtained. Patient identification and proposed procedure were verified by the physician. Mental Status Examination: normal. Respiratory Examination: clear to auscultation. Prophylactic Antibiotics: The patient does not require prophylactic antibiotics. Prior Anticoagulants: The patient has taken no anticoagulant or antiplatelet agents except for NSAID medication. ASA Grade Assessment: II - A patient with mild systemic disease. After reviewing the risks and benefits, the patient was deemed in satisfactory condition to undergo the procedure. The anesthesia plan was to use general anesthesia. Immediately prior to administration of medications, the patient was re-assessed for adequacy to receive sedatives. The heart rate, respiratory rate, oxygen saturations, blood pressure, adequacy of pulmonary ventilation, and response to care were monitored throughout the procedure. The physical status of the patient was re-assessed after the procedure. After obtaining informed consent, the endoscope was passed under direct vision. Throughout the procedure, the patient's blood pressure, pulse, and oxygen saturations were monitored continuously. The Endoscope was introduced through the mouth, and advanced to the fourth part of the duodenum. Small bowel enteroscopy was deemed necessary. The upper GI endoscopy was accomplished without difficulty. The patient tolerated the procedure well. Scope In: 7:42:03 AM Scope Out: 7:46:54 AM Total Procedure Duration Time 0 hours 4 minutes 51 seconds Findings: The Z-line was irregular and was found 40 cm from the incisors. Biopsies were taken with a cold forceps for histology. Verification of patient identification for the specimen was done. Estimated blood loss was minimal. Suspect gastroparesis due to absence of peristalsis, patient symptoms and retained gastric contents. Decreased folds were found in the duodenal bulb, scalloped mucosa was found in the entire duodenum and thickened folds were found in the entire duodenum. Biopsies for histology were taken with a cold forceps for evaluation of celiac disease. Verification of patient identification for the specimen was done. Estimated blood loss was minimal. Impression: - Z-line irregular, 40 cm from the incisors. Biopsied. - Gastroparesis, secondary to diabetes mellitus type II. - Duodenal mucosal changes seen, diagnostic of celiac disease. Biopsied. Recommendation: - Discharge patient to home. - Resume previous diet. - Continue present medications. - Await pathology results. Procedure Code(s): --- Professional --- 92281, Small intestinal endoscopy, enteroscopy beyond second portion of duodenum, not including ileum; with biopsy, single or multiple CPT copyright 2021 [employer]. All rights reserved. The codes documented in this report are preliminary and upon clinical manager review may be revised to meet current compliance requirements. Mitchel Zuniga DO 03/01/2025 7:52:13 AM This report has been signed electronically. Number of Addenda: 0 Note Initiated On: 03/01/2025 7:23 AM 03/01/25 0752 Date _ Mitchel Zuniga DO Cosigner Signature: Date (if indicated) CC: Dr. William Amado DO; Mitchel Zuniga DO ~ Date Dictated: 03/01/25722 Date Transcribed: Contractor General Building: CARLINE Signed [facility]06-27-2025 Procedure note [facility] Medical Records Department [address] [place] [address] Operative Report - CC Letter MR#: [id number] Acct: [id number] Name: MYRANDA OLEA Rep #:[id number] : 1960 64 From: Mitchel Zuniga DO PCP: Dr. William Amado DO Status:RE G [facility] 03/01/2025 William Amado Re : Upper GI endoscopy procedure for Myranda Olea Dear Aneudy This procedure was performed on Tuesday, March 01, 2025. My impressions and recommendations are as follows: Impressions : - Z-line irregular, 40 cm from the incisors. Biopsied. - Gastroparesis, secondary to diabetes mellitus type II. - Duodenal mucosal changes seen, diagnostic of celiac disease. Biopsied. Recommendations : - Discharge patient to home. - Resume previous diet. - Continue present medications. - Await pathology results. My findings are described in the full procedure note, which is enclosed. If I can be of further assistance, please feel free to contact me at . Sincerely, Mitchel Zuniga DO 03/01/2025 7:52:13 AM This report has been signed electronically. 03/01/25 0752 Date _ Mitchel Zuniga DO Cosigner Signature: Date (if indicated) CC: Dr. William Amado DO; Mitchel Zuniga DO ~ Date Dictated: 03/01/25722 Date Transcribed: Contractor General Building: RF Signed [facility]06-27-2025 History and physical note [facility] Medical Records Department [address] [place] [address] History & Physical Exam 03/01/25718 MR#: [id number] Acct: [id number] Name: MYRANDA OLEA Rep #:[id number] : 1960 64 From: Mitchel Zuniga DO PCP: Dr. William Amado DO Status:[facility] Location: [place] [address] HPI - General General Date of Admission: 03/01/25 Date of Service: 03/01/25 Chief Complaint: Anemia and Celiac disease HPI Narrative MYRANDA OLEA, is a 64 M who presents for endoscopy regarding +TtG results forceliac disease. He was referred by Oncology/ Hematology for Anemia. reports Labs completed 12/05/2024 reveal hemoglobin of 12.4. Colonoscopy revealed tubular adenomas June 2024. He denies any heartburn, nausea, vomiting, weight loss or pain. [facility] Medical History Prostate disease Low iron Injury of back Dietary restriction Shortness of breath on exertion History of pain when walking History of edema Mixed hyperlipidemia Secondary adrenal insufficiency Acute sinusitis, unspecified Secondary hypothyroidism Pancreatic calcification Wears glasses Diabetes Thyroid disease Rheumatoid arthritis Bladder disease Anemia Back pain Non-smoker CPAP (continuous positive airway pressure) dependence Leg cramps Hypertension History of colon polyps Chronic pancreatitis Lactose intolerance DJD (degenerative joint disease), lumbar Eosinophilic esophagitis Hypertriglyceridemia Bilateral cataracts Seasonal allergies Anemia Segmental and somatic dysfunction of lumbar region Segmental and somatic dysfunction of thoracic region Segmental and somatic dysfunction of cervical region Acute cholecystitis Obesity Hypertension Rheumatoid arthritis Home Medications ?Medication ?Instructions ?Recorded ?Last Taken ?Type carvedilol 25 mg tablet 25 mg PO BID 12/22/15 History finasteride 5 mg tablet 5 mg PO DAILY 12/22/1502/28 History hydralazine 100 mg tablet 100 mg PO TID 12/22/1502/28 History lisinopril 40 mg tablet 40 mg PO DAILY 12/22/1502/04 History multivitamin 1 tab PO DAILY 08/19/1702/04 History hydrocortisone 2.5 % topical cream 1 applic topical BI D PRN Skin 05/25/21 Unknown History Cleansing ketoconazole 2 % shampoo 1 applic topical QODAY 05/2502/28/25 History oxybutynin chloride 10 mg 10 mg PO DAILY 05/25/2102/04 History tablet,extended release 24 hr cholecalciferol (vitamin D3) 25 25 mcg PO DAILY 02/28/25 History mcg (1,000 unit) capsule sulfasalazine 500 mg 1.5 g PO BID 12/15/23 History tablet,delayed release levothyroxine 75 mcg tablet 75 mcg PO MOTUWETHFRSA 06/2802/28/25 History lancets 33 gauge (OneTouch Delica #100 ea 10/15/24 Unk nown Rx Plus Lancet) atorvastatin 20 mg tablet 10 mg PO QHS 12/05/24 History clonidine HCl 0.3 mg tablet 0.3 mg PO BID 12/05/24 History clonidine HCl 0.3 mg tablet 0.6 mg PO QHS 12/05/24 History hydrocortisone 10 mg tablet 10 mg PO TID 12/05/24/02/27 History ferrous sulfate 325 mg (65 mg 325 mg PO .2XWK 12/20/24 02/25/25 History iron) tablet (Feosol) tirzepatide 5 mg/0.5 mL 5 mg (0.5 mL) subcut QWEEK # 2 mL 02/21/25 Unknown Rx subcutaneous pen injector (Mounjaro) Held on 02/27/25. Instructions: HAS NOT STARTED blood sugar diagnostic (FreeStyle #100 ea 02/22/25 Unk nown Rx Lite Strips) blood-glucose meter (FreeStyle #1 ea 02/22/25 Unknown Rx Cora Lite kit) lancets 28 gauge (FreeStyle #100 ea 02/22/25 Unknown R x Lancets) dulaglutide 1.5 mg/0.5 mL 1.5 mg subcut WE 02/27/25 History subcutaneous pen injector (Trulicity) hydrochlorothiazide 25 mg tablet 25 mg PO DAILY 02/28/25 History levothyroxine 75 mcg tablet 150 mcg PO CLEARY 02/27/25 History Allergy/AdvReac Type Severity Reaction Status Date / Time diltiazem (From Cardizem) Allergy Unknown PT UNSURE Verified 02/27/25 16:06 OF REACTION Milk Containing Products AdvReac Unknown unknown Verified 02/27/25 16:06 (Dairy) Family History Mother Cancer Hypertension Father Diabetes Prostate cancer Heart disease stent placed High cholesterol Hypertension Surgical History Hx of colonoscopy with polypectomy History of pituitary surgery History of esophagogastroduodenoscopy (EGD) (~05/29/18) S/P colonoscopy (~05/29/18) History of esophagogastroduodenoscopy (EGD) Hx of tonsillectomy Hx of colonoscopy Hx of cholecystectomy S/P cholecystectomy Social History household members: spouse current occupational status: employed current occupation: [employer] Smoking Status: Never smoker alcohol intake: never substance use type: does not use ROS Constitutional Constitutional: Denies fatigue, fever(s), poor appetite, weight gain or weight loss Gastrointestinal Gastrointestinal: Denies belching, bloating, change in bowel habits, change in stool character, chewing difficulty, coffee ground emesis, constipation, cramping, diarrhea, dyspepsia, dysphagia, earlysatiety, excessive flatus, fecalincontinence, heartburn, hematemesis, hematochezia, hemorrhoids, loose stools, melena, nausea, odynophagia, rectal bleeding, tenesmus, vomiting or weight changes Vital Signs Vital Signs Vital Signs: 03/01/25 06:25 03/01/25 06:41 03/01/25 06:42 Temperature 97.7 F L 97.7 F L Temperature Source Temporal Pulse Rate 63 63 Respiratory Rate 16 16 Respiratory Pattern Normal Blood Pressure 160/89 H 160/89 H Blood Pressure Mean 112 Blood Pressure Source Monitor Blood Pressure Position Sitting Blood Pressure Location Left Arm Pulse Ox 98 98 Oxygen Delivery Method Room Air Room Air Weight Weight: 240 lb 4.862 oz Body Mass Index (BMI) 36.5 Physical Exam Const alert, oriented x3, no apparent distress and healthy appearing General Appearance: cooperative GI normal to inspection, nondistended, normoactive bowel sounds, soft to palpation,non-tender and non-distended Percussion: normal to percussion Rectal Exam: deferred Results Lab / Micro Data Labs: Laboratory Results - last 24 hr 03/01/25 06:21: POC Glucose 108 H Assessment & Plan Assessment/Plan (1) Celiac disease: PLAN: Assessment and Plan Assessment and Plan (1) Anemia: Status: Chronic Qualifiers: Anemia type: unspecified type Qualified Code(s): D64.9 - Anemia, unspecified Comment: Discussed causes of anemia and evaluation. (2) Iron deficiency: Status: Chronic Comment: Iron level is improving, now 62. Plan 64-year-old male referred by Dr. Chinchilla for evaluation of anemia. Labs completed 12/05/2024 reveal hemoglobin of 12.4. Colonoscopy revealed tubular adenomas June 2024. He denies any heartburn, nausea,vomiting, weight loss or pain. We have scheduled him for an EGD. His tissue transglutaminase came back elevated at 7. He knows that he was diagnosed with celiac disease in the past but had another doctor tell him that he did not have it so he has not been gluten-free. I suspect his celiac disease is contributing to iron absorption which leads to his low-grade anemia. We will fully evaluate him with biopsies and endoscopic evaluation in the near future. 03/01/25721 Cosigner Signature (if applicable): CC: Dr. William Amado, DO; Mitchel Zuniga, DO~ Signed [facility]06-27-2025 [facility] Medical Records Department [address] [place] [address] History Physical Exam 03/01/25 07 MR#: [id number] Acct: [id number] Name: MYRANDA OLEA Rep #: [id number] : 1960 64 From: Mitchel Zuniga DO PCP: Dr. William Amado, Status:REG [facility] Location: [place] [address] HPI - General General Date of Admission: 03/01/25 Date of Service: 03/01/25 Chief Complaint: Anemia and Celiac disease HPI Narrative MYRANDA OLEA, is a 64 M who presents for endoscopy regarding +TtG results for celiac disease. He was referred by Oncology/ Hematology for Anemia. reports Labs completed 12/05/2024 reveal hemoglobin of 12.4. Colonoscopy revealed tubular adenomas June 2024. He denies any heartburn, nausea, vomiting, weight loss or pain. [facility] Medical History Prostate disease Low iron Injury of back Dietary restriction Shortness of breath on exertion History of pain when walking History of edema Mixed hyperlipidemia Secondary adrenal insufficiency Acute sinusitis, unspecified Secondary hypothyroidism Pancreatic calcification Wears glasses Diabetes Thyroid disease Rheumatoid arthritis Bladder disease Anemia Back pain Non-smoker CPAP (continuous positive airway pressure) dependence Leg cramps Hypertension History of colon polyps Chronic pancreatitis Lactose intolerance DJD (degenerative joint disease), lumbar Eosinophilic esophagitis Hypertriglyceridemia Bilateral cataracts Seasonal allergies Anemia Segmental and somatic dysfunction of lumbar region Segmental and somatic dysfunction of thoracic region Segmental and somatic dysfunction of cervical region Acute cholecystitis Obesity Hypertension Rheumatoid arthritis Home Medications ???Medication ???Instructions ???Recorded ???Last Taken ???Type carvedilol 25 mg tablet 25 mg PO BID 12/22/15 02/28/25 His tory finasteride 5 mg tablet 5 mg PO DAILY 12/22/15 02/28/25 Hi story hydralazine 100 mg tablet 100 mg PO TID 12/22/15 02/28/25 Hi story lisinopril 40 mg tablet 40 mg PO DAILY 12/22/15 02/28/25 H istory multivitamin 1 tab PO DAILY 08/19/17 02/25/25 H istory hydrocortisone 2.5 % topical cream 1 applic topical BID PRN Skin Unknown History Cleansing ketoconazole 2 % shampoo 1 applic topical QODAY 05/25/21 History oxybutynin chloride 10 mg 10 mg PO DAILY 05/25/21 02/28/25 H istory tablet,extended release 24 hr cholecalciferol (vitamin D3) 25 25 mcg PO DAILY 12/10/22 02/28/25 History mcg (1,000 unit) capsule sulfasalazine 500 mg 1.5 g PO BID 12/15/23 02/28/25 His tory tablet,delayed release levothyroxine 75 mcg tablet 75 mcg PO MOTUWETHFRSA 06/14/24 History lancets 33 gauge (OneTouch Delica #100 ea 10/15/24 Unknown Rx Plus Lancet) atorvastatin 20 mg tablet 10 mg PO QHS 12/05/24 02/28/25 His tory clonidine HCl 0.3 mg tablet 0.3 mg PO BID 12/05/24 02/28/25 Hi story clonidine HCl 0.3 mg tablet 0.6 mg PO QHS 12/05/24 02/28/25 Hi story hydrocortisone 10 mg tablet 10 mg PO TID 12/05/24 02/28/25 His tory ferrous sulfate 325 mg (65 mg 325 mg PO .2XWK 12/20/24 02/25/25 History iron) tablet (Feosol) tirzepatide 5 mg/0.5 mL 5 mg (0.5 mL) subcut QWEEK #2 mL 0 02/21/25 Unknown Rx subcutaneous pen injector (Ioana) Held on 02/27/25. Instructions: HAS NOT STARTED blood sugar diagnostic (FreeStyle #100 ea 02/22/25 Unknown Rx Lite Strips) blood-glucose meter (FreeStyle #1 ea 02/22/25 Unknown Rx Cora Lite kit) lancets 28 gauge (FreeStyle #100 ea 02/22/25 Unknown Rx Lancets) dulaglutide 1.5 mg/0.5 mL 1.5 mg subcut WE 02/27/25 02/20/25 History subcutaneous pen injector (Trulicity) hydrochlorothiazide 25 mg tablet 25 mg PO DAILY 02/27/25 02/28/25 H istory levothyroxine 75 mcg tablet 150 mcg PO CLEARY 02/27/25 02/24/25 Hi story Allergy/AdvReac Type Severity Reaction Status Date / Time diltiazem (From Cardizem) Allergy Unknown PT UNSURE Verified 02/27/25 16:06 OF REACTION Milk Containing Products AdvReac Unknown unknown Verified 02/27/25 16:06 (Dairy) Family History Mother Cancer Hypertension Father Diabetes Prostate cancer Heart disease stent placed High cholesterol Hypertension Surgical History Hx of colonoscopy with polypectomy History of pituitary surgery History of esophagogastroduodenoscopy (EGD) ( 05/29/18) S/P colonoscopy ( 05/29/18) History of esophagogastroduodenoscopy (EGD) Hx of tonsillectomy Hx of colonoscopy Hx of cholecystectomy S/P cholecystectomy Social History ...[facility]06-27-2025 Consult note [facility] Medical Records Department [address] [place] [address] Pre-Anesthesia Evaluation 03/01/25620 MR#: [id number] Acct: [id number] Name: MYRANDA OLEA Derrick Rep #:[id number] : 1960 64 From: Estelle Palmer CRNA PCP: Dr. William Amado DO Status:RE G SDC Y Race: C Location: [facility]-1 ASA Classification* ASA Classification ASA Classification: 3 Assessment & Plan Anesthesia* Anesthesia Assessment Anesthesia Assessment: Discussed sedation and/or anesthesia options, risks, benefits, and alternatives with patient/parents/legal guardian/POA. Questions invited. The patient/parents/legal guardian/POA seems to understand and agrees to proceedwith anesthesia plan. Reviewed the physical assessment, medical history, allergy history and patient home medications list prior to surgery/procedure/anesthetic and documented any changes. Performed airway and anesthesia risk assessments. Anesthesia Type Anesthesia Type: MAC History Source History Obtained from:: Patient and Chart Anesthesia Focused Assessment* Temperature: 97.7 F Pulse Rate: 63 Blood Pressure: 160/89 Respiratory Rate: 16 Pulse Ox: 98 Oxygen Delivery Method: Room Air Airway Assessment Mouth opens: >3 cm Mallampati Score: III Teeth Condition: Intact Neck Range of motion (ROM): Full ROM Labs Anesthesia Preop lab: CBC WBC 6.1 K/mm3 (4.4-11.0) 01/04/25 15:01/04/25 RBC 4.19 M/mm3 (4.6-6.2) L 01/04/25 15:20 01/04/25 Hgb 12.2 g/dL (13.0-16.5) L 01/04/25 15:20 5 Hct 38.0 % (40-54) L 01/04/25 15:20 01/04/25 Plt Count 267 K/mm3 (150-450) 01/04/25 15:20 01/04/25 CHEMISTRY Potassium 3.8 mmol/L (3.3-5.1) 01/04/25 15:20 01/04/25 Sodium 141 mmol/L (133-145) 01/04/25 15:20 01/04/25 Magnesium 2.5 mg/dL (1.5-2.2) H 01/04/25 15:20 01/04/25 Phosphorus 3.3 mg/dL (2.7-4.5) 01/04/25 15:20 01/04/25 BUN 17 mg/dL (4-19) 01/04/25 15:01/04/25 Creatinine 1.11 mg/dL (0.70-1.20) 01/04/25 15:20 01/04/25 Glucose 110 mg/dL (70-99) H 01/04/25 15:20 01/04/25 POC Glucose 108 mg/dL (74-106) H 06/18/24 06:06/18/24 TSH 2.990 uIU/mL (0.358-3.740) 10/27/24 09:18 10/07 10/30 COAG PT 16.1 SECONDS (11.7-14.9) H 12/23/15 05:34 12/04 05/21 Pre-Assessment Diagnosis/Proposed Procedure Planned Operative Procedure(s): EGD Anesthesia History 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 When Was Last Pacemaker Check QUESTION #4 FULL TEXT: You/Your Family Experience fever (hyperthermia) with Anesthesia Any additional information?: No Last Oral Intake Last Oral intake: Last Oral Intake NPO since Meds taken in AM with sips of water? 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 Female No 02/27/25 16:15 HX of Motion Sickness No 02/27/25 16:15 HX of N/V After Surgery No 02/27/25 16:15 Non-Smoker Yes 02/27/25 16:15 Duration of Surgery greater No 02/27/25 16:15 than 60 minutes Number of Risk Factors 1 02/27/25 16:15 PONV Score Low Risk 02/27/25 16:15 Any additional information?: No Height & Weight Height & Weight: Anesthesia: Height & Weight Height 5 ft 6 in 02/21/25 16:11 Respiratory Assessment Respiratory Assessment - executive chairman of the board: Respiratory Tract Infection Hx - executive chairman of the board Hx Respiratory Tract Infection No 02/27/25 16:15 Any additional information?: No STOP Sleep Apnea STOP Sleep Apnea - executive chairman of the board: STOP Sleep Apnea - executive chairman of the board Hx Hypertension Yes: CONTROLLED WITH MEDS 02/27/25 16:15 Hx Sleep Apnea Yes 02/27/25 16:15 CPAP Yes 02/27/25 16:15 BIPAP No 02/27/25 16:15 Do you snore loudly (louder than talking or can be heard Do you often feel tired/ fatigued/ sleepy during daytime? Has anyone observed you stop breathing during sleep? STOP Results Positive 02/27/25 16:15 QUESTION #5 FULL TEXT : Do you snore loudly (louder than talking or can be heard through closeddoors)? 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 Specify any problems Hx of Preganancy in last 3 N/A 02/27/25 16:15 Months Nurse Filling Out Transfusion DSCHRIBER 02/27/25 16:15 & Questions: Date: 02/27/25 02/27/25 16:15 Time: 16:16 02/27/25 16:15 Patient unable to answer at this time (ie. 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: /Reproductive Hx- executive chairman of the board Hx Now No 02/27/25 16:15 Gestational Age (in weeks): EDC: Hx Hx Para Hx Section SAB No 02/27/25 16:15 Any additional information?: No Active Medications Active Medications: Current Medications Generic Name Dose Route Start Last Admin Trade Name Freq PRN Reason Stop Dose Admin Lactated Ringer's 1,000 mls @ 15 mls/hr 03/01/25 06:15 IV .Q48H KRISTINE PFSH Medical History Prostate disease Low iron Injury of back Dietary restriction Shortness of breath on exertion History of pain when walking History of edema Mixed hyperlipidemia Secondary adrenal insufficiency Acute sinusitis, unspecified Secondary hypothyroidism Pancreatic calcification Wears glasses Diabetes Thyroid disease Rheumatoid arthritis Bladder disease Anemia Back pain Non-smoker CPAP (continuous positive airway pressure) dependence Leg cramps Hypertension History of colon polyps Chronic pancreatitis Lactose intolerance DJD (degenerative joint disease), lumbar Eosinophilic esophagitis Hypertriglyceridemia Bilateral cataracts Seasonal allergies Anemia Segmental and somatic dysfunction of lumbar region Segmental and somatic dysfunction of thoracic region Segmental and somatic dysfunction of cervical region Acute cholecystitis Obesity Hypertension Rheumatoid arthritis Home Medications ?Medication ?Instructions ?Recorded ?Last Taken ?Type carvedilol 25 mg tablet 25 mg PO BID 12/22/15 History finasteride 5 mg tablet 5 mg PO DAILY 12/22/1506/17 History hydralazine 100 mg tablet 100 mg PO TID 12/22/1506/18 History lisinopril 40 mg tablet 40 mg PO DAILY 12/22/1506/05 History multivitamin 1 tab PO DAILY 08/19/1706/05 History hydrocortisone 2.5 % topical cream 1 applic topical BI D PRN Skin 05/25/21 Unknown History Cleansing ketoconazole 2 % shampoo 1 applic topical QODAY 05/2506/16/24 History oxybutynin chloride 10 mg 10 mg PO DAILY 05/25/2106/05 History tablet,extended release 24 hr cholecalciferol (vitamin D3) 25 25 mcg PO DAILY 06/17/24 History mcg (1,000 unit) capsule sulfasalazine 500 mg 1.5 g PO BID 12/15/23 History tablet,delayed release levothyroxine 75 mcg tablet 75 mcg PO MOTUWETHFRSA 06/2806/18/24 History lancets 33 gauge (OneTouch [employer] #100 ea 10/15/24 Unk nown Rx Plus Lancet) atorvastatin 20 mg tablet 10 mg PO QHS 12/05/24 Unknow n History clonidine HCl 0.3 mg tablet 0.3 mg PO BID 12/05/24 Unk nown History clonidine HCl 0.3 mg tablet 0.6 mg PO QHS 12/05/24 Unk nown History hydrocortisone 10 mg tablet 10 mg PO TID 12/05/24 Unkn own History ferrous sulfate 325 mg (65 mg 325 mg PO .2XWK 12/20/24 Unknown History iron) tablet (Feosol) tirzepatide 5 mg/0.5 mL 5 mg (0.5 mL) subcut QWEEK # 2 mL 02/21/25 Unknown Rx subcutaneous pen injector (Mounjaro) Held on 02/27/25. Instructions: HAS NOT STARTED blood sugar diagnostic (FreeStyle #100 ea 02/22/25 Unk nown Rx Lite Strips) blood-glucose meter (FreeStyle #1 ea 02/22/25 Unknown Rx Cora Lite kit) lancets 28 gauge (FreeStyle #100 ea 02/22/25 Unknown R x Lancets) dulaglutide 1.5 mg/0.5 mL 1.5 mg subcut WE 02/27/25 History subcutaneous pen injector ([employer]) hydrochlorothiazide 25 mg tablet 25 mg PO DAILY Unknown History levothyroxine 75 mcg tablet 150 mcg PO CLEARY 02/27/25 Unk nown History Allergy/AdvReac Type Severity Reaction Status Date / Time diltiazem (From Cardizem) Allergy Unknown PT UNSURE Verified 02/27/25 16:06 OF REACTION Milk Containing Products AdvReac Unknown unknown Verified 02/27/25 16:06 (Dairy) Family History Mother Cancer Hypertension Father Diabetes Prostate cancer Heart disease stent placed High cholesterol Hypertension Surgical History Hx of colonoscopy with polypectomy History of pituitary surgery History of esophagogastroduodenoscopy (EGD) (~05/29/18) S/P colonoscopy (~05/29/18) History of esophagogastroduodenoscopy (EGD) Hx of tonsillectomy Hx of colonoscopy Hx of cholecystectomy S/P cholecystectomy Social History household members: spouse current occupational status: employed current occupation: [employer] Smoking Status: Never smoker alcohol intake: never substance use type: does not use Review of Systems (Anesthesia) ROS Narrative System reviewed and no additional complaints, except as documented. 03/01/25 0625 a PRIMARY COUNSELOR> Date _ Estelle Palmer PRIMARY COUNSELOR Cosigner Signature: Date CC: ~ Signed [facility]05-08-2025 History of Present illness Narrative* William Dominique Aneudy, DO - 01/10/2025 7:00 AM EDT Images from the original note were not included. [facility] - [address] [facility] [id number] Visit type: Established Patient Reason for Visit: Follow-up (Med check) Assessment / Plan: Graeme was seen today for follow-up. Diagnoses and all orders for this visit: Essential hypertension (Primary) Comments: Uncontrolled, add HCTZ, continue all meds recheck BP 4 weeks Hypertriglyceridemia Comments: Stable, continue Lipitor Orders: - Lipid panel; Future - Lipid panel Anemia of chronic disease Comments: Improved, await EGD Elevated prostate specific antigen less than 10 ng/ml Comments: Noted, follow-up with urology for refills on Proscar Prediabetes Comments: Improving, recommend increasing Trulicity Inflammatory arthritis Comments: Stable, continue sulfasalazine Celiac disease Other orders - atorvastatin (Lipitor) 10 MG tablet; Take 1 tablet (10 mg) by mouth Nightly for 360 doses. - hydrALAZINE (Apresoline) 100 MG tablet; Take 1 tablet (100 mg) by mouth 3 times daily. - cloNIDine (Catapres) 0.3 MG tablet; One q AM , one q afternoon, then 2 q PM - carvedilol (Coreg) 25 MG tablet; Take 1 tablet (25 mg) by mouth 2 times daily (with meals). - lisinopril 40 MG tablet; Take 1 tablet (40 mg) by mouth daily. - Pneumococcal conjugate vaccine 20-valent IM (PREVNAR 20) - hydroCHLOROthiazide (HYDRODiuril) 25 MG tablet; Take 1 tablet (25 mg) by mouth daily. Subjective: Patient ID: Myranda Olea is a 64 y.o. male. HPI hypertension lipid management patient with prediabetes, history of elevated PSA, hypertriglyceridemia and chronic anemia probably due to either inflammatory arthritis or even celiac disease. Extensive records reviewed. Will be getting EGD for complete workup for anemia. Recent CT of the abdomenand chest apparently unremarkable. Colonoscopy was negative in June 2020 for Review of Systems he feels better. Little more energy. No recent earache sore throat or cough. Recent MRI of the head for surveillance for pituitary adenoma also very stable. No chest pain shortness of breath or cough or wheezing. No dysphagia abdominal pain. No melena or blood or early satiety. Bowels are pretty regular. No dysuria. Of note sees urology for elevated PSA and on Proscar. It is now above 4. To have a recheck study done in 6 months Allergies Allergen Reactions Milk (Cow) Other reaction(s): GI Upset cough, diarrhea, scratchy throat Other reaction(s): GI Upset Diltiazem Other reaction(s): Other (See Comments) edema Other reaction(s): Unknown Milk-Related Compounds Other reaction(s): Other (See Comments) Lactose intolerant Other reaction(s): Diarrhea Other reaction(s): Diarrhea Current Outpatient Medications: acetaminophen (Tylenol 8 Hour) 650 MG ER tablet, Take 650 mg by mouth every 8 hours as needed for mild pain (1-3). Do not crush, chew, or split., Disp: , Rfl: Blood Glucose Monitoring Suppl (NavigatorMDuch Verio Flex System) w/Device kit, , Disp: , Rfl: cholecalciferol (Vitamin D3) 25 MCG (1000 UT) tablet, Take by mouth daily., Disp: , Rfl: Ferrous Sulfate (iron) 325 (65 Fe) MG tablet, Take 65 mg by mouth Twice a Week., Disp: , Rfl: finasteride (Proscar) 5 MG tablet, Take 1 tablet (5 mg) by mouth daily., Disp: 90 tablet, Rfl: 1 hydrocortisone (Cortef) 10 MG tablet, , Disp: , Rfl: hydrocortisone 2.5 % cream, Apply topically., Disp: , Rfl: ketoconazole (NIZOral) 2 % shampoo, , Disp: , Rfl: levothyroxine (Synthroid, Levoxyl) 75 MCG tablet, , Disp: , Rfl: Multiple Vitamins-Iron (MULTI-VITAMIN/IRON PO), Take by mouth., Disp: , Rfl: oxybutynin XL (Ditropan-XL) 10 MG 24 hr tablet, , Disp: , Rfl: sodium chloride 0.9 % irrigation solution, Irrigate as directed each nostril with 60cc of solution twice daily. Dispense one liter bottles, Disp: , Rfl: sulfaSALAzine 500 MG EC tablet, Take 1,000 mg by mouth 2 times daily., Disp: , Rfl: Trulicity 0.75 MG/0.5ML solution pen-injector, Inject 0.75 mg under the skin 1 (one) time per week., Disp: , Rfl: atorvastatin (Lipitor) 10 MG tablet, Take 1 tablet (10 mg) by mouth Nightly for 360 doses., Disp: 90 tablet, Rfl: 1 carvedilol (Coreg) 25 MG tablet, Take 1 tablet (25 mg) by mouth 2 times daily (with meals)., Disp: 180 tablet, Rfl: 1 cloNIDine (Catapres) 0.3 MG tablet, One q AM , one q afternoon, then 2 q PM, Disp: 360 tablet, Rfl:1 ferrous sulfate 325 (65 Fe) MG EC tablet, Take 325 mg by mouth 3 times daily (with meals). Do not crush, chew, or split., Disp: , Rfl: Glucose Blood (Blood Glucose Test) strip, 100 strips by Other route., Disp: , Rfl: hydrALAZINE (Apresoline) 100 MG tablet, Take 1 tablet (100 mg) by mouth 3 times daily., Disp: 270 tablet, Rfl: 1 hydroCHLOROthiazide (HYDRODiuril) 25 MG tablet, Take 1 tablet (25 mg) by mouth daily., Disp: 30 tablet, Rfl: 5 Lancets (OneTouch Delica Plus [id number]) [facility] [place] Disp: , Rfl: lisinopril 40 MG tablet, Take 1 tablet (40 mg) by mouth daily., Disp: 90 tablet, Rfl: 1 OneTouch Verio test strip, , Disp: , Rfl: Patient Active Problem List Diagnosis Pituitary neoplasm Hypertriglyceridemia Pneumonia Inflammatory arthritis Hypothyroid Prediabetes Hx of colonic polyps Anemia of chronic disease Psoriatic arthritis (HCC) Lactose intolerance Eosinophilic esophagitis Family history of prostate cancer Sleep apnea Essential hypertension Seasonal allergic rhinitis Elevated prostate specific antigen less than 10 ng/ml DJD (degenerative joint disease), lumbar Family history of diabetes mellitus in father Type 2 diabetes mellitus without complication, without long-term current use of insulin (HCC) Celiac disease Social History Tobacco Use Smoking status: Never Smokeless tobacco: Never Substance Use Topics Alcohol use: No Alcohol/week: 0.0 standard drinks of alcohol Past Surgical History: Procedure Laterality Date CHOLECYSTECTOMY 2015 COLONOSCOPY 2017 small polyp - Mahesh COLONOSCOPY 2010 Dr. Cavanaugh COLONOSCOPY W/ POLYPECTOMY 06/2021 Dr. Zuniga, few polyps/divert ds COLONOSCOPY W/ POLYPECTOMY 06/2024 Dr. Zuniga- rech due 2026 MAXILLARY SINUSOTOMY (HISTORICAL) 2019 Dr. Lo PITUITARY TUMOR RESECTION (HISTORICAL) 02/2023 [facility] PROSTATE BIOPSY 10/2021 Dr. Norwood, [place] TONSILLECTOMY (HISTORICAL) remote UPPER GASTROINTESTINAL ENDOSCOPY 05/2018 [place]- neg, due 2022 UPPER GASTROINTESTINAL ENDOSCOPY 2011 [place] Family History Problem Relation Name Age of Onset Lung cancer Mother Iraida 79 adeno CA, nonsmoker, age 81 in 07/2022 High Blood Pressure Mother Iraida Lymphoma Mother Iraida lymphoma Diabetes Father Noe Prostate cancer Father Noe 55 at age 70 in 2008 Coronary artery disease Father Noe Prostate cancer Brother Tomy 52 s/p prostatectomy Hypertension Brother Tomy alive age 54 Prostate cancer Brother Adán 55 age 60 in 03/26 mets to bone, spinal cord comp Hypertension Maternal Grandmother in 80s, COPD Maternal Grandfather [employer] [place] Diabetes Paternal Grandmother age 70 Diabetes Paternal Grandfather Objective: BP (!) 144/78 Pulse 68 Temp 36.8 C (98.2 F) (Temporal) Ht 5' 8 (1.727 m) Wt 239 lb (108 kg) SpO2 98% BMI 36.34 kg/m Physical Exam blood pressure is too high. No change in carotids thyroid or adenopathy. Heart is regular gallops or murmurs. Lungs are clear. Abdomen obese nontender without pain hepatosplenomegaly ormasses. No bruits. Extremities do have 1+ leg edema. Posterior pulses are adequate. documented in this [facility]05-03-2025 Radiology Diagnostic study note [facility] Imaging Services [address] [place], [place] [id number] CT Chest, Abd, Pel w/Contrast MR#: [id number] Acct: [id number] Name: MYRANDA OLEA Rep #: [id number] : 1960 M 64 From: Taylor Powers MD PCP: Dr. William Amado, DO Status: RE G CLI Study:CT Chest, Abd, Pel w/Contrast Date of E xam: 01/04/25 Exam# [id number] Ordering Dr: Sha Chinchilla MD PROCEDURE: CT CHEST, ABD, PEL W/CONTRAST 01/04/2025 REASON FOR EXAM: HIGH SERUM ERYTHROPOIETIN-IV ONLY TECHNIQUE: Chest, abdomen and pelvis CT with intravenous contrast. Coronal and Sagittal reconstruction series were provided. One or more dose reduction techniques were used (e.g., Automated exposure control, adjustment of the mA and/or kV according to patient size, use of iterative reconstruction technique. PATIENT PREPARATION: Per protocol ORAL CONTRAST TYPE: None. CONTRAST: Isovue 370 VOLUME: 100mL RADIATION DOSE SUMMARY: CTDlvol: 75 mGy DLP: 2500 mGycm COMPARISON: CT abdomen pelvis 05/23/2018. FINDINGS: CT CHEST: Hardware: None. Lymph nodes: No axillary, mediastinal or hilar lymphadenopathy. Heart and Vasculature: The heart is normal in size without pericardial effusion. Mild coronary artery and thoracic aortic calcifications. The great vessels are normal in caliber. Lungs and Airways: The central airways are patent. Low lung volumes. Visualization is slightly limited by expiratory phase imaging. Trace right pleural effusion with adjacent linear atelectasis/scarring. No pneumothorax. Bones: Cervical and thoracic spondylosis with multilevel anterior bridging vertebral body osteophytes, compatible with DISH. CT ABDOMEN/PELVIS: Liver: Normal in size with scattered hypodensities, likely cysts. The major portal veins are patent. No biliary ductal dilation. Gallbladder: Prior cholecystectomy. Spleen: Normal size. Pancreas: Unremarkable pancreas. Adrenals: No adrenal mass. Kidneys: Small bilateral renal cysts and additional hypodensities. Bilateral lower pole renal calculi. No hydronephrosis. Bladder: Moderately distended and unremarkable. Reproductive Organs: Mildly enlarged prostate which indents the bladder base. Bowel: The bowel loops are nondilated. No ascites or pneumoperitoneum. Normal appendix. Lymph nodes: No suspicious lymphadenopathy. Vasculature: The aortoiliac vessels are normal in caliber with mild mixed atherosclerotic plaque. Bones/soft tissues: Thoracolumbar spondylosis and severe degenerative disc disease, greatest in thelumbar spine. Small fat containing inguinal hernias. CT/CT Chest, Abd, Pel w/Contrast IMPRESSION: CT chest: 1. Trace right pleural effusion and adjacent atelectasis. 2. Mild coronary artery calcifications. CT abdomen/pelvis: Tiny nonobstructing renal calculi. Reading Location: [id number] CC: Dr. William Amado DO; Dr. James Chinchilla MD ~ [employer] Building: Signed [facility]04-23-2025 NoteHNO ID: [id number] Author: DOLLY LUCAS APRN.STRATEGIC ACCOUNTS MANAGER Service: ? Author Type: Nurse Practitioner Type: Progress Notes Filed: 12/26/2024 14:51 Note Text: Neurological [facility] NEURO-ONCOLOGY VIRTUAL VISIT NOTE I have communicated my name and active licensure. The patient's identity and physical location were verified at the time of this visit. Either the patient or their legal group sales representative has been informed of the risks and benefits of -- and alternatives to -- treatment through a remote evaluation and consents to proceed with the evaluation remotely. This is a virtual visit using HIPAA compliant video platform. It required patient-provider interaction for the medical decision making as documented below. PURPOSE OF VISIT: Ongoing patient management CHIEF COMPLAINT : MRI review for pituitary adenoma MEDICAL DECISION MAKING Assessment AND Plan 1. Incidental asymptomatic pituitary adenoma that showed interval growth on surveillance scans, now patient is s/p Endoscopic endonasal transphenoidal approach for resection of pituitary tumor (silent T-pit, Ki 3%) on 02/03/23 - MRI pituitary today appears to shows no recurrence - Images reviewed with the patient - Follow up in one year with new MRI pit in [place] and virtual visit - Continue to follow with endocrine Dr. Monika Lovett at [place] - Reviewed signs and symptoms that would prompt sooner evaluation - The patient has our contact information and was advised to call if new symptoms, questions or concerns arise prior to next scheduled visit. - All questions were answered. I spent a total of 15 minutes on the date of the service which included preparing to see the patient, [id number] patient care, completing clinical documentation, obtaining and/or reviewing separately obtained history, performing a medically appropriate examination and ordering medications, tests, or procedures. Dolly Lucas APRN.STRATEGIC ACCOUNTS MANAGER Certified Nurse Practitioner cc: Misha Weaver MD--[facility] Subjective HISTORY OF PRESENT ILLNESS: Myranda Olea is a 64 year old year old male who was found to have an incidental pituitary adenoma when he had a work up for chronic sinusitis. He last saw Dr. Weaver on 05/14/20 who recommend observation. INTERVAL HISTORY 11/26/20 Since he was last seen he denies any new symptoms. He had visual screening completed and reports no vision loss. His cortisol level and testosterone levels were slightly abnormal. He saw Dr. Lovett from endocrinology and her recommendation was to observe. He will see her in the fall of 2020 to repeat labs. 12/09/21 Since he was last seen he has seen Dr. Lovett and had his visual field testing. He reports minor TSH changes and his thyroid medication was slightly increased. He also had an elevated PSA, but is negative for prostate cancer. Overall he is feeling well, just slightly fatigued. 12/20/22 He last saw endo 3 weeks ago. The last time he had his endo labs (only TSH) was February 2022. He denies any fatigue, vision loss, he has had intentional weight loss. He has an optho appointment schedule March 25, 2023. 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 He is seeing Dr. Causey from endocrine and wished to see local obstetrics gynecology md. Currently on cortef 20mg in qAM 10mg q2pm. He is now on trulicity given hyperglycemia from cortef. He is feeling ok. Some days he feels fine other days fatigued. He is seeing Dr. Monika Lovett from endocrine. 12/26/24 He is anemic. He is seeing hematology. He is still cortef. SOCIAL HISTORY: Social History Tobacco Use Smoking status: Never Smokeless tobacco: Never Substance Use Topics Alcohol use: No Drug use: No PAST MEDICAL HISTORY Diagnosis Date Anemia Anemia Autoimmune disorder (HCC) HTN (hypertension) Hypothyroid Nonspecific abnormal finding in stool contents Other abnormal glucose Personal history of pneumonia (recurrent) Pure hyperglyceridemia Rheumatoid arthritis (HCC) FAMILY HISTORY Problem Relation Age of Onset Cancer Mother Hypertension Mother Coronary Artery Disease Father Prostate Cancer Father other (diverticulitis) Brother Anesthesia Problems No Family History Current Outpatient Medications Medication Sig TRULICITY 0.75 mg/0.5 mL pen injector benzonatate (TESSALON PERLES) 100 mg capsule Take 1 capsule by mouth three times a day as needed for cough. glimepiride (AMARYL) 2 mg tablet Take by mouth. mupirocin (CENTANY) 2 % ointment Use as directed twice daily. Dispense 22 gm tubes. 7 tubes = 1mos supply sodium chloride 0.9 % IRRIGATION Irrigate as directed each nostril with 60cc of solution twice daily. Dispense one liter bottles hydrocortisone (CORTEF) 5 mg tablet Take 3 tablets daily according to the steroid weaning schedule potassium chloride ER (KLOR-CON) 20 mEq tablet Take 1 tablet by mouth twice (more content not included)...[facility]04-21-2025 History of Present illness Narrative* Jessica Arrington RT(R) - 12/24/2024 12:30 PM EDT Radiology Service Progress Note DATE OF SERVICE: December 24, 2024 TIME: 12:25 PM PATIENT IDENTITY VERIFICATION COMPLETED USING TWO (2) STANDARD IDENTIFIERS: Name and Date of confirmed by patient verbally. FALL SCREENING: Has the patient had 2 falls in the last year or 1 fall with injury or currently using an Ambulatory Assistive Device (Walker, Cane, Wheelchair, Crutches, etc.)? No PATIENT GENDER DATA: Assigned male at PATIENT RELEVANT IMPLANT DATA REVIEWED: Yes PATIENT PRESENTS WITH AN IMPLANTABLE OR ATTACHED BUYER BROKER: No ALLERGIES: Reviewed and unchanged CONTRAST ALLERGY: NO. EXAM: MRI - CONTRAST TYPE: GROUP II PERIPHERAL IV DATA: Ambulatory: A peripheral IV was started in the Right antecubital site with a Angio cath: 22 gauge. RADIOLOGY DEPARTMENT: MR; Exam(s) Completed: Head: Pituitary SIGNATURE: RT Thea(R) PATIENT NAME: Myranda Olea DATE: December 24, 2024 TIME: 12:25 PM [facility] NoteHNO ID: [id number] Author: JESSICA ARRINGTON RT(R) Service: ? Author Type: Technologist Type: Progress Notes Filed: 12/24/2024 12:34 Note Text: Radiology Service Progress Note DATE OF SERVICE: December 24, 2024 TIME: 12:25 PM PATIENT IDENTITY VERIFICATION COMPLETED USING TWO (2) STANDARD IDENTIFIERS: Name and Date of confirmed by patient verbally. FALL SCREENING: Has the patient had 2 falls in the last year or 1 fall with injury or currently using an Ambulatory Assistive Device (Walker, Cane, Wheelchair, Crutches, etc.)? No PATIENT GENDER DATA: Assigned male at PATIENT RELEVANT IMPLANT DATA REVIEWED: Yes PATIENT PRESENTS WITH AN IMPLANTABLE OR ATTACHED BUYER BROKER: No ALLERGIES: Reviewed and unchanged CONTRAST ALLERGY: NO. EXAM: MRI - CONTRAST TYPE: GROUP II PERIPHERAL IV DATA: Ambulatory: A peripheral IV was started in the Right antecubital site with a Angio cath: 22 gauge. RADIOLOGY DEPARTMENT: MR; Exam(s) Completed: Head: Pituitary SIGNATURE: MICHELET Sidhu) PATIENT NAME: Myranda Olea DATE: December 24, 2024 TIME: 12:25 [facility] Evaluation note* Diagnosis Onset Date Resolution Status Admit Date Anemia chronic December 05 1:49pm High serum erythropoietin acute December 13, 2024 8:52am Anemia chronic December 13 8:52am Iron deficiency chronic December 8:52am Iron deficiency chronic December 2:20pm Back pain acute December 20 5:22pm Segmental and somatic dysfunction of cervical region acute A pril 2024 5:22pm Segmental and somatic dysfunction of lumbar region acute Apr il 2024 5:22pm Segmental and somatic dysfunction of pelvic region acute Apr il 2024 5:22pm Segmental and somatic dysfunction of thoracic region acute A pril 2024 5:22pm Rheumatoid arthritis chronic Apri l 2024 5:22pm Celiac disease acute January 09, 2 025 1:22pm High serum erythropoietin acute January 09, 2025 1:22pm Anemia chronic January 09, 2025 1:22pm Iron deficiency chronic January 09, 2025 1:22pm Anemia chronic January 10, 2025 10:50am Iron deficiency chronic January 10, 2025 10:50am Back pain acute January 24, 2025 5:23pm Segmental and somatic dysfunction of cervical region acute M ay 2024 5:23pm Segmental and somatic dysfunction of lumbar region acute January 24, 2025 5:23pm Segmental and somatic dysfunction of pelvic region acute January 24, 2025 5:23pm Segmental and somatic dysfunction of thoracic region acute M ay 2024 5:23pm Rheumatoid arthritis chronic January 24, 2025 5:23pm Diabetes chronic February 21 3:59pm Hypertension chronic February 21, 2 025 3:59pm Mixed hyperlipidemia chronic February 21, 2025 3:59pm Obesity chronic February 21 3:59pm Secondary adrenal insufficiency clinician oncology ronni February 21, 2025 3:59pm Secondary hypothyroidism chronic February 21, 2025 3:59pm Back pain acute February 21 5:26pm Segmental and somatic dysfunction of cervical region acute J une 2024 5:26pm Segmental and somatic dysfunction of lumbar region acute [place] [facility] 2024 5:26pm Segmental and somatic dysfunction of pelvic region acute Feb 5:26pm Segmental and somatic dysfunction of thoracic region acute J une 2024 5:26pm Rheumatoid arthritis chronic February 21, 2025 5:26pm Celiac disease acute March 01, 2025 5:55am Pancreatic calcification acute March 12, 2025 9:27am Anemia chronic March 12, 2025 9:27am Iron deficiency chronic March 12, 2025 9:27am Segmental and somatic dysfunction of cervical region acute J rita 2024 5:24pm Segmental and somatic dysfunction of lumbar region acute Javid 2024 5:24pm Segmental and somatic dysfunction of thoracic region acute J rita 2024 5:24pm [place] [employer] Work Phone: 1(923) 713-250503-14-2025 Telephone encounter Note* Telephone Encounter - Sharda Minaya - 11/16/2024 11:54 AM EDT [id number] Miscellaneous Notes* Telephone Encounter - Sharda Rei - 11/16/2024 11:54 AM EDT Referral and records faxed * Telephone Encounter - Claudia Saavedra - 11/16/2024 11:50 AM EDT To Sharda to follow up * Telephone Encounter - Charly Ye - 11/16/2024 11:25 AM EDT Name of caller: [employer]igo Contact phone number: [phone] Relationship to Patient: [facility] Provider: Dr. Amado Practice: [facility] Chief Complaint/Reason for Call: Indigo states that she received a call from the patient's stating the patient was referred to them with diagnosis of anemia. Indigo states they have not receiveda referral yet. Indigo states to please fax a referral to them at fax [phone] and please include all office notes, related labs, and blood work. Please send referral. Best time of day caller can be reached: any Patient advised that office/PCP has 24-48 business hours to return their call: N/A documented in this encounterSMadison [id number] Telephone encounter Note* Telephone Encounter - Claudia Saavedra - 11/16/2024 11:50 AM EDT To Sharda to follow [id number] Telephone encounter Note* Telephone Encounter - Charly eY - 11/16/2024 11:25 AM EDT Name of caller: [employer]igo Contact phone number: [phone] Relationship to Patient: [facility] Provider: Dr. Amado Practice: [facility] Chief Complaint/Reason for Call: Indigo states that she received a call from the patient's stating the patient was referred to them with diagnosis of anemia. Indigo states they have not receiveda referral yet. Indigo states to please fax a referral to them at fax [phone] and please include all office notes, related labs, and blood work. Please send referral. Best time of day caller can be reached: any Patient advised that office/PCP has 24-48 business hours to return their call: N/A [id number] Evaluation note* Diagnosis Onset Date Resolution Status Admit Date Back pain acute November 15 4:56pm Segmental and somatic dysfunction of cervical region acute M arch 2024 4:56pm Segmental and somatic dysfunction of lumbar region acute [facility] 2024 4:56pm Segmental and somatic dysfunction of pelvic region acute [facility] 2024 4:56pm Segmental and somatic dysfunction of thoracic region acute M arch 2024 4:56pm DJD (degenerative joint disease), lumbar chronic November 15 4:56pm Anemia chronic December 05 1:49pm High serum erythropoietin acute December 13, 2024 8:52am Anemia chronic December 13 8:52am Iron deficiency chronic December 8:52am Iron deficiency chronic December 2:20pm Back pain acute December 20 5:22pm Segmental and somatic dysfunction of cervical region acute A pril 2024 5:22pm Segmental and somatic dysfunction of lumbar region acute Apr il 2024 5:22pm Segmental and somatic dysfunction of pelvic region acute Apr il 2024 5:22pm Segmental and somatic dysfunction of thoracic region acute A pril 2024 5:22pm Rheumatoid arthritis chronic Apri l 2024 5:22pm Celiac disease acute January 09, 2 025 1:22pm High serum erythropoietin acute January 09, 2025 1:22pm Anemia chronic January 09, 2025 1:22pm Iron deficiency chronic January 09, 2025 1:22pm Anemia chronic January 10, 2025 10:50am Iron deficiency chronic January 10, 2025 10:50am Back pain acute January 24, 2025 5:23pm Segmental and somatic dysfunction of cervical region acute M ay 2024 5:23pm Segmental and somatic dysfunction of lumbar region acute January 24, 2025 5:23pm Segmental and somatic dysfunction of pelvic region acute January 24, 2025 5:23pm Segmental and somatic dysfunction of thoracic region acute M ay 2024 5:23pm Rheumatoid arthritis chronic January 24, 2025 5:23pm Segmental and somatic dysfunction of cervical region acute [facility] 2024 5:26pm Segmental and somatic dysfunction of lumbar region acute [place] [facility] 2024 5:26pm Segmental and somatic dysfunction of thoracic region acute [facility] 2024 5:26pm [facility] [employer] Work Phone: 1(225) 658-834303-13-2025 Evaluation note* Diagnosis Onset Date Resolution Status Admit Date Back pain acute November 15 4:56pm Segmental and somatic dysfunction of cervical region acute M arch 2024 4:56pm Segmental and somatic dysfunction of lumbar region acute [facility] 2024 4:56pm Segmental and somatic dysfunction of pelvic region acute [facility] 2024 4:56pm Segmental and somatic dysfunction of thoracic region acute M arch 2024 4:56pm DJD (degenerative joint disease), lumbar chronic November 15 4:56pm Anemia chronic December 05 1:49pm High serum erythropoietin acute December 13, 2024 8:52am Anemia chronic December 13 8:52am Iron deficiency chronic December 8:52am Iron deficiency chronic December 2:20pm Back pain acute December 20 5:22pm Segmental and somatic dysfunction of cervical region acute A pril 2024 5:22pm Segmental and somatic dysfunction of lumbar region acute Apr il 2024 5:22pm Segmental and somatic dysfunction of pelvic region acute Apr il 2024 5:22pm Segmental and somatic dysfunction of thoracic region acute A pril 2024 5:22pm Rheumatoid arthritis chronic Apri l 2024 5:22pm Celiac disease acute January 09, 2 025 1:22pm High serum erythropoietin acute January 09, 2025 1:22pm Anemia chronic January 09, 2025 1:22pm Iron deficiency chronic January 09, 2025 1:22pm Anemia chronic January 10, 2025 10:50am Iron deficiency chronic January 10, 2025 10:50am Back pain acute January 24, 2025 5:23pm Segmental and somatic dysfunction of cervical region acute M ay 2024 5:23pm Segmental and somatic dysfunction of lumbar region acute January 24, 2025 5:23pm Segmental and somatic dysfunction of pelvic region acute January 24, 2025 5:23pm Segmental and somatic dysfunction of thoracic region acute M ay 2024 5:23pm Rheumatoid arthritis chronic January 24, 2025 5:23pm Diabetes chronic February 21 3:59pm Hypertension chronic February 21, 2 025 3:59pm Mixed hyperlipidemia chronic February 21, 2025 3:59pm Obesity chronic February 21 3:59pm Secondary adrenal insufficiency clinician oncology ronni February 21, 2025 3:59pm Secondary hypothyroidism chronic February 21, 2025 3:59pm Back pain acute February 21 5:26pm Segmental and somatic dysfunction of cervical region acute [facility] 2024 5:26pm Segmental and somatic dysfunction of lumbar region acute Feb 5:26pm Segmental and somatic dysfunction of pelvic region acute [place] [facility] 2024 5:26pm Segmental and somatic dysfunction of thoracic region acute [facility] 2024 5:26pm Rheumatoid arthritis chronic February 21, 2025 5:26pm Celiac disease acute March 01, 2025 5:55am [facility] Work Phone: 1(256) 365-603503-13-2025 Note* Addendum Note - William Amado DO - 11/15/2024 12:06 PM EDTAddended by: WILLIAM AMADO on: 11/15/2024 12:06 PM Modules accepted: Orders [address] [id number] Note* Addendum Note - William Dominique DO Aneudy - 11/15/2024 12:06 PM EDTAddended by: WILLIAM AMADO on: 11/15/2024 12:06 PM Modules accepted: Orders [id number] Note* Addendum Note - William Dominique DO Aneudy - 11/15/2024 12:06 PM EDTAddended by: WILLIAM AMADO on: 11/15/2024 12:06 PM Modules accepted: Orders [id number] Note* Addendum Note - William Dominique ArdenmiltonDO red - 11/15/2024 12:06 PM EDTAddended by: WILLIAM AMADO on: 11/15/2024 12:06 PM Modules accepted: Orders [id number] Miscellaneous Notes* Addendum Note - William Dominique DO Aneudy - 11/15/2024 12:06 PM EDTAddended by: WILLIAM AMADO on: 11/15/2024 12:06 PM Modules accepted: Orders * Telephone Encounter - Claudia Saavedra - 11/15/2024 8:43 AM EDT Referral to Dr Parmar pended for dx and doctor's signature * Addendum Note - Claudia Saavedra - 11/15/2024 8:43 AM EDTAddended by: CLAUDIA SAAVEDRA on: 11/15/2024 08:43 AM Modules accepted: Orders * Telephone Encounter - Claudia Saavedra - 11/15/2024 8:42 AM EDT Referral to Dr Parmar pended for dx and doctor's signature * Telephone Encounter - Ermelinda Boykin LPN - 11/13/2024 11:15 AM EDT Patient read his [employer] message * Telephone Encounter - William Amado DO - 11/11/2024 9:42 PM EDT Report patient that I received all the lab work on his workup for his anemia. In summary I think hehas anemia of chronic disease specifically his inflammatory arthritis. He has had a waxing and waning of his blood count for at least 14 years. Recent labs shows no evidence of iron or B12 deficiency, thyroid issues, or chronic renal or liver issues that can contribute to anemia. There is no signs of abnormal bone marrow proteins like multiple myeloma. To reassure his physician surgeon and himself Iwould recommend an opinion from staff physician. Refer to Michael Atkinson for another opinion. Of note because he is not iron deficient I do not think he is bleeding anywhere but for completeness sake he should consider getting an upper endoscopy again. In my previous notes Dr. Aragon recommendedhim to have 1 in follow-up after getting an EGD in 2018. But hematology and rheumatology might recommend that as well. Send a copy of this lab to his talent acquisition specialist Dr. Zuniga who just did his colonoscopy last fall for him to consider doing an EGD. At this time I have no recommendations on his meds. documented in this [facility]03-13-[address] Parmar pended for dx and doctor's signatureSHelen [facility]03-13-[facility] Telephone encounter Note* Telephone Encounter - Claudia Saavedra - 11/15/2024 8:43 AM EDT Referral to Dr Parmar pended for dx and doctor's signature [place] [id number] Note* Addendum Note - Claudia Saavedra - 11/15/2024 8:43 AM EDTAddended by: CLAUDIA SAAVEDRA on: 11/15/2024 08:43 AM Modules accepted: Orders [place] [id number] Note* Addendum Note - Claudia Saavedra - 11/15/2024 8:43 AM EDTAddended by: CLAUDIA SAAVEDRA on: 11/15/2024 08:43 AM Modules accepted: Orders [place] [id number] Note* Addendum Note - Claudia Saavedra - 11/15/2024 8:43 AM EDTAddended by: CLAUDIA SAAVEDRA on: 11/15/2024 08:43 AM Modules accepted: Orders [place] [id number] Note* Addendum Note - Claudia Saavedra - 11/15/2024 8:43 AM EDTAddended by: CLAUDIA SAAVEDRA on: 11/15/2024 08:43 AM Modules accepted: Orders [place] [id number] Parmar pended for dx and doctor's signatureSHelen [facility]03-13-2025 Telephone encounter Note* Telephone Encounter - Claudia Saavedra - 11/15/2024 8:42 AM EDT Referral to Dr Parmar pended for dx and doctor's signature [id number] Telephone encounter Note* Telephone Encounter - Ermelinda Boykin LPN - 11/13/2024 11:15 AM EDT Patient read his [employer] message [facility] [id number] Telephone encounter Note* Telephone Encounter - William Dominique DO Aneudy - 11/11/2024 9:42 PM EDT Report patient that I received all the lab work on his workup for his anemia. In summary I think hehas anemia of chronic disease specifically his inflammatory arthritis. He has had a waxing and waning of his blood count for at least 14 years. Recent labs shows no evidence of iron or B12 deficiency, thyroid issues, or chronic renal or liver issues that can contribute to anemia. There is no signs of abnormal bone marrow proteins like multiple myeloma. To reassure his physician surgeon and himself Iwould recommend an opinion from staff physician. Refer to Michael Atkinson for another opinion. Of note because he is not iron deficient I do not think he is bleeding anywhere but for completeness sake he should consider getting an upper endoscopy again. In my previous notes Dr. Aragon recommendedhim to have 1 in follow-up after getting an EGD in 2018. But hematology and rheumatology might recommend that as well. Send a copy of this lab to his talent acquisition specialist Dr. Zuniga who just did his colonoscopy last fall for him to consider doing an EGD. At this time I have no recommendations on his meds. [facility] [id number] History of Present illness Narrative* William Catina DO Aneudy - 10/25/2024 12:00 PM EST Images from the original note were not included. [facility] - [address] [facility] [address] Dept: [phone] Dept Loc: [phone] Patient was identified and seen today via Telehealth by agreement and consent. I used the followingTelehealth technology: Audio and video capabilities. Patient location: Patient Location: Home. This patient encounter is appropriate and reasonable under the circumstances: consultation . The patient has been advised of the potential risks and limitations of this mode of treatment (including but not limited to the absence of in-person examination) and has agreed to be treated in a remote fashion in spite of them. Any and all of the patient's/patient's family's questions on this issue have been answered and I have made no promises or guarantees to the patient. The patient has also been advised to contact this office for worsening conditions or problems, and seek emergency medical treatment and/or call 911 if the patient deems either necessary. The patient stated that they are currently in the [facility]. If the patient is a minor, permission has been obtained by the parent or guardian for the patient to receive medical care at this visit. Assessment/Plan Diagnoses and all orders for this visit: Normochromic normocytic anemia (Primary) - Ferritin; Future - Protein, Total and Protein Electrophoresis - Vitamin B12; Future - Iron and TIBC; Future - Vitamin D Deficiency Screening (Vit D 25); Future - Folate RBC; Future - CBC auto differential; Future - T4, free; Future - T3, free; Future - TSH; Future - Ferritin - Vitamin B12 - Iron and TIBC - Vitamin D Deficiency Screening (Vit D 25) - Folate RBC - CBC auto differential - T4, free - T3, free - TSH Inflammatory arthritis Psoriatic arthritis (HCC) On the video certainly alert and oriented. No acute distress. No follow-ups on file. Might need hematology versus gastroenterology consultation. See above lab orders. Laney Olea is a 64 y.o. who presents on the video for a remote visit. Chief complaint: No chief complaint on file. Consultation for anemia workup HPI Non-smoker with a history of autoimmune arthritis/psoriatic arthritis, glucose intolerance, pituitary adenoma, eosinophilic esophagitis and colonic polyps presents to discuss recurrent mild normochromic normocytic anemia recently found on his rheumatologic lab. Interview in my records it states the patient has had mild anemia as far back as 2010. At that timehe underwent upper and lower endoscopy for workup that showed no substantial GI bleeding source. Since about 2014 he has had episodes where his hemoglobin drops in the 11/2-12 and half range. Presently is in the high 12 range. Appears to be normochromic and normocytic. And in the past he has had hem oglobins as low as 11. His past ferritin was normal and iron slightly low at 53 with low normal being 65. Normal percent saturation and TIBC. Has not had any B12 or serum protein electrophoresis levels drawn. He has no upper GI complaints. No PPI use. Has not had an upper endoscopy for 6 years. Recent colonoscopy in June showed some polyps and recommended recheck in 5 years. Of note he does state his talent acquisition specialist recommended vitamin D therapy to prevent polyps. He would like that level drawn. He denies dysphagia or heartburn. No abdominal pain. Bowels are regular. No melena or blood. No constipation diarrhea. He is not a vegetarian. Allergies Allergen Reactions Milk (Cow) Other reaction(s): GI Upset cough, diarrhea, scratchy throat Other reaction(s): GI Upset Diltiazem Other reaction(s): Other (See Comments) edema Other reaction(s): Unknown Milk-Related Compounds Other reaction(s): Other (See Comments) Lactose intolerant Other reaction(s): Diarrhea Other reaction(s): Diarrhea [] PMH, allergies, and social history reviewed and updated as appropriate [] Medication list reviewed/updated [] Allergies reviewed/updated [] Problem list reviewed/updated [] Patient requests medication refills, see below for orders. William Amado DO 10/25/2024 12:56 PM documented in this [facility]02-18-2025 Telephone encounter Note* Telephone Encounter - Jena Ring - 10/23/2024 2:05 PM EST Name of caller: Adela Contact phone number: [phone] Relationship to Patient: spouse/SO Provider: Dr. Amado Practice: [facility] Chief Complaint/Reason for Call: The patient received a message through his My Chart : per Dr. Amado This patient had this mild anemia for 14 years. Probably due to his inflammatory arthritis. HoweverI acknowledge he recently had a colonoscopy that excluded some type of GI bleeding from below but he should make an appointment to discuss options for either doing an upper endoscopy to exclude a GI bleed from his esophagitis or consideration for referral to staff physician. He also needs some other lab work for his anemia. The patients would like a call back as to what they should do because they didn't understand the message. Please advise. Best time of day caller can be reached: Any Patient advised that office/PCP has 24-48 business hours to return their call: No [facility] [id number] Miscellaneous Notes* Telephone Encounter - Jena Ring - 10/23/2024 2:05 PM EST Name of caller: Adela Contact phone number: [phone] Relationship to Patient: spouse/SO Provider: Dr. Amado Practice: [facility] Chief Complaint/Reason for Call: The patient received a message through his My Chart : per Dr. Amado This patient had this mild anemia for 14 years. Probably due to his inflammatory arthritis. HoweverI acknowledge he recently had a colonoscopy that excluded some type of GI bleeding from below but he should make an appointment to discuss options for either doing an upper endoscopy to exclude a GI bleed from his esophagitis or consideration for referral to staff physician. He also needs some other lab work for his anemia. The patients would like a call back as to what they should do because they didn't understand the message. Please advise. Best time of day caller can be reached: Any Patient advised that office/PCP has 24-48 business hours to return their call: No documented in this [facility]02-17-2025 Telephone encounter Note* Telephone Encounter - Lidia Heredia MA - 10/22/2024 10:13 AM EST Last OV:07/11/24 Scheduled:01/10/25 Called and spoke to . Stated the obstetrics gynecology md advised anemia work up to due trending results from [employer]: 07/06/24- 10.8 08/03/24- 12.3 09/15/24- 12.3 - 11.7 stated they feel this is from patients medication sulfaSALAzine 500mg [facility] [id number] Miscellaneous Notes* Telephone Encounter - Lidia Heredia MIGUEL ÁNGEL - 10/22/2024 10:13 AM EST Last OV:07/11/24 Scheduled:01/10/25 Called and spoke to . Stated the obstetrics gynecology md advised anemia work up to due trending results from [employer] [facility]: 07/06/24- 10.8 08/03/24- 12.3 09/15/24- 12.3 - 11.7 stated they feel this is from patients medication sulfaSALAzine 500mg * Telephone Encounter - Trudy Farley - 10/22/2024 9:57 AM EST Name of caller: Adela Contact phone number: [phone] Relationship to Patient: spouse/SO Provider: Practice: [facility] Chief Complaint/Reason for Call: Patients calling and states the obstetrics gynecology md recommends ananemia work up. requesting the orders be sent to [facility]. Please advise. Best time of day caller can be reached: any Patient advised that office/PCP has 24-48 business hours to return their call: no documented in this encounterSMadison [id number] Telephone encounter Note* Telephone Encounter - Trudy Farley - 10/22/2024 9:57 AM EST Name of caller: Adela Contact phone number: [phone] Relationship to Patient: spouse/SO Provider: Practice: [facility] Chief Complaint/Reason for Call: Patients calling and states the obstetrics gynecology md recommends ananemia work up. requesting the orders be sent to [facility]. Please advise. Best time of day caller can be reached: any Patient advised that office/PCP has 24-48 business hours to return their call: no [id number] Evaluation note* Diagnosis Onset Date Resolution Status Admit Date Back pain acute September 20, 2024 5:24pm Segmental and somatic dysfunction of cervical region acute J anuary 2024 5:24pm Segmental and somatic dysfunction of lumbar region acute Isai uary 2024 5:24pm Segmental and somatic dysfunction of pelvic region acute Isai uary 2024 5:24pm Segmental and somatic dysfunction of thoracic region acute J anuary 2024 5:24pm Rheumatoid arthritis chronic Neil fidel 2024 5:24pm Segmental and somatic dysfunction of cervical region acute F ebruary 2024 5:25pm Segmental and somatic dysfunction of lumbar region acute Feb ruary 2024 5:25pm Segmental and somatic dysfunction of pelvic region acute Feb ruary 2024 5:25pm Segmental and somatic dysfunction of thoracic region acute F ebruary 2024 5:25pm DJD (degenerative joint disease), lumbar chronic October 18, 2024 5:25pm Back pain acute November 15 4:56pm Segmental and somatic dysfunction of cervical region acute M arch 2024 4:56pm Segmental and somatic dysfunction of lumbar region acute [facility] 2024 4:56pm Segmental and somatic dysfunction of pelvic region acute [facility] 2024 4:56pm Segmental and somatic dysfunction of thoracic region acute M arch 2024 4:56pm DJD (degenerative joint disease), lumbar chronic November 15 4:56pm Anemia chronic December 05 1:49pm High serum erythropoietin acute December 13, 2024 8:52am Anemia chronic December 13 8:52am Iron deficiency chronic December 8:52am Iron deficiency chronic December 2:20pm Back pain acute December 20 5:22pm Segmental and somatic dysfunction of cervical region acute A pril 2024 5:22pm Segmental and somatic dysfunction of lumbar region acute Apr il 2024 5:22pm Segmental and somatic dysfunction of pelvic region acute Apr il 2024 5:22pm Segmental and somatic dysfunction of thoracic region acute A pril 2024 5:22pm Rheumatoid arthritis chronic Apri l 2024 5:22pm Celiac disease acute January 09, 2 025 1:22pm High serum erythropoietin acute January 09, 2025 1:22pm Anemia chronic January 09, 2025 1:22pm Iron deficiency chronic January 09, 2025 1:22pm [facility] Work Phone: 1(274) 462-652412-19-2024 Evaluation note* Diagnosis Onset Date Resolution Status Admit Date Segmental and somatic dysfunction of cervical region acute August 23, 2 024 5:25pm Segmental and somatic dysfunction of lumbar region acute Dec ember 2023 5:25pm Segmental and somatic dysfunction of pelvic region acute Dec emb2023 5:25pm Segmental and somatic dysfunction of thoracic region acute August 23, 024 5:25pm DJD (degenerative joint disease), lumbar chronic August 23, 2024 5:25pm Rheumatoid arthritis chronic [facility] 2023 5:25pm Back pain acute September 20, 2024 5:24pm Segmental and somatic dysfunction of cervical region acute September 20 5:24pm Segmental and somatic dysfunction of lumbar region acute [facility] 2024 5:24pm Segmental and somatic dysfunction of pelvic region acute [facility] 2024 5:24pm Segmental and somatic dysfunction of thoracic region acute September 20 5:24pm Rheumatoid arthritis chronic [facility] 2024 5:24pm Segmental and somatic dysfunction of cervical region acute October 18, 025 5:25pm Segmental and somatic dysfunction of lumbar region acute Feb ruary 2024 5:25pm Segmental and somatic dysfunction of pelvic region acute Feb ruary 2024 5:25pm Segmental and somatic dysfunction of thoracic region acute October 18, 025 5:25pm DJD (degenerative joint disease), lumbar chronic October 18, 2024 5:25pm Back pain acute November 15 4:56pm Segmental and somatic dysfunction of cervical region acute November 15, 2024 4:56pm Segmental and somatic dysfunction of lumbar region acute [facility] 2024 4:56pm Segmental and somatic dysfunction of pelvic region acute [facility] 2024 4:56pm Segmental and somatic dysfunction of thoracic region acute November 15, 2024 4:56pm DJD (degenerative joint disease), lumbar chronic November 15 4:56pm [facility] Work Phone: 1(222) 947-732212-19-2024 Evaluation note* Diagnosis Onset Date Resolution Status Admit Date Segmental and somatic dysfunction of cervical region acute August 23, 2 024 5:25pm Segmental and somatic dysfunction of lumbar region acute Aug emb2023 5:25pm Segmental and somatic dysfunction of pelvic region acute Aug emb2023 5:25pm Segmental and somatic dysfunction of thoracic region acute August 23, 2 024 5:25pm DJD (degenerative joint disease), lumbar chronic August 23, 2024 5:25pm Rheumatoid arthritis chronic [facility] mb2023 5:25pm Back pain acute September 20, 2024 5:24pm Segmental and somatic dysfunction of cervical region acute September 20 5:24pm Segmental and somatic dysfunction of lumbar region acute Isai [facility] 2024 5:24pm Segmental and somatic dysfunction of pelvic region acute Isai [facility] 2024 5:24pm Segmental and somatic dysfunction of thoracic region acute September 20 5:24pm [facility]umatoid [facility] 5:24[facility] Segmental and somatic dysfunction of cervical region acute October 18, 2 025 5:25pm Segmental and somatic dysfunction of lumbar region acute Feb ruary 2024 5:25pm Segmental and somatic dysfunction of pelvic region acute Feb ruary 2024 5:25pm Segmental and somatic dysfunction of thoracic region acute October 18, 2 025 5:25pm DJD (degenerative joint disease), lumbar chronic October 18, 2024 5:25pm Back pain acute November 15 4:56pm Segmental and somatic dysfunction of cervical region acute November 15, 2024 4:56pm Segmental and somatic dysfunction of lumbar region acute [facility] 2024 4:56pm Segmental and somatic dysfunction of pelvic region acute [facility] 2024 4:56pm Segmental and somatic dysfunction of thoracic region acute November 15, 2024 4:56pm DJD (degenerative joint disease), lumbar chronic November 15 4:56pm Anemia chronic December 05 1:49pm [facility] Work Phone: 1(607) 970-298511-06-2024 History of Present illness Narrative* William Amado DO - 07/11/2024 7:30 AM EST Images from the original note were not included. [facility] - [address] [facility] [id number] Visit type: Established Patient Reason for Visit: Annual Exam (Physical ) Assessment / Plan: Graeme was seen today for annual exam. Diagnoses and all orders for this visit: Annual physical exam (Primary) Inflammatory arthritis Anemia of chronic disease Comments: Stable, follow-up with endocrine and rheumatology Psoriatic arthritis (HCC) Hx of colonic polyps Comments: Noted, colonoscopy 3 years Family history of prostate cancer Hypertriglyceridemia Comments: Stable, continue Lipitor Essential hypertension Comments: Uncontrolled, increase clonidine. BP check 4 weeks continue all other meds Pituitary adenoma (HCC) Type 2 diabetes mellitus without complication, without long-term current use of insulin (CMS/HCC) (HCC) Comments: Stable, continue Trulicity Acquired hypothyroidism Comments: Stable, continue Levothyroid Elevated prostate specific antigen less than 10 ng/ml Comments: Stable, continue Proscar and obtain PSA per urology in a few months Other orders - atorvastatin (Lipitor) 10 MG tablet; Take 1 tablet (10 mg) by mouth Nightly for 360 doses. - carvedilol (Coreg) 25 MG tablet; Take 1 tablet (25 mg) by mouth 2 times daily (with meals). - cloNIDine (Catapres) 0.3 MG tablet; One q AM , one q afternoon, then 2 q PM - finasteride (Proscar) 5 MG tablet; Take 1 tablet (5 mg) by mouth daily. - hydrALAZINE (Apresoline) 100 MG tablet; Take 1 tablet (100 mg) by mouth 3 times daily. - lisinopril 40 MG tablet; Take 1 tablet (40 mg) by mouth daily. Subjective: Patient ID: Myranda Olea is a 63 y.o. male. HPI annual physical for well-controlled diabetic on Trulicity, with history of hypertension, hyperlipidemia. Pituitary tumor and elevated PSA. Overall has felt well. Last A1c per endocrine was 5.0. He recently underwent a colonoscopy show recurrent polyps and needs an exam in 3 years. Also gets hisPSA followed which has been slightly elevated by urology in a few months. Review of Systems has had struggles getting off Solu-Medrol for his pituitary lesion. Still at 2030mg a day. Glucose levels are excellent. Blood pressure does run above 130 at home and other appointments. He does not feel ill. Vaccinations up-to-date. No recent earache sore throat or cough. Denies chestpain or dyspnea. No heartburn. No abdominal pain. Bowels are regular. No melena or blood. Some nocturia but denies dysuria hematuria. No change in arthralgias. His rheumatoid is well treated with sulfasalazine. Allergies Allergen Reactions Milk (Cow) Other reaction(s): GI Upset cough, diarrhea, scratchy throat Other reaction(s): GI Upset Diltiazem Other reaction(s): Other (See Comments) edema Other reaction(s): Unknown Milk-Related Compounds Other reaction(s): Other (See Comments) Lactose intolerant Other reaction(s): Diarrhea Other reaction(s): Diarrhea Current Outpatient Medications on File Prior to Visit Medication Sig Dispense Refill acetaminophen (Tylenol 8 Hour) 650 MG ER tablet Take 650 mg by mouth every 8 hours as needed for mild pain (1-3). Do not crush, chew, or split. cholecalciferol (Vitamin D3) 25 MCG (1000 UT) tablet Take by mouth daily. hydrocortisone (Cortef) 10 MG tablet hydrocortisone 2.5 % cream Apply topically. ketoconazole (NIZOral) 2 % shampoo levothyroxine (Synthroid, Levoxyl) 75 MCG tablet Multiple Vitamins-Iron (MULTI-VITAMIN/IRON PO) Take by mouth. oxybutynin XL (Ditropan-XL) 10 MG 24 hr tablet sodium chloride 0.9 % irrigation solution Irrigate as directed each nostril with 60cc of solution twice daily. Dispense one liter bottles sulfaSALAzine 500 MG EC tablet Take 1,000 mg by mouth 2 times daily. Trulicity 0.75 MG/0.5ML solution pen-injector Inject 0.75 mg under the skin 1 (one) time per week. (Patient taking differently: Inject 0.75 mg under the skin 1 (one) time per week. 1.5) [DISCONTINUED] atorvastatin (Lipitor) 10 MG tablet Take 1 tablet (10 mg) by mouth Nightly for 360 doses. 90 tablet 1 [DISCONTINUED] carvedilol (Coreg) 25 MG tablet Take 1 tablet (25 mg) by mouth in the morning and 1 tablet (25 mg) in the evening. Take with meals. 180 tablet 1 [DISCONTINUED] cloNIDine (Catapres) 0.3 MG tablet Inc to 0.3 mg tab TID 270 tablet 1 [DISCONTINUED] finasteride (Proscar) 5 MG tablet Take 1 tablet (5 mg) by mouth daily. 90 tablet 1 [DISCONTINUED] hydrALAZINE (Apresoline) 100 MG tablet Take 1 tablet (100 mg) by mouth 3 times daily. 270 tablet 1 [DISCONTINUED] lisinopril 40 MG tablet Take 1 tablet (40 mg) by mouth daily. 90 tablet 1 Glucose Blood (Blood Glucose Test) strip 100 strips by Other route. Lancets ([employer] Delica Plus [id number]) mis OneTouch Verio test strip [DISCONTINUED] glimepiride (Amaryl) 2 MG tablet (Patient not taking: Reported on 07/11/2024) [DISCONTINUED] mirabegron ER (Myrbetriq) 50 MG 24 hr tablet (Patient not taking: Reported on 07/11/2024) No current facility-administered medications on file prior to visit. Patient Active Problem List Diagnosis Pituitary neoplasm Hypertriglyceridemia Pneumonia Inflammatory arthritis Hypothyroid Prediabetes Hx of colonic polyps Anemia of chronic disease Psoriatic arthritis (HCC) Lactose intolerance Eosinophilic esophagitis Family history of prostate cancer Sleep apnea Essential hypertension Seasonal allergic rhinitis Elevated prostate specific antigen less than 10 ng/ml DJD (degenerative joint disease), lumbar Family history of diabetes mellitus in father Type 2 diabetes mellitus without complication, without long-term current use of insulin ([facility]/HCC) (HCC) Social History Tobacco Use Smoking status: Never Smokeless tobacco: Never Substance Use Topics Alcohol use: No Alcohol/week: 0.0 standard drinks of alcohol Past Surgical History: Procedure Laterality Date CHOLECYSTECTOMY 2015 COLONOSCOPY 2017 small polyp - Mahesh COLONOSCOPY 2010 Dr. Cavanaugh COLONOSCOPY W/ POLYPECTOMY 06/2021 Dr. Zuniga, few polyps/divert ds- due 2023 COLONOSCOPY W/ POLYPECTOMY 06/2024 Dr. Zuniga- rech due 2026 MAXILLARY SINUSOTOMY (HISTORICAL) 2019 Dr. Lo PITUITARY TUMOR RESECTION (HISTORICAL) 02/2023 [facility] PROSTATE BIOPSY 10/2021 Dr. Norwood, Michael TONSILLECTOMY (HISTORICAL) remote UPPER GASTROINTESTINAL ENDOSCOPY 05/2018 [place]- neg, due 2022 UPPER GASTROINTESTINAL ENDOSCOPY N/A 2011 [facility] Family History Problem Relation Name Age of Onset Lung cancer Mother Iraida 79 adeno CA, nonsmoker, age 81 in 07/2022 High Blood Pressure Mother Iraida Lymphoma Mother Iraida lymphoma Diabetes Father Noe Prostate cancer Father Noe Duran at age 70 in 2008 Coronary artery disease Father Noe Prostate cancer Brother Tomy 52 s/p prostatectomy Hypertension Brother Tomy Prostate cancer Brother Adán Duran age 60 in 03/26 mets to bone, spinal cord comp Hypertension Maternal Grandmother in 80s, COPD Maternal Grandfather miners lung, [place] [employer] Diabetes Paternal Grandmother age 70 Diabetes Paternal Grandfather Objective: BP (!) 142/84 Pulse 68 Temp 36.4 C (97.5 F) (Temporal) Ht 5' 8 (1.727 m) Wt 235 lb (107 kg) SpO2 96% BMI 35.73 kg/m Physical Exam The physical exam is generally normal. Patient appears well, alert and oriented x 3, pleasant, cooperative. Vitals are as noted. No carotid bruits. Neck supple, no abnormal adenopathy, thyroid lesions or masses. Ears, nose and throat are normal without acute findings. Lungs are clear to auscultation. Heart is regular, without murmurs, gallops or ectopy. Abdomen is soft, non tender, without masses, hepatosplenomegaly, or bruits. Normal BS evident. Extremities are normal without edema. Peripheralpulses are fair. No worrisome skin lesions. Screening neurological exam is normal without focal deficits. documented in this [facility]10-14-2024 [facility] Medical Records Department [address] [place] [address] History Physical Exam 06/18/24 0642 MR#: [id number] Acct: [id number] Name: MYRANDA OLEA Rep #: [id number] : 1960 63 From: Mitchel Zuniga DO PCP: Dr. William Amado DO Status:[facility] Location: [place] [address] HPI - General General Date of Admission: 06/18/24 Date of Service: 06/18/24 Chief Complaint: Personal history of polyps HPI Narrative MYRANDA OLEA, is a 63 M who presents today for follow-up colonoscopy. He had a colonoscopy back in 2020. He had multiple adenomatous polyps with only a fair prep during that time. He also has a history of chronic pancreatitis and eosinophilic esophagitis. He is not have any other problems at this time. [facility] Medical History Mixed hyperlipidemia Secondary male hypogonadism Secondary adrenal insufficiency Uncontrolled hypertension Acute sinusitis, unspecified Diabetes Secondary hypothyroidism Pancreatic calcification Wears glasses Diabetes Thyroid disease Rheumatoid arthritis Bladder disease Anemia Excessive bleeding Back pain Non-smoker CPAP (continuous positive airway pressure) dependence Leg cramps Hypertension History of colon polyps Chronic pancreatitis Lactose intolerance DJD (degenerative joint disease), lumbar Eosinophilic esophagitis Hypertriglyceridemia Bilateral cataracts Seasonal allergies Anemia Segmental and somatic dysfunction of lumbar region Segmental and somatic dysfunction of thoracic region Segmental and somatic dysfunction of cervical region Acute cholecystitis Obesity Hypertension Rheumatoid arthritis Home Medications ???Medication ???Instructions ???Recorded ???Last Taken ???Type carvedilol 25 mg tablet 25 mg PO BID 12/22/15 06/18/24 History finasteride 5 mg tablet 5 mg PO DAILY 12/22/15 06/17/24 History hydralazine 100 mg tablet 100 mg PO TID 12/22/15 06/18/24 History lisinopril 40 mg tablet 40 mg PO DAILY 12/22/15 06/18/24 History multivitamin 1 tab PO DAILY 08/19/17 06/17/24 History hydrocortisone 2.5 % topical cream 1 applic topical BID PRN Skin 05/25/21 Unknown History Cleansing ketoconazole 2 % shampoo 1 applic topical QODAY 05/25/21 06/16/24 History oxybutynin chloride 10 mg 10 mg PO DAILY 05/25/21 06/17/24 History tablet,extended release 24 hr cholecalciferol (vitamin D3) 25 25 mcg PO DAILY 12/10/22 06/17/24 History mcg (1,000 unit) capsule blood sugar diagnostic (NavigatorMDuch #100 ea 06/30/23 Unknown Rx Verio test strips) blood-glucose meter (NavigatorMDuch #1 ea 06/30/23 Unknown Rx Verio Reflect Meter) lancets 33 gauge ([employer]Touch Delica #100 ea 07/05/23 Unknown Rx Plus Lancet) sulfasalazine 500 mg 1,000 mg PO BID 12/15/23 06/17/24 History tablet,delayed release Trulicity 1.5 mg/0.5 mL 1.5 mg (0.5 mL) subcut QWEEK #2 mL 03/29/24 06/06/24 Rx subcutaneous pen injector (dulaglutide) atorvastatin 20 mg tablet 20 mg PO QPM #90 tabs 03/29/24 06/17/24 Rx clonidine HCl 0.3 mg tablet 0.3 mg PO TID 03/29/24 06/18/24 History hydrocortisone 10 mg tablet 10 mg PO TID #270 tabs 03/29/24 06/17/24 Rx levothyroxine 75 mcg tablet 75 mcg PO DAILY 06/14/24 06/18/24 History levothyroxine 75 mcg tablet 150 mcg PO CLEARY 06/14/24 06/17/24 History (Euthyrox) Allergy/AdvReac Type Severity Reaction Status Date / Time diltiazem (From Cardizem) Allergy Unknown PT UNSURE Verified 06/18/24 06:29 OF REACTION Family History Mother Cancer Hypertension Father Diabetes Surgical History History of pituitary surgery History of esophagogastroduodenoscopy (EGD) ( 05/29/18) S/P colonoscopy ( 05/29/18) History of esophagogastroduodenoscopy (EGD) Hx of tonsillectomy Hx of colonoscopy Hx of cholecystectomy S/P cholecystectomy Social History household members: spouse current occupational status: employed current occupation: [employer] Smoking Status: Never smoker substance use type: does not use ROS Review of Systems ROS Unobtainable: other Constitutional Constitutional: Denies fatigue, fever(s), poor appetite, weight gain or weight loss ENT HEENT: Denies mouth lesions Cardiovascular Cardiovascular: Denies abdominal bloating, abdominal edema or abdominal pain Respiratory/Chest Respiratory/Chest: Denies change in mental status, change in phlegm color, chest congestion or chest tightness Gastrointestinal Gastrointestinal: Denies belching, bloating, change in bowel habits, change in stool character, chewing difficulty, coffee ground emesis, constipation, cramping, diarrhea, dyspepsia, dysphagia, early satiety, exces (more content not included)...[facility] 01-24-2024 Telephone encounter Note* Telephone Encounter - Monika Patel RN - 01/24/2024 11:14 AM EDT Unable to reach patient by phone at this time. Left voicemail with contact information for call back. [facility]05-21-2024 Miscellaneous Notes* Telephone Encounter - Monika Patel RN - 01/24/2024 11:14 AM EDT Unable to reach patient by phone at this time. Left voicemail with contact information for call back. [facility] Telephone encounter Note * Telephone Encounter - Dolly Lucas APRN.CNP - 01/23/2024 9:50 AM EDT Per the patient was weaned from cortef, but become symptomatic with adrenal insufficiency. Goal with OSH obstetrics gynecology md is to trial the wean again. Patient declines referral to see Dr. Job Tracy. Dolly Lucas APRN.CNP [facility]05-20-2024 Miscellaneous Notes* Telephone Encounter - Dolly Lucas APRN.CNP - 01/23/2024 9:50 AM EDT Per the patient was weaned from cortef, but become symptomatic with adrenal insufficiency. Goal with OSH obstetrics gynecology md is to trial the wean again. Patient declines referral to see Dr. Job Tracy. Dolly Lucas APRN.CNP * Telephone Encounter - Dolly Lucas APRN.CNP - 01/23/2024 9:20 AM EDT Reviewed case with Dr. Weaver and he is recommending patient see Dr. Etta Tracy to see if cortefcan be weaned. Left voicemail for patient to call back. Dolly Lucas APRN.STRATEGIC ACCOUNTS MANAGER [facility] Telephone encounter Note * Telephone Encounter - Dolly Lucas APRN.MADHURI - 01/23/2024 9:20 AM EDT Reviewed case with Dr. Weaver and he is recommending patient see Dr. Etta Tracy to see if cortefcan be weaned. Left voicemail for patient to call back. Dolly Lucas APRN.STRATEGIC ACCOUNTS MANAGER [facility]05-17-2024 Telephone encounter Note* Telephone Encounter - Radha Castillo MA - 01/20/2024 8:[address] Amado thought he was no longer the doctor prescribing this medication but yes, he is the prescribing doctor. [id number] Miscellaneous Notes* Telephone Encounter - Radha Castillo MA - 01/20/2024 8:[address] Amado thought he was no longer the doctor prescribing this medication but yes, he is the prescribing doctor. RX loaded documented in this encounterSMadison [id number] History of Present illness Narrative* William Amado DO - 01/18/2024 8:00 AM EDT Images from the original note were not included. [facility] [address] [place] [address] [address] [facility] [id number] Visit type: Established Patient Reason for Visit: Follow-up (Med check) Assessment / Plan: Graeme was seen today for follow-up. Diagnoses and all orders for this visit: Essential hypertension (Primary) Comments: Stable, continue hydralazine, lisinopril, clonidine and carvedilol Rheumatoid arthritis, involving unspecified site, unspecified whether rheumatoid factor present (HCC) Hypertriglyceridemia Comments: Stable, continue Lipitor Orders: - Lipid panel; Future - Lipid panel Acquired hypothyroidism Psoriasis Type 2 diabetes mellitus without complication, without long-term current use of insulin (CMS/HCC) (HCC) Pituitary adenoma (HCC) Other orders - atorvastatin (Lipitor) 10 MG tablet; Take 1 tablet (10 mg) by mouth Nightly for 360 doses. - carvedilol (Coreg) 25 MG tablet; Take 1 tablet (25 mg) by mouth in the morning and 1 tablet (25 mg) in the evening. Take with meals. - cloNIDine (Catapres) 0.3 MG tablet; Inc to 0.3 mg tab TID - hydrALAZINE (Apresoline) 100 MG tablet; Take 1 tablet (100 mg) by mouth 3 times daily. - lisinopril 40 MG tablet; Take 1 tablet (40 mg) by mouth daily. Subjective: Patient ID: Myranda Olea is a 63 y.o. male. HPI obese hypertensive patient with inflammatory arthritis, glucose intolerance, hypertriglyceridemia, hypothyroidism, pituitary adenoma status post resection presents for hypertension management. Past consultations with urology, endocrinology, urology, and rheumatology notes reviewed Review of Systems he is feeling fair. No recent earache sore throat or cough. No chest pain or palpitations. No PND orthopnea or change in mild leg edema. No abdominal pain. Bowels are regular. Colonoscopy due this fall. Will be following up with Dr. Mcgrath for panendoscopy. No change in neurologic symptoms. Recent urology consultation noted. Slight elevated PSA will be followed appropriately in the future. Noted strong family history of prostate cancer Allergies Allergen Reactions Milk (Cow) Other reaction(s): GI Upset cough, diarrhea, scratchy throat Other reaction(s): GI Upset Diltiazem Other reaction(s): Other (See Comments) edema Other reaction(s): Unknown Milk-Related Compounds Other reaction(s): Other (See Comments) Lactose intolerant Other reaction(s): Diarrhea Other reaction(s): Diarrhea Current Outpatient Medications on File Prior to Visit Medication Sig Dispense Refill cholecalciferol (Vitamin D3) 25 MCG (1000 UT) tablet Take by mouth daily. finasteride (Proscar) 5 MG tablet Take 1 tablet (5 mg) by mouth daily. 90 tablet 1 glimepiride (Amaryl) 2 MG tablet hydrocortisone (Cortef) 10 MG tablet hydrocortisone 2.5 % cream Apply topically. ketoconazole (NIZOral) 2 % shampoo levothyroxine (Synthroid, Levoxyl) 75 MCG tablet mirabegron ER (Myrbetriq) 50 MG 24 hr tablet Multiple Vitamins-Iron (MULTI-VITAMIN/IRON PO) Take by mouth. oxybutynin XL (Ditropan-XL) 10 MG 24 hr tablet sodium chloride 0.9 % irrigation solution Irrigate as directed each nostril with 60cc of solution twice daily. Dispense one liter bottles sulfaSALAzine 500 MG EC tablet Take 1,000 mg by mouth 2 times daily. Trulicity 0.75 MG/0.5ML solution pen-injector Inject 0.75 mg under the skin 1 (one) time per week. [DISCONTINUED] atorvastatin (Lipitor) 10 MG tablet Take 1 tablet (10 mg) by mouth Nightly for 90 doses. 90 tablet 3 [DISCONTINUED] carvedilol (Coreg) 25 MG tablet Take 1 tablet (25 mg) by mouth in the morning and 1 tablet (25 mg) in the evening. Take with meals. 180 tablet 1 [DISCONTINUED] cloNIDine (Catapres) 0.3 MG tablet Inc to 0.3 mg tab TID 270 tablet 1 [DISCONTINUED] hydrALAZINE (Apresoline) 100 MG tablet Take 1 tablet (100 mg) by mouth 3 times daily. 270 tablet 1 [DISCONTINUED] lisinopril 40 MG tablet Take 1 tablet (40 mg) by mouth daily. 90 tablet 1 acetaminophen (Tylenol 8 Hour) 650 MG ER tablet Take 650 mg by mouth every 8 hours as needed for mild pain (1-3). Do not crush, chew, or split. Glucose Blood (Blood Glucose Test) strip 100 strips by Other route. Lancets (OneTouch Delica Plus [id number]) [facility] [place] strip [DISCONTINUED] apremilast (Otezla) 30 MG tablet Take 30 mg by mouth in the morning and 30 mg in theevening. [DISCONTINUED] [place] 0.65 % nasal spray [DISCONTINUED] Januvia 100 MG tablet [DISCONTINUED] loratadine (Claritin) 10 MG tablet Take 10 mg by mouth in the morning. [DISCONTINUED] potassium chloride CR (Klor-Con M20) 20 MEQ ER tablet Take 20 mEq by mouth in the morning and 20 mEq in the evening. No current facility-administered medications on file prior to visit. Patient Active Problem List Diagnosis Pituitary neoplasm Hypertriglyceridemia Pneumonia Inflammatory arthritis Hypothyroid Prediabetes Hx of colonic polyps Anemia of chronic disease Psoriatic arthritis (HCC) Lactose intolerance Eosinophilic esophagitis Family history of prostate cancer Sleep apnea Essential hypertension Seasonal allergic rhinitis Elevated prostate specific antigen less than 10 ng/ml DJD (degenerative joint disease), lumbar Family history of diabetes mellitus in father Type 2 diabetes mellitus without complication, without long-term current use of insulin ([facility]/HCC) (HCC) Social History Tobacco Use Smoking status: Never Smokeless tobacco: Never Substance Use Topics Alcohol use: No Alcohol/week: 0.0 standard drinks of alcohol Past Surgical History: Procedure Laterality Date CHOLECYSTECTOMY 2015 COLONOSCOPY 2017 small polyp - Mahesh COLONOSCOPY 2010 Dr. Cavanaugh COLONOSCOPY W/ POLYPECTOMY 06/2021 Dr. Zuniga, few polyps/divert ds- due 2023 MAXILLARY SINUSOTOMY (HISTORICAL) 2019 Dr. Lo PITUITARY TUMOR RESECTION (HISTORICAL) 02/2023 [facility] PROSTATE BIOPSY 10/2021 Dr. Norwood, Michael TONSILLECTOMY (HISTORICAL) remote UPPER GASTROINTESTINAL ENDOSCOPY 05/2018 Mahesh- neg, due 2022 UPPER GASTROINTESTINAL ENDOSCOPY N/A 2011 [facility] Family History Problem Relation Name Age of Onset Lung cancer Mother Iraida 79 adeno CA, nonsmoker, age 81 in 07/2022 High Blood Pressure Mother Iraida Lymphoma Mother Iraida lymphoma Diabetes Father Noe Prostate cancer Father Noe 55 at age 70 in 2008 Coronary artery disease Father Noe Prostate cancer Brother Tomy 52 Hypertension Brother Tomy Prostate cancer Brother Adán 55 age 60 in 03/26 mets to bone, spinal cord comp Hypertension Maternal Grandmother in 80s, COPD Maternal Grandfather [employer] lung, [place] Diabetes Paternal Grandmother age 70 Diabetes Paternal Grandfather Objective: BP 132/70 (BP Location: Left arm, Patient Position: Sitting, BP Cuff Size: Large adult) Pulse 76 Temp 36.3 C (97.3 F) (Temporal) Ht 5' 8 (1.727 m) Wt 243 lb (110 kg) SpO2 96% BMI 36.95 kg/m Physical Exam The physical exam is generally normal. Patient appears well, alert and oriented x 3, pleasant, cooperative. Vitals are as noted. No carotid bruits. Neck supple, no abnormal adenopathy, thyroid lesions or masses. Ears, nose and throat are normal without acute findings. Lungs are clear to auscultation. Heart is regular, without murmurs, gallops or ectopy. Abdomen is soft, non tender, without masses, hepatosplenomegaly, or bruits. Normal BS evident. Extremities are normal with chronic trace pretibial edema. Peripheral pulses are fair. No worrisome skin lesions. Screening neurological exam is normal without focal deficits. documented in this [facility]04-18-2024 History of Present illness Narrative* Dolly Lucas APRN.[facility] - 12/22/2023 11:00 AM EDT Images from the original note were not included. Neurological [facility] NEURO-ONCOLOGY VIRTUAL VISIT NOTE I have communicated my name and active licensure. The patient's identity and physical location wereverified at the time of this visit. Either the patient or their legal group sales representative has been informed of the risks and benefits of -- and alternatives to -- treatment through a remote evaluation andconsents to proceed with the evaluation remotely. This is a virtual visit using HIPAA compliant video platform. It required patient-provider interaction for the medical decision making as documented below. PURPOSE OF VISIT: Ongoing patient management CHIEF COMPLAINT : MRI review for pituitary adenoma MEDICAL DECISION MAKING Assessment & Plan 1. Incidental asymptomatic pituitary adenoma that showed interval growth on surveillance scans, nowpatient is s/p Endoscopic endonasal transphenoidal approach for resection of pituitary tumor (silent T-pit, Ki 3%) on 02/03/23 - MRI pituitary today appears to show decrease in size of residual enhancing tissue within the sella - Images reviewed with the patient - Follow up in one year with new MRI pit and virtual visit - Continue to follow with endocrine Dr. Monika Lovett at [place]. Discussed need for close follow up with labs given silent T-pit - Reviewed signs and symptoms that would prompt sooner evaluation - The patient has our contact information and was advised to call if new symptoms, questions or concerns arise prior to next scheduled visit. - All questions were answered. I spent a total of 20 minutes on the date of the service which included preparing to see the patient, [id number] patient care, completing clinical documentation, obtaining and/or reviewing separately obtained history, performing a medically appropriate examination and ordering medications, tests, or procedures. Dolly Lucas APRN.[facility] Certified Nurse Practitioner cc: Misha Weaver MD--[facility] Subjective HISTORY OF PRESENT ILLNESS: Myranda Olea is a 63 year old year old male who was found to have an incidental pituitary adenoma when he had a work up for chronic sinusitis. He last saw Dr. Weaver on 05/14/20 who recommend observation. INTERVAL HISTORY 11/26/20 Since he was last seen he denies any new symptoms. He had visual screening completed and reports novision loss. His cortisol level and testosterone levels were slightly abnormal. He saw Dr. Lovett from endocrinology and her recommendation was to observe. He will see her in the fall of 2020 to repeat labs. 12/09/21 Since he was last seen he has seen Dr. Lovett and had his visual field testing. He reports minor TSH changes and his thyroid medication was slightly increased. He also had an elevated PSA, but is negative for prostate cancer. Overall he is feeling well, just slightly fatigued. 12/20/22 He last saw endo 3 weeks ago. The last time he had his endo labs (only TSH) was February 2022. He denies any fatigue, vision loss, he has had intentional weight loss. He has an optho appointment scheduleJuly 2022. 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 He is seeing Dr. Causey from endocrine and wished to see local obstetrics gynecology md. Currently on cortef 20mg in qAM 10mg q2pm. He is now on trulicity given hyperglycemia from cortef. Heis feeling ok. Some days he feels fine other days fatigued. He is seeing Dr. Monika Lovett from endocrin e. SOCIAL HISTORY: Social History Tobacco Use Smoking status: Never Smokeless tobacco: Never Substance Use Topics Alcohol use: No Drug use: No PAST MEDICAL HISTORY Diagnosis Date Anemia Anemia Autoimmune disorder (HCC) HTN (hypertension) Hypothyroid Nonspecific abnormal finding in stool contents Other abnormal glucose Personal history of pneumonia (recurrent) Pure hyperglyceridemia Rheumatoid arthritis (HCC) FAMILY HISTORY Problem Relation Age of Onset Cancer Mother Hypertension Mother Coronary Artery Disease Father Prostate Cancer Father other (diverticulitis) Brother Anesthesia Problems No Family History Current Outpatient Medications Medication Sig TRULICITY 0.75 mg/0.5 mL pen injector benzonatate (TESSALON PERLES) 100 mg capsule Take 1 capsule by mouth three times a day as needed for cough. glimepiride (AMARYL) 2 mg tablet Take by mouth. mupirocin (CENTANY) 2 % ointment Use as directed twice daily. Dispense 22 gm tubes. 7 tubes = 1mos supply sodium chloride 0.9 % IRRIGATION Irrigate as directed each nostril with 60cc of solution twice daily. Dispense one liter bottles hydrocortisone (CORTEF) 5 mg tablet Take 3 tablets daily according to the steroid weaning schedule potassium chloride ER (KLOR-CON) 20 mEq tablet Take 1 tablet by mouth twice daily. (Patient not taking: Reported on 05/12/2023) hydrocortisone (CORTEF) 10 mg tablet Take 1 tablet by mouth as directed. Take 2 tabs in am and 1 tab at 2pm apremilast (OTEZLA) 30 mg tablet Take 1 tablet by mouth twice daily. PLEASE DO NOT TAKE THIS MEDICATION UNTIL CLEARED TO DO SO BY ENT AT YOUR FOLLOW UP APPOINTMENT FOR WOUND CHECK (Patient not taking: Reported on 05/12/2023) acetaminophen (TYLENOL) 500 mg tablet 2 tablets by ORAL/FEEDING TUBE route every 6 hours as needed for pain. senna-docusate (SENNA-S) 8.6-50 mg per tablet 1 tablet by ORAL/FEEDING TUBE route twice daily. (Patient not taking: Reported on 05/12/2023) sodium chloride 0.65 % nasal spray Use 2 Sprays in each nostril four times daily. (Patient not taking: Reported on 10/13/2023) hydrocortisone 2.5 % cream Apply 1 application to affected area twice daily as needed (Skin irritation). mirabegron (MYRBETRIQ) 50 mg Tb24 Take 50 mg by mouth once daily. oxybutynin ER (DITROPAN XL) 10 mg 24 hr tablet Take 10 mg by mouth once daily. cloNIDine HCl (CATAPRES) 0.2 mg tablet Take 0.2 mg by mouth three times daily. Lactobacillus acidophilus (PROBIOTIC) 10 billion cell cap Take 1 capsule by mouth once daily. (Patient not taking: Reported on 10/13/2023) loratadine (CLARITIN) 10 mg tablet Take 10 mg by mouth once daily. finasteride 5 mg tablet Take 5 mg by mouth once daily. hydrALAZINE 100 mg tablet Take 100 mg by mouth three times daily. carvedilol 25 mg tablet Take 25 mg by mouth twice daily with meals. Levothyroxine 50 mcg cap Take 1 capsule by mouth once daily. lisinopril 40 mg tablet Take 40 mg by mouth once daily. No current facility-administered medications for this visit. REVIEW OF SYSTEMS : Neurological : No complaint of headache No complaint of tinnitus No complaint of decreased hearing No complaint of diplopia No complaints of blurred vision. No complaint of arm/leg numbness No problem with limb coordination No complaint of syncope No complaints of seizures. No complaints of memory changes or disorientation. General : Constitutional: No recent fever or weight loss. Eyes: No history of glaucoma or cataracts ENMT: No recent ear infection, nasal congestion, mouth sores or sore throat. CV: No history of chest pain, palpitations or leg swelling, + HTN Respiratory: No history of SOB, wheezing or recent cough.+ JULIO Gastrointestinal: No history of nausea, vomiting, dysphagia or abdominal pain. Genitourinary: No history of hematuria or dysuria. Musculoskeletal: No complaint of arthritis, unstable gait or arm/leg weakness, + RA Psychiatric: No history of hallucinations, depression, or anxiety Endo: + hypothyroidism Objective VIDEO EXAM : ( If completed, performed via video enable technology) NEUROLOGICAL EXAM: Higher integrative functions: Oriented to person, place & time. Memory: Good recent and remote. Attention Span and Concentration: Good. Language: Accurate naming of objects. Good comprehension. Fund of Knowledge: Good. IMAGING STUDIES: MRI Pituitary WO/W IVCON 12/20/23 MRI Pituitary Report MRI PITUITARY WO/W IVCON Exam End: 12/20/2023 10:12 AM (Final result) Narrative: * * *Final Report* * * DATE OF EXAM: Dec 20 2023 10:11AM [facility] 0314 - MRI PITUITARY WO/W IVCON / PROCEDURE REASON: Pituitary adenoma (HCC) * * * * Physician Interpretation * * * * EXAMINATION: MRI PITUITARY WO/W IVCON CLINICAL HISTORY: Pituitary adenoma TECHNIQUE: High resolution sagittal and coronal T1, coronal T2, and gadolinium enhanced, fat-suppressed sagittal and coronal T1-weighted images of the pituitary region. Contrast: 10 mL Dotarem IV COMPARISON: MRI 03/16/2023 RESULT: Postop Changes: Postsurgical changes of transsphenoidal hypophysectomy. Pituitary gland: Postsurgical changes of the pituitary gland with decreased volume of enhancing soft tissue in the sella with similar to slightly interval increased enhancement and thickening of the pituitary stalk. No mass effect on adjacent structures. Suprasellar Region: No evidence of a suprasellar mass. The optic apparatus is normal in appearance. Cavernous Sinuses: The cavernous sinuses are normal in appearance. A normal flow void is noted in the carotid siphons suggesting patency by spin echo criteria. Brain Parenchyma: The overlying hypothalamus is normal in appearance. The visualized parenchyma is otherwise normal in signal intensity and morphology. Skull Base: No evidence of a marrow replacement process in the underlying skull base. Additional comments: Mucosal thickening is present throughout the sphenoid sinuses. Retention cysts and mucosal thickening are also present in the bilateral maxillary sinuses. Impression: IMPRESSION: Decreased volume of residual enhancing tissue within the sella following transsphenoidal resection of adenoma. Similar to slightly interval increased enhancement and thickening of the pituitary stalk. Recommend continued attention on follow-up imaging. Contractor General Building: [facility] Transcribe Date/Time: Dec 20 2023 10:14A Dictated by : MART LAU MD This examination was interpreted and the report reviewed and electronically signed by: MART LAU MD on Dec 20 2023 10:19AM EST documented in this [facility]04-[facility] History of Present illness Narrative* Jessica Arrington, RT(R) - 12/20/2023 10:00 AM EDT Radiology Service Progress Note DATE OF SERVICE: December 20, 2023 TIME: 10:03 AM PATIENT IDENTITY VERIFICATION COMPLETED USING TWO (2) STANDARD IDENTIFIERS: Name and Date of confirmed by patient verbally. FALL SCREENING: Has the patient had 2 falls in the last year or 1 fall with injury or currently using an Ambulatory Assistive Device (Walker, Cane, Wheelchair, Crutches, etc.)? No PATIENT GENDER DATA: Male PATIENT RELEVANT IMPLANT DATA REVIEWED: Yes PATIENT PRESENTS WITH AN IMPLANTABLE OR ATTACHED BUYER BROKER: No ALLERGIES: Reviewed and unchanged CONTRAST ALLERGY: NO. EXAM: MRI - CONTRAST TYPE: GROUP II PERIPHERAL IV DATA: Ambulatory: A peripheral IV was started in the Right antecubital site with a Angio cath: 22 gauge. RADIOLOGY DEPARTMENT: MR; Exam(s) Completed: Head: Pituitary SIGNATURE: RT Thea(R) PATIENT NAME: Myranda Olea DATE: December 20, 2023 TIME: 10:03 AM documented in this [facility]02-[facility]-2024 History of Present illness Narrative* Chaparro Kramer PA - 10/13/2023 4:05 PM EST This note was created using Salsa Bear Studiosriter. Subjective Myranda Olea is a 63 year old male. HPI 63-year-old male presents for cough, congestion, sore throat, headache starting last night. Patient states he started getting cough and chest congestion last night. He states he has some shortness of breath with coughing. He has had a sore throat and headache. His tested positive for influenza A this week. Patient did get the flu shot. He has a low-grade fever here. He has had some achiness as well. No abdominal pain, vomiting, diarrhea. Still able to eat and drink. PAST MEDICAL HISTORY Diagnosis Date Anemia Anemia Autoimmune disorder (HCC) HTN (hypertension) Hypothyroid Nonspecific abnormal finding in stool contents Other abnormal glucose Personal history of pneumonia (recurrent) Pure hyperglyceridemia Rheumatoid arthritis (HCC) PAST SURGICAL HISTORY Procedure Laterality Date CHOLEYCYSTOGRAM,GALL BLADDER 2017 COLONOSCOPY 04/21/2011 Normal. ESOPHAGOGASTRODUODENOSCOPY TRANSORAL DIAGNOSTIC 06/09/2012 EGD TONSILLECTOMY HX ALLERGIES Milk MEDICATIONS TRULICITY 0.75 mg/0.5 mL pen injector glimepiride (AMARYL) 2 mg tablet Take by mouth. mupirocin (CENTANY) 2 % ointment Use as directed twice daily. Dispense 22 gm tubes. 7 tubes = 1mos supply sodium chloride 0.9 % IRRIGATION Irrigate as directed each nostril with 60cc of solution twice daily. Dispense one liter bottles hydrocortisone (CORTEF) 5 mg tablet Take 3 tablets daily according to the steroid weaning schedule hydrocortisone (CORTEF) 10 mg tablet Take 1 tablet by mouth as directed. Take 2 tabs in am and 1 tab at 2pm acetaminophen (TYLENOL) 500 mg tablet 2 tablets by ORAL/FEEDING TUBE route every 6 hours as needed for pain. mirabegron (MYRBETRIQ) 50 mg Tb24 Take 50 mg by mouth once daily. oxybutynin ER (DITROPAN XL) 10 mg 24 hr tablet Take 10 mg by mouth once daily. cloNIDine HCl (CATAPRES) 0.2 mg tablet Take 0.2 mg by mouth three times daily. loratadine (CLARITIN) 10 mg tablet Take 10 mg by mouth once daily. finasteride 5 mg tablet Take 5 mg by mouth once daily. hydrALAZINE 100 mg tablet Take 100 mg by mouth three times daily. carvedilol 25 mg tablet Take 25 mg by mouth twice daily with meals. Levothyroxine 50 mcg cap Take 1 capsule by mouth once daily. lisinopril 40 mg tablet Take 40 mg by mouth once daily. potassium chloride ER (KLOR-CON) 20 mEq tablet Take 1 tablet by mouth twice daily. (Patient not taking: Reported on 05/12/2023) apremilast (OTEZLA) 30 mg tablet Take 1 tablet by mouth twice daily. PLEASE DO NOT TAKE THIS MEDICATION UNTIL CLEARED TO DO SO BY ENT AT YOUR FOLLOW UP APPOINTMENT FOR WOUND CHECK (Patient not taking: Reported on 05/12/2023) senna-docusate (SENNA-S) 8.6-50 mg per tablet 1 tablet by ORAL/FEEDING TUBE route twice daily. (Patient not taking: Reported on 05/12/2023) sodium chloride 0.65 % nasal spray Use 2 Sprays in each nostril four times daily. (Patient not taking: Reported on 10/13/2023) hydrocortisone 2.5 % cream Apply 1 application to affected area twice daily as needed (Skin irritation). Lactobacillus acidophilus (PROBIOTIC) 10 billion cell cap Take 1 capsule by mouth once daily. (Patient not taking: Reported on 10/13/2023) FAMILY HISTORY Problem Relation Age of Onset Cancer Mother Hypertension Mother Coronary Artery Disease Father Prostate Cancer Father other (diverticulitis) Brother Anesthesia Problems No Family History Social History Tobacco Use Smoking status: Never Smokeless tobacco: Never Substance Use Topics Alcohol use: No Drug use: No Review of Systems Constitutional: Positive for fever. Negative for chills. HENT: Positive for congestion and sore throat. Respiratory: Positive for cough and shortness of breath. Gastrointestinal: Negative for diarrhea and vomiting. Musculoskeletal: Positive for myalgias. Neurological: Positive for headaches. Objective BP 153/90 Pulse 78 Temp 37.2 C (99 F) Resp 20 Wt 109.3 kg (241 lb) SpO2 97% BMI 36.64 kg/m Physical Exam Vitals and nursing note reviewed. Constitutional: General: He is not in acute distress. Appearance: Normal appearance. He is not toxic-appearing. HENT: Right Ear: Tympanic membrane and ear canal normal. Left Ear: Tympanic membrane and ear canal normal. Nose: Congestion present. Mouth/Throat: Mouth: Mucous membranes are moist. Pharynx: No oropharyngeal exudate or posterior oropharyngeal erythema. Eyes: Conjunctiva/sclera: Conjunctivae normal. Cardiovascular: Rate and Rhythm: Normal rate and regular rhythm. Pulmonary: Effort: Pulmonary effort is normal. Breath sounds: Normal breath sounds. No wheezing, rhonchi or rales. Skin: General: Skin is warm and dry. Neurological: Mental Status: He is alert. Assessment and Plan ASSESSMENT/PLAN: 1. Flu-like symptoms - ICD9: 780.99, ICD10: R68.89 (primary diagnosis) - INFLUENZA A&B MOLECULAR (POC)- NEGATIVE - COVID & INFLUENZA A/B & RSV NAAT, ROUTINE -Rx for Tessalon Perles to help with cough. -Patient is in window for Tamiflu until evening of 10/14. His rapid flu test was negative. However, if his PCR test come back positive, may treat with Tamiflu. -Patient is a candidate for antiviral if COVID-positive. Labs from 02/2023 revealed normal kidney function. Creatinine clearance calculated at 100. 2. Exposure to influenza - ICD9: V01.79, ICD10: Z20.828 - INFLUENZA A&B MOLECULAR (POC)- NEGATIVE 3. Essential hypertension - ICD9: 401.9, ICD10: I10 -Blood pressure elevated at 153/90. Appears to be elevated his past few visits. He is on several blood pressure medications. Advised patient to follow-up with PCP and keep blood pressure log at home. Diagnosis and treatment plan were discussed and questions were answered to the patient's satisfaction. Pt acknowledged understanding of concepts and follow up plan. Specific signs and symptoms that would indicate the need for higher level of care were discussed in detail warranting prompt ER evaluation. LINDY Hi [facility] Miscellaneous Notes* Telephone Encounter - Lidia Heredia MA - 08/09/2023 10:16 AM EST Last OV:07/20/23 Scheduled:01/18/24 documented in this [facility]12-05-2023 Telephone encounter Note* Telephone Encounter - Lidia Heredia MA - 08/09/2023 10:16 AM EST Last OV:07/20/23 [id number] of Present illness Narrative* William Amado DO - 07/20/2023 8:00 AM EST Images from the original note were not included. [facility] [address] [place] [address] [address] [facility] [id number] Visit type: Established Patient Reason for Visit: Follow-up (6 month med check) Assessment / Plan: Graeme was seen today for follow-up. Diagnoses and all orders for this visit: Essential hypertension (Primary) Comments: Uncontrolled, increase clonidine 0.3 3 times daily. Continue a Apresoline and lisinopril BP check 4weeks Inflammatory arthritis Type 2 diabetes mellitus without complication, without long-term current use of insulin ([facility]/HCC) (HCC) Comments: Stable, continue Amaryl Pituitary neoplasm Psoriatic arthritis (HCC) Hypothyroidism, unspecified type Comments: Stable, continue Levothyroid Hypertriglyceridemia Comments: Stable, continue Lipitor Other orders - carvedilol (Coreg) 25 MG tablet; Take 1 tablet (25 mg) by mouth in the morning and 1 tablet (25 mg) in the evening. Take with meals. - cloNIDine (Catapres) 0.3 MG tablet; Inc to 0.3 mg tab TID - hydrALAZINE (Apresoline) 100 MG tablet; Take 1 tablet (100 mg) by mouth 3 times daily. - lisinopril 40 MG tablet; Take 1 tablet (40 mg) by mouth daily. - finasteride (Proscar) 5 MG tablet; Take 1 tablet (5 mg) by mouth daily. - atorvastatin (Lipitor) 10 MG tablet; Take 1 tablet (10 mg) by mouth Nightly for 90 doses. Subjective: Patient ID: Myranda Olea is a 62 y.o. male. HPI hypertensive diabetic status post pituitary adenoma surgery presents for blood pressure management. Also on meds for overactive bladder and psoriatic arthritis. Recent lab, endocrine and rheumatologic notes reviewed. Overall patient feeling well. Blood pressure slightly elevated today Review of Systems A1c not optimal. Has been on some steroids postop. Overall feeling well without headaches chest pain cough phlegm or fever. No heartburn or dysphagia. No abdominal pain. Bowels are regular. History of elevated PSA and biopsy of his prostate due for recheck in 3 months. Due for colonoscopy next June Allergies Allergen Reactions Milk (Cow) Other reaction(s): GI Upset cough, diarrhea, scratchy throat Other reaction(s): GI Upset Diltiazem Other reaction(s): Other (See Comments) edema Other reaction(s): Unknown Milk-Related Compounds Other reaction(s): Other (See Comments) Lactose intolerant Other reaction(s): Diarrhea Other reaction(s): Diarrhea Current Outpatient Medications on File Prior to Visit Medication Sig Dispense Refill acetaminophen (Tylenol 8 Hour) 650 MG ER tablet Take 650 mg by mouth every 8 hours as needed for mild pain (1-3). Do not crush, chew, or split. apremilast (Otezla) 30 MG tablet Take 30 mg by mouth in the morning and 30 mg in the evening. Thurmont 0.65 % nasal spray cholecalciferol (Vitamin D3) 25 MCG (1000 UT) tablet Take by mouth daily. glimepiride (Amaryl) 2 MG tablet Glucose Blood (Blood Glucose Test) strip 100 strips by Other route. hydrocortisone (Cortef) 10 MG tablet hydrocortisone 2.5 % cream Apply topically. Januvia 100 MG tablet ketoconazole (NIZOral) 2 % shampoo Lancets (OneTouch Delica Plus [id number]) misc levothyroxine (Synthroid, Levoxyl) 75 MCG tablet loratadine (Claritin) 10 MG tablet Take 10 mg by mouth in the morning. mirabegron ER (Myrbetriq) 50 MG 24 hr tablet Multiple Vitamins-Iron (MULTI-VITAMIN/IRON PO) Take by mouth. OneTouch Verio test strip oxybutynin XL (Ditropan-XL) 10 MG 24 hr tablet potassium chloride CR (Klor-Con M20) 20 MEQ ER tablet Take 20 mEq by mouth in the morning and 20 mEq in the evening. sodium chloride 0.9 % irrigation solution Irrigate as directed each nostril with 60cc of solution twice daily. Dispense one liter bottles [DISCONTINUED] atorvastatin (Lipitor) 20 MG tablet Take 1 tablet (20 mg) by mouth Nightly. 90 tablet 1 [DISCONTINUED] carvedilol (Coreg) 25 MG tablet Take 1 tablet (25 mg) by mouth in the morning and 1 tablet (25 mg) in the evening. Take with meals. 180 tablet 1 [DISCONTINUED] cloNIDine (Catapres) 0.2 MG tablet Inc to 0.2 mg tab TID Strength: 0.2 mg 270 tablet1 [DISCONTINUED] finasteride (Proscar) 5 MG tablet Take 1 tablet (5 mg) by mouth daily. 90 tablet 1 [DISCONTINUED] hydrALAZINE (Apresoline) 100 MG tablet Take 1 tablet (100 mg) by mouth 3 times daily. 270 tablet 1 [DISCONTINUED] lisinopril 40 MG tablet Take 1 tablet (40 mg) by mouth daily. 90 tablet 1 [DISCONTINUED] Probiotic, Lactobacillus, capsule Take by mouth daily. No current facility-administered medications on file prior to visit. Patient Active Problem List Diagnosis Pituitary neoplasm Hypertriglyceridemia Pneumonia Inflammatory arthritis Hypothyroid Prediabetes Hx of colonic polyps Anemia of chronic disease Psoriatic arthritis (HCC) Lactose intolerance Eosinophilic esophagitis Family history of prostate cancer Sleep apnea Essential hypertension Seasonal allergic rhinitis Elevated prostate specific antigen less than 10 ng/ml DJD (degenerative joint disease), lumbar Family history of diabetes mellitus in father Type 2 diabetes mellitus without complication, without long-term current use of insulin (CMS/HCC) (HCC) Social History Tobacco Use Smoking status: Never Smokeless tobacco: Never Substance Use Topics Alcohol use: No Alcohol/week: 0.0 standard drinks of alcohol Past Surgical History: Procedure Laterality Date CHOLECYSTECTOMY 2015 COLONOSCOPY 05/2018 small polyp - Mahesh COLONOSCOPY 2010 Dr. Cavanaugh COLONOSCOPY W/ POLYPECTOMY 06/2021 Dr. Zuniga, few polyps/divert ds- due 2023 MAXILLARY SINUSOTOMY (HISTORICAL) 06/2020 Dr. Lo PITUITARY TUMOR RESECTION (HISTORICAL) 02/2023 [facility] PROSTATE BIOPSY 10/2021 Dr. Norwood, Michael TONSILLECTOMY (HISTORICAL) remote UPPER GASTROINTESTINAL ENDOSCOPY 05/2018 Mahesh- neg, due 2022 UPPER GASTROINTESTINAL ENDOSCOPY N/A 2011 [facility] Family History Problem Relation Name Age of Onset Lung cancer Mother Iraida 79 adeno CA, nonsmoker, age 81 in 07/2022 High Blood Pressure Mother Iraida Lymphoma Mother Iraida lymphoma Diabetes Father Noe Prostate cancer Father Noe 55 at age 70 in 2008 Coronary artery disease Father Noe Prostate cancer Brother Tomy 52 Hypertension Brother Tomy Prostate cancer Brother Adán 55 age 60 in 03/26 mets to bone, spinal cord comp Hypertension Maternal Grandmother in 80s, COPD Maternal Grandfather [employer], [place] Diabetes Paternal Grandmother age 70 Diabetes Paternal Grandfather Objective: BP 139/89 Pulse 75 Temp 36.7 C (98.1 F) (Temporal) Ht 5' 8 (1.727 m) Wt 237 lb (108 kg) SpO2 99% BMI 36.04 kg/m Physical Exam The physical exam is generally normal. Patient appears well, alert and oriented x 3, pleasant, cooperative. Vitals are as noted. No carotid bruits. Neck supple, no abnormal adenopathy, thyroid lesions or masses. Ears, nose and throat are normal without acute findings. Lungs are clear to auscultation. Heart is regular, without murmurs, gallops or ectopy. Abdomen is soft, non tender, without masses, hepatosplenomegaly, or bruits. Normal BS evident. Extremities are normal without edema. Peripheralpulses are fair. No worrisome skin lesions. Screening neurological exam is normal without focal deficits. documented in this [facility]11-15-2023 Instructions* Patient Instructions* William Amado DO - 07/20/2023 8:00 AM EST Blood pressure check with staff in 4 to 5 weeks documented in this [facility]11-04-2023 History of Present illness Narrative* Jodi Richardson APRN.STRATEGIC ACCOUNTS MANAGER - 07/09/2023 1:54 PM EDT This note was created using [employer]. Subjective Myranda Olea is a 62 year old male. 62 year old male with PMH HTN, sleep apnea, thyroid, RA and pre diabetic presents for illness. Acute onset 3 weeks ago +frontal sinus pressure +maxillary sinus pressure +post nasal drainage +cough +headache +sore throat Of note he had recent surgery February 03. He has been on steroids since then He attempted to be weaned off on . The history is provided by the patient. No chinese language professor was used. Cough This is a new problem. The current episode started more than 1 week ago. The problem occurs constantly. The problem has not changed since onset.The cough is Productive of sputum. The maximum temperature recorded prior to his arrival was 100 to 100.9 F. Associated symptoms include chills, ear congestion, ear pain, headaches, rhinorrhea and sore throat. Pertinent negatives include no chest pain, nosweats, no weight loss, no myalgias, no shortness of breath, no wheezing and no eye redness. He hastried decongestants for the symptoms. The treatment provided no relief. He is not a smoker. His past medical history does not include bronchitis, pneumonia, bronchiectasis, COPD, emphysema or asthma. PAST MEDICAL HISTORY Diagnosis Date Anemia Anemia Autoimmune disorder (HCC) HTN (hypertension) Hypothyroid Nonspecific abnormal finding in stool contents Other abnormal glucose Personal history of pneumonia (recurrent) Pure hyperglyceridemia Rheumatoid arthritis (HCC) PAST SURGICAL HISTORY Procedure Laterality Date CHOLEYCYSTOGRAM,GALL BLADDER 2017 COLONOSCOPY 04/21/2011 Normal. ESOPHAGOGASTRODUODENOSCOPY TRANSORAL DIAGNOSTIC 06/09/2012 EGD TONSILLECTOMY HX ALLERGIES Milk MEDICATIONS glimepiride (AMARYL) 2 mg tablet Take by mouth. JANUVIA 100 mg tablet mupirocin (CENTANY) 2 % ointment Use as directed twice daily. Dispense 22 gm tubes. 7 tubes = 1mos supply sodium chloride 0.9 % IRRIGATION Irrigate as directed each nostril with 60cc of solution twice daily. Dispense one liter bottles hydrocortisone (CORTEF) 5 mg tablet Take 3 tablets daily according to the steroid weaning schedule hydrocortisone (CORTEF) 10 mg tablet Take 1 tablet by mouth as directed. Take 2 tabs in am and 1 tab at 2pm acetaminophen (TYLENOL) 500 mg tablet 2 tablets by ORAL/FEEDING TUBE route every 6 hours as needed for pain. sodium chloride 0.65 % nasal spray Use 2 Sprays in each nostril four times daily. hydrocortisone 2.5 % cream Apply 1 application to affected area twice daily as needed (Skin irritation). mirabegron (MYRBETRIQ) 50 mg Tb24 Take 50 mg by mouth once daily. oxybutynin ER (DITROPAN XL) 10 mg 24 hr tablet Take 10 mg by mouth once daily. cloNIDine HCl (CATAPRES) 0.2 mg tablet Take 0.2 mg by mouth three times daily. Lactobacillus acidophilus (PROBIOTIC) 10 billion cell cap Take 1 capsule by mouth once daily. loratadine (CLARITIN) 10 mg tablet Take 10 mg by mouth once daily. finasteride 5 mg tablet Take 5 mg by mouth once daily. hydrALAZINE 100 mg tablet Take 100 mg by mouth three times daily. carvedilol 25 mg tablet Take 25 mg by mouth twice daily with meals. Levothyroxine 50 mcg cap Take 1 capsule by mouth once daily. lisinopril 40 mg tablet Take 40 mg by mouth once daily. amoxicillin-clavulanate potassium (AUGMENTIN) 875-125 mg per tablet Take 1 tablet by mouth two times a day for 10 days. potassium chloride ER (KLOR-CON) 20 mEq tablet Take 1 tablet by mouth twice daily. (Patient not taking: Reported on 05/12/2023) apremilast (OTEZLA) 30 mg tablet Take 1 tablet by mouth twice daily. PLEASE DO NOT TAKE THIS MEDICATION UNTIL CLEARED TO DO SO BY ENT AT YOUR FOLLOW UP APPOINTMENT FOR WOUND CHECK (Patient not taking: Reported on 05/12/2023) senna-docusate (SENNA-S) 8.6-50 mg per tablet 1 tablet by ORAL/FEEDING TUBE route twice daily. (Patient not taking: Reported on 05/12/2023) FAMILY HISTORY Problem Relation Age of Onset Cancer Mother Hypertension Mother Coronary Artery Disease Father Prostate Cancer Father other (diverticulitis) Brother Anesthesia Problems No Family History Social History Tobacco Use Smoking status: Never Smokeless tobacco: Never Substance Use Topics Alcohol use: No Drug use: No Review of Systems Constitutional: Positive for chills. Negative for weight loss. HENT: Positive for congestion, ear pain, rhinorrhea, sinus pressure, sinus pain and sore throat. Eyes: Negative for pain, discharge, redness and itching. Respiratory: Positive for cough. Negative for shortness of breath and wheezing. Cardiovascular: Negative for chest pain. Gastrointestinal: Negative for abdominal pain, constipation, diarrhea and vomiting. Musculoskeletal: Negative for arthralgias, back pain, gait problem and myalgias. Skin: Negative for color change, pallor, rash and wound. Allergic/Immunologic: Positive for food allergies. Negative for environmental allergies and immunocompromised state. Neurological: Positive for headaches. Negative for dizziness and facial asymmetry. Hematological: Negative for adenopathy. Does not bruise/bleed easily. Psychiatric/Behavioral: Negative for agitation and behavioral problems. Objective BP 144/82 Pulse 83 Temp 37.3 C (99.1 F) (Tympanic) Resp 16 Wt 108.2 kg (238 lb 9.6 oz) SpO2 96% BMI 36.28 kg/m Physical Exam Vitals and nursing note reviewed. Constitutional: General: He is not in acute distress. Appearance: Normal appearance. He is not ill-appearing, toxic-appearing or diaphoretic. HENT: Head: Normocephalic and atraumatic. Right Ear: External ear normal. Left Ear: External ear normal. Ears: Comments: +frontal sinus pressure +maxillary sinus pressure Nose: Nose normal. No congestion or rhinorrhea. Mouth/Throat: Mouth: Mucous membranes are moist. Pharynx: Oropharynx is clear. Posterior oropharyngeal erythema present. No oropharyngeal exudate. Eyes: General: Right eye: No discharge. Left eye: No discharge. Extraocular Movements: Extraocular movements intact. Conjunctiva/sclera: Conjunctivae normal. Pupils: Pupils are equal, round, and reactive to light. Cardiovascular: Rate and Rhythm: Normal rate and regular rhythm. Pulses: Normal pulses. Heart sounds: Normal heart sounds. No murmur heard. No friction rub. No gallop. Pulmonary: Effort: Pulmonary effort is normal. No respiratory distress. Breath sounds: Normal breath sounds. No stridor. No wheezing, rhonchi or rales. Chest: Chest wall: No tenderness. Abdominal: General: Abdomen is flat. There is no distension. Palpations: Abdomen is soft. There is no mass. Tenderness: There is no abdominal tenderness. There is no guarding or rebound. Hernia: No hernia is present. Musculoskeletal: General: No swelling, tenderness, deformity or signs of injury. Normal range of motion. Cervical back: Normal range of motion and neck supple. No rigidity or tenderness. Right lower leg: No edema. Left lower leg: No edema. Lymphadenopathy: Cervical: Cervical adenopathy present. Skin: General: Skin is warm and dry. Capillary Refill: Capillary refill takes less than 2 seconds. Coloration: Skin is not jaundiced or pale. Findings: No bruising, lesion or rash. Neurological: General: No focal deficit present. Mental Status: He is alert and oriented to person, place, and time. Cranial Nerves: No cranial nerve deficit. Sensory: No sensory deficit. Motor: No weakness. Coordination: Coordination normal. Gait: Gait normal. Deep Tendon Reflexes: Reflexes normal. Psychiatric: Mood and Affect: Mood normal. Behavior: Behavior normal. Thought Content: Thought content normal. Assessment and Plan ASSESSMENT/PLAN: 1. Rhinosinusitis - ICD9: 473.9, ICD10: J32.9 X 3 weeks - Will begin treatment with as per antibiotic as written, see orders - The patient should also be given OTC cough and cold meds as needed, warm salt water gargles, throat lozenges and/or OTC throat spray as needed, and nasal saline gtts and suction prn for the first 5-7 days of treatment. - Supportive care with plenty of fluids, rest, and analgesia prn. - Follow up in 3-5 days if symptoms persist or worsen. Jodi Richardson, MECHANIC GENERAL OPERATIONAL TEST.STRATEGIC ACCOUNTS MANAGER documented [facility] this [facility] History of Present illness Narrative* Alayna Causey MD - 04/14/2023 9:09 AM EDT Endocrinology/Initial Pituitary Assessment Note: Patient is being evaluated today via a Virtual Visit using a HIPPA compliant platform, zoom via [employer]. It required patient-provider interaction for the medical decision making as documented below. Patient consented to treatment I have communicated my name and active licensure. The patient's identity and physical location wereverified at the time of this visit. Either the patient or their legal group sales representative has been informed of the risks and benefits of -- and alternatives to -- treatment through a remote evaluation andconsents to proceed with the evaluation remotely. ASSESSMENT/PLAN: 62-year-old male here for evaluation of his pituitary hormone function after having had endoscopic transsphenoidal resection of pituitary tumor performed on 02/03/2023 for a macroadenoma that was increasing in size. I saw him last month and we have been reducing his steroids. 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 This may be considered more aggressive than nonfunctional adenomas, as it is hypothesized that the lack of hypercortisolism or even presence of hypocortisolism favorizes the exaggerated growth of tumoral corticotrophs. We will monitor closely. Diagnoses for today's visit: (Z86.018) History of pituitary adenoma (primary encounter diagnosis) (Z98.890) History of pituitary surgery (R79.89) Low testosterone (E29.1) Hypogonadism in male (E03.9) Acquired hypothyroidism (E23.7) Pituitary disorder (HCC) (E89.89) Oth postproc endocrine and metabolic comp and disorders (Z09) Follow-up exam PLAN: Repeat MRI in 1 postop Steroid weaning schedule: Continue Cortef 10 mg in the morning Reduce Cortef from 10 mg to 5 mg in the afternoon After 2 weeks Continue Cortef 10 mg in the morning STOP the 1 p.m. dose of Cortef -Will now be on only Cortef 10 mg in the morning At this point, please get labs done Get am ACTH, cortisol The morning of the test DO NOT take cortef. Get the labs done first and then it is okay to take the Cortef Follow-up with me in 4 weeks at which point we will review these labs. The pituitary panel will also again be rechecked once off all steroids. All the patient`s questions were answered. The patient expressed understanding of all the information relayed and has agreed to this plan. I spent a total of 30 minutes on the date of the service which included preparing to see the patient, virtual patient care, completing clinical documentation, obtaining and/or reviewing separately obtained history, performing a medically appropriate examination, counseling and educating the patient/family/caregiver, ordering medications, tests, or procedures, communicating with other HCPs (not separately reported), independently interpreting results (not separately reported), communicating results to the patient/family/caregiver and care coordination (not separately reported). Patient would like to follow-up with his local obstetrics gynecology md so I will CC this note to her : CC to [facility] Monika Lovett SIGNATURE: Alayna Causey MD CC: History of pituitary adenoma History of pituitary surgery Hypothyroidism Hypogonadism Low testosterone Referred By: Dolly Lucas APRN, CNP My final recommendations will be communicated back to the requesting physician by way of shared Medical record or letter to requesting physician via US mail. History of Present Illness: Mr. Myranda Olea is a 62 year old male coming today for evaluationof his pituitary gland 62-year-old male here for evaluation of his pituitary hormone function after having had endoscopic transsphenoidal resection of pituitary tumor performed on 02/03/2023. He has a history of a macroadenoma that was increasing in size, and hence the decision was made for resection. Postop, there was no evidence of DI and he was discharged on 02/05/2023 in stable condition. Surgical pathology showed anterior pituitary tissue with loss of acinar architecture and immunohistochemical stains showed a few scattered positive cells for SF1 and also T Pit Positive with a Ki-67 index of 3% I last saw him on 03/12/2023 All documentation from previous visit of 03/12/2023 was copied and pasted, documentation has been reviewed and edited as necessary for today's visit. He also has a history of pre-existing presumed primary hypothyroidism that was treated with Synthroid 50 mcg daily. 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 Patient Also described the following: Headaches:Yes, occasionally about 2 x per week, severity 3/10, lasts a 30-60 mins, relieved by tylenol, visual defects:No, increased thirst or urination:No,Nocturia: Yes, 1-2x discharge from breast:No, painful breast: No, Breast swelling:No, increased head/hand or shoe size:No Darkening of skin/gums:No, salt craving:No, skin stretch call:No, easy bruising:No, excess hair growth over face/chin/chest/or abdomen:No,difficulty raising arms overhead, difficulty getting up froma seated position:No Past Medical History: PAST MEDICAL HISTORY Diagnosis Date Anemia Anemia Autoimmune disorder (HCC) HTN (hypertension) Hypothyroid Nonspecific abnormal finding in stool contents Other abnormal glucose Personal history of pneumonia (recurrent) Pure hyperglyceridemia Rheumatoid arthritis (HCC) Surgical History: PAST SURGICAL HISTORY Procedure Laterality Date CHOLEYCYSTOGRAM,GALL BLADDER 2017 COLONOSCOPY 04/21/2011 Normal. ESOPHAGOGASTRODUODENOSCOPY TRANSORAL DIAGNOSTIC 06/09/2012 EGD TONSILLECTOMY HX Family Medical History: FAMILY HISTORY Problem Relation Age of Onset Cancer Mother Hypertension Mother Coronary Artery Disease Father Prostate Cancer Father other (diverticulitis) Brother Anesthesia Problems No Family History Social History: Social History Tobacco Use Smoking status: Never Smokeless tobacco: Never Substance Use Topics Alcohol use: No Drug use: No Allergies: This ALLERGIES Allergen Reactions Milk GI Upset cough, diarrhea, scratchy throat Current medications: Current Outpatient Medications Medication Sig mupirocin (CENTANY) 2 % ointment Use as directed twice daily. Dispense 22 gm tubes. 7 tubes = 1mos supply sodium chloride 0.9 % IRRIGATION Irrigate as directed each nostril with 60cc of solution twice daily. Dispense one liter bottles hydrocortisone (CORTEF) 5 mg tablet Take 3 tablets daily according to the steroid weaning schedule potassium chloride ER (KLOR-CON) 20 mEq tablet Take 1 tablet by mouth twice daily. hydrocortisone (CORTEF) 10 mg tablet Take 1 tablet by mouth as directed. Take 2 tabs in am and 1 tab at 2pm apremilast (OTEZLA) 30 mg tablet Take 1 tablet by mouth twice daily. PLEASE DO NOT TAKE THIS MEDICATION UNTIL CLEARED TO DO SO BY ENT AT YOUR FOLLOW UP APPOINTMENT FOR WOUND CHECK acetaminophen (TYLENOL) 500 mg tablet 2 tablets by ORAL/FEEDING TUBE route every 6 hours as needed for pain. senna-docusate (SENNA-S) 8.6-50 mg per tablet 1 tablet by ORAL/FEEDING TUBE route twice daily. sodium chloride 0.65 % nasal spray Use 2 Sprays in each nostril four times daily. hydrocortisone 2.5 % cream Apply 1 application to affected area twice daily as needed (Skin irritation). mirabegron (MYRBETRIQ) 50 mg Tb24 Take 50 mg by mouth once daily. oxybutynin ER (DITROPAN XL) 10 mg 24 hr tablet Take 10 mg by mouth once daily. cloNIDine HCl (CATAPRES) 0.2 mg tablet Take 0.2 mg by mouth three times daily. Lactobacillus acidophilus (PROBIOTIC) 10 billion cell cap Take 1 capsule by mouth once daily. loratadine (CLARITIN) 10 mg tablet Take 10 mg by mouth once daily. finasteride 5 mg tablet Take 5 mg by mouth once daily. hydrALAZINE 100 mg tablet Take 100 mg by mouth three times daily. carvedilol 25 mg tablet Take 25 mg by mouth twice daily with meals. Levothyroxine 50 mcg cap Take 1 capsule by mouth once daily. lisinopril 40 mg tablet Take 40 mg by mouth once daily. No current facility-administered medications for this visit. Review of Systems: Answers submitted by the patient for this visit: Core Review of Systems (Submitted on 04/12/2023) Fever : No Night Sweats: No Recent Unintentional Weight Change: No Nasal Congestion: Yes Hearing Loss: No Vision Disturbance: No A Cough: No Difficulty Breathing?: No Chest Pain: No Irregular Heart Beat: No Leg Swelling: No Nausea: No Diarrhea: No Black Tarry Stools: No Difficulty Urinating?: No Awaken at Night More Than Once to Urinate?: Yes Joint Pain or Stiffness: Yes Muscle Aches: Yes Leg or Foot Discomfort at Night?: No A Rash: No Dizziness: Yes Headaches: Yes Memory Loss: No Seizures: No Previous laboratory results: Component Latest Ref Rng & Units 02/23/2023 03/15/2023 03/21/2023 04/12/2023 Cortisol 4.8 - 19.5 ug/dL 2.5 (L) 15.7 3.5 (L) ACTH 7.2 - 63.3 pg/mL 18.6 13.4 12.9 TSH 0.270 - 4.200 mIU/L 1.710 2.510 Free T4 0.9 - 1.7 ng/dL 1.4 1.1 Prolactin 4.0 - 15.2 ng/mL 7.9 8.0 Insulin-like Growth Factor I 49 - 214 ng/mL 147 170 Growth Hormone <1.00 ng/mL 0.07 <0.05 FSH 1.5 - 12.4 mIU/mL 2.8 2.9 LH 1.8 - 10.8 mIU/mL 2.3 3.1 Component Latest Ref Rng & Units 02/04/2023 02/05/2023 02/23/2023 WBC 3.70 - 11.00 k/uL 5.63 RBC 4.20 - 6.00 m/uL 4.30 Hemoglobin 13.0 - 17.0 g/dL 12.1 (L) Hematocrit 39.0 - 51.0 % 36.6 (L) MCV 80.0 - 100.0 fL 85.1 MCH 26.0 - 34.0 pg 28.1 MCHC 30.5 - 36.0 g/dL 33.1 RDW-CV 11.5 - 15.0 % 13.5 Platelet Count 150 - 400 k/uL 295 MPV 9.0 - 12.7 fL 9.8 Absolute nRBC <0.01 k/uL <0.01 Glucose 74 - 99 mg/dL 131 (H) BUN 9 - 24 mg/dL 11 Creatinine 0.73 - 1.22 mg/dL 1.17 Sodium 136 - 144 mmol/L 139 Potassium 3.7 - 5.1 mmol/L 3.3 (L) Chloride 97 - 105 mmol/L 101 CO2 22 - 30 mmol/L 26 Anion Gap 9 - 18 mmol/L 12 Calcium 8.5 - 10.2 mg/dL 9.1 eGFR >=60 mL/min/1.73m 70 Cortisol 4.8 - 19.5 ug/dL 45.1 (H) 2.5 (L) TSH 0.270 - 4.200 mIU/L 2.310 0.977 Free T4 0.9 - 1.7 ng/dL 1.9 (H) 1.2 Testo Free Adult Male 47.0 - 244.0 pg/mL 28.7 (L) Testosterone 193 - 824 ng/dL 94 (L) Operative Report: Pathology: Pathology 02/03/2023 FINAL DIAGNOSIS Pituitary region, sellar lesion, biopsy/resection - Pituitary neuroendocrine tumor (pituitary adenoma); see comment. Diagnosis Comment Anterior pituitary tissue shows loss of acinar architecture. Immunohistochemical stains performed on block A1 for classification show the following in tumor cells: SF1 a few scattered positive cells (uncertain significance); Pit1 negative; GH negative; PRL negative; TSH negative; Tpit positive (performed twice with patchy positivity in tumor cells suggestive of corticotroph); CAM5.2 positive in usual cytoplasmic pattern; Ki-67 proliferative index 3%. Imaging: Dec 20 2022 MRI PITUITARY WO/W IVCON COMPARISON: MRI pituitary 05/13/2020-12/07/2021 RESULT: Postop Changes: None Adenohypophysis/suprasellar region: Circumscribed heterogeneous T2 hyperintense, T1 iso to hypointense, enhancing sellar mass measuring approximately 1.7 x 2.7 x 1.4 cm (TV x CC x AP) extending through the floor the sella into the sphenoid sinus along the sphenoid sinus septum. Although the intrasellar component appears unchanged size, the portion extending into the sphenoid sinus has progressively increased in size over multiple prior exams. Slight effacement of the suprasellar cistern with no abutment of the optic chiasm. Neurohypophysis: Not clearly demonstrated. Cavernous Sinuses: Unchanged abutment of the medial contours of the carotid siphons without associated encasement, luminal narrowing, or flow void disruption. Brain Parenchyma: The overlying hypothalamus is normal in appearance. Unchanged scattered punctate foci of T2 hyperintensity in the supratentorial white matter likely representing chronic microvascular ischemia. The visualized parenchyma is otherwise normal in signal intensity and morphology. Skull Base: No evidence of a marrow replacement process in the underlying skull base. Partially visualized lobulated mucosal thickening along the inferior margin of the right maxillary sinus with probable small mucous retention cyst along with mucosal thickening along the inferior margin of the left maxillary sinus. Partially visualized presumed thickening in ethmoid air cells and along the left frontal sinus drainage pathway. documented [facility]23 Miscellaneous Notes* Telephone Encounter - Xi Aguillon RN - 04/11/2023 2:06 PM EDT Spoke to patient and let him know the lab orders are in. Xi Aguillon RN documented in this encounterSal[facility]08-[facility]-2023 Miscellaneous Notes* Telephone Encounter - Aurelia Arellano - 04/11/2023 10:37 AM EDT General Call Caller : Pt Contact Reason for Call : Pt is requesting a call back once the following orders are available in Epic: Acth Cortisol & a complete Pituitary panel I'd be happy to call, let me know Patient requesting return call ? Yes * Telephone Encounter - Nona Lucero RN - 04/11/2023 8:35 AM EDT Hiro, A laboratory manager from [facility] called because this patient is currently at the lab needing his lab orders before 10 a.m. The note states full pituitary panel but I'm not sure entirely what that entails. Can you please help with this and please call laboratory manager at [phone] when lab orders are placed? Thanks, JENNIFER Davison RN [facility] documented in this encounterSalem [facility]07-31-2023 Miscellaneous Notes* Telephone Encounter - Joanie Tian RN - 04/04/2023 11:58 AM EDT Spoke with patient and reviewed Sujatha's instructions Discussed keeping mixed bottle in frig but letting the 4 ounces come to room temp before irrigatingand not irrigating with cold solution He read back instructions correctly and will let us know if he has any further questions . * Telephone Encounter - Adelaida Lagunas APRN.CNP - 04/04/2023 10:18 AM EDT Will have patient start doing bactroban rinses. Bactroban (mupirocin) 2% irrigation solution: Mix one 22gm tube of bactroban (mupirocin)2% ointment in one liter of saline. (4-5 day supply) Pour 120ml (4 ounces) of the bactroban (mupirocin)2% solution in your irrigation bottle. (if using the Delbert med rinse bottle, fill to the fci gene) Irrigate each nostril with 1/2 of the solution on each side. (60ml per nostril) Do this twice daily. This is an off label use of the medication. Keep his appt with Dr. Sheth documented in this encounterSal[facility]07-13-2023 Nurse Note* Xi Kent Ma - 03/17/2023 12:18 PM EDT Additional intake questions: Has the patient had fever, nausea, vomiting, diarrhea, constipation, fatigue for > 1 week? No Does the patient have a decreased appetite? No Does patient want to see a Road Supervisor? No (yes to any of above refer patient to schedulers for dietitian appointment) ) Does patient have any new or increased numbness or tingling of extremities? No Is patient interested in fertility information? No Does patient need any prescription refills? No Does patient have an advanced directive in place? No, Patient referred to [facility] documented in this encounterSal[facility]07-13-2023 History of Present illness Narrative* Misha Weaver MD - 03/17/2023 12:00 PM EDT Images from the original note were not included. 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 He is doing well overall. Surprisingly, he developed delayed low cortisol 1 weeks postop, which makes one wonder if there was some partial function of his presumed silent ACTH tumor.He is on cortef and weaning per Dr. Causey. He does not have any new endocrinopathy. MRI showsGTR. I recommend repeat MRI pituitary wwo in 9mo and visit with Dolly Lucas. Hopefully he'll have a durable benefit from resection of silent ACTH macroadenoma. Misha Weaver MD Staff, Skull Base & Cerebrovascular Surgery Department of Neurological Surgery [facility] SUBJECTIVE: Patient is with . Vision normal No rhinorrhea Dx with sinus infection yesterday dx based on endoscopic exam and started abx Still having some fatigue Current Outpatient Medications Medication Sig amoxicillin-clavulanic acid (AUGMENTIN) 875-125 mg per tablet Take 1 tablet by mouth twice daily for 14 days. hydrocortisone (CORTEF) 5 mg tablet Take 3 tablets daily according to the steroid weaning schedule potassium chloride ER (KLOR-CON) 20 mEq tablet Take 1 tablet by mouth twice daily. (Patient not taking: Reported on 03/16/2023) hydrocortisone (CORTEF) 10 mg tablet Take 1 tablet by mouth as directed. Take 2 tabs in am and 1 tab at 2pm apremilast (OTEZLA) 30 mg tablet Take 1 tablet by mouth twice daily. PLEASE DO NOT TAKE THIS MEDICATION UNTIL CLEARED TO DO SO BY ENT AT YOUR FOLLOW UP APPOINTMENT FOR WOUND CHECK acetaminophen (TYLENOL) 500 mg tablet 2 tablets by ORAL/FEEDING TUBE route every 6 hours as needed for pain. senna-docusate (SENNA-S) 8.6-50 mg per tablet 1 tablet by ORAL/FEEDING TUBE route twice daily. (Patient not taking: Reported on 03/16/2023) sodium chloride 0.65 % nasal spray Use 2 Sprays in each nostril four times daily. hydrocortisone 2.5 % cream Apply 1 application to affected area twice daily as needed (Skin irritation). mirabegron (MYRBETRIQ) 50 mg Tb24 Take 50 mg by mouth once daily. oxybutynin ER (DITROPAN XL) 10 mg 24 hr tablet Take 10 mg by mouth once daily. cloNIDine HCl (CATAPRES) 0.2 mg tablet Take 0.2 mg by mouth three times daily. Lactobacillus acidophilus (PROBIOTIC) 10 billion cell cap Take 1 capsule by mouth once daily. loratadine (CLARITIN) 10 mg tablet Take 10 mg by mouth once daily. finasteride 5 mg tablet Take 5 mg by mouth once daily. hydrALAZINE 100 mg tablet Take 100 mg by mouth three times daily. carvedilol 25 mg tablet Take 25 mg by mouth twice daily with meals. Levothyroxine 50 mcg cap Take 1 capsule by mouth once daily. lisinopril 40 mg tablet Take 40 mg by mouth once daily. No current facility-administered medications for this visit. PHYSICAL EXAMINATION: BP 162/79[md notified[ Pulse 70 Temp (Src) 98.1 (Oral) Resp 17 Wt 230 lb 6.4 oz (104.5kg) SpO2 98% Oriented to person, place, and time Speech: Normal fluency and comprehension 2nd cranial nerve: Full visual fountain 3rd, 4th and 6th cranial nerves: Pupils equally round and reactive to light, extraocular movements intact without nystagmus or subjective diplopia 5th cranial nerve: V1-3 intact to light touch bilaterally 7th cranial nerve: Facial muscles full and symmetric bilaterally 8th cranial nerve: hearing intact to finger rub bilaterally 9th cranial nerve: gag reflex test deferred 10th cranial nerve: Palate elevates symmetrically and uvula in the midline 11th nerve: shoulder shrug 5/5 bilaterally 12th cranial nerve: tongue protrudes in the midline Motors: 5/5 strength throughout without pronator drift Sensation: intact to light touch in all extremities Coordination: no dysmetria on finger-nose testing bilaterally Gait: able to stand and ambulate independently with normal gait DATA REVIEW: MRI: GTR documented in this encounterSal[facility]07-12-2023 NoteHNO ID: [id number] Author: JULIA Fong Service: Radiology Author Type: Technologist Type: Progress Notes Filed: 03/16/2023 5:37 PM Note Text: Radiology Service Progress Note DATE OF SERVICE: March 16, 2023 TIME: 5:37 PM PATIENT IDENTITY VERIFICATION COMPLETED USING TWO (2) STANDARD IDENTIFIERS: Name and Date of confirmed by patient verbally and Name and Date of confirmed by identification band. FALL SCREENING: Has the patient had 2 falls in the last year or 1 fall with injury or currently using an Ambulatory Assistive Device (Walker, Cane, Wheelchair, Crutches, etc.)? No PATIENT GENDER DATA: Male PATIENT RELEVANT IMPLANT DATA REVIEWED: Yes ALLERGIES: Reviewed and unchanged CONTRAST ALLERGY: NO. EXAM: MRI - CONTRAST TYPE: GROUP II PERIPHERAL IV DATA: Ambulatory: A peripheral IV was started in the Left antecubital site with a Angio cath: 22 gauge. RADIOLOGY DEPARTMENT: MR; Exam(s) Completed: Head: Pituitary SIGNATURE: JULIA Fong PATIENT NAME: Myranda Olea DATE: March 16, 2023 TIME: 5:37 PMSelect [facility] [id number] History of Present illness Narrative* Adelaida Lagunas APRN.STRATEGIC ACCOUNTS MANAGER - 03/16/2023 1:54 PM EDT Images from the original note were not included. SECTION OF RHINOLOGY, SINUS AND SKULL BASE SURGERY Head and Neck [place] FOLLOW-UP CLINIC NOTE ID: Myranda Olea is 62 year old male CC: postop HPI: Myranda Olea is a 62 year old male was seen today for postop evaluation s/p endoscopic pituitary tumor resection. He is doing well, but he is still fatigued although this has improved. He is rinsing his nose twice daily. Physical Examination: HEENT physical examination: Pt appears stated age, face is symmetric. Pt is alert and oriented and in no acute distress, voice is normal. Anterior rhinoscopy reveals no purulence or crusting. CN III - CN XII grossly intact PROCEDURE NOTE: Procedure: nasal endoscopy Indication: postop Informed Consent obtained: risks, benefits, alternatives, and expectations discussed with pt and the pt wishes to proceed. Findings: After anesthesia and decongestion with 2% lidocaine and 0.5% phenylephrine solution , thenasal cavities were exmained with a nasal endoscope. This demonstrated that while there is no crusting, there is thick greenish yellow purulence draining from the area of the surgical site. No leaking. The patient tolerated the procedure well and there were no complications Assessment S/p pituitary adenoma resection Acute sinusitis Plan Nasal endoscopy today to assess for postop demonstrates an infection from the surgical site Augmentin 875mg 1 po bid x 2 weeks Continue saline rinses twice daily Follow up in 6 weeks Adelaida Coffman APRN.[facility] Rhinology Sinus and Skull Base Surgery [facility] [place] Medical Decision Making: Problems: Moderate: New problem with uncertain prognosis Risk: Low: Low risk from testing/treatment Moderate: Drug management Medical Decision Making Level: 4 - Moderate documented in this encounterSal[facility]07-12-2023 Nurse Note* Rissa Smith MA - 03/16/2023 1:40 PM EDT Tobacco Use: Never Was smoking cessation packet given? N/A - Patient is a non-smoker or quit >1 year ago. Was a referral initiated?N/A Patient is a non-smoker documented in this encounterSalem [facility]07-06-2023 Instructions* Patient Instructions* Alayna Causey MD - 03/10/2023 11:03 AM EDT Please obtain a full pituitary panel of labs at 8 AM after an overnight fast in 1 week, which will be 6 weeks after surgery. Follow-up in 6 months. Please send me a [employer] message, if you have not heard from me within 1 week of your lab tests being drawn. Alayna Causey MD documented in this encounterSal[facility]07-06-2023 History of Present illness Narrative* Alayna Causey MD - 03/10/2023 10:07 AM EDT Endocrinology/Initial Pituitary Assessment Note: Patient is being evaluated today via a Virtual Visit using a HIPPA compliant platform, zoom via [employer]. It required patient-provider interaction for the medical decision making as documented below. Patient consented to treatment I have communicated my name and active licensure. The patient's identity and physical location wereverified at the time of this visit. Either the patient or their legal group sales representative has been informed of the risks and benefits of -- and alternatives to -- treatment through a remote evaluation andconsents to proceed with the evaluation remotely. ASSESSMENT/PLAN: 62-year-old male here for evaluation of his pituitary hormone function after having had endoscopic transsphenoidal resection of pituitary tumor performed on 02/03/2023 for a macroadenoma that was increasing in size. 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 This may be considered more aggressive than nonfunctional adenomas, as it is hypothesized that the lack of hypercortisolism or even presence of hypocortisolism favorizes the exaggerated growth of tumoral corticotrophs. We will monitor closely. Diagnoses for today's visit: (Z86.018) History of pituitary adenoma (primary encounter diagnosis) (Z98.890) History of pituitary surgery (R79.89) Low testosterone (E29.1) Hypogonadism in male (E03.9) Acquired hypothyroidism (E23.7) Pituitary disorder (HCC) (E89.89) Oth postproc endocrine and metabolic comp and disorders (Z09) Follow-up exam PLAN: We will obtain a full pituitary panel in 4 week when he is down to a more physiologic dose of steroids. Repeat MRI in 1 year Steroid weaning schedule: Decrease the a.m. dose of Cortef from 20 mg to 10 mg Continue the p.m. dose of Cortef 10 mg After 2 weeks Continue Cortef 10 mg in the morning Reduce Cortef from 10 mg to 5 mg in the afternoon After 2 weeks Continue Cortef 10 mg in the morning Reduce Cortef to stop the p.m. dose of Cortef You will now be on only Cortef 10 mg in the morning At this point, please get labs done Get am ACTH, cortisol and the rest of the pituitary panel done. The morning of the test DO NOT take cortef. Get the labs done first and then it is okay to take the Cortef Follow-up with me in 5 weeks at which point we will review these labs. The pituitary panel will also again be rechecked once off all steroids. All the patient`s questions were answered. The patient expressed understanding of all the information relayed and has agreed to this plan. I spent a total of 60 minutes on the date of the service which included preparing to see the patient, virtual patient care, completing clinical documentation, obtaining and/or reviewing separately obtained history, performing a medically appropriate examination, counseling and educating the patient/family/caregiver, ordering medications, tests, or procedures, communicating with other HCPs (not separately reported), independently interpreting results (not separately reported), communicating results to the patient/family/caregiver and care coordination (not separately reported). Patient would like to follow-up with his local obstetrics gynecology md so I will CC this note to her : CC to [facility] Monikalianna Lovett SIGNATURE: Alayna Causey MD DATE of SERVICE: March 10, 2023 TIME of SERVICE: 10:07 AM CC: History of pituitary adenoma History of pituitary surgery Hypothyroidism Hypogonadism Low testosterone Referred By: Dolly Lucas APRN, CNP My final recommendations will be communicated back to the requesting physician by way of shared Medical record or letter to requesting physician via US mail. History of Present Illness: Mr. Myranda Olea is a 62 year old male coming today for evaluationof his pituitary gland 62-year-old male here for evaluation of his pituitary hormone function after having had endoscopic transsphenoidal resection of pituitary tumor performed on 02/03/2023. He has a history of a macroadenoma that was increasing in size, and hence the decision was made for resection. Postop, there was no evidence of DI and he was discharged on 02/05/2023 in stable condition. Surgical pathology showed anterior pituitary tissue with loss of acinar architecture and immunohistochemical stains showed a few scattered positive cells for SF1 and also T Pit Positive with a Ki-67 index of 3% He also has a history of pre-existing presumed primary hypothyroidism that was treated with Synthroid 50 mcg daily. Returning to work from short term disability on March 25. After surgery, he was discharged with hydrocortisone 20 mg in the morning and 10 mg in the afternoon. He may not need this so we will try to wean him off slowly. Patient Also described the following: Headaches:Yes, occasionally about 2 x per week, severity 3/10, lasts a 30-60 mins, relieved by tylenol, visual defects:No, increased thirst or urination:No,Nocturia: Yes, 1-2x discharge from breast:No, painful breast: No, Breast swelling:No, increased head/hand or shoe size:No Darkening of skin/gums:No, salt craving:No, skin stretch call:No, easy bruising:No, excess hair growth over face/chin/chest/or abdomen:No,difficulty raising arms overhead, difficulty getting up froma seated position:No Past Medical History: PAST MEDICAL HISTORY Diagnosis Date Anemia Anemia Autoimmune disorder (HCC) HTN (hypertension) Hypothyroid Nonspecific abnormal finding in stool contents Other abnormal glucose Personal history of pneumonia (recurrent) Pure hyperglyceridemia Rheumatoid arthritis (HCC) Surgical History: PAST SURGICAL HISTORY Procedure Laterality Date CHOLEYCYSTOGRAM,GALL BLADDER 2017 COLONOSCOPY 04/21/2011 Normal. ESOPHAGOGASTRODUODENOSCOPY TRANSORAL DIAGNOSTIC 06/09/2012 EGD TONSILLECTOMY HX Family Medical History: FAMILY HISTORY Problem Relation Age of Onset Cancer Mother Hypertension Mother Coronary Artery Disease Father Prostate Cancer Father other (diverticulitis) Brother Anesthesia Problems No Family History Social History: Social History Tobacco Use Smoking status: Never Smokeless tobacco: Never Substance Use Topics Alcohol use: No Drug use: No Allergies: ALLERGIES Allergen Reactions Milk GI Upset cough, diarrhea, scratchy throat Current medications: Current Outpatient Medications Medication Sig potassium chloride ER (KLOR-CON) 20 mEq tablet Take 1 tablet by mouth twice daily. hydrocortisone (CORTEF) 10 mg tablet Take 1 tablet by mouth as directed. Take 2 tabs in am and 1 tab at 2pm apremilast (OTEZLA) 30 mg tablet Take 1 tablet by mouth twice daily. PLEASE DO NOT TAKE THIS MEDICATION UNTIL CLEARED TO DO SO BY ENT AT YOUR FOLLOW UP APPOINTMENT FOR WOUND CHECK acetaminophen (TYLENOL) 500 mg tablet 2 tablets by ORAL/FEEDING TUBE route every 6 hours as needed for pain. senna-docusate (SENNA-S) 8.6-50 mg per tablet 1 tablet by ORAL/FEEDING TUBE route twice daily. sodium chloride 0.65 % nasal spray Use 2 Sprays in each nostril four times daily. hydrocortisone 2.5 % cream Apply 1 application to affected area twice daily as needed (Skin irritation). mirabegron (MYRBETRIQ) 50 mg Tb24 Take 50 mg by mouth once daily. oxybutynin ER (DITROPAN XL) 10 mg 24 hr tablet Take 10 mg by mouth once daily. cloNIDine HCl (CATAPRES) 0.2 mg tablet Take 0.2 mg by mouth three times daily. Lactobacillus acidophilus (PROBIOTIC) 10 billion cell cap Take 1 capsule by mouth once daily. loratadine (CLARITIN) 10 mg tablet Take 10 mg by mouth once daily. finasteride 5 mg tablet Take 5 mg by mouth once daily. hydrALAZINE 100 mg tablet Take 100 mg by mouth three times daily. carvedilol 25 mg tablet Take 25 mg by mouth twice daily with meals. Levothyroxine 50 mcg cap Take 1 capsule by mouth once daily. lisinopril 40 mg tablet Take 40 mg by mouth once daily. No current facility-administered medications for this visit. Review of Systems: GENERAL: No weight loss, malaise or fevers HEENT: No changes in hearing or vision, no nose bleeds or other nasal problems NECK: Negative for lumps, goiter, pain and significant neck swelling RESPIRATORY: Negative for cough, dyspnea or shortness of breath CARDIOVASCULAR: Negative for chest pain, leg swelling, or palpitations GI: No nausea, vomiting, or diarrhea MUSCULOSKELETAL: Negative for joint pain or swelling SKIN: Negative for lesions, rash, and itching HEMATOLOGY: Negative for prolonged bleeding, bruising easily or swollen nodes ENDOCRINE: Negative for cold or heat intolerance, NEURO: No headaches, syncope Previous laboratory results: Component Latest Ref Rng & Units 02/04/2023 02/05/2023 02/23/2023 WBC 3.70 - 11.00 k/uL 5.63 RBC 4.20 - 6.00 m/uL 4.30 Hemoglobin 13.0 - 17.0 g/dL 12.1 (L) Hematocrit 39.0 - 51.0 % 36.6 (L) MCV 80.0 - 100.0 fL 85.1 MCH 26.0 - 34.0 pg 28.1 MCHC 30.5 - 36.0 g/dL 33.1 RDW-CV 11.5 - 15.0 % 13.5 Platelet Count 150 - 400 k/uL 295 MPV 9.0 - 12.7 fL 9.8 Absolute nRBC <0.01 k/uL <0.01 Glucose 74 - 99 mg/dL 131 (H) BUN 9 - 24 mg/dL 11 Creatinine 0.73 - 1.22 mg/dL 1.17 Sodium 136 - 144 mmol/L 139 Potassium 3.7 - 5.1 mmol/L 3.3 (L) Chloride 97 - 105 mmol/L 101 CO2 22 - 30 mmol/L 26 Anion Gap 9 - 18 mmol/L 12 Calcium 8.5 - 10.2 mg/dL 9.1 eGFR >=60 mL/min/1.73m 70 Cortisol 4.8 - 19.5 ug/dL 45.1 (H) 2.5 (L) TSH 0.270 - 4.200 mIU/L 2.310 0.977 Free T4 0.9 - 1.7 ng/dL 1.9 (H) 1.2 Testo Free Adult Male 47.0 - 244.0 pg/mL 28.7 (L) Testosterone 193 - 824 ng/dL 94 (L) Operative Report: Pathology: Pathology 02/03/2023 FINAL DIAGNOSIS Pituitary region, sellar lesion, biopsy/resection - Pituitary neuroendocrine tumor (pituitary adenoma); see comment. Diagnosis Comment Anterior pituitary tissue shows loss of acinar architecture. Immunohistochemical stains performed on block A1 for classification show the following in tumor cells: SF1 a few scattered positive cells (uncertain significance); Pit1 negative; GH negative; PRL negative; TSH negative; Tpit positive (performed twice with patchy positivity in tumor cells suggestive of corticotroph); CAM5.2 positive in usual cytoplasmic pattern; Ki-67 proliferative index 3%. Imaging: Dec 20 2022 MRI PITUITARY WO/W IVCON COMPARISON: MRI pituitary 05/13/2020-12/07/2021 RESULT: Postop Changes: None Adenohypophysis/suprasellar region: Circumscribed heterogeneous T2 hyperintense, T1 iso to hypointense, enhancing sellar mass measuring approximately 1.7 x 2.7 x 1.4 cm (TV x CC x AP) extending through the floor the sella into the sphenoid sinus along the sphenoid sinus septum. Although the intrasellar component appears unchanged size, the portion extending into the sphenoid sinus has progressively increased in size over multiple prior exams. Slight effacement of the suprasellar cistern with no abutment of the optic chiasm. Neurohypophysis: Not clearly demonstrated. Cavernous Sinuses: Unchanged abutment of the medial contours of the carotid siphons without associated encasement, luminal narrowing, or flow void disruption. Brain Parenchyma: The overlying hypothalamus is normal in appearance. Unchanged scattered punctate foci of T2 hyperintensity in the supratentorial white matter likely representing chronic microvascular ischemia. The visualized parenchyma is otherwise normal in signal intensity and morphology. Skull Base: No evidence of a marrow replacement process in the underlying skull base. Partially visualized lobulated mucosal thickening along the inferior margin of the right maxillary sinus with probable small mucous retention cyst along with mucosal thickening along the inferior margin of the left maxillary sinus. Partially visualized presumed thickening in ethmoid air cells and along the left frontal sinus drainage pathway. [facility] Miscellaneous Notes* Telephone Encounter - Dolly Lucas APRN.CNP - 02/24/2023 9:22 AM EDT F/up [address] Causey (virtual, new) Dx: pituitary adenoma Dolly Lucas APRN.CNP documented [facility] this [facility]06[facility]23 Miscellaneous Notes* Telephone Encounter - Dolly Lucas APRN.CNP - 02/24/2023 9:17 AM EDT Updated patient and about low cortisol level. Per Dr. Job Tracy will start cortef 24/06. Will also replete potassium. Will schedule patient to see Dr. Causey in two weeks. Dolly Lucas APRN.CNP documented in this [facility]06-[facility]23 Miscellaneous Notes* Telephone Encounter - Katherin Ruff RN - 02/07/2023 2:17 PM EDT 4-6 Weeks MRI Owen Tracy Post Op Surgery 02/03 Dx: Pituitary Adenoma documented in this [facility]05-11-[facility] History of Present illness Narrative* William Amado DO - 01/13/2023 8:00 AM EDT Images from the original note were not included. [facility] [address] [place] [id number] Visit type: Established Patient Reason for Visit: Follow-up (6 month med check) Assessment / Plan: Myranda was seen today for follow-up. Diagnoses and all orders for this visit: Essential hypertension (Primary) Comments: Stable, continue lisinopril, hydralazine, clonidine and carvedilol Hypothyroidism, unspecified type Hypertriglyceridemia Comments: Stable, check lab and continue Lipitor Orders: - Lipid panel; Future - Lipid panel Pituitary neoplasm Prediabetes Elevated prostate specific antigen less than 10 ng/ml Comments: Noted, discussed need for follow-up of PSA in 6 months. Acknowledge use of Proscar Other orders - carvedilol (Coreg) 25 MG tablet; Take 1 tablet (25 mg) by mouth in the morning and 1 tablet (25 mg) in the evening. Take with meals. - cloNIDine (Catapres) 0.2 MG tablet; Inc to 0.2 mg tab TID Strength: 0.2 mg - finasteride (Proscar) 5 MG tablet; Take 1 tablet (5 mg) by mouth daily. - hydrALAZINE (Apresoline) 100 MG tablet; Take 1 tablet (100 mg) by mouth 3 times daily. - lisinopril 40 MG tablet; Take 1 tablet (40 mg) by mouth daily. - atorvastatin (Lipitor) 20 MG tablet; Take 1 tablet (20 mg) by mouth Nightly. Subjective: Patient ID: Myranda Olea is a 62 y.o. male. HPI hypertension lipid management for diet-controlled type II diabetic with history of pituitary adenoma, inflammatory arthritis, and hypothyroidism. Of note is getting a pituitary Matthias adenoma surgery in 03 February. Recent urology notes reviewed with history of elevated PSA and prostate biopsy. Recent MRI of the pelvis noted as well as slightly elevated PSA. Question when he is getting recheck in 6 to 12 months. Review of Systems joint rodríguez he is feeling fine on Otezla. No recent earache or sore throat or cough. No chest pain or palpitations. No PND orthopnea claudication or edema. A1c 6.3. Trying to lose some weight and better dietary discretions. No diabetic symptoms of polyuria polydipsia. No heartburn or reflux. Due for colonoscopy in fall 2023. Allergies Allergen Reactions Lac Bovis Other reaction(s): GI Upset cough, diarrhea, scratchy throat Other reaction(s): GI Upset Diltiazem Other reaction(s): Other (See Comments) edema Other reaction(s): Unknown Gluten Meal Other reaction(s): Intolerance Other reaction(s): Abd cramps/diarrhea, Intolerance Milk-Related Compounds Other reaction(s): Other (See Comments) Lactose intolerant Other reaction(s): Diarrhea Current Outpatient Medications on File Prior to Visit Medication Sig Dispense Refill acetaminophen (Tylenol 8 Hour) 650 MG ER tablet Take 650 mg by mouth every 8 hours as needed for mild pain (1-3). Do not crush, chew, or split. apremilast (Otezla) 30 MG tablet Take 30 mg by mouth in the morning and 30 mg in the evening. cholecalciferol (Vitamin D3) 25 MCG (1000 UT) tablet Take by mouth daily. Glucose Blood (Blood Glucose Test) strip 100 strips by Other route. hydrocortisone 2.5 % cream Apply topically. ketoconazole (NIZOral) 2 % shampoo Lancets (Regentis BiomaterialsTouch Delica Plus [id number]) misc levothyroxine (Synthroid, Levoxyl) 75 MCG tablet mirabegron ER (Myrbetriq) 50 MG 24 hr tablet Multiple Vitamins-Iron (MULTI-VITAMIN/IRON PO) Take by mouth. OneTouch Verio test strip oxybutynin XL (Ditropan-XL) 10 MG 24 hr tablet Probiotic, Lactobacillus, capsule Take by mouth daily. [DISCONTINUED] atorvastatin (Lipitor) 20 MG tablet Take 1 tablet (20 mg) by mouth Nightly. 30 tablet 5 [DISCONTINUED] carvedilol (Coreg) 25 MG tablet Take 1 tablet (25 mg) by mouth in the morning and 1 tablet (25 mg) in the evening. 60 tablet 5 [DISCONTINUED] cloNIDine (Catapres) 0.2 MG tablet Inc to 0.2 mg tab TID Strength: 0.2 mg 90 tablet 5 [DISCONTINUED] finasteride (Proscar) 5 MG tablet Take 1 tablet (5 mg) by mouth daily. 30 tablet 5 [DISCONTINUED] hydrALAZINE (Apresoline) 100 MG tablet Take 1 tablet (100 mg) by mouth in the morning and 1 tablet (100 mg) at noon and 1 tablet (100 mg) before bedtime. 90 tablet 5 [DISCONTINUED] lisinopril 40 MG tablet Take 1 tablet (40 mg) by mouth daily. 30 tablet 5 [DISCONTINUED] aspirin 81 MG EC tablet Take 81 mg by mouth daily. [DISCONTINUED] levothyroxine (Synthroid, Levoxyl) 50 MCG tablet One q day except Tuesday takes 2 (Patient not taking: Reported on 01/13/2023) 35 tablet 5 [DISCONTINUED] melatonin 5 MG tablet Take 5 mg by mouth every 24 hours as needed. No current facility-administered medications on file prior to visit. Patient Active Problem List Diagnosis Pituitary neoplasm Hypertriglyceridemia Pneumonia Inflammatory arthritis Hypothyroid Prediabetes Hx of colonic polyps Anemia of chronic disease Psoriatic arthritis (HCC) Lactose intolerance Eosinophilic esophagitis Family history of prostate cancer Sleep apnea Essential hypertension Seasonal allergic rhinitis Elevated prostate specific antigen less than 10 ng/ml DJD (degenerative joint disease), lumbar Family history of diabetes mellitus in father Social History Tobacco Use Smoking status: Never Smokeless tobacco: Never Substance Use Topics Alcohol use: No Alcohol/week: 0.0 standard drinks Past Surgical History: Procedure Laterality Date CHOLECYSTECTOMY 2015 COLONOSCOPY 05/2018 small polyp - Mahesh COLONOSCOPY 2010 Dr. Cavanaugh COLONOSCOPY W/ POLYPECTOMY 06/2021 Dr. Zuniga, few polyps/divert ds- due 2023 MAXILLARY SINUSOTOMY (HISTORICAL) 06/2020 Dr. Lo PROSTATE BIOPSY 10/2021 Dr. Norwood, Michael TONSILLECTOMY (HISTORICAL) remote UPPER GASTROINTESTINAL ENDOSCOPY 05/2018 Mahesh- neg, due 2022 UPPER GASTROINTESTINAL ENDOSCOPY N/A 2011 Afshan Family History Problem Relation Name Age of Onset Lung cancer Mother Iraida 79 adeno CA, nonsmoker, age 81 in 07/2022 High Blood Pressure Mother Iraida Cancer Mother Iraida lymphoma Diabetes Father Noe Prostate cancer Father Noe 55 at age 70 in 2008 Coronary artery disease Father Noe Prostate cancer Brother Tomy 52 Hypertension Brother Tomy Prostate cancer Brother Adán 55 age 60 in 03/26 mets to bone, spinal cord comp Objective: BP 138/80 Pulse 68 Temp 36.4 C (97.5 F) (Temporal) Ht 5' 8 (1.727 m) Wt 232 lb 6.4 oz (105kg) SpO2 99% BMI 35.34 kg/m Physical Exam he appears well. No neck masses JVD adenopathy or carotid bruits. Reflexes are dull. Heart is regular without gallops or murmurs. Lungs are clear. Abdomen obese nontender without pain hepatosplenomegaly masses bruits or ascites. Femoral and posterior tibial pulses are adequate. No appreciable edema. documented in this [facility]04-21-2023 Miscellaneous Notes* Telephone Encounter - Dolly Lucas APRN.CNP - 12/24/2022 9:56 AM EDT Reviewed case with Dr. Weaver and at this point given the slow growth surgery can be indicated orif patient prefers to monitor given growth downwards patient can observe and get new MRI in one year. Patient will call back with decision. Dolly Lucas APRN.CNP documented in this [facility]04-17-2023 History of Present illness Narrative* Jessica Arrington RT(Sharon) - 12/20/2022 1:00 PM EDT Radiology Service Progress Note DATE OF SERVICE: December 20, 2022 TIME: 1:14 PM PATIENT IDENTITY VERIFICATION COMPLETED USING TWO (2) STANDARD IDENTIFIERS: Name and Date of confirmed by patient verbally. FALL SCREENING: Has the patient had 2 falls in the last year or 1 fall with injury or currently using an Ambulatory Assistive Device (Walker, Cane, Wheelchair, Crutches, etc.)? No PATIENT GENDER DATA: Male PATIENT RELEVANT IMPLANT DATA REVIEWED: Yes ALLERGIES: Reviewed and unchanged CONTRAST ALLERGY: NO. EXAM: MRI - CONTRAST TYPE: GROUP II PERIPHERAL IV DATA: Ambulatory: A peripheral IV was started in the Left antecubital site with a Angio cath: 22 gauge. RADIOLOGY DEPARTMENT: MR; Exam(s) Completed: Head: Pituitary SIGNATURE: RT Thea(Sharon) PATIENT NAME: Myranda Olea DATE: December 20, 2022 TIME: 1:14 PM documented in this [facility]04-06-2022 History of Present illness Narrative* Dolly Lucas APRN.CNP - 12/09/2021 11:00 AM EDT Images from the original note were not included. Neurological [facility] NEURO-ONCOLOGY VIRTUAL VISIT NOTE This is a virtual visit using HIPAA compliant video platform. It required patient-provider interaction for the medical decision making as documented below. PURPOSE OF VISIT: Ongoing patient management CHIEF COMPLAINT : MRI review for pituitary adenoma MEDICAL DECISION MAKING Assessment & Plan 1. Incidental asymptomatic pituitary adenoma on surveillance since 2019 - MRI pituitary today appears to show stable size of lesion - Images reviewed with the patient - Recommend follow up appointment with new MRI pituitary in one year till year four - Follow up annually with visual field testing and endocrine - Reviewed signs and symptoms that would prompt sooner evaluation - The patient has our contact information and was advised to call if new symptoms, questions or concerns arise prior to next scheduled visit. - All questions were answered. I spent a total of 15 minutes on the date of the service which included preparing to see the patient, [id number] patient care, completing clinical documentation, obtaining and/or reviewing separately obtained history, performing a medically appropriate examination and ordering medications, tests, or procedures. Dolly Lucas APRN.STRATEGIC ACCOUNTS MANAGER Certified Nurse Practitioner cc: Misha Patel MD--[facility] Subjective HISTORY OF PRESENT ILLNESS: Myranda Olea is a 61 year old year old male who was found to have an incidental pituitary adenoma when he had a work up for chronic sinusitis. He last saw Dr. Weaver on 05/14/20 who recommend observation. INTERVAL HISTORY 11/26/20 Since he was last seen he denies any new symptoms. He had visual screening completed and reports novision loss. His cortisol level and testosterone levels were slightly abnormal. He saw Dr. Lovett from endocrinology and her recommendation was to observe. He will see her in the fall of 2020 to repeat labs. 12/09/21 Since he was last seen he has seen Dr. Lovett and had his visual field testing. He reports minor TSH changes and his thyroid medication was slightly increased. He also had an elevated PSA, but is negative for prostate cancer. Overall he is feeling well, just slightly fatigued. SOCIAL HISTORY: Social History Tobacco Use Smoking status: Never Smoker Smokeless tobacco: Never Used Substance Use Topics Alcohol use: No Drug use: No PAST MEDICAL HISTORY Diagnosis Date Anemia Anemia Autoimmune disorder (HCC) HTN (hypertension) Hypothyroid Nonspecific abnormal finding in stool contents Other abnormal glucose Personal history of pneumonia (recurrent) Pure hyperglyceridemia Rheumatoid arthritis (HCC) FAMILY HISTORY Problem Relation Age of Onset Coronary Artery Disease Father Prostate Cancer Father Cancer Mother Hypertension Mother other (diverticulitis) Brother Current Outpatient Medications Medication Sig cloNIDine HCl (CATAPRES) 0.2 mg tablet Take 0.2 mg by mouth twice daily. leucovorin (LEUCOVORIN) 15 mg tablet Take 15 mg by mouth once daily. Lactobacillus acidophilus (PROBIOTIC) 10 billion cell cap Take by mouth once daily. FIBER CHOICE ORAL Take by mouth. METHOTREXATE ORAL Take 2.5 mg by mouth. apremilast (OTEZLA) 30 mg tablet Take 30 mg by mouth twice daily. LORATADINE (CLARITIN ORAL) Take by mouth. FLUTICASONE PROPIONATE (FLONASE NASAL) Use in the nose. meloxicam 15 mg tablet Take 15 mg by mouth as needed. predniSONE 10 mg tablet Take 10 mg by mouth as needed. finasteride 5 mg tablet Take 5 mg by mouth once daily. hydrALAZINE 100 mg tablet Take 100 mg by mouth three times daily. carvedilol 25 mg tablet Take 25 mg by mouth twice daily with meals. Levothyroxine 50 mcg cap Take 1 capsule by mouth once daily. lisinopril 40 mg tablet Take 40 mg by mouth once daily. No current facility-administered medications for this visit. REVIEW OF SYSTEMS : Neurological : No complaint of headache No complaint of tinnitus No complaint of decreased hearing No complaint of diplopia No complaints of blurred vision. No complaint of arm/leg numbness No problem with limb coordination No complaint of syncope No complaints of seizures. No complaints of memory changes or disorientation. General : Constitutional: No recent fever or weight loss. Eyes: No history of glaucoma or cataracts ENMT: No recent ear infection, nasal congestion, mouth sores or sore throat. CV: No history of chest pain, palpitations or leg swelling, + HTN Respiratory: No history of SOB, wheezing or recent cough.+ JULIO Gastrointestinal: No history of nausea, vomiting, dysphagia or abdominal pain. Genitourinary: No history of hematuria or dysuria. Musculoskeletal: No complaint of arthritis, unstable gait or arm/leg weakness, + RA Psychiatric: No history of hallucinations, depression, or anxiety Endo: + hypothyroidism Objective VIDEO EXAM : ( If completed, performed via video enable technology) NEUROLOGICAL EXAM: Higher integrative functions: Oriented to person, place & time. Memory: Good recent and remote. Attention Span and Concentration: Good. Language: Accurate naming of objects. Good comprehension. Fund of Knowledge: Good. IMAGING STUDIES: MRI Pituitary WO/W IVCON 12/07/21 MRI Pituitary Report MRI PITUITARY WO/W IVCON Exam End: 12/07/2021 1:40 PM (Final result) Narrative: * * *Final Report* * * DATE OF EXAM: Dec 07 2021 1:40PM TERRIE 0314 - MRI PITUITARY WO/W IVCON / PROCEDURE REASON: Microadenoma * * * * Physician Interpretation * * * * MRI of the pituitary gland without and with contrast. HISTORY: Macroadenoma TECHNIQUE: Pituitary protocol without and with contrast. MR Contrast: Dotarem Contrast Dose: 10 cc Route of Administration: IV COMPARISON: 11/21/2020 RESULT: Diffuse mildly heterogeneous enlargement of the pituitary gland is unchanged in configuration from the prior examination. Based on coronal and sagittal postcontrast imaging, the enlarged pituitary gland measures approximately 1.9 cm in greatest transverse diameter, and 2.2 cm longitudinally and 1.1 cm in AP diameter. Minimal adjacent infundibular thickening may be from mass effect shortening the infundibulum. Hypothalamic and pineal regions are normal. The lateral margins of the mass abuts the internal carotid artery flow voids within the cavernous sinus without encasing them. Meckel's caves are normal bilaterally. Remainder of the visible brain parenchyma is unchanged from the prior study with relatively mild microvascular ischemic change and no significant volume loss evident. Craniocervical junction is intact. Hypothalamic and pineal regions are otherwise normal. No destructive osseous process or marrow replacing lesion is detected. Impression: IMPRESSION: NO CHANGE IN THE APPEARANCE OF THE PITUITARY GLAND SINCE 11/21/2020. [employer] Building: JONAS Transcribe Date/Time: Dec 07 2021 2:04P Dictated by : ANDER LAMAS MD This examination was interpreted and the report reviewed and electronically signed by: ANDER LAMAS MD on Dec 07 2021 2:06PM EST Complete Results documented in this encounterSal[facility]04-04-2022 History of Present illness Narrative* RT Thea(R) - 12/07/2021 1:00 PM EDT Radiology Service Progress Note DATE OF SERVICE: December 07, 2021 TIME: 1:29 PM PATIENT IDENTITY VERIFICATION COMPLETED USING TWO (2) STANDARD IDENTIFIERS: Name and Date of confirmed by patient verbally. FALL SCREENING: Has the patient had 2 falls in the last year or 1 fall with injury or currently using an Ambulatory Assistive Device (Walker, Cane, Wheelchair, Crutches, etc.)? No PATIENT GENDER DATA: Male PATIENT RELEVANT IMPLANT DATA REVIEWED: Yes ALLERGIES: Reviewed and unchanged CONTRAST ALLERGY: NO. EXAM: MRI - CONTRAST TYPE: GROUP II PERIPHERAL IV DATA: Ambulatory: A peripheral IV was started in the Right antecubital site with a Angio cath: 22 gauge. RADIOLOGY DEPARTMENT: MR; Exam(s) Completed: Head: Pituitary SIGNATURE: MICHELET Sidhu) PATIENT NAME: Myranda Olea DATE: December 07, 2021 TIME: 1:29 PM documented in this encounterSal[facility]03-22-2013 History of Past illness Narrative* Problem Noted Date Resolved Date Leukopenia 11/24/2012 03/15/2014 documented as of this encounter (statuses as of 12/08/2021) [address]22-2013 History of Past illness Narrative* Problem Noted Date Resolved Date Leukopenia 11/24/2012 03/15/2014 documented as of this encounter (statuses as of 12/09/2021) [address]22[address]2013 History of Past illness Narrative* Problem Noted Date Resolved Date Leukopenia 11/24/2012 03/15/2014 documented as of this encounter (statuses as of 12/24/2022) [address]22[address]2013 History of Past illness Narrative* Problem Noted Date Resolved Date Leukopenia 11/24/2012 03/15/2014 documented as of this encounter (statuses as of 12/28/2022) [place] [address]-22-2013 History of Past illness Narrative* Problem Noted Date Resolved Date Leukopenia 11/24/2012 03/15/2014 documented as of this encounter (statuses as of 02/23/2023) [address]22[address]2013 History of Past illness Narrative* Problem Noted Date Resolved Date Leukopenia 11/24/2012 03/15/2014 documented as of this encounter (statuses as of 02/24/2023) [address]2013 History of Past illness Narrative* Problem Noted Date Resolved Date Leukopenia 11/24/2012 03/15/2014 documented as of this encounter (statuses as of 02/28/2023) [address]2013 History of Past illness Narrative* Problem Noted Date Resolved Date Leukopenia 11/24/2012 03/15/2014 documented as of this encounter (statuses as of 03/10/2023) [address]2013 History of Past illness Narrative* Problem Noted Date Resolved Date Leukopenia 11/24/2012 03/15/2014 documented as of this encounter (statuses as of 03/11/2023) [address]2013 History of Past illness Narrative* Problem Noted Date Diagnosed Date Resolved Date Leukopenia 11/24/2012 03/15/2014 documented as of this encounter (statuses as of 03/17/2023) [address]-2013 History of Past illness Narrative* Problem Noted Date Diagnosed Date Resolved Date Leukopenia 11/24/2012 03/15/2014 documented as of this encounter (statuses as of 03/18/2023) [address] History of Past illness Narrative* Problem Noted Date Diagnosed Date Resolved Date Leukopenia 11/24/2012 03/15/2014 documented as of this encounter (statuses as of 04/04/2023) [address] History of Past illness Narrative* Problem Noted Date Diagnosed Date Resolved Date Leukopenia 11/24/2012 03/15/2014 documented as of this encounter (statuses as of 04/11/2023) [address] History of Past illness Narrative* Problem Noted Date Diagnosed Date Resolved Date Leukopenia 11/24/2012 03/15/2014 documented as of this encounter (statuses as of 04/12/2023) [address] History of Past illness Narrative* Problem Noted Date Diagnosed Date Resolved Date Leukopenia 11/24/2012 03/15/2014 documented as of this encounter (statuses as of 04/14/2023) [address] History of Past illness Narrative* Problem Noted Date Diagnosed Date Resolved Date Leukopenia 11/24/2012 03/15/2014 documented as of this encounter (statuses as of 04/18/2023) [address] History of Past illness Narrative* Problem Noted Date Diagnosed Date Resolved Date Leukopenia 11/24/2012 03/15/2014 documented as of this encounter (statuses as of 07/10/2023) [address] History of Past illness Narrative* Problem Noted Date Diagnosed Date Resolved Date Leukopenia 11/24/2012 03/15/2014 documented as of this encounter (statuses as of 07/10/2023) [address] History of Past illness Narrative* Problem Noted Date Diagnosed Date Resolved Date Leukopenia 11/24/2012 03/15/2014 documented as of this encounter (statuses as of 10/14/2023) [address] History of Past illness Narrative* Problem Noted Date Diagnosed Date Resolved Date Leukopenia 11/24/2012 03/15/2014 documented as of this encounter (statuses as of 12/21/2023) [facility] History of Past illness Narrative* Problem Noted Date Diagnosed Date Resolved Date Leukopenia 11/24/2012 03/15/2014 documented as of this encounter (statuses as of 12/22/2023) [facility] Author Estelle Palmer [facility] Note Date/Time March 01, 2025 7:54 am [facility] Medical Records Department [address] [place] [address] Anesthesia Postop Eval I 03/01/25 0753 MR#: [id number] Acct: [id number] Name: MYRANDA OLEA Rep #:[id number] : 1960 64 From: Estelle Palmer CRNA PCP: Dr. William Amado, DO Status: G [facility] Y Race: C Location: [place] [address] Anesthesia: Postop Eval I Current Vital Signs Temperature: 97.2 F Pulse Rate: 90 Blood Pressure: 110/87 Respiratory Rate: 20 Pulse Ox: 98 Assessment Airway patent: Yes Spontaneous unlabored respirations: Yes nausea: No Vomiting: No Anesthesia Complication: No Fluid Hydration Crystalloid volume administer (ml): 300 Total IV fluid infused: 300 Progress Note Anesthesia document: Postop Eval 1 completed: Yes 03/01/25 075 <Electronically signed by Estelle moon CRNA> Date _ Estelle Palmer PRIMARY COUNSELOR Cosigner Signature: Date CC: ~ Signed [facility] Work Phone: Evaluation note* Diagnosis Microadenoma Benign neoplasm of pituitary gland and craniopharyngeal duct (pouch) [facility] Microadenoma Benign neoplasm of pituitary gland and craniopharyngeal duct (pouch) [facility] Diagnosis Onset Date Resolution Status Segmental and somatic dysfunction of cervical region acute Segmental and somatic dysfunction of lumbar region acute Segmental and somatic dysfunction of thoracic region acute Rheumatoid arthritis chronic Segmental and somatic dysfunction of cervical region acute Segmental and somatic dysfunction of lumbar region acute Segmental and somatic dysfunction of pelvic region acute Segmental and somatic dysfunction of thoracic region acute Rheumatoid arthritis chronic Segmental and somatic dysfunction of cervical region acute Segmental and somatic dysfunction of lumbar region acute Segmental and somatic dysfunction of pelvic region acute Segmental and somatic dysfunction of thoracic region acute Rheumatoid arthritis chronic Segmental and somatic dysfunction of cervical region acute Segmental and somatic dysfunction of lumbar region acute Segmental and somatic dysfunction of pelvic region acute Segmental and somatic dysfunction of thoracic region acute Rheumatoid arthritis chronic Segmental and somatic dysfunction of cervical region acute Segmental and somatic dysfunction of lumbar region acute Segmental and somatic dysfunction of pelvic region acute Segmental and somatic dysfunction of thoracic region acute Rheumatoid arthritis chronic Segmental and somatic dysfunction of cervical region acute Segmental and somatic dysfunction of lumbar region acute Segmental and somatic dysfunction of pelvic region acute Segmental and somatic dysfunction of thoracic region acute Rheumatoid arthritis [facility] Work Phone: Evaluation note* Diagnosis Onset Date Resolution Status Segmental and somatic dysfunction of cervical region acute Segmental and somatic dysfunction of lumbar region acute Segmental and somatic dysfunction of pelvic region acute Segmental and somatic dysfunction of thoracic region acute Rheumatoid arthritis chronic Segmental and somatic dysfunction of cervical region acute Segmental and somatic dysfunction of lumbar region acute Segmental and somatic dysfunction of pelvic region acute Segmental and somatic dysfunction of thoracic region acute Rheumatoid arthritis chronic Segmental and somatic dysfunction of cervical region acute Segmental and somatic dysfunction of lumbar region acute Segmental and somatic dysfunction of pelvic region acute Segmental and somatic dysfunction of thoracic region acute Rheumatoid arthritis chronic Segmental and somatic dysfunction of cervical region acute Segmental and somatic dysfunction of lumbar region acute Segmental and somatic dysfunction of pelvic region acute Segmental and somatic dysfunction of thoracic region acute Rheumatoid arthritis chronic Segmental and somatic dysfunction of cervical region acute Segmental and somatic dysfunction of lumbar region acute Segmental and somatic dysfunction of pelvic region acute Segmental and somatic dysfunction of thoracic region acute Rheumatoid arthritis [facility] Work Phone: Evaluation note* Diagnosis Onset Date Resolution Status Segmental and somatic dysfunction of cervical region acute Segmental and somatic dysfunction of lumbar region acute Segmental and somatic dysfunction of pelvic region acute Segmental and somatic dysfunction of thoracic region acute Rheumatoid arthritis chronic Segmental and somatic dysfunction of cervical region acute Segmental and somatic dysfunction of lumbar region acute Segmental and somatic dysfunction of pelvic region acute Segmental and somatic dysfunction of thoracic region acute Rheumatoid arthritis chronic Segmental and somatic dysfunction of cervical region acute Segmental and somatic dysfunction of lumbar region acute Segmental and somatic dysfunction of pelvic region acute Segmental and somatic dysfunction of thoracic region acute Rheumatoid arthritis chronic Acute sinusitis, unspecified acute Uncontrolled hypertension ac andreafski Segmental and somatic dysfunction of cervical region acute Segmental and somatic dysfunction of lumbar region acute Segmental and somatic dysfunction of pelvic region acute Segmental and somatic dysfunction of thoracic region acute Rheumatoid arthritis chronic Segmental and somatic dysfunction of cervical region acute Segmental and somatic dysfunction of lumbar region acute Segmental and somatic dysfunction of pelvic region acute Segmental and somatic dysfunction of thoracic region acute Rheumatoid arthritis [facility] Work Phone: Evaluation note* Diagnosis Onset Date Resolution Status Segmental and somatic dysfunction of cervical region acute Segmental and somatic dysfunction of lumbar region acute Segmental and somatic dysfunction of pelvic region acute Segmental and somatic dysfunction of thoracic region acute Rheumatoid arthritis chronic Segmental and somatic dysfunction of cervical region acute Segmental and somatic dysfunction of lumbar region acute Segmental and somatic dysfunction of pelvic region acute Segmental and somatic dysfunction of thoracic region acute Rheumatoid arthritis chronic Acute sinusitis, unspecified acute Uncontrolled hypertension ac andreafski Segmental and somatic dysfunction of cervical region acute Segmental and somatic dysfunction of lumbar region acute Segmental and somatic dysfunction of pelvic region acute Segmental and somatic dysfunction of thoracic region acute Rheumatoid arthritis chronic Segmental and somatic dysfunction of cervical region acute Segmental and somatic dysfunction of lumbar region acute Segmental and somatic dysfunction of pelvic region acute Segmental and somatic dysfunction of thoracic region acute Rheumatoid arthritis chronic Segmental and somatic dysfunction of cervical region acute Segmental and somatic dysfunction of lumbar region acute Segmental and somatic dysfunction of pelvic region acute Segmental and somatic dysfunction of thoracic region acute Rheumatoid arthritis [facility] Work Phone: Evaluation note* Diagnosis Essential hypertension- Primary Unspecified essential hypertension Hypothyroidism, unspecified type Hypertriglyceridemia Pure hyperglyceridemia Pituitary neoplasm Neoplasm of unspecified nature of endocrine glands and other parts of nervous system Prediabetes Other abnormal glucose Elevated prostate specific antigen less than 10 ng/ml [facility] Pituitary adenoma (HCC)- Primary Benign neoplasm of pituitary gland and craniopharyngeal duct (pouch) [facility] Diagnosis History of pituitary adenoma- Primary History of pituitary surgery Other postprocedural status Low testosterone Other testicular hypofunction Hypogonadism in male Acquired hypothyroidism Unspecified hypothyroidism Pituitary disorder (HCC) Unspecified disorder of the pituitary gland and its hypothalamic control Oth postproc endocrine and metabolic comp and disorders Follow-up exam Unspecified follow-up examination [facility] Pituitary adenoma (HCC)- Primary Benign neoplasm of pituitary gland and craniopharyngeal duct (pouch) Acute sphenoidal sinusitis, recurrence not specified [facility]* Diagnosis Meningioma (HCC)- Primary Benign neoplasm of cerebral meninges [facility]* Diagnosis Pituitary adenoma (HCC)- Primary Benign neoplasm of pituitary gland and craniopharyngeal duct (pouch) [facility]* Diagnosis History of pituitary adenoma- Primary History of pituitary surgery Other postprocedural status Low testosterone Other testicular hypofunction Hypogonadism in male Acquired hypothyroidism Unspecified hypothyroidism Pituitary disorder (HCC) Unspecified disorder of the pituitary gland and its hypothalamic control Other postprocedural endocrine and metabolic complications and disorders Follow-up exam Unspecified follow-up examination [facility]* Diagnosis Onset Date Resolution Status Segmental and somatic dysfunction of cervical region acute Segmental and somatic dysfunction of lumbar region acute Segmental and somatic dysfunction of pelvic region acute Segmental and somatic dysfunction of thoracic region acute Rheumatoid arthritis chronic History of pituitary surgery acute Secondary adrenal insufficiency acute Diabetes chronic Secondary hypothyroidism chr onic Secondary male hypogonadism chronic Segmental and somatic dysfunction of cervical region acute Segmental and somatic dysfunction of lumbar region acute Segmental and somatic dysfunction of pelvic region acute Segmental and somatic dysfunction of thoracic region acute Rheumatoid arthritis chronic Segmental and somatic dysfunction of cervical region acute Segmental and somatic dysfunction of lumbar region acute Segmental and somatic dysfunction of pelvic region acute Segmental and somatic dysfunction of thoracic region acute Rheumatoid arthritis chronic Secondary adrenal insufficiency acute Diabetes chronic Hypertension chronic Secondary male hypogonadism chronic [facility] Work Phone: Evaluation note* Diagnosis Rhinosinusitis- Primary Unspecified sinusitis (chronic) documented in this encounter [facility] note* Diagnosis Microadenoma Benign neoplasm of pituitary gland and craniopharyngeal duct (pouch) documented in this encounter [facility] note* Diagnosis Essential hypertension- Primary Unspecified essential hypertension Inflammatory arthritis Unspecified inflammatory polyarthropathy Type 2 diabetes mellitus without complication, without long-term current use of insulin (CMS/HCC) (HCC) Pituitary neoplasm Neoplasm of unspecified nature of endocrine glands and other parts of nervous system Psoriatic arthritis (HCC) Psoriatic arthropathy Hypothyroidism, unspecified type Hypertriglyceridemia Pure hyperglyceridemia documented in this encounter [facility] note* Diagnosis Flu-like symptoms- Primary Other general symptoms Exposure to influenza Contact with or exposure to other viral diseases Essential hypertension Unspecified essential hypertension documented in this encounter [facility] note* Diagnosis Pituitary adenoma (HCC) Benign neoplasm of pituitary gland and craniopharyngeal duct (pouch) documented in this encounter [facility] note* Diagnosis Onset Date Resolution Status Segmental and somatic dysfunction of cervical region acute Segmental and somatic dysfunction of lumbar region acute Segmental and somatic dysfunction of pelvic region acute Segmental and somatic dysfunction of thoracic region acute Rheumatoid arthritis chronic Diabetes chronic Hypertension chronic Mixed hyperlipidemia chronic Obesity chronic Secondary adrenal insufficiency chronic Secondary hypothyroidism chr onic Segmental and somatic dysfunction of cervical region acute Segmental and somatic dysfunction of lumbar region acute Segmental and somatic dysfunction of pelvic region acute Segmental and somatic dysfunction of thoracic region acute Rheumatoid arthritis chronic Segmental and somatic dysfunction of cervical region acute Segmental and somatic dysfunction of lumbar region acute Segmental and somatic dysfunction of pelvic region acute Segmental and somatic dysfunction of thoracic region acute Rheumatoid arthritis chronic Segmental and somatic dysfunction of cervical region acute Segmental and somatic dysfunction of lumbar region acute Segmental and somatic dysfunction of pelvic region acute Segmental and somatic dysfunction of thoracic region acute Rheumatoid arthritis chronic Segmental and somatic dysfunction of cervical region acute Segmental and somatic dysfunction of lumbar region acute Segmental and somatic dysfunction of pelvic region acute Segmental and somatic dysfunction of thoracic region acute Rheumatoid arthritis chronic Diabetes chronic Hypertension chronic Mixed hyperlipidemia chronic Obesity chronic Secondary adrenal insufficiency chronic Secondary hypothyroidism chr onic Secondary male hypogonadism [facility] Work Phone: Evaluation note* Diagnosis Other postprocedural endocrine and metabolic complications and disorders- Primary documented in this encounter [facility] note* Diagnosis Essential hypertension- Primary Unspecified essential hypertension Rheumatoid arthritis, involving unspecified site, unspecified whether rheumatoid factor present (HCC) Hypertriglyceridemia Pure hyperglyceridemia Acquired hypothyroidism Unspecified hypothyroidism Psoriasis Other psoriasis Type 2 diabetes mellitus without complication, without long-term current use of insulin (CMS/HCC) (HCC) Pituitary adenoma (HCC) Benign neoplasm of pituitary gland and craniopharyngeal duct (pouch) documented in this encounter [facility] note* Diagnosis Annual physical exam- Primary Routine general medical examination at a health care facility Inflammatory arthritis Unspecified inflammatory polyarthropathy Anemia of chronic disease Anemia of other chronic disease Psoriatic arthritis (HCC) Psoriatic arthropathy Hx of colonic polyps Personal history of colonic polyps Family history of prostate cancer Family history of malignant neoplasm of prostate Hypertriglyceridemia Pure hyperglyceridemia Essential hypertension Unspecified essential hypertension Pituitary adenoma (HCC) Benign neoplasm of pituitary gland and craniopharyngeal duct (pouch) Type 2 diabetes mellitus without complication, without long-term current use of insulin (CMS/HCC) (HCC) Acquired hypothyroidism Unspecified hypothyroidism Elevated prostate specific antigen less than 10 ng/ml documented [facility]* Diagnosis Normochromic normocytic anemia- Primary Inflammatory arthritis Unspecified inflammatory polyarthropathy Psoriatic arthritis (HCC) Psoriatic arthropathy documented in this encounter [facility]* Diagnosis Normochromic normocytic anemia- Primary documented in this encounter [facility]* Diagnosis Pituitary adenoma (HCC)- Primary Benign neoplasm of pituitary gland and craniopharyngeal duct (pouch) Hypokalemia Hypopotassemia Essential hypertension Unspecified essential hypertension Hypothyroid Unspecified hypothyroidism Obesity (BMI 35.0-39.9 without comorbidity) Obesity, unspecified BPH (benign prostatic hyperplasia) Unspecified hyperplasia of prostate without urinary obstruction and other lower urinary tract symptoms (LUTS) Sleep apnea Unspecified sleep apnea Pre-op evaluation- Primary Preoperative examination, unspecified Essential hypertension Unspecified essential hypertension Obstructive sleep apnea syndrome Obstructive sleep apnea (adult) (pediatric) Hypothyroidism, unspecified type Prediabetes Other abnormal glucose Rheumatoid arthritis involving multiple sites, unspecified whether rheumatoid factor present ([facility]) OAB (overactive bladder) Hypertonicity of bladder History of BPH Personal history of other specified diseases Obesity (BMI 35.0-39.9 without comorbidity) Obesity, unspecified Other postprocedural endocrine and metabolic complications and disorders [facility] Diagnosis Essential hypertension- Primary Unspecified essential hypertension Hypertriglyceridemia Pure hyperglyceridemia Anemia of chronic disease Anemia of other chronic disease Elevated prostate specific antigen less than 10 ng/ml Prediabetes Other abnormal glucose Inflammatory arthritis Unspecified inflammatory polyarthropathy Celiac disease documented in this encounter [facility] HealthHistory and physical note Author Mitchel Friend [facility] Note Date/Time March 01, 2025 7:22 am [facility] Medical Records Department [address] [place] [address] History & Physical Exam 03/01/25 0719 MR#: [id number] Acct: [id number] Name: MYRANDA OLEA Rep #:[id number] : 1960 64 From: Mitchel Zuniga DO PCP: Dr. William Amado, DO Status:[facility] Location: [place] [address] HPI - General General Date of Admission: 03/01/25 Date of Service: 03/01/25 Chief Complaint: Anemia and Celiac disease HPI Narrative MYRANDA OLEA, is a 64 M who presents for endoscopy regarding +TtG results forceliac disease. He was referred by Oncology/ Hematology for Anemia. reports Labs completed 12/05/2024 reveal hemoglobin of 12.4. Colonoscopy revealed tubular adenomas June 2024. He denies any heartburn, nausea, vomiting, weight loss or pain. [facility] Medical History Prostate disease Low iron Injury of back Dietary restriction Shortness of breath on exertion History of pain when walking History of edema Mixed hyperlipidemia Secondary adrenal insufficiency Acute sinusitis, unspecified Secondary hypothyroidism Pancreatic calcification Wears glasses Diabetes Thyroid disease Rheumatoid arthritis Bladder disease Anemia Back pain Non-smoker CPAP (continuous positive airway pressure) dependence Leg cramps Hypertension History of colon polyps Chronic pancreatitis Lactose intolerance DJD (degenerative joint disease), lumbar Eosinophilic esophagitis Hypertriglyceridemia Bilateral cataracts Seasonal allergies Anemia Segmental and somatic dysfunction of lumbar region Segmental and somatic dysfunction of thoracic region Segmental and somatic dysfunction of cervical region Acute cholecystitis Obesity Hypertension Rheumatoid arthritis Home Medications ?Medication ?Instructions ?Recorded ?Last Taken ?Type carvedilol 25 mg tablet 25 mg PO BID 12/22/15 History finasteride 5 mg tablet 5 mg PO DAILY 12/22/1502/28 History hydralazine 100 mg tablet 100 mg PO TID 12/22/1502/28 History lisinopril 40 mg tablet 40 mg PO DAILY 12/22/1502/04 History multivitamin 1 tab PO DAILY 08/19/1702/04 History hydrocortisone 2.5 % topical cream 1 applic topical BI D PRN Skin 05/25/21 Unknown History Cleansing ketoconazole 2 % shampoo 1 applic topical QODAY 05/2502/28/25 History oxybutynin chloride 10 mg 10 mg PO DAILY 05/25/2102/04 History tablet,extended release 24 hr cholecalciferol (vitamin D3) 25 25 mcg PO DAILY 02/28/25 History mcg (1,000 unit) capsule sulfasalazine 500 mg 1.5 g PO BID 12/15/23 History tablet,delayed release levothyroxine 75 mcg tablet 75 mcg PO MOTUWETHFRSA 06/2802/28/25 History lancets 33 gauge (OneTouch Delica #100 ea 10/15/24 Unk nown Rx Plus Lancet) atorvastatin 20 mg tablet 10 mg PO QHS 12/05/24 History clonidine HCl 0.3 mg tablet 0.3 mg PO BID 12/05/24 History clonidine HCl 0.3 mg tablet 0.6 mg PO QHS 12/05/24 History hydrocortisone 10 mg tablet 10 mg PO TID 12/05/2402/04 History ferrous sulfate 325 mg (65 mg 325 mg PO .2XWK 12/20/24 02/25/25 History iron) tablet (Feosol) tirzepatide 5 mg/0.5 mL 5 mg (0.5 mL) subcut QWEEK # 2 mL 02/21/25 Unknown Rx subcutaneous pen injector (Ioana) Held on 02/27/25. Instructions: HAS NOT STARTED blood sugar diagnostic (FreeStyle #100 ea 02/22/25 Unk nown Rx Lite Strips) blood-glucose meter (FreeStyle #1 ea 02/22/25 Unknown Rx Cora Lite kit) lancets 28 gauge (FreeStyle #100 ea 02/22/25 Unknown R x Lancets) dulaglutide 1.5 mg/0.5 mL 1.5 mg subcut WE 02/27/25 History subcutaneous pen injector (Kristin) hydrochlorothiazide 25 mg tablet 25 mg PO DAILY 02/28/25 History levothyroxine 75 mcg tablet 150 mcg PO CLEARY 02/27/25 History Allergy/AdvReac Type Severity Reaction Status Date / Time diltiazem (From Cardizem) Allergy Unknown PT UNSURE Verified 02/27/25 16:06 OF REACTION Milk Containing Products AdvReac Unknown unknown Verified 02/27/25 16:06 (Dairy) Family History Mother Cancer Hypertension Father Diabetes Prostate cancer Heart disease stent placed High cholesterol Hypertension Surgical History Hx of colonoscopy with polypectomy History of pituitary surgery History of esophagogastroduodenoscopy (EGD) (~05/29/18) S/P colonoscopy (~05/29/18) History of esophagogastroduodenoscopy (EGD) Hx of tonsillectomy Hx of colonoscopy Hx of cholecystectomy S/P cholecystectomy Social History household members: spouse current occupational status: employed current occupation: [employer] Smoking Status: Never smoker alcohol intake: never substance use type: does not use ROS Constitutional Constitutional: Denies fatigue, fever(s), poor appetite, weight gain or weight loss Gastrointestinal Gastrointestinal: Denies belching, bloating, change in bowel habits, change in stool character, chewing difficulty, coffee ground emesis, constipation, cramping, diarrhea, dyspepsia, dysphagia, early satiety, excessive flatus, fecalincontinence, heartburn, hematemesis, hematochezia, hemorrhoids, loose stools, melena, nausea, odynophagia, rectal bleeding, tenesmus, vomiting or weight changes Vital Signs Vital Signs Vital Signs: 03/01/25 06:25 03/01/25 06:41 03/01/25 06:42 Temperature 97.7 F L 97.7 F L Temperature Source Temporal Pulse Rate 63 63 Respiratory Rate 16 16 Respiratory Pattern Normal Blood Pressure 160/89 H 160/89 H Blood Pressure Mean 112 Blood Pressure Source Monitor Blood Pressure Position Sitting Blood Pressure Location Left Arm Pulse Ox 98 98 Oxygen Delivery Method Room Air Room Air Weight Weight: 240 lb 4.862 oz Body Mass Index (BMI) 36.5 Physical Exam Const alert, oriented x3, no apparent distress and healthy appearing General Appearance: cooperative GI normal to inspection, nondistended, normoactive bowel sounds, soft to palpation,non-tender and non-distended Percussion: normal to percussion Rectal Exam: deferred Results Lab / Micro Data Labs: Laboratory Results - last 24 hr 03/01/25 06:21: POC Glucose 108 H Assessment & Plan Assessment/Plan (1) Celiac disease: PLAN: Assessment and Plan Assessment and Plan (1) Anemia: Status: Chronic Qualifiers: Anemia type: unspecified type Qualified Code(s): D64.9 - Anemia, unspecified Comment: Discussed causes of anemia and evaluation. (2) Iron deficiency: Status: Chronic Comment: Iron level is improving, now 62. Plan 64-year-old male referred by Dr. Chinchilla for evaluation of anemia. Labs completed 12/05/2024 reveal hemoglobin of 12.4. Colonoscopy revealed tubular adenomas June 2024. He denies any heartburn, nausea, vomiting, weight loss or pain. We have scheduled him for an EGD. His tissue transglutaminase came back elevated at 7. He knows that he was diagnosed with celiac disease in the past but had another doctor tell him that he did not have it so he has not been gluten-free. I suspect his celiac disease is contributing to iron absorption which leads to his low-grade anemia. We will fully evaluate him with biopsies and endoscopic evaluation in the near future. 03/01/25 0722 <Electronically signed by Mitchel Zuniga DO> Cosigner Signature (if applicable): CC: Dr. William Amado DO; Mitchel Zuniga DO~ Signed [facility] Work Phone: Reason for referral (narrative)* Diagnostic Procedure Only (Routine) - Authorized Specialty Diagnoses / Procedures Referred By Jose beatty Referred To Contact MR IMAGING Diagnoses Microadenoma Procedures MRI PITUITARY WO/W IVCON MRI BRAIN Dolly Duke APRN.CNP [address] [place] [address] Mr Imaging Referral ID Status Reason Start Date Expiration Date Visits Requested Visits Authorized [id number] Authorized Auto-Generat ed Referral 11/23/2020 12/22/2021 3 [facility]No reason for referral information availableWOhio[facility] Work Phone: Reason for visit Narrative* Diagnostic Procedure Only (Routine) - Authorized Specialty Diagnoses / Procedures Referred By Jose t Referred To Contact MR IMAGING Diagnoses Microadenoma Procedures MRI PITUITARY WO/W IVCON MRI BRAIN COMBO Dolly Lucas, MECHANIC [employer]PER[employer] TEST.STRATEGIC ACCOUNTS MANAGER [address] [place] [id number] Mr Imaging Referral ID Status Reason Start Date Expiration Date Visits Requested Visits Authorized [id number] Authorized Auto-Generat ed Referral 11/23/2020 12/22/2021 3 3 [facility] (Routine) - Closed Specialty Diagnoses / Procedures Referred By Jose beatty Referred To Contact MR IMAGING Diagnoses Other postprocedural endocrine and metabolic complications and disorders Procedures MRI PITUITARY WO/W IVCON MRI BRAIN BRAIN STEM W/O W/CONTRAST MATERIAL Dolly Lucas, MECHANIC GENER[employer]PERATIONAL TEST.STRATEGIC ACCOUNTS MANAGER [address] [facility] [place] [address] Phone: tel: fax: MR IMAGING [place] [address] Referral ID Status Reason Start Date Expiration Date V isits Requested Visits Authorized [id number] Closed Auto-Generate d Referral 12/22/2023 01/20/2025 1 1 [facility] Reason for Referral Specialty Diagnoses / Procedures Referred By Jose beatty Referred To Contact MR IMAGING Diagnoses Microadenoma Procedures MRI PITUITARY WO/W IVCON MRI BRAIN BRAIN STEM W/O W/CONTRAST MATERIAL Dolly Lucas, MECHANIC [employer]PERATIONAL TEST.STRATEGIC ACCOUNTS MANAGER [address] [place] [address] Mr Imaging Referral ID Status Reason Start Date Expiration Date Visits Requested Visits Authorized [id number] Pending Review Auto-Generat ed Referral 12/09/2021 01/08/2023 1 1 Specialty Diagnoses / Procedures Referred By Jose beatty Referred To Contact MR IMAGING Diagnoses Microadenoma Procedures MRI PITUITARY WO/W IVCON MRI BRAIN BRAIN STEM W/O W/CONTRAST MATERIAL Dolly Lucas, MECHANIC GENERAL [employer]PERATIONAL TEST.STRATEGIC ACCOUNTS MANAGER [address] [place] [address] Mr Imaging [id number] Referral ID Status Reason Start Date Expiration Date V isits Requested Visits Authorized [id number] Closed Auto-Generate d Referral 12/09/2021 01/08/2023 1 1 Specialty Diagnoses / Procedures Referred By Contac t Referred To Contact William Amado F, DO [address] [place] [address] Referral ID Status Reason Start Date Expiration Date Visits Re quested Visits Authorized [id number] Closed 1 1 Specialty Diagnoses / Procedures Referred By Contac t Referred To Contact MR IMAGING Diagnoses Pituitary adenoma (HCC) Procedures MRI PITUITARY WO/W IVCON MRI BRAIN BRAIN STEM W/O W/CONTRAST MATERIAL Misha Weaver MD [address] [place] [address] Mr Imaging [place] [address] Referral ID Status Reason Start Date Expiration Date V isits Requested Visits Authorized [id number] Closed Auto-Generate d Referral 03/17/2023 04/15/2024 1 1 Specialty Diagnoses / Procedures Referred By Contac t Referred To Contact MR IMAGING Diagnoses Other postprocedural endocrine and metabolic complications and disorders Procedures MRI PITUITARY WO/W IVCON MRI BRAIN BRAIN STEM W/O W/CONTRAST MATERIAL Dolly Lucas APRN.STRATEGIC ACCOUNTS MANAGER [address] [place] [address] Mr Imaging [place] [address] Referral ID Status Reason Start Date Expiration Date Visits Requested Visits Authorized [id number] Pending Review Auto-Generat ed Referral 12/22/2023 01/20/2025 1 1 Chief Complaint and Reason for Visit Chief Complaint Back pain Back pain Back pain Neck pain Back pain Back pain Reason for Visit Segmental and somati c dysfunction of cervical region Segmental and somatic dysfunction of lumbar region Segmental and somatic dysfunction of thoracic region Rheumatoid arthritis Segmental and somatic dysfunction of cervical region Segmental and somatic dysfunction of lumbar region Segmental and somatic dysfunction of pelvic region Segmental and somatic dysfunction of thoracic region Rheumatoid arthritis Segmental and somatic dysfunction of cervical region Segmental and somatic dysfunction of lumbar region Segmental and somatic dysfunction of pelvic region Segmental and somatic dysfunction of thoracic region Rheumatoid arthritis Segmental and somatic dysfunction of cervical region Segmental and somatic dysfunction of lumbar region Segmental and somatic dysfunction of pelvic region Segmental and somatic dysfunction of thoracic region Rheumatoid arthritis Segmental and somatic dysfunction of cervical region Segmental and somatic dysfunction of lumbar region Segmental and somatic dysfunction of pelvic region Segmental and somatic dysfunction of thoracic region Rheumatoid arthritis Segmental and somatic dysfunction of cervical region Segmental and somatic dysfunction of lumbar region Segmental and somatic dysfunction of pelvic region Segmental and somatic dysfunction of thoracic region Rheumatoid arthritis Chief Complaint Neck pain Back pain Back pain S/O EVERY 6 MONTHS/LAST DONE 11/24 Back pain 1 Y FU Back pain COPY TO PCP Reason for Visit Segmental and somati c dysfunction of cervical region Segmental and somatic dysfunction of lumbar region Segmental and somatic dysfunction of pelvic region Segmental and somatic dysfunction of thoracic region Rheumatoid arthritis Segmental and somatic dysfunction of cervical region Segmental and somatic dysfunction of lumbar region Segmental and somatic dysfunction of pelvic region Segmental and somatic dysfunction of thoracic region Rheumatoid arthritis Segmental and somatic dysfunction of cervical region Segmental and somatic dysfunction of lumbar region Segmental and somatic dysfunction of pelvic region Segmental and somatic dysfunction of thoracic region Rheumatoid arthritis Segmental and somatic dysfunction of cervical region Segmental and somatic dysfunction of lumbar region Segmental and somatic dysfunction of pelvic region Segmental and somatic dysfunction of thoracic region Rheumatoid arthritis Segmental and somatic dysfunction of cervical region Segmental and somatic dysfunction of lumbar region Segmental and somatic dysfunction of pelvic region Segmental and somatic dysfunction of thoracic region Rheumatoid arthritis Chief Complaint Back pain Back pain Back pain SINUS PREASURE Back pain Back pain Reason for Visit Segmental and somati c dysfunction of cervical region Segmental and somatic dysfunction of lumbar region Segmental and somatic dysfunction of pelvic region Segmental and somatic dysfunction of thoracic region Rheumatoid arthritis Segmental and somatic dysfunction of cervical region Segmental and somatic dysfunction of lumbar region Segmental and somatic dysfunction of pelvic region Segmental and somatic dysfunction of thoracic region Rheumatoid arthritis Segmental and somatic dysfunction of cervical region Segmental and somatic dysfunction of lumbar region Segmental and somatic dysfunction of pelvic region Segmental and somatic dysfunction of thoracic region Rheumatoid arthritis Acute sinusitis, unspecified Uncontrolled hypertension Segmental and somatic dysfunction of cervical region Segmental and somatic dysfunction of lumbar region Segmental and somatic dysfunction of pelvic region Segmental and somatic dysfunction of thoracic region Rheumatoid arthritis Segmental and somatic dysfunction of cervical region Segmental and somatic dysfunction of lumbar region Segmental and somatic dysfunction of pelvic region Segmental and somatic dysfunction of thoracic region Rheumatoid arthritis Chief Complaint Back pain Back pain Back pain SINUS PREASURE Back pain Back pain ELEVATED PSA Reason for Visit Segmental and somati c dysfunction of cervical region Segmental and somatic dysfunction of lumbar region Segmental and somatic dysfunction of pelvic region Segmental and somatic dysfunction of thoracic region Rheumatoid arthritis Segmental and somatic dysfunction of cervical region Segmental and somatic dysfunction of lumbar region Segmental and somatic dysfunction of pelvic region Segmental and somatic dysfunction of thoracic region Rheumatoid arthritis Segmental and somatic dysfunction of cervical region Segmental and somatic dysfunction of lumbar region Segmental and somatic dysfunction of pelvic region Segmental and somatic dysfunction of thoracic region Rheumatoid arthritis Acute sinusitis, unspecified Uncontrolled hypertension Segmental and somatic dysfunction of cervical region Segmental and somatic dysfunction of lumbar region Segmental and somatic dysfunction of pelvic region Segmental and somatic dysfunction of thoracic region Rheumatoid arthritis Segmental and somatic dysfunction of cervical region Segmental and somatic dysfunction of lumbar region Segmental and somatic dysfunction of pelvic region Segmental and somatic dysfunction of thoracic region Rheumatoid arthritis Chief Complaint Back pain Back pain SINUS PREASURE Back pain Back pain ELEVATED PSA Back pain Reason for Visit Segmental and somati c dysfunction of cervical region Segmental and somatic dysfunction of lumbar region Segmental and somatic dysfunction of pelvic region Segmental and somatic dysfunction of thoracic region Rheumatoid arthritis Segmental and somatic dysfunction of cervical region Segmental and somatic dysfunction of lumbar region Segmental and somatic dysfunction of pelvic region Segmental and somatic dysfunction of thoracic region Rheumatoid arthritis Acute sinusitis, unspecified Uncontrolled hypertension Segmental and somatic dysfunction of cervical region Segmental and somatic dysfunction of lumbar region Segmental and somatic dysfunction of pelvic region Segmental and somatic dysfunction of thoracic region Rheumatoid arthritis Segmental and somatic dysfunction of cervical region Segmental and somatic dysfunction of lumbar region Segmental and somatic dysfunction of pelvic region Segmental and somatic dysfunction of thoracic region Rheumatoid arthritis Segmental and somatic dysfunction of cervical region Segmental and somatic dysfunction of lumbar region Segmental and somatic dysfunction of pelvic region Segmental and somatic dysfunction of thoracic region Rheumatoid arthritis Chief Complaint Back pain 3 M FU Back pain Back pain 6 wk FU Reason for Visit Segmental and somati c dysfunction of cervical region Segmental and somatic dysfunction of lumbar region Segmental and somatic dysfunction of pelvic region Segmental and somatic dysfunction of thoracic region Rheumatoid arthritis History of pituitary surgery Secondary adrenal insufficiency Diabetes Secondary hypothyroidism Secondary male hypogonadism Segmental and somatic dysfunction of cervical region Segmental and somatic dysfunction of lumbar region Segmental and somatic dysfunction of pelvic region Segmental and somatic dysfunction of thoracic region Rheumatoid arthritis Segmental and somatic dysfunction of cervical region Segmental and somatic dysfunction of lumbar region Segmental and somatic dysfunction of pelvic region Segmental and somatic dysfunction of thoracic region Rheumatoid arthritis Secondary adrenal insufficiency Diabetes Hypertension Secondary male hypogonadism Chief Complaint BACK PAIN 3 M FU Back pain Back pain Back pain Back pain 3 M FU Reason for Visit Segmental and somati c dysfunction of cervical region Segmental and somatic dysfunction of lumbar region Segmental and somatic dysfunction of pelvic region Segmental and somatic dysfunction of thoracic region Rheumatoid arthritis Diabetes Hypertension Mixed hyperlipidemia Obesity Secondary adrenal insufficiency Secondary hypothyroidism Segmental and somatic dysfunction of cervical region Segmental and somatic dysfunction of lumbar region Segmental and somatic dysfunction of pelvic region Segmental and somatic dysfunction of thoracic region Rheumatoid arthritis Segmental and somatic dysfunction of cervical region Segmental and somatic dysfunction of lumbar region Segmental and somatic dysfunction of pelvic region Segmental and somatic dysfunction of thoracic region Rheumatoid arthritis Segmental and somatic dysfunction of cervical region Segmental and somatic dysfunction of lumbar region Segmental and somatic dysfunction of pelvic region Segmental and somatic dysfunction of thoracic region Rheumatoid arthritis Segmental and somatic dysfunction of cervical region Segmental and somatic dysfunction of lumbar region Segmental and somatic dysfunction of pelvic region Segmental and somatic dysfunction of thoracic region Rheumatoid arthritis Diabetes Hypertension Mixed hyperlipidemia Obesity Secondary adrenal insufficiency Secondary hypothyroidism Secondary male hypogonadism Chief Complaint Admit Date Back pain August 23, 2024 5:25pm Back pain September 20, 2024 5 :24pm Back pain October 18, 2024 5:25pm BACK PAIN November 15, 2024 4:5 6pm Amb Documentation November 20, 2024 4:2 6pm Reason for Visit Admit Date Segmental and somatic dysfunction of cer vical region August 23, 2024 5:25pm Segmental and somatic dysfunction of lum bar region August 23, 2024 5:25pm Segmental and somatic dysfunction of pel chuy region August 23, 2024 5:25pm Segmental and somatic dysfunction of tho racic region August 23, 2024 5:25pm DJD (degenerative joint disease), lumbar August 23, 2024 5:25pm Rheumatoid arthritis August 23, 2024 5:25pm Back pain September 20, 2024 5 :24pm Segmental and somatic dysfunction of cer vical region September 20, 2024 5:24pm Segmental and somatic dysfunction of lum bar region September 20, 2024 5:24pm Segmental and somatic dysfunction of pel chuy region September 20, 2024 5:24pm Segmental and somatic dysfunction of tho racic region September 20, 2024 5:24pm Rheumatoid arthritis September 20, 2024 5:24pm Segmental and somatic dysfunction of cer vical region October 18, 2024 5:25pm Segmental and somatic dysfunction of lum bar region October 18, 2024 5:25pm Segmental and somatic dysfunction of pel chuy region October 18, 2024 5:25pm Segmental and somatic dysfunction of tho racic region October 18, 2024 5:25pm DJD (degenerative joint disease), lumbar October 18, 2024 5:25pm Back pain November 15, 2024 4:5 6pm Segmental and somatic dysfunction of cer vical region November 15, 2024 4:56pm Segmental and somatic dysfunction of lum bar region November 15, 2024 4:56pm Segmental and somatic dysfunction of pel chuy region November 15, 2024 4:56pm Segmental and somatic dysfunction of tho racic region November 15, 2024 4:56pm DJD (degenerative joint disease), lumbar November 15, 2024 4:56pm Chief Complaint Admit Date Back pain August 23, 2024 5:25pm Back pain September 20, 2024 5 :24pm Back pain October 18, 2024 5:25pm BACK PAIN November 15, 2024 4:5 6pm Amb Documentation November 20, 2024 4:2 6pm Anemia December 05, 2024 1:49 pm MED ONC December 05, 2024 2:40 pm E-ORDER December 06, 2024 9:58 am Reason for Visit Admit Date Segmental and somatic dysfunction of cer vical region August 23, 2024 5:25pm Segmental and somatic dysfunction of lum bar region August 23, 2024 5:25pm Segmental and somatic dysfunction of pel chuy region August 23, 2024 5:25pm Segmental and somatic dysfunction of tho racic region August 23, 2024 5:25pm DJD (degenerative joint disease), lumbar August 23, 2024 5:25pm Rheumatoid arthritis August 23, 2024 5:25pm Back pain September 20, 2024 5 :24pm Segmental and somatic dysfunction of cer vical region September 20, 2024 5:24pm Segmental and somatic dysfunction of lum bar region September 20, 2024 5:24pm Segmental and somatic dysfunction of pel chuy region September 20, 2024 5:24pm Segmental and somatic dysfunction of tho racic region September 20, 2024 5:24pm Rheumatoid arthritis September 20, 2024 5:24pm Segmental and somatic dysfunction of cer vical region October 18, 2024 5:25pm Segmental and somatic dysfunction of lum bar region October 18, 2024 5:25pm Segmental and somatic dysfunction of pel chuy region October 18, 2024 5:25pm Segmental and somatic dysfunction of tho racic region October 18, 2024 5:25pm DJD (degenerative joint disease), lumbar October 18, 2024 5:25pm Back pain November 15, 2024 4:5 6pm Segmental and somatic dysfunction of cer vical region November 15, 2024 4:56pm Segmental and somatic dysfunction of lum bar region November 15, 2024 4:56pm Segmental and somatic dysfunction of pel chuy region November 15, 2024 4:56pm Segmental and somatic dysfunction of tho racic region November 15, 2024 4:56pm DJD (degenerative joint disease), lumbar November 15, 2024 4:56pm Anemia December 05, 2024 1:49 pm Chief Complaint Admit Date Back pain September 20, 2024 5 :24pm Back pain October 18, 2024 5:25pm BACK PAIN November 15, 2024 4:5 6pm Amb Documentation November 20, 2024 4:2 6pm Anemia December 05, 2024 1:49 pm MED ONC December 05, 2024 2:40 pm E-ORDER December 06, 2024 9:58 am [facility] PRIOR December 13, 2024 8:5 2am CONSULT UPPER GI ENDOSCOPY December 20, 2 025 2:20pm BACK PAIN December 20, 2024 5:2 2pm LABS December 29, 2024 9:4 4am R71.8 Other abnormality of red blood asad ls January 04, 2025 3:10pm [facility] PRIOR REVIEW CT January 09, 2025 1:22pm Reason for Visit Admit Date Back pain September 20, 2024 5 :24pm Segmental and somatic dysfunction of cer vical region September 20, 2024 5:24pm Segmental and somatic dysfunction of lum bar region September 20, 2024 5:24pm Segmental and somatic dysfunction of pel chuy region September 20, 2024 5:24pm Segmental and somatic dysfunction of tho racic region September 20, 2024 5:24pm Rheumatoid arthritis September 20, 2024 5:24pm Segmental and somatic dysfunction of cer vical region October 18, 2024 5:25pm Segmental and somatic dysfunction of lum bar region October 18, 2024 5:25pm Segmental and somatic dysfunction of pel chuy region October 18, 2024 5:25pm Segmental and somatic dysfunction of tho racic region October 18, 2024 5:25pm DJD (degenerative joint disease), lumbar October 18, 2024 5:25pm Back pain November 15, 2024 4:5 6pm Segmental and somatic dysfunction of cer vical region November 15, 2024 4:56pm Segmental and somatic dysfunction of lum bar region November 15, 2024 4:56pm Segmental and somatic dysfunction of pel chuy region November 15, 2024 4:56pm Segmental and somatic dysfunction of tho racic region November 15, 2024 4:56pm DJD (degenerative joint disease), lumbar November 15, 2024 4:56pm Anemia December 05, 2024 1:49 pm High serum erythropoietin December 13 8:52am Anemia December 13, 2024 8:5 2am Iron deficiency December 13, 2024 8:5 2am Iron deficiency December 20, 2024 2:2 0pm Back pain December 20, 2024 5:2 2pm Segmental and somatic dysfunction of cer vical region December 20, 2024 5:22pm Segmental and somatic dysfunction of lum bar region December 20, 2024 5:22pm Segmental and somatic dysfunction of pel chuy region December 20, 2024 5:22pm Segmental and somatic dysfunction of tho racic region December 20, 2024 5:22pm Rheumatoid arthritis December 20, 2024 5: 22pm Celiac disease January 09, 2025 1:22pm High serum erythropoietin January 09, 2025 1:22pm Anemia January 09, 2025 1:22pm Iron deficiency January 09, 2025 1:22pm Chief Complaint Admit Date BACK PAIN November 15, 2024 4:5 6pm Amb Documentation November 20, 2024 4:2 6pm Anemia December 05, 2024 1:49 pm MED ONC December 05, 2024 2:40 pm E-ORDER December 06, 2024 9:58 am [facility] PRIOR December 13, 2024 8:5 2am CONSULT UPPER GI ENDOSCOPY December 20, 2 025 2:20pm BACK PAIN December 20, 2024 5:2 2pm LABS December 29, 2024 9:4 4am R71.8 Other abnormality of red blood asad ls January 04, 2025 3:10pm [facility] PRIOR REVIEW CT January 09, 2025 1:22pm Anemia January 10, 2025 10:50a m BACK PAIN January 24, 2025 5:23p m 6 M FU February 21, 2025 3:59 pm BACK PAIN February 21, 2025 5:26 pm Reason for Visit Admit Date Back pain November 15, 2024 4:5 6pm Segmental and somatic dysfunction of cer vical region November 15, 2024 4:56pm Segmental and somatic dysfunction of lum bar region November 15, 2024 4:56pm Segmental and somatic dysfunction of pel chuy region November 15, 2024 4:56pm Segmental and somatic dysfunction of tho racic region November 15, 2024 4:56pm DJD (degenerative joint disease), lumbar November 15, 2024 4:56pm Anemia December 05, 2024 1:49 pm High serum erythropoietin December 13 8:52am Anemia December 13, 2024 8:5 2am Iron deficiency December 13, 2024 8:5 2am Iron deficiency December 20, 2024 2:2 0pm Back pain December 20, 2024 5:2 2pm Segmental and somatic dysfunction of cer vical region December 20, 2024 5:22pm Segmental and somatic dysfunction of lum bar region December 20, 2024 5:22pm Segmental and somatic dysfunction of pel chuy region December 20, 2024 5:22pm Segmental and somatic dysfunction of tho racic region December 20, 2024 5:22pm Rheumatoid arthritis December 20, 2024 5: 22pm Celiac disease January 09, 2025 1:22pm High serum erythropoietin January 09, 2025 1:22pm Anemia January 09, 2025 1:22pm Iron deficiency January 09, 2025 1:22pm Anemia January 10, 2025 10:50a m Iron deficiency January 10, 2025 10:50a m Back pain January 24, 2025 5:23p m Segmental and somatic dysfunction of cer vical region January 24, 2025 5:23pm Segmental and somatic dysfunction of lum bar region January 24, 2025 5:23pm Segmental and somatic dysfunction of pel chuy region January 24, 2025 5:23pm Segmental and somatic dysfunction of tho racic region January 24, 2025 5:23pm Rheumatoid arthritis January 24, 2025 5:23 pm Segmental and somatic dysfunction of cer vical region February 21, 2025 5:26pm Segmental and somatic dysfunction of lum bar region February 21, 2025 5:26pm Segmental and somatic dysfunction of tho racic region February 21, 2025 5:26pm Reason for Visit Admit Date Back pain November 15, 2024 4:5 6pm Segmental and somatic dysfunction of cer vical region November 15, 2024 4:56pm Segmental and somatic dysfunction of lum bar region November 15, 2024 4:56pm Segmental and somatic dysfunction of pel chuy region November 15, 2024 4:56pm Segmental and somatic dysfunction of tho racic region November 15, 2024 4:56pm DJD (degenerative joint disease), lumbar November 15, 2024 4:56pm Anemia December 05, 2024 1:49 pm High serum erythropoietin December 13 8:52am Anemia December 13, 2024 8:5 2am Iron deficiency December 13, 2024 8:5 2am Iron deficiency December 20, 2024 2:2 0pm Back pain December 20, 2024 5:2 2pm Segmental and somatic dysfunction of cer vical region December 20, 2024 5:22pm Segmental and somatic dysfunction of lum bar region December 20, 2024 5:22pm Segmental and somatic dysfunction of pel chuy region December 20, 2024 5:22pm Segmental and somatic dysfunction of tho racic region December 20, 2024 5:22pm Rheumatoid arthritis December 20, 2024 5: 22pm Celiac disease January 09, 2025 1:22pm High serum erythropoietin January 09, 2025 1:22pm Anemia January 09, 2025 1:22pm Iron deficiency January 09, 2025 1:22pm Anemia January 10, 2025 10:50a m Iron deficiency January 10, 2025 10:50a m Back pain January 24, 2025 5:23p m Segmental and somatic dysfunction of cer vical region January 24, 2025 5:23pm Segmental and somatic dysfunction of lum bar region January 24, 2025 5:23pm Segmental and somatic dysfunction of pel chuy region January 24, 2025 5:23pm Segmental and somatic dysfunction of tho racic region January 24, 2025 5:23pm Rheumatoid arthritis January 24, 2025 5:23 pm Diabetes February 21, 2025 3:59 pm Hypertension February 21, 2025 3:59 pm Mixed hyperlipidemia February 21, 2025 3:5 9pm Obesity February 21, 2025 3:59 pm Secondary adrenal insufficiency February 3:59pm Secondary hypothyroidism February 21, 2025 3:59pm Back pain February 21, 2025 5:26 pm Segmental and somatic dysfunction of cer vical region February 21, 2025 5:26pm Segmental and somatic dysfunction of lum bar region February 21, 2025 5:26pm Segmental and somatic dysfunction of pel chuy region February 21, 2025 5:26pm Segmental and somatic dysfunction of tho racic region February 21, 2025 5:26pm Rheumatoid arthritis February 21, 2025 5:2 6pm Celiac disease March 01, 2025 5:55 am Chief Complaint Admit Date BACK PAIN November 15, 2024 4:5 6pm Amb Documentation November 20, 2024 4:2 6pm Anemia December 05, 2024 1:49 pm MED ONC December 05, 2024 2:40 pm E-ORDER December 06, 2024 9:58 am [facility] PRIOR December 13, 2024 8:5 2am CONSULT UPPER GI ENDOSCOPY December 20, 2 025 2:20pm BACK PAIN December 20, 2024 5:2 2pm LABS December 29, 2024 9:4 4am R71.8 Other abnormality of red blood asad ls January 04, 2025 3:10pm [facility] PRIOR REVIEW CT January 09, 2025 1:22pm Anemia January 10, 2025 10:50a m BACK PAIN January 24, 2025 5:23p m 6 M FU February 21, 2025 3:59 pm BACK PAIN February 21, 2025 5:26 pm Test Result March 12, 2025 9:27a m Chief Complaint Admit Date Anemia December 05, 2024 1:49 pm MED ONC December 05, 2024 2:40 pm E-ORDER December 06, 2024 9:58 am [facility] PRIOR December 13, 2024 8:5 2am CONSULT UPPER GI ENDOSCOPY December 20, 2 025 2:20pm BACK PAIN December 20, 2024 5:2 2pm LABS December 29, 2024 9:4 4am R71.8 Other abnormality of red blood asad ls January 04, 2025 3:10pm [facility] PRIOR REVIEW CT January 09, 2025 1:22pm Anemia January 10, 2025 10:50a m BACK PAIN January 24, 2025 5:23p m 6 M FU February 21, 2025 3:59 pm BACK PAIN February 21, 2025 5:26 pm Test Result March 12, 2025 9:27a m BACK PAIN March 28, 2025 5:24 pm Reason for Visit Admit Date Anemia December 05, 2024 1:49 pm High serum erythropoietin December 13 8:52am Anemia December 13, 2024 8:5 2am Iron deficiency December 13, 2024 8:5 2am Iron deficiency December 20, 2024 2:2 0pm Back pain December 20, 2024 5:2 2pm Segmental and somatic dysfunction of cer vical region December 20, 2024 5:22pm Segmental and somatic dysfunction of lum bar region December 20, 2024 5:22pm Segmental and somatic dysfunction of pel chuy region December 20, 2024 5:22pm Segmental and somatic dysfunction of tho racic region December 20, 2024 5:22pm Rheumatoid arthritis December 20, 2024 5: 22pm Celiac disease January 09, 2025 1:22pm High serum erythropoietin January 09, 2025 1:22pm Anemia January 09, 2025 1:22pm Iron deficiency January 09, 2025 1:22pm Anemia January 10, 2025 10:50a m Iron deficiency January 10, 2025 10:50a m Back pain January 24, 2025 5:23p m Segmental and somatic dysfunction of cer vical region January 24, 2025 5:23pm Segmental and somatic dysfunction of lum bar region January 24, 2025 5:23pm Segmental and somatic dysfunction of pel chuy region January 24, 2025 5:23pm Segmental and somatic dysfunction of tho racic region January 24, 2025 5:23pm Rheumatoid arthritis January 24, 2025 5:23 pm Diabetes February 21, 2025 3:59 pm Hypertension February 21, 2025 3:59 pm Mixed hyperlipidemia February 21, 2025 3:5 9pm Obesity February 21, 2025 3:59 pm Secondary adrenal insufficiency February 3:59pm Secondary hypothyroidism February 21, 2025 3:59pm Back pain February 21, 2025 5:26 pm Segmental and somatic dysfunction of cer vical region February 21, 2025 5:26pm Segmental and somatic dysfunction of lum bar region February 21, 2025 5:26pm Segmental and somatic dysfunction of pel chuy region February 21, 2025 5:26pm Segmental and somatic dysfunction of tho racic region February 21, 2025 5:26pm Rheumatoid arthritis February 21, 2025 5:2 6pm Celiac disease March 01, 2025 5:55 am Pancreatic calcification March 12, 2025 9:27am Anemia March 12, 2025 9:27a m Iron deficiency March 12, 2025 9:27a m Segmental and somatic dysfunction of cer vical region March 28, 2025 5:24pm Segmental and somatic dysfunction of lum bar region March 28, 2025 5:24pm Segmental and somatic dysfunction of tho racic region March 28, 2025 5:24pm Family History No Family History Records Found Relationship Condition Age at Onset Recorded Date/T lila mother Malignant neoplasm Unknown Hypertension Unknown father Diabetes mellitus Unknown Relationship Condition Age at Onset Recorded Date/T lila mother Malignant neoplasm Unknown Hypertension Unknown father Diabetes mellitus Unknown Malignant neoplasm of prostate Unknown Cardiac disease Unknown Relationship Condition Age at Onset Recorded Date/T lila mother Malignant neoplasm Unknown Hypertension Unknown father Diabetes mellitus Unknown Malignant neoplasm of prostate Unknown Cardiac disease Unknown High blood cholesterol Unknown Advance Directives No Advanced Directives Records Found Advance Directive Response Recorded Date/ Time Advance Directives Yes December 21 11:40pm Living Will Yes June 10 12:15pm Power of Plant And Instrument Engineer Yes June 10 12:15pm Advance Directive Response Recorded Date/ Time Advance Directives Yes December 21 10:40pm Living Will Yes June 10 11:15am Power of Plant And Instrument Engineer Yes June 10 11:15am Advance Directive Response Recorded Date/ Time Advance Directives Yes March 31 3:51pm Living Will Yes March 31, 2023 3:51pm Power of Plant And Instrument Engineer Yes March 31 3:51pm Advance Directive Response Recorded Date/ Time Living Will Yes June 14 10:55am Do you have a Healthcare Power of Plant And Instrument Engineer? Yes June 14, 2024 10:55am Advance Directives Yes March 31 3:51pm Advance Directive Response Recorded Date/ Time Advance Directives Yes March 31 3:51pm Advance Directive Response Recorded Date/ Time Do you have a Healthcare Power of Plant And Instrument Engineer? Yes February 27, 2025 4:15pm Advance Directives Yes March 31 3:51pm Summary Purpose Additional Source Comments Source Comments (unrecognize d section and content) In the event this informatio n is protected by the Federal Confidentiality of Alcohol and Drug Abuse Patient Records regulations: The Federal rules restrict any use of the information to criminally investigate or prosecute any alcohol or drug abuse patient.[facility] the event this information is protected by the Federal Confidentiality of Alcohol and Drug Abuse Patient Records regulations: The Federal rules restrict any use of the information to criminally investigate or prosecute any alcohol or drug abuse patient.[facility] CenterIn the event this information is protected by the Federal Confidentiality of Alcohol and Drug Abuse Patient Records regulations: The Federal rules restrict any use of the information to criminally investigate or prosecute any alcohol or drug abuse patient.[facility] the event this information is protected by the Federal Confidentiality of Alcohol and Drug Abuse Patient Records regulations: The Federal rules restrict any use of the information to criminally investigate or prosecute any alcohol or drug abuse patient.[facility] the event this information is protected by the Federal Confidentiality of Alcohol and Drug Abuse Patient Records regulations: The Federal rules restrict any use of the information to criminally investigate or prosecute any alcohol or drug abuse patient.[facility] Center[facility] the event this information is protected by the Federal Confidentiality of Alcohol and Drug Abuse Patient Records regulations: The Federal rules restrict any use of the information to criminally investigate or prosecute any alcohol or drug abuse patient.[facility] Center[facility] the event this information is protected by the Federal Confidentiality of Alcohol and Drug Abuse Patient Records regulations: The Federal rules restrict any use of the information to criminally investigate or prosecute any alcohol or drug abuse patient.[facility] the event this information is protected by the Federal Confidentiality of Alcohol and Drug Abuse Patient Records regulations: The Federal rules restrict any use of the information to criminally investigate or prosecute any alcohol or drug abuse patient.[facility]In the event this information is protected by the Federal Confidentiality of Alcohol and Drug Abuse Patient Records regulations: The Federal rules restrict any use of the information to criminally investigate or prosecute any alcohol or drug abuse patient.[facility]In the event this information is protected by the Federal Confidentiality of Alcohol and Drug Abuse Patient Records regulations: The Federal rules restrict any use of the information to criminally investigate or prosecute any alcohol or drug abuse patient.[facility] the event this information is protected by the Federal Confidentiality of Alcohol and Drug Abuse Patient Records regulations: The Federal rules restrict any use of the information to criminally investigate or prosecute any alcohol or drug abuse patient.[facility] the event this information is protected by the Federal Confidentiality of Alcohol and Drug Abuse Patient Records regulations: The Federal rules restrict any use of the information to criminally investigate or prosecute any alcohol or drug abuse patient.[facility] Center[facility] the event this information is protected by the Federal Confidentiality of Alcohol and Drug Abuse Patient Records regulations: The Federal rules restrict any use of the information to criminally investigate or prosecute any alcohol or drug abuse patient.[facility]In the event this information is protected by the Federal Confidentiality of Alcohol and Drug Abuse Patient Records regulations: The Federal rules restrict any use of the information to criminally investigate or prosecute any alcohol or drug abuse patient.[facility] CenterIn the event this information is protected by the Federal Confidentiality of Alcohol and Drug Abuse Patient Records regulations: The Federal rules restrict any use of the information to criminally investigate or prosecute any alcohol or drug abuse patient.[facility] CenterIn the event this information is protected by the Federal Confidentiality of Alcohol and Drug Abuse Patient Records regulations: The Federal rules restrict any use of the information to criminally investigate or prosecute any alcohol or drug abuse patient.[facility] CenterIn the event this information is protected by the Federal Confidentiality of Alcohol and Drug Abuse Patient Records regulations: The Federal rules restrict any use of the information to criminally investigate or prosecute any alcohol or drug abuse patient.[facility] CenterIn the event this information is protected by the Federal Confidentiality of Alcohol and Drug Abuse Patient Records regulations: The Federal rules restrict any use of the information to criminally investigate or prosecute any alcohol or drug abuse patient.[facility] CenterIn the event this information is protected by the Federal Confidentiality of Alcohol and Drug Abuse Patient Records regulations: The Federal rules restrict any use of the information to criminally investigate or prosecute any alcohol or drug abuse patient.[facility] CenterIn the event this information is protected by the Federal Confidentiality of Alcohol and Drug Abuse Patient Records regulations: The Federal rules restrict any use of the information to criminally investigate or prosecute any alcohol or drug abuse patient.[facility] CenterIn the event this information is protected by the Federal Confidentiality of Alcohol and Drug Abuse Patient Records regulations: The Federal rules restrict any use of the information to criminally investigate or prosecute any alcohol or drug abuse patient.[facility] CenterIn the event this information is protected by the Federal Confidentiality of Alcohol and Drug Abuse Patient Records regulations: The Federal rules restrict any use of the information to criminally investigate or prosecute any alcohol or drug abuse patient.[facility] CenterIn the event this information is protected by the Federal Confidentiality of Alcohol and Drug Abuse Patient Records regulations: The Federal rules restrict any use of the information to criminally investigate or prosecute any alcohol or drug abuse patient.[facility] CenterIn the event this information is protected by the Federal Confidentiality of Alcohol and Drug Abuse Patient Records regulations: The Federal rules restrict any use of the information to criminally investigate or prosecute any alcohol or drug abuse patient.[facility] CenterIn the event this information is protected by the Federal Confidentiality of Alcohol and Drug Abuse Patient Records regulations: The Federal rules restrict any use of the information to criminally investigate or prosecute any alcohol or drug abuse patient.[facility] CenterIn the event this information is protected by the Federal Confidentiality of Alcohol and Drug Abuse Patient Records regulations: The Federal rules restrict any use of the information to criminally investigate or prosecute any alcohol or drug abuse patient.[facility] Care Teams (unrecognized sec tion and content) Journeyman Glazier Relationship Specialty Start Date End Date William Amado PCP - General Family Practice 03/24/11 Journeyman Glazier Relationship Specialty Start Date End Date William Amado PCP - General Family Practice 03/24/11 Team Status: Active Member Role Status Dates Dr. William Amado DO Family Provider Active Dr. William Amado , DO Primary Care Provider Active Team Status: Inactive Member Role Status Dates Dr. William Amado DO Primary Care Provider, Referr ing Provider Active Dr. Ivette Lai DC Attending Provider Active Team Status: Inactive Member Role Status Dates Dr. William Amado DO Primary Care Provider, Referr ing Provider Active Theodore Ayon PA, PA Attending Provider Active Team Status: Inactive Member Role Status Dates Dr. William Amado DO Primary Care Provider Active Dr. Monika Lovett MD Attending Provider, Referring Provi casandra Active Team Status: Inactive Member Role Status Dates Dr. William Amado DO Primary Care Provider Active Dr. Phani Lutz MD Attending Provider Active Team Status: Inactive Member Role Status Dates Dr. William Amado DO Primary Care Provider Active RIO CooleyC Attending Provider Active Team Status: Inactive Member Role Status Dates Dr. William Amado DO Primary Care Provider Active Dr. Argenis Varela MD Attending Provider Active Journeyman Glazier Relationship Specialty Start Date End Date William Amado PCP - General Family Medicine 03/24/11 Journeyman Glazier Relationship Specialty Start Date End Date William Amado PCP - General Family Medicine 03/24/11 Journeyman Glazier Relationship Specialty Start Date End Date William Amado DO [address] [place] [address] PCP - General 05/07/15 Journeyman Glazier Relationship Specialty Start Date End Date William Amado PCP - General Family Medicine 03/24/11 Journeyman Glazier Relationship Specialty Start Date End Date William Amado PCP - General Family Medicine 03/24/11 Journeyman Glazier Relationship Specialty Start Date End Date William Amado PCP - General Family Medicine 03/24/11 Journeyman Glazier Relationship Specialty Start Date End Date William Amado PCP - General Family Medicine 03/24/11 Journeyman Glazier Relationship Specialty Start Date End Date William Amado PCP - General Family Medicine 03/24/11 Journeyman Glazier Relationship Specialty Start Date End Date William Amado PCP - General Family Medicine 03/24/11 Kameron Segal [address] [place] [address] Ophthalmology 03/17/23 Journeyman Glazier Relationship Specialty Start Date End Date William Amado PCP - General Family Medicine 03/24/11 Kameron Segal [address] [place] [address] Ophthalmology 03/17/23 Journeyman Glazier Relationship Specialty Start Date End Date William Amado PCP - General Family Medicine 03/24/11 Kameron Segal [address] [place] [address] Ophthalmology 03/17/23 Journeyman Glazier Relationship Specialty Start Date End Date William Amado PCP - General Family Medicine 03/24/11 Kameron Segal [address] [place] [address] Ophthalmology 03/17/23 Journeyman Glazier Relationship Specialty Start Date End Date William Amado PCP - General Family Medicine 03/24/11 Kameron Segal [address] [place] [address] Ophthalmology 03/17/23 Journeyman Glazier Relationship Specialty Start Date End Date William Amado Catina PCP - General Family Medicine 03/24/11 Kameron Segal [address] [place] [address] Ophthalmology 03/17/23 Team Status: Inactive Member Role Status Dates Dr. William Amado , DO Primary Care Provider, Referr ing Provider Active Dr. Monika Lovett MD Attending Provider Active Team Status: Inactive Member Role Status Dates Dr. William Amado , DO Primary Care Provider Active Dr. Argenis Varela MD Attending Provider, Referring Provider Active Journeyman Glazier Relationship Specialty Start Date End Date William Amado PCP - General Family Medicine 03/24/11 Kameron Segal MD [address] [place] [address] Ophthalmology 03/17/23 Journeyman Glazier Relationship Specialty Start Date End Date William Amado PCP - General Family Medicine 03/24/11 Journeyman Glazier Relationship Specialty Start Date End Date AneudyWilliam DO [address] [place] [id number] PCP - General 05/07/15 Journeyman Glazier Relationship Specialty Start Date End Date AneudyWilliam DO [address] [place] [id number] PCP - General 05/07/15 Journeyman Glazier Relationship Specialty Start Date End Date Wliliam Amado DO Catina PCP - General Family Medicine 03/24/11 Kameron Segal MD [address] [place], [place] [id number] Ophthalmology 03/17/23 Journeyman Glazier Relationship Specialty Start Date End Date William Amado Catina PCP - General Family Medicine 03/24/11 Kameron Segal MD [address] [place], [place] [id number] Ophthalmology 03/17/23 Team Status: Inactive Member Role Status Dates Dr. William Amado DO Primary Care Provider Active Dr. Phani Lutz MD Attending Provider, Referr ing Provider Active Journeyman Glazier Relationship Specialty Start Date End Date William Amado Catina PCP - General Family Medicine 03/24/11 Kameron Segal MD [address] [place] [address] Ophthalmology 03/17/23 Journeyman Glazier Relationship Specialty Start Date End Date William Amado FDO [address] [place] [address] PCP - General 05/07/15 Journeyman Glazier Relationship Specialty Start Date End Date NbaWilliam moon [address] [place] [address] PCP - General 05/07/15 Journeyman Glazier Relationship Specialty Start Date End Date AneudyWilliamDO PCP - General Family Medicine 03/24/11 Kameron Segal MD [address] [place], [place] [id number] Ophthalmology 03/17/23 Journeyman Glazier Relationship Specialty Start Date End Date AneudyWilliamDO PCP - General Family Medicine 03/24/11 Kameron Segal MD [address] [place] [address] Ophthalmology 03/17/23 Journeyman Glazier Relationship Specialty Start Date End Date AneudyWilliamDO [address] [place] [address] PCP - General 05/07/15 Journeyman Glazier Relationship Specialty Start Date End Date Aneudy William DominiqueDO [address] [place] [id number] PCP - General 05/07/15 Journeyman Glazier Relationship Specialty Start Date End Date Aneudy William DominiqueDO [address] [place] [address] PCP - General 05/07/15 Journeyman Glazier Relationship Specialty Start Date End Date William Amado Catina [address] [place] [address] PCP - General 05/07/15 Team Status: Active Member Role Status Dates Dr. William Amado DO Primary Care Provider Active Team Status: Inactive Member Role Status Dates Dr. William Amado DO Primary Care Provider Active Start: August 03, 2024 End: August 03, 2024 RENETTA JESUS MD Attending Provider Active S tart: August 03, 2024 End: August 03, 2024 RENETTA JESUS MD Referring Provider Active S tart: August 03, 2024 End: August 03, 2024 Team Status: Inactive Member Role Status Dates Dr. William Amado DO Primary Care Provider Active Start: August 23, 2024 End: August 23, 2024 Dr. William Amado DO Referring Provider Active Start: August 23, 2024 End: August 23, 2024 Dr. Ivette Lai DC Attending Provider Active S tart: August 23, 2024 End: August 23, 2024 Team Status: Inactive Member Role Status Dates Dr. William Amado DO Primary Care Provider Active Start: September 15, 2024 End: September 15, 2024 RENETTA JESUS MD Attending Provider Active S tart: September 15, 2024 End: September 15, 2024 RENETTA JESUS MD Referring Provider Active S tart: September 15, 2024 End: September 15, 2024 Team Status: Inactive Member Role Status Dates Dr. William Amado DO Primary Care Provider Active Start: September 20, 2024 End: September 20, 2024 Dr. William Amado DO Referring Provider Active Start: September 20, 2024 End: September 20, 2024 Dr. Ivette Lai DC Attending Provider Active S tart: September 20, 2024 End: September 20, 2024 Team Status: Inactive Member Role Status Dates Dr. William Amado DO Primary Care Provider Active Start: October 18, 2024 End: October 18, 2024 Dr. William Amado DO Referring Provider Active Start: October 18, 2024 End: October 18, 2024 Dr. Ivette Lai DC Attending Provider Active S tart: October 18, 2024 End: October 18, 2024 Team Status: Inactive Member Role Status Dates Dr. William Amado DO Primary Care Provider Active Start: October 27, 2024 End: October 27, 2024 Dr. William Amado DO Attending Provider Active Start: October 27, 2024 End: October 27, 2024 Dr. William Amado DO Referring Provider Active Start: October 27, 2024 End: October 27, 2024 Team Status: Inactive Member Role Status Dates Dr. William Amado DO Primary Care Provider Active Start: November 15, 2024 End: November 15, 2024 Dr. William Amado DO Referring Provider Active Start: November 15, 2024 End: November 15, 2024 Dr. Ivette Lai DC Attending Provider Active S tart: November 15, 2024 End: November 15, 2024 Team Status: Inactive Member Role Status Dates Dr. William Amado DO Primary Care Provider Active Start: November 17, 2024 End: November 17, 2024 DENIZ BELL Attending Provider Active Start : November 17, 2024 End: November 17, 2024 DENIZ BELL Referring Provider Active Start : November 17, 2024 End: November 17, 2024 Team Status: Active Member Role Status Dates Dr. William Amado DO Primary Care Provider Active Start: November 20, 2024 Estephania Scott Attending Provider Active Start: November 20, 2024 Team Status: Inactive Member Role Status Dates Dr. William Amado DO Primary Care Provider Active Start: December 05, 2024 End: December 05, 2024 Dr. William Amado DO Referring Provider Active Start: December 05, 2024 End: December 05, 2024 Dr. James Chinchilla MD Attending Provider Active S tart: December 05, 2024 End: December 05, 2024 Team Status: Active Member Role Status Dates Dr. William Amado DO Primary Care Provider Active Start: December 05, 2024 Dr. James Chinchilla MD Attending Provider Active S tart: December 05, 2024 Dr. James Chinchilla MD Referring Provider Active S tart: December 05, 2024 Team Status: Inactive Member Role Status Dates Dr. William Amado DO Primary Care Provider Active Start: December 06, 2024 End: December 06, 2024 Dr. James Chinchilla MD Attending Provider Active S tart: December 06, 2024 End: December 06, 2024 Dr. James Chinchilla MD Referring Provider Active S tart: December 06, 2024 End: December 06, 2024 Journeyman Glazier Relationship Specialty Start Date End Date William Amado DO PCP - General Family Medicine 03/24/11 Kameron Segal MD [address] [place] [address] Ophthalmology 03/17/23 Team Status: Inactive Member Role Status Dates Dr. William Amado DO Primary Care Provider Active Start: December 13, 2024 End: December 13, 2024 Dr. William Amado DO Referring Provider Active Start: December 13, 2024 End: December 13, 2024 Dr. James Chinchilla MD Attending Provider Active S tart: December 13, 2024 End: December 13, 2024 Team Status: Inactive Member Role Status Dates Dr. William Amado DO Primary Care Provider Active Start: December 20, 2024 End: December 20, 2024 Dr. William Amado DO Referring Provider Active Start: December 20, 2024 End: December 20, 2024 Rayna Mills NP-C Attending Provider Active Start: December 20, 2024 End: December 20, 2024 Team Status: Inactive Member Role Status Dates Dr. William Amado DO Primary Care Provider Active Start: December 20, 2024 End: December 20, 2024 Dr. William Amado DO Referring Provider Active Start: December 20, 2024 End: December 20, 2024 Dr. Ivette Lai DC Attending Provider Active S tart: December 20, 2024 End: December 20, 2024 Team Status: Inactive Member Role Status Dates Dr. William Amado DO Primary Care Provider Active Start: December 29, 2024 End: December 29, 2024 Dr. Phani Lutz MD Attending Provider Active Start: December 29, 2024 End: December 29, 2024 Dr. Phani Lutz MD Referring Provider Active Start: December 29, 2024 End: December 29, 2024 Team Status: Inactive Member Role Status Dates Dr. William Amado DO Primary Care Provider Active Start: January 04, 2025 End: January 04, 2025 Dr. James Chinchilla MD Attending Provider Active S tart: January 04, 2025 End: January 04, 2025 Dr. James Chinchilla MD Referring Provider Active S tart: January 04, 2025 End: January 04, 2025 Team Status: Inactive Member Role Status Dates Dr. William Amado DO Primary Care Provider Active Start: January 09, 2025 End: January 09, 2025 Dr. William Amado DO Referring Provider Active Start: January 09, 2025 End: January 09, 2025 Dr. James Chinchilla MD Attending Provider Active S tart: January 09, 2025 End: January 09, 2025 Team Status: Inactive Member Role Status Dates Dr. William Amado DO Primary Care Provider Active Start: January 10, 2025 End: January 10, 2025 Dr. William Amado DO Referring Provider Active Start: January 10, 2025 End: January 10, 2025 Dr. Mitchel Zuniga DO Attending Provider Active Start: January 10, 2025 End: January 10, 2025 Team Status: Inactive Member Role Status Dates Dr. William Amado DO Primary Care Provider Active Start: January 24, 2025 End: January 24, 2025 Dr. William Amado DO Referring Provider Active Start: January 24, 2025 End: January 24, 2025 Dr. Ivette Lai DC Attending Provider Active S tart: January 24, 2025 End: January 24, 2025 Team Status: Active Member Role Status Dates Dr. William Amado DO Primary Care Provider Active Start: February 21, 2025 Dr. William Amado DO Referring Provider Active Start: February 21, 2025 Dr. Monika Lovett MD Attending Provider Active Sta rt: February 21, 2025 Team Status: Inactive Member Role Status Dates Dr. William Amado DO Primary Care Provider Active Start: February 21, 2025 End: February 21, 2025 Dr. William Amado DO Referring Provider Active Start: February 21, 2025 End: February 21, 2025 Dr. Ivette Lai DC Attending Provider Active S tart: February 21, 2025 End: February 21, 2025 Team Status: Inactive Member Role Status Dates Dr. William Amado DO Primary Care Provider Active Start: February 21, 2025 End: February 21, 2025 Dr. William Amado DO Referring Provider Active Start: February 21, 2025 End: February 21, 2025 Dr. Monika Lovett MD Attending Provider Active Sta rt: February 21, 2025 End: February 21, 2025 Team Status: Inactive Member Role Status Dates Dr. William Amado DO Primary Care Provider Active Start: March 01, 2025 End: March 01, 2025 Dr. William Amado DO Referring Provider Active Start: March 01, 2025 End: March 01, 2025 Dr. Mitchel Zuniga DO Attending Provider Active Start: March 01, 2025 End: March 01, 2025 Team Status: Active Member Role Status Dates Dr. William Amado DO Primary Care Provider Active Start: March 01, 2025 Dr. William Amado DO Referring Provider Active Start: March 01, 2025 Dr. Mitchel Zuniga DO Attending Provider Active Start: March 01, 2025 Dr. Mitchel Zuniga DO Other Provider Active St art: March 01, 2025 Team Status: Active Member Role/Relationship Status Dates Dr. William Amado DO Primary Care Provider Active Team Status: Inactive Member Role/Relationship Status Dates Dr. William Amado DO Primary Care Provider Active Start: November 15, 2024 End: November 15, 2024 Dr. William Amado DO Referring Provider Active Start: November 15, 2024 End: November 15, 2024 Dr. Ivette Lai DC Attending Provider Active S tart: November 15, 2024 End: November 15, 2024 Team Status: Inactive Member Role/Relationship Status Dates Dr. William Amado DO Primary Care Provider Active Start: November 17, 2024 End: November 17, 2024 DENIZ BELL Attending Provider Active Start : November 17, 2024 End: November 17, 2024 DENIZ BELL Referring Provider Active Start : November 17, 2024 End: November 17, 2024 Team Status: Active Member Role/Relationship Status Dates Dr. William Amado DO Primary Care Provider Active Start: November 20, 2024 Estephania Scott Attending Provider Active Start: November 20, 2024 Team Status: Inactive Member Role/Relationship Status Dates Dr. William Amado DO Primary Care Provider Active Start: December 05, 2024 End: December 05, 2024 Dr. William Amado DO Referring Provider Active Start: December 05, 2024 End: December 05, 2024 Dr. James Chinchilla MD Attending Provider Active S tart: December 05, 2024 End: December 05, 2024 Team Status: Active Member Role/Relationship Status Dates Dr. William Amado DO Primary Care Provider Active Start: December 05, 2024 Dr. James Chinchilla MD Attending Provider Active S tart: December 05, 2024 Dr. James Chinchilla MD Referring Provider Active S tart: December 05, 2024 Team Status: Inactive Member Role/Relationship Status Dates Dr. William Amado DO Primary Care Provider Active Start: December 06, 2024 End: December 06, 2024 Dr. James Chinchilla MD Attending Provider Active S tart: December 06, 2024 End: December 06, 2024 Dr. James Chinchilla MD Referring Provider Active S tart: December 06, 2024 End: December 06, 2024 Team Status: Inactive Member Role/Relationship Status Dates Dr. William Amado DO Primary Care Provider Active Start: December 13, 2024 End: December 13, 2024 Dr. William Amado DO Referring Provider Active Start: December 13, 2024 End: December 13, 2024 Dr. James Chinchilla MD Attending Provider Active S tart: December 13, 2024 End: December 13, 2024 Team Status: Inactive Member Role/Relationship Status Dates Dr. William Amado DO Primary Care Provider Active Start: December 20, 2024 End: December 20, 2024 Dr. William Amado DO Referring Provider Active Start: December 20, 2024 End: December 20, 2024 SHRADDHA Ponce Attending Provider Active Start: December 20, 2024 End: December 20, 2024 Team Status: Inactive Member Role/Relationship Status Dates Dr. William Amado DO Primary Care Provider Active Start: December 20, 2024 End: December 20, 2024 Dr. William Amado DO Referring Provider Active Start: December 20, 2024 End: December 20, 2024 Dr. Ivette Lai DC Attending Provider Active S tart: December 20, 2024 End: December 20, 2024 Team Status: Inactive Member Role/Relationship Status Dates Dr. William Amado DO Primary Care Provider Active Start: December 29, 2024 End: December 29, 2024 Dr. Phani Lutz MD Attending Provider Active Start: December 29, 2024 End: December 29, 2024 Dr. Phani Lutz MD Referring Provider Active Start: December 29, 2024 End: December 29, 2024 Team Status: Inactive Member Role/Relationship Status Dates Dr. William Amado DO Primary Care Provider Active Start: January 04, 2025 End: January 04, 2025 Dr. James Chinchilla MD Attending Provider Active S tart: January 04, 2025 End: January 04, 2025 Dr. James Chinchilla MD Referring Provider Active S tart: January 04, 2025 End: January 04, 2025 Team Status: Inactive Member Role/Relationship Status Dates Dr. William Amado DO Primary Care Provider Active Start: January 09, 2025 End: January 09, 2025 Dr. William Amado DO Referring Provider Active Start: January 09, 2025 End: January 09, 2025 Dr. James Chinchilla MD Attending Provider Active S tart: January 09, 2025 End: January 09, 2025 Team Status: Inactive Member Role/Relationship Status Dates Dr. William Amado DO Primary Care Provider Active Start: January 10, 2025 End: January 10, 2025 Dr. William Amado DO Referring Provider Active Start: January 10, 2025 End: January 10, 2025 Dr. Mitchel Zuniga DO Attending Provider Active Start: January 10, 2025 End: January 10, 2025 Team Status: Inactive Member Role/Relationship Status Dates Dr. William Amado DO Primary Care Provider Active Start: January 24, 2025 End: January 24, 2025 Dr. William Amado DO Referring Provider Active Start: January 24, 2025 End: January 24, 2025 Dr. Ivette Lai DC Attending Provider Active S tart: January 24, 2025 End: January 24, 2025 Team Status: Inactive Member Role/Relationship Status Dates Dr. William Amado DO Primary Care Provider Active Start: February 21, 2025 End: February 21, 2025 Dr. William Amado DO Referring Provider Active Start: February 21, 2025 End: February 21, 2025 Dr. Monika Lovett MD Attending Provider Active Sta rt: February 21, 2025 End: February 21, 2025 Team Status: Inactive Member Role/Relationship Status Dates Dr. William Amado DO Primary Care Provider Active Start: February 21, 2025 End: February 21, 2025 Dr. William Amado DO Referring Provider Active Start: February 21, 2025 End: February 21, 2025 Dr. Ivette Lia DC Attending Provider Active S tart: February 21, 2025 End: February 21, 2025 Team Status: Inactive Member Role/Relationship Status Dates Dr. William Amado DO Primary Care Provider Active Start: March 01, 2025 End: March 01, 2025 Dr. William Amado DO Referring Provider Active Start: March 01, 2025 End: March 01, 2025 Dr. Mitchel Zuniga DO Attending Provider Active Start: March 01, 2025 End: March 01, 2025 Team Status: Active Member Role/Relationship Status Dates Dr. William Amado DO Primary Care Provider Active Start: March 01, 2025 Dr. William Amado DO Referring Provider Active Start: March 01, 2025 Dr. Mitchel Zuniga DO Attending Provider Active Start: March 01, 2025 Dr. Mitchel Zuniga DO Other Provider Active St art: March 01, 2025 Team Status: Inactive Member Role/Relationship Status Dates Dr. William Amado DO Primary Care Provider Active Start: March 12, 2025 End: March 12, 2025 Dr. William Amado DO Referring Provider Active Start: March 12, 2025 End: March 12, 2025 Dr. Mitchel Zuniga DO Attending Provider Active Start: March 12, 2025 End: March 12, 2025 Team Status: Inactive Member Role/Relationship Status Dates Dr. William Amado DO Primary Care Provider Active Start: December 05, 2024 End: December 05, 2024 Dr. William Amado DO Referring Provider Active Start: December 05, 2024 End: December 05, 2024 Dr. James Chinchilla MD Attending Provider Active S tart: December 05, 2024 End: December 05, 2024 Team Status: Active Member Role/Relationship Status Dates Dr. William Amado DO Primary Care Provider Active Start: December 05, 2024 Dr. James Chinchilla MD Attending Provider Active S tart: December 05, 2024 Dr. James Chinchilla MD Referring Provider Active S tart: December 05, 2024 Team Status: Inactive Member Role/Relationship Status Dates Dr. William Amado DO Primary Care Provider Active Start: December 06, 2024 End: December 06, 2024 Dr. James Chinchilla MD Attending Provider Active S tart: December 06, 2024 End: December 06, 2024 Dr. James Chinchilla MD Referring Provider Active S tart: December 06, 2024 End: December 06, 2024 Team Status: Inactive Member Role/Relationship Status Dates Dr. William Amado DO Primary Care Provider Active Start: December 13, 2024 End: December 13, 2024 Dr. William Amado DO Referring Provider Active Start: December 13, 2024 End: December 13, 2024 Dr. James Chinchilla MD Attending Provider Active S tart: December 13, 2024 End: December 13, 2024 Team Status: Inactive Member Role/Relationship Status Dates Dr. William Amado DO Primary Care Provider Active Start: December 20, 2024 End: December 20, 2024 Dr. William Amado DO Referring Provider Active Start: December 20, 2024 End: December 20, 2024 SHRADDHA Ponce Attending Provider Active Start: December 20, 2024 End: December 20, 2024 Team Status: Inactive Member Role/Relationship Status Dates Dr. William Amado DO Primary Care Provider Active Start: December 20, 2024 End: December 20, 2024 Dr. William Amado DO Referring Provider Active Start: December 20, 2024 End: December 20, 2024 Dr. Ivette Lai DC Attending Provider Active S tart: December 20, 2024 End: December 20, 2024 Team Status: Inactive Member Role/Relationship Status Dates Dr. William Amado DO Primary Care Provider Active Start: December 29, 2024 End: December 29, 2024 Dr. Phani Lutz MD Attending Provider Active Start: December 29, 2024 End: December 29, 2024 Dr. Phani Lutz MD Referring Provider Active Start: December 29, 2024 End: December 29, 2024 Team Status: Inactive Member Role/Relationship Status Dates Dr. William Amado DO Primary Care Provider Active Start: January 04, 2025 End: January 04, 2025 Dr. James Chinchilla MD Attending Provider Active S tart: January 04, 2025 End: January 04, 2025 Dr. James Chinchilla MD Referring Provider Active S tart: January 04, 2025 End: January 04, 2025 Team Status: Inactive Member Role/Relationship Status Dates Dr. William Amado DO Primary Care Provider Active Start: January 09, 2025 End: January 09, 2025 Dr. William Amado DO Referring Provider Active Start: January 09, 2025 End: January 09, 2025 Dr. James Chinchilla MD Attending Provider Active S tart: January 09, 2025 End: January 09, 2025 Team Status: Inactive Member Role/Relationship Status Dates Dr. William Amado DO Primary Care Provider Active Start: January 10, 2025 End: January 10, 2025 Dr. William Amado DO Referring Provider Active Start: January 10, 2025 End: January 10, 2025 Dr. Mitchel Zuniga DO Attending Provider Active Start: January 10, 2025 End: January 10, 2025 Team Status: Inactive Member Role/Relationship Status Dates Dr. William Amado DO Primary Care Provider Active Start: January 24, 2025 End: January 24, 2025 Dr. William Amado DO Referring Provider Active Start: January 24, 2025 End: January 24, 2025 Dr. Ivette Lai DC Attending Provider Active S tart: January 24, 2025 End: January 24, 2025 Team Status: Inactive Member Role/Relationship Status Dates Dr. William Amado DO Primary Care Provider Active Start: February 21, 2025 End: February 21, 2025 Dr. William Amado DO Referring Provider Active Start: February 21, 2025 End: February 21, 2025 Dr. Monika Lovett MD Attending Provider Active Sta rt: February 21, 2025 End: February 21, 2025 Team Status: Inactive Member Role/Relationship Status Dates Dr. William Amado DO Primary Care Provider Active Start: February 21, 2025 End: February 21, 2025 Dr. William Amado DO Referring Provider Active Start: February 21, 2025 End: February 21, 2025 Dr. Ivette Lai DC Attending Provider Active S tart: February 21, 2025 End: February 21, 2025 Team Status: Inactive Member Role/Relationship Status Dates Dr. William Amado DO Primary Care Provider Active Start: March 01, 2025 End: March 01, 2025 Dr. William Amado DO Referring Provider Active Start: March 01, 2025 End: March 01, 2025 Dr. Mitchel Zuniga DO Attending Provider Active Start: March 01, 2025 End: March 01, 2025 Team Status: Active Member Role/Relationship Status Dates Dr. William Amado DO Primary Care Provider Active Start: March 01, 2025 Dr. William Amado DO Referring Provider Active Start: March 01, 2025 Dr. Mitchel Zuniga DO Attending Provider Active Start: March 01, 2025 Dr. Mitchel Zuniga DO Other Provider Active St art: March 01, 2025 Team Status: Inactive Member Role/Relationship Status Dates Dr. William Amado DO Primary Care Provider Active Start: March 12, 2025 End: March 12, 2025 Dr. William Amado DO Referring Provider Active Start: March 12, 2025 End: March 12, 2025 Dr. Mitchel Zuniga DO Attending Provider Active Start: March 12, 2025 End: March 12, 2025 Team Status: Inactive Member Role/Relationship Status Dates Dr. William Amado DO Primary Care Provider Active Start: March 28, 2025 End: March 28, 2025 Dr. William Amado DO Referring Provider Active Start: March 28, 2025 End: March 28, 2025 Dr. Ivette Lai , [place] Attending Provider Active S tart: March 28, 2025 End: March 28, 2025 Reason for Visit (unrecogniz ed section and content) Reason Comments Follow Up Reason Comments Results Reason Comments Follow-up 6 month med check Reason Comments NED f/u 2 weeks Reason Comments Post Op Reason Comments Pituitary Problem Reason Comments New Patient Post op Reason Comments Labs Reason Comments Returning Patient's Call Reason Comments Cough Cough, congestion an d sinus x 3 weeks Specialty Diagnoses / Procedures Referred By Contac t Referred To Contact MR IMAGING Diagnoses Microadenoma Procedures MRI PITUITARY WO/W IVCON MRI BRAIN BRAIN STEM W/O W/CONTRAST MATERIAL Dolly Lucas APRN.[employer]S MANAGER [address] [id number] [facility] [place] [address] Referral ID Status Reason Start Date Expiration Date V isits Requested Visits Authorized [id number] Closed Auto-Generate d Referral 12/09/2021 01/08/2023 1 1 Reason Comments Follow-up 6 month med check Reason Onset Date Comments Med Refill 08/09/2023 Reason Comments Flu Like Symptoms Exposure to Flu A by wifeCough, chest congestion, SOB, sore throat, headache x 1 day Specialty Diagnoses / Procedures Referred By Contac t Referred To Contact MR IMAGING Diagnoses Pituitary adenoma (HCC) Procedures MRI PITUITARY WO/W IVCON MRI BRAIN BRAIN STEM W/O W/CONTRAST MATERIAL Misha Weaver MD [address] [place] [address] [facility] [place] [address] Referral ID Status Reason Start Date Expiration Date V isits Requested Visits Authorized [id number] Closed Auto-Generate d Referral 03/17/2023 04/15/2024 1 1 Reason Comments Follow-up Med check Reason Onset Date Comments Med Refill 01/19/2024 Reason Comments Appointment Reason Comments Annual Exam Physical Reason Onset Date Comments Other 10/23/2024 Reason Onset Date Comments Referral 11/11/2024 Dr Parmar Reason Onset Date Comments Referral 11/16/2024 Reason Onset Date Comments Labs Only 10/22/2024 (unrecognized sect ion and content) No Status Records FoundNo Status Records FoundNo Status Records FoundNo Status Records Found INFORMATION SOURCE (unrecogn ized section and content) DATE CREATED AUTHOR 03/17/2023 [facility] DATE CREATED AUTHOR AUTHOR'S ORGANIZ ATION 01/09/2025 [facility] DATE CREATED AUTHOR AUTHOR'S ORGANIZ ATION 01/31/2025 [facility] DATE CREATED AUTHOR AUTHOR'S ORGANIZ ATION 04/16/2025 [facility] FOR RECORDS PERTAINING TO PATIENTS WHO ARE OR HAVE BEEN ENROLLED IN A CHEMICAL DEPENDENCY/SUBSTANCEABUSE PROGRAM, SOME INFORMATION MAY BE OMITTED. This clinical summary was aggregated from multiple sources. Caution should be exercised in using it in the provision of clinical care. This summary normalizes information from multiple sources, and as a consequence, information in this document may materially change the coding, format and clinical context of patient data. In addition, data may be omitted in some cases. CLINICAL DECISIONS SHOULD BE BASED ON THE PRIMARY CLINICAL RECORDS. [facility]. provides no warranty or guarantee of the accuracy or completeness of information in this document.
[2025-04-27 10:38] LABS: Hematocrit 30.9 % (40-54); Hemoglobin 9.9 g/dL (13.0-16.5); Immature Granulocytes Count 0.040 X10^3/uL (0.0-0.0); Mean Corp Hgb Conc 32.0 g/dL (32-36); Mean Corpuscular Volume 93.1 fL (80-94); Mean Platelet Vol. 9.8 fl (6.2-12.0); NRBC Flagged by Analyzer 0 % (0-5); Platelet Count 278 K/mm3 (150-450); RBC Distribution Width CV 14.9 % (11.6-14.6); RBC Distribution Width SD 50.8 fl (35.1-43.9); Red Blood Count 3.32 M/mm3 (4.6-6.2); White Blood Count 4.9 K/mm3 (4.4-11.0)
[2025-04-27 11:26] LABS: AST(SGOT) 72 U/L (<=37); Alanine Aminotransfer ALT/SGPT 99 U/L (<=46); Albumin, Serum 4.4 g/dL (3.4-4.8); Alkaline Phosphatase 68 U/L (40-129); Anion Gap 14 (5-15); BUN 19 mg/dL (4-19); BUN/Creat Ratio 15.2 RATIO (10-20); Calcium,Total 9.2 mg/dL (7.6-11.0); Carbon Dioxide 26.3 mmol/L (21.0-32.0); Chloride 101 mmol/L (98-108); Ferritin 258 ng/mL (37-417); Globulin 2.3 g/dL (2.2-4.2); Glucose 103 mg/dL (70-99); Potassium 3.5 mmol/L (3.3-5.1); Vitamin B12 799 pg/mL (180-914)
[2025-04-27 11:45] LABS: Iron 62 ug/dL (65-175); Iron Binding Capacity,Unsat 168 ug/dL (228-428); LDH 271 U/L (87-241)
[2025-04-27 11:51] LABS: Iron Binding Capacity,Total 230 ug/dL (250-450)
[2025-04-29 17:08] LABS: Immunoglobulin A 169 mg/dL (61-437)
== END | disposition home or self-care (01) ==
LOC: LAB 09:23
PROVIDERS: PCP Family Medicine; Referring Provider Internal Medicine Medical Oncology; Visit Provider Internal Medicine Medical Oncology
DX: E61.1 Iron deficiency (principal); K90.0 Celiac disease; R71.8 Other abnormality of red blood cells
CPT/HCPCS: 36415; 80053; 82607; 82668; 82728; 82784; 83516; 83540; 83550; 83615; 85025; 86255

== ENCOUNTER → 2025-07-06 | Outpatient (CLI) | payer BC, SELFPAY ==
[2025-07-06 10:08] LABS: PSA,Total- Diagnostic 4.69 ng/mL (0.00-4.00)
== END | disposition home or self-care (01) ==
LOC: LAB 08:35
PROVIDERS: PCP Family Medicine; Referring Provider Urology; Visit Provider Urology
DX: R97.20 Elevated prostate specific antigen [PSA] (principal)
CPT/HCPCS: 36415; 84153